=== PATIENT | female | born 1940 | race Caucasian/White ===

== ENCOUNTER 2020-01-02 14:15 | Inpatient (IN) | payer MEDICARE, SELFPAY ==
[2020-01-02] VITALS (9 sets, daily range): BP systolic 103–144; BP diastolic 46–65; PULSE 88–110; RESP 22–26; TEMP 36.7; O2SAT 93–100; BMI 15.0
--- NOTE | 2020-01-02 16:27 | ECG_ITS ---
Test Reason : SOB Blood Pressure : / mmHG Vent. Rate : 101 BPM Atrial Rate : 101 BPM P-R Int : 162 ms QRS Dur : 088 ms QT Int : 360 ms P-R-T Axes : 072 033 065 degrees QTc Int : 466 ms Sinus tachycardia Otherwise normal ECG Compare to previous EKG 24-Apr-2019 Heart rate has increased Referred By: Lolita Contreras Electronically Signed By:TODD SEWELL MD
--- NOTE | 2020-01-02 16:27 | XR_ITS ---
EXAMINATION: XR CHEST CLINICAL INFORMATION: Shortness of breath COMPARISON: 08/14/2017 TECHNIQUE: Frontal view of the chest was obtained. FINDINGS: Cardiac leads overlie the chest. The lungs are well expanded. Subtle opacities are seen in the right perihilar/infrahilar area. No pleural effusion or pneumothorax. The cardiomediastinal silhouette is within normal limits for this technique. No acute osseous abnormality. XR/XR chest 1V IMPRESSION: Subtle right mid to lower lung opacities may be infectious or inflammatory. There is no dense consolidation.
--- NOTE | 2020-01-02 16:29 | ED.URI ---
HPI - URI/Sore Throat General Chief Complaint: Upper Respiratory Symptoms Stated Complaint: LOOSE STOOL,FEVER 101 HX GASTRITIS Time Seen by Provider: 01/02/20 16:21 Source: patient Mode of arrival: EMS Limitations: no limitations History of Present Illness HPI Narrative: 79-year-old female with chronic gastritis, and chronic nonbloody watery diarrhea, patient presented with diarrhea and subjective fever last night, patient also describes some upper respiratory symptoms of exertional dyspnea and dry coughing, patient stated that she has been quarantine at home for the last 10 days and have not been exposed to somebody who is sick , also declined any recent travel. MD elicited complaint: fever and cough Onset (ago): day(s) (2) Consistency: intermittent Severity: moderate Exacerbating factors: nothing Relieving factors: nothing Related Data Home Medications Medication Instructions Recorded Confirmed omeprazole 20 mg PO DAILY@0630 12/16/19 01/02/20 pravastatin 20 mg PO BEDTIME 12/16/19 01/02/20 losartan 25 mg PO DAILY 12/26/19 01/02/20 mesalamine 1,600 mg PO BID 12/26/19 01/02/20 calcium citrate-vitamin D3 1 tab PO BID 01/02/20 01/02/20 [Citracal plus D] potassium chloride 20 meq PO BID 01/02/20 01/02/20 Previous Rx's Medication Instructions Recorded cholecalciferol (vitamin D3) 25 25 mcg PO DAILY 90 Days #90 cap 12/14/19 mcg (1,000 unit) capsule Allergies Allergy/AdvReac Type Severity Reaction Status Date / Time cephalexin [From KEFLEX] Allergy Unknown pt cannot Verified 12/26/19 16:05 remember reaction codeine [CODEINE] Allergy Unknown MOOD Verified 01/02/20 21:58 CHANGE, dizziness indigotindisulfonic acid Allergy Unknown increased Verified 10/21/19 00:00 [Indigo [place]] blood pressure blue dye [BLUE DYE] AdvReac Intermediate ELEVATED Verified 01/02/20 21:58 BLOOD PRESSURE lisinopril [LISINOPRIL] AdvReac Unknown cough, dry Verified 01/02/20 21:58 cough simvastatin [From ZOCOR] AdvReac Unknown pt can't Verified 01/02/20 21:58 remember reaction indigo charmine Allergy Unknown hypertensio Uncoded 06/11/19 00:00 n keflex Allergy Unknown Unknown Uncoded 12/26/19 16:05 lisinopril Allergy Unknown cough Uncoded 06/11/19 00:00 zocor Allergy Unknown Unknown Uncoded 12/26/19 16:05 Codeine Sulfate AdvReac Unknown dizziness Uncoded 10/21/19 00:00 From INDIGO CARMINE AdvReac Unknown HIGH BLOOD Uncoded 11/28/19 15:11 PRESSURE Review of Systems Review of Systems: all other systems are reviewed and are negative Constitutional: Reports as per HPI and Reports no additional constitutional complaints Eyes: Reports as per HPI and Reports no additional eye complaints Reports system reviewed and no additional complaints, except as documented Cardiovascular: Reports as per HPI and Reports no additional cardiovascular complaints Respiratory: Reports as per HPI and Reports no additional respiratory complaints Gastrointestinal: complained of nonbloody watery diarrhea for the past 2 days. Genitourinary: Reports no additional female genitourinary complaints Musculoskeletal: Reports no additional musculoskeletal complaints Skin/Breast: Reports system reviewed and no additional complaints, except as docu Psychiatric: Reports no additional psychiatric complaints Endocrine: Reports no additional endocrine complaints Hematologic/Lymphatic: Reports no additional hematologic/lymphatic complaints Allergic/Immunologic: Reports no additional allergic/immunologic complaints Reports system reviewed and no additional complaints, except as documented and Reports Abnormal speech present [facility] Past Medical History Medical History Cholecystectomy planned Diarrhea Social History Social History Household Members: Spouse Housing: House Do you presently have visiting nurse or other home services: No Alcohol intake: unknown Smoking Status: Never smoker Use of substances other than those prescribed or required for medical reasons: No Currently Displaying Signs/Symptoms of Drug Intoxication Withdrawal: No Have you been hit, kicked, punched, or otherwise hurt by someone within the past year? If so, by whom?: No Do you feel safe in your current relationship?: No Is there a partner from a previous relationship who is making you feel unsafe now?: No Are you made to feel afraid or neglected: No Advance Directives: No Advance Directives Information Provided: No Advance Directives on File: Yes (A Will at home) Do you have thoughts of harming others: None Do you have a plan to hurt others: No Plan Recently lost weight without trying: Yes service: No Physical Exam Vital Signs: Vital Signs: Vital Signs Temp Pulse Resp BP Pulse Ox 01/02/20 17:11 110 H 122/60 01/02/20 17:10 105 H 103/65 01/02/20 17:09 102 H 144/50 H 01/02/20 17:07 104 H 26 H 144/50 H 100 01/02/20 14:49 88 22 H 01/02/20 14:33 99 01/02/20 14:21 98.0 F 95 22 H 122/53 L 100 Body Mass Index 15.0 vital signs have been reviewed as normal and appeared to be correct. Blood pressure normal. Heart rate normal. Respiration rate normal. Temperature normal. Oxygen saturation normal. Appearance: Alert. Oriented X3. No acute distress. Head: Normal external exam. Normocephalic. Atraumatic. No Mei signs noted. No raccoon eyes noted Eyes: PERRLA. EOMI. Conjunctiva and sclera normal. Eyelids normal. ENT: EAC normal. TM's Normal. Pharynx normal. Uvula midline. Moist mucous membranes. No trismus noted. No drooling noted. No muffled voice noted. Neck: Normal inspection. Neck supple. FROM. No adenopathy. Thyroid Normal. No meningeal signs. No neck mass noted. CVS: Normal heart rate and rhythm. Heart sound normal. No murmurs noted. Pulses normal throughout. Respiratory: No respiratory distress. Painless inspiration. Breath sounds normal. No wheezes/rales/rhonchi noted. Chest nontender. No accessory muscle usage noted or decreased air movement noted. Abdomen: Soft and nontender. Bowel sounds normal in all 4 quadrants. No distention noted. No organomegaly noted. No visible injury noted. Back: No CVA tenderness. Full range of motion noted. Skin: Skin warm and dry. Normal skin color. Normal skin turgor. No rashes/lesions/lacerations noted. Extremities: No lower extremity edema. Extremities exhibit normal range of motion. Extremities nontender. Neuro: Oriented X 3. No motor deficit. No sensory deficit. Reflexes normal. Course Course Course Narrative: This is a 79-year-old female presented with 2 days of nonbloody watery diarrhea ( patient has a chronic diarrhea and chronic gastric issue), patient also been complaining of fever since yesterday and dry cough. Will check labs workup for sepsis versus severe hypovolemic diarrhea. MDM - URI/Sore Throat MDM Narrative Medical decision making narrative: 79 years old female presented with multiple problems. 1. chronic gastric issue with chronic nonbloody watery diarrhea that increased since yesterday, [place] [id number], patient also with metabolic acidosis and low bicarb which is felt to be secondary to severe diarrhea and hypokalemia, patient tested hypovolemic orthostatic vital sign, patient received IV fluid in the ED to replete her hypokalemia, we will start the patient on bicarb drip. 2. questionable subtle right mid lung opacification which is felt to be subtle to cause sepsis patient with normal lactic acid and remained normotensive. Patient not in severe sepsis at this point will treat simple noncomplicated Community acquired pneumonia, patient is tachycardic because hypovolemia and dehydration, because of low bicarb due to diarrhea patient is In metabolic acidosis which causing patient to be tachypneic as part of respiratory rule to correct the metabolic acidosis. Patient do not have a lactic acidosis. 3. The case discussed with Dr. michaels (Tractor Sweeper Driver)who felt the patient should be okay on the regular medical floor. Lab Data Result diagrams: 01/03/20 06:05 01/03/20 19:30 Labs: Lab Results 01/02/20 01/02/20 01/02/20 Range/Units 17:18 17:30 17:30 WBC 20.6 H (4.8-10.8) X10*3/uL RBC 3.84 L (4.20-5.50) X10*6/uL Hgb 10.5 L (12.0-16.0) g/dl Hct 33.2 L (37-47) % MCV 86.5 (80-98) fL MCH 27.3 (27.0-33.0) pg MCHC 31.6 (31.0-35.0) g/dl RDW 19.8 H (11.0-16.0) % Plt Count 289 D (160-400) X10*3/uL MPV 10.1 (9.4-12.3) fL Absolute Nucleated RBC 0.040 H (0.0-0.012) X10*3/uL Nucleated RBC % (auto) 0.2 (0.0-0.2) /100WBC ABG pH (7.35-7.45) ABG pCO2 (32-45) mmhg ABG pO2 (83-108) mmhg ABG HCO3 (22-26) mmol/l ABG O2 Saturation % ABG Base Excess Oxygen Given Sodium 140 (135-145) mmol/L Potassium 4.3 D (3.3-5.1) mmol/l Chloride 120 H (96-108) mmol/L Carbon Dioxide < 5 L* D (22-29) mmol/L Anion Gap 19 (12-20) BUN 31 H (9-16) mg/dL Creatinine 1.80 H (0.5-1.4) mg/dL Estim Creat Clear Calc 14.7 Estimated GFR 27 Random Glucose 155 H (60-115) mg/dL Lactic Acid (0.5-2.0) mmol/L Calcium 7.1 L (8.4-10.2) mg/dL Magnesium 1.8 (1.6-2.6) mg/dL Total Bilirubin (0.0-1.0) mg/dL Direct Bilirubin (0.0-0.5) mg/dL AST (5-31) U/L ALT (0-31) U/L Alkaline Phosphatase (39-117) U/L B-Natriuretic Peptide (<100) pg/mL Total Protein (6.5-8.0) g/dL Albumin (3.5-5.0) g/dL Lipase (8-78) U/L Urine Color YELLOW Urine Appearance HAZY Urine pH 6.0 (5.0-8.0) Ur Specific [place] 1.025 (1.005-1.025) Urine Protein 1+ H (NEG-TRACE) MG/DL Urine Glucose (UA) NEG (NEG) MG/DL Urine Ketones 5 (NEG) MG/DL Urine Blood NEG (NEG) Urine Nitrite NEG (NEG) Ur Leukocyte Esterase 1+ H (NEG) Urine RBC 1-4 (0) /HPF Urine WBC 10-14 H (0-4) /HPF Ur Squamous Epith Cells 2+ /LPF Urine Bacteria 2+ /LPF Granular Casts 10-14 /LPF Coronavirus (PCR) (Negative) 10/22/20 10/22/20 10/22/20 Range/Units 17:30 17:30 17:30 WBC (4.8-10.8) X10*3/uL RBC (4.20-5.50) X10*6/uL Hgb (12.0-16.0) g/dl Hct (37-47) % MCV (80-98) fL MCH (27.0-33.0) pg MCHC (31.0-35.0) g/dl RDW (11.0-16.0) % Plt Count (160-400) X10*3/uL MPV (9.4-12.3) fL Absolute Nucleated RBC (0.0-0.012) X10*3/uL Nucleated RBC % (auto) (0.0-0.2) /100WBC ABG pH (7.35-7.45) ABG pCO2 (32-45) mmhg ABG pO2 (83-108) mmhg ABG HCO3 (22-26) mmol/l ABG O2 Saturation % ABG Base Excess Oxygen Given Sodium (135-145) mmol/L Potassium (3.3-5.1) mmol/l Chloride (96-108) mmol/L Carbon Dioxide (22-29) mmol/L Anion Gap (12-20) BUN (9-16) mg/dL Creatinine (0.5-1.4) mg/dL Estim Creat Clear Calc Estimated GFR Random Glucose (60-115) mg/dL Lactic Acid 1.0 (0.5-2.0) mmol/L Calcium (8.4-10.2) mg/dL Magnesium (1.6-2.6) mg/dL Total Bilirubin 0.5 (0.0-1.0) mg/dL Direct Bilirubin 0.3 (0.0-0.5) mg/dL AST 8 (5-31) U/L ALT 7 (0-31) U/L Alkaline Phosphatase 88 D (39-117) U/L B-Natriuretic Peptide 83 (<100) pg/mL Total Protein 6.7 (6.5-8.0) g/dL Albumin 3.5 (3.5-5.0) g/dL Lipase 14 (8-78) U/L Urine Color Urine Appearance Urine pH (5.0-8.0) Ur Specific [place] (1.005-1.025) Urine Protein (NEG-TRACE) MG/DL Urine Glucose (UA) (NEG) MG/DL Urine Ketones (NEG) MG/DL Urine Blood (NEG) Urine Nitrite (NEG) Ur Leukocyte Esterase (NEG) Urine RBC (0) /HPF Urine WBC (0-4) /HPF Ur Squamous Epith Cells /LPF Urine Bacteria /LPF Granular Casts /LPF Coronavirus (PCR) (Negative) 01/02/20 01/02/20 01/02/20 Range/Units 17:31 17:31 18:42 WBC (4.8-10.8) X10*3/uL RBC (4.20-5.50) X10*6/uL Hgb (12.0-16.0) g/dl Hct (37-47) % MCV (80-98) fL MCH (27.0-33.0) pg MCHC (31.0-35.0) g/dl RDW (11.0-16.0) % Plt Count (160-400) X10*3/uL MPV (9.4-12.3) fL Absolute Nucleated RBC (0.0-0.012) X10*3/uL Nucleated RBC % (auto) (0.0-0.2) /100WBC ABG pH 7.13 L* (7.35-7.45) ABG pCO2 11 L* (32-45) mmhg ABG pO2 119 H (83-108) mmhg ABG HCO3 4 L (22-26) mmol/l ABG O2 Saturation 98.1 % ABG Base Excess -23.2 Oxygen Given ROOM AIR Sodium (135-145) mmol/L Potassium (3.3-5.1) mmol/l Chloride (96-108) mmol/L Carbon Dioxide (22-29) mmol/L Anion Gap (12-20) BUN (9-16) mg/dL Creatinine (0.5-1.4) mg/dL Estim Creat Clear Calc Estimated GFR Random Glucose (60-115) mg/dL Lactic Acid (0.5-2.0) mmol/L Calcium (8.4-10.2) mg/dL Magnesium Cancelled (1.6-2.6) mg/dL Total Bilirubin (0.0-1.0) mg/dL Direct Bilirubin (0.0-0.5) mg/dL AST (5-31) U/L ALT (0-31) U/L Alkaline Phosphatase (39-117) U/L B-Natriuretic Peptide (<100) pg/mL Total Protein (6.5-8.0) g/dL Albumin (3.5-5.0) g/dL Lipase (8-78) U/L Urine Color Urine Appearance Urine pH (5.0-8.0) Ur Specific [place] (1.005-1.025) Urine Protein (NEG-TRACE) MG/DL Urine Glucose (UA) (NEG) MG/DL Urine Ketones (NEG) MG/DL Urine Blood (NEG) Urine Nitrite (NEG) Ur Leukocyte Esterase (NEG) Urine RBC (0) /HPF Urine WBC (0-4) /HPF Ur Squamous Epith Cells /LPF Urine Bacteria /LPF Granular Casts /LPF Coronavirus (PCR) NEGATIVE (Negative) Imaging Data Chest x-ray: Radiologist's impression: [place] right mid to lower lung opacities may be infectious or inflammatory. CT scan - abdomen: My impression: Ascending colitis. Critical Care Time Critical Care Time Critical Care Time: Yes Total Critical Care Time: 45 Attestation: I spent 45 minutes for critical scale level for the patient, direct care at the bedside, discussing the case with email production consultant Dr. medel, reviewing labs, reviewing x-ray reviewing CT, managing severe metabolic acidosis. Discharge Plan Discharge Clinical Impression: Colitis, Hypovolemia, Dehydration, Metabolic acidosis Community acquired pneumonia Qualifiers: Laterality: right Lung location: middle lobe of lung Qualified Code(s): J18.9 - Pneumonia, unspecified organism Patient Disposition: Admitted As Inpatient Interventions: Admission Worksheet (ED) Last Done: 01/03/20 02:24 Discharge Date/Time: 01/03/20 03:00
[2020-01-02 17:32] LABS: Glucose Urine UA NEG (NEG); Leukocyte Esterase Urine 1+ (NEG); Nitrite Urine NEG (NEG); Specific Gravity - Urine 1.025 (1.005-1.025); Urine Blood NEG (NEG); Urine Ketones 5 MG/DL (NEG); Urine Protein 1+ MG/DL (NEG-TRACE)
[2020-01-02 17:34] LABS: Appearance Urine HAZY; Color Urine YELLOW
[2020-01-02 17:38] LABS: Hematocrit 33.2 % (37-47); Hemoglobin 10.5 g/dl (12.0-16.0); Mean Corpuscular HGB Conc 31.6 g/dl (31.0-35.0); Mean Corpuscular Hemoglobin 27.3 pg (27.0-33.0); Mean Corpuscular Volume 86.5 fL (80-98); Mean Platelet Volume 10.1 fL (9.4-12.3); NRBC Pct Auto 0.2 /100WBC (0.0-0.2); Platelet Count 289 X10*3/uL (160-400); Red Blood Count 3.84 X10*6/uL (4.20-5.50); Red Cell Distribution Width 19.8 % (11.0-16.0); White Blood Count 20.6 X10*3/uL (4.8-10.8)
[2020-01-02 17:47] LABS: Bacteria Urine 2+ /LPF; Squamous Epithelial Cell Urine 2+ /LPF
[2020-01-02 18:06] LABS: Alanine Aminotransferase 7 U/L (0-31); Albumin Level 3.5 g/dL (3.5-5.0); Alkaline Phosphatase 88 U/L (39-117); Aspartate Amino Transferase 8 U/L (5-31); Bilirubin Direct 0.3 mg/dL (0.0-0.5); Bilirubin Total 0.5 mg/dL (0.0-1.0); Lipase 14 U/L (8-78); Total Protein 6.7 g/dL (6.5-8.0)
[2020-01-02 18:10] LABS: B Type Natriuretic Peptide 83 pg/mL (<100)
[2020-01-02 18:17] LABS: Anion Gap 19 (12-20); Blood Urea Nitrogen 31 mg/dL (9-16); Calcium 7.1 mg/dL (8.4-10.2); Carbon Dioxide < 5 mmol/L (22-29); Chloride 120 mmol/L (96-108); Creatinine Clr Calc Pharmacy 14.7; Estimated Glomerular Filt Rate 27; Glucose Random 155 mg/dL (60-115); Potassium 4.3 mmol/l (3.3-5.1); Sodium 140 mmol/L (135-145)
--- NOTE | 2020-01-02 18:39 | CT_ITS ---
EXAMINATION: CT ABDOMEN AND PELVIS WITHOUT CONTRAST CLINICAL INFORMATION: Severe diarrhea and abdominal cramps. COMPARISON: CT abdomen and pelvis 08/05/2017 and MRI abdomen 08/07/2017 TECHNIQUE: Multidetector volumetric imaging was performed from the superior aspect of the liver through the pubic symphysis. Sagittal and coronal reformatted images were obtained on the technologist's workstation. This CT examination was performed using dose optimization techniques as appropriate, variously including the following: *Automated exposure control *Adjustment of mA and/or kV according to patient size (this includes techniques or standardized protocols for targeted exams where dose is matched to indication/reason for exam; i.e. extremities or head) *Use of iterative reconstruction technique DLP: 306 mGy-cm FINDINGS: LUNG BASES: There is patchy groundglass attenuation right lower lobe. The left lower lobe, is normal. The heart size is normal. LIVER, GALLBLADDER, AND BILIARY TREE: The liver is normal in size, shape, and attenuation. No focal hepatic lesion or biliary ductal dilatation is present. The gallbladder has been surgically removed. PANCREAS: Unremarkable. SPLEEN: There is mild splenomegaly with spleen measuring 14 cm in AP dimension. ADRENAL GLANDS: Unremarkable. KIDNEYS AND URETERS: The kidneys are normal in size, shape, and attenuation. No hydronephrosis, hydroureter, or calculi seen. No perinephric stranding. There is a large 6.2 x 4.7 cm upper pole and smaller 3.6 cm mid pole right renal cyst. There is punctate calcification or small stone in the upper pole right kidney. BLADDER: The bladder is distended. GASTROINTESTINAL TRACT: There is diffuse mural thickening and dilation of cecum and ascending colon with stool and gas within suggestive of ascending colitis the transverse and descending colon is normal caliber. The small bowel loops are normal caliber. No free air free fluid seen. ABDOMINAL WALL: No significant hernia is appreciated. LYMPH NODES: Normal. VASCULAR: Unremarkable. PELVIC VISCERA: There is no free fluid or free air. No abnormal pelvic or inguinal lymph nodes seen. OSSEOUS STRUCTURES: There are degenerative disc changes L4-L5 level-disc levels with moderate ventral spondylosis. No lytic process seen. No compression fracture. CT/CT abdomen pelvis wo con IMPRESSION: 1 a suggestive of ascending colitis without pneumatosis or diverticulitis. There is moderate stool and gas seen in the cecum and the ascending colon rest of colon is unremarkable. Right renal cyst but no radiopaque calculi or hydronephrosis seen on either side. Nonobstructive radiopaque calculi upper pole right kidney. Cholecystectomy. Mild groundglass attenuation in right lower lobe.
[2020-01-02 18:44] LABS: SARS COV2 PCR INHOUSE NEGATIVE (Negative)
[2020-01-02 18:46] LABS: Pt Ventilation O2% ROOM AIR
[2020-01-02 18:55] LABS: pH ABG 7.13 (7.35-7.45)
[2020-01-02 18:56] LABS: ABG PCO2 11 mmhg (32-45); Base Excess ABG -23.2; HCO3 ABG 4 mmol/l (22-26); PO2 ABG 119 mmhg (83-108)
[2020-01-02 18:57] LABS: Oxygen Saturation ABG 98.1 %
[2020-01-02] MEDS: 0.9 % Sodium Chloride 1,000 ML 999 ML IVCONT (19:03)
[2020-01-02] MEDS: levoFLOXacin/D5W 750 MG/150 ML PIGGYBACK 100 MG IV (19:06)
[2020-01-02 19:09] LABS: Magnesium 1.8 mg/dL (1.6-2.6)
[2020-01-02] MEDS: 0.9 % Sodium Chloride 1,000 ML 999 ML IV (19:09)
--- NOTE | 2020-01-02 21:29 | P.EN_ITS ---
Event Note Event Note: Dr. Steele called me from the ED about Mrs. Wooten because of her low pH on ABG. This is a remote note. The patient is a 79 yo woman with h/o chronic gastritis, and chronic nonbloody watery diarrhea. The patient presented to the ED this afternoon with diarrhea and subjective fever since last night. The patient also described upper respiratory symptoms of exertional dyspnea and dry cough. She stated that she?d been quarantined at home for the last 10 days and had not been exposed to anybody sick. She also denied any recent travel. Temp in the ED was 98. HR was about 90, went up to 110 after fluids. BP was about 120/50. RR was 22. Sat was 100% on room air. According to Dr. Steele, she did not look ill, and the phys exam was unremarkable. Labs in the ED were notable for a WBC of 20 (was 4.9 a week ago), Hb of 10.5 (baseline a bout 9.7), plat 289K (baseline about 150K), bicarb < 5 (was 11 on 12/25, 16 on 12/15, 15 on 12/09), BUN/creat 31/1.8 (recent baseline looks about 40/1.1). Lactate was 1.0. A blood gas was done bec of the low bicarb. On room air, ABG showed 7.13/11/119/-23. CXR: I am unable to read films on my home computer bec of connectivity issues w the new system. The radiology reading is ?Subtle opacities are seen in the right perihilar/infrahilar area.? Abd CT reading: ?suggestive of ascending colitis without pneumatosis or diverticulitis?Mild groundglass attenuation in right lower lobe.? Because of a concern for sepsis, the patient was given 30cc/kg NS. Bec of the low pH on her ABG, Dr. Steele sought my opinion, which is as follows: IMPRESSION: 1. Chronic diarrhea (etiology unknown to me at this time). 2. Acute on chronic metabolic acidosis, presumably 2? bicarb-wasting diarrhea. (Should this patient be on chronic oral bicarbonate?) 3. Acute on chronic dehydration. 4. Regardless of the fever and WBC, this patient has a Quick-sofa score of zero and is not clinically septic. All that is confirmed by the normal lactate (and by her physical appearance). 5. Normal Saline should virtually never be used as a resuscitative fluid, most especially in someone with metabolic acidosis. 6. A 30 cc/kg fluid bolus, of any kind, should never be given to an elderly person, normotensive or not, septic or not. Rather, fluid should be titrated in aliquots, based on the response, aliquot by aliquot. 7. This patient weighs only 36kg! In a patient such as this, I would have started with 500cc of LR over the first hour (unless there was a good reason to give it faster), and evaluated further fluid requirements from there. 8. After labs were returned in this patient, the appropriate further fluid for gentle resuscitation would be D5W with 3 amps bicarb at 75-100cc/hr. After the first liter, I would recheck chemistries. 9. Because of its associate complications, Levaquin should be restricted to special circumstances. In this patient, I would have chosen another antibiotic with anaerobic and GNR abdominal coverage, after blood cultures were drawn. 10. There?s no need for ICU monitoring in this patient at this time. She can be safely admitted to [facility]. Time (including extended chart rev): 80 min ([id number])
[2020-01-02] MEDS: 0.9 % Sodium Chloride 500 ML 999 ML IVCONT (22:45)
--- NOTE | 2020-01-02 22:50 | PM.IMHP ---
History of Present Illness Date of Service: 01/02/20 Chief Complaint: diarrhea / SOB 79 y/o female with PMHX of chronic diarrhea / ulcerative colitis who presented from home c/o worsening diarrhea for the past week and associated symptoms of shortness of breath at rest / intermittent dry cough/ Patient reports one episode of fever. Denies any chest pain, nausea or vomiting. On presentation to the ED patient was noted to be tachycaric, tachypneic, BP borderline, lactate normal, WBC of 20.6, ABG showing metabolic acidosis PH of 7.13 with bicarb <5 on chemestry. Creatinine of 1.8 (baseline of 1.3). UA positive for UTI and CXR positive for opacities of the right mid lower lobe of the lung. CT abdomen positive for ascending colitis. Patient meets sepsis criteria. IV fluids given in the ED, one dose of levaquin. Landscape Laborer consulted per ED who recommended bicarb to be started in the ED and patient stable to go to medical floors. Decision for admission given. Patient seen and examined at the bedside, laying down in bed in no acute distress. ROS as above otherwise negative. Physical exam positive for elderly female, rest of the exam unremarkable. 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, HTN, HLP, Hx of microscopic colitis, GERD, Breast cancer, DM (not on meds), portal vein thrombosis, cholangitis PSX: appendectomy, cystocele repair, right breast lumpectomy and axillary resection with radiation for breast cancer, cholecystectomy Toxic habits: No hx of alcohol abuse, smoking or IVDA Review of Systems Cardiovascular: Cardiovascular: Reports dyspnea Respiratory: Respiratory: Reports dyspnea Gastrointestinal: Gastrointestinal: Reports diarrhea PMFSH Medical History Cholecystectomy planned Diarrhea Functional capacity: independent ambulation Family history: reviewed and not pertinent Social History Alcohol intake: unknown Smoking Status: Unknown if ever smoked Use of substances other than those prescribed or required for medical reasons: No Advance Directives: No Advance Directives Information Provided: No Meds Allergies Allergy/AdvReac Type Severity Reaction Status Date / Time cephalexin [From KEFLEX] Allergy Unknown pt cannot Verified 12/26/19 16:05 remember reaction codeine [CODEINE] Allergy Unknown MOOD Verified 01/02/20 21:58 CHANGE, dizziness indigotindisulfonic acid Allergy Unknown increased Verified 10/21/19 00:00 [Indigo [place]] blood pressure blue dye [BLUE DYE] AdvReac Intermediate ELEVATED Verified 01/02/20 21:58 BLOOD PRESSURE lisinopril [LISINOPRIL] AdvReac Unknown cough, dry Verified 01/02/20 21:58 cough simvastatin [From ZOCOR] AdvReac Unknown pt can't Verified 01/02/20 21:58 remember reaction indigo [place] Allergy Unknown hypertensio Uncoded 06/11/19 00:00 n keflex Allergy Unknown Unknown Uncoded 12/26/19 16:05 lisinopril Allergy Unknown cough Uncoded 06/11/19 00:00 zocor Allergy Unknown Unknown Uncoded 12/26/19 16:05 Codeine Sulfate AdvReac Unknown dizziness Uncoded 10/21/19 00:00 From INDIGO CARMINE AdvReac Unknown HIGH BLOOD Uncoded 11/28/19 15:11 PRESSURE Home Medications Medication Instructions Recorded Confirmed Type omeprazole 20 mg PO DAILY@0630 12/16/19 01/02/20 History pravastatin 20 mg PO BEDTIME 12/16/19 01/02/20 History losartan 25 mg PO DAILY 12/26/19 01/02/20 History mesalamine 1,600 mg PO BID 12/26/19 01/02/20 History calcium citrate-vitamin D3 1 tab PO BID 01/02/20 01/02/20 History [Citracal plus D] potassium chloride 20 meq PO BID 01/02/20 01/02/20 History Physical Exam Vital Signs and Narrative: Vital Signs: Last Vital Signs Temp 98.0 F 01/02/20 14:21 Pulse 110 H 01/02/20 17:11 Resp 26 H 01/02/20 17:07 BP 122/60 01/02/20 17:11 Pulse Ox 100 01/02/20 17:07 Body Mass Index 15.0 Const: General: healthy appearing, comfortable and no acute distress Orientation/consciousness: oriented to person, oriented to place and oriented to time HENMT: Head: Yes normal to inspection Eyes: General: appearance normal, both eyes and all related structures Neck: Yes normal visual inspection Chest: Chest palpation & inspection: normal inspection of the chest Resp: Effort & Inspection: normal respiratory effort and symmetric chest movement Cardio: Jugular venous distension: no JVD Rhythm: regular rhythm Heart sounds: S1 normal heart sound present and S2 normal heart sound present GI: Inspection: Yes normal to inspection Skin: General skin exam: no rashes or lesions noted Neuro: General: oriented to person, oriented to place and oriented to time Extrem: General: Yes normal to inspection Psych: Appearance: grossly normal Results Labs Labs: Laboratory Tests 01/02/20 01/02/20 01/02/20 17:18 17:30 17:30 WBC 20.6 H RBC 3.84 L Hgb 10.5 L Hct 33.2 L MCV 86.5 MCH 27.3 MCHC 31.6 RDW 19.8 H Plt Count 289 D MPV 10.1 Absolute Nucleated RBC 0.040 H Nucleated RBC % (auto) 0.2 ABG pH ABG pCO2 ABG pO2 ABG HCO3 ABG O2 Saturation ABG Base Excess Oxygen Given Sodium 140 Potassium 4.3 D Chloride 120 H Carbon Dioxide < 5 L* D Anion Gap 19 BUN 31 H Creatinine 1.80 H Estim Creat Clear Calc 14.7 Estimated GFR 27 Random Glucose 155 H Lactic Acid Calcium 7.1 L Magnesium 1.8 Total Bilirubin Direct Bilirubin AST ALT Alkaline Phosphatase B-Natriuretic Peptide Total Protein Albumin Lipase Urine Color YELLOW Urine Appearance HAZY Urine pH 6.0 Ur Specific [place] 1.025 Urine Protein 1+ H Urine Glucose (UA) NEG Urine Ketones 5 Urine Blood NEG Urine Nitrite NEG Ur Leukocyte Esterase 1+ H Urine RBC 1-4 Urine WBC 10-14 H Ur Squamous Epith Cells 2+ Urine Bacteria 2+ Granular Casts 10-14 Coronavirus (PCR) 01/02/20 01/02/20 01/02/20 17:30 17:30 17:30 WBC RBC Hgb Hct MCV MCH MCHC RDW Plt Count MPV Absolute Nucleated RBC Nucleated RBC % (auto) ABG pH ABG pCO2 ABG pO2 ABG HCO3 ABG O2 Saturation ABG Base Excess Oxygen Given Sodium Potassium Chloride Carbon Dioxide Anion Gap BUN Creatinine Estim Creat Clear Calc Estimated GFR Random Glucose Lactic Acid 1.0 Calcium Magnesium Total Bilirubin 0.5 Direct Bilirubin 0.3 AST 8 ALT 7 Alkaline Phosphatase 88 D B-Natriuretic Peptide 83 Total Protein 6.7 Albumin 3.5 Lipase 14 Urine Color Urine Appearance Urine pH Ur Specific [place] Urine Protein Urine Glucose (UA) Urine Ketones Urine Blood Urine Nitrite Ur Leukocyte Esterase Urine RBC Urine WBC Ur Squamous Epith Cells Urine Bacteria Granular Casts Coronavirus (PCR) 01/02/20 01/02/20 01/02/20 17:31 17:31 18:42 WBC RBC Hgb Hct MCV MCH MCHC RDW Plt Count MPV Absolute Nucleated RBC Nucleated RBC % (auto) ABG pH 7.13 L* ABG pCO2 11 L* ABG pO2 119 H ABG HCO3 4 L ABG O2 Saturation 98.1 ABG Base Excess -23.2 Oxygen Given ROOM AIR Sodium Potassium Chloride Carbon Dioxide Anion Gap BUN Creatinine Estim Creat Clear Calc Estimated GFR Random Glucose Lactic Acid Calcium Magnesium Cancelled Total Bilirubin Direct Bilirubin AST ALT Alkaline Phosphatase B-Natriuretic Peptide Total Protein Albumin Lipase Urine Color Urine Appearance Urine pH Ur Specific [place] Urine Protein Urine Glucose (UA) Urine Ketones Urine Blood Urine Nitrite Ur Leukocyte Esterase Urine RBC Urine WBC Ur Squamous Epith Cells Urine Bacteria Granular Casts Coronavirus (PCR) NEGATIVE Assessment and Plan (1) Sepsis: Status: Acute (2) Colitis: Status: Acute (3) UTI (urinary tract infection): Status: Acute (4) Community acquired pneumonia: Qualifiers: Laterality: right Lung location: middle lobe of lung Qualified Code(s): J18.9 - Pneumonia, unspecified organism Status: Acute (5) Dehydration: Status: Acute (6) Metabolic acidosis: Status: Acute (7) HTN (hypertension): Status: Acute (8) Hyperlipidemia: Status: Acute (9) GERD (gastroesophageal reflux disease): Status: Acute Sepsis likely secondary to multiple etiologies: Colitis vs CAP vs UTI S/p one dose of levaquin in the ED Continue with Levaquin for gram neg coverage Follow up Bcx and Ucx Start with Flagyl for anaerobic coverage Keep MAP >65 mmHg After aggressive IV hydration in the ED now vitals stable. lactate normal Continue with Bicarb drip as recommended per biomedical instrument technician and will repeat ABG continue with mesalamine home dose for colitis Infectious disease consult in the am Landscape Laborer to follow up HX of HTN Continue with losartan home dose Hx of HLP continue with statin home dose Hx of GERD continue with PPI home dose
[2020-01-03] VITALS (10 sets, daily range): BP systolic 100–150; BP diastolic 53–73; PULSE 82–104; RESP 17–26; TEMP 36–36.9; O2SAT 97–100; BMI 15.0
--- NOTE | 2020-01-03 | ECG_ITS ---
Test Reason : CP Blood Pressure : / mmHG Vent. Rate : 096 BPM Atrial Rate : 096 BPM P-R Int : 168 ms QRS Dur : 080 ms QT Int : 380 ms P-R-T Axes : 074 030 060 degrees QTc Int : 480 ms Normal sinus rhythm Normal ECG When compared with ECG of 03-JAN-2020 02:05, No significant change was found Referred By: Lolita Contreras Electronically Signed By:TODD SEWELL MD
[2020-01-03] MEDS: Heparin Sodium,Porcine 5,000 UNIT/ML VIAL 5000 UNIT SUBCUT ×4 (00:05→22:35)
[2020-01-03] MEDS: metroNIDAZOLE/NS 500 MG/100 ML PIGGYBACK 100 MG IV (00:06)
--- NOTE | 2020-01-03 00:10 | PC.NURSE ---
sodium bicarb not available in ed. pt well received once on the floor.
--- NOTE | 2020-01-03 01:32 | PC.NURSE ---
provider made aware of the non availabily of the sodium bicarb is not available in the ed and can be given on the floor. lab reviewed with dr castillo
--- NOTE | 2020-01-03 01:40 | PM.EVENT ---
Event Note Event Note: Antibiotic course changed to Zosyn for gram neg and anaerobic coverage. It is unclear what type the reaction patient had to cephalexin but there is no documentation of penicillin allergies in the past. Will give first dose any closely monitor.
--- NOTE | 2020-01-03 02:05 | ECG_ITS ---
Test Reason : SHORTNESS OF BREATH ,CHEST PAIN Blood Pressure : / mmHG Vent. Rate : 094 BPM Atrial Rate : 094 BPM P-R Int : 168 ms QRS Dur : 082 ms QT Int : 396 ms P-R-T Axes : 000 035 056 degrees QTc Int : 495 ms Normal sinus rhythm Normal ECG When compared with ECG of 02-Jan-2020 No significant changes seen Referred By: Lolita Contreras Electronically Signed By:TODD SEWELL MD
[2020-01-03] MEDS: Piperacillin Sodium/Tazobactam 3.375 GM in 0.9 % Sodium Chloride 50 ML IV ×4 (03:04→19:49)
[2020-01-03] MEDS: 0.9 % Sodium Chloride Flush 3 ML SYRINGE IVFLUSH ×3 (03:05→22:37)
[2020-01-03 03:26] LABS: Alanine Aminotransferase 7 U/L (0-31); Alkaline Phosphatase 80 U/L (39-117); Anion Gap 15 (12-20); Aspartate Amino Transferase 12 U/L (5-31); Bilirubin Total 0.4 mg/dL (0.0-1.0); Blood Urea Nitrogen 31 mg/dL (9-16); Calcium 6.3 mg/dL (8.4-10.2); Carbon Dioxide < 5 mmol/L (22-29); Chloride 125 mmol/L (96-108); Creatinine Clr Calc Pharmacy 18.3; Estimated Glomerular Filt Rate 35; Glucose Random 138 mg/dL (60-115); Potassium 4.2 mmol/l (3.3-5.1); Sodium 141 mmol/L (135-145); Total Protein 5.9 g/dL (6.5-8.0)
[2020-01-03] MEDS: Sodium Bicarbonate 8.4% 100 MEQ in Dextrose 5 % 900 ML 50 MEQ IV (03:36)
[2020-01-03] MEDS: Omeprazole 20 MG CAPSULE.DR PO (05:40)
[2020-01-03 06:30] LABS: Basophils Percent Auto 0.2 % (0-2); Hematocrit 30.4 % (37-47); Hemoglobin 9.2 g/dl (12.0-16.0); Imm Gran Abs Auto 0.16 X10*3/uL (0.00-0.03); Imm Gran Pct Auto 1.3 % (0.0-0.4); Lymphocytes Absolute Auto 0.3 X10*3/uL (1.2-4.9); Lymphocytes Percent Auto 2.5 % (20-40); MANUAL DIFF FLAG SCAN; Mean Corpuscular HGB Conc 30.3 g/dl (31.0-35.0); Mean Corpuscular Hemoglobin 26.6 pg (27.0-33.0); Mean Corpuscular Volume 87.9 fL (80-98); Mean Platelet Volume 10.2 fL (9.4-12.3); Monocytes Absolute Auto 0.5 X10*3/uL (0.1-1.2); Monocytes Percent Auto 4.4 % (2-11); NRBC Pct Auto 0.2 /100WBC (0.0-0.2); Neutrophils Absolute Auto 10.9 X10*3/uL (2.0-8.3); Neutrophils Percent Auto 91.6 % (45-73); Platelet Count 207 X10*3/uL (160-400); Red Blood Count 3.46 X10*6/uL (4.20-5.50); Red Cell Distribution Width 19.8 % (11.0-16.0); SCAN SMEAR FLAG 1; White Blood Count 11.9 X10*3/uL (4.8-10.8)
[2020-01-03 07:11] LABS: Alanine Aminotransferase 7 U/L (0-31); Albumin Level 2.8 g/dL (3.5-5.0); Alkaline Phosphatase 73 U/L (39-117); Aspartate Amino Transferase 9 U/L (5-31); Bilirubin Total 0.4 mg/dL (0.0-1.0); Blood Urea Nitrogen 30 mg/dL (9-16); Calcium 6.2 mg/dL (8.4-10.2); Estimated Glomerular Filt Rate 36; Glucose Random 156 mg/dL (60-115); Total Protein 5.4 g/dL (6.5-8.0)
[2020-01-03 07:21] LABS: Carbon Dioxide < 5 mmol/L (22-29); Chloride 123 mmol/L (96-108); Sodium 141 mmol/L (135-145)
[2020-01-03 07:49] LABS: SLIDE REVIEW VERIFIED
[2020-01-03 08:04] LABS: Pt Ventilation O2% ROOM AIR
[2020-01-03 08:07] LABS: Base Excess ABG -21.4; HCO3 ABG 4 mmol/l (22-26); PO2 ABG 123 mmhg (83-108)
[2020-01-03 08:08] LABS: Oxygen Saturation ABG 98.4 %
[2020-01-03 08:11] LABS: ABG PCO2 11 mmhg (32-45)
--- NOTE | 2020-01-03 09:09 | P.CDIC_ITS ---
CDI Concurrent Query Service Date: 01/03/20 Documentation Clarification: Please clarify if you are treating a proba ble/suspected/likely or confirmed: Mild, moderate or severe protein calorie malnutrition poa Underweight Please specify if known Provider Response: Moderate Protein-Calorie Malnutrition PLEASE DO NOT DELETE/MODIFY EXISTING CONTENT Additional information is needed in order to code to the highest accuracy and appropriate Severity of Illness (SOI). Please clarify the information noted below in your progress notes and discharge summary. Risk Factors/Clinical Indicators/Treatments Body mass index: 15.1 Total protein 5.4 Albumin 2.8 CDS: Nella Espinoza CCS, CDIS Contact Number: [phone] Please Review the information above and exercise your independent professional judgment in responding to the query. If you concur, pleas document in the PROGRESS NOTES and DISCHARGE SUMMARY. If you do not agree with the query, please document in the query above. THIS QUERY IS PART OF THE PERMANENT MEDICAL RECORD
--- NOTE | 2020-01-03 09:27 | HO.PM.IMPN ---
Subjective Subjective Date of Service: 01/03/20 Interval History: Seen in follow up for non gap metabolic acidosis, colitis. She describes persistent non bloody diarrhea and apparent has been going on for years due microscopic colitis that is overseen by Dr. Amaya Review of Systems Gen: no fever GI: no pain but diearrhea, no nausea Physical Exam Vital Signs: Vital Signs: Vital Signs Temp Pulse Resp BP Pulse Ox 01/03/20 08:00 97.7 F 94 20 130/73 100 01/03/20 06:00 98.4 F 82 141/55 H 100 01/03/20 02:44 96.8 F 97 18 131/65 98 01/03/20 01:57 95 26 H 133/55 L 97 01/02/20 23:25 99 24 H 136/46 L 100 01/02/20 17:11 110 H 122/60 01/02/20 17:10 105 H 103/65 01/02/20 17:09 102 H 144/50 H 01/02/20 17:07 104 H 26 H 144/50 H 100 01/02/20 14:49 88 22 H 01/02/20 14:33 99 01/02/20 14:21 98.0 F 95 22 H 122/53 L 100 Body Mass Index 15.0 Constitutional Awake and Alert, No apparent distress, frail looking and malnurished Cardiovascular RRR, No M/R/G, S1 S2, No S3 S4, No pedal edema Respiratory Lungs clear, No respiratory distress Gastrointestinal Non tender, Non-distended Skin No rash Neurological Alert & oriented x3 Psychological Appropriate affect Objective Data Current Medications Generic Name Dose Route Start Last Admin Trade Name Andre PRN Reason Stop Dose Admin Calcium Carbonate/Cholecalciferol 250 mg 01/03/20 09:00 Calcium + Vitamin D 250 Mg Tablet PO BID АЛЕКСАНДР Heparin Sodium (Porcine) 5,000 unit 01/02/20 23:25 01/03/20 07:39 Heparin Sodium,Porcine 5,000 Unit/Ml Vial SUBCUT 5,000 unit Q8H АЛЕКСАНДР Administration Sodium Bicarbonate 100 meq/ 1,000 mls @ 50 mls/hr 01/02/20 20:44 01/03/20 03:36 Dextrose IV 01/03/20 16:43 50 mls/hr .Q20H ONE Administration Piperacillin Sod/Tazobactam 50 mls @ 100 mls/hr 01/03/20 02:00 01/03/20 08:35 Sod 3.375 gm/ Sodium Chloride IV Infused Q6H [facility] Infusion Losartan Potassium 25 mg 01/03/20 09:00 Losartan Potassium 25 Mg Tablet PO DAILY [facility] Protocol Mesalamine 1,600 mg 01/03/20 09:00 Mesalamine 400 Mg Cap.Drtab. PO BID [facility] Omeprazole 20 mg 01/03/20 06:30 01/03/20 05:40 Omeprazole 20 Mg Capsule.Dr PO 20 mg DAILY@0630 [facility] Administration Pharmacy Consult 1 each 01/02/20 21:01 Consult Rx Perform Med Rec MISCELLANE ONCE PRN Consult order Potassium Chloride 20 meq 01/03/20 09:00 Potassium Chloride Er 20 Meq Tab.Er.Prt PO BID [facility] Pravastatin Sodium 20 mg 01/03/20 21:00 Pravastatin Sodium 20 Mg Tablet PO BEDTIME [facility] Sodium Chloride 3 ml 01/03/20 00:00 01/03/20 07:39 0.9 % Sodium Chloride Flush 3 Ml Syringe IVFLUSH 3 ml QSHIFT [facility] Administration Vitamin D 25 mcg 01/03/20 09:00 Cholecalciferol (Vitamin D3) 25 Mcg Tablet PO DAILY [facility] Labs CBC & Chem 7: 01/03/20 06:05 01/03/20 06:05 Assessment and Plan (1) Sepsis: Status: Acute (2) Colitis: Status: Acute (3) Hyperlipidemia: Status: Acute (4) HTN (hypertension): Status: Acute (5) Metabolic acidosis: Status: Acute (6) UTI (urinary tract infection): Status: Acute (7) Dehydration: Status: Acute Assessment and Plan: 79/F with history of Invasive ductal carcinoma grade 3 diagnosed approximately 15 years ago status post right breast lumpectomy and radiation therapy, chronic anemia d/t MDS, HTN, HLD, GERD, Microscopic colitis followed by Dr. Amaya, h/o T2 DM no longer on meds, chronic diarrhea who presented with sob and diarrhea, and CT of abdomen shows ascending colitis and CXR is questionable for PNA and there is UTI 1. Sepsis related to colitis, UTI and possible PNA. clinically improving. WBC down from 20K to 11K -Continue Zosyn, ID consult pending. 2. UTI, PNA--same management as above 3. Severe Non gap metabolic acidosis related to diarrhea. On bicab replacemtn -Get Nephrology consultation. 4. Colitis, chronic diarrhea--GI consult 5. SHELLI d/t dehydration, diarrhea, improving. Hold Losartan 6. HLD--Pravastatin 7. GERD--Omeprazole 8.DVT--heparin but watch H/H closely and d/c if trednding down in lieur compressive devices
--- NOTE | 2020-01-03 10:05 | PC.NURSE ---
PT REQUESTING DAUGHTER, RAIMUNDO TAO TO BE CALLED AND UPDATED ON TRANSFER. THIS RN ATTEMPTED TO CALL X2, BUT GOT VOICEMAIL. VOICEMAIL LEFT, INFORMED ROOM CHANGE AND GAVE IMC NUMBER. IMC RN MADE AWARE.
[2020-01-03] MEDS: Losartan Potassium 25 MG TABLET PO (10:53)
[2020-01-03] MEDS: Calcium + Vitamin D 250 MG TABLET PO ×2 (10:54→20:16)
[2020-01-03] MEDS: Cholecalciferol (Vitamin D3) 25 MCG TABLET PO (10:54)
[2020-01-03] MEDS: Potassium Chloride ER 20 MEQ TAB.ER.PRT PO ×2 (10:54→20:15)
[2020-01-03] MEDS: Mesalamine 400 MG CAP.DRTAB. 1600 MG PO ×2 (10:59→20:15)
--- NOTE | 2020-01-03 11:43 | PM.CNNEP ---
History of Present Illness Reason for Consult Consult date: 01/03/20 Chief Complaint Chief complaint: HX GASTRITIS/DIARRHEA History of Present Illness Narrative: 79 y/o c/o incr diarrhea.. worse than my usual ; gen weakness. No GH but c/o dysuria. No CP. 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, HTN, HLP, Hx of microscopic colitis, GERD, Breast cancer, DM (not on meds), portal vein thrombosis, cholangitis PSX: appendectomy, cystocele repair, right breast lumpectomy and axillary resection with radiation for breast cancer, cholecystectomy PMFSH Past Medical History Medical History Cholecystectomy planned Diarrhea Functional capacity: independent ambulation Family History Family history: reviewed and not pertinent Social History Social History Household Members: Spouse Housing: House Do you presently have visiting nurse or other home services: No Alcohol intake: unknown Smoking Status: Never smoker Use of substances other than those prescribed or required for medical reasons: No Have you been hit, kicked, punched, or otherwise hurt by someone within the past year? If so, by whom?: No Do you feel safe in your current relationship?: No Is there a partner from a previous relationship who is making you feel unsafe now?: No Are you made to feel afraid or neglected: No Advance Directives: No Advance Directives Information Provided: No Advance Directives on File: Yes (A Will at home) Do you have thoughts of harming others: None Do you have a plan to hurt others: No Plan Recently lost weight without trying: Yes Meds Allergies Allergy/AdvReac Type Severity Reaction Status Date / Time cephalexin [From KEFLEX] Allergy Unknown pt cannot Verified 12/26/19 16:05 remember reaction codeine [CODEINE] Allergy Unknown MOOD Verified 01/02/20 21:58 CHANGE, dizziness indigotindisulfonic acid Allergy Unknown increased Verified 10/21/19 00:00 [Indigo [place]] blood pressure blue dye [BLUE DYE] AdvReac Intermediate ELEVATED Verified 01/02/20 21:58 BLOOD PRESSURE lisinopril [LISINOPRIL] AdvReac Unknown cough, dry Verified 01/02/20 21:58 cough simvastatin [From ZOCOR] AdvReac Unknown pt can't Verified 01/02/20 21:58 remember reaction indigo [place] Allergy Unknown hypertensio Uncoded 06/11/19 00:00 n keflex Allergy Unknown Unknown Uncoded 12/26/19 16:05 lisinopril Allergy Unknown cough Uncoded 06/11/19 00:00 zocor Allergy Unknown Unknown Uncoded 12/26/19 16:05 Codeine Sulfate AdvReac Unknown dizziness Uncoded 10/21/19 00:00 From INDIGO CARMINE AdvReac Unknown HIGH BLOOD Uncoded 11/28/19 15:11 PRESSURE Home Medications Medication Instructions Recorded Confirmed Type omeprazole 20 mg PO DAILY@0630 12/16/19 01/02/20 History pravastatin 20 mg PO BEDTIME 12/16/19 01/02/20 History losartan 25 mg PO DAILY 12/26/19 01/02/20 History mesalamine 1,600 mg PO BID 12/26/19 01/02/20 History calcium citrate-vitamin D3 1 tab PO BID 01/02/20 01/02/20 History [Citracal plus D] potassium chloride 20 meq PO BID 01/02/20 01/02/20 History Physical Exam Vital Signs: Vital Signs Temp Pulse Resp BP Pulse Ox 01/03/20 10:53 96 135/64 01/03/20 09:46 97.8 F 96 20 135/64 100 01/03/20 08:00 97.7 F 94 20 130/73 100 01/03/20 06:00 98.4 F 82 141/55 H 100 01/03/20 02:44 96.8 F 97 18 131/65 98 01/03/20 01:57 95 26 H 133/55 L 97 01/02/20 23:25 99 24 H 136/46 L 100 01/02/20 17:11 110 H 122/60 01/02/20 17:10 105 H 103/65 01/02/20 17:09 102 H 144/50 H 01/02/20 17:07 104 H 26 H 144/50 H 100 01/02/20 14:49 88 22 H 01/02/20 14:33 99 01/02/20 14:21 98.0 F 95 22 H 122/53 L 100 Body Mass Index 15.0 Constitutional Awake and Alert, No apparent distress, frail looking and malnurished Cardiovascular RRR, No M/R/G, S1 S2, No S3 S4, No pedal edema Respiratory Lungs clear, No respiratory distress Gastrointestinal Non tender, Non-distended Skin No rash Neurological Alert & oriented x3 Psychological Appropriate affect Const General: healthy appearing, comfortable and no acute distress Orientation/consciousness: oriented to person, oriented to place and oriented to time HENMT Head: Yes normal to inspection Eyes General: appearance normal, both eyes and all related structures Neck Neck: Yes normal visual inspection Chest Chest palpation & inspection: normal inspection of the chest Resp Effort & Inspection: normal respiratory effort and symmetric chest movement Cardio Jugular venous distension: no JVD Rhythm: regular rhythm Heart sounds: S1 normal heart sound present and S2 normal heart sound present GI Inspection: Yes normal to inspection Skin General skin exam: no rashes or lesions noted Neuro General: oriented to person, oriented to place and oriented to time Extrem General: Yes normal to inspection Psych Appearance: grossly normal Results Lab Results Result Diagrams: 01/03/20 06:05 01/03/20 06:05 Lab results: Chemistry 01/02/20 01/03/20 01/03/20 17:30 02:55 06:05 Sodium 140 141 141 Potassium 4.3 D 4.2 4.0 Carbon Dioxide < 5 L* D < 5 L* < 5 L* BUN 31 H 31 H 30 H Creatinine 1.80 H 1.45 H 1.40 Calcium 7.1 L 6.3 L 6.2 L Hematology 01/02/20 01/03/20 17:30 06:05 WBC 20.6 H 11.9 H Hgb 10.5 L 9.2 L Plt Count 289 D 207 D Urinalysis 01/02/20 17:18 Urine Color YELLOW Urine Appearance HAZY Urine pH 6.0 Ur Specific [place] 1.025 Urine Protein 1+ H Urine Glucose (UA) NEG Urine Ketones 5 Urine Blood NEG Urine Nitrite NEG Ur Leukocyte Esterase 1+ H Urine RBC 1-4 Urine WBC 10-14 H Ur Squamous Epith Cells 2+ Assessment and Plan (1) Sepsis: Status: Acute (2) Colitis: Status: Acute (3) Hyperlipidemia: Status: Acute (4) HTN (hypertension): Status: Acute (5) Metabolic acidosis: Status: Acute (6) UTI (urinary tract infection): Status: Acute (7) Dehydration: Status: Acute 1. Severe NAGMA with HCOe < 5 depsite onging IV NaHCO3: most c/w diarrhea losses as MAIN cause but givem the severity ques RTA playin a contributing role 2. Colityis: severe diarrhea 3. Sepsis 4. UTI REC: incvr IV NaHCO3; ques anti-motility agent; check urine anio gap which chould be very negative ( s/w high Urine NH4) in support of diarrhea and incr renal ammonigensies to try and compensate
--- NOTE | 2020-01-03 13:51 | MHC.CLN ---
PT IS MILDLY MALNOURISHED WILL START 1200 DM DIET R/T HX DM WILL ALSO START GLUCERNA BETWEEN MEALS TO INCREASE KCALS SEE ALSO NUTRITION ASSESSMENT
--- NOTE | 2020-01-03 14:47 | MHC.CM.PN ---
met with pt who lives with her she explins mthat ntheuy had no servcei prior to admission and does not anticapate needing servceis whe nshe is dcd
[2020-01-03] MEDS: Sodium Bicarbonate 8.4% 100 MEQ in Dextrose 5 % 900 ML 200 MEQ IV (18:23)
--- NOTE | 2020-01-03 19:39 | CONS_ITS ---
DATE OF SERVICE: 01/03/2020 REFERRING PHYSICIAN: Siddharth Kaba MD REASON FOR CONSULTATION: Colitis and diarrhea. HISTORY OF PRESENT ILLNESS: The patient is a 79-year-old woman, who was admitted to the hospital on January 01 after presenting to the emergency room with complaints of diarrhea with shortness of breath, cough and fever. She was evaluated with laboratory studies showing elevated white blood cell count to 20, with a carbon dioxide of less than 5, and an anion gap of 19. She was evaluated with imaging including CT scanning of the abdomen and pelvis, which is reviewed. This is interpreted as showing changes of ascending colitis with diffuse mural thickening and dilation of the cecum and ascending colon with stool and gas. The patient has a history of microscopic colitis and was recently evaluated in the office on December 09 because of mouth sores. She had her Asacol dose as an outpatient increased to 1600 mg b.i.d. because of persistent diarrheal symptoms and was treated with prednisone for mouth ulcers. She last underwent colonoscopy on June 09, 2011, which showed mild diverticulosis of the sigmoid and no evidence endoscopically of colitis. Previous biopsies of 2007 had shown mild to moderate lymphocytic colitis. She reports that since being on the higher dose of Asacol, she has had some improvement in her diarrheal symptoms. She finds that when she takes Imodium, she tends to get a feeling of dryness and finds this to be an undesirable side effect. She denies any recent rectal bleeding, travel or exposures to ill contacts and has not been on any antibiotics as an outpatient. PAST MEDICAL HISTORY: 1. Microscopic colitis as above. 2. Anemia/myelodysplastic syndrome. 3. Hypertension. 4. Hyperlipidemia. 5. Gastroesophageal reflux disease. 6. Breast cancer. 7. Diabetes. 8. Portal vein thrombosis. 9. Choledocholithiasis, status post ERCP. CURRENT MEDICATIONS: Her current medication list is reviewed in the chart. ALLERGIES: LISINOPRIL AND CODEINE. SHE HAS OTHER ALLERGIES WELL THAT ARE REVIEWED. FAMILY HISTORY: This is reviewed and is noncontributory. SOCIAL HISTORY: There is no current tobacco, alcohol, or substance abuse. REVIEW OF SYSTEMS: SKIN: No pruritus. HEENT: Negative. CARDIOPULMONARY: No shortness of breath or chest pain. GASTROINTESTINAL: As above. GENITOURINARY: Negative. NEUROPSYCHIATRIC: Negative. PHYSICAL EXAMINATION: GENERAL: Shows a pleasant, elderly female, in no acute distress. VITAL SIGNS: Reviewed in the electronic medical records and are stable. SKIN: Anicteric. HEENT: No scleral icterus. NECK: Without lymphadenopathy or thyromegaly. LUNGS: Clear. HEART: Regular rate and rhythm. S1, S2. No murmur. ABDOMEN: Soft. No focal masses or tenderness. Bowel sounds are present. No organomegaly is noted. EXTREMITIES: Without edema. IMPRESSION: She appears to have chronic diarrheal symptoms from colitis as above. I would recommend continuing her present dose of mesalamine. She may benefit from routine antidiarrheals since she seems to have some side effects from Lomotil. We will try diphenoxylate/atropine. Thanks for asking me to see her. I will follow her in the hospital with you. MD JC Matta/RAY / [id number]
[2020-01-03 20:16] LABS: Anion Gap 15 (12-20); Carbon Dioxide 6 mmol/L (22-29); Chloride 123 mmol/L (96-108); Potassium 3.2 mmol/l (3.3-5.1); Sodium 141 mmol/L (135-145)
[2020-01-03] MEDS: Pravastatin Sodium 20 MG TABLET PO (20:16)
[2020-01-03 20:26] LABS: pH VBG 7.33 (7.32-7.43)
[2020-01-03] MEDS: Sodium Bicarbonate 8.4% 100 MEQ in Dextrose 5 % 900 ML IV (23:58)
[2020-01-04] VITALS (7 sets, daily range): BP systolic 104–117; BP diastolic 46–61; PULSE 84–94; RESP 16–18; TEMP 36.2–37.1; O2SAT 97–100
[2020-01-04] MEDS: Piperacillin Sodium/Tazobactam 3.375 GM in 0.9 % Sodium Chloride 50 ML IV ×4 (01:01→19:47)
[2020-01-04 01:46] LABS: Anion Gap 14 (12-20); Blood Urea Nitrogen 23 mg/dL (9-16); Calcium 6.3 mg/dL (8.4-10.2); Carbon Dioxide 10 mmol/L (22-29); Chloride 120 mmol/L (96-108); Creatinine Clr Calc Pharmacy 19.6; Estimated Glomerular Filt Rate 38; Glucose Random 251 mg/dL (60-115); Sodium 141 mmol/L (135-145)
[2020-01-04] MEDS: Potassium Chloride/H20 10 MEQ/100 ML PIGGYBACK 100 MEQ IV ×4 (02:11→05:17)
[2020-01-04] MEDS: Omeprazole 20 MG CAPSULE.DR PO (05:17)
[2020-01-04 07:12] LABS: Basophils Percent Auto 0.2 % (0-2); Hematocrit 22.5 % (37-47); Hemoglobin 7.3 g/dl (12.0-16.0); Imm Gran Abs Auto 0.04 X10*3/uL (0.00-0.03); Imm Gran Pct Auto 0.8 % (0.0-0.4); Lymphocytes Absolute Auto 0.3 X10*3/uL (1.2-4.9); MANUAL DIFF FLAG SCAN; Mean Corpuscular HGB Conc 32.4 g/dl (31.0-35.0); Mean Corpuscular Hemoglobin 26.4 pg (27.0-33.0); Mean Corpuscular Volume 81.5 fL (80-98); Mean Platelet Volume 10.5 fL (9.4-12.3); Monocytes Absolute Auto 0.2 X10*3/uL (0.1-1.2); Monocytes Percent Auto 4.5 % (2-11); Neutrophils Absolute Auto 4.7 X10*3/uL (2.0-8.3); Neutrophils Percent Auto 88.5 % (45-73); Platelet Count 171 X10*3/uL (160-400); Red Blood Count 2.76 X10*6/uL (4.20-5.50); Red Cell Distribution Width 19.5 % (11.0-16.0); SCAN SMEAR FLAG 1; White Blood Count 5.3 X10*3/uL (4.8-10.8)
[2020-01-04 08:12] LABS: Anion Gap 13 (12-20); Blood Urea Nitrogen 20 mg/dL (9-16); Carbon Dioxide 12 mmol/L (22-29); Chloride 119 mmol/L (96-108); Creatinine Clr Calc Pharmacy 21.2; Estimated Glomerular Filt Rate 41; Glucose Random 189 mg/dL (60-115); Potassium 3.6 mmol/l (3.3-5.1); Sodium 140 mmol/L (135-145)
[2020-01-04 08:15] LABS: SLIDE REVIEW VERIFIED
[2020-01-04] MEDS: 0.9 % Sodium Chloride Flush 3 ML SYRINGE IVFLUSH ×3 (09:04→20:58)
[2020-01-04] MEDS: Heparin Sodium,Porcine 5,000 UNIT/ML VIAL 5000 UNIT SUBCUT ×2 (09:04→15:32)
[2020-01-04] MEDS: Calcium + Vitamin D 250 MG TABLET PO ×2 (09:07→20:58)
[2020-01-04] MEDS: Mesalamine 400 MG CAP.DRTAB. 1600 MG PO ×2 (09:07→20:58)
[2020-01-04] MEDS: Potassium Chloride ER 20 MEQ TAB.ER.PRT PO ×2 (09:07→20:58)
[2020-01-04] MEDS: Losartan Potassium 25 MG TABLET PO (09:08)
[2020-01-04] MEDS: Cholecalciferol (Vitamin D3) 25 MCG TABLET PO (09:08)
[2020-01-04] MEDS: Calcium Gluconate/NaCl,Iso-Osm 2 GM/100 ML PLAST..BAG IV (10:09)
--- NOTE | 2020-01-04 15:54 | HO.PM.IMPN ---
Subjective Subjective Date of Service: 01/04/20 Interval History: the patient was seen and evaluated this morning Laying in bed, feels comfortable reports 2 episodes of diarrhea a day Denies any fever, chills or shortness of breath No reported other overnight events. Review of Systems Review of Systems: Yes all other systems are reviewed and are negative Physical Exam Vital Signs: Vital Signs: Vital Signs Temp Pulse Resp BP Pulse Ox 01/04/20 11:34 98.4 F 94 18 117/61 97 01/04/20 09:08 85 106/55 L 01/04/20 07:39 97.6 F 85 18 106/55 L 99 01/04/20 03:14 98.7 F 88 18 111/52 L 100 01/03/20 23:28 97.9 F 104 H 18 117/53 L 100 01/03/20 19:07 98 F 89 18 113/54 L 100 Body Mass Index 15.0 Constitutional : Alert, oriented, not in distress Neck : Normal inspection, Supple Cardiovascular : RRR, S1 S2, no lower extremity edema Respiratory : Good bilateral air entry, no crackles, wheezes or rhonchi Gastrointestinal: soft, lax, Normal bowel sounds, Mild tenderness in lower abdomen with deep palpation Skin : Warm/Dry, No rash Neurological : Alert & oriented x3, No focal deficit Objective Data Current Medications Generic Name Dose Route Start Last Admin Trade Name Sloanq PRN Reason Stop Dose Admin Calcium Carbonate/Cholecalciferol 250 mg 01/03/20 09:00 01/04/20 09:07 Calcium + Vitamin D 250 Mg Tablet PO 250 mg BID АЛЕКСАНДР Administration Diphenoxylate HCl/Atropine 1 tab 01/03/20 21:00 01/04/20 09:07 Diphenoxylate/Atrop 2.5/0.025 1 Tab Tablet PO 1 tab BID АЛЕКСАНДР Administration Heparin Sodium (Porcine) 5,000 unit 01/02/20 23:25 01/04/20 15:32 Heparin Sodium,Porcine 5,000 Unit/Ml Vial SUBCUT 5,000 unit Q8H АЛЕКСАНДР Administration Piperacillin Sod/Tazobactam 50 mls @ 100 mls/hr 01/03/20 02:00 01/04/20 15:32 Sod 3.375 gm/ Sodium Chloride IV Infused Q6H АЛЕКСАНДР Infusion Losartan Potassium 25 mg 01/03/20 09:00 01/04/20 09:08 Losartan Potassium 25 Mg Tablet PO 25 mg DAILY АЛЕКСАНДР Administration Protocol Mesalamine 1,600 mg 01/03/20 09:00 01/04/20 09:07 Mesalamine 400 Mg Cap.Drtab. PO 1,600 mg BID АЛЕКСАНДР Administration Omeprazole 20 mg 01/03/20 06:30 01/04/20 05:17 Omeprazole 20 Mg Capsule.Dr PO 20 mg DAILY@0630 АЛЕКСАНДР Administration Pharmacy Consult 1 each 01/02/20 21:01 Consult Rx Perform Med Rec MISCELLANE ONCE PRN Consult order Potassium Chloride 20 meq 01/03/20 09:00 01/04/20 09:07 Potassium Chloride Er 20 Meq Tab.Er.Prt PO 20 meq BID АЛЕКСАНДР Administration Pravastatin Sodium 20 mg 01/03/20 21:00 01/03/20 20:16 Pravastatin Sodium 20 Mg Tablet PO 20 mg BEDTIME АЛЕКСАНДР Administration Sodium Chloride 3 ml 01/03/20 00:00 01/04/20 15:33 0.9 % Sodium Chloride Flush 3 Ml Syringe IVFLUSH 3 ml QSHIFT АЛЕКСАНДР Administration Vitamin D 25 mcg 01/03/20 09:00 01/04/20 09:08 Cholecalciferol (Vitamin D3) 25 Mcg Tablet PO 25 mcg DAILY АЛЕКСАНДР Administration Labs CBC & Chem 7: 01/04/20 05:47 01/04/20 05:47 Microbiology Microbiology Results: Microbiology 01/02/20 21:06 Blood - Venous Blood Culture - Preliminary No growth after 24 hours. 01/02/20 21:02 Blood - Venous Blood Culture - Preliminary No growth after 24 hours. 01/02/20 17:35 Urine clean catch - Clean Catch Midstream Urine Culture - Final Assessment and Plan (1) Sepsis: Status: Acute (2) Colitis: Status: Acute (3) Hyperlipidemia: Status: Acute (4) HTN (hypertension): Status: Acute (5) Metabolic acidosis: Status: Acute (6) UTI (urinary tract infection): Status: Acute (7) Dehydration: Status: Acute Assessment and Plan: 79/F with history of Invasive ductal carcinoma grade 3 diagnosed approximately 15 years ago status post right breast lumpectomy and radiation therapy, chronic anemia d/t MDS, HTN, HLD, GERD, Microscopic colitis followed by Dr. Amaya, h/o T2 DM no longer on meds, chronic diarrhea who presented with sob and diarrhea, and CT of abdomen shows ascending colitis and CXR is questionable for PNA and there is UTI Sepsis related to colitis UTI and likely PNA. clinically improving. WBC down Continue Zosyn GI input appreciated, continue current management, used a anti diarrhea Chronic diarrhea, use Imodium as needed ID consult pending Acute on chronic anemia Hb dropped to 7.3 this mornig could be 2/2 IVF no clear source of bleeding Hold heparin Check occult stool type and cross repeat CBC Severe Non gap metabolic acidosis related to diarrhea. Improving, bicarb of 12 this morning On bicab replacemtn Nephrology consultation appreciated Hypocalcemia Calcium of 6 Corrected calcium 7.6 To give IV calcium gluconate Monitor BMP SHELLI d/t dehydration, diarrhea improving restart Losartan HLD Pravastatin GERD Omeprazole DVT Hold heparin SCDs
[2020-01-04 17:27] LABS: Anion Gap 14 (12-20); Blood Urea Nitrogen 20 mg/dL (9-16); Calcium 6.6 mg/dL (8.4-10.2); Carbon Dioxide 12 mmol/L (22-29); Chloride 117 mmol/L (96-108); Creatinine Clr Calc Pharmacy 19.6; Estimated Glomerular Filt Rate 38; Glucose Random 183 mg/dL (60-115); Potassium 3.6 mmol/l (3.3-5.1); Sodium 139 mmol/L (135-145)
[2020-01-04] MEDS: Sodium Bicarbonate 8.4% 100 MEQ in Dextrose 5 % 900 ML IV (18:15)
[2020-01-04] MEDS: Pravastatin Sodium 20 MG TABLET PO (20:58)
--- NOTE | 2020-01-04 21:47 | P.PNNP_ITS ---
Subjective Subjective Interval history: the patient was seen and evaluated this morning Laying in bed, feels comfortable reports 2 episodes of diarrhea a day Denies any fever, chills or shortness of breath No reported other overnight events. Physical Exam Vital Signs: Vital Signs: Vital Signs Temp Pulse Resp BP Pulse Ox 01/04/20 19:24 97.2 F 86 16 104/48 L 98 01/04/20 16:00 98.0 F 84 18 108/53 L 98 01/04/20 11:34 98.4 F 94 18 117/61 97 01/04/20 09:08 85 106/55 L 01/04/20 07:39 97.6 F 85 18 106/55 L 99 01/04/20 03:14 98.7 F 88 18 111/52 L 100 01/03/20 23:28 97.9 F 104 H 18 117/53 L 100 Body Mass Index 15.0 Const: General: cooperative and alert Orientation/consciousness: oriented to place and oriented to time HENMT: Head: Yes normal to inspection Mouth: Normal oral and palatal mucosa present Eyes: General: appearance normal, both eyes and all related structures Neck: Neck: Yes normal visual inspection Resp: Effort & Inspection: normal respiratory effort Auscultation: diminished lung sounds Cardio: Jugular venous distension: no JVD Heart sounds: S1 normal heart sound present and S2 normal heart sound present GI: Inspection: Yes normal to inspection Auscultation: normal bowel sounds Neuro: General: oriented to place and oriented to time Assessment & Plan Assessment and plan (1) Dehydration: Problem details: Resolving Status: Acute (2) Metabolic acidosis: Problem details: Continue IV fluids with Bicarb - Can lower rate if Bicarb > 15 . D/c once Bicarb is > 24 Status: Acute (3) Colitis: Status: Acute Time Spent With Patient Time: Total time spent is greater than 50% in coordination of care (as yanelis taylor) at patient's floor/unit and/or counseling patient:
[2020-01-05] VITALS (11 sets, daily range): BP systolic 101–129; BP diastolic 47–69; PULSE 76–98; RESP 16–24; TEMP 36.6–38.2; O2SAT 92–98
[2020-01-05] MEDS: Piperacillin Sodium/Tazobactam 3.375 GM in 0.9 % Sodium Chloride 50 ML IV ×4 (01:33→19:46)
[2020-01-05 07:12] LABS: Basophils Percent Auto 0.2 % (0-2); Hematocrit 24.6 % (37-47); Hemoglobin 7.6 g/dl (12.0-16.0); Imm Gran Abs Auto 0.03 X10*3/uL (0.00-0.03); Imm Gran Pct Auto 0.6 % (0.0-0.4); Lymphocytes Absolute Auto 0.3 X10*3/uL (1.2-4.9); Lymphocytes Percent Auto 5.4 % (20-40); MANUAL DIFF FLAG SCAN; Mean Corpuscular HGB Conc 30.9 g/dl (31.0-35.0); Mean Corpuscular Volume 84.2 fL (80-98); Mean Platelet Volume 10.5 fL (9.4-12.3); Monocytes Absolute Auto 0.3 X10*3/uL (0.1-1.2); Monocytes Percent Auto 5.4 % (2-11); Neutrophils Absolute Auto 4.2 X10*3/uL (2.0-8.3); Neutrophils Percent Auto 88.4 % (45-73); Platelet Count 167 X10*3/uL (160-400); Red Blood Count 2.92 X10*6/uL (4.20-5.50); Red Cell Distribution Width 19.6 % (11.0-16.0); SCAN SMEAR FLAG 1; White Blood Count 4.8 X10*3/uL (4.8-10.8)
[2020-01-05 08:09] LABS: Anion Gap 14 (12-20); Blood Urea Nitrogen 17 mg/dL (9-16); Calcium 6.3 mg/dL (8.4-10.2); Carbon Dioxide 15 mmol/L (22-29); Chloride 114 mmol/L (96-108); Creatinine Clr Calc Pharmacy 21.2; Estimated Glomerular Filt Rate 41; Glucose Random 170 mg/dL (60-115); Potassium 3.4 mmol/l (3.3-5.1); Sodium 140 mmol/L (135-145)
[2020-01-05 08:12] LABS: SLIDE REVIEW VERIFIED
[2020-01-05] MEDS: 0.9 % Sodium Chloride Flush 3 ML SYRINGE IVFLUSH ×3 (08:33→23:48)
[2020-01-05] MEDS: Cholecalciferol (Vitamin D3) 25 MCG TABLET PO (08:35)
[2020-01-05] MEDS: Potassium Chloride ER 20 MEQ TAB.ER.PRT PO ×2 (08:35→19:54)
[2020-01-05] MEDS: Calcium + Vitamin D 250 MG TABLET PO ×2 (08:36→19:55)
[2020-01-05] MEDS: Omeprazole 20 MG CAPSULE.DR PO (08:36)
[2020-01-05] MEDS: Mesalamine 400 MG CAP.DRTAB. 1600 MG PO ×2 (09:16→19:52)
[2020-01-05] MEDS: Sodium Bicarbonate 8.4% 100 MEQ in Dextrose 5 % 900 ML 125 MEQ IV ×3 (11:03→23:48)
--- NOTE | 2020-01-05 12:07 | HO.PM.IMPN ---
Subjective Subjective Date of Service: 01/05/20 Interval History: the patient was seen and evaluated this morning Laying in bed, feels comfortable reports multiple epsiodes of diarrhea a day Hemoglobin dropped, reports blood with stool Denies any fever, chills or shortness of breath No reported other overnight events. Physical Exam Vital Signs: Vital Signs: Vital Signs Temp Pulse Resp BP Pulse Ox 01/05/20 09:02 99.3 F 93 24 H 104/53 L 96 01/05/20 05:29 99.8 F 01/05/20 04:00 100.7 F H 91 16 109/48 L 94 01/04/20 23:36 97.2 F 84 16 109/46 L 98 01/04/20 19:24 97.2 F 86 16 104/48 L 98 01/04/20 16:00 98.0 F 84 18 108/53 L 98 Body Mass Index 15.0 Constitutional : Alert, oriented, not in distress Neck : Normal inspection, Supple Cardiovascular : RRR, S1 S2, no lower extremity edema Respiratory : Good bilateral air entry, no crackles, wheezes or rhonchi Gastrointestinal: soft, lax, Normal bowel sounds, Mild tenderness in lower abdomen with deep palpation Skin : Warm/Dry, No rash Neurological : Alert & oriented x3, No focal deficit Objective Data Current Medications Generic Name Dose Route Start Last Admin Trade Name Sloanq PRN Reason Stop Dose Admin Calcium Carbonate/Cholecalciferol 250 mg 01/03/20 09:00 01/05/20 08:36 Calcium + Vitamin D 250 Mg Tablet PO 250 mg BID АЛЕКСАНДР Administration Diphenoxylate HCl/Atropine 1 tab 01/03/20 21:00 01/05/20 08:36 Diphenoxylate/Atrop 2.5/0.025 1 Tab Tablet PO 1 tab BID АЛЕКСАНДР Administration Piperacillin Sod/Tazobactam 50 mls @ 100 mls/hr 01/03/20 02:00 01/05/20 09:18 Sod 3.375 gm/ Sodium Chloride IV Infused Q6H АЛЕКСАНДР Infusion Sodium Bicarbonate 100 meq/ 1,000 mls @ 125 mls/hr 01/05/20 09:00 01/05/20 11:03 Dextrose IV 01/06/20 09:00 125 mls/hr .Q8H АЛЕКСАНДР Administration Losartan Potassium 25 mg 01/03/20 09:00 01/05/20 08:40 Losartan Potassium 25 Mg Tablet PO Not Given DAILY [facility] Protocol Mesalamine 1,600 mg 01/03/20 09:00 01/05/20 09:16 Mesalamine 400 Mg Cap.Drtab. PO 1,600 mg BID АЛЕКСАНДР Administration Omeprazole 20 mg 01/03/20 06:30 01/05/20 08:36 Omeprazole 20 Mg Capsule. PO 20 mg DAILY@0630 [facility] Administration Pharmacy Consult 1 each 01/02/20 21:01 Consult Rx Perform Med Rec MISCELLANE ONCE PRN Consult order Potassium Chloride 20 meq 01/03/20 09:00 01/05/20 08:35 Potassium Chloride Er 20 Meq Tab.Er.Prt PO 20 meq BID АЛЕКСАНДР Administration Pravastatin Sodium 20 mg 01/03/20 21:00 01/04/20 20:58 Pravastatin Sodium 20 Mg Tablet PO 20 mg BEDTIME АЛЕКСАНДР Administration Sodium Chloride 3 ml 01/03/20 00:00 01/05/20 08:33 0.9 % Sodium Chloride Flush 3 Ml Syringe IVFLUSH 3 ml QSHIFT АЛЕКСАНДР Administration Vitamin D 25 mcg 01/03/20 09:00 01/05/20 08:35 Cholecalciferol (Vitamin D3) 25 Mcg Tablet PO 25 mcg DAILY АЛЕКСАНДР Administration Labs CBC & Chem 7: 01/05/20 05:59 01/05/20 05:59 Microbiology Microbiology Results: Microbiology 01/02/20 21:06 Blood - Venous Blood Culture - Preliminary No growth after 48 hours. 01/02/20 21:02 Blood - Venous Blood Culture - Preliminary No growth after 48 hours. 01/02/20 17:35 Urine clean catch - Clean Catch Midstream Urine Culture - Final Assessment and Plan (1) Sepsis: Status: Acute (2) Colitis: Status: Acute (3) Hyperlipidemia: Status: Acute (4) HTN (hypertension): Status: Acute (5) Metabolic acidosis: Status: Acute (6) UTI (urinary tract infection): Status: Acute (7) Dehydration: Problem details: Resolving Status: Acute Assessment and Plan: 79/F with history of Invasive ductal carcinoma grade 3 diagnosed approximately 15 years ago status post right breast lumpectomy and radiation therapy, chronic anemia d/t MDS, HTN, HLD, GERD, Microscopic colitis followed by Dr. Amaya, h/o T2 DM no longer on meds, chronic diarrhea who presented with sob and diarrhea, and CT of abdomen shows ascending colitis and CXR is questionable for PNA and UTI Sepsis related to UTI and PNA. clinically improving. WBC down Negative blood cultures Continue Zosyn D3 GI input appreciated, continue current management, use a anti diarrhea ID consult pending Chronic diarrhea ATC Diphenoxylate/Atropin. use Imodium as needed Acute on chronic anemia Lower GI bleed Hb dropped to 7.6 this mornig could be 2/2 IVF, hemorroids, colitis? Hold heparin Check occult stool To give a unit of blood repeat CBC Severe Non gap metabolic acidosis related to diarrhea. Improving, bicarb of 15 this morning On bicab replacemtn, to stop when >22 Nephrology consultation appreciated Hypocalcemia Calcium of 6.3 Corrected calcium 7.8 recieved IV calcium gluconate Monitor BMP HLD Pravastatin GERD Omeprazole DVT Hold heparin SCDs
[2020-01-05] MEDS: Acetaminophen 325 MG TABLET 650 MG PO ×2 (12:21→23:53)
[2020-01-05] MEDS: Benzonatate 100 MG CAPSULE PO ×2 (14:36→19:54)
[2020-01-05 16:31] LABS: Glucose, Whole Blood 193 mg/dL (60-115)
[2020-01-05] MEDS: Pravastatin Sodium 20 MG TABLET PO (19:54)
--- NOTE | 2020-01-05 22:05 | P.PNNP_ITS ---
Subjective Subjective Interval history: the patient was seen and evaluated this morning Laying in bed, feels comfortable Loose stools + Denies any fever, chills or shortness of breath No reported other overnight events. Physical Exam Vital Signs: Vital Signs: Vital Signs Temp Pulse Resp BP Pulse Ox 01/05/20 19:27 98.5 F 89 16 129/69 97 01/05/20 16:39 97.8 F 76 16 109/54 L 95 01/05/20 15:41 97.8 F 76 16 109/54 L 01/05/20 13:20 98.4 F 01/05/20 12:49 98.4 F 81 16 101/47 L 01/05/20 12:26 99.3 F 86 16 102/51 L 01/05/20 12:00 98.4 F 81 16 101/47 L 98 01/05/20 09:02 99.3 F 93 24 H 104/53 L 96 01/05/20 05:29 99.8 F 01/05/20 04:00 100.7 F H 91 16 109/48 L 94 01/04/20 23:36 97.2 F 84 16 109/46 L 98 Body Mass Index 15.0 Const: General: cooperative Orientation/consciousness: oriented to person Eyes: Pupils: Equal, round and reactive pupils present Chest: Chest palpation & inspection: normal inspection of the chest Resp: Effort & Inspection: decreased respiratory effort Cardio: Jugular venous distension: no JVD Heart sounds: S1 normal heart sound present and S2 normal heart sound present GI: Inspection: Yes distended Auscultation: normal bowel sounds Neuro: General: oriented to person Cranial nerves: Yes Equal, round and reactive pupils present Assessment & Plan Assessment and plan (1) Metabolic acidosis: Problem details: IVF with Bicarb to continue Agree with 125 ml/ hr K replacement Renal Func is better Status: Acute (2) Hypovolemia: Status: Acute (3) HTN (hypertension): Problem details: BP meds as ordered Status: Acute (4) Dehydration: Problem details: Resolving Status: Acute Time Spent With Patient Time: Total time spent is greater than 50% in coordination of care (as do cumented) at patient's floor/unit and/or counseling patient:
[2020-01-06] VITALS (9 sets, daily range): BP systolic 97–119; BP diastolic 50–64; PULSE 81–88; RESP 16–19; TEMP 36.1–36.6; O2SAT 91–99
[2020-01-06] MEDS: Piperacillin Sodium/Tazobactam 3.375 GM in 0.9 % Sodium Chloride 50 ML IV ×4 (01:28→19:52)
[2020-01-06] MEDS: Omeprazole 20 MG CAPSULE.DR PO (05:59)
[2020-01-06 06:11] LABS: Basophils Percent Auto 0.2 % (0-2); Hematocrit 26.3 % (37-47); Hemoglobin 8.7 g/dl (12.0-16.0); Imm Gran Abs Auto 0.03 X10*3/uL (0.00-0.03); Imm Gran Pct Auto 0.6 % (0.0-0.4); Lymphocytes Absolute Auto 0.4 X10*3/uL (1.2-4.9); Lymphocytes Percent Auto 8.4 % (20-40); MANUAL DIFF FLAG SCAN; Mean Corpuscular HGB Conc 33.1 g/dl (31.0-35.0); Mean Corpuscular Hemoglobin 27.4 pg (27.0-33.0); Mean Platelet Volume 10.9 fL (9.4-12.3); Monocytes Absolute Auto 0.3 X10*3/uL (0.1-1.2); Monocytes Percent Auto 5.4 % (2-11); Neutrophils Absolute Auto 3.9 X10*3/uL (2.0-8.3); Neutrophils Percent Auto 85.4 % (45-73); Platelet Count 140 X10*3/uL (160-400); Red Blood Count 3.17 X10*6/uL (4.20-5.50); Red Cell Distribution Width 18.1 % (11.0-16.0); SCAN SMEAR FLAG 1; White Blood Count 4.6 X10*3/uL (4.8-10.8)
[2020-01-06 06:59] LABS: SLIDE REVIEW VERIFIED
[2020-01-06 07:42] LABS: Anion Gap 13 (12-20); Blood Urea Nitrogen 15 mg/dL (9-16); Calcium 5.9 mg/dL (8.4-10.2); Carbon Dioxide 19 mmol/L (22-29); Chloride 108 mmol/L (96-108); Creatinine Clr Calc Pharmacy 24.1; Estimated Glomerular Filt Rate 48; Glucose Random 275 mg/dL (60-115); Potassium 3.2 mmol/l (3.3-5.1); Sodium 137 mmol/L (135-145)
[2020-01-06 08:39] LABS: Alanine Aminotransferase 9 U/L (0-31); Albumin Level 1.9 g/dL (3.5-5.0); Alkaline Phosphatase 73 U/L (39-117); Aspartate Amino Transferase 12 U/L (5-31); Bilirubin Direct 0.3 mg/dL (0.0-0.5); Bilirubin Total 0.5 mg/dL (0.0-1.0); Total Protein 4.1 g/dL (6.5-8.0)
[2020-01-06] MEDS: Sodium Bicarbonate 8.4% 100 MEQ in Dextrose 5 % 900 ML 125 MEQ IV (08:48)
[2020-01-06] MEDS: Mesalamine 400 MG CAP.DRTAB. 1600 MG PO ×2 (08:50→19:54)
[2020-01-06] MEDS: Losartan Potassium 25 MG TABLET PO (08:50)
[2020-01-06] MEDS: Calcium + Vitamin D 250 MG TABLET PO ×2 (08:50→19:56)
[2020-01-06] MEDS: Benzonatate 100 MG CAPSULE PO ×3 (08:50→19:56)
[2020-01-06] MEDS: Cholecalciferol (Vitamin D3) 25 MCG TABLET PO (08:50)
[2020-01-06] MEDS: 0.9 % Sodium Chloride Flush 3 ML SYRINGE IVFLUSH ×3 (08:51→19:56)
[2020-01-06] MEDS: Potassium Chloride ER 20 MEQ TAB.ER.PRT PO ×2 (08:51→19:55)
[2020-01-06] MEDS: Calcium Gluconate/NaCl,Iso-Osm 2 GM/100 ML PLAST..BAG IV (08:53)
--- NOTE | 2020-01-06 09:10 | MHC.CM.PN ---
dc plan is home no svcs. cm to cont. to follow.
--- NOTE | 2020-01-06 11:06 | PM.PNNEP ---
Subjective Subjective Interval history: Still with diarrhea Feeling better No abdo pain Physical Exam Vital Signs: Vital Signs: Vital Signs Temp Pulse Resp BP Pulse Ox 01/06/20 08:50 81 98/52 L 01/06/20 08:00 97.0 F 81 18 98/52 L 95 01/06/20 03:26 96.9 F 87 19 107/64 96 01/06/20 01:51 97.1 F 01/06/20 01:32 97.1 F 01/05/20 23:29 100.8 F H 98 19 104/52 L 92 01/05/20 19:27 98.5 F 89 16 129/69 97 01/05/20 16:39 97.8 F 76 16 109/54 L 95 01/05/20 15:41 97.8 F 76 16 109/54 L 01/05/20 13:20 98.4 F 01/05/20 12:49 98.4 F 81 16 101/47 L 01/05/20 12:26 99.3 F 86 16 102/51 L 01/05/20 12:00 98.4 F 81 16 101/47 L 98 Body Mass Index 15.0 Const: General: cooperative and awake Orientation/consciousness: patient oriented x3 Neck: Neck: Yes supple Chest: Chest palpation & inspection: normal inspection of the chest Resp: Auscultation: clear to auscultation bilaterally Cardio: Palpation: no palpable S3 Heart sounds: no rubs GI: Inspection: Yes normal to inspection Palpation (GI): Soft to palpation Skin: General skin exam: no rashes or lesions noted Neuro: General: patient oriented x3 Assessment & Plan Assessment and plan (1) Dehydration: Problem details: Resolving Status: Acute (2) HTN (hypertension): Status: Acute (3) Metabolic acidosis: Status: Acute (4) Hypocalcemia: Status: Acute Assessment and Plan: Check iPTH Can increase Ca/Vit D to TID
[2020-01-06] MEDS: Sodium Bicarbonate 650 MG TABLET PO ×3 (13:20→19:55)
--- NOTE | 2020-01-06 14:00 | MHC.CLN ---
F/U PO INTAKE 50% AVG DIET RX: CHOPPED-MACHINE LEARNING INTERN RECOMMENDED CHOPPED 01/05 WILL RE-START 1200 DM DIET AND GLUCERNA BID TO INCREASE KCALS FOLLOWING
--- NOTE | 2020-01-06 14:42 | HO.PM.IMPN ---
Subjective Subjective Interval History: the patient was seen and evaluated this morning Laying in bed, feels comfortable Diarrhea has improved over the last night Hemoglobin improved after 1 unit transfusion Denies any fever, chills or shortness of breath No reported other overnight events. Physical Exam Vital Signs: Vital Signs: Vital Signs Temp Pulse Resp BP Pulse Ox 01/06/20 11:42 97.9 F 84 18 98/50 L 94 01/06/20 08:50 81 98/52 L 01/06/20 08:00 97.0 F 81 18 98/52 L 95 01/06/20 03:26 96.9 F 87 19 107/64 96 01/06/20 01:51 97.1 F 01/06/20 01:32 97.1 F 01/05/20 23:29 100.8 F H 98 19 104/52 L 92 01/05/20 19:27 98.5 F 89 16 129/69 97 01/05/20 16:39 97.8 F 76 16 109/54 L 95 01/05/20 15:41 97.8 F 76 16 109/54 L Body Mass Index 15.0 Constitutional : Alert, oriented, not in distress Neck : Normal inspection, Supple Cardiovascular : RRR, S1 S2, no lower extremity edema Respiratory : Good bilateral air entry, no crackles, wheezes or rhonchi Gastrointestinal: soft, lax, Normal bowel sounds, Mild tenderness in lower abdomen with deep palpation Skin : Warm/Dry, No rash Neurological : Alert & oriented x3, No focal deficit Objective Data Current Medications Generic Name Dose Route Start Last Admin Trade Name Freq PRN Reason Stop Dose Admin Acetaminophen 650 mg 01/05/20 12:16 01/05/20 23:53 Acetaminophen 325 Mg Tablet PO 650 mg Q6H PRN Administration Pain and Fever Benzonatate 100 mg 01/05/20 15:00 01/06/20 13:20 Benzonatate 100 Mg Capsule PO 100 mg TID АЛЕКСАНДР Administration Calcium Carbonate/Cholecalciferol 250 mg 01/03/20 09:00 01/06/20 08:50 Calcium + Vitamin D 250 Mg Tablet PO 250 mg BID АЛЕКСАНДР Administration Diphenoxylate HCl/Atropine 1 tab 01/03/20 21:00 01/06/20 08:51 Diphenoxylate/Atrop 2.5/0.025 1 Tab Tablet PO 1 tab BID АЛЕКСАНДР Administration Piperacillin Sod/Tazobactam 50 mls @ 100 mls/hr 01/03/20 02:00 01/06/20 14:17 Sod 3.375 gm/ Sodium Chloride IV Infused Q6H АЛЕКСАНДР Infusion Loperamide HCl 2 mg 01/05/20 12:19 Loperamide Hcl 2 Mg/15 Ml Liquid PO 8XD PRN Diarrhea Losartan Potassium 25 mg 01/03/20 09:00 01/06/20 08:50 Losartan Potassium 25 Mg Tablet PO 25 mg DAILY АЛЕКСАНДР Administration Protocol Mesalamine 1,600 mg 01/03/20 09:00 01/06/20 08:50 Mesalamine 400 Mg Cap.Drtab. PO 1,600 mg BID АЛЕКСАНДР Administration Omeprazole 20 mg 01/03/20 06:30 01/06/20 05:59 Omeprazole 20 Mg Capsule.Dr PO 20 mg DAILY@0630 [facility] Administration Pharmacy Consult 1 each 01/02/20 21:01 Consult Rx Perform Med Rec MISCELLANE ONCE PRN Consult order Potassium Chloride 20 meq 01/03/20 09:00 01/06/20 08:51 Potassium Chloride Er 20 Meq Tab.Er.Prt PO 20 meq BID [facility] Administration Pravastatin Sodium 20 mg 01/03/20 21:00 01/05/20 19:54 Pravastatin Sodium 20 Mg Tablet PO 20 mg BEDTIME АЛЕКСАНДР Administration Sodium Bicarbonate 650 mg 01/06/20 09:00 01/06/20 13:24 Sodium Bicarbonate 650 Mg Tablet PO Not Given QID [facility] Sodium Chloride 3 ml 01/03/20 00:00 01/06/20 08:51 0.9 % Sodium Chloride Flush 3 Ml Syringe IVFLUSH 3 ml QSHIFT [facility] Administration Vitamin D 25 mcg 01/03/20 09:00 01/06/20 08:50 Cholecalciferol (Vitamin D3) 25 Mcg Tablet PO 25 mcg DAILY [facility] Administration Labs CBC & Chem 7: 01/06/20 05:20 01/06/20 05:20 Microbiology Microbiology Results: Microbiology 01/02/20 21:06 Blood - Venous Blood Culture - Preliminary No growth after 48 hours. 01/02/20 21:02 Blood - Venous Blood Culture - Preliminary No growth after 48 hours. 01/02/20 17:35 Urine clean catch - Clean Catch Midstream Urine Culture - Final Assessment and Plan (1) Sepsis: Status: Acute (2) Colitis: Status: Acute (3) Hyperlipidemia: Status: Acute (4) HTN (hypertension): Status: Acute (5) Metabolic acidosis: Status: Acute (6) UTI (urinary tract infection): Status: Acute (7) Dehydration: Problem details: Resolving Status: Acute Assessment and Plan: 79/F with history of Invasive ductal carcinoma grade 3 diagnosed approximately 15 years ago status post right breast lumpectomy and radiation therapy, chronic anemia d/t MDS, HTN, HLD, GERD, Microscopic colitis followed by Dr. Amaya, h/o T2 DM no longer on meds, chronic diarrhea who presented with sob and diarrhea, and CT of abdomen shows ascending colitis and CXR is questionable for PNA and UTI Sepsis related to PNA. improving Could be related to aspiration given difficulty swallowing Negative blood cultures Decide on her legs Continue Zosyn D4 GI input appreciated, continue current management, use a anti diarrhea ID consult pending Chronic diarrhea ATC Diphenoxylate/Atropin. use Imodium as needed Hypokalemia Received replacement Monitor BMP Acute on chronic anemia Lower GI bleed, likely hemorrhoids with reported fresh blood with stool, resolved Hb Improved to 8.4 after 1 unit transfusion Hold heparin received a unit of blood repeat CBC Severe Non gap metabolic acidosis related to diarrhea. Improving, bicarb of 19 this morning to give oral sodium bicarb Nephrology consultation appreciated Hypocalcemia Calcium of 5.9 Corrected calcium 7.6 recieved IV calcium gluconate To start PO CACO3 Monitor BMP Swallowing problem TEXTILE ENGINEER evaluated the patient, modified diet ordered HLD Pravastatin GERD Omeprazole DVT Hold heparin SCDs
[2020-01-06] MEDS: Pravastatin Sodium 20 MG TABLET PO (19:56)
[2020-01-07] MEDS: Piperacillin Sodium/Tazobactam 3.375 GM in 0.9 % Sodium Chloride 50 ML IV ×4 (02:13→20:21)
[2020-01-07 04:00] VITALS: BP 105/55; PULSE 79; RESP 18; TEMP 36.6; O2SAT 91
[2020-01-07] MEDS: Omeprazole 20 MG CAPSULE.DR PO (06:11)
[2020-01-07 07:11] LABS: Basophils Percent Auto 0.2 % (0-2); Hemoglobin 8.8 g/dl (12.0-16.0); Imm Gran Abs Auto 0.03 X10*3/uL (0.00-0.03); Imm Gran Pct Auto 0.6 % (0.0-0.4); Lymphocytes Absolute Auto 0.5 X10*3/uL (1.2-4.9); Lymphocytes Percent Auto 9.3 % (20-40); MANUAL DIFF FLAG SCAN; Mean Corpuscular HGB Conc 31.4 g/dl (31.0-35.0); Mean Corpuscular Hemoglobin 26.2 pg (27.0-33.0); Mean Corpuscular Volume 83.3 fL (80-98); Mean Platelet Volume 11.2 fL (9.4-12.3); Monocytes Absolute Auto 0.3 X10*3/uL (0.1-1.2); Monocytes Percent Auto 6.2 % (2-11); Neutrophils Absolute Auto 4.3 X10*3/uL (2.0-8.3); Neutrophils Percent Auto 83.7 % (45-73); Red Blood Count 3.36 X10*6/uL (4.20-5.50); SCAN SMEAR FLAG 1; White Blood Count 5.2 X10*3/uL (4.8-10.8)
[2020-01-07 07:19] LABS: Anion Gap 13 (12-20); Blood Urea Nitrogen 13 mg/dL (9-16); Calcium 6.3 mg/dL (8.4-10.2); Carbon Dioxide 22 mmol/L (22-29); Chloride 110 mmol/L (96-108); Creatinine Clr Calc Pharmacy 23.6; Estimated Glomerular Filt Rate 47; Glucose Random 131 mg/dL (60-115); Potassium 3.6 mmol/l (3.3-5.1); Sodium 141 mmol/L (135-145)
[2020-01-07 08:00] VITALS: BP 115/63; PULSE 90; RESP 18; TEMP 37.1; O2SAT 95
[2020-01-07 08:57] LABS: Platelet Count 166 X10*3/uL (160-400); SLIDE REVIEW VERIFIED
[2020-01-07] MEDS: Mesalamine 400 MG CAP.DRTAB. 1600 MG PO ×2 (10:06→20:24)
[2020-01-07 10:07] VITALS: BP 115/63; PULSE 90
[2020-01-07] MEDS: Cholecalciferol (Vitamin D3) 25 MCG TABLET PO (10:07)
[2020-01-07] MEDS: Potassium Chloride ER 20 MEQ TAB.ER.PRT PO ×2 (10:07→20:25)
[2020-01-07] MEDS: Calcium + Vitamin D 250 MG TABLET PO ×2 (10:07→20:32)
[2020-01-07] MEDS: Losartan Potassium 25 MG TABLET PO (10:07)
[2020-01-07] MEDS: Benzonatate 100 MG CAPSULE PO ×3 (10:07→20:24)
[2020-01-07] MEDS: Sodium Bicarbonate 650 MG TABLET PO ×4 (10:07→20:25)
[2020-01-07] MEDS: 0.9 % Sodium Chloride Flush 3 ML SYRINGE IVFLUSH ×3 (10:14→20:24)
--- NOTE | 2020-01-07 11:05 | PM.PNNEP ---
Subjective Subjective Interval history: Events noted Physical Exam Vital Signs: Vital Signs: Vital Signs Temp Pulse Resp BP Pulse Ox 01/07/20 10:07 90 115/63 01/07/20 08:00 98.7 F 90 18 115/63 95 01/07/20 04:00 98 F 79 18 105/55 L 91 L 01/06/20 23:36 97 F 81 18 97/62 94 01/06/20 19:13 97.3 F 88 16 119/64 94 01/06/20 16:00 97.3 F 83 16 97/52 L 91 L 01/06/20 11:42 97.9 F 84 18 98/50 L 94 Body Mass Index 15.0 Const: General: cooperative and awake Orientation/consciousness: patient oriented x3 Neck: Neck: Yes supple Chest: Chest palpation & inspection: normal inspection of the chest Resp: Auscultation: clear to auscultation bilaterally Cardio: Palpation: no palpable S3 Heart sounds: no rubs GI: Inspection: Yes normal to inspection Palpation (GI): Soft to palpation Skin: General skin exam: no rashes or lesions noted Neuro: General: patient oriented x3 Assessment & Plan Assessment and plan (1) Dehydration: Problem details: Resolving Status: Acute (2) HTN (hypertension): Status: Acute (3) Metabolic acidosis: Problem details: Improved Status: Acute (4) Hypocalcemia: Status: Acute Assessment and Plan: iPTH pending Can increase Ca/Vit D to TID
[2020-01-07 11:53] VITALS: BP 118/59; PULSE 97; RESP 18; TEMP 36.1; O2SAT 100
--- NOTE | 2020-01-07 14:36 | HO.PM.IMPN ---
Subjective Subjective Date of Service: 01/07/20 Interval History: improved Cardiovascular Cardiovascular: Reports no additional cardiovascular complaints Respiratory Respiratory: Reports no additional respiratory complaints Physical Exam Vital Signs: Vital Signs: Vital Signs Temp Pulse Resp BP Pulse Ox 01/07/20 11:53 97.0 F 97 18 118/59 L 100 01/07/20 10:07 90 115/63 01/07/20 08:00 98.7 F 90 18 115/63 95 01/07/20 04:00 98 F 79 18 105/55 L 91 L 01/06/20 23:36 97 F 81 18 97/62 94 01/06/20 19:13 97.3 F 88 16 119/64 94 01/06/20 16:00 97.3 F 83 16 97/52 L 91 L Body Mass Index 15.0 General: AO X 3, no acute distress Resp: CTA bilateral CVS: S1,S2,RRR GI: soft, non tender, non distended Neuro: motor grossly intact Psych: appropriate affect Objective Data Current Medications Generic Name Dose Route Start Last Admin Trade Name Sloanq PRN Reason Stop Dose Admin Acetaminophen 650 mg 01/05/20 12:16 01/05/20 23:53 Acetaminophen 325 Mg Tablet PO 650 mg Q6H PRN Administration Pain and Fever Benzonatate 100 mg 01/05/20 15:00 01/07/20 14:21 Benzonatate 100 Mg Capsule PO 100 mg TID АЛЕКСАНДР Administration Calcium Carbonate 500 mg 01/06/20 21:00 01/07/20 10:07 Calcium Carbonate 500 Mg Tablet PO 500 mg BID АЛЕКСАНДР Administration Calcium Carbonate/Cholecalciferol 250 mg 01/03/20 09:00 01/07/20 10:07 Calcium + Vitamin D 250 Mg Tablet PO 250 mg BID АЛЕКСАНДР Administration Diphenoxylate HCl/Atropine 1 tab 01/03/20 21:00 01/07/20 10:07 Diphenoxylate/Atrop 2.5/0.025 1 Tab Tablet PO 1 tab BID АЛЕКСАНДР Administration Piperacillin Sod/Tazobactam 50 mls @ 100 mls/hr 01/03/20 02:00 01/07/20 14:21 Sod 3.375 gm/ Sodium Chloride IV 100 mls/hr Q6H АЛЕКСАНДР Administration Loperamide HCl 2 mg 01/05/20 12:19 Loperamide Hcl 2 Mg/15 Ml Liquid PO 8XD PRN Diarrhea Losartan Potassium 25 mg 01/03/20 09:00 01/07/20 10:07 Losartan Potassium 25 Mg Tablet PO 25 mg DAILY АЛЕКСАНДР Administration Protocol Mesalamine 1,600 mg 01/03/20 09:00 01/07/20 10:06 Mesalamine 400 Mg Cap.Drtab. PO 1,600 mg BID АЛЕКСАНДР Administration Omeprazole 20 mg 01/03/20 06:30 01/07/20 06:11 Omeprazole 20 Mg Capsule.Dr PO 20 mg DAILY@0630 [facility] Administration Pharmacy Consult 1 each 01/02/20 21:01 Consult Rx Perform Med Rec MISCELLANE ONCE PRN Consult order Potassium Chloride 20 meq 01/03/20 09:00 01/07/20 10:07 Potassium Chloride Er 20 Meq Tab.Er.Prt PO 20 meq BID АЛЕКСАНДР Administration Pravastatin Sodium 20 mg 01/03/20 21:00 01/06/20 19:56 Pravastatin Sodium 20 Mg Tablet PO 20 mg BEDTIME АЛЕКСАНДР Administration Sodium Bicarbonate 650 mg 01/06/20 09:00 01/07/20 14:21 Sodium Bicarbonate 650 Mg Tablet PO 650 mg QID АЛЕКСАНДР Administration Sodium Chloride 3 ml 01/03/20 00:00 01/07/20 10:14 0.9 % Sodium Chloride Flush 3 Ml Syringe IVFLUSH 3 ml QSHIFT АЛЕКСАНДР Administration Vitamin D 25 mcg 01/03/20 09:00 01/07/20 10:07 Cholecalciferol (Vitamin D3) 25 Mcg Tablet PO 25 mcg DAILY АЛЕКСАНДР Administration Labs CBC & Chem 7: 01/07/20 05:24 01/07/20 05:23 Microbiology Microbiology Results: Microbiology 01/02/20 21:06 Blood - Venous Blood Culture - Preliminary No growth after 48 hours. 01/02/20 21:02 Blood - Venous Blood Culture - Preliminary No growth after 48 hours. 01/02/20 17:35 Urine clean catch - Clean Catch Midstream Urine Culture - Final Assessment and Plan (1) Sepsis: Status: Acute (2) Colitis: Status: Acute (3) Hyperlipidemia: Status: Acute (4) HTN (hypertension): Status: Acute (5) Metabolic acidosis: Problem details: Improved Status: Acute (6) UTI (urinary tract infection): Status: Acute (7) Dehydration: Problem details: Resolving Status: Acute Assessment and Plan: 79F presented with diarrhea Sepsis poa due to pna improving Continue Zosyn D5 GI input appreciated, continue current management, use a anti diarrhea Chronic diarrhea ATC Diphenoxylate/Atropin. use Imodium as needed Acute on chronic anemia Lower GI bleed, likely hemorrhoids with reported fresh blood with stool, resolved Hb Improved after 1 unit transfusion Hold heparin Severe Non gap metabolic acidosis related to diarrhea. Improving continue oral sodium bicarb Nephrology consultation appreciated Hypocalcemia Calcium of 5.9 Corrected calcium 7.6 recieved IV calcium gluconate PO CACO3 Monitor BMP Swallowing problem RETAIL ACCOUNT MANAGER evaluated the patient, modified diet ordered HLD Pravastatin GERD Omeprazole DVT Hold heparin SCDs
[2020-01-07 15:26] VITALS: BP 105/57; PULSE 83; RESP 16; TEMP 36.9; O2SAT 93
[2020-01-07 20:00] VITALS: BP 115/56; PULSE 89; RESP 18; TEMP 36.3; O2SAT 96
[2020-01-07] MEDS: Pravastatin Sodium 20 MG TABLET PO (20:25)
[2020-01-08] VITALS: BP 122/58; PULSE 90; RESP 17; TEMP 36.7; O2SAT 93
[2020-01-08] MEDS: Piperacillin Sodium/Tazobactam 3.375 GM in 0.9 % Sodium Chloride 50 ML IV ×2 (02:11→09:20)
[2020-01-08 03:45] VITALS: BP 120/63; PULSE 68; RESP 16; TEMP 36.8; O2SAT 93
[2020-01-08] MEDS: Omeprazole 20 MG CAPSULE.DR PO (05:54)
[2020-01-08 06:30] LABS: Basophils Percent Auto 0.7 % (0-2); Hematocrit 28.5 % (37-47); Hemoglobin 8.8 g/dl (12.0-16.0); Imm Gran Abs Auto 0.03 X10*3/uL (0.00-0.03); Imm Gran Pct Auto 0.7 % (0.0-0.4); Lymphocytes Absolute Auto 0.5 X10*3/uL (1.2-4.9); Lymphocytes Percent Auto 10.7 % (20-40); MANUAL DIFF FLAG SCAN; Mean Corpuscular HGB Conc 30.9 g/dl (31.0-35.0); Mean Corpuscular Hemoglobin 26.6 pg (27.0-33.0); Mean Corpuscular Volume 86.1 fL (80-98); Mean Platelet Volume 11.3 fL (9.4-12.3); Monocytes Absolute Auto 0.3 X10*3/uL (0.1-1.2); Monocytes Percent Auto 6.2 % (2-11); Neutrophils Absolute Auto 3.7 X10*3/uL (2.0-8.3); Neutrophils Percent Auto 81.7 % (45-73); Platelet Count 166 X10*3/uL (160-400); Red Blood Count 3.31 X10*6/uL (4.20-5.50); Red Cell Distribution Width 18.1 % (11.0-16.0); SCAN SMEAR FLAG 1; White Blood Count 4.5 X10*3/uL (4.8-10.8)
[2020-01-08 07:27] LABS: SLIDE REVIEW VERIFIED
[2020-01-08 07:28] VITALS: BP 116/62; PULSE 84; RESP 16; TEMP 36.8
[2020-01-08 07:39] LABS: Anion Gap 12 (12-20); Blood Urea Nitrogen 14 mg/dL (9-16); Calcium 6.3 mg/dL (8.4-10.2); Carbon Dioxide 21 mmol/L (22-29); Chloride 109 mmol/L (96-108); Creatinine Clr Calc Pharmacy 24.1; Estimated Glomerular Filt Rate 48; Glucose Fasting 183 mg/dL (60-99); Sodium 138 mmol/L (135-145)
[2020-01-08] MEDS: 0.9 % Sodium Chloride Flush 3 ML SYRINGE IVFLUSH (09:20)
[2020-01-08] MEDS: Mesalamine 400 MG CAP.DRTAB. 1600 MG PO (09:21)
[2020-01-08] MEDS: Benzonatate 100 MG CAPSULE PO (09:22)
[2020-01-08] MEDS: Potassium Chloride ER 20 MEQ TAB.ER.PRT PO (09:22)
[2020-01-08] MEDS: Losartan Potassium 25 MG TABLET PO (09:23)
[2020-01-08] MEDS: Cholecalciferol (Vitamin D3) 25 MCG TABLET PO (09:23)
[2020-01-08] MEDS: Calcium + Vitamin D 250 MG TABLET PO (09:23)
[2020-01-08] MEDS: Sodium Bicarbonate 650 MG TABLET PO (09:24)
--- NOTE | 2020-01-08 10:45 | P.PNNP_ITS ---
Physical Exam Vital Signs: Vital Signs: Vital Signs Temp Pulse Resp BP Pulse Ox 01/08/20 07:28 98.3 F 84 16 116/62 01/08/20 03:45 98.3 F 68 16 120/63 93 01/08/20 00:00 98.1 F 90 17 122/58 L 93 01/07/20 20:00 97.4 F 89 18 115/56 L 96 01/07/20 15:26 98.5 F 83 16 105/57 L 93 01/07/20 11:53 97.0 F 97 18 118/59 L 100 Body Mass Index 15.0 Const: General: cooperative and awake Orientation/consciousness: patient oriented x3 Neck: Neck: Yes supple Chest: Chest palpation & inspection: normal inspection of the chest Resp: Auscultation: clear to auscultation bilaterally Cardio: Palpation: no palpable S3 Heart sounds: no rubs GI: Inspection: Yes normal to inspection Palpation (GI): Soft to palpation Skin: General skin exam: no rashes or lesions noted Neuro: General: patient oriented x3 Assessment & Plan Assessment and plan (1) Dehydration: Problem details: Resolving Status: Acute (2) HTN (hypertension): Status: Acute (3) Metabolic acidosis: Problem details: Improved Status: Acute (4) Hypocalcemia: Status: Acute Assessment and Plan: iPTH pending Can increase Ca/Vit D to TID Time Spent With Patient Time: Total time spent is greater than 50% in coordination of care (as docume nted) at patient's floor/unit and/or counseling patient:
[2020-01-08 11:10] VITALS: BP 102/59; PULSE 84; RESP 18; TEMP 36.9; O2SAT 95
--- NOTE | 2020-01-08 11:58 | PM.DS ---
DS: Providers Provider Date of admission: 01/02/20 22:49 Primary care physician: Regina Cole MD Consults: 01/02/20 23:25 Consult to Physician Routine Consulting Provider: Infectious Disease Reason for consultation: Sepsis Has provider been notified: No 01/03/20 08:04 Consult to Nephrology Routine Consulting Provider: Michael Cohen Reason for consultation: Severe metabolic alkalosis 01/03/20 09:25 Consult to Gastroenterology Routine Consulting Provider: Goran Still Reason for consultation: Colitis with acute on chronic diarrhea DS: Diagnosis Discharge Diagnosis (1) Dehydration: Status: Acute Problem details: Resolving (2) HTN (hypertension): Status: Acute (3) Metabolic acidosis: Status: Acute Problem details: Improved (4) Hypocalcemia: Status: Acute DS: Summary Hospital Course Hospital Course: Patient was admitted for sepsis due to pneumonia and completed 5 days of Zosyn, she was also had diarrhea with severe non-anion gap metabolic acidosis and hypocalcemia. He was given sodium bicarb, antidiarrheals, and oral calcium. Her labs significantly improved. And her diarrhea slowed down. Patient will be discharged and will follow-up BMP in 1 week to determine duration of therapy with sodium bicarb and will follow up with GI as outpatient. Time Spent with Patient Time attestation: Total time spent providing and/or coordinating discharge services: Physical Exam Vital Signs: Vital Signs: Vital Signs Temp Pulse Resp BP Pulse Ox 01/08/20 11:10 98.4 F 84 18 102/59 L 95 01/08/20 07:28 98.3 F 84 16 116/62 01/08/20 03:45 98.3 F 68 16 120/63 93 01/08/20 00:00 98.1 F 90 17 122/58 L 93 01/07/20 20:00 97.4 F 89 18 115/56 L 96 01/07/20 15:26 98.5 F 83 16 105/57 L 93 Body Mass Index 15.0 General: AO X 3, no acute distress Resp: CTA bilateral CVS: S1,S2,RRR GI: soft, non tender, non distended Neuro: motor grossly intact Psych: appropriate affect DS: Data Data Completed and Pending Labs on day of discharge: Labs from last 24 hours 01/08/20 01/08/20 05:18 05:18 WBC 4.5 L RBC 3.31 L Hgb 8.8 L Hct 28.5 L MCV 86.1 MCH 26.6 L MCHC 30.9 L RDW 18.1 H Plt Count 166 MPV 11.3 Immature Gran % (Auto) 0.7 H Neut % (Auto) 81.7 H Lymph % (Auto) 10.7 L [place] % (Auto) 6.2 Eos % (Auto) 0.0 Baso % (Auto) 0.7 Lymph # (Auto) 0.5 L [place] # (Auto) 0.3 Eos # (Auto) 0.0 Baso # (Auto) 0.0 Abs Immat Gran (auto) 0.03 Absolute Neuts (auto) 3.7 Absolute Nucleated RBC 0.000 Nucleated RBC % (auto) 0.0 Smear Tech's Comments VERIFIED Sodium 138 Potassium 4.0 Chloride 109 H Carbon Dioxide 21 L Anion Gap 12 BUN 14 Creatinine 1.10 Estim Creat Clear Calc 24.1 Estimated GFR 48 Fasting Glucose 183 H Calcium 6.3 L Discharge Plan Discharge Patient Disposition: Home, Self-Care Referrals: Regina Cole MD [Primary Care Provider] - Discharge Medications: New diphenoxylate-atropine 2.5-0.025 mg Tablet 1 tab PO BID Qty: 30 RF: 0 loperamide [Imodium A-D] 1 mg/7.5 mL Liquid 2 mg PO 8XD PRN (Reason: Diarrhea) Qty: 0 RF: 0 sodium bicarbonate 650 mg Tablet 650 mg PO TID Qty: 30 RF: 0 calcium carbonate [[place]yster [place] Calcium 500] 500 mg calcium (1,250 mg) Tablet 500 mg PO BID Qty: 60 RF: 0 Continued cholecalciferol (vitamin D3) 25 mcg (1,000 unit) capsule 25 mcg PO DAILY 90 Days Qty: 90 RF: 0 omeprazole 20 mg capsule,delayed release(DR/EC) 20 mg PO DAILY@0630 RF: 0 pravastatin 20 mg tablet 20 mg PO BEDTIME RF: 0 losartan 25 mg tablet 25 mg PO DAILY RF: 0 mesalamine 400 mg Tablet,Delayed Release (Dr/Ec) 1,600 mg PO BID RF: 0 potassium chloride 20 mEq Tablet Extended Release 20 meq PO BID RF: 0 calcium citrate-vitamin D3 250 mg-5 mcg (200 unit) Tablet 1 tab PO BID RF: 0 Discharge Orders: Discharge Order (Routine); Ordered 10/28/20 Ordered By: Ricardo Samuels Diet: advance to your usual diet Activity on Discharge: As tolerated Other Ambulatory Orders: Basic Metabolic Panel Fasting (Routine) Timeframe: 1 Week Facility: [facility] - Location: Laboratory Ordered By: Ricardo Samuels Visit Report Forms: Patient Portal Discharge page Care Plan Goals: recovery Health Concerns: diarrhea, hypocalcemia, acidosis Plan of Treatment: started lomotil, imodium, tums, sodium bicarb, follow up with gi
--- NOTE | 2020-01-08 12:15 | MHC.CM.PN ---
Patient will be discharged home today no services. Family will provide transportation.
[2020-01-08 21:42] LABS: Calcium (PTHI) 6.3 mg/dL (8.6-10.4); PTHI 123 pg/mL (14-64)
== END 2020-01-08 13:05 | disposition home or self-care (01) | DRG 871 ==
LOC: HO.ED 22:00 → HO.S3 23:19 → HO.IMC 01-03 08:22
PROVIDERS: Family Medicine; Internal Medicine Hypertension Specialist; Internal Medicine Nephrology; Student in an Organized Health Care Education/Training Program; Admitting Provider Internal Medicine; Emergency Provider Emergency Medicine; PCP Internal Medicine; Visit Provider Internal Medicine
DX: A41.9 Sepsis, unspecified organism (principal); J18.9 Pneumonia, unspecified organism; N39.0 Urinary tract infection, site not specified; E87.2 Acidosis; E44.0 Moderate protein-calorie malnutrition; Z68.1 Body mass index [BMI] 19.9 or less, adult; N17.9 Acute kidney failure, unspecified; E83.51 Hypocalcemia; I10 Essential (primary) hypertension; K52.9 Noninfective gastroenteritis and colitis, unspecified; E86.0 Dehydration; K21.9 Gastro-esophageal reflux disease without esophagitis; Z20.828 Contact with and (suspected) exposure to other viral communicable diseases; Z88.5 Allergy status to narcotic agent; Z79.899 Other long term (current) drug therapy
CPT/HCPCS: 36415; 36600; 71045; 74176; 80048; 80051; 80053; 80076; 81001; 82800; 82803; 82947; 83605; 83690; 83735; 83880; 83970; 85025; 85027; 86850; 86900; 86901; 86920; 86923; 87040; 87086; 87635; 92610; 93005; 96361; 96365; 99225; 99232; 99285; 99291; J0610; J1956; J2543; P9016

== ENCOUNTER 2020-01-31 15:28 | Outpatient (REF) | payer MEDICARE, SELFPAY ==
--- NOTE | 2020-01-31 15:36 | XR_ITS ---
EXAMINATION: XR CHEST CLINICAL INFORMATION: Pneumonia. COMPARISON: 01/02/2020. TECHNIQUE: 2 views of the chest were obtained. FINDINGS: A focal opacity seen posteriorly in the right lower lobe likely within the superior segment. The left lung is clear. There are no pleural effusions. The heart and mediastinal structures are unremarkable. XR/XR chest 2V IMPRESSION: Focal opacity posteriorly in the right lower lobe, likely in the superior segment was not seen on the previous chest radiographs favoring pneumonia. Given this has a somewhat nodular appearance, a repeat PA and lateral view of the chest is recommended following termination of treatment for pneumonia to assess for resolution. If this finding does not resolve, a chest CT scan is recommended.
== END 2020-01-31 15:29 | disposition home or self-care (01) ==
LOC: HO.XRAY 15:28
PROVIDERS: PCP Internal Medicine; Referring Provider Internal Medicine Medical Oncology; Visit Provider Internal Medicine
DX: J18.9 Pneumonia, unspecified organism (principal)
CPT/HCPCS: 71046

== ENCOUNTER → 2020-01-31 16:00 | Outpatient (BNV) | payer MEDICARE, SELFPAY | PROVIDERS: PCP Internal Medicine; Visit Provider Internal Medicine Medical Oncology | DX: N18.30 Chronic kidney disease, stage 3 unspecified (principal); D63.1 Anemia in chronic kidney disease; M81.0 Age-related osteoporosis without current pathological fracture; Z85.3 Personal history of malignant neoplasm of breast | CPT/HCPCS: 99213; 99214 ==

== ENCOUNTER 2020-03-02 12:58 | Outpatient (REF) | payer MEDICARE, SELFPAY ==
--- NOTE | 2020-03-02 13:04 | XR_ITS ---
EXAMINATION: XR CHEST CLINICAL INFORMATION: Pneumonia. COMPARISON: Chest 01/31/2020. TECHNIQUE: 2 views of the chest were obtained. FINDINGS: The lungs are well-expanded with bandlike haziness and reticular interstitial changes in the right midlung region question atelectasis or developing infiltrate. Rest of lungs are clear. The heart size and pulmonary vascularity is normal. No gross bony abnormality seen. XR/XR chest 2V IMPRESSION: Bandlike haziness and reticular interstitial changes in right middle lobe suspicious for developing infiltrate or atelectasis.
== END 2020-03-02 12:59 | disposition home or self-care (01) ==
LOC: HO.HMGCX 12:58
PROVIDERS: PCP Internal Medicine; Visit Provider Internal Medicine
DX: J18.9 Pneumonia, unspecified organism (principal); R93.89 Abnormal findings on diagnostic imaging of other specified body structures
CPT/HCPCS: 71046

== ENCOUNTER → 2020-07-30 11:30 | Outpatient (BNVA) | payer MEDICARE, SELFPAY | PROVIDERS: PCP Internal Medicine; Referring Provider Internal Medicine; Visit Provider Surgery | DX: Z85.3 Personal history of malignant neoplasm of breast (principal) | CPT/HCPCS: 99212 ==

== ENCOUNTER 2020-09-11 15:27 | Emergency (ER) | payer MEDICARE, SELFPAY ==
--- NOTE | ~2020-09-11 | XR_ITS ---
EXAMINATION: RIGHT WRIST AND LEFT HIP X-RAYS CLINICAL INFORMATION: Fall. Pain. COMPARISON: None TECHNIQUE: 3 views of the right wrist and 2 views of the left hip FINDINGS: Right wrist: Bone alignment is normal. No fracture or dislocation is seen. There is arthritis at the first LONG-TERM joint with joint space narrowing and osteophyte formation. Soft tissues are unremarkable. Left hip: There is a left femoral intertrochanteric fracture. Femoral acetabular alignment appears normal. There is soft tissue arterial calcification. XR/XR hip LT w PEL1V IMPRESSION: Right wrist: No fracture or dislocation. Arthritis. Left hip: Left femoral intertrochanteric fracture.
--- NOTE | ~2020-09-11 | XR_ITS ---
EXAMINATION: XR CHEST CLINICAL INFORMATION: Broken hip COMPARISON: Previous chest x-ray February 2020 TECHNIQUE: Frontal view of the chest was obtained. FINDINGS: Exam is limited due to patient positioning. The right lateral costophrenic angle is not included in the [id number]. The cardiac and mediastinal contours are normal. There is a lucent centered calcification projects over the right chest. This is in a different location compared to most recent exam February 2020 and probably presents a right breast calcification. The lungs are otherwise clear. There is no pleural effusion or pneumothorax. There may be old left anterior fourth rib fracture. There are degenerative changes of the spine. XR/XR chest 1V IMPRESSION: Limited exam due to patient positioning. No evidence for acute disease in the chest.
--- NOTE | ~2020-09-11 | XR_ITS ---
EXAMINATION: RIGHT WRIST AND LEFT HIP X-RAYS CLINICAL INFORMATION: Fall. Pain. COMPARISON: None TECHNIQUE: 3 views of the right wrist and 2 views of the left hip FINDINGS: Right wrist: Bone alignment is normal. No fracture or dislocation is seen. There is arthritis at the first SKILLED NURSING joint with joint space narrowing and osteophyte formation. Soft tissues are unremarkable. Left hip: There is a left femoral intertrochanteric fracture. Femoral acetabular alignment appears normal. There is soft tissue arterial calcification. XR/XR wrist RT 2V IMPRESSION: Right wrist: No fracture or dislocation. Arthritis. Left hip: Left femoral intertrochanteric fracture.
[2020-09-11 15:39] VITALS: BP 138/99; BP 148/72; PULSE 102; PULSE 97; RESP 18; TEMP 36.6; O2SAT 96; BMI 18.8
[2020-09-11 16:43] VITALS: BP 149/66; PULSE 88; RESP 16; TEMP 36.6; O2SAT 98
[2020-09-11] MEDS: Morphine Sulfate 4 MG/ML CARTRIDGE IVPUSH ×2 (17:06→20:40)
[2020-09-11] MEDS: ondansetron HCL 4 MG/2 ML VIAL IVPUSH (17:07)
--- NOTE | 2020-09-11 17:07 | PHA.MEDREC ---
Pharmacy Consult ? Medication Reconciliation Pharmacy has completed the medication reconciliation.
[2020-09-11 17:13] LABS: Basophils Percent Auto 0.2 % (0-2); Hematocrit 33.5 % (37-47); Hemoglobin 9.9 g/dl (12.0-16.0); Imm Gran Abs Auto 0.13 X10*3/uL (0.00-0.03); Imm Gran Pct Auto 0.7 % (0.0-0.4); Lymphocytes Absolute Auto 0.5 X10*3/uL (1.2-4.9); Lymphocytes Percent Auto 2.6 % (20-40); MANUAL DIFF FLAG SCAN; Mean Corpuscular HGB Conc 29.6 g/dl (31.0-35.0); Mean Corpuscular Hemoglobin 23.7 pg (27.0-33.0); Mean Corpuscular Volume 80.3 fL (80-98); Mean Platelet Volume 10.1 fL (9.4-12.3); Monocytes Absolute Auto 0.6 X10*3/uL (0.1-1.2); Monocytes Percent Auto 3.1 % (2-11); Neutrophils Percent Auto 93.4 % (45-73); Platelet Count 252 X10*3/uL (160-400); Red Blood Count 4.17 X10*6/uL (4.20-5.50); Red Cell Distribution Width 16.1 % (11.0-16.0); SCAN SMEAR FLAG 1; White Blood Count 18.2 X10*3/uL (4.8-10.8)
[2020-09-11 17:19] LABS: INTERNATIONAL NORM RATIO 1.4 (0.9-1.1); Prothrombin Time 15.7 SEC (9.9-13.0)
[2020-09-11 17:22] LABS: Partial Thromboplastin Time 28.3 SEC (24.1-38.0)
--- NOTE | 2020-09-11 17:29 | ED.FALL ---
HPI - Fall General Chief Complaint: Fall Stated Complaint: fall, left knee pain Time Seen by Provider: 09/11/20 15:44 Source: patient Mode of arrival: EMS Limitations: no limitations History of Present Illness HPI Narrative: patient very frail with history of hypertension chronic anemia on Procrit injections weighing about 45 kg was at [employer] store coming out her legs gave out and she had a mechanical fall landing on her left hip no head injury no other injuries patient was unable to get up because of pain brought by EMS no history of any broken bone in the past Related Data Home Medications Medication Instructions Recorded Confirmed zinc 50 mg tablet 50 mg PO DAILY 07/30/20 09/11/20 calcium carbonate 1 tab PO BID 09/11/20 09/11/20 calcium carbonate-vitamin D3 1 tab PO BID 09/11/20 09/11/20 mesalamine 4 cap PO BID 09/11/20 09/11/20 Previous Rx's Medication Instructions Recorded losartan 25 mg tablet 25 mg PO DAILY #90 tab 06/19/20 pravastatin 20 mg tablet 20 mg PO BEDTIME #90 tab 08/20/20 cholecalciferol (vitamin D3) 25 25 mcg PO DAILY #90 cap 08/31/20 mcg (1,000 unit) capsule omeprazole 20 mg capsule,delayed 20 mg PO DAILY #90 cap 08/31/20 release Allergies Allergy/AdvReac Type Severity Reaction Status Date / Time cephalexin [From KEFLEX] Allergy Unknown pt cannot Verified 08/27/20 12:49 remember reaction codeine [CODEINE] Allergy Unknown MOOD Verified 08/27/20 12:49 CHANGE, dizziness indigotindisulfonic acid Allergy Unknown increased Verified 08/27/20 12:49 [[place]] blood pressure blue dye [BLUE DYE] AdvReac Intermediate ELEVATED Verified 08/27/20 12:49 BLOOD PRESSURE lisinopril [LISINOPRIL] AdvReac Unknown cough, dry Verified 08/27/20 12:49 cough simvastatin [From ZOCOR] AdvReac Unknown pt can't Verified 08/27/20 12:49 remember reaction Review of Systems Review of Systems: Yes all other systems are reviewed and are negative [facility] Past Medical History Medical History Cholecystectomy planned Diarrhea History of breast cancer Surgical History History of colonoscopy History of esophagogastroduodenoscopy (EGD) History of excision of mass History of hysterectomy History of lumpectomy of right breast History of mammogram Family History Family History Father CHF (congestive heart failure) Mother Diabetes mellitus Brother No problems noted. Sister No problems noted. Daughter No problems noted. Son No problems noted. Son No problems noted. Social History Social History Household Members: Spouse Housing: House Do you presently have visiting nurse or other home services: No Alcohol intake: never Patient Tobacco Use Status: Never used Tobacco Use of substances other than those prescribed or required for medical reasons: No Advance Directives: No Advance Directives Information Provided: Yes service: No Physical Exam Vital Signs: Vital Signs: Last Vital Signs Temp 97.9 F 09/11/20 19:26 Pulse 92 09/11/20 20:42 Resp 18 09/11/20 21:02 BP 144/62 H 09/11/20 20:42 Pulse Ox 99 09/11/20 20:42 Body Mass Index 18.8 Const: General: comfortable and no acute distress Nutritional Appearance: underweight Orientation/consciousness: patient oriented x3 HENMT: Head: Yes normocephalic and Yes atraumatic Mouth: Normal oral and palatal mucosa present Eyes: General: appearance normal, both eyes and all related structures Neck: Neck: Yes full ROM, Yes trachea midline, Yes supple, No midline deformity and No tender Chest: Chest palpation & inspection: normal inspection of the chest and normal palpation of entire chest wall Resp: Effort & Inspection: normal respiratory effort Auscultation: clear to auscultation bilaterally Cardio: Palpation: normal PMI Rate: regular rate Rhythm: regular rhythm Heart sounds: S1 normal heart sound present and S2 normal heart sound present Peripheral pulses: Peripheral pulses 2+ throughout GI: Inspection: Yes normal to inspection Palpation (GI): Soft to palpation and nontender Auscultation: normal bowel sounds Skin: General skin exam: no rashes or lesions noted Neuro: General: patient oriented x3 and no focal motor deficits Extrem: Other: Superficial abrasion right wrist obvious deformity of left hip suggestive of hip fracture Upper/lower leg/hip images: 1. tender left greater trochanteric area adducted and externally rotated MDM - Fall Lab Data Attestation: I reviewed the patient's lab results. Lab results narrative: patient status post mechanical fall x-ray showed left hip intertrochanteric fracture no head injury no loss of consciousness case discussed Dr. Wood orthopedic she does not do hip surgeries advised to transfer the patient to [facility]. Case discussed with Dr. Marcus at [facility] ER accepted the patient for transfer Result diagrams: 09/11/20 17:08 09/11/20 17:47 Labs: Lab Results 09/11/20 09/11/20 09/11/20 Range/Units 17:07 17:08 17:08 WBC 18.2 H (4.8-10.8) X10*3/uL RBC 4.17 L (4.20-5.50) X10*6/uL Hgb 9.9 L (12.0-16.0) g/dl Hct 33.5 L (37-47) % MCV 80.3 (80-98) fL MCH 23.7 L (27.0-33.0) pg MCHC 29.6 L (31.0-35.0) g/dl RDW 16.1 H (11.0-16.0) % Plt Count 252 (160-400) X10*3/uL MPV 10.1 (9.4-12.3) fL Immature Gran % (Auto) 0.7 H (0.0-0.4) % Neut % (Auto) 93.4 H (45-73) % Lymph % (Auto) 2.6 L (20-40) % [place] % (Auto) 3.1 (2-11) % Eos % (Auto) 0.0 (0-4) % Baso % (Auto) 0.2 (0-2) % Lymph # (Auto) 0.5 L (1.2-4.9) X10*3/uL [place] # (Auto) 0.6 (0.1-1.2) X10*3/uL Eos # (Auto) 0.0 (0.0-0.4) X10*3/uL Baso # (Auto) 0.0 (0.0-0.2) X10*3/uL Abs Immat Gran (auto) 0.13 H (0.00-0.03) X10*3/uL Absolute Neuts (auto) 17.0 H (2.0-8.3) X10*3/uL Absolute Nucleated RBC 0.000 (0.0-0.012) X10*3/uL Nucleated RBC % (auto) 0.0 (0.0-0.2) /100WBC Smear Tech's Comments VERIFIED PT 15.7 H (9.9-13.0) SEC INR 1.4 H (0.9-1.1) APTT 28.3 (24.1-38.0) SEC Sodium (135-145) mmol/L Potassium (3.3-5.1) mmol/L Chloride (96-108) mmol/L Carbon Dioxide (22-29) mmol/L Anion Gap (12-20) BUN (9-16) mg/dL Creatinine (0.5-1.4) mg/dL Estim Creat Clear Calc Estimated GFR Random Glucose (60-115) mg/dL Calcium (8.4-10.2) mg/dL Total Bilirubin (0.0-1.0) mg/dL AST (5-31) U/L ALT (0-31) U/L Alkaline Phosphatase (39-117) U/L Total Protein (6.5-8.0) g/dL Albumin (3.5-5.0) g/dL Urine Color Urine Appearance Urine pH (5.0-8.0) Ur Specific [place] (1.005-1.025) Urine Protein (NEG-TRACE) MG/DL Urine Glucose (UA) (NEG) MG/DL Urine Ketones (NEG) MG/DL Urine Blood (NEG) Urine Nitrite (NEG) Ur Leukocyte Esterase (NEG) Urine RBC (0) /HPF Urine WBC (0-4) /HPF Ur Squamous Epith Cells /LPF Urine Bacteria /LPF Hyaline Casts /LPF Granular Casts /LPF Urine Mucus /LPF COVID-19 ([facility]) Negative (Negative) COVID-19 Clin Com See Note Blood Type Antibody Screen 09/11/20 09/11/20 09/11/20 Range/Units 17:24 17:47 20:18 WBC (4.8-10.8) X10*3/uL RBC (4.20-5.50) X10*6/uL Hgb (12.0-16.0) g/dl Hct (37-47) % MCV (80-98) fL MCH (27.0-33.0) pg MCHC (31.0-35.0) g/dl RDW (11.0-16.0) % Plt Count (160-400) X10*3/uL MPV (9.4-12.3) fL Immature Gran % (Auto) (0.0-0.4) % Neut % (Auto) (45-73) % Lymph % (Auto) (20-40) % [place] % (Auto) (2-11) % Eos % (Auto) (0-4) % Baso % (Auto) (0-2) % Lymph # (Auto) (1.2-4.9) X10*3/uL [place] # (Auto) (0.1-1.2) X10*3/uL Eos # (Auto) (0.0-0.4) X10*3/uL Baso # (Auto) (0.0-0.2) X10*3/uL Abs Immat Gran (auto) (0.00-0.03) X10*3/uL Absolute Neuts (auto) (2.0-8.3) X10*3/uL Absolute Nucleated RBC (0.0-0.012) X10*3/uL Nucleated RBC % (auto) (0.0-0.2) /100WBC Smear Tech's Comments PT (9.9-13.0) SEC INR (0.9-1.1) APTT (24.1-38.0) SEC Sodium 137 (135-145) mmol/L Potassium 3.9 (3.3-5.1) mmol/L Chloride 106 (96-108) mmol/L Carbon Dioxide 19 L (22-29) mmol/L Anion Gap 16 (12-20) BUN 22 H (9-16) mg/dL Creatinine 1.07 (0.5-1.4) mg/dL Estim Creat Clear Calc 30.5 Estimated GFR 49 Random Glucose 150 H D (60-115) mg/dL Calcium 8.2 L (8.4-10.2) mg/dL Total Bilirubin 0.7 (0.0-1.0) mg/dL AST 8 (5-31) U/L ALT < 6 (0-31) U/L Alkaline Phosphatase 79 (39-117) U/L Total Protein 6.6 (6.5-8.0) g/dL Albumin 3.1 L (3.5-5.0) g/dL Urine Color YELLOW Urine Appearance CLEAR Urine pH 6.0 (5.0-8.0) Ur Specific [place] 1.020 (1.005-1.025) Urine Protein 1+ H (NEG-TRACE) MG/DL Urine Glucose (UA) NEG (NEG) MG/DL Urine Ketones NEG (NEG) MG/DL Urine Blood TRACE (NEG) Urine Nitrite NEG (NEG) Ur Leukocyte Esterase TRACE H (NEG) Urine RBC 5-9 H (0) /HPF Urine WBC 10-14 H (0-4) /HPF Ur Squamous Epith Cells TRACE /LPF Urine Bacteria TRACE /LPF Hyaline Casts 0-2 /LPF Granular Casts 0-2 /LPF Urine Mucus TRACE /LPF COVID-19 ([facility]) (Negative) COVID-19 Clin Com Blood Type A Negative Antibody Screen NEGATIVE Imaging Data left hip x-ray: Attestation: I personally reviewed and interpreted this imaging study as follows: Radiologist's impression: [address] [id number] ReportSigned Patient: Jyoti Wooten AMR#: [id number]: 2Acct:[id number]/Sex: 80 / FADM Date: 09/11/20Loc: [email or web address].EDAttending Dr: Ordering Physician: Generic ED Physician Date of Service: 09/11/20 Procedure(s): XR wrist RT 2V Accession Number(s): [id number] cc: Generic ED Physician~ EXAMINATION: RIGHT WRIST AND LEFT HIP X-RAYS CLINICAL INFORMATION: Fall. Pain. COMPARISON: None TECHNIQUE: 3 views of the right wrist and 2 views of the left hip FINDINGS: Right wrist: Bone alignment is normal. No fracture or dislocation is seen. There is arthritis at the first HALF-WAY joint with joint space narrowing and osteophyte formation. Soft tissues are unremarkable. Left hip: There is a left femoral intertrochanteric fracture. Femoral acetabular alignment appears normal. There is soft tissue arterial calcification. XR/XR wrist RT 2V IMPRESSION: Right wrist: No fracture or dislocation. Arthritis. Left hip: Left femoral intertrochanteric fracture. Dictated By:DEONDRE TURNER MDSigned By:<Electronically signed by DEONDRE TURNER MD in OV>09/11/20 [id number] Discharge Plan Discharge Clinical Impression: Closed hip fracture Qualifiers: Encounter type: initial encounter Laterality: left Qualified Code(s): S72.002A - Fracture of unspecified part of neck of left femur, initial encounter for closed fracture Patient Disposition: [facility] Transfer Details: to [facility] ED under Dr. Marcus Prescriptions: No Action losartan 25 mg tablet 25 mg PO DAILY Qty: 90 RF: 0 pravastatin 20 mg tablet 20 mg PO BEDTIME Qty: 90 RF: 0 omeprazole 20 mg capsule,delayed release(DR/EC) 20 mg PO DAILY Qty: 90 RF: 0 cholecalciferol (vitamin D3) 25 mcg (1,000 unit) capsule 25 mcg PO DAILY Qty: 90 RF: 0 calcium carbonate-vitamin D3 250-125 mg-unit tablet 1 tab PO BID RF: 0 mesalamine 400 mg capsule (with del rel tablets) 4 cap PO BID RF: 0 calcium carbonate 500 mg calcium (1,250 mg) tablet 1 tab PO BID RF: 0 zinc 50 mg tablet 50 mg PO DAILY RF: 0 Interventions: Acute Care Transfer Worksheet (ED) Last Done: 09/11/20 21:14 Discharge Date/Time: 09/11/20 21:15
[2020-09-11 17:31] LABS: COVID-19 Test Negative (Negative); IDNOW Serial# 9DD0AD1C
[2020-09-11 17:38] LABS: SLIDE REVIEW VERIFIED
--- NOTE | 2020-09-11 17:45 | PC.NURSE ---
nallely montanez daughter, cell phone
[2020-09-11 18:25] LABS: Alanine Aminotransferase < 6 U/L (0-31); Albumin Level 3.1 g/dL (3.5-5.0); Alkaline Phosphatase 79 U/L (39-117); Anion Gap 16 (12-20); Aspartate Amino Transferase 8 U/L (5-31); Bilirubin Total 0.7 mg/dL (0.0-1.0); Blood Urea Nitrogen 22 mg/dL (9-16); Calcium 8.2 mg/dL (8.4-10.2); Carbon Dioxide 19 mmol/L (22-29); Chloride 106 mmol/L (96-108); Creatinine Clr Calc Pharmacy 30.5; Estimated Glomerular Filt Rate 49; Glucose Random 150 mg/dL (60-115); Potassium 3.9 mmol/L (3.3-5.1); Sodium 137 mmol/L (135-145); Total Protein 6.6 g/dL (6.5-8.0)
[2020-09-11] MEDS: fentaNYL citrate/PF 100 MCG/2 ML VIAL 50 MCG IVPUSH (18:37)
[2020-09-11 19:26] VITALS: BP 140/66; PULSE 99; RESP 18; TEMP 36.6; O2SAT 98
--- NOTE | 2020-09-11 20:26 | PC.NURSE ---
Pt laying in position of comfort, frazier draining clear, yellow urine. Pt requesting more pain medication- Dr. Branham aware. Pt frequently grimacing. Awaiting transport for transfer to [facility].
[2020-09-11 20:28] LABS: Glucose Urine UA NEG (NEG); Leukocyte Esterase Urine TRACE (NEG); Nitrite Urine NEG (NEG); UACC Culture Trigger YES; Urine Blood TRACE (NEG); Urine Ketones NEG (NEG); Urine Protein 1+ MG/DL (NEG-TRACE)
[2020-09-11 20:30] LABS: Appearance Urine CLEAR; Color Urine YELLOW
[2020-09-11 20:40] VITALS: RESP 18
[2020-09-11 20:42] VITALS: BP 144/62; PULSE 92; RESP 18; O2SAT 99
[2020-09-11 20:43] LABS: Bacteria Urine TRACE /LPF; Granular Casts Urine 0-2 /LPF; Hyaline Casts Urine 0-2 /LPF; Mucus Urine TRACE /LPF; Squamous Epithelial Cell Urine TRACE /LPF
[2020-09-11 21:02] VITALS: RESP 18
[2020-09-11] MEDS: HYDROmorphone HCl 1 MG/ML SYRINGE IVPUSH (21:02)
--- NOTE | 2020-09-11 21:12 | PC.NURSE ---
Report given to ZEB Perez at [facility] ED.
== END 2020-09-11 21:15 | disposition short-term general hospital (02) ==
PROVIDERS: Emergency Provider Internal Medicine; PCP Internal Medicine
DX: S72.142A Displaced intertrochanteric fracture of left femur, initial encounter for closed fracture (principal); D64.9 Anemia, unspecified; I10 Essential (primary) hypertension; Z79.899 Other long term (current) drug therapy; W18.30XA Fall on same level, unspecified, initial encounter; Y93.9 Activity, unspecified; Y92.512 Supermarket, store or market as the place of occurrence of the external cause; Y99.9 Unspecified external cause status; Z20.822 Contact with and (suspected) exposure to COVID-19
CPT/HCPCS: 36415; 71045; 73100; 73502; 80053; 81001; 81003; 85025; 85610; 85730; 86850; 86900; 86901; 87086; 87635; 96374; 96375; 96376; 99285; J1170; J2270; J2405; J3010

== ENCOUNTER 2020-11-11 08:33 | Outpatient (REF) | payer MEDICARE, SELFPAY ==
[2020-11-11 11:51] LABS: MANUAL DIFF FLAG NO
[2020-11-11 11:55] LABS: Basophils Percent Auto 0.4 % (0-2); Hematocrit 28.7 % (37-47); Imm Gran Abs Auto 0.03 X10*3/uL (0.00-0.03); Imm Gran Pct Auto 0.4 % (0.0-0.4); Lymphocytes Absolute Auto 0.7 X10*3/uL (1.2-4.9); Lymphocytes Percent Auto 9.3 % (20-40); Mean Corpuscular HGB Conc 31.4 g/dl (31.0-35.0); Mean Corpuscular Hemoglobin 27.4 pg (27.0-33.0); Mean Corpuscular Volume 87.2 fL (80-98); Mean Platelet Volume 9.7 fL (9.4-12.3); Monocytes Absolute Auto 0.4 X10*3/uL (0.1-1.2); Neutrophils Absolute Auto 6.8 X10*3/uL (2.0-8.3); Neutrophils Percent Auto 84.9 % (45-73); Platelet Count 176 X10*3/uL (160-400); Red Blood Count 3.29 X10*6/uL (4.20-5.50); Red Cell Distribution Width 17.6 % (11.0-16.0)
[2020-11-11 12:42] LABS: Alanine Aminotransferase < 6 U/L (0-31); Albumin Level 3.3 g/dL (3.5-5.0); Alkaline Phosphatase 94 U/L (39-117); Anion Gap 14 (12-20); Aspartate Amino Transferase 8 U/L (5-31); Bilirubin Total 0.6 mg/dL (0.0-1.0); Blood Urea Nitrogen 21 mg/dL (9-16); Calcium 8.5 mg/dL (8.4-10.2); Carbon Dioxide 24 mmol/L (22-29); Chloride 105 mmol/L (96-108); Estimated Glomerular Filt Rate 53; Glucose Random 86 mg/dL (60-115); Potassium 4.1 mmol/L (3.3-5.1); Sodium 139 mmol/L (135-145)
== END 2020-11-11 08:34 | disposition home or self-care (01) ==
LOC: HO.LHD 08:33
PROVIDERS: Visit Provider Internal Medicine Medical Oncology
DX: D64.9 Anemia, unspecified (principal); C50.919 Malignant neoplasm of unspecified site of unspecified female breast
CPT/HCPCS: 36415; 80053; 85025

== ENCOUNTER 2020-11-25 06:55 | Outpatient (REF) | payer MEDICARE, SELFPAY ==
[2020-11-25 10:57] LABS: Hematocrit 29.7 % (37-47); Hemoglobin 9.2 g/dl (12.0-16.0); Mean Corpuscular Hemoglobin 27.8 pg (27.0-33.0); Mean Corpuscular Volume 89.7 fL (80-98); Mean Platelet Volume 9.2 fL (9.4-12.3); Platelet Count 208 X10*3/uL (160-400); Red Blood Count 3.31 X10*6/uL (4.20-5.50); Red Cell Distribution Width 19.1 % (11.0-16.0); White Blood Count 7.3 X10*3/uL (4.8-10.8)
[2020-11-25 12:00] LABS: Alanine Aminotransferase < 6 U/L (0-31); Albumin Level 3.5 g/dL (3.5-5.0); Alkaline Phosphatase 80 U/L (39-117); Anion Gap 14 (12-20); Aspartate Amino Transferase 6 U/L (5-31); Bilirubin Total 0.8 mg/dL (0.0-1.0); Blood Urea Nitrogen 17 mg/dL (9-16); Calcium 8.4 mg/dL (8.4-10.2); Carbon Dioxide 26 mmol/L (22-29); Chloride 103 mmol/L (96-108); Estimated Glomerular Filt Rate 48; Glucose Random 126 mg/dL (60-115); Potassium 3.5 mmol/L (3.3-5.1); Sodium 139 mmol/L (135-145)
== END 2020-11-25 06:56 | disposition home or self-care (01) ==
LOC: HO.LHD 06:55
PROVIDERS: Visit Provider Internal Medicine Medical Oncology
DX: D64.9 Anemia, unspecified (principal); C50.919 Malignant neoplasm of unspecified site of unspecified female breast
CPT/HCPCS: 36415; 80053; 85027

== ENCOUNTER 2020-12-02 14:08 | Outpatient (REF) | payer MEDICARE, SELFPAY ==
[2020-12-02 11:31] LABS: MANUAL DIFF FLAG NO
[2020-12-02 11:35] LABS: Basophils Percent Auto 0.3 % (0-2); Hematocrit 29.9 % (37-47); Hemoglobin 9.2 g/dl (12.0-16.0); Imm Gran Abs Auto 0.03 X10*3/uL (0.00-0.03); Imm Gran Pct Auto 0.4 % (0.0-0.4); Lymphocytes Absolute Auto 0.5 X10*3/uL (1.2-4.9); Lymphocytes Percent Auto 7.3 % (20-40); Mean Corpuscular HGB Conc 30.8 g/dl (31.0-35.0); Mean Corpuscular Hemoglobin 28.5 pg (27.0-33.0); Mean Corpuscular Volume 92.6 fL (80-98); Mean Platelet Volume 9.3 fL (9.4-12.3); Monocytes Absolute Auto 0.4 X10*3/uL (0.1-1.2); Monocytes Percent Auto 5.5 % (2-11); Neutrophils Absolute Auto 6.2 X10*3/uL (2.0-8.3); Neutrophils Percent Auto 86.5 % (45-73); Platelet Count 203 X10*3/uL (160-400); Red Blood Count 3.23 X10*6/uL (4.20-5.50); Red Cell Distribution Width 19.5 % (11.0-16.0); White Blood Count 7.1 X10*3/uL (4.8-10.8)
[2020-12-02 12:26] LABS: Albumin Level 3.3 g/dL (3.5-5.0); Alkaline Phosphatase 76 U/L (39-117); Anion Gap 12 (12-20); Bilirubin Total 0.3 mg/dL (0.0-1.0); Blood Urea Nitrogen 17 mg/dL (9-16); Calcium 8.2 mg/dL (8.4-10.2); Carbon Dioxide 22 mmol/L (22-29); Chloride 106 mmol/L (96-108); Estimated Glomerular Filt Rate 38; Glucose Random 64 mg/dL (60-115); Potassium 3.7 mmol/L (3.3-5.1); Sodium 136 mmol/L (135-145); Total Protein 6.5 g/dL (6.5-8.0)
[2020-12-02 12:45] LABS: Alanine Aminotransferase < 6 U/L (0-31); Aspartate Amino Transferase 6 U/L (5-31)
== END 2020-12-02 14:09 | disposition home or self-care (01) ==
LOC: HO.LHD 14:08
PROVIDERS: Visit Provider Internal Medicine Medical Oncology
DX: C50.919 Malignant neoplasm of unspecified site of unspecified female breast (principal)
CPT/HCPCS: 36415; 80053; 85025

== ENCOUNTER 2020-12-09 13:33 | Outpatient (REF) | payer MEDICARE, SELFPAY ==
[2020-12-09 11:40] LABS: MANUAL DIFF FLAG NO
[2020-12-09 11:48] LABS: Basophils Percent Auto 0.2 % (0-2); Hematocrit 31.7 % (37-47); Hemoglobin 9.8 g/dl (12.0-16.0); Imm Gran Abs Auto 0.02 X10*3/uL (0.00-0.03); Imm Gran Pct Auto 0.5 % (0.0-0.4); Lymphocytes Absolute Auto 0.5 X10*3/uL (1.2-4.9); Lymphocytes Percent Auto 12.3 % (20-40); Mean Corpuscular HGB Conc 30.9 g/dl (31.0-35.0); Mean Corpuscular Hemoglobin 27.6 pg (27.0-33.0); Mean Corpuscular Volume 89.3 fL (80-98); Mean Platelet Volume 10.8 fL (9.4-12.3); Monocytes Absolute Auto 0.3 X10*3/uL (0.1-1.2); Monocytes Percent Auto 7.4 % (2-11); Neutrophils Absolute Auto 3.4 X10*3/uL (2.0-8.3); Neutrophils Percent Auto 79.6 % (45-73); Platelet Count 137 X10*3/uL (160-400); Red Blood Count 3.55 X10*6/uL (4.20-5.50); Red Cell Distribution Width 18.5 % (11.0-16.0); White Blood Count 4.3 X10*3/uL (4.8-10.8)
[2020-12-09 12:19] LABS: Carbon Dioxide 19 mmol/L (22-29); Chloride 106 mmol/L (96-108); Glucose Random 97 mg/dL (60-115)
[2020-12-09 13:17] LABS: Alanine Aminotransferase < 6 U/L (0-31); Albumin Level 3.5 g/dL (3.5-5.0); Alkaline Phosphatase 76 U/L (39-117); Anion Gap 15 (12-20); Aspartate Amino Transferase 5 U/L (5-31); Bilirubin Total 0.2 mg/dL (0.0-1.0); Blood Urea Nitrogen 21 mg/dL (9-16); Calcium 8.3 mg/dL (8.4-10.2); Estimated Glomerular Filt Rate 46; Potassium 3.8 mmol/L (3.3-5.1); Sodium 136 mmol/L (135-145); Total Protein 7.2 g/dL (6.5-8.0)
== END 2020-12-09 13:34 | disposition home or self-care (01) ==
LOC: HO.LHD 13:33
PROVIDERS: Visit Provider Internal Medicine Medical Oncology
DX: D64.9 Anemia, unspecified (principal); C50.919 Malignant neoplasm of unspecified site of unspecified female breast
CPT/HCPCS: 36415; 80053; 85025

== ENCOUNTER 2020-12-17 13:30 | Outpatient (REF) | payer MEDICARE, SELFPAY ==
[2020-12-16 10:19] LABS: Basophils Percent Auto 0.4 % (0-2); Hematocrit 29.9 % (37-47); Hemoglobin 9.2 g/dl (12.0-16.0); Imm Gran Abs Auto 0.03 X10*3/uL (0.00-0.03); Imm Gran Pct Auto 0.6 % (0.0-0.4); Lymphocytes Absolute Auto 0.4 X10*3/uL (1.2-4.9); Lymphocytes Percent Auto 8.7 % (20-40); MANUAL DIFF FLAG NO; Mean Corpuscular HGB Conc 30.8 g/dl (31.0-35.0); Mean Corpuscular Hemoglobin 27.6 pg (27.0-33.0); Mean Corpuscular Volume 89.8 fL (80-98); Mean Platelet Volume 9.2 fL (9.4-12.3); Monocytes Absolute Auto 0.3 X10*3/uL (0.1-1.2); Monocytes Percent Auto 5.4 % (2-11); Neutrophils Absolute Auto 4.3 X10*3/uL (2.0-8.3); Neutrophils Percent Auto 84.9 % (45-73); Platelet Count 172 X10*3/uL (160-400); Red Blood Count 3.33 X10*6/uL (4.20-5.50); Red Cell Distribution Width 17.8 % (11.0-16.0)
[2020-12-16 10:57] LABS: Alanine Aminotransferase < 6 U/L (0-31); Alkaline Phosphatase 69 U/L (39-117); Anion Gap 12 (12-20); Aspartate Amino Transferase 5 U/L (5-31); Bilirubin Total 0.5 mg/dL (0.0-1.0); Blood Urea Nitrogen 21 mg/dL (9-16); Carbon Dioxide 22 mmol/L (22-29); Chloride 106 mmol/L (96-108); Estimated Glomerular Filt Rate 53; Glucose Random 171 mg/dL (60-115); Sodium 136 mmol/L (135-145); Total Protein 6.4 g/dL (6.5-8.0)
== END 2020-12-17 13:31 | disposition home or self-care (01) ==
LOC: HO.LHD 13:30
PROVIDERS: Visit Provider Internal Medicine Medical Oncology
DX: D64.9 Anemia, unspecified (principal); C50.919 Malignant neoplasm of unspecified site of unspecified female breast
CPT/HCPCS: 36415; 80053; 85025

== ENCOUNTER 2020-12-23 12:32 | Outpatient (REF) | payer MEDICARE, SELFPAY ==
[2020-12-23 11:10] LABS: MANUAL DIFF FLAG NO
[2020-12-23 11:13] LABS: Basophils Absolute Auto 0.1 X10*3/uL (0.0-0.2); Basophils Percent Auto 0.7 % (0-2); Hematocrit 34.4 % (37-47); Hemoglobin 10.7 g/dl (12.0-16.0); Imm Gran Abs Auto 0.04 X10*3/uL (0.00-0.03); Imm Gran Pct Auto 0.6 % (0.0-0.4); Lymphocytes Absolute Auto 0.6 X10*3/uL (1.2-4.9); Lymphocytes Percent Auto 8.8 % (20-40); Mean Corpuscular HGB Conc 31.1 g/dl (31.0-35.0); Mean Corpuscular Volume 90.1 fL (80-98); Mean Platelet Volume 9.7 fL (9.4-12.3); Monocytes Absolute Auto 0.3 X10*3/uL (0.1-1.2); Monocytes Percent Auto 3.6 % (2-11); Neutrophils Percent Auto 86.3 % (45-73); Platelet Count 213 X10*3/uL (160-400); Red Blood Count 3.82 X10*6/uL (4.20-5.50); Red Cell Distribution Width 17.2 % (11.0-16.0)
[2020-12-23 11:52] LABS: Alanine Aminotransferase < 6 U/L (0-31); Albumin Level 3.5 g/dL (3.5-5.0); Alkaline Phosphatase 82 U/L (39-117); Anion Gap 12 (12-20); Aspartate Amino Transferase 6 U/L (5-31); Bilirubin Total 0.5 mg/dL (0.0-1.0); Blood Urea Nitrogen 25 mg/dL (9-16); Calcium 8.3 mg/dL (8.4-10.2); Carbon Dioxide 21 mmol/L (22-29); Chloride 107 mmol/L (96-108); Estimated Glomerular Filt Rate 51; Glucose Random 89 mg/dL (60-115); Potassium 3.5 mmol/L (3.3-5.1); Sodium 136 mmol/L (135-145); Total Protein 7.3 g/dL (6.5-8.0)
== END 2020-12-23 12:33 | disposition home or self-care (01) ==
LOC: HO.LHD 12:32
PROVIDERS: Visit Provider Internal Medicine Medical Oncology
DX: D64.9 Anemia, unspecified (principal); C50.919 Malignant neoplasm of unspecified site of unspecified female breast
CPT/HCPCS: 36415; 80053; 85025

== ENCOUNTER 2020-12-30 08:09 | Outpatient (REF) | payer MEDICARE, SELFPAY ==
[2020-12-30 10:58] LABS: MANUAL DIFF FLAG NO
[2020-12-30 11:04] LABS: Basophils Percent Auto 0.5 % (0-2); Hematocrit 35.1 % (37-47); Hemoglobin 10.7 g/dl (12.0-16.0); Imm Gran Abs Auto 0.03 X10*3/uL (0.00-0.03); Imm Gran Pct Auto 0.5 % (0.0-0.4); Lymphocytes Absolute Auto 0.7 X10*3/uL (1.2-4.9); Lymphocytes Percent Auto 10.8 % (20-40); Mean Corpuscular HGB Conc 30.5 g/dl (31.0-35.0); Mean Corpuscular Hemoglobin 26.8 pg (27.0-33.0); Mean Platelet Volume 9.8 fL (9.4-12.3); Monocytes Absolute Auto 0.4 X10*3/uL (0.1-1.2); Monocytes Percent Auto 5.8 % (2-11); Neutrophils Absolute Auto 5.3 X10*3/uL (2.0-8.3); Neutrophils Percent Auto 82.4 % (45-73); Platelet Count 173 X10*3/uL (160-400); Red Blood Count 3.99 X10*6/uL (4.20-5.50); Red Cell Distribution Width 16.5 % (11.0-16.0); White Blood Count 6.4 X10*3/uL (4.8-10.8)
[2020-12-30 12:11] LABS: Alanine Aminotransferase < 6 U/L (0-31); Albumin Level 3.6 g/dL (3.5-5.0); Alkaline Phosphatase 85 U/L (39-117); Anion Gap 12 (12-20); Aspartate Amino Transferase 7 U/L (5-31); Blood Urea Nitrogen 21 mg/dL (9-16); Carbon Dioxide 24 mmol/L (22-29); Chloride 106 mmol/L (96-108); Estimated Glomerular Filt Rate 54; Glucose Random 79 mg/dL (60-115); Potassium 4.1 mmol/L (3.3-5.1); Sodium 138 mmol/L (135-145); Total Protein 7.4 g/dL (6.5-8.0)
[2020-12-30 12:28] LABS: Ferritin 188 ng/mL (10-250)
== END 2020-12-30 08:10 | disposition home or self-care (01) ==
LOC: HO.LHD 08:09
PROVIDERS: Visit Provider Internal Medicine Medical Oncology
DX: N18.9 Chronic kidney disease, unspecified (principal); D63.1 Anemia in chronic kidney disease; C50.919 Malignant neoplasm of unspecified site of unspecified female breast
CPT/HCPCS: 36415; 80053; 82728; 85025

== ENCOUNTER 2021-01-06 11:20 | Outpatient (REF) | payer MEDICARE, SELFPAY ==
[2021-01-06 10:50] LABS: MANUAL DIFF FLAG NO
[2021-01-06 10:54] LABS: Basophils Percent Auto 0.6 % (0-2); Hematocrit 34.4 % (37-47); Imm Gran Abs Auto 0.03 X10*3/uL (0.00-0.03); Imm Gran Pct Auto 0.4 % (0.0-0.4); Lymphocytes Absolute Auto 0.7 X10*3/uL (1.2-4.9); Lymphocytes Percent Auto 11.1 % (20-40); Mean Corpuscular Hemoglobin 28.1 pg (27.0-33.0); Monocytes Absolute Auto 0.3 X10*3/uL (0.1-1.2); Monocytes Percent Auto 4.6 % (2-11); Neutrophils Absolute Auto 5.6 X10*3/uL (2.0-8.3); Neutrophils Percent Auto 83.3 % (45-73); Platelet Count 217 X10*3/uL (160-400); Red Blood Count 3.91 X10*6/uL (4.20-5.50); White Blood Count 6.7 X10*3/uL (4.8-10.8)
[2021-01-06 11:47] LABS: Alanine Aminotransferase < 6 U/L (0-31); Albumin Level 3.5 g/dL (3.5-5.0); Alkaline Phosphatase 74 U/L (39-117); Anion Gap 12 (12-20); Aspartate Amino Transferase 8 U/L (5-31); Bilirubin Total 0.6 mg/dL (0.0-1.0); Blood Urea Nitrogen 26 mg/dL (9-16); Calcium 8.4 mg/dL (8.4-10.2); Carbon Dioxide 23 mmol/L (22-29); Chloride 108 mmol/L (96-108); Estimated Glomerular Filt Rate 47; Glucose Random 79 mg/dL (60-115); Sodium 139 mmol/L (135-145)
== END 2021-01-06 11:21 | disposition home or self-care (01) ==
LOC: HO.LHD 11:20
PROVIDERS: Visit Provider Internal Medicine Medical Oncology
DX: D64.9 Anemia, unspecified (principal); C50.919 Malignant neoplasm of unspecified site of unspecified female breast
CPT/HCPCS: 36415; 80053; 85025

== ENCOUNTER 2021-01-13 13:40 | Outpatient (REF) | payer MEDICARE, SELFPAY ==
[2021-01-13 10:54] LABS: MANUAL DIFF FLAG NO
[2021-01-13 10:55] LABS: Basophils Percent Auto 0.6 % (0-2); Hematocrit 32.8 % (37.0-47.0); Hemoglobin 10.3 g/dl (12.0-16.0); Imm Gran Abs Auto 0.03 X10*3/uL (0.00-0.03); Imm Gran Pct Auto 0.4 % (0.0-0.4); Lymphocytes Percent Auto 14.2 % (20-40); Mean Corpuscular HGB Conc 31.4 g/dl (31.0-35.0); Mean Corpuscular Hemoglobin 27.5 pg (27.0-33.0); Mean Corpuscular Volume 87.5 fL (80.0-98.0); Mean Platelet Volume 9.8 fL (9.4-12.3); Monocytes Absolute Auto 0.4 X10*3/uL (0.1-1.2); Monocytes Percent Auto 6.1 % (2-11); Neutrophils Absolute Auto 5.26 x10*3/uL (2.0-8.3); Neutrophils Percent Auto 78.7 % (45-73); Platelet Count 174 X10*3/uL (160-400); Red Blood Count 3.75 X10*6/uL (4.20-5.50); Red Cell Distribution Width 15.7 % (11.0-16.0); White Blood Count 6.7 X10*3/uL (4.8-10.8)
[2021-01-13 11:32] LABS: Alanine Aminotransferase 6 U/L (0-31); Albumin Level 3.6 g/dL (3.5-5.0); Alkaline Phosphatase 76 U/L (39-117); Anion Gap 15 (12-20); Aspartate Amino Transferase 9 U/L (5-31); Bilirubin Total 0.5 mg/dL (0.0-1.0); Blood Urea Nitrogen 32 mg/dL (9-16); Calcium 8.4 mg/dL (8.4-10.2); Carbon Dioxide 22 mmol/L (22-29); Chloride 108 mmol/L (96-108); Estimated Glomerular Filt Rate 52; Glucose Random 75 mg/dL (60-115); Potassium 3.7 mmol/L (3.3-5.1); Sodium 141 mmol/L (135-145); Total Protein 7.2 g/dL (6.5-8.0)
== END 2021-01-13 13:41 | disposition home or self-care (01) ==
LOC: HO.LHD 13:40
PROVIDERS: Visit Provider Internal Medicine Medical Oncology
DX: C50.919 Malignant neoplasm of unspecified site of unspecified female breast (principal); D64.9 Anemia, unspecified
CPT/HCPCS: 36415; 80053; 85025

== ENCOUNTER 2021-01-20 13:17 | Outpatient (REF) | payer MEDICARE, SELFPAY ==
[2021-01-20 10:58] LABS: MANUAL DIFF FLAG NO
[2021-01-20 11:03] LABS: Basophils Percent Auto 0.3 % (0-2); Hematocrit 32.2 % (37.0-47.0); Hemoglobin 9.9 g/dl (12.0-16.0); Imm Gran Abs Auto 0.02 X10*3/uL (0.00-0.03); Imm Gran Pct Auto 0.3 % (0.0-0.4); Lymphocytes Absolute Auto 0.8 X10*3/uL (1.2-4.9); Lymphocytes Percent Auto 13.1 % (20-40); Mean Corpuscular HGB Conc 30.7 g/dl (31.0-35.0); Mean Corpuscular Hemoglobin 27.5 pg (27.0-33.0); Mean Corpuscular Volume 89.4 fL (80.0-98.0); Mean Platelet Volume 9.4 fL (9.4-12.3); Monocytes Absolute Auto 0.3 X10*3/uL (0.1-1.2); Monocytes Percent Auto 5.2 % (2-11); Neutrophils Absolute Auto 4.8 x10*3/uL (2.0-8.3); Neutrophils Percent Auto 81.1 % (45-73); Platelet Count 184 X10*3/uL (160-400); Red Cell Distribution Width 16.9 % (11.0-16.0)
[2021-01-20 11:33] LABS: Alanine Aminotransferase 6 U/L (0-31); Albumin Level 3.5 g/dL (3.5-5.0); Alkaline Phosphatase 75 U/L (39-117); Anion Gap 11 (12-20); Aspartate Amino Transferase 8 U/L (5-31); Bilirubin Total 0.5 mg/dL (0.0-1.0); Blood Urea Nitrogen 20 mg/dL (9-16); Calcium 8.3 mg/dL (8.4-10.2); Carbon Dioxide 25 mmol/L (22-29); Chloride 109 mmol/L (96-108); Estimated Glomerular Filt Rate 48; Glucose Random 78 mg/dL (60-115); Potassium 3.8 mmol/L (3.3-5.1); Sodium 141 mmol/L (135-145); Total Protein 7.1 g/dL (6.5-8.0)
== END 2021-01-20 13:18 | disposition home or self-care (01) ==
LOC: HO.LHD 13:17
PROVIDERS: Visit Provider Internal Medicine Medical Oncology
DX: D64.9 Anemia, unspecified (principal); Z85.3 Personal history of malignant neoplasm of breast
CPT/HCPCS: 36415; 80053; 85025; 99212

== ENCOUNTER 2021-01-27 10:48 | Outpatient (REF) | payer MEDICARE, SELFPAY ==
[2021-01-27 09:59] LABS: MANUAL DIFF FLAG NO
[2021-01-27 10:07] LABS: Basophils Percent Auto 0.5 % (0-2); Hematocrit 31.7 % (37.0-47.0); Hemoglobin 9.7 g/dl (12.0-16.0); Imm Gran Abs Auto 0.02 X10*3/uL (0.00-0.03); Imm Gran Pct Auto 0.5 % (0.0-0.4); Lymphocytes Absolute Auto 0.5 X10*3/uL (1.2-4.9); Mean Corpuscular HGB Conc 30.6 g/dl (31.0-35.0); Mean Corpuscular Hemoglobin 27.9 pg (27.0-33.0); Mean Corpuscular Volume 91.1 fL (80.0-98.0); Mean Platelet Volume 9.8 fL (9.4-12.3); Monocytes Absolute Auto 0.2 X10*3/uL (0.1-1.2); Monocytes Percent Auto 5.2 % (2-11); Neutrophils Absolute Auto 3.6 x10*3/uL (2.0-8.3); Neutrophils Percent Auto 81.8 % (45-73); Platelet Count 150 X10*3/uL (160-400); Red Blood Count 3.48 X10*6/uL (4.20-5.50); Red Cell Distribution Width 18.2 % (11.0-16.0); White Blood Count 4.4 X10*3/uL (4.8-10.8)
[2021-01-27 10:48] LABS: Alanine Aminotransferase < 6 U/L (0-31); Albumin Level 3.2 g/dL (3.5-5.0); Alkaline Phosphatase 70 U/L (39-117); Anion Gap 10 (12-20); Aspartate Amino Transferase 6 U/L (5-31); Bilirubin Total 0.5 mg/dL (0.0-1.0); Blood Urea Nitrogen 22 mg/dL (9-16); Carbon Dioxide 27 mmol/L (22-29); Chloride 106 mmol/L (96-108); Estimated Glomerular Filt Rate 50; Glucose Random 104 mg/dL (60-115); Potassium 3.7 mmol/L (3.3-5.1); Sodium 139 mmol/L (135-145); Total Protein 6.4 g/dL (6.5-8.0)
== END 2021-01-27 10:49 | disposition home or self-care (01) ==
LOC: HO.LHD 10:48
PROVIDERS: Visit Provider Internal Medicine Medical Oncology
DX: D64.9 Anemia, unspecified (principal); C50.919 Malignant neoplasm of unspecified site of unspecified female breast
CPT/HCPCS: 36415; 80053; 85025

== ENCOUNTER 2021-02-03 07:09 | Outpatient (REF) | payer MEDICARE, SELFPAY ==
[2021-02-03 10:44] LABS: MANUAL DIFF FLAG NO
[2021-02-03 10:55] LABS: Basophils Percent Auto 0.8 % (0-2); Hematocrit 36.3 % (37.0-47.0); Hemoglobin 10.9 g/dl (12.0-16.0); Imm Gran Abs Auto 0.02 X10*3/uL (0.00-0.03); Imm Gran Pct Auto 0.4 % (0.0-0.4); Lymphocytes Absolute Auto 0.7 X10*3/uL (1.2-4.9); Lymphocytes Percent Auto 13.4 % (20-40); Mean Corpuscular Hemoglobin 27.3 pg (27.0-33.0); Mean Platelet Volume 9.7 fL (9.4-12.3); Monocytes Absolute Auto 0.3 X10*3/uL (0.1-1.2); Monocytes Percent Auto 5.5 % (2-11); Neutrophils Absolute Auto 4.1 x10*3/uL (2.0-8.3); Neutrophils Percent Auto 79.9 % (45-73); Platelet Count 176 X10*3/uL (160-400); Red Blood Count 3.99 X10*6/uL (4.20-5.50); Red Cell Distribution Width 17.4 % (11.0-16.0); White Blood Count 5.1 X10*3/uL (4.8-10.8)
[2021-02-03 11:21] LABS: Alanine Aminotransferase 6 U/L (0-31); Albumin Level 3.5 g/dL (3.5-5.0); Alkaline Phosphatase 76 U/L (39-117); Anion Gap 11 (12-20); Aspartate Amino Transferase 8 U/L (5-31); Bilirubin Total 0.6 mg/dL (0.0-1.0); Blood Urea Nitrogen 24 mg/dL (9-16); Calcium 8.4 mg/dL (8.4-10.2); Carbon Dioxide 28 mmol/L (22-29); Chloride 107 mmol/L (96-108); Estimated Glomerular Filt Rate 46; Glucose Random 106 mg/dL (60-115); Potassium 3.6 mmol/L (3.3-5.1); Sodium 142 mmol/L (135-145); Total Protein 7.2 g/dL (6.5-8.0)
--- NOTE | 2021-02-03 14:47 | MHC.HEMONC ---
HGB 10.9 today. Pt called. No Procrit needed this week.She will have labs repeated next week.
== END 2021-02-03 07:10 | disposition home or self-care (01) ==
LOC: HO.LHD 07:09
PROVIDERS: Visit Provider Internal Medicine Medical Oncology
DX: N18.9 Chronic kidney disease, unspecified (principal); D63.1 Anemia in chronic kidney disease; C50.919 Malignant neoplasm of unspecified site of unspecified female breast
CPT/HCPCS: 36415; 80053; 85025

== ENCOUNTER 2021-02-10 12:33 | Outpatient (REF) | payer MEDICARE, SELFPAY ==
[2021-02-10 09:51] LABS: MANUAL DIFF FLAG NO
[2021-02-10 09:59] LABS: Basophils Percent Auto 0.4 % (0-2); Hematocrit 38.9 % (37.0-47.0); Hemoglobin 11.7 g/dl (12.0-16.0); Imm Gran Abs Auto 0.03 X10*3/uL (0.00-0.03); Imm Gran Pct Auto 0.4 % (0.0-0.4); Lymphocytes Absolute Auto 0.8 X10*3/uL (1.2-4.9); Lymphocytes Percent Auto 11.2 % (20-40); Mean Corpuscular HGB Conc 30.1 g/dl (31.0-35.0); Mean Corpuscular Hemoglobin 27.1 pg (27.0-33.0); Mean Corpuscular Volume 90.3 fL (80.0-98.0); Mean Platelet Volume 9.6 fL (9.4-12.3); Monocytes Absolute Auto 0.4 X10*3/uL (0.1-1.2); Monocytes Percent Auto 5.1 % (2-11); Neutrophils Absolute Auto 5.7 x10*3/uL (2.0-8.3); Neutrophils Percent Auto 82.9 % (45-73); Platelet Count 192 X10*3/uL (160-400); Red Blood Count 4.31 X10*6/uL (4.20-5.50); White Blood Count 6.9 X10*3/uL (4.8-10.8)
[2021-02-10 10:53] LABS: Alanine Aminotransferase < 6 U/L (0-31); Albumin Level 3.7 g/dL (3.5-5.0); Alkaline Phosphatase 86 U/L (39-117); Anion Gap 11 (12-20); Aspartate Amino Transferase 8 U/L (5-31); Bilirubin Total 0.7 mg/dL (0.0-1.0); Blood Urea Nitrogen 23 mg/dL (9-16); Carbon Dioxide 27 mmol/L (22-29); Chloride 108 mmol/L (96-108); Estimated Glomerular Filt Rate 46; Glucose Random 103 mg/dL (60-115); Potassium 3.7 mmol/L (3.3-5.1); Sodium 142 mmol/L (135-145); Total Protein 7.6 g/dL (6.5-8.0)
== END 2021-02-10 12:34 | disposition home or self-care (01) ==
LOC: HO.LHD 12:33
PROVIDERS: Visit Provider Internal Medicine Medical Oncology
DX: D64.9 Anemia, unspecified (principal); C50.919 Malignant neoplasm of unspecified site of unspecified female breast
CPT/HCPCS: 36415; 80053; 85025

== ENCOUNTER 2021-02-17 12:30 | Outpatient (REF) | payer MEDICARE, SELFPAY ==
[2021-02-17 10:51] LABS: MANUAL DIFF FLAG NO
[2021-02-17 10:53] LABS: Basophils Percent Auto 0.7 % (0-2); Eosinophils Percent Auto 0.2 % (0-4); Hematocrit 38.6 % (37.0-47.0); Hemoglobin 11.7 g/dl (12.0-16.0); Imm Gran Abs Auto 0.03 X10*3/uL (0.00-0.03); Imm Gran Pct Auto 0.5 % (0.0-0.4); Lymphocytes Absolute Auto 0.9 X10*3/uL (1.2-4.9); Lymphocytes Percent Auto 15.2 % (20-40); Mean Corpuscular HGB Conc 30.3 g/dl (31.0-35.0); Mean Corpuscular Hemoglobin 27.1 pg (27.0-33.0); Mean Corpuscular Volume 89.4 fL (80.0-98.0); Mean Platelet Volume 9.4 fL (9.4-12.3); Monocytes Absolute Auto 0.3 X10*3/uL (0.1-1.2); Monocytes Percent Auto 5.2 % (2-11); Neutrophils Absolute Auto 4.7 x10*3/uL (2.0-8.3); Neutrophils Percent Auto 78.2 % (45-73); Platelet Count 202 X10*3/uL (160-400); Red Blood Count 4.32 X10*6/uL (4.20-5.50); Red Cell Distribution Width 15.4 % (11.0-16.0)
[2021-02-17 11:26] LABS: Alanine Aminotransferase < 6 U/L (0-31); Albumin Level 3.7 g/dL (3.5-5.0); Alkaline Phosphatase 78 U/L (39-117); Anion Gap 10 (12-20); Aspartate Amino Transferase 9 U/L (5-31); Bilirubin Total 0.7 mg/dL (0.0-1.0); Blood Urea Nitrogen 22 mg/dL (9-16); Calcium 9.1 mg/dL (8.4-10.2); Carbon Dioxide 27 mmol/L (22-29); Chloride 107 mmol/L (96-108); Estimated Glomerular Filt Rate 48; Glucose Random 95 mg/dL (60-115); Potassium 4.1 mmol/L (3.3-5.1); Sodium 140 mmol/L (135-145); Total Protein 7.5 g/dL (6.5-8.0)
--- NOTE | 2021-02-17 16:03 | MHC.HEMONC ---
pt hgb 11.7. She is aware. No procrit needed.
== END 2021-02-17 12:31 | disposition home or self-care (01) ==
LOC: HO.LHD 12:30
PROVIDERS: Visit Provider Internal Medicine Medical Oncology
DX: D64.9 Anemia, unspecified (principal); C50.919 Malignant neoplasm of unspecified site of unspecified female breast
CPT/HCPCS: 36415; 80053; 85025

== ENCOUNTER 2021-02-22 13:00 | Outpatient (RCR) | payer MEDICARE, SELFPAY | END 2021-07-19 12:02 | disposition home or self-care (01) | LOC: HO.PTCHIC 13:00 | PROVIDERS: PCP Internal Medicine; Visit Provider Orthopaedic Surgery | DX: S72.092D Other fracture of head and neck of left femur, subsequent encounter for closed fracture with routine healing (principal) | CPT/HCPCS: 97110; 97162 ==

== ENCOUNTER 2021-02-24 07:12 | Outpatient (REF) | payer MEDICARE, SELFPAY ==
[2021-02-24 11:14] LABS: Hematocrit 34.1 % (37.0-47.0); Hemoglobin 10.4 g/dl (12.0-16.0); Mean Corpuscular HGB Conc 30.5 g/dl (31.0-35.0); Mean Corpuscular Hemoglobin 26.9 pg (27.0-33.0); Mean Corpuscular Volume 88.3 fL (80.0-98.0); Mean Platelet Volume 9.6 fL (9.4-12.3); Platelet Count 175 X10*3/uL (160-400); Red Blood Count 3.86 X10*6/uL (4.20-5.50); Red Cell Distribution Width 15.7 % (11.0-16.0); White Blood Count 6.4 X10*3/uL (4.8-10.8)
[2021-02-24 11:31] LABS: Alanine Aminotransferase < 6 U/L (0-31); Albumin Level 3.7 g/dL (3.5-5.0); Alkaline Phosphatase 78 U/L (39-117); Anion Gap 12 (12-20); Aspartate Amino Transferase 8 U/L (5-31); Bilirubin Total 0.6 mg/dL (0.0-1.0); Blood Urea Nitrogen 27 mg/dL (9-16); Calcium 8.7 mg/dL (8.4-10.2); Carbon Dioxide 24 mmol/L (22-29); Chloride 107 mmol/L (96-108); Estimated Glomerular Filt Rate 46; Glucose Random 93 mg/dL (60-115); Potassium 3.8 mmol/L (3.3-5.1); Sodium 139 mmol/L (135-145); Total Protein 7.4 g/dL (6.5-8.0)
== END 2021-02-24 07:13 | disposition home or self-care (01) ==
LOC: HO.LHD 07:12
PROVIDERS: Visit Provider Internal Medicine Medical Oncology
DX: D64.9 Anemia, unspecified (principal); C50.919 Malignant neoplasm of unspecified site of unspecified female breast
CPT/HCPCS: 36415; 80053; 85027

== ENCOUNTER 2021-03-03 05:58 | Outpatient (REF) | payer MEDICARE, SELFPAY ==
[2021-03-03 11:17] LABS: Hematocrit 32.4 % (37.0-47.0); Hemoglobin 10.1 g/dl (12.0-16.0); Mean Corpuscular HGB Conc 31.2 g/dl (31.0-35.0); Mean Corpuscular Hemoglobin 27.2 pg (27.0-33.0); Mean Corpuscular Volume 87.1 fL (80.0-98.0); Mean Platelet Volume 9.8 fL (9.4-12.3); Platelet Count 161 X10*3/uL (160-400); Red Blood Count 3.72 X10*6/uL (4.20-5.50); Red Cell Distribution Width 15.9 % (11.0-16.0); White Blood Count 6.5 X10*3/uL (4.8-10.8)
[2021-03-03 11:36] LABS: Alanine Aminotransferase < 6 U/L (0-31); Albumin Level 3.5 g/dL (3.5-5.0); Alkaline Phosphatase 80 U/L (39-117); Anion Gap 12 (12-20); Aspartate Amino Transferase 8 U/L (5-31); Bilirubin Total 0.6 mg/dL (0.0-1.0); Blood Urea Nitrogen 26 mg/dL (9-16); Calcium 8.9 mg/dL (8.4-10.2); Carbon Dioxide 26 mmol/L (22-29); Chloride 107 mmol/L (96-108); Estimated Glomerular Filt Rate 45; Glucose Random 106 mg/dL (60-115); Potassium 3.6 mmol/L (3.3-5.1); Sodium 141 mmol/L (135-145); Total Protein 7.3 g/dL (6.5-8.0)
== END 2021-03-03 05:59 | disposition home or self-care (01) ==
LOC: HO.LHD 05:58
PROVIDERS: Visit Provider Internal Medicine Medical Oncology
DX: D64.9 Anemia, unspecified (principal); C50.919 Malignant neoplasm of unspecified site of unspecified female breast
CPT/HCPCS: 36415; 80053; 85027

== ENCOUNTER 2021-03-10 10:42 | Outpatient (REF) | payer MEDICARE, SELFPAY ==
[2021-03-10 10:16] LABS: MANUAL DIFF FLAG NO
[2021-03-10 10:19] LABS: Basophils Percent Auto 0.2 % (0-2); Hematocrit 29.4 % (37.0-47.0); Hemoglobin 9.1 g/dl (12.0-16.0); Imm Gran Abs Auto 0.03 X10*3/uL (0.00-0.03); Imm Gran Pct Auto 0.6 % (0.0-0.4); Lymphocytes Absolute Auto 0.8 X10*3/uL (1.2-4.9); Lymphocytes Percent Auto 14.3 % (20-40); Mean Corpuscular Hemoglobin 27.5 pg (27.0-33.0); Mean Corpuscular Volume 88.8 fL (80.0-98.0); Mean Platelet Volume 9.5 fL (9.4-12.3); Monocytes Absolute Auto 0.3 X10*3/uL (0.1-1.2); Monocytes Percent Auto 6.3 % (2-11); Neutrophils Absolute Auto 4.3 x10*3/uL (2.0-8.3); Neutrophils Percent Auto 78.6 % (45-73); Platelet Count 161 X10*3/uL (160-400); Red Blood Count 3.31 X10*6/uL (4.20-5.50); Red Cell Distribution Width 16.9 % (11.0-16.0); White Blood Count 5.4 X10*3/uL (4.8-10.8)
[2021-03-10 11:08] LABS: Alanine Aminotransferase < 6 U/L (0-31); Albumin Level 3.4 g/dL (3.5-5.0); Alkaline Phosphatase 75 U/L (39-117); Anion Gap 9 (12-20); Aspartate Amino Transferase 7 U/L (5-31); Bilirubin Total 0.7 mg/dL (0.0-1.0); Blood Urea Nitrogen 20 mg/dL (9-16); Calcium 8.9 mg/dL (8.4-10.2); Carbon Dioxide 28 mmol/L (22-29); Chloride 108 mmol/L (96-108); Estimated Glomerular Filt Rate 43; Glucose Random 85 mg/dL (60-115); Potassium 3.9 mmol/L (3.3-5.1); Sodium 141 mmol/L (135-145); Total Protein 6.9 g/dL (6.5-8.0)
[2021-03-10 11:31] LABS: Ferritin 153 ng/mL (10-250)
== END 2021-03-10 10:43 | disposition home or self-care (01) ==
LOC: HO.LHD 10:42
PROVIDERS: Visit Provider Internal Medicine Medical Oncology
DX: N18.9 Chronic kidney disease, unspecified (principal); D63.1 Anemia in chronic kidney disease; C50.919 Malignant neoplasm of unspecified site of unspecified female breast
CPT/HCPCS: 36415; 80053; 82728; 85025

== ENCOUNTER 2021-03-17 10:46 | Outpatient (REF) | payer MEDICARE, SELFPAY ==
[2021-03-17 11:21] LABS: Basophils Percent Auto 0.4 % (0-2); Hematocrit 35.3 % (37.0-47.0); Hemoglobin 10.8 g/dl (12.0-16.0); Imm Gran Abs Auto 0.02 X10*3/uL (0.00-0.03); Imm Gran Pct Auto 0.4 % (0.0-0.4); Lymphocytes Absolute Auto 0.7 X10*3/uL (1.2-4.9); Lymphocytes Percent Auto 12.4 % (20-40); MANUAL DIFF FLAG NO; Mean Corpuscular HGB Conc 30.6 g/dl (31.0-35.0); Mean Corpuscular Hemoglobin 27.9 pg (27.0-33.0); Mean Corpuscular Volume 91.2 fL (80.0-98.0); Mean Platelet Volume 9.2 fL (9.4-12.3); Monocytes Absolute Auto 0.3 X10*3/uL (0.1-1.2); Monocytes Percent Auto 5.8 % (2-11); Neutrophils Absolute Auto 4.5 x10*3/uL (2.0-8.3); Platelet Count 197 X10*3/uL (160-400); Red Blood Count 3.87 X10*6/uL (4.20-5.50); White Blood Count 5.6 X10*3/uL (4.8-10.8)
[2021-03-17 11:55] LABS: Alanine Aminotransferase 7 U/L (0-31); Albumin Level 3.7 g/dL (3.5-5.0); Alkaline Phosphatase 77 U/L (39-117); Anion Gap 11 (12-20); Aspartate Amino Transferase 7 U/L (5-31); Bilirubin Total 0.7 mg/dL (0.0-1.0); Blood Urea Nitrogen 18 mg/dL (9-16); Carbon Dioxide 26 mmol/L (22-29); Chloride 109 mmol/L (96-108); Estimated Glomerular Filt Rate 43; Glucose Random 77 mg/dL (60-115); Sodium 142 mmol/L (135-145); Total Protein 7.5 g/dL (6.5-8.0)
[2021-03-17 12:05] LABS: Ferritin 107 ng/mL (10-250)
[2021-03-18 09:06] LABS: CA 27.29 23 U/mL (<38)
[2021-03-18 14:44] LABS: Iron 27 mcg/dL (30-160); Percent Iron Saturation 12 % (15-50); Total Iron Binding Capacity 222 mcg/dL (228-428); Unsaturated Iron Binding 195 ug/dL
== END 2021-03-17 10:47 | disposition home or self-care (01) ==
LOC: HO.LHD 10:46
PROVIDERS: Visit Provider Internal Medicine Medical Oncology
DX: D64.9 Anemia, unspecified (principal); Z85.3 Personal history of malignant neoplasm of breast
CPT/HCPCS: 36415; 80053; 82728; 83540; 85025; 86300

== ENCOUNTER 2021-03-25 11:16 | Outpatient (REF) | payer MEDICARE, SELFPAY ==
[2021-03-24 11:39] LABS: MANUAL DIFF FLAG NO
[2021-03-24 11:44] LABS: Basophils Percent Auto 0.5 % (0-2); Hematocrit 37.2 % (37.0-47.0); Hemoglobin 11.4 g/dl (12.0-16.0); Imm Gran Abs Auto 0.02 X10*3/uL (0.00-0.03); Imm Gran Pct Auto 0.3 % (0.0-0.4); Lymphocytes Absolute Auto 0.6 X10*3/uL (1.2-4.9); Lymphocytes Percent Auto 10.6 % (20-40); Mean Corpuscular HGB Conc 30.6 g/dl (31.0-35.0); Mean Corpuscular Hemoglobin 27.2 pg (27.0-33.0); Mean Corpuscular Volume 88.8 fL (80.0-98.0); Monocytes Absolute Auto 0.3 X10*3/uL (0.1-1.2); Monocytes Percent Auto 5.6 % (2-11); Platelet Count 197 X10*3/uL (160-400); Red Blood Count 4.19 X10*6/uL (4.20-5.50); Red Cell Distribution Width 16.4 % (11.0-16.0); White Blood Count 6.1 X10*3/uL (4.8-10.8)
[2021-03-24 12:41] LABS: Alanine Aminotransferase < 6 U/L (0-31); Albumin Level 3.8 g/dL (3.5-5.0); Alkaline Phosphatase 81 U/L (39-117); Anion Gap 12 (12-20); Aspartate Amino Transferase 7 U/L (5-31); Bilirubin Total 0.8 mg/dL (0.0-1.0); Blood Urea Nitrogen 21 mg/dL (9-16); Carbon Dioxide 25 mmol/L (22-29); Chloride 107 mmol/L (96-108); Estimated Glomerular Filt Rate 45; Glucose Random 94 mg/dL (60-115); Iron 27 mcg/dL (30-160); Percent Iron Saturation 11 % (15-50); Potassium 4.1 mmol/L (3.3-5.1); Sodium 140 mmol/L (135-145); Total Iron Binding Capacity 242 mcg/dL (228-428); Total Protein 7.8 g/dL (6.5-8.0); Unsaturated Iron Binding 215 ug/dL
[2021-03-24 13:01] LABS: Ferritin 207 ng/mL (10-250)
== END 2021-03-25 11:17 | disposition home or self-care (01) ==
LOC: HO.LHD 11:16
PROVIDERS: Visit Provider Internal Medicine Medical Oncology
DX: N18.9 Chronic kidney disease, unspecified (principal); D63.1 Anemia in chronic kidney disease; C50.919 Malignant neoplasm of unspecified site of unspecified female breast
CPT/HCPCS: 36415; 80053; 82728; 83540; 85025

== ENCOUNTER 2021-03-31 11:41 | Outpatient (REF) | payer MEDICARE, SELFPAY ==
[2021-03-31 12:16] LABS: MANUAL DIFF FLAG NO
[2021-03-31 12:19] LABS: Basophils Percent Auto 0.5 % (0-2); Hematocrit 31.7 % (37.0-47.0); Hemoglobin 9.6 g/dl (12.0-16.0); Imm Gran Abs Auto 0.02 X10*3/uL (0.00-0.03); Imm Gran Pct Auto 0.5 % (0.0-0.4); Lymphocytes Absolute Auto 0.8 X10*3/uL (1.2-4.9); Lymphocytes Percent Auto 18.7 % (20-40); Mean Corpuscular HGB Conc 30.3 g/dl (31.0-35.0); Mean Corpuscular Hemoglobin 26.5 pg (27.0-33.0); Mean Corpuscular Volume 87.6 fL (80.0-98.0); Mean Platelet Volume 8.4 fL (9.4-12.3); Monocytes Absolute Auto 0.2 X10*3/uL (0.1-1.2); Monocytes Percent Auto 5.5 % (2-11); Neutrophils Absolute Auto 3.3 x10*3/uL (2.0-8.3); Neutrophils Percent Auto 74.8 % (45-73); Platelet Count 141 X10*3/uL (160-400); Red Blood Count 3.62 X10*6/uL (4.20-5.50); Red Cell Distribution Width 15.8 % (11.0-16.0); White Blood Count 4.4 X10*3/uL (4.8-10.8)
[2021-03-31 12:40] LABS: Alanine Aminotransferase < 6 U/L (0-31); Albumin Level 3.4 g/dL (3.5-5.0); Alkaline Phosphatase 77 U/L (39-117); Anion Gap 9 (12-20); Aspartate Amino Transferase 6 U/L (5-31); Bilirubin Total 0.6 mg/dL (0.0-1.0); Blood Urea Nitrogen 20 mg/dL (9-16); Calcium 8.5 mg/dL (8.4-10.2); Carbon Dioxide 27 mmol/L (22-29); Chloride 107 mmol/L (96-108); Estimated Glomerular Filt Rate 49; Glucose Random 86 mg/dL (60-115); Potassium 3.7 mmol/L (3.3-5.1); Sodium 139 mmol/L (135-145); Total Protein 7.1 g/dL (6.5-8.0)
== END 2021-03-31 11:42 | disposition home or self-care (01) ==
LOC: HO.LAB 11:41
PROVIDERS: PCP Internal Medicine; Visit Provider Internal Medicine Medical Oncology
DX: N18.9 Chronic kidney disease, unspecified (principal); D63.1 Anemia in chronic kidney disease
CPT/HCPCS: 36415; 80053; 85025

== ENCOUNTER 2021-04-07 12:01 | Outpatient (REF) | payer MEDICARE, SELFPAY ==
[2021-04-07 12:28] LABS: MANUAL DIFF FLAG NO
[2021-04-07 12:33] LABS: Basophils Percent Auto 0.5 % (0-2); Hematocrit 34.4 % (37.0-47.0); Hemoglobin 10.6 g/dl (12.0-16.0); Imm Gran Abs Auto 0.03 X10*3/uL (0.00-0.03); Imm Gran Pct Auto 0.5 % (0.0-0.4); Lymphocytes Absolute Auto 0.8 X10*3/uL (1.2-4.9); Lymphocytes Percent Auto 11.8 % (20-40); Mean Corpuscular HGB Conc 30.8 g/dl (31.0-35.0); Mean Corpuscular Volume 87.8 fL (80.0-98.0); Mean Platelet Volume 9.8 fL (9.4-12.3); Monocytes Absolute Auto 0.3 X10*3/uL (0.1-1.2); Neutrophils Absolute Auto 5.4 x10*3/uL (2.0-8.3); Neutrophils Percent Auto 82.2 % (45-73); Platelet Count 199 X10*3/uL (160-400); Red Blood Count 3.92 X10*6/uL (4.20-5.50); Red Cell Distribution Width 17.2 % (11.0-16.0); White Blood Count 6.6 X10*3/uL (4.8-10.8)
[2021-04-07 12:46] LABS: Alanine Aminotransferase < 6 U/L (0-31); Albumin Level 3.5 g/dL (3.5-5.0); Alkaline Phosphatase 79 U/L (39-117); Anion Gap 13 (12-20); Aspartate Amino Transferase 8 U/L (5-31); Bilirubin Total 0.5 mg/dL (0.0-1.0); Blood Urea Nitrogen 18 mg/dL (9-16); Calcium 8.9 mg/dL (8.4-10.2); Carbon Dioxide 25 mmol/L (22-29); Chloride 107 mmol/L (96-108); Estimated Glomerular Filt Rate 44; Glucose Random 94 mg/dL (60-115); Potassium 3.7 mmol/L (3.3-5.1); Sodium 141 mmol/L (135-145); Total Protein 7.5 g/dL (6.5-8.0)
== END 2021-04-07 12:02 | disposition home or self-care (01) ==
LOC: HO.LHD 12:01
PROVIDERS: Visit Provider Internal Medicine Medical Oncology
DX: C50.919 Malignant neoplasm of unspecified site of unspecified female breast (principal); D64.9 Anemia, unspecified
CPT/HCPCS: 36415; 80053; 85025

== ENCOUNTER 2021-04-14 12:05 | Outpatient (REF) | payer MEDICARE, SELFPAY ==
[2021-04-14 12:25] LABS: MANUAL DIFF FLAG NO
[2021-04-14 12:35] LABS: Basophils Percent Auto 0.5 % (0-2); Hematocrit 33.6 % (37.0-47.0); Hemoglobin 10.2 g/dl (12.0-16.0); Imm Gran Abs Auto 0.02 X10*3/uL (0.00-0.03); Imm Gran Pct Auto 0.3 % (0.0-0.4); Lymphocytes Absolute Auto 0.8 X10*3/uL (1.2-4.9); Mean Corpuscular HGB Conc 30.4 g/dl (31.0-35.0); Mean Corpuscular Hemoglobin 27.1 pg (27.0-33.0); Mean Corpuscular Volume 89.4 fL (80.0-98.0); Mean Platelet Volume 9.4 fL (9.4-12.3); Monocytes Absolute Auto 0.3 X10*3/uL (0.1-1.2); Monocytes Percent Auto 5.7 % (2-11); Neutrophils Absolute Auto 4.7 x10*3/uL (2.0-8.3); Neutrophils Percent Auto 80.5 % (45-73); Platelet Count 177 X10*3/uL (160-400); Red Blood Count 3.76 X10*6/uL (4.20-5.50); Red Cell Distribution Width 16.8 % (11.0-16.0); White Blood Count 5.8 X10*3/uL (4.8-10.8)
[2021-04-14 13:18] LABS: Alanine Aminotransferase < 6 U/L (0-31); Albumin Level 3.4 g/dL (3.5-5.0); Alkaline Phosphatase 76 U/L (39-117); Anion Gap 11 (12-20); Aspartate Amino Transferase 7 U/L (5-31); Bilirubin Total 0.6 mg/dL (0.0-1.0); Blood Urea Nitrogen 26 mg/dL (9-16); Calcium 8.9 mg/dL (8.4-10.2); Carbon Dioxide 30 mmol/L (22-29); Chloride 104 mmol/L (96-108); Estimated Glomerular Filt Rate 40; Glucose Random 121 mg/dL (60-115); Potassium 3.8 mmol/L (3.3-5.1); Sodium 141 mmol/L (135-145); Total Protein 7.2 g/dL (6.5-8.0)
== END 2021-04-14 12:06 | disposition home or self-care (01) ==
LOC: HO.LHD 12:05
PROVIDERS: Visit Provider Internal Medicine Medical Oncology
DX: D64.9 Anemia, unspecified (principal); C50.919 Malignant neoplasm of unspecified site of unspecified female breast
CPT/HCPCS: 36415; 80053; 85025

== ENCOUNTER 2021-04-21 06:57 | Outpatient (REF) | payer MEDICARE, SELFPAY ==
[2021-04-21 13:22] LABS: Hematocrit 32.2 % (37.0-47.0); Hemoglobin 9.9 g/dl (12.0-16.0); Mean Corpuscular HGB Conc 30.7 g/dl (31.0-35.0); Mean Corpuscular Hemoglobin 27.2 pg (27.0-33.0); Mean Corpuscular Volume 88.5 fL (80.0-98.0); Mean Platelet Volume 9.1 fL (9.4-12.3); Platelet Count 209 X10*3/uL (160-400); Red Blood Count 3.64 X10*6/uL (4.20-5.50); Red Cell Distribution Width 17.2 % (11.0-16.0); White Blood Count 4.7 X10*3/uL (4.8-10.8)
[2021-04-21 14:07] LABS: Alanine Aminotransferase < 6 U/L (0-31); Albumin Level 3.3 g/dL (3.5-5.0); Alkaline Phosphatase 81 U/L (39-117); Anion Gap 10 (12-20); Aspartate Amino Transferase 7 U/L (5-31); Bilirubin Total 0.5 mg/dL (0.0-1.0); Carbon Dioxide 29 mmol/L (22-29); Chloride 103 mmol/L (96-108); Estimated Glomerular Filt Rate 45; Glucose Random 144 mg/dL (60-115); Potassium 3.8 mmol/L (3.3-5.1); Sodium 138 mmol/L (135-145)
[2021-04-21 15:09] LABS: Blood Urea Nitrogen 23 mg/dL (9-16); Calcium 8.6 mg/dL (8.4-10.2)
== END 2021-04-21 06:58 | disposition home or self-care (01) ==
LOC: HO.LHD 06:57
PROVIDERS: Visit Provider Internal Medicine Medical Oncology
DX: D64.9 Anemia, unspecified (principal); C50.919 Malignant neoplasm of unspecified site of unspecified female breast
CPT/HCPCS: 36415; 80053; 85027

== ENCOUNTER 2021-04-28 12:57 | Outpatient (REF) | payer MEDICARE, SELFPAY ==
[2021-04-28 10:46] LABS: MANUAL DIFF FLAG NO
[2021-04-28 10:51] LABS: Basophils Percent Auto 0.5 % (0-2); Hematocrit 31.3 % (37.0-47.0); Hemoglobin 9.6 g/dl (12.0-16.0); Imm Gran Abs Auto 0.02 X10*3/uL (0.00-0.03); Imm Gran Pct Auto 0.3 % (0.0-0.4); Lymphocytes Absolute Auto 0.7 X10*3/uL (1.2-4.9); Lymphocytes Percent Auto 11.4 % (20-40); Mean Corpuscular HGB Conc 30.7 g/dl (31.0-35.0); Mean Corpuscular Hemoglobin 27.2 pg (27.0-33.0); Mean Corpuscular Volume 88.7 fL (80.0-98.0); Mean Platelet Volume 9.4 fL (9.4-12.3); Monocytes Absolute Auto 0.3 X10*3/uL (0.1-1.2); Monocytes Percent Auto 4.3 % (2-11); Neutrophils Percent Auto 83.5 % (45-73); Platelet Count 165 X10*3/uL (160-400); Red Blood Count 3.53 X10*6/uL (4.20-5.50)
[2021-04-28 11:46] LABS: Alanine Aminotransferase < 6 U/L (0-31); Albumin Level 2.9 g/dL (3.5-5.0); Alkaline Phosphatase 72 U/L (39-117); Anion Gap 10 (12-20); Aspartate Amino Transferase 6 U/L (5-31); Bilirubin Total 0.4 mg/dL (0.0-1.0); Blood Urea Nitrogen 16 mg/dL (9-16); Calcium 8.4 mg/dL (8.4-10.2); Carbon Dioxide 28 mmol/L (22-29); Chloride 104 mmol/L (96-108); Estimated Glomerular Filt Rate 47; Glucose Random 151 mg/dL (60-115); Potassium 4.2 mmol/L (3.3-5.1); Sodium 138 mmol/L (135-145); Total Protein 6.2 g/dL (6.5-8.0)
== END 2021-04-28 12:58 | disposition home or self-care (01) ==
LOC: HO.LHD 12:57
PROVIDERS: Visit Provider Internal Medicine Medical Oncology
DX: D64.9 Anemia, unspecified (principal); C50.919 Malignant neoplasm of unspecified site of unspecified female breast
CPT/HCPCS: 36415; 80053; 85025

== ENCOUNTER 2021-05-05 11:10 | Outpatient (REF) | payer MEDICARE, SELFPAY ==
[2021-05-05 11:32] LABS: MANUAL DIFF FLAG NO
[2021-05-05 11:35] LABS: Basophils Percent Auto 0.2 % (0-2); Hematocrit 33.1 % (37.0-47.0); Hemoglobin 10.1 g/dl (12.0-16.0); Imm Gran Abs Auto 0.02 X10*3/uL (0.00-0.03); Imm Gran Pct Auto 0.4 % (0.0-0.4); Lymphocytes Absolute Auto 0.5 X10*3/uL (1.2-4.9); Mean Corpuscular HGB Conc 30.5 g/dl (31.0-35.0); Mean Corpuscular Hemoglobin 26.7 pg (27.0-33.0); Mean Corpuscular Volume 87.6 fL (80.0-98.0); Mean Platelet Volume 9.4 fL (9.4-12.3); Monocytes Absolute Auto 0.3 X10*3/uL (0.1-1.2); Monocytes Percent Auto 6.2 % (2-11); Neutrophils Absolute Auto 3.7 x10*3/uL (2.0-8.3); Neutrophils Percent Auto 81.2 % (45-73); Platelet Count 191 X10*3/uL (160-400); Red Blood Count 3.78 X10*6/uL (4.20-5.50); Red Cell Distribution Width 16.8 % (11.0-16.0); White Blood Count 4.5 X10*3/uL (4.8-10.8)
[2021-05-05 12:23] LABS: Alanine Aminotransferase < 6 U/L (0-31); Albumin Level 3.1 g/dL (3.5-5.0); Alkaline Phosphatase 73 U/L (39-117); Anion Gap 12 (12-20); Aspartate Amino Transferase 6 U/L (5-31); Bilirubin Total 0.5 mg/dL (0.0-1.0); Blood Urea Nitrogen 21 mg/dL (9-16); Calcium 8.2 mg/dL (8.4-10.2); Carbon Dioxide 28 mmol/L (22-29); Chloride 101 mmol/L (96-108); Estimated Glomerular Filt Rate 43; Glucose Random 125 mg/dL (60-115); Sodium 137 mmol/L (135-145); Total Protein 6.4 g/dL (6.5-8.0)
== END 2021-05-05 11:11 | disposition home or self-care (01) ==
LOC: HO.LHD 11:10
PROVIDERS: Visit Provider Internal Medicine Medical Oncology
DX: D64.9 Anemia, unspecified (principal)
CPT/HCPCS: 36415; 80053; 85025

== ENCOUNTER 2021-05-12 13:09 | Outpatient (REF) | payer MEDICARE, SELFPAY ==
[2021-05-12 11:41] LABS: MANUAL DIFF FLAG NO
[2021-05-12 11:44] LABS: Basophils Percent Auto 0.3 % (0-2); Hematocrit 41.3 % (37.0-47.0); Hemoglobin 12.3 g/dl (12.0-16.0); Imm Gran Abs Auto 0.03 X10*3/uL (0.00-0.03); Imm Gran Pct Auto 0.3 % (0.0-0.4); Lymphocytes Absolute Auto 0.9 X10*3/uL (1.2-4.9); Lymphocytes Percent Auto 9.8 % (20-40); Mean Corpuscular HGB Conc 29.8 g/dl (31.0-35.0); Mean Corpuscular Volume 87.3 fL (80.0-98.0); Mean Platelet Volume 9.6 fL (9.4-12.3); Monocytes Absolute Auto 0.5 X10*3/uL (0.1-1.2); Monocytes Percent Auto 5.1 % (2-11); Neutrophils Absolute Auto 7.4 x10*3/uL (2.0-8.3); Neutrophils Percent Auto 84.5 % (45-73); Platelet Count 239 X10*3/uL (160-400); Red Blood Count 4.73 X10*6/uL (4.20-5.50); Red Cell Distribution Width 16.4 % (11.0-16.0); White Blood Count 8.7 X10*3/uL (4.8-10.8)
[2021-05-12 12:45] LABS: Alanine Aminotransferase < 6 U/L (0-31); Albumin Level 3.6 g/dL (3.5-5.0); Alkaline Phosphatase 82 U/L (39-117); Anion Gap 11 (12-20); Aspartate Amino Transferase 6 U/L (5-31); Bilirubin Total 0.5 mg/dL (0.0-1.0); Blood Urea Nitrogen 18 mg/dL (9-16); Calcium 8.7 mg/dL (8.4-10.2); Carbon Dioxide 29 mmol/L (22-29); Chloride 103 mmol/L (96-108); Estimated Glomerular Filt Rate 45; Glucose Random 103 mg/dL (60-115); Potassium 3.9 mmol/L (3.3-5.1); Sodium 139 mmol/L (135-145); Total Protein 7.5 g/dL (6.5-8.0)
== END 2021-05-12 13:10 | disposition home or self-care (01) ==
LOC: HO.LHD 13:09
PROVIDERS: Visit Provider Internal Medicine Medical Oncology
DX: D64.9 Anemia, unspecified (principal); C50.919 Malignant neoplasm of unspecified site of unspecified female breast
CPT/HCPCS: 36415; 80053; 85025

== ENCOUNTER 2021-05-21 11:40 | Outpatient (REF) | payer MEDICARE, SELFPAY ==
[2021-05-19 10:43] LABS: MANUAL DIFF FLAG NO
[2021-05-19 10:46] LABS: Basophils Percent Auto 0.4 % (0-2); Hemoglobin 11.6 g/dl (12.0-16.0); Imm Gran Abs Auto 0.02 X10*3/uL (0.00-0.03); Imm Gran Pct Auto 0.3 % (0.0-0.4); Lymphocytes Absolute Auto 0.6 X10*3/uL (1.2-4.9); Lymphocytes Percent Auto 8.3 % (20-40); Mean Corpuscular HGB Conc 30.5 g/dl (31.0-35.0); Mean Platelet Volume 9.3 fL (9.4-12.3); Monocytes Absolute Auto 0.3 X10*3/uL (0.1-1.2); Neutrophils Absolute Auto 6.1 x10*3/uL (2.0-8.3); Platelet Count 197 X10*3/uL (160-400); Red Blood Count 4.47 X10*6/uL (4.20-5.50); Red Cell Distribution Width 15.6 % (11.0-16.0)
[2021-05-19 11:27] LABS: Alanine Aminotransferase < 6 U/L (0-31); Albumin Level 3.5 g/dL (3.5-5.0); Alkaline Phosphatase 80 U/L (39-117); Anion Gap 11 (12-20); Aspartate Amino Transferase 7 U/L (5-31); Bilirubin Total 0.5 mg/dL (0.0-1.0); Blood Urea Nitrogen 20 mg/dL (9-16); Calcium 8.5 mg/dL (8.4-10.2); Carbon Dioxide 27 mmol/L (22-29); Chloride 103 mmol/L (96-108); Estimated Glomerular Filt Rate 47; Glucose Random 116 mg/dL (60-115); Potassium 3.4 mmol/L (3.3-5.1); Sodium 138 mmol/L (135-145); Total Protein 7.2 g/dL (6.5-8.0)
== END 2021-05-21 11:41 | disposition home or self-care (01) ==
LOC: HO.LHD 11:40
PROVIDERS: Visit Provider Internal Medicine Medical Oncology
DX: D64.9 Anemia, unspecified (principal); C50.919 Malignant neoplasm of unspecified site of unspecified female breast
CPT/HCPCS: 36415; 80053; 85025

== ENCOUNTER 2021-05-26 12:12 | Outpatient (REF) | payer MEDICARE, SELFPAY ==
[2021-05-26 12:49] LABS: MANUAL DIFF FLAG NO
[2021-05-26 12:51] LABS: Basophils Percent Auto 0.6 % (0-2); Hematocrit 33.8 % (37.0-47.0); Hemoglobin 10.2 g/dl (12.0-16.0); Imm Gran Abs Auto 0.02 X10*3/uL (0.00-0.03); Imm Gran Pct Auto 0.4 % (0.0-0.4); Lymphocytes Absolute Auto 0.8 X10*3/uL (1.2-4.9); Lymphocytes Percent Auto 14.3 % (20-40); Mean Corpuscular HGB Conc 30.2 g/dl (31.0-35.0); Mean Corpuscular Hemoglobin 25.9 pg (27.0-33.0); Mean Corpuscular Volume 85.8 fL (80.0-98.0); Mean Platelet Volume 9.8 fL (9.4-12.3); Monocytes Absolute Auto 0.3 X10*3/uL (0.1-1.2); Monocytes Percent Auto 5.2 % (2-11); Neutrophils Absolute Auto 4.3 x10*3/uL (2.0-8.3); Neutrophils Percent Auto 79.5 % (45-73); Platelet Count 174 X10*3/uL (160-400); Red Blood Count 3.94 X10*6/uL (4.20-5.50); Red Cell Distribution Width 15.3 % (11.0-16.0); White Blood Count 5.4 X10*3/uL (4.8-10.8)
[2021-05-26 13:49] LABS: Alanine Aminotransferase < 6 U/L (0-31); Albumin Level 3.2 g/dL (3.5-5.0); Alkaline Phosphatase 74 U/L (39-117); Anion Gap 14 (12-20); Aspartate Amino Transferase 8 U/L (5-31); Bilirubin Total 0.4 mg/dL (0.0-1.0); Blood Urea Nitrogen 24 mg/dL (9-16); Calcium 8.8 mg/dL (8.4-10.2); Carbon Dioxide 25 mmol/L (22-29); Chloride 105 mmol/L (96-108); Estimated Glomerular Filt Rate 48; Glucose Random 119 mg/dL (60-115); Potassium 3.7 mmol/L (3.3-5.1); Sodium 140 mmol/L (135-145); Total Protein 6.6 g/dL (6.5-8.0)
== END 2021-05-26 12:13 | disposition home or self-care (01) ==
LOC: HO.LHD 12:12
PROVIDERS: Visit Provider Internal Medicine Medical Oncology
DX: D64.9 Anemia, unspecified (principal); C50.919 Malignant neoplasm of unspecified site of unspecified female breast
CPT/HCPCS: 36415; 80053; 85025

== ENCOUNTER 2021-06-02 11:35 | Outpatient (REF) | payer MEDICARE, SELFPAY ==
[2021-06-02 10:35] LABS: MANUAL DIFF FLAG NO
[2021-06-02 10:37] LABS: Basophils Percent Auto 0.3 % (0-2); Hematocrit 34.1 % (37.0-47.0); Hemoglobin 10.4 g/dl (12.0-16.0); Imm Gran Abs Auto 0.03 X10*3/uL (0.00-0.03); Imm Gran Pct Auto 0.5 % (0.0-0.4); Lymphocytes Absolute Auto 0.7 X10*3/uL (1.2-4.9); Lymphocytes Percent Auto 11.6 % (20-40); Mean Corpuscular HGB Conc 30.5 g/dl (31.0-35.0); Mean Corpuscular Volume 85.3 fL (80.0-98.0); Mean Platelet Volume 8.9 fL (9.4-12.3); Monocytes Absolute Auto 0.4 X10*3/uL (0.1-1.2); Monocytes Percent Auto 6.4 % (2-11); Neutrophils Absolute Auto 4.7 x10*3/uL (2.0-8.3); Neutrophils Percent Auto 81.2 % (45-73); Platelet Count 175 X10*3/uL (160-400); Red Cell Distribution Width 16.5 % (11.0-16.0); White Blood Count 5.8 X10*3/uL (4.8-10.8)
[2021-06-02 11:58] LABS: Alanine Aminotransferase 6 U/L (0-31); Albumin Level 3.4 g/dL (3.5-5.0); Alkaline Phosphatase 82 U/L (39-117); Anion Gap 12 (12-20); Aspartate Amino Transferase 7 U/L (5-31); Bilirubin Total 0.6 mg/dL (0.0-1.0); Blood Urea Nitrogen 20 mg/dL (9-16); Carbon Dioxide 26 mmol/L (22-29); Chloride 105 mmol/L (96-108); Estimated Glomerular Filt Rate 48; Glucose Random 100 mg/dL (60-115); Potassium 4.4 mmol/L (3.3-5.1); Sodium 139 mmol/L (135-145)
== END 2021-06-02 11:36 | disposition home or self-care (01) ==
LOC: HO.LHD 11:35
PROVIDERS: Visit Provider Internal Medicine Medical Oncology
DX: D64.9 Anemia, unspecified (principal); C50.919 Malignant neoplasm of unspecified site of unspecified female breast
CPT/HCPCS: 36415; 80053; 85025

== ENCOUNTER 2021-06-09 11:00 | Outpatient (REF) | payer MEDICARE, SELFPAY ==
[2021-06-09 10:44] LABS: MANUAL DIFF FLAG NO
[2021-06-09 10:47] LABS: Basophils Percent Auto 0.4 % (0-2); Hematocrit 35.1 % (37.0-47.0); Hemoglobin 10.6 g/dl (12.0-16.0); Imm Gran Abs Auto 0.03 X10*3/uL (0.00-0.03); Imm Gran Pct Auto 0.5 % (0.0-0.4); Lymphocytes Absolute Auto 0.8 X10*3/uL (1.2-4.9); Lymphocytes Percent Auto 13.2 % (20-40); Mean Corpuscular HGB Conc 30.2 g/dl (31.0-35.0); Mean Corpuscular Volume 86.2 fL (80.0-98.0); Mean Platelet Volume 9.8 fL (9.4-12.3); Monocytes Absolute Auto 0.3 X10*3/uL (0.1-1.2); Monocytes Percent Auto 4.9 % (2-11); Neutrophils Absolute Auto 4.6 x10*3/uL (2.0-8.3); Platelet Count 182 X10*3/uL (160-400); Red Blood Count 4.07 X10*6/uL (4.20-5.50); Red Cell Distribution Width 17.5 % (11.0-16.0); White Blood Count 5.7 X10*3/uL (4.8-10.8)
[2021-06-09 13:01] LABS: Alanine Aminotransferase < 6 U/L (0-31); Albumin Level 3.3 g/dL (3.5-5.0); Alkaline Phosphatase 77 U/L (39-117); Anion Gap 12 (12-20); Aspartate Amino Transferase 7 U/L (5-31); Bilirubin Total 0.6 mg/dL (0.0-1.0); Blood Urea Nitrogen 21 mg/dL (9-16); Calcium 8.7 mg/dL (8.4-10.2); Carbon Dioxide 28 mmol/L (22-29); Chloride 104 mmol/L (96-108); Estimated Glomerular Filt Rate 48; Glucose Random 111 mg/dL (60-115); Potassium 3.5 mmol/L (3.3-5.1); Sodium 140 mmol/L (135-145); Total Protein 6.8 g/dL (6.5-8.0)
== END 2021-06-09 11:01 | disposition home or self-care (01) ==
LOC: HO.LHD 11:00
PROVIDERS: Visit Provider Internal Medicine Medical Oncology
DX: N18.9 Chronic kidney disease, unspecified (principal); D63.1 Anemia in chronic kidney disease
CPT/HCPCS: 36415; 80053; 85025

== ENCOUNTER 2021-06-16 | Outpatient (REF) | payer MEDICARE, SELFPAY ==
[2021-06-16 12:03] LABS: Basophils Percent Auto 0.6 % (0-2); Hematocrit 34.2 % (37.0-47.0); Hemoglobin 10.1 g/dl (12.0-16.0); Imm Gran Abs Auto 0.01 X10*3/uL (0.00-0.03); Imm Gran Pct Auto 0.2 % (0.0-0.4); Lymphocytes Absolute Auto 0.6 X10*3/uL (1.2-4.9); Lymphocytes Percent Auto 11.9 % (20-40); MANUAL DIFF FLAG NO; Mean Corpuscular HGB Conc 29.5 g/dl (31.0-35.0); Mean Corpuscular Hemoglobin 25.4 pg (27.0-33.0); Mean Corpuscular Volume 86.1 fL (80.0-98.0); Mean Platelet Volume 9.6 fL (9.4-12.3); Monocytes Absolute Auto 0.3 X10*3/uL (0.1-1.2); Monocytes Percent Auto 4.9 % (2-11); Neutrophils Absolute Auto 4.4 x10*3/uL (2.0-8.3); Neutrophils Percent Auto 82.4 % (45-73); Platelet Count 181 X10*3/uL (160-400); Red Blood Count 3.97 X10*6/uL (4.20-5.50); Red Cell Distribution Width 16.1 % (11.0-16.0); White Blood Count 5.3 X10*3/uL (4.8-10.8)
[2021-06-16 12:46] LABS: Alanine Aminotransferase < 6 U/L (0-31); Albumin Level 3.3 g/dL (3.5-5.0); Alkaline Phosphatase 71 U/L (39-117); Anion Gap 12 (12-20); Aspartate Amino Transferase 7 U/L (5-31); Bilirubin Total 0.5 mg/dL (0.0-1.0); Blood Urea Nitrogen 23 mg/dL (9-16); Calcium 8.6 mg/dL (8.4-10.2); Carbon Dioxide 25 mmol/L (22-29); Chloride 103 mmol/L (96-108); Estimated Glomerular Filt Rate 47; Glucose Random 119 mg/dL (60-115); Potassium 3.6 mmol/L (3.3-5.1); Sodium 136 mmol/L (135-145); Total Protein 6.8 g/dL (6.5-8.0)
== END 2021-06-16 00:01 | disposition home or self-care (01) ==
LOC: HO.LHD
PROVIDERS: Visit Provider Internal Medicine Medical Oncology
DX: D64.9 Anemia, unspecified (principal); C50.919 Malignant neoplasm of unspecified site of unspecified female breast
CPT/HCPCS: 36415; 80053; 85025

== ENCOUNTER 2021-06-23 10:28 | Outpatient (REF) | payer MEDICARE, SELFPAY ==
[2021-06-23 10:21] LABS: MANUAL DIFF FLAG NO
[2021-06-23 10:23] LABS: Basophils Percent Auto 0.5 % (0-2); Hematocrit 37.6 % (37.0-47.0); Imm Gran Abs Auto 0.04 X10*3/uL (0.00-0.03); Imm Gran Pct Auto 0.6 % (0.0-0.4); Lymphocytes Absolute Auto 0.7 X10*3/uL (1.2-4.9); Lymphocytes Percent Auto 11.1 % (20-40); Mean Corpuscular HGB Conc 29.3 g/dl (31.0-35.0); Mean Corpuscular Volume 85.5 fL (80.0-98.0); Monocytes Absolute Auto 0.3 X10*3/uL (0.1-1.2); Monocytes Percent Auto 3.9 % (2-11); Neutrophils Absolute Auto 5.5 x10*3/uL (2.0-8.3); Neutrophils Percent Auto 83.9 % (45-73); Platelet Count 182 X10*3/uL (160-400); Red Cell Distribution Width 16.9 % (11.0-16.0); White Blood Count 6.5 X10*3/uL (4.8-10.8)
[2021-06-23 10:42] LABS: Alanine Aminotransferase < 6 U/L (0-31); Albumin Level 3.5 g/dL (3.5-5.0); Alkaline Phosphatase 80 U/L (39-117); Anion Gap 13 (12-20); Aspartate Amino Transferase 8 U/L (5-31); Bilirubin Total 0.7 mg/dL (0.0-1.0); Blood Urea Nitrogen 18 mg/dL (9-16); Calcium 8.3 mg/dL (8.4-10.2); Carbon Dioxide 25 mmol/L (22-29); Chloride 106 mmol/L (96-108); Estimated Glomerular Filt Rate 48; Glucose Random 146 mg/dL (60-115); Sodium 140 mmol/L (135-145); Total Protein 7.1 g/dL (6.5-8.0)
== END 2021-06-23 10:29 | disposition home or self-care (01) ==
LOC: HO.LHD 10:28
PROVIDERS: Visit Provider Internal Medicine Medical Oncology
DX: D64.9 Anemia, unspecified (principal); C50.919 Malignant neoplasm of unspecified site of unspecified female breast; M81.0 Age-related osteoporosis without current pathological fracture
CPT/HCPCS: 36415; 80053; 85025

== ENCOUNTER 2021-06-30 10:52 | Outpatient (REF) | payer MEDICARE, SELFPAY ==
[2021-06-30 10:40] LABS: MANUAL DIFF FLAG NO
[2021-06-30 10:50] LABS: Basophils Percent Auto 0.6 % (0-2); Hematocrit 37.2 % (37.0-47.0); Imm Gran Abs Auto 0.03 X10*3/uL (0.00-0.03); Imm Gran Pct Auto 0.4 % (0.0-0.4); Lymphocytes Absolute Auto 0.8 X10*3/uL (1.2-4.9); Mean Corpuscular HGB Conc 29.6 g/dl (31.0-35.0); Mean Corpuscular Hemoglobin 24.8 pg (27.0-33.0); Mean Platelet Volume 9.1 fL (9.4-12.3); Monocytes Absolute Auto 0.4 X10*3/uL (0.1-1.2); Monocytes Percent Auto 5.6 % (2-11); Neutrophils Absolute Auto 5.6 x10*3/uL (2.0-8.3); Neutrophils Percent Auto 82.4 % (45-73); Platelet Count 171 X10*3/uL (160-400); Red Blood Count 4.43 X10*6/uL (4.20-5.50); Red Cell Distribution Width 16.6 % (11.0-16.0); White Blood Count 6.8 X10*3/uL (4.8-10.8)
[2021-06-30 11:29] LABS: Alanine Aminotransferase < 6 U/L (0-31); Albumin Level 3.4 g/dL (3.5-5.0); Alkaline Phosphatase 78 U/L (39-117); Anion Gap 14 (12-20); Aspartate Amino Transferase 8 U/L (5-31); Bilirubin Total 0.4 mg/dL (0.0-1.0); Blood Urea Nitrogen 25 mg/dL (9-16); Calcium 8.8 mg/dL (8.4-10.2); Carbon Dioxide 23 mmol/L (22-29); Chloride 104 mmol/L (96-108); Estimated Glomerular Filt Rate 44; Glucose Random 135 mg/dL (60-115); Potassium 4.5 mmol/L (3.3-5.1); Sodium 136 mmol/L (135-145); Total Protein 7.1 g/dL (6.5-8.0)
== END 2021-06-30 10:53 | disposition home or self-care (01) ==
LOC: HO.LHD 10:52
PROVIDERS: Visit Provider Internal Medicine Medical Oncology
DX: D64.9 Anemia, unspecified (principal); C50.919 Malignant neoplasm of unspecified site of unspecified female breast
CPT/HCPCS: 36415; 80053; 85025

== ENCOUNTER 2021-07-06 13:11 | Outpatient (REF) | payer MEDICARE, SELFPAY ==
--- NOTE | ~2021-07-06 | MM_ITS ---
EXAMINATION: BONE DENSITOMETRY CLINICAL INDICATION: Osteoporosis. COMPARISON: Previous BD dated 05/07/2015 and baseline BD dated 04/13/2006. TECHNIQUE: Using a [employer] DXA System (software version: 13.1) manufactured by [employer], dual-energy x-ray absorptiometry was performed of the lumbar spine and right hip. The images are of good technical quality. Summary results are attached. FINDINGS: AP SPINE L1-L4: Current: BMD 1.029 g/cm2, Z-score 1.1, T-score -1.3, osteopenia, 8.1% decrease from previous, 5.2% decrease from baseline (<5% change is not significant). Prior: BMD 1.120 g/cm2. Baseline: BMD 1.085 g/cm2. RIGHT FEMUR, NECK: Current: BMD 0.533 g/cm2, Z-score -1.2, T-score -3.6, osteoporosis. Prior: BMD 0.673 g/cm2. Baseline: BMD 0.871 g/cm2. RIGHT FEMUR, TOTAL: Current: BMD 0.542 g/cm2, Z-score -1.3, T-score -3.7, osteoporosis, 23.2% decrease from previous, 40.0% decrease from baseline (<5% change is not significant). Prior: BMD 0.706 g/cm2. Baseline: BMD 0.904 g/cm2. IDENTIFIED RISK FACTORS: Osteoporosis, low body weight, menopause, history of fracture (adult). HISTORY OF FRACTURE: Femur/hip. MEDICATIONS: Prolia, Calcium supplements or multivitamin, vitamin D. MM/XR DEXA axial skeleton IMPRESSION: 1. DIAGNOSIS: Osteoporosis based on the lowest T-score value of -3.7 in the total femur applying World Health Organization criteria. 2. 10-YEAR FRACTURE RISK PREDICTION, FRAX: According to the guidelines, FRAX calculation should only be performed on patients in the osteopenia bone density category. Therefore, FRAX was not performed on this patient. 3. Treatment Recommendations: NOF guidelines recommend consideration for treatment in postmenopausal women and men age 50 and older presenting with the following: -A hip or vertebral (clinical or morphometric) fracture. -T-score less than or equal to -2.5 at the femoral neck or spine after appropriate evaluation to exclude secondary causes. -Low bone mass at the hip or spine and a 10-year fracture probability by FRAX of greater than or equal to 3% for hip fracture or greater than or equal to 20% for major osteoporotic fracture based on the [place] adapted WHO algorithm. 4. Other Recommendations: All treatment decisions require clinical judgment and consideration of individual patient factors, including patient preferences, comorbidities, previous drug use, risk factors not captured in the FRAX model (e.g. frailty, falls, vitamin D deficiency, increased bone turnover, interval significant decline in bone density) and possible under or overestimation of fracture risk by FRAX. Additional medical evaluation for secondary cause of low bone mineral density may be appropriate. FUTURE SCAN RECOMMENDATION: People with diagnosed cases of osteoporosis or at high risk for fracture should have regular bone mineral density tests. For patients eligible for Medicare, routine testing is allowed once every 2 years. The testing frequency can be increased to one year for patients who have rapidly progressing disease, those who are receiving or discontinuing medical therapy to restore bone mass, or have additional risk factors.
--- NOTE | ~2021-07-06 | MM_ITS ---
EXAMINATION: MM SCREENING DIGITAL BREAST TOMOSYNTHESIS, BILATERAL CLINICAL INFORMATION: Due for yearly. Prior right lumpectomy for breast cancer, 2005. COMPARISON: Mammography: 06/04/2019, 08/13/2018, 05/31/2017, 05/30/2016 TECHNIQUE: Digital breast tomosynthesis is performed in both the craniocaudal and mediolateral oblique views along with computer-aided detection (CAD). Synthesized 2D images are generated from the tomosynthesis. FINDINGS: The breasts are heterogeneously dense, which may obscure small masses (ACR BI-RADS breast composition Category c). The bilateral breasts appear slightly smaller and symmetrically mildly increased in tissue density suggesting weight loss. This may be correlated with clinical history. Otherwise, the breast parenchymal pattern is similar to prior studies. There are post lumpectomy changes again seen on the right with reduced breast size and stable scarring and dystrophic calcification. Neither breast shows interval mass or architectural abnormality. MM/MM tomosynthesis screening BI IMPRESSION: -Breast slightly smaller increased in density suggesting weight loss. Clinically correlate. -Otherwise, no significant changes from prior studies. ASSESSMENT: BI-RADS 2: Benign RECOMMENDATION: Annual bilateral mammography. This patient's information was entered into a reminder system with a target due date for their next mammogram.
== END 2021-07-06 13:12 | disposition home or self-care (01) ==
LOC: HO.MAMMO 13:11
PROVIDERS: PCP Internal Medicine; Visit Provider Internal Medicine Medical Oncology
DX: Z12.31 Encounter for screening mammogram for malignant neoplasm of breast (principal); M81.0 Age-related osteoporosis without current pathological fracture
CPT/HCPCS: 77063; 77067; 77080

== ENCOUNTER 2021-07-07 12:59 | Outpatient (REF) | payer MEDICARE, SELFPAY ==
[2021-07-07 12:24] LABS: MANUAL DIFF FLAG NO
[2021-07-07 12:27] LABS: Basophils Percent Auto 0.5 % (0-2); Hematocrit 35.9 % (37.0-47.0); Imm Gran Abs Auto 0.03 X10*3/uL (0.00-0.03); Imm Gran Pct Auto 0.5 % (0.0-0.4); Lymphocytes Absolute Auto 0.8 X10*3/uL (1.2-4.9); Lymphocytes Percent Auto 12.6 % (20-40); Mean Corpuscular HGB Conc 30.6 g/dl (31.0-35.0); Mean Corpuscular Hemoglobin 25.2 pg (27.0-33.0); Mean Corpuscular Volume 82.2 fL (80.0-98.0); Mean Platelet Volume 9.3 fL (9.4-12.3); Monocytes Absolute Auto 0.3 X10*3/uL (0.1-1.2); Monocytes Percent Auto 5.3 % (2-11); Neutrophils Absolute Auto 5.1 x10*3/uL (2.0-8.3); Neutrophils Percent Auto 81.1 % (45-73); Platelet Count 186 X10*3/uL (160-400); Red Blood Count 4.37 X10*6/uL (4.20-5.50); Red Cell Distribution Width 16.2 % (11.0-16.0); White Blood Count 6.3 X10*3/uL (4.8-10.8)
[2021-07-07 13:05] LABS: Alanine Aminotransferase < 6 U/L (0-31); Albumin Level 3.6 g/dL (3.5-5.0); Alkaline Phosphatase 78 U/L (39-117); Anion Gap 12 (12-20); Aspartate Amino Transferase 8 U/L (5-31); Bilirubin Total 0.5 mg/dL (0.0-1.0); Blood Urea Nitrogen 19 mg/dL (9-16); Calcium 8.4 mg/dL (8.4-10.2); Carbon Dioxide 24 mmol/L (22-29); Chloride 105 mmol/L (96-108); Estimated Glomerular Filt Rate 50; Glucose Random 115 mg/dL (60-115); Potassium 3.8 mmol/L (3.3-5.1); Sodium 137 mmol/L (135-145); Total Protein 7.4 g/dL (6.5-8.0)
== END 2021-07-07 13:00 | disposition home or self-care (01) ==
LOC: HO.LHD 12:59
PROVIDERS: Visit Provider Internal Medicine Medical Oncology
DX: D64.9 Anemia, unspecified (principal); C50.919 Malignant neoplasm of unspecified site of unspecified female breast
CPT/HCPCS: 36415; 80053; 85025

== ENCOUNTER 2021-07-14 08:00 | Outpatient (REF) | payer MEDICARE, SELFPAY ==
[2021-07-14 10:45] LABS: MANUAL DIFF FLAG NO
[2021-07-14 10:52] LABS: Basophils Percent Auto 0.6 % (0-2); Hematocrit 32.1 % (37.0-47.0); Hemoglobin 9.8 g/dl (12.0-16.0); Imm Gran Abs Auto 0.02 X10*3/uL (0.00-0.03); Imm Gran Pct Auto 0.4 % (0.0-0.4); Lymphocytes Absolute Auto 0.7 X10*3/uL (1.2-4.9); Lymphocytes Percent Auto 14.1 % (20-40); Mean Corpuscular HGB Conc 30.5 g/dl (31.0-35.0); Mean Corpuscular Hemoglobin 25.7 pg (27.0-33.0); Monocytes Absolute Auto 0.3 X10*3/uL (0.1-1.2); Monocytes Percent Auto 4.9 % (2-11); Neutrophils Absolute Auto 4.2 x10*3/uL (2.0-8.3); Platelet Count 148 X10*3/uL (160-400); Red Blood Count 3.82 X10*6/uL (4.20-5.50); Red Cell Distribution Width 16.5 % (11.0-16.0); White Blood Count 5.3 X10*3/uL (4.8-10.8)
[2021-07-14 11:07] LABS: Alanine Aminotransferase < 6 U/L (0-31); Albumin Level 3.3 g/dL (3.5-5.0); Alkaline Phosphatase 72 U/L (39-117); Anion Gap 10 (12-20); Aspartate Amino Transferase 8 U/L (5-31); Bilirubin Total 0.7 mg/dL (0.0-1.0); Blood Urea Nitrogen 17 mg/dL (9-16); Calcium 8.2 mg/dL (8.4-10.2); Carbon Dioxide 24 mmol/L (22-29); Chloride 106 mmol/L (96-108); Estimated Glomerular Filt Rate 50; Glucose Random 86 mg/dL (60-115); Potassium 4.1 mmol/L (3.3-5.1); Sodium 136 mmol/L (135-145); Total Protein 6.9 g/dL (6.5-8.0)
== END 2021-07-14 08:01 | disposition home or self-care (01) ==
LOC: HO.LHD 08:00
PROVIDERS: Visit Provider Internal Medicine Medical Oncology
DX: D64.9 Anemia, unspecified (principal); C50.919 Malignant neoplasm of unspecified site of unspecified female breast
CPT/HCPCS: 36415; 80053; 85025

== ENCOUNTER 2021-07-21 12:24 | Outpatient (REF) | payer MEDICARE, SELFPAY ==
[2021-07-21 10:50] LABS: MANUAL DIFF FLAG NO
[2021-07-21 10:52] LABS: Basophils Percent Auto 0.5 % (0-2); Hematocrit 31.2 % (37.0-47.0); Hemoglobin 9.6 g/dl (12.0-16.0); Imm Gran Abs Auto 0.04 X10*3/uL (0.00-0.03); Imm Gran Pct Auto 0.6 % (0.0-0.4); Lymphocytes Absolute Auto 0.7 X10*3/uL (1.2-4.9); Lymphocytes Percent Auto 10.5 % (20-40); Mean Corpuscular HGB Conc 30.8 g/dl (31.0-35.0); Mean Corpuscular Hemoglobin 25.9 pg (27.0-33.0); Mean Corpuscular Volume 84.1 fL (80.0-98.0); Mean Platelet Volume 9.8 fL (9.4-12.3); Monocytes Absolute Auto 0.3 X10*3/uL (0.1-1.2); Monocytes Percent Auto 4.6 % (2-11); Neutrophils Absolute Auto 5.3 x10*3/uL (2.0-8.3); Neutrophils Percent Auto 83.8 % (45-73); Platelet Count 185 X10*3/uL (160-400); Red Blood Count 3.71 X10*6/uL (4.20-5.50); Red Cell Distribution Width 16.9 % (11.0-16.0); White Blood Count 6.3 X10*3/uL (4.8-10.8)
[2021-07-21 12:06] LABS: Alanine Aminotransferase 6 U/L (0-31); Albumin Level 3.3 g/dL (3.5-5.0); Alkaline Phosphatase 73 U/L (39-117); Anion Gap 13 (12-20); Aspartate Amino Transferase 7 U/L (5-31); Bilirubin Total 0.5 mg/dL (0.0-1.0); Blood Urea Nitrogen 14 mg/dL (9-16); Calcium 8.6 mg/dL (8.4-10.2); Carbon Dioxide 24 mmol/L (22-29); Chloride 106 mmol/L (96-108); Estimated Glomerular Filt Rate 55; Glucose Random 90 mg/dL (60-115); Sodium 139 mmol/L (135-145); Total Protein 6.9 g/dL (6.5-8.0)
== END 2021-07-21 12:25 | disposition home or self-care (01) ==
LOC: HO.LHD 12:24
PROVIDERS: Visit Provider Internal Medicine Medical Oncology
DX: D64.9 Anemia, unspecified (principal); C50.919 Malignant neoplasm of unspecified site of unspecified female breast
CPT/HCPCS: 36415; 80053; 85025

== ENCOUNTER 2021-07-30 06:29 | Outpatient (REF) | payer MEDICARE, SELFPAY ==
[2021-07-28 12:13] LABS: MANUAL DIFF FLAG NO
[2021-07-28 12:14] LABS: Basophils Percent Auto 0.4 % (0-2); Hematocrit 32.3 % (37.0-47.0); Hemoglobin 9.7 g/dl (12.0-16.0); Imm Gran Abs Auto 0.02 X10*3/uL (0.00-0.03); Imm Gran Pct Auto 0.4 % (0.0-0.4); Lymphocytes Absolute Auto 0.6 X10*3/uL (1.2-4.9); Lymphocytes Percent Auto 10.8 % (20-40); Mean Corpuscular Hemoglobin 25.5 pg (27.0-33.0); Mean Platelet Volume 9.1 fL (9.4-12.3); Monocytes Absolute Auto 0.3 X10*3/uL (0.1-1.2); Monocytes Percent Auto 5.7 % (2-11); Neutrophils Absolute Auto 4.2 x10*3/uL (2.0-8.3); Neutrophils Percent Auto 82.7 % (45-73); Platelet Count 203 X10*3/uL (160-400); Red Cell Distribution Width 17.4 % (11.0-16.0); White Blood Count 5.1 X10*3/uL (4.8-10.8)
[2021-07-28 13:07] LABS: Alanine Aminotransferase < 6 U/L (0-31); Albumin Level 3.2 g/dL (3.5-5.0); Alkaline Phosphatase 71 U/L (39-117); Anion Gap 13 (12-20); Aspartate Amino Transferase 6 U/L (5-31); Bilirubin Total 0.6 mg/dL (0.0-1.0); Blood Urea Nitrogen 15 mg/dL (9-16); Calcium 8.4 mg/dL (8.4-10.2); Carbon Dioxide 26 mmol/L (22-29); Chloride 103 mmol/L (96-108); Estimated Glomerular Filt Rate 47; Glucose Random 104 mg/dL (60-115); Potassium 3.4 mmol/L (3.3-5.1); Sodium 139 mmol/L (135-145); Total Protein 6.8 g/dL (6.5-8.0)
== END 2021-07-30 06:30 | disposition home or self-care (01) ==
LOC: HO.LHD 06:29
PROVIDERS: Visit Provider Internal Medicine Medical Oncology
DX: D64.9 Anemia, unspecified (principal); C50.919 Malignant neoplasm of unspecified site of unspecified female breast
CPT/HCPCS: 36415; 80053; 85025

== ENCOUNTER 2021-08-04 13:37 | Outpatient (REF) | payer MEDICARE, SELFPAY ==
[2021-08-04 11:21] LABS: MANUAL DIFF FLAG NO
[2021-08-04 11:24] LABS: Basophils Percent Auto 0.6 % (0-2); Hemoglobin 10.6 g/dl (12.0-16.0); Imm Gran Abs Auto 0.03 X10*3/uL (0.00-0.03); Imm Gran Pct Auto 0.6 % (0.0-0.4); Lymphocytes Absolute Auto 0.6 X10*3/uL (1.2-4.9); Lymphocytes Percent Auto 11.7 % (20-40); Mean Corpuscular HGB Conc 29.4 g/dl (31.0-35.0); Mean Corpuscular Hemoglobin 25.4 pg (27.0-33.0); Mean Corpuscular Volume 86.1 fL (80.0-98.0); Mean Platelet Volume 9.2 fL (9.4-12.3); Monocytes Absolute Auto 0.3 X10*3/uL (0.1-1.2); Monocytes Percent Auto 5.1 % (2-11); Platelet Count 198 X10*3/uL (160-400); Red Blood Count 4.18 X10*6/uL (4.20-5.50); White Blood Count 4.9 X10*3/uL (4.8-10.8)
[2021-08-04 12:18] LABS: Alanine Aminotransferase < 6 U/L (0-31); Albumin Level 3.3 g/dL (3.5-5.0); Alkaline Phosphatase 71 U/L (39-117); Anion Gap 13 (12-20); Aspartate Amino Transferase 8 U/L (5-31); Bilirubin Total 0.6 mg/dL (0.0-1.0); Blood Urea Nitrogen 17 mg/dL (9-16); Calcium 8.4 mg/dL (8.4-10.2); Carbon Dioxide 23 mmol/L (22-29); Chloride 107 mmol/L (96-108); Estimated Glomerular Filt Rate 54; Glucose Random 82 mg/dL (60-115); Potassium 3.6 mmol/L (3.3-5.1); Sodium 139 mmol/L (135-145)
== END 2021-08-04 13:38 | disposition home or self-care (01) ==
LOC: HO.LHD 13:37
PROVIDERS: Visit Provider Internal Medicine Medical Oncology
DX: D64.9 Anemia, unspecified (principal); C50.919 Malignant neoplasm of unspecified site of unspecified female breast
CPT/HCPCS: 36415; 80053; 85025

== ENCOUNTER 2021-08-11 07:56 | Outpatient (REF) | payer MEDICARE, SELFPAY ==
[2021-08-11 13:09] LABS: MANUAL DIFF FLAG NO
[2021-08-11 13:13] LABS: Basophils Percent Auto 0.3 % (0-2); Hematocrit 34.7 % (37.0-47.0); Hemoglobin 10.5 g/dl (12.0-16.0); Imm Gran Abs Auto 0.02 X10*3/uL (0.00-0.03); Imm Gran Pct Auto 0.3 % (0.0-0.4); Lymphocytes Absolute Auto 0.7 X10*3/uL (1.2-4.9); Lymphocytes Percent Auto 11.7 % (20-40); Mean Corpuscular HGB Conc 30.3 g/dl (31.0-35.0); Mean Corpuscular Hemoglobin 25.4 pg (27.0-33.0); Mean Corpuscular Volume 83.8 fL (80.0-98.0); Mean Platelet Volume 9.1 fL (9.4-12.3); Monocytes Absolute Auto 0.3 X10*3/uL (0.1-1.2); Monocytes Percent Auto 4.9 % (2-11); Neutrophils Absolute Auto 4.8 x10*3/uL (2.0-8.3); Neutrophils Percent Auto 82.8 % (45-73); Platelet Count 165 X10*3/uL (160-400); Red Blood Count 4.14 X10*6/uL (4.20-5.50); White Blood Count 5.8 X10*3/uL (4.8-10.8)
[2021-08-11 13:27] LABS: Alanine Aminotransferase 6 U/L (0-31); Albumin Level 3.4 g/dL (3.5-5.0); Alkaline Phosphatase 70 U/L (39-117); Anion Gap 10 (12-20); Aspartate Amino Transferase 7 U/L (5-31); Bilirubin Total 0.5 mg/dL (0.0-1.0); Blood Urea Nitrogen 24 mg/dL (9-16); Calcium 8.5 mg/dL (8.4-10.2); Carbon Dioxide 23 mmol/L (22-29); Chloride 105 mmol/L (96-108); Estimated Glomerular Filt Rate 56; Glucose Random 82 mg/dL (60-115); Potassium 4.2 mmol/L (3.3-5.1); Sodium 134 mmol/L (135-145); Total Protein 6.7 g/dL (6.5-8.0)
== END 2021-08-11 07:57 | disposition home or self-care (01) ==
LOC: HO.LHD 07:56
PROVIDERS: Visit Provider Internal Medicine Medical Oncology
DX: C50.919 Malignant neoplasm of unspecified site of unspecified female breast (principal); N18.9 Chronic kidney disease, unspecified; D63.1 Anemia in chronic kidney disease
CPT/HCPCS: 36415; 80053; 85025

== ENCOUNTER 2021-08-18 07:47 | Outpatient (REF) | payer MEDICARE, SELFPAY ==
[2021-08-18 12:13] LABS: MANUAL DIFF FLAG NO
[2021-08-18 12:16] LABS: Basophils Percent Auto 0.6 % (0-2); Hemoglobin 10.3 g/dl (12.0-16.0); Imm Gran Abs Auto 0.03 X10*3/uL (0.00-0.03); Imm Gran Pct Auto 0.6 % (0.0-0.4); Lymphocytes Absolute Auto 0.6 X10*3/uL (1.2-4.9); Lymphocytes Percent Auto 12.3 % (20-40); Mean Corpuscular HGB Conc 29.4 g/dl (31.0-35.0); Mean Corpuscular Hemoglobin 24.9 pg (27.0-33.0); Mean Corpuscular Volume 84.7 fL (80.0-98.0); Mean Platelet Volume 9.6 fL (9.4-12.3); Monocytes Absolute Auto 0.2 X10*3/uL (0.1-1.2); Neutrophils Absolute Auto 3.8 x10*3/uL (2.0-8.3); Neutrophils Percent Auto 81.5 % (45-73); Platelet Count 162 X10*3/uL (160-400); Red Blood Count 4.13 X10*6/uL (4.20-5.50); Red Cell Distribution Width 16.3 % (11.0-16.0); White Blood Count 4.6 X10*3/uL (4.8-10.8)
[2021-08-18 13:06] LABS: Alanine Aminotransferase < 6 U/L (0-31); Albumin Level 3.3 g/dL (3.5-5.0); Alkaline Phosphatase 76 U/L (39-117); Anion Gap 14 (12-20); Aspartate Amino Transferase 7 U/L (5-31); Bilirubin Total 0.3 mg/dL (0.0-1.0); Blood Urea Nitrogen 21 mg/dL (9-16); Carbon Dioxide 23 mmol/L (22-29); Chloride 105 mmol/L (96-108); Estimated Glomerular Filt Rate 53; Glucose Random 128 mg/dL (60-115); Potassium 3.6 mmol/L (3.3-5.1); Sodium 138 mmol/L (135-145); Total Protein 6.9 g/dL (6.5-8.0)
== END 2021-08-18 07:48 | disposition home or self-care (01) ==
LOC: HO.LHD 07:47
PROVIDERS: Visit Provider Internal Medicine Medical Oncology
DX: D64.9 Anemia, unspecified (principal); C50.919 Malignant neoplasm of unspecified site of unspecified female breast
CPT/HCPCS: 36415; 80053; 85025

== ENCOUNTER 2021-08-25 06:56 | Outpatient (REF) | payer MEDICARE, SELFPAY ==
[2021-08-25 12:40] LABS: MANUAL DIFF FLAG NO
[2021-08-25 12:48] LABS: Basophils Percent Auto 0.5 % (0-2); Hematocrit 33.6 % (37.0-47.0); Hemoglobin 10.2 g/dl (12.0-16.0); Imm Gran Abs Auto 0.03 X10*3/uL (0.00-0.03); Imm Gran Pct Auto 0.5 % (0.0-0.4); Lymphocytes Absolute Auto 0.7 X10*3/uL (1.2-4.9); Lymphocytes Percent Auto 11.6 % (20-40); Mean Corpuscular HGB Conc 30.4 g/dl (31.0-35.0); Mean Corpuscular Hemoglobin 25.4 pg (27.0-33.0); Mean Corpuscular Volume 83.8 fL (80.0-98.0); Mean Platelet Volume 9.2 fL (9.4-12.3); Monocytes Absolute Auto 0.2 X10*3/uL (0.1-1.2); Monocytes Percent Auto 3.8 % (2-11); Neutrophils Absolute Auto 5.4 x10*3/uL (2.0-8.3); Neutrophils Percent Auto 83.6 % (45-73); Platelet Count 175 X10*3/uL (160-400); Red Blood Count 4.01 X10*6/uL (4.20-5.50); Red Cell Distribution Width 16.2 % (11.0-16.0); White Blood Count 6.4 X10*3/uL (4.8-10.8)
[2021-08-25 13:17] LABS: Alanine Aminotransferase < 6 U/L (0-31); Albumin Level 3.5 g/dL (3.5-5.0); Alkaline Phosphatase 76 U/L (39-117); Anion Gap 11 (12-20); Aspartate Amino Transferase 9 U/L (5-31); Bilirubin Total 0.5 mg/dL (0.0-1.0); Blood Urea Nitrogen 22 mg/dL (9-16); Calcium 8.1 mg/dL (8.4-10.2); Carbon Dioxide 25 mmol/L (22-29); Chloride 107 mmol/L (96-108); Estimated Glomerular Filt Rate 54; Glucose Random 94 mg/dL (60-115); Potassium 3.5 mmol/L (3.3-5.1); Sodium 139 mmol/L (135-145); Total Protein 7.1 g/dL (6.5-8.0)
== END 2021-08-25 06:57 | disposition home or self-care (01) ==
LOC: HO.WMHL 06:56
PROVIDERS: Visit Provider Internal Medicine Medical Oncology
DX: D64.9 Anemia, unspecified (principal); C50.919 Malignant neoplasm of unspecified site of unspecified female breast
CPT/HCPCS: 36415; 80053; 85025

== ENCOUNTER 2021-09-02 07:20 | Outpatient (REF) | payer MEDICARE, SELFPAY ==
[2021-09-01 10:50] LABS: MANUAL DIFF FLAG NO
[2021-09-01 10:55] LABS: Basophils Percent Auto 0.4 % (0-2); Hematocrit 32.2 % (37.0-47.0); Hemoglobin 9.7 g/dl (12.0-16.0); Imm Gran Abs Auto 0.02 X10*3/uL (0.00-0.03); Imm Gran Pct Auto 0.4 % (0.0-0.4); Lymphocytes Absolute Auto 0.6 X10*3/uL (1.2-4.9); Lymphocytes Percent Auto 12.5 % (20-40); Mean Corpuscular HGB Conc 30.1 g/dl (31.0-35.0); Mean Corpuscular Hemoglobin 25.7 pg (27.0-33.0); Mean Corpuscular Volume 85.2 fL (80.0-98.0); Mean Platelet Volume 9.4 fL (9.4-12.3); Monocytes Absolute Auto 0.3 X10*3/uL (0.1-1.2); Monocytes Percent Auto 5.3 % (2-11); Neutrophils Absolute Auto 4.2 x10*3/uL (2.0-8.3); Neutrophils Percent Auto 81.4 % (45-73); Platelet Count 171 X10*3/uL (160-400); Red Blood Count 3.78 X10*6/uL (4.20-5.50); Red Cell Distribution Width 17.3 % (11.0-16.0); White Blood Count 5.1 X10*3/uL (4.8-10.8)
[2021-09-01 11:36] LABS: Alanine Aminotransferase < 6 U/L (0-31); Albumin Level 3.6 g/dL (3.5-5.0); Alkaline Phosphatase 82 U/L (39-117); Anion Gap 11 (12-20); Aspartate Amino Transferase 5 U/L (5-31); Bilirubin Total 0.6 mg/dL (0.0-1.0); Blood Urea Nitrogen 23 mg/dL (9-16); Calcium 8.4 mg/dL (8.4-10.2); Carbon Dioxide 25 mmol/L (22-29); Chloride 106 mmol/L (96-108); Estimated Glomerular Filt Rate 52; Glucose Random 107 mg/dL (60-115); Potassium 3.7 mmol/L (3.3-5.1); Sodium 138 mmol/L (135-145); Total Protein 7.2 g/dL (6.5-8.0)
== END 2021-09-02 07:21 | disposition home or self-care (01) ==
LOC: HO.LHD 07:20
PROVIDERS: Visit Provider Internal Medicine Medical Oncology
DX: D64.9 Anemia, unspecified (principal); C50.919 Malignant neoplasm of unspecified site of unspecified female breast
CPT/HCPCS: 36415; 80053; 85025

== ENCOUNTER 2021-09-08 12:47 | Outpatient (REF) | payer MEDICARE, SELFPAY ==
[2021-09-08 10:38] LABS: MANUAL DIFF FLAG NO
[2021-09-08 10:40] LABS: Basophils Percent Auto 0.4 % (0-2); Hematocrit 34.7 % (37.0-47.0); Hemoglobin 10.6 g/dl (12.0-16.0); Imm Gran Abs Auto 0.02 X10*3/uL (0.00-0.03); Imm Gran Pct Auto 0.4 % (0.0-0.4); Lymphocytes Absolute Auto 0.5 X10*3/uL (1.2-4.9); Lymphocytes Percent Auto 10.8 % (20-40); Mean Corpuscular HGB Conc 30.5 g/dl (31.0-35.0); Mean Corpuscular Hemoglobin 26.1 pg (27.0-33.0); Mean Corpuscular Volume 85.5 fL (80.0-98.0); Mean Platelet Volume 9.2 fL (9.4-12.3); Monocytes Absolute Auto 0.2 X10*3/uL (0.1-1.2); Monocytes Percent Auto 4.4 % (2-11); Platelet Count 175 X10*3/uL (160-400); Red Blood Count 4.06 X10*6/uL (4.20-5.50); Red Cell Distribution Width 17.9 % (11.0-16.0); White Blood Count 4.8 X10*3/uL (4.8-10.8)
[2021-09-08 11:06] LABS: Alanine Aminotransferase < 6 U/L (0-31); Albumin Level 3.5 g/dL (3.5-5.0); Alkaline Phosphatase 85 U/L (39-117); Anion Gap 14 (12-20); Aspartate Amino Transferase 8 U/L (5-31); Bilirubin Total 0.7 mg/dL (0.0-1.0); Blood Urea Nitrogen 18 mg/dL (9-16); Calcium 8.1 mg/dL (8.4-10.2); Carbon Dioxide 21 mmol/L (22-29); Chloride 107 mmol/L (96-108); Estimated Glomerular Filt Rate 53; Glucose Random 76 mg/dL (60-115); Potassium 3.7 mmol/L (3.3-5.1); Sodium 138 mmol/L (135-145); Total Protein 7.2 g/dL (6.5-8.0)
== END 2021-09-08 12:48 | disposition home or self-care (01) ==
LOC: HO.LHD 12:47
PROVIDERS: Visit Provider Internal Medicine Medical Oncology
DX: D64.9 Anemia, unspecified (principal); C50.919 Malignant neoplasm of unspecified site of unspecified female breast
CPT/HCPCS: 36415; 80053; 85025

== ENCOUNTER 2021-09-15 06:55 | Outpatient (REF) | payer MEDICARE, SELFPAY ==
[2021-09-15 11:28] LABS: Hematocrit 33.7 % (37.0-47.0); Hemoglobin 10.3 g/dl (12.0-16.0); Mean Corpuscular HGB Conc 30.6 g/dl (31.0-35.0); Mean Corpuscular Hemoglobin 25.9 pg (27.0-33.0); Mean Corpuscular Volume 84.7 fL (80.0-98.0); Mean Platelet Volume 8.6 fL (9.4-12.3); Platelet Count 171 X10*3/uL (160-400); Red Blood Count 3.98 X10*6/uL (4.20-5.50); Red Cell Distribution Width 16.5 % (11.0-16.0); White Blood Count 4.8 X10*3/uL (4.8-10.8)
[2021-09-15 11:55] LABS: Alanine Aminotransferase < 6 U/L (0-31); Albumin Level 3.4 g/dL (3.5-5.0); Alkaline Phosphatase 75 U/L (39-117); Anion Gap 12 (12-20); Aspartate Amino Transferase 8 U/L (5-31); Bilirubin Total 0.5 mg/dL (0.0-1.0); Blood Urea Nitrogen 24 mg/dL (9-16); Calcium 8.1 mg/dL (8.4-10.2); Carbon Dioxide 23 mmol/L (22-29); Chloride 105 mmol/L (96-108); Estimated Glomerular Filt Rate 54; Glucose Random 105 mg/dL (60-115); Potassium 3.6 mmol/L (3.3-5.1); Sodium 136 mmol/L (135-145); Total Protein 6.9 g/dL (6.5-8.0)
== END 2021-09-15 06:56 | disposition home or self-care (01) ==
LOC: HO.LHD 06:55
PROVIDERS: Visit Provider Internal Medicine Medical Oncology
DX: D64.9 Anemia, unspecified (principal); C50.919 Malignant neoplasm of unspecified site of unspecified female breast
CPT/HCPCS: 36415; 80053; 85027

== ENCOUNTER 2021-09-24 14:19 | Outpatient (REF) | payer MEDICARE, SELFPAY ==
[2021-09-22 11:56] LABS: Basophils Percent Auto 0.4 % (0-2); Hematocrit 35.1 % (37.0-47.0); Hemoglobin 10.6 g/dl (12.0-16.0); Imm Gran Abs Auto 0.03 X10*3/uL (0.00-0.03); Imm Gran Pct Auto 0.4 % (0.0-0.4); Lymphocytes Absolute Auto 0.8 X10*3/uL (1.2-4.9); Lymphocytes Percent Auto 11.4 % (20-40); MANUAL DIFF FLAG SCAN; Mean Corpuscular HGB Conc 30.2 g/dl (31.0-35.0); Mean Corpuscular Hemoglobin 25.5 pg (27.0-33.0); Mean Corpuscular Volume 84.4 fL (80.0-98.0); Mean Platelet Volume 11.3 fL (9.4-12.3); Monocytes Absolute Auto 0.3 X10*3/uL (0.1-1.2); Monocytes Percent Auto 4.2 % (2-11); Neutrophils Percent Auto 83.6 % (45-73); PLT CLUMP 1; Red Blood Count 4.16 X10*6/uL (4.20-5.50); Red Cell Distribution Width 16.2 % (11.0-16.0); SCAN SMEAR FLAG 1
[2021-09-22 12:18] LABS: White Blood Count 7.1 X10*3/uL (4.8-10.8)
[2021-09-22 12:40] LABS: Alanine Aminotransferase 6 U/L (0-31); Albumin Level 3.8 g/dL (3.5-5.0); Alkaline Phosphatase 89 U/L (39-117); Anion Gap 14 (12-20); Aspartate Amino Transferase 9 U/L (5-31); Bilirubin Total 0.5 mg/dL (0.0-1.0); Blood Urea Nitrogen 28 mg/dL (9-16); Calcium 8.6 mg/dL (8.4-10.2); Carbon Dioxide 22 mmol/L (22-29); Chloride 105 mmol/L (96-108); Estimated Glomerular Filt Rate 45; Glucose Random 86 mg/dL (60-115); Iron 33 mcg/dL (30-160); Percent Iron Saturation 12 % (15-50); Sodium 138 mmol/L (135-145); Total Iron Binding Capacity 268 mcg/dL (228-428); Total Protein 7.6 g/dL (6.5-8.0); Unsaturated Iron Binding 235 ug/dL
[2021-09-22 12:56] LABS: Ferritin 125 ng/mL (10-250)
[2021-09-22 13:03] LABS: SLIDE REVIEW VERIFIED
[2021-09-24 08:51] LABS: CA 27.29 15 U/mL (<38)
== END 2021-09-24 14:20 | disposition home or self-care (01) ==
LOC: HO.LHD 14:19
PROVIDERS: Visit Provider Internal Medicine Medical Oncology
DX: C50.919 Malignant neoplasm of unspecified site of unspecified female breast (principal); D64.9 Anemia, unspecified
CPT/HCPCS: 36415; 80053; 82306; 82728; 83540; 85025; 86300

== ENCOUNTER 2021-09-29 06:09 | Outpatient (REF) | payer MEDICARE, SELFPAY ==
[2021-09-29 12:23] LABS: MANUAL DIFF FLAG NO
[2021-09-29 12:25] LABS: Basophils Absolute Auto 0.1 X10*3/uL (0.0-0.2); Basophils Percent Auto 0.8 % (0-2); Hemoglobin 10.5 g/dl (12.0-16.0); Imm Gran Abs Auto 0.03 X10*3/uL (0.00-0.03); Imm Gran Pct Auto 0.5 % (0.0-0.4); Lymphocytes Absolute Auto 0.7 X10*3/uL (1.2-4.9); Lymphocytes Percent Auto 11.8 % (20-40); Mean Corpuscular HGB Conc 30.9 g/dl (31.0-35.0); Mean Corpuscular Hemoglobin 26.3 pg (27.0-33.0); Mean Platelet Volume 9.5 fL (9.4-12.3); Monocytes Absolute Auto 0.3 X10*3/uL (0.1-1.2); Neutrophils Absolute Auto 5.2 x10*3/uL (2.0-8.3); Neutrophils Percent Auto 82.9 % (45-73); Platelet Count 169 X10*3/uL (160-400); Red Cell Distribution Width 16.1 % (11.0-16.0); White Blood Count 6.3 X10*3/uL (4.8-10.8)
[2021-09-29 12:59] LABS: Alanine Aminotransferase < 6 U/L (0-31); Albumin Level 3.6 g/dL (3.5-5.0); Alkaline Phosphatase 86 U/L (39-117); Anion Gap 13 (12-20); Aspartate Amino Transferase 9 U/L (5-31); Bilirubin Total 0.6 mg/dL (0.0-1.0); Blood Urea Nitrogen 21 mg/dL (9-16); Calcium 8.5 mg/dL (8.4-10.2); Carbon Dioxide 23 mmol/L (22-29); Chloride 106 mmol/L (96-108); Estimated Glomerular Filt Rate 46; Glucose Random 84 mg/dL (60-115); Potassium 3.2 mmol/L (3.3-5.1); Sodium 139 mmol/L (135-145); Total Protein 7.4 g/dL (6.5-8.0)
== END 2021-09-29 06:10 | disposition home or self-care (01) ==
LOC: HO.LHD 06:09
PROVIDERS: Visit Provider Internal Medicine Medical Oncology
DX: D64.9 Anemia, unspecified (principal); C50.919 Malignant neoplasm of unspecified site of unspecified female breast
CPT/HCPCS: 36415; 80053; 85025

== ENCOUNTER 2021-10-06 | Outpatient (REF) | payer MEDICARE, SELFPAY ==
[2021-10-06 11:08] LABS: MANUAL DIFF FLAG NO
[2021-10-06 11:36] LABS: Basophils Percent Auto 0.5 % (0-2); Eosinophils Percent Auto 0.4 % (0-4); Hematocrit 31.3 % (37.0-47.0); Hemoglobin 9.5 g/dl (12.0-16.0); Imm Gran Abs Auto 0.03 X10*3/uL (0.00-0.03); Imm Gran Pct Auto 0.4 % (0.0-0.4); Lymphocytes Absolute Auto 0.6 X10*3/uL (1.2-4.9); Lymphocytes Percent Auto 7.6 % (20-40); Mean Corpuscular HGB Conc 30.4 g/dl (31.0-35.0); Mean Corpuscular Volume 85.8 fL (80.0-98.0); Mean Platelet Volume 9.8 fL (9.4-12.3); Monocytes Absolute Auto 0.3 X10*3/uL (0.1-1.2); Monocytes Percent Auto 4.3 % (2-11); Neutrophils Absolute Auto 6.9 x10*3/uL (2.0-8.3); Neutrophils Percent Auto 86.8 % (45-73); Platelet Count 161 X10*3/uL (160-400); Red Blood Count 3.65 X10*6/uL (4.20-5.50); Red Cell Distribution Width 16.4 % (11.0-16.0); White Blood Count 7.9 X10*3/uL (4.8-10.8)
[2021-10-06 12:13] LABS: Alanine Aminotransferase 6 U/L (0-31); Albumin Level 3.5 g/dL (3.5-5.0); Alkaline Phosphatase 91 U/L (39-117); Anion Gap 11 (12-20); Aspartate Amino Transferase 7 U/L (5-31); Bilirubin Total 0.5 mg/dL (0.0-1.0); Blood Urea Nitrogen 23 mg/dL (9-16); Calcium 8.3 mg/dL (8.4-10.2); Carbon Dioxide 24 mmol/L (22-29); Chloride 106 mmol/L (96-108); Estimated Glomerular Filt Rate 44; Glucose Random 133 mg/dL (60-115); Potassium 3.3 mmol/L (3.3-5.1); Sodium 138 mmol/L (135-145); Total Protein 7.2 g/dL (6.5-8.0)
== END 2021-10-06 00:01 | disposition home or self-care (01) ==
LOC: HO.LHD
PROVIDERS: Visit Provider Internal Medicine Medical Oncology
DX: C50.919 Malignant neoplasm of unspecified site of unspecified female breast (principal)
CPT/HCPCS: 36415; 80053; 85025

== ENCOUNTER 2021-10-13 06:41 | Outpatient (REF) | payer MEDICARE, SELFPAY ==
[2021-10-13 12:14] LABS: MANUAL DIFF FLAG NO
[2021-10-13 12:23] LABS: Basophils Percent Auto 0.6 % (0-2); Hemoglobin 9.1 g/dl (12.0-16.0); Imm Gran Abs Auto 0.04 X10*3/uL (0.00-0.03); Imm Gran Pct Auto 0.6 % (0.0-0.4); Lymphocytes Absolute Auto 0.7 X10*3/uL (1.2-4.9); Lymphocytes Percent Auto 11.3 % (20-40); Mean Corpuscular HGB Conc 31.4 g/dl (31.0-35.0); Mean Corpuscular Hemoglobin 26.7 pg (27.0-33.0); Mean Platelet Volume 9.8 fL (9.4-12.3); Monocytes Absolute Auto 0.4 X10*3/uL (0.1-1.2); Monocytes Percent Auto 6.2 % (2-11); Neutrophils Absolute Auto 5.3 x10*3/uL (2.0-8.3); Neutrophils Percent Auto 81.3 % (45-73); Platelet Count 175 X10*3/uL (160-400); Red Blood Count 3.41 X10*6/uL (4.20-5.50); Red Cell Distribution Width 17.1 % (11.0-16.0); White Blood Count 6.6 X10*3/uL (4.8-10.8)
== END 2021-10-13 06:42 | disposition home or self-care (01) ==
LOC: HO.LHD 06:41
PROVIDERS: Visit Provider Internal Medicine Medical Oncology
DX: C50.919 Malignant neoplasm of unspecified site of unspecified female breast (principal); D64.9 Anemia, unspecified
CPT/HCPCS: 36415; 85025

== ENCOUNTER 2021-10-20 11:12 | Outpatient (REF) | payer MEDICARE, SELFPAY ==
[2021-10-20 11:11] LABS: MANUAL DIFF FLAG NO
[2021-10-20 11:25] LABS: Basophils Percent Auto 0.5 % (0-2); Hematocrit 31.1 % (37.0-47.0); Hemoglobin 9.3 g/dl (12.0-16.0); Imm Gran Abs Auto 0.05 X10*3/uL (0.00-0.03); Imm Gran Pct Auto 0.9 % (0.0-0.4); Lymphocytes Absolute Auto 0.7 X10*3/uL (1.2-4.9); Mean Corpuscular HGB Conc 29.9 g/dl (31.0-35.0); Mean Corpuscular Hemoglobin 25.8 pg (27.0-33.0); Mean Corpuscular Volume 86.4 fL (80.0-98.0); Mean Platelet Volume 9.2 fL (9.4-12.3); Monocytes Absolute Auto 0.3 X10*3/uL (0.1-1.2); Monocytes Percent Auto 5.7 % (2-11); Neutrophils Absolute Auto 4.5 x10*3/uL (2.0-8.3); Neutrophils Percent Auto 80.9 % (45-73); Platelet Count 193 X10*3/uL (160-400); White Blood Count 5.6 X10*3/uL (4.8-10.8)
== END 2021-10-20 11:13 | disposition home or self-care (01) ==
LOC: HO.LHD 11:12
PROVIDERS: Visit Provider Internal Medicine Medical Oncology
DX: C50.919 Malignant neoplasm of unspecified site of unspecified female breast (principal); N18.9 Chronic kidney disease, unspecified; D63.1 Anemia in chronic kidney disease
CPT/HCPCS: 36415; 85025

== ENCOUNTER 2021-10-28 05:43 | Outpatient (REF) | payer MEDICARE, SELFPAY ==
[2021-10-27 11:03] LABS: MANUAL DIFF FLAG NO
[2021-10-27 11:08] LABS: Basophils Percent Auto 0.5 % (0-2); Hematocrit 35.6 % (37.0-47.0); Hemoglobin 10.6 g/dl (12.0-16.0); Imm Gran Abs Auto 0.02 X10*3/uL (0.00-0.03); Imm Gran Pct Auto 0.3 % (0.0-0.4); Lymphocytes Absolute Auto 0.8 X10*3/uL (1.2-4.9); Lymphocytes Percent Auto 12.6 % (20-40); Mean Corpuscular HGB Conc 29.8 g/dl (31.0-35.0); Mean Corpuscular Hemoglobin 25.7 pg (27.0-33.0); Mean Corpuscular Volume 86.4 fL (80.0-98.0); Mean Platelet Volume 9.1 fL (9.4-12.3); Monocytes Absolute Auto 0.3 X10*3/uL (0.1-1.2); Monocytes Percent Auto 4.9 % (2-11); Neutrophils Absolute Auto 4.9 x10*3/uL (2.0-8.3); Neutrophils Percent Auto 81.7 % (45-73); Platelet Count 197 X10*3/uL (160-400); Red Blood Count 4.12 X10*6/uL (4.20-5.50); Red Cell Distribution Width 17.2 % (11.0-16.0); White Blood Count 5.9 X10*3/uL (4.8-10.8)
== END 2021-10-28 05:44 | disposition home or self-care (01) ==
LOC: HO.LHD 05:43
PROVIDERS: Visit Provider Internal Medicine Medical Oncology
DX: C50.919 Malignant neoplasm of unspecified site of unspecified female breast (principal); N18.9 Chronic kidney disease, unspecified; D63.1 Anemia in chronic kidney disease
CPT/HCPCS: 36415; 85025

== ENCOUNTER 2021-11-05 07:05 | Outpatient (REF) | payer MEDICARE, SELFPAY ==
[2021-11-03 09:55] LABS: MANUAL DIFF FLAG NO
[2021-11-03 09:58] LABS: Basophils Percent Auto 0.5 % (0-2); Eosinophils Absolute Auto 0.2 X10*3/uL (0.0-0.4); Hematocrit 35.7 % (37.0-47.0); Hemoglobin 10.9 g/dl (12.0-16.0); Imm Gran Abs Auto 0.04 X10*3/uL (0.00-0.03); Imm Gran Pct Auto 0.6 % (0.0-0.4); Lymphocytes Absolute Auto 0.8 X10*3/uL (1.2-4.9); Lymphocytes Percent Auto 12.5 % (20-40); Mean Corpuscular HGB Conc 30.5 g/dl (31.0-35.0); Mean Corpuscular Hemoglobin 25.8 pg (27.0-33.0); Mean Corpuscular Volume 84.4 fL (80.0-98.0); Mean Platelet Volume 8.9 fL (9.4-12.3); Monocytes Absolute Auto 0.4 X10*3/uL (0.1-1.2); Monocytes Percent Auto 5.4 % (2-11); Neutrophils Absolute Auto 5.2 x10*3/uL (2.0-8.3); Platelet Count 179 X10*3/uL (160-400); Red Blood Count 4.23 X10*6/uL (4.20-5.50); Red Cell Distribution Width 15.9 % (11.0-16.0); White Blood Count 6.6 X10*3/uL (4.8-10.8)
== END 2021-11-05 07:06 | disposition home or self-care (01) ==
LOC: HO.LHD 07:05
PROVIDERS: Visit Provider Internal Medicine Medical Oncology
DX: C50.919 Malignant neoplasm of unspecified site of unspecified female breast (principal); N18.9 Chronic kidney disease, unspecified; D63.1 Anemia in chronic kidney disease
CPT/HCPCS: 36415; 85025

== ENCOUNTER 2021-11-10 05:37 | Outpatient (REF) | payer MEDICARE, SELFPAY ==
[2021-11-10 11:19] LABS: Monocytes Percent Auto 5.9 % (2-11); PLT CLUMP 1; SCAN SMEAR FLAG 1
[2021-11-10 11:21] LABS: Basophils Percent Auto 0.7 % (0-2); Eosinophils Percent Auto 0.7 % (0-4); Hemoglobin 10.2 g/dl (12.0-16.0); Imm Gran Abs Auto 0.02 X10*3/uL (0.00-0.03); Imm Gran Pct Auto 0.3 % (0.0-0.4); Lymphocytes Absolute Auto 0.7 X10*3/uL (1.2-4.9); Lymphocytes Percent Auto 11.2 % (20-40); MANUAL DIFF FLAG SCAN; Mean Corpuscular Hemoglobin 25.4 pg (27.0-33.0); Mean Corpuscular Volume 84.8 fL (80.0-98.0); Monocytes Absolute Auto 0.3 X10*3/uL (0.1-1.2); Neutrophils Absolute Auto 4.7 x10*3/uL (2.0-8.3); Neutrophils Percent Auto 81.2 % (45-73); Red Blood Count 4.01 X10*6/uL (4.20-5.50); Red Cell Distribution Width 15.4 % (11.0-16.0)
[2021-11-10 13:10] LABS: White Blood Count 5.8 X10*3/uL (4.8-10.8)
[2021-11-10 13:11] LABS: SLIDE REVIEW VERIFIED
== END 2021-11-10 05:38 | disposition home or self-care (01) ==
LOC: HO.LHD 05:37
PROVIDERS: Visit Provider Internal Medicine Medical Oncology
DX: N18.9 Chronic kidney disease, unspecified (principal); D63.1 Anemia in chronic kidney disease
CPT/HCPCS: 36415; 85025

== ENCOUNTER 2021-11-17 14:21 | Outpatient (REF) | payer MEDICARE, SELFPAY ==
[2021-11-17 11:50] LABS: MANUAL DIFF FLAG NO
[2021-11-17 11:54] LABS: Basophils Percent Auto 0.6 % (0-2); Hematocrit 31.4 % (37.0-47.0); Hemoglobin 9.6 g/dl (12.0-16.0); Imm Gran Abs Auto 0.03 X10*3/uL (0.00-0.03); Imm Gran Pct Auto 0.6 % (0.0-0.4); Lymphocytes Absolute Auto 0.8 X10*3/uL (1.2-4.9); Lymphocytes Percent Auto 15.3 % (20-40); Mean Corpuscular HGB Conc 30.6 g/dl (31.0-35.0); Mean Corpuscular Hemoglobin 25.7 pg (27.0-33.0); Mean Corpuscular Volume 84.2 fL (80.0-98.0); Mean Platelet Volume 9.8 fL (9.4-12.3); Monocytes Absolute Auto 0.3 X10*3/uL (0.1-1.2); Monocytes Percent Auto 5.4 % (2-11); Neutrophils Absolute Auto 4.1 x10*3/uL (2.0-8.3); Neutrophils Percent Auto 78.1 % (45-73); Platelet Count 167 X10*3/uL (160-400); Red Blood Count 3.73 X10*6/uL (4.20-5.50); Red Cell Distribution Width 16.2 % (11.0-16.0); White Blood Count 5.2 X10*3/uL (4.8-10.8)
== END 2021-11-17 14:22 | disposition home or self-care (01) ==
LOC: HO.LHD 14:21
PROVIDERS: Visit Provider Internal Medicine Medical Oncology
DX: C50.919 Malignant neoplasm of unspecified site of unspecified female breast (principal); N18.9 Chronic kidney disease, unspecified; D63.1 Anemia in chronic kidney disease
CPT/HCPCS: 36415; 85025

== ENCOUNTER 2021-11-24 08:13 | Outpatient (REF) | payer MEDICARE, SELFPAY ==
[2021-11-24 12:52] LABS: MANUAL DIFF FLAG NO
[2021-11-24 13:02] LABS: Basophils Percent Auto 0.7 % (0-2); Hematocrit 34.5 % (37.0-47.0); Hemoglobin 10.4 g/dl (12.0-16.0); Imm Gran Abs Auto 0.02 X10*3/uL (0.00-0.03); Imm Gran Pct Auto 0.3 % (0.0-0.4); Lymphocytes Absolute Auto 0.7 X10*3/uL (1.2-4.9); Lymphocytes Percent Auto 12.3 % (20-40); Mean Corpuscular HGB Conc 30.1 g/dl (31.0-35.0); Mean Corpuscular Hemoglobin 25.4 pg (27.0-33.0); Mean Corpuscular Volume 84.1 fL (80.0-98.0); Mean Platelet Volume 9.1 fL (9.4-12.3); Monocytes Absolute Auto 0.3 X10*3/uL (0.1-1.2); Monocytes Percent Auto 5.8 % (2-11); Neutrophils Absolute Auto 4.7 x10*3/uL (2.0-8.3); Neutrophils Percent Auto 80.9 % (45-73); Platelet Count 178 X10*3/uL (160-400); Red Cell Distribution Width 16.5 % (11.0-16.0); White Blood Count 5.9 X10*3/uL (4.8-10.8)
== END 2021-11-24 08:14 ==
LOC: HO.LHD 08:13
PROVIDERS: Visit Provider Internal Medicine Medical Oncology
DX: C50.919 Malignant neoplasm of unspecified site of unspecified female breast (principal); D63.1 Anemia in chronic kidney disease
CPT/HCPCS: 36415; 85025

== ENCOUNTER 2021-12-01 06:55 | Outpatient (REF) | payer MEDICARE, SELFPAY ==
[2021-12-01 11:26] LABS: MANUAL DIFF FLAG NO
[2021-12-01 11:33] LABS: Basophils Percent Auto 0.6 % (0-2); Hematocrit 34.5 % (37.0-47.0); Hemoglobin 10.5 g/dl (12.0-16.0); Imm Gran Abs Auto 0.02 X10*3/uL (0.00-0.03); Imm Gran Pct Auto 0.4 % (0.0-0.4); Lymphocytes Absolute Auto 0.6 X10*3/uL (1.2-4.9); Lymphocytes Percent Auto 11.2 % (20-40); Mean Corpuscular HGB Conc 30.4 g/dl (31.0-35.0); Mean Corpuscular Hemoglobin 25.3 pg (27.0-33.0); Mean Corpuscular Volume 83.1 fL (80.0-98.0); Mean Platelet Volume 9.9 fL (9.4-12.3); Monocytes Absolute Auto 0.2 X10*3/uL (0.1-1.2); Monocytes Percent Auto 4.5 % (2-11); Neutrophils Absolute Auto 4.5 x10*3/uL (2.0-8.3); Neutrophils Percent Auto 83.3 % (45-73); Platelet Count 202 X10*3/uL (160-400); Red Blood Count 4.15 X10*6/uL (4.20-5.50); Red Cell Distribution Width 15.6 % (11.0-16.0); White Blood Count 5.4 X10*3/uL (4.8-10.8)
[2021-12-01 11:58] LABS: Cholesterol 137 mg/dL; HDL Cholesterol 37 mg/dL; LDL Cholesterol Calculated 81 mg/dl; Triglycerides 99 mg/dL
== END 2021-12-01 06:56 | disposition home or self-care (01) ==
LOC: HO.LHD 06:55
PROVIDERS: Internal Medicine; Visit Provider Internal Medicine Medical Oncology
DX: C50.919 Malignant neoplasm of unspecified site of unspecified female breast (principal); E78.5 Hyperlipidemia, unspecified; N18.9 Chronic kidney disease, unspecified; D63.1 Anemia in chronic kidney disease
CPT/HCPCS: 36415; 80061; 85025

== ENCOUNTER 2021-12-08 12:01 | Outpatient (REF) | payer MEDICARE, SELFPAY ==
[2021-12-08 10:31] LABS: MANUAL DIFF FLAG NO
[2021-12-08 10:34] LABS: Basophils Absolute Auto 0.1 X10*3/uL (0.0-0.2); Basophils Percent Auto 0.9 % (0-2); Eosinophils Percent Auto 0.2 % (0-4); Hematocrit 33.7 % (37.0-47.0); Hemoglobin 10.3 g/dl (12.0-16.0); Imm Gran Abs Auto 0.02 X10*3/uL (0.00-0.03); Imm Gran Pct Auto 0.4 % (0.0-0.4); Lymphocytes Percent Auto 17.8 % (20-40); Mean Corpuscular HGB Conc 30.6 g/dl (31.0-35.0); Mean Corpuscular Hemoglobin 25.3 pg (27.0-33.0); Mean Corpuscular Volume 82.8 fL (80.0-98.0); Mean Platelet Volume 9.7 fL (9.4-12.3); Monocytes Absolute Auto 0.3 X10*3/uL (0.1-1.2); Monocytes Percent Auto 5.7 % (2-11); Neutrophils Absolute Auto 4.2 x10*3/uL (2.0-8.3); Platelet Count 182 X10*3/uL (160-400); Red Blood Count 4.07 X10*6/uL (4.20-5.50); Red Cell Distribution Width 15.4 % (11.0-16.0); White Blood Count 5.6 X10*3/uL (4.8-10.8)
== END 2021-12-08 12:02 | disposition home or self-care (01) ==
LOC: HO.LHD 12:01
PROVIDERS: Visit Provider Internal Medicine Medical Oncology
DX: C50.919 Malignant neoplasm of unspecified site of unspecified female breast (principal); N18.9 Chronic kidney disease, unspecified; D63.1 Anemia in chronic kidney disease
CPT/HCPCS: 36415; 85025

== ENCOUNTER 2021-12-15 08:25 | Outpatient (REF) | payer MEDICARE, SELFPAY ==
[2021-12-15 10:29] LABS: MANUAL DIFF FLAG NO
[2021-12-15 10:33] LABS: Basophils Percent Auto 0.6 % (0-2); Hemoglobin 10.2 g/dl (12.0-16.0); Imm Gran Abs Auto 0.02 X10*3/uL (0.00-0.03); Imm Gran Pct Auto 0.3 % (0.0-0.4); Lymphocytes Percent Auto 14.6 % (20-40); Mean Corpuscular HGB Conc 30.9 g/dl (31.0-35.0); Mean Corpuscular Hemoglobin 25.7 pg (27.0-33.0); Mean Corpuscular Volume 83.1 fL (80.0-98.0); Mean Platelet Volume 9.7 fL (9.4-12.3); Monocytes Absolute Auto 0.3 X10*3/uL (0.1-1.2); Neutrophils Absolute Auto 5.4 x10*3/uL (2.0-8.3); Neutrophils Percent Auto 79.5 % (45-73); Platelet Count 164 X10*3/uL (160-400); Red Blood Count 3.97 X10*6/uL (4.20-5.50); Red Cell Distribution Width 15.9 % (11.0-16.0); White Blood Count 6.8 X10*3/uL (4.8-10.8)
== END 2021-12-15 08:26 ==
LOC: HO.LHD 08:25
PROVIDERS: Visit Provider Internal Medicine Medical Oncology
DX: C50.919 Malignant neoplasm of unspecified site of unspecified female breast (principal); N18.9 Chronic kidney disease, unspecified; D63.1 Anemia in chronic kidney disease
CPT/HCPCS: 36415; 85025

== ENCOUNTER 2021-12-22 08:33 | Outpatient (REF) | payer MEDICARE, SELFPAY ==
[2021-12-22 13:42] LABS: Hematocrit 30.5 % (37.0-47.0); Hemoglobin 9.3 g/dl (12.0-16.0); Mean Corpuscular HGB Conc 30.5 g/dl (31.0-35.0); Mean Corpuscular Volume 85.2 fL (80.0-98.0); Mean Platelet Volume 9.8 fL (9.4-12.3); Platelet Count 165 X10*3/uL (160-400); Red Blood Count 3.58 X10*6/uL (4.20-5.50); Red Cell Distribution Width 17.4 % (11.0-16.0); White Blood Count 5.2 X10*3/uL (4.8-10.8)
== END 2021-12-22 08:34 | disposition home or self-care (01) ==
LOC: HO.LHD 08:33
PROVIDERS: Visit Provider Internal Medicine Medical Oncology
DX: N18.9 Chronic kidney disease, unspecified (principal); D63.1 Anemia in chronic kidney disease; C50.919 Malignant neoplasm of unspecified site of unspecified female breast
CPT/HCPCS: 36415; 85027

== ENCOUNTER 2021-12-29 07:15 | Outpatient (REF) | payer MEDICARE, SELFPAY ==
[2021-12-29 12:07] LABS: MANUAL DIFF FLAG NO
[2021-12-29 12:16] LABS: Basophils Percent Auto 0.5 % (0-2); Hematocrit 30.5 % (37.0-47.0); Hemoglobin 9.2 g/dl (12.0-16.0); Imm Gran Abs Auto 0.01 X10*3/uL (0.00-0.03); Imm Gran Pct Auto 0.2 % (0.0-0.4); Lymphocytes Absolute Auto 0.7 X10*3/uL (1.2-4.9); Lymphocytes Percent Auto 16.7 % (20-40); Mean Corpuscular HGB Conc 30.2 g/dl (31.0-35.0); Mean Corpuscular Hemoglobin 25.8 pg (27.0-33.0); Mean Corpuscular Volume 85.4 fL (80.0-98.0); Mean Platelet Volume 9.2 fL (9.4-12.3); Monocytes Absolute Auto 0.3 X10*3/uL (0.1-1.2); Monocytes Percent Auto 6.8 % (2-11); Neutrophils Absolute Auto 3.2 x10*3/uL (2.0-8.3); Neutrophils Percent Auto 75.8 % (45-73); Platelet Count 152 X10*3/uL (160-400); Red Blood Count 3.57 X10*6/uL (4.20-5.50); Red Cell Distribution Width 18.6 % (11.0-16.0); White Blood Count 4.3 X10*3/uL (4.8-10.8)
== END 2021-12-29 07:16 | disposition home or self-care (01) ==
LOC: HO.LHD 07:15
PROVIDERS: Visit Provider Internal Medicine Medical Oncology
DX: N18.9 Chronic kidney disease, unspecified (principal); D63.1 Anemia in chronic kidney disease
CPT/HCPCS: 36415; 85025

== ENCOUNTER 2022-01-05 12:29 | Outpatient (REF) | payer MEDICARE, SELFPAY ==
[2022-01-05 10:19] LABS: MANUAL DIFF FLAG NO
[2022-01-05 10:21] LABS: Basophils Percent Auto 0.8 % (0-2); Hematocrit 31.4 % (37.0-47.0); Hemoglobin 9.5 g/dl (12.0-16.0); Imm Gran Abs Auto 0.01 X10*3/uL (0.00-0.03); Imm Gran Pct Auto 0.3 % (0.0-0.4); Lymphocytes Absolute Auto 0.8 X10*3/uL (1.2-4.9); Lymphocytes Percent Auto 20.7 % (20-40); Mean Corpuscular HGB Conc 30.3 g/dl (31.0-35.0); Mean Corpuscular Hemoglobin 26.8 pg (27.0-33.0); Mean Corpuscular Volume 88.5 fL (80.0-98.0); Mean Platelet Volume 9.9 fL (9.4-12.3); Monocytes Absolute Auto 0.3 X10*3/uL (0.1-1.2); Monocytes Percent Auto 6.6 % (2-11); Neutrophils Absolute Auto 2.7 x10*3/uL (2.0-8.3); Neutrophils Percent Auto 71.6 % (45-73); Platelet Count 169 X10*3/uL (160-400); Red Blood Count 3.55 X10*6/uL (4.20-5.50); Red Cell Distribution Width 18.8 % (11.0-16.0); White Blood Count 3.8 X10*3/uL (4.8-10.8)
== END 2022-01-05 12:30 | disposition home or self-care (01) ==
LOC: HO.LHD 12:29
PROVIDERS: Visit Provider Internal Medicine Medical Oncology
DX: C50.919 Malignant neoplasm of unspecified site of unspecified female breast (principal); N18.9 Chronic kidney disease, unspecified; D63.1 Anemia in chronic kidney disease
CPT/HCPCS: 36415; 85025

== ENCOUNTER 2022-01-12 06:10 | Outpatient (REF) | payer MEDICARE, SELFPAY ==
[2022-01-12 11:40] LABS: MANUAL DIFF FLAG NO
[2022-01-12 12:07] LABS: Basophils Percent Auto 0.6 % (0-2); Hematocrit 36.3 % (37.0-47.0); Hemoglobin 10.7 g/dl (12.0-16.0); Imm Gran Abs Auto 0.01 X10*3/uL (0.00-0.03); Imm Gran Pct Auto 0.2 % (0.0-0.4); Lymphocytes Absolute Auto 0.7 X10*3/uL (1.2-4.9); Lymphocytes Percent Auto 14.4 % (20-40); Mean Corpuscular HGB Conc 29.5 g/dl (31.0-35.0); Mean Corpuscular Hemoglobin 25.8 pg (27.0-33.0); Mean Corpuscular Volume 87.5 fL (80.0-98.0); Mean Platelet Volume 9.7 fL (9.4-12.3); Monocytes Absolute Auto 0.3 X10*3/uL (0.1-1.2); Monocytes Percent Auto 5.8 % (2-11); Neutrophils Absolute Auto 4.1 x10*3/uL (2.0-8.3); Platelet Count 201 X10*3/uL (160-400); Red Blood Count 4.15 X10*6/uL (4.20-5.50); Red Cell Distribution Width 17.6 % (11.0-16.0); White Blood Count 5.2 X10*3/uL (4.8-10.8)
== END 2022-01-12 06:11 | disposition home or self-care (01) ==
LOC: HO.LHD 06:10
PROVIDERS: Visit Provider Internal Medicine Medical Oncology
DX: C50.919 Malignant neoplasm of unspecified site of unspecified female breast (principal); N18.9 Chronic kidney disease, unspecified; D63.1 Anemia in chronic kidney disease
CPT/HCPCS: 36415; 85025

== ENCOUNTER 2022-01-19 06:01 | Outpatient (REF) | payer MEDICARE, SELFPAY ==
[2022-01-19 10:15] LABS: MANUAL DIFF FLAG NO
[2022-01-19 10:22] LABS: Basophils Absolute Auto 0.1 X10*3/uL (0.0-0.2); Basophils Percent Auto 0.8 % (0-2); Eosinophils Absolute Auto 0.2 X10*3/uL (0.0-0.4); Hematocrit 38.3 % (37.0-47.0); Hemoglobin 11.5 g/dl (12.0-16.0); Imm Gran Abs Auto 0.01 X10*3/uL (0.00-0.03); Imm Gran Pct Auto 0.2 % (0.0-0.4); Lymphocytes Absolute Auto 0.8 X10*3/uL (1.2-4.9); Lymphocytes Percent Auto 13.5 % (20-40); Mean Corpuscular Hemoglobin 25.8 pg (27.0-33.0); Mean Corpuscular Volume 86.1 fL (80.0-98.0); Mean Platelet Volume 9.8 fL (9.4-12.3); Monocytes Absolute Auto 0.4 X10*3/uL (0.1-1.2); Monocytes Percent Auto 5.9 % (2-11); Neutrophils Absolute Auto 4.7 x10*3/uL (2.0-8.3); Neutrophils Percent Auto 76.6 % (45-73); Platelet Count 188 X10*3/uL (160-400); Red Blood Count 4.45 X10*6/uL (4.20-5.50); Red Cell Distribution Width 16.5 % (11.0-16.0); White Blood Count 6.1 X10*3/uL (4.8-10.8)
== END 2022-01-19 06:02 | disposition home or self-care (01) ==
LOC: HO.LHD 06:01
PROVIDERS: Visit Provider Internal Medicine Medical Oncology
DX: N18.9 Chronic kidney disease, unspecified (principal); D63.1 Anemia in chronic kidney disease
CPT/HCPCS: 36415; 85025

== ENCOUNTER → 2022-01-20 12:55 | Outpatient (BNVA) | payer MEDICARE, SELFPAY | PROVIDERS: PCP Internal Medicine; Visit Provider Surgery | DX: Z85.3 Personal history of malignant neoplasm of breast (principal) | CPT/HCPCS: 99212 ==

== ENCOUNTER 2022-01-26 08:26 | Outpatient (REF) | payer MEDICARE, SELFPAY ==
[2022-01-26 10:24] LABS: MANUAL DIFF FLAG NO
[2022-01-26 10:32] LABS: Basophils Percent Auto 0.5 % (0-2); Hematocrit 37.1 % (37.0-47.0); Hemoglobin 11.2 g/dl (12.0-16.0); Imm Gran Abs Auto 0.02 X10*3/uL (0.00-0.03); Imm Gran Pct Auto 0.3 % (0.0-0.4); Lymphocytes Absolute Auto 0.7 X10*3/uL (1.2-4.9); Mean Corpuscular HGB Conc 30.2 g/dl (31.0-35.0); Mean Corpuscular Hemoglobin 25.5 pg (27.0-33.0); Mean Corpuscular Volume 84.3 fL (80.0-98.0); Mean Platelet Volume 9.8 fL (9.4-12.3); Monocytes Absolute Auto 0.2 X10*3/uL (0.1-1.2); Monocytes Percent Auto 3.8 % (2-11); Neutrophils Absolute Auto 4.8 x10*3/uL (2.0-8.3); Neutrophils Percent Auto 83.4 % (45-73); Platelet Count 200 X10*3/uL (160-400); Red Cell Distribution Width 16.3 % (11.0-16.0); White Blood Count 5.8 X10*3/uL (4.8-10.8)
== END 2022-01-26 08:27 | disposition home or self-care (01) ==
LOC: HO.LHD 08:26
PROVIDERS: Visit Provider Internal Medicine Medical Oncology
DX: C50.919 Malignant neoplasm of unspecified site of unspecified female breast (principal); N18.9 Chronic kidney disease, unspecified; D63.1 Anemia in chronic kidney disease
CPT/HCPCS: 36415; 85025

== ENCOUNTER 2022-02-02 11:05 | Outpatient (REF) | payer MEDICARE, SELFPAY ==
[2022-02-02 10:39] LABS: MANUAL DIFF FLAG NO
[2022-02-02 10:51] LABS: Basophils Percent Auto 0.6 % (0-2); Hematocrit 33.3 % (37.0-47.0); Imm Gran Abs Auto 0.03 X10*3/uL (0.00-0.03); Imm Gran Pct Auto 0.4 % (0.0-0.4); Lymphocytes Absolute Auto 0.9 X10*3/uL (1.2-4.9); Mean Corpuscular Hemoglobin 25.3 pg (27.0-33.0); Mean Corpuscular Volume 84.3 fL (80.0-98.0); Mean Platelet Volume 9.6 fL (9.4-12.3); Monocytes Absolute Auto 0.4 X10*3/uL (0.1-1.2); Monocytes Percent Auto 5.7 % (2-11); Neutrophils Absolute Auto 5.4 x10*3/uL (2.0-8.3); Neutrophils Percent Auto 80.3 % (45-73); Platelet Count 173 X10*3/uL (160-400); Red Blood Count 3.95 X10*6/uL (4.20-5.50); Red Cell Distribution Width 16.3 % (11.0-16.0); White Blood Count 6.7 X10*3/uL (4.8-10.8)
== END 2022-02-02 11:06 | disposition home or self-care (01) ==
LOC: HO.LHD 11:05
PROVIDERS: Visit Provider Internal Medicine Medical Oncology
DX: C50.919 Malignant neoplasm of unspecified site of unspecified female breast (principal); N18.9 Chronic kidney disease, unspecified
CPT/HCPCS: 36415; 85025

== ENCOUNTER 2022-02-09 06:03 | Outpatient (REF) | payer MEDICARE, SELFPAY ==
[2022-02-09 10:35] LABS: MANUAL DIFF FLAG NO
[2022-02-09 10:39] LABS: Basophils Percent Auto 0.4 % (0-2); Hematocrit 33.4 % (37.0-47.0); Imm Gran Abs Auto 0.02 X10*3/uL (0.00-0.03); Imm Gran Pct Auto 0.4 % (0.0-0.4); Lymphocytes Absolute Auto 0.7 X10*3/uL (1.2-4.9); Lymphocytes Percent Auto 13.7 % (20-40); Mean Corpuscular HGB Conc 29.9 g/dl (31.0-35.0); Mean Corpuscular Hemoglobin 25.8 pg (27.0-33.0); Mean Corpuscular Volume 86.3 fL (80.0-98.0); Mean Platelet Volume 9.6 fL (9.4-12.3); Monocytes Absolute Auto 0.3 X10*3/uL (0.1-1.2); Monocytes Percent Auto 6.4 % (2-11); Neutrophils Absolute Auto 3.9 x10*3/uL (2.0-8.3); Neutrophils Percent Auto 79.1 % (45-73); Platelet Count 151 X10*3/uL (160-400); Red Blood Count 3.87 X10*6/uL (4.20-5.50); Red Cell Distribution Width 17.7 % (11.0-16.0)
== END 2022-02-09 06:04 | disposition home or self-care (01) ==
LOC: HO.LHD 06:03
PROVIDERS: Visit Provider Internal Medicine Medical Oncology
DX: C50.919 Malignant neoplasm of unspecified site of unspecified female breast (principal); N18.9 Chronic kidney disease, unspecified; D63.1 Anemia in chronic kidney disease
CPT/HCPCS: 36415; 85025

== ENCOUNTER 2022-02-16 06:10 | Outpatient (REF) | payer MEDICARE, SELFPAY ==
[2022-02-16 12:14] LABS: MANUAL DIFF FLAG NO
[2022-02-16 12:20] LABS: Basophils Percent Auto 0.6 % (0-2); Hematocrit 32.3 % (37.0-47.0); Hemoglobin 9.6 g/dl (12.0-16.0); Imm Gran Abs Auto 0.02 X10*3/uL (0.00-0.03); Imm Gran Pct Auto 0.4 % (0.0-0.4); Lymphocytes Absolute Auto 0.7 X10*3/uL (1.2-4.9); Mean Corpuscular HGB Conc 29.7 g/dl (31.0-35.0); Mean Corpuscular Hemoglobin 25.5 pg (27.0-33.0); Mean Corpuscular Volume 85.7 fL (80.0-98.0); Mean Platelet Volume 10.3 fL (9.4-12.3); Monocytes Absolute Auto 0.4 X10*3/uL (0.1-1.2); Monocytes Percent Auto 7.2 % (2-11); Neutrophils Absolute Auto 4.3 x10*3/uL (2.0-8.3); Neutrophils Percent Auto 79.8 % (45-73); Platelet Count 202 X10*3/uL (160-400); Red Blood Count 3.77 X10*6/uL (4.20-5.50); Red Cell Distribution Width 17.2 % (11.0-16.0); White Blood Count 5.4 X10*3/uL (4.8-10.8)
[2022-02-16 13:22] LABS: Cholesterol 142 mg/dL; HDL Cholesterol 40 mg/dL; LDL Cholesterol Calculated 86 mg/dl; Triglycerides 80 mg/dL
== END 2022-02-16 06:11 | disposition home or self-care (01) ==
LOC: HO.LHD 06:10
PROVIDERS: Visit Provider Internal Medicine Medical Oncology
DX: C50.919 Malignant neoplasm of unspecified site of unspecified female breast (principal); N18.9 Chronic kidney disease, unspecified; D63.1 Anemia in chronic kidney disease; Z13.220 Encounter for screening for lipoid disorders
CPT/HCPCS: 36415; 80061; 85025

== ENCOUNTER 2022-02-23 11:10 | Outpatient (REF) | payer MEDICARE, SELFPAY ==
[2022-02-23 10:35] LABS: MANUAL DIFF FLAG NO
[2022-02-23 10:46] LABS: Basophils Percent Auto 0.6 % (0-2); Hematocrit 34.8 % (37.0-47.0); Hemoglobin 10.3 g/dl (12.0-16.0); Imm Gran Abs Auto 0.02 X10*3/uL (0.00-0.03); Imm Gran Pct Auto 0.4 % (0.0-0.4); Lymphocytes Absolute Auto 0.5 X10*3/uL (1.2-4.9); Mean Corpuscular HGB Conc 29.6 g/dl (31.0-35.0); Mean Corpuscular Hemoglobin 24.9 pg (27.0-33.0); Mean Corpuscular Volume 84.3 fL (80.0-98.0); Mean Platelet Volume 9.6 fL (9.4-12.3); Monocytes Absolute Auto 0.3 X10*3/uL (0.1-1.2); Monocytes Percent Auto 5.3 % (2-11); Neutrophils Absolute Auto 4.1 x10*3/uL (2.0-8.3); Neutrophils Percent Auto 82.7 % (45-73); Platelet Count 203 X10*3/uL (160-400); Red Blood Count 4.13 X10*6/uL (4.20-5.50); Red Cell Distribution Width 16.5 % (11.0-16.0); White Blood Count 4.9 X10*3/uL (4.8-10.8)
== END 2022-02-23 11:11 | disposition home or self-care (01) ==
LOC: HO.LHD 11:10
PROVIDERS: Visit Provider Internal Medicine Medical Oncology
DX: C50.919 Malignant neoplasm of unspecified site of unspecified female breast (principal); N18.9 Chronic kidney disease, unspecified; D63.1 Anemia in chronic kidney disease
CPT/HCPCS: 36415; 85025

== ENCOUNTER 2022-03-02 10:48 | Outpatient (REF) | payer MEDICARE, SELFPAY ==
[2022-03-02 10:33] LABS: MANUAL DIFF FLAG NO
[2022-03-02 10:49] LABS: Basophils Percent Auto 0.7 % (0-2); Hematocrit 34.2 % (37.0-47.0); Imm Gran Abs Auto 0.03 X10*3/uL (0.00-0.03); Imm Gran Pct Auto 0.5 % (0.0-0.4); Lymphocytes Absolute Auto 0.5 X10*3/uL (1.2-4.9); Lymphocytes Percent Auto 9.5 % (20-40); Mean Corpuscular HGB Conc 29.2 g/dl (31.0-35.0); Mean Corpuscular Hemoglobin 24.8 pg (27.0-33.0); Mean Corpuscular Volume 84.7 fL (80.0-98.0); Mean Platelet Volume 10.1 fL (9.4-12.3); Monocytes Absolute Auto 0.3 X10*3/uL (0.1-1.2); Monocytes Percent Auto 4.8 % (2-11); Neutrophils Absolute Auto 4.6 x10*3/uL (2.0-8.3); Neutrophils Percent Auto 84.5 % (45-73); Platelet Count 188 X10*3/uL (160-400); Red Blood Count 4.04 X10*6/uL (4.20-5.50); Red Cell Distribution Width 15.8 % (11.0-16.0); White Blood Count 5.5 X10*3/uL (4.8-10.8)
== END 2022-03-02 10:49 | disposition home or self-care (01) ==
LOC: HO.LHD 10:48
PROVIDERS: Visit Provider Internal Medicine Medical Oncology
DX: C50.919 Malignant neoplasm of unspecified site of unspecified female breast (principal); N18.9 Chronic kidney disease, unspecified; D63.1 Anemia in chronic kidney disease
CPT/HCPCS: 36415; 85025

== ENCOUNTER 2022-03-09 10:38 | Outpatient (REF) | payer MEDICARE, SELFPAY ==
[2022-03-09 10:02] LABS: MANUAL DIFF FLAG NO
[2022-03-09 10:04] LABS: Basophils Percent Auto 0.7 % (0-2); Hematocrit 34.1 % (37.0-47.0); Imm Gran Abs Auto 0.02 X10*3/uL (0.00-0.03); Imm Gran Pct Auto 0.4 % (0.0-0.4); Lymphocytes Absolute Auto 0.8 X10*3/uL (1.2-4.9); Lymphocytes Percent Auto 15.1 % (20-40); Mean Corpuscular HGB Conc 29.3 g/dl (31.0-35.0); Mean Corpuscular Hemoglobin 24.8 pg (27.0-33.0); Mean Corpuscular Volume 84.4 fL (80.0-98.0); Mean Platelet Volume 9.5 fL (9.4-12.3); Monocytes Absolute Auto 0.4 X10*3/uL (0.1-1.2); Monocytes Percent Auto 6.7 % (2-11); Neutrophils Absolute Auto 4.3 x10*3/uL (2.0-8.3); Neutrophils Percent Auto 77.1 % (45-73); Platelet Count 174 X10*3/uL (160-400); Red Blood Count 4.04 X10*6/uL (4.20-5.50); Red Cell Distribution Width 16.5 % (11.0-16.0); White Blood Count 5.6 X10*3/uL (4.8-10.8)
== END 2022-03-09 10:39 | disposition home or self-care (01) ==
LOC: HO.LHD 10:38
PROVIDERS: Visit Provider Internal Medicine Medical Oncology
DX: N18.9 Chronic kidney disease, unspecified (principal); D63.1 Anemia in chronic kidney disease; C50.919 Malignant neoplasm of unspecified site of unspecified female breast
CPT/HCPCS: 36415; 85025

== ENCOUNTER 2022-03-16 06:17 | Outpatient (REF) | payer MEDICARE, SELFPAY ==
[2022-03-16 10:02] LABS: MANUAL DIFF FLAG NO
[2022-03-16 10:10] LABS: Basophils Percent Auto 0.6 % (0-2); Hemoglobin 10.1 g/dl (12.0-16.0); Imm Gran Abs Auto 0.01 X10*3/uL (0.00-0.03); Imm Gran Pct Auto 0.2 % (0.0-0.4); Lymphocytes Absolute Auto 0.8 X10*3/uL (1.2-4.9); Mean Corpuscular HGB Conc 29.7 g/dl (31.0-35.0); Mean Corpuscular Hemoglobin 24.9 pg (27.0-33.0); Mean Platelet Volume 9.8 fL (9.4-12.3); Monocytes Absolute Auto 0.3 X10*3/uL (0.1-1.2); Monocytes Percent Auto 6.2 % (2-11); Neutrophils Absolute Auto 3.7 x10*3/uL (2.0-8.3); Platelet Count 174 X10*3/uL (160-400); Red Blood Count 4.05 X10*6/uL (4.20-5.50); White Blood Count 4.8 X10*3/uL (4.8-10.8)
== END 2022-03-16 06:18 | disposition home or self-care (01) ==
LOC: HO.LHD 06:17
PROVIDERS: Visit Provider Internal Medicine Medical Oncology
DX: Z13.89 Encounter for screening for other disorder (principal)
CPT/HCPCS: 36415; 85025

== ENCOUNTER 2022-03-23 10:50 | Outpatient (REF) | payer MEDICARE, SELFPAY ==
[2022-03-23 10:08] LABS: MANUAL DIFF FLAG NO
[2022-03-23 10:10] LABS: Basophils Percent Auto 0.5 % (0-2); Hemoglobin 10.2 g/dl (12.0-16.0); Imm Gran Abs Auto 0.02 X10*3/uL (0.00-0.03); Imm Gran Pct Auto 0.3 % (0.0-0.4); Lymphocytes Absolute Auto 0.8 X10*3/uL (1.2-4.9); Lymphocytes Percent Auto 13.5 % (20-40); Mean Corpuscular HGB Conc 29.1 g/dl (31.0-35.0); Mean Corpuscular Hemoglobin 24.9 pg (27.0-33.0); Mean Corpuscular Volume 85.4 fL (80.0-98.0); Mean Platelet Volume 9.7 fL (9.4-12.3); Monocytes Absolute Auto 0.3 X10*3/uL (0.1-1.2); Monocytes Percent Auto 5.3 % (2-11); Neutrophils Absolute Auto 4.9 x10*3/uL (2.0-8.3); Neutrophils Percent Auto 80.4 % (45-73); Platelet Count 185 X10*3/uL (160-400); Red Cell Distribution Width 16.9 % (11.0-16.0); White Blood Count 6.1 X10*3/uL (4.8-10.8)
== END 2022-03-23 10:51 | disposition home or self-care (01) ==
LOC: HO.LHD 10:50
PROVIDERS: Visit Provider Internal Medicine Medical Oncology
DX: C50.919 Malignant neoplasm of unspecified site of unspecified female breast (principal); N18.9 Chronic kidney disease, unspecified; D63.1 Anemia in chronic kidney disease
CPT/HCPCS: 36415; 85025

== ENCOUNTER 2022-03-30 13:48 | Outpatient (REF) | payer MEDICARE, SELFPAY ==
[2022-03-30 12:09] LABS: MANUAL DIFF FLAG NO
[2022-03-30 12:16] LABS: Basophils Percent Auto 0.6 % (0-2); Hematocrit 40.4 % (37.0-47.0); Hemoglobin 11.8 g/dl (12.0-16.0); Imm Gran Abs Auto 0.02 X10*3/uL (0.00-0.03); Imm Gran Pct Auto 0.3 % (0.0-0.4); Lymphocytes Absolute Auto 0.9 X10*3/uL (1.2-4.9); Lymphocytes Percent Auto 14.3 % (20-40); Mean Corpuscular HGB Conc 29.2 g/dl (31.0-35.0); Mean Corpuscular Hemoglobin 24.8 pg (27.0-33.0); Mean Corpuscular Volume 85.1 fL (80.0-98.0); Mean Platelet Volume 9.3 fL (9.4-12.3); Monocytes Absolute Auto 0.3 X10*3/uL (0.1-1.2); Monocytes Percent Auto 4.3 % (2-11); Neutrophils Absolute Auto 5.3 x10*3/uL (2.0-8.3); Neutrophils Percent Auto 80.5 % (45-73); Platelet Count 203 X10*3/uL (160-400); Red Blood Count 4.75 X10*6/uL (4.20-5.50); Red Cell Distribution Width 16.7 % (11.0-16.0); White Blood Count 6.6 X10*3/uL (4.8-10.8)
== END 2022-03-30 13:49 | disposition home or self-care (01) ==
LOC: HO.LHD 13:48
PROVIDERS: Visit Provider Internal Medicine Medical Oncology
DX: N18.9 Chronic kidney disease, unspecified (principal); D63.1 Anemia in chronic kidney disease
CPT/HCPCS: 36415; 85025

== ENCOUNTER 2022-04-06 11:07 | Outpatient (REF) | payer MEDICARE, SELFPAY ==
[2022-04-06 09:43] LABS: MANUAL DIFF FLAG NO
[2022-04-06 09:46] LABS: Basophils Percent Auto 0.5 % (0-2); Hematocrit 37.1 % (37.0-47.0); Hemoglobin 11.1 g/dl (12.0-16.0); Imm Gran Abs Auto 0.02 X10*3/uL (0.00-0.03); Imm Gran Pct Auto 0.3 % (0.0-0.4); Lymphocytes Absolute Auto 0.8 X10*3/uL (1.2-4.9); Lymphocytes Percent Auto 12.9 % (20-40); Mean Corpuscular HGB Conc 29.9 g/dl (31.0-35.0); Mean Corpuscular Hemoglobin 24.9 pg (27.0-33.0); Mean Corpuscular Volume 83.2 fL (80.0-98.0); Mean Platelet Volume 9.3 fL (9.4-12.3); Monocytes Absolute Auto 0.4 X10*3/uL (0.1-1.2); Monocytes Percent Auto 5.9 % (2-11); Neutrophils Absolute Auto 5.2 x10*3/uL (2.0-8.3); Neutrophils Percent Auto 80.4 % (45-73); Platelet Count 169 X10*3/uL (160-400); Red Blood Count 4.46 X10*6/uL (4.20-5.50); Red Cell Distribution Width 15.9 % (11.0-16.0); White Blood Count 6.4 X10*3/uL (4.8-10.8)
== END 2022-04-06 11:08 | disposition home or self-care (01) ==
LOC: HO.LHD 11:07
PROVIDERS: Visit Provider Internal Medicine Medical Oncology
DX: N18.9 Chronic kidney disease, unspecified (principal); D63.1 Anemia in chronic kidney disease
CPT/HCPCS: 36415; 85025

== ENCOUNTER 2022-04-13 06:13 | Outpatient (REF) | payer MEDICARE, SELFPAY ==
[2022-04-13 12:24] LABS: MANUAL DIFF FLAG NO
[2022-04-13 12:29] LABS: Basophils Percent Auto 0.4 % (0-2); Hematocrit 39.6 % (37.0-47.0); Hemoglobin 11.7 g/dl (12.0-16.0); Imm Gran Abs Auto 0.02 X10*3/uL (0.00-0.03); Imm Gran Pct Auto 0.3 % (0.0-0.4); Lymphocytes Absolute Auto 0.9 X10*3/uL (1.2-4.9); Lymphocytes Percent Auto 12.7 % (20-40); Mean Corpuscular HGB Conc 29.5 g/dl (31.0-35.0); Mean Corpuscular Hemoglobin 24.5 pg (27.0-33.0); Mean Platelet Volume 9.3 fL (9.4-12.3); Monocytes Absolute Auto 0.4 X10*3/uL (0.1-1.2); Neutrophils Absolute Auto 5.8 x10*3/uL (2.0-8.3); Neutrophils Percent Auto 81.6 % (45-73); Platelet Count 194 X10*3/uL (160-400); Red Blood Count 4.77 X10*6/uL (4.20-5.50); Red Cell Distribution Width 15.4 % (11.0-16.0); White Blood Count 7.1 X10*3/uL (4.8-10.8)
== END 2022-04-13 06:14 | disposition home or self-care (01) ==
LOC: HO.LHD 06:13
PROVIDERS: Visit Provider Internal Medicine Medical Oncology
DX: N18.9 Chronic kidney disease, unspecified (principal); D63.1 Anemia in chronic kidney disease; C50.919 Malignant neoplasm of unspecified site of unspecified female breast
CPT/HCPCS: 36415; 85025

== ENCOUNTER 2022-04-20 13:54 | Outpatient (REF) | payer MEDICARE, SELFPAY ==
[2022-04-20 11:39] LABS: MANUAL DIFF FLAG NO
[2022-04-20 11:54] LABS: Basophils Percent Auto 0.6 % (0-2); Hematocrit 33.3 % (37.0-47.0); Hemoglobin 10.1 g/dl (12.0-16.0); Imm Gran Abs Auto 0.01 X10*3/uL (0.00-0.03); Imm Gran Pct Auto 0.2 % (0.0-0.4); Lymphocytes Absolute Auto 0.7 X10*3/uL (1.2-4.9); Lymphocytes Percent Auto 13.5 % (20-40); Mean Corpuscular HGB Conc 30.3 g/dl (31.0-35.0); Mean Corpuscular Hemoglobin 24.5 pg (27.0-33.0); Mean Corpuscular Volume 80.8 fL (80.0-98.0); Mean Platelet Volume 10.7 fL (9.4-12.3); Monocytes Absolute Auto 0.3 X10*3/uL (0.1-1.2); Monocytes Percent Auto 5.4 % (2-11); Neutrophils Absolute Auto 4.3 x10*3/uL (2.0-8.3); Neutrophils Percent Auto 80.3 % (45-73); Platelet Count 162 X10*3/uL (160-400); Red Blood Count 4.12 X10*6/uL (4.20-5.50); Red Cell Distribution Width 15.9 % (11.0-16.0); White Blood Count 5.3 X10*3/uL (4.8-10.8)
[2022-04-20 13:13] LABS: Alanine Aminotransferase < 6 U/L (0-31); Albumin Level 3.4 g/dL (3.5-5.0); Alkaline Phosphatase 76 U/L (39-117); Anion Gap 16 (12-20); Aspartate Amino Transferase 8 U/L (5-31); Bilirubin Total 0.7 mg/dL (0.0-1.0); Blood Urea Nitrogen 19 mg/dL (9-16); Calcium 8.6 mg/dL (8.4-10.2); Carbon Dioxide 21 mmol/L (22-29); Chloride 108 mmol/L (96-108); Estimated Glomerular Filt Rate 52; Glucose Random 73 mg/dL (60-115); Iron 27 mcg/dL (30-160); Percent Iron Saturation 14 % (15-50); Potassium 3.7 mmol/L (3.3-5.1); Sodium 141 mmol/L (135-145); Total Iron Binding Capacity 195 mcg/dL (228-428); Total Protein 6.8 g/dL (6.5-8.0); Unsaturated Iron Binding 168 ug/dL
[2022-04-20 13:18] LABS: Ferritin 109 ng/mL (10-250)
== END 2022-04-20 13:55 | disposition home or self-care (01) ==
LOC: HO.LHD 13:54
PROVIDERS: Visit Provider Internal Medicine Medical Oncology
DX: N18.9 Chronic kidney disease, unspecified (principal); D63.1 Anemia in chronic kidney disease; C50.919 Malignant neoplasm of unspecified site of unspecified female breast
CPT/HCPCS: 36415; 80053; 82728; 83540; 85025

== ENCOUNTER 2022-04-27 06:52 | Outpatient (REF) | payer MEDICARE, SELFPAY ==
[2022-04-27 10:37] LABS: MANUAL DIFF FLAG NO
[2022-04-27 10:53] LABS: Basophils Percent Auto 0.6 % (0-2); Hematocrit 32.8 % (37.0-47.0); Hemoglobin 9.9 g/dl (12.0-16.0); Imm Gran Abs Auto 0.05 X10*3/uL (0.00-0.03); Lymphocytes Absolute Auto 0.8 X10*3/uL (1.2-4.9); Lymphocytes Percent Auto 15.8 % (20-40); Mean Corpuscular HGB Conc 30.2 g/dl (31.0-35.0); Mean Corpuscular Hemoglobin 25.3 pg (27.0-33.0); Mean Corpuscular Volume 83.9 fL (80.0-98.0); Mean Platelet Volume 9.6 fL (9.4-12.3); Monocytes Absolute Auto 0.4 X10*3/uL (0.1-1.2); Monocytes Percent Auto 7.2 % (2-11); Neutrophils Absolute Auto 3.8 x10*3/uL (2.0-8.3); Neutrophils Percent Auto 75.4 % (45-73); Platelet Count 159 X10*3/uL (160-400); Red Blood Count 3.91 X10*6/uL (4.20-5.50); Red Cell Distribution Width 17.2 % (11.0-16.0)
== END 2022-04-27 06:53 | disposition home or self-care (01) ==
LOC: HO.LHD 06:52
PROVIDERS: Visit Provider Internal Medicine Medical Oncology
DX: D64.9 Anemia, unspecified (principal); D63.1 Anemia in chronic kidney disease
CPT/HCPCS: 36415; 85025

== ENCOUNTER 2022-05-04 05:44 | Outpatient (REF) | payer MEDICARE, SELFPAY ==
[2022-05-04 13:25] LABS: MANUAL DIFF FLAG NO
[2022-05-04 13:33] LABS: Basophils Percent Auto 0.5 % (0-2); Hematocrit 34.1 % (37.0-47.0); Imm Gran Abs Auto 0.02 X10*3/uL (0.00-0.03); Imm Gran Pct Auto 0.3 % (0.0-0.4); Lymphocytes Absolute Auto 0.9 X10*3/uL (1.2-4.9); Lymphocytes Percent Auto 15.4 % (20-40); Mean Corpuscular HGB Conc 29.3 g/dl (31.0-35.0); Mean Corpuscular Hemoglobin 25.2 pg (27.0-33.0); Mean Corpuscular Volume 85.9 fL (80.0-98.0); Mean Platelet Volume 10.2 fL (9.4-12.3); Monocytes Absolute Auto 0.3 X10*3/uL (0.1-1.2); Monocytes Percent Auto 4.6 % (2-11); Neutrophils Absolute Auto 4.7 x10*3/uL (2.0-8.3); Neutrophils Percent Auto 79.2 % (45-73); Platelet Count 178 X10*3/uL (160-400); Red Blood Count 3.97 X10*6/uL (4.20-5.50); Red Cell Distribution Width 18.5 % (11.0-16.0); White Blood Count 5.9 X10*3/uL (4.8-10.8)
== END 2022-05-04 05:45 | disposition home or self-care (01) ==
LOC: HO.LHD 05:44
PROVIDERS: Visit Provider Internal Medicine Medical Oncology
DX: C50.919 Malignant neoplasm of unspecified site of unspecified female breast (principal); N18.9 Chronic kidney disease, unspecified; D63.1 Anemia in chronic kidney disease
CPT/HCPCS: 36415; 85025

== ENCOUNTER 2022-05-11 06:09 | Outpatient (REF) | payer MEDICARE, SELFPAY ==
[2022-05-11 11:48] LABS: MANUAL DIFF FLAG NO
[2022-05-11 12:03] LABS: Basophils Percent Auto 0.7 % (0-2); Hematocrit 34.6 % (37.0-47.0); Hemoglobin 10.1 g/dl (12.0-16.0); Imm Gran Abs Auto 0.02 X10*3/uL (0.00-0.03); Imm Gran Pct Auto 0.5 % (0.0-0.4); Lymphocytes Absolute Auto 0.8 X10*3/uL (1.2-4.9); Lymphocytes Percent Auto 18.7 % (20-40); Mean Corpuscular HGB Conc 29.2 g/dl (31.0-35.0); Mean Corpuscular Hemoglobin 24.6 pg (27.0-33.0); Mean Corpuscular Volume 84.4 fL (80.0-98.0); Mean Platelet Volume 10.2 fL (9.4-12.3); Monocytes Absolute Auto 0.3 X10*3/uL (0.1-1.2); Monocytes Percent Auto 5.7 % (2-11); Neutrophils Absolute Auto 3.3 x10*3/uL (2.0-8.3); Neutrophils Percent Auto 74.4 % (45-73); Platelet Count 179 X10*3/uL (160-400); Red Cell Distribution Width 18.3 % (11.0-16.0); White Blood Count 4.4 X10*3/uL (4.8-10.8)
== END 2022-05-11 06:10 | disposition home or self-care (01) ==
LOC: HO.LHD 06:09
PROVIDERS: Visit Provider Internal Medicine Medical Oncology
DX: N18.9 Chronic kidney disease, unspecified (principal); D63.1 Anemia in chronic kidney disease; C50.919 Malignant neoplasm of unspecified site of unspecified female breast
CPT/HCPCS: 36415; 85025

== ENCOUNTER 2022-05-18 10:32 | Outpatient (REF) | payer MEDICARE, SELFPAY ==
[2022-05-18 09:37] LABS: MANUAL DIFF FLAG NO
[2022-05-18 09:39] LABS: Basophils Percent Auto 0.6 % (0-2); Eosinophils Absolute Auto 0.1 X10*3/uL (0.0-0.4); Eosinophils Percent Auto 1.1 % (0-4); Hematocrit 39.2 % (37.0-47.0); Hemoglobin 11.5 g/dl (12.0-16.0); Imm Gran Abs Auto 0.03 X10*3/uL (0.00-0.03); Imm Gran Pct Auto 0.4 % (0.0-0.4); Lymphocytes Absolute Auto 0.9 X10*3/uL (1.2-4.9); Lymphocytes Percent Auto 12.1 % (20-40); Mean Corpuscular HGB Conc 29.3 g/dl (31.0-35.0); Mean Corpuscular Hemoglobin 25.1 pg (27.0-33.0); Mean Corpuscular Volume 85.4 fL (80.0-98.0); Mean Platelet Volume 9.5 fL (9.4-12.3); Monocytes Absolute Auto 0.4 X10*3/uL (0.1-1.2); Monocytes Percent Auto 5.8 % (2-11); Neutrophils Absolute Auto 5.7 x10*3/uL (2.0-8.3); Platelet Count 221 X10*3/uL (160-400); Red Blood Count 4.59 X10*6/uL (4.20-5.50); Red Cell Distribution Width 17.9 % (11.0-16.0); White Blood Count 7.1 X10*3/uL (4.8-10.8)
== END 2022-05-18 10:33 | disposition home or self-care (01) ==
LOC: HO.LHD 10:32
PROVIDERS: Visit Provider Internal Medicine Medical Oncology
DX: C50.919 Malignant neoplasm of unspecified site of unspecified female breast (principal)
CPT/HCPCS: 36415; 85025

== ENCOUNTER 2022-05-25 13:57 | Outpatient (REF) | payer MEDICARE, SELFPAY ==
[2022-05-25 11:51] LABS: MANUAL DIFF FLAG NO
[2022-05-25 11:58] LABS: Basophils Percent Auto 0.6 % (0-2); Hematocrit 32.8 % (37.0-47.0); Hemoglobin 9.7 g/dl (12.0-16.0); Imm Gran Abs Auto 0.01 X10*3/uL (0.00-0.03); Imm Gran Pct Auto 0.2 % (0.0-0.4); Lymphocytes Absolute Auto 0.7 X10*3/uL (1.2-4.9); Lymphocytes Percent Auto 13.5 % (20-40); Mean Corpuscular HGB Conc 29.6 g/dl (31.0-35.0); Mean Corpuscular Hemoglobin 24.8 pg (27.0-33.0); Mean Corpuscular Volume 83.9 fL (80.0-98.0); Mean Platelet Volume 9.7 fL (9.4-12.3); Monocytes Absolute Auto 0.3 X10*3/uL (0.1-1.2); Monocytes Percent Auto 5.7 % (2-11); Neutrophils Absolute Auto 4.1 x10*3/uL (2.0-8.3); Platelet Count 142 X10*3/uL (160-400); Red Blood Count 3.91 X10*6/uL (4.20-5.50); Red Cell Distribution Width 16.5 % (11.0-16.0); White Blood Count 5.1 X10*3/uL (4.8-10.8)
== END 2022-05-25 13:58 | disposition home or self-care (01) ==
LOC: HO.LHD 13:57
PROVIDERS: Visit Provider Internal Medicine Medical Oncology
DX: N18.9 Chronic kidney disease, unspecified (principal); D63.1 Anemia in chronic kidney disease; C50.919 Malignant neoplasm of unspecified site of unspecified female breast
CPT/HCPCS: 36415; 85025

== ENCOUNTER 2022-06-01 10:43 | Outpatient (REF) | payer MEDICARE, SELFPAY ==
[2022-06-01 09:17] LABS: MANUAL DIFF FLAG NO
[2022-06-01 09:20] LABS: Basophils Percent Auto 0.2 % (0-2); Hematocrit 34.4 % (37.0-47.0); Hemoglobin 10.4 g/dl (12.0-16.0); Imm Gran Abs Auto 0.02 X10*3/uL (0.00-0.03); Imm Gran Pct Auto 0.4 % (0.0-0.4); Lymphocytes Absolute Auto 0.4 X10*3/uL (1.2-4.9); Mean Corpuscular HGB Conc 30.2 g/dl (31.0-35.0); Mean Corpuscular Hemoglobin 24.5 pg (27.0-33.0); Mean Corpuscular Volume 81.1 fL (80.0-98.0); Mean Platelet Volume 10.1 fL (9.4-12.3); Monocytes Absolute Auto 0.2 X10*3/uL (0.1-1.2); Monocytes Percent Auto 4.7 % (2-11); Neutrophils Percent Auto 85.7 % (45-73); Platelet Count 141 X10*3/uL (160-400); Red Blood Count 4.24 X10*6/uL (4.20-5.50); Red Cell Distribution Width 17.3 % (11.0-16.0); White Blood Count 4.7 X10*3/uL (4.8-10.8)
== END 2022-06-01 10:44 | disposition home or self-care (01) ==
LOC: HO.LHD 10:43
PROVIDERS: Visit Provider Internal Medicine Medical Oncology
DX: N18.9 Chronic kidney disease, unspecified (principal); D63.1 Anemia in chronic kidney disease
CPT/HCPCS: 36415; 85025

== ENCOUNTER 2022-06-08 12:39 | Outpatient (REF) | payer MEDICARE, SELFPAY ==
[2022-06-08 10:08] LABS: MANUAL DIFF FLAG NO
[2022-06-08 10:17] LABS: Basophils Percent Auto 0.3 % (0-2); Eosinophils Percent Auto 0.2 % (0-4); Hematocrit 38.6 % (37.0-47.0); Hemoglobin 11.5 g/dl (12.0-16.0); Imm Gran Abs Auto 0.05 X10*3/uL (0.00-0.03); Imm Gran Pct Auto 0.8 % (0.0-0.4); Lymphocytes Percent Auto 16.7 % (20-40); Mean Corpuscular HGB Conc 29.8 g/dl (31.0-35.0); Mean Corpuscular Hemoglobin 24.6 pg (27.0-33.0); Mean Corpuscular Volume 82.7 fL (80.0-98.0); Mean Platelet Volume 9.8 fL (9.4-12.3); Monocytes Absolute Auto 0.4 X10*3/uL (0.1-1.2); Monocytes Percent Auto 6.9 % (2-11); Neutrophils Absolute Auto 4.4 x10*3/uL (2.0-8.3); Neutrophils Percent Auto 75.1 % (45-73); Platelet Count 296 X10*3/uL (160-400); Red Blood Count 4.67 X10*6/uL (4.20-5.50); Red Cell Distribution Width 16.9 % (11.0-16.0); White Blood Count 5.9 X10*3/uL (4.8-10.8)
== END 2022-06-08 12:40 | disposition home or self-care (01) ==
LOC: HO.LHD 12:39
PROVIDERS: Visit Provider Internal Medicine Medical Oncology
DX: C50.919 Malignant neoplasm of unspecified site of unspecified female breast (principal); N18.9 Chronic kidney disease, unspecified; D63.1 Anemia in chronic kidney disease
CPT/HCPCS: 36415; 85025

== ENCOUNTER 2022-06-15 05:58 | Outpatient (REF) | payer MEDICARE, SELFPAY ==
[2022-06-15 11:48] LABS: MANUAL DIFF FLAG NO
[2022-06-15 11:51] LABS: Basophils Percent Auto 0.5 % (0-2); Hematocrit 31.4 % (37.0-47.0); Hemoglobin 9.3 g/dl (12.0-16.0); Imm Gran Abs Auto 0.02 X10*3/uL (0.00-0.03); Imm Gran Pct Auto 0.3 % (0.0-0.4); Lymphocytes Absolute Auto 0.9 X10*3/uL (1.2-4.9); Lymphocytes Percent Auto 14.4 % (20-40); Mean Corpuscular HGB Conc 29.6 g/dl (31.0-35.0); Mean Corpuscular Hemoglobin 24.6 pg (27.0-33.0); Mean Corpuscular Volume 83.1 fL (80.0-98.0); Mean Platelet Volume 10.9 fL (9.4-12.3); Monocytes Absolute Auto 0.4 X10*3/uL (0.1-1.2); Monocytes Percent Auto 6.3 % (2-11); Neutrophils Absolute Auto 4.9 x10*3/uL (2.0-8.3); Neutrophils Percent Auto 78.5 % (45-73); Platelet Count 188 X10*3/uL (160-400); Red Blood Count 3.78 X10*6/uL (4.20-5.50); Red Cell Distribution Width 16.9 % (11.0-16.0); White Blood Count 6.2 X10*3/uL (4.8-10.8)
== END 2022-06-15 05:59 | disposition home or self-care (01) ==
LOC: HO.LHD 05:58
PROVIDERS: Visit Provider Internal Medicine Medical Oncology
DX: N18.9 Chronic kidney disease, unspecified (principal); D63.1 Anemia in chronic kidney disease
CPT/HCPCS: 36415; 85025

== ENCOUNTER 2022-06-22 | Outpatient (REF) | payer MEDICARE, SELFPAY ==
[2022-06-22 11:43] LABS: MANUAL DIFF FLAG NO
[2022-06-22 11:52] LABS: Basophils Percent Auto 0.6 % (0-2); Hematocrit 29.8 % (37.0-47.0); Imm Gran Abs Auto 0.02 X10*3/uL (0.00-0.03); Imm Gran Pct Auto 0.4 % (0.0-0.4); Lymphocytes Absolute Auto 0.8 X10*3/uL (1.2-4.9); Lymphocytes Percent Auto 16.6 % (20-40); Mean Corpuscular HGB Conc 30.2 g/dl (31.0-35.0); Mean Corpuscular Hemoglobin 25.9 pg (27.0-33.0); Mean Corpuscular Volume 85.6 fL (80.0-98.0); Mean Platelet Volume 10.5 fL (9.4-12.3); Monocytes Absolute Auto 0.3 X10*3/uL (0.1-1.2); Monocytes Percent Auto 6.7 % (2-11); Neutrophils Absolute Auto 3.5 x10*3/uL (2.0-8.3); Neutrophils Percent Auto 75.7 % (45-73); Platelet Count 169 X10*3/uL (160-400); Red Blood Count 3.48 X10*6/uL (4.20-5.50); Red Cell Distribution Width 19.2 % (11.0-16.0); White Blood Count 4.7 X10*3/uL (4.8-10.8)
[2022-06-22 12:33] LABS: Alanine Aminotransferase 6 U/L (0-31); Albumin Level 3.2 g/dL (3.5-5.0); Alkaline Phosphatase 93 U/L (39-117); Anion Gap 11 (12-20); Aspartate Amino Transferase 8 U/L (5-31); Bilirubin Total 0.7 mg/dL (0.0-1.0); Blood Urea Nitrogen 17 mg/dL (9-16); Calcium 8.2 mg/dL (8.4-10.2); Carbon Dioxide 26 mmol/L (22-29); Chloride 108 mmol/L (96-108); Estimated Glomerular Filt Rate 52; Glucose Random 80 mg/dL (60-115); Potassium 3.8 mmol/L (3.3-5.1); Sodium 141 mmol/L (135-145); Total Protein 6.6 g/dL (6.5-8.0)
== END 2022-06-22 00:01 | disposition home or self-care (01) ==
LOC: HO.LHD
PROVIDERS: Visit Provider Internal Medicine Medical Oncology
DX: N18.9 Chronic kidney disease, unspecified (principal); D63.1 Anemia in chronic kidney disease
CPT/HCPCS: 36415; 80053; 85025

== ENCOUNTER 2022-07-06 | Outpatient (REF) | payer MEDICARE, SELFPAY ==
[2022-07-06 11:52] LABS: MANUAL DIFF FLAG NO
[2022-07-06 12:07] LABS: Basophils Percent Auto 0.5 % (0-2); Hematocrit 33.1 % (37.0-47.0); Hemoglobin 9.7 g/dl (12.0-16.0); Imm Gran Abs Auto 0.04 X10*3/uL (0.00-0.03); Imm Gran Pct Auto 0.7 % (0.0-0.4); Lymphocytes Absolute Auto 0.7 X10*3/uL (1.2-4.9); Lymphocytes Percent Auto 10.9 % (20-40); Mean Corpuscular HGB Conc 29.3 g/dl (31.0-35.0); Mean Corpuscular Hemoglobin 25.7 pg (27.0-33.0); Mean Corpuscular Volume 87.6 fL (80.0-98.0); Mean Platelet Volume 9.9 fL (9.4-12.3); Monocytes Absolute Auto 0.3 X10*3/uL (0.1-1.2); Monocytes Percent Auto 4.9 % (2-11); Neutrophils Absolute Auto 5.1 x10*3/uL (2.0-8.3); Platelet Count 179 X10*3/uL (160-400); Red Blood Count 3.78 X10*6/uL (4.20-5.50); Red Cell Distribution Width 18.2 % (11.0-16.0); White Blood Count 6.1 X10*3/uL (4.8-10.8)
== END 2022-07-06 00:01 ==
LOC: HO.LNP
PROVIDERS: Visit Provider Internal Medicine Medical Oncology
DX: N18.9 Chronic kidney disease, unspecified (principal); D63.1 Anemia in chronic kidney disease
CPT/HCPCS: 85025

== ENCOUNTER 2022-07-13 | Outpatient (REF) | payer MEDICARE, SELFPAY ==
[2022-07-13 10:37] LABS: MANUAL DIFF FLAG NO
[2022-07-13 11:00] LABS: Basophils Percent Auto 0.5 % (0-2); Hematocrit 30.9 % (37.0-47.0); Hemoglobin 9.4 g/dl (12.0-16.0); Imm Gran Abs Auto 0.04 X10*3/uL (0.00-0.03); Imm Gran Pct Auto 0.7 % (0.0-0.4); Lymphocytes Absolute Auto 0.7 X10*3/uL (1.2-4.9); Lymphocytes Percent Auto 12.5 % (20-40); Mean Corpuscular HGB Conc 30.4 g/dl (31.0-35.0); Mean Corpuscular Volume 85.4 fL (80.0-98.0); Mean Platelet Volume 9.5 fL (9.4-12.3); Monocytes Absolute Auto 0.4 X10*3/uL (0.1-1.2); Monocytes Percent Auto 6.1 % (2-11); Neutrophils Absolute Auto 4.6 x10*3/uL (2.0-8.3); Neutrophils Percent Auto 80.2 % (45-73); Platelet Count 190 X10*3/uL (160-400); Red Blood Count 3.62 X10*6/uL (4.20-5.50); Red Cell Distribution Width 18.3 % (11.0-16.0); White Blood Count 5.8 X10*3/uL (4.8-10.8)
== END 2022-07-13 00:01 ==
LOC: HO.LHD
PROVIDERS: Visit Provider Internal Medicine Medical Oncology
DX: N18.9 Chronic kidney disease, unspecified (principal); D63.1 Anemia in chronic kidney disease
CPT/HCPCS: 36415; 85025

== ENCOUNTER 2022-07-20 06:43 | Outpatient (REF) | payer MEDICARE, SELFPAY ==
[2022-07-20 11:43] LABS: MANUAL DIFF FLAG NO
[2022-07-20 11:56] LABS: Basophils Percent Auto 0.5 % (0-2); Hematocrit 32.1 % (37.0-47.0); Hemoglobin 9.7 g/dl (12.0-16.0); Imm Gran Abs Auto 0.02 X10*3/uL (0.00-0.03); Imm Gran Pct Auto 0.4 % (0.0-0.4); Lymphocytes Absolute Auto 0.5 X10*3/uL (1.2-4.9); Lymphocytes Percent Auto 9.3 % (20-40); Mean Corpuscular HGB Conc 30.2 g/dl (31.0-35.0); Mean Corpuscular Hemoglobin 26.4 pg (27.0-33.0); Mean Corpuscular Volume 87.5 fL (80.0-98.0); Mean Platelet Volume 10.8 fL (9.4-12.3); Monocytes Absolute Auto 0.2 X10*3/uL (0.1-1.2); Monocytes Percent Auto 4.3 % (2-11); Neutrophils Absolute Auto 4.8 x10*3/uL (2.0-8.3); Neutrophils Percent Auto 85.5 % (45-73); Platelet Count 187 X10*3/uL (160-400); Red Blood Count 3.67 X10*6/uL (4.20-5.50); Red Cell Distribution Width 18.4 % (11.0-16.0); White Blood Count 5.6 X10*3/uL (4.8-10.8)
== END 2022-07-20 06:44 | disposition home or self-care (01) ==
LOC: HO.LHD 06:43
PROVIDERS: Visit Provider Internal Medicine Medical Oncology
DX: N18.9 Chronic kidney disease, unspecified (principal); D63.1 Anemia in chronic kidney disease; C50.919 Malignant neoplasm of unspecified site of unspecified female breast
CPT/HCPCS: 36415; 85025

== ENCOUNTER 2022-07-27 06:47 | Outpatient (REF) | payer MEDICARE, SELFPAY ==
[2022-07-27 11:56] LABS: Hematocrit 34.9 % (37.0-47.0); Hemoglobin 10.4 g/dl (12.0-16.0); Mean Corpuscular HGB Conc 29.8 g/dl (31.0-35.0); Mean Corpuscular Hemoglobin 25.2 pg (27.0-33.0); Mean Corpuscular Volume 84.7 fL (80.0-98.0); Mean Platelet Volume 10.1 fL (9.4-12.3); Platelet Count 232 X10*3/uL (160-400); Red Blood Count 4.12 X10*6/uL (4.20-5.50); Red Cell Distribution Width 17.3 % (11.0-16.0)
== END 2022-07-27 06:48 | disposition home or self-care (01) ==
LOC: HO.LHD 06:47
PROVIDERS: Visit Provider Internal Medicine Medical Oncology
DX: N18.9 Chronic kidney disease, unspecified (principal); D63.1 Anemia in chronic kidney disease
CPT/HCPCS: 36415; 85027

== ENCOUNTER 2022-08-03 07:38 | Outpatient (REF) | payer MEDICARE, SELFPAY ==
[2022-08-03 10:14] LABS: MANUAL DIFF FLAG NO
[2022-08-03 10:24] LABS: Basophils Percent Auto 0.7 % (0-2); Hematocrit 33.8 % (37.0-47.0); Imm Gran Abs Auto 0.01 X10*3/uL (0.00-0.03); Imm Gran Pct Auto 0.2 % (0.0-0.4); Lymphocytes Absolute Auto 0.9 X10*3/uL (1.2-4.9); Lymphocytes Percent Auto 14.3 % (20-40); Mean Corpuscular HGB Conc 29.6 g/dl (31.0-35.0); Mean Corpuscular Hemoglobin 25.1 pg (27.0-33.0); Mean Corpuscular Volume 84.7 fL (80.0-98.0); Mean Platelet Volume 9.9 fL (9.4-12.3); Monocytes Absolute Auto 0.3 X10*3/uL (0.1-1.2); Neutrophils Absolute Auto 4.8 x10*3/uL (2.0-8.3); Neutrophils Percent Auto 79.8 % (45-73); Platelet Count 189 X10*3/uL (160-400); Red Blood Count 3.99 X10*6/uL (4.20-5.50); Red Cell Distribution Width 16.1 % (11.0-16.0)
== END 2022-08-03 07:39 | disposition home or self-care (01) ==
LOC: HO.LHD 07:38
PROVIDERS: Visit Provider Internal Medicine Medical Oncology
DX: N18.9 Chronic kidney disease, unspecified (principal); D63.1 Anemia in chronic kidney disease
CPT/HCPCS: 36415; 85025

== ENCOUNTER 2022-09-20 15:45 | Outpatient (AMB) | payer MEDICARE, SELFPAY ==
--- NOTE | 2022-09-20 15:47 | AM.OFFWIN_ITS ---
Intake Vital Signs 09/20/22 15:52 BP 106/58 L Blood Pressure Location Lt brachial Position Sitting Pulse 58 Pulse Source Pulse Oximeter Temp 98 F Temp Source Temporal Artery Scan Pulse Oximetry (%) 98 Oxygen Delivery Method Room Air Intake Visit Reasons: EST/throat hurting and cough Intake Note: Patient here for a bad sore throat,cough and raspy voice, she has been coughing up phlegm and it mostly happens at night for about a week Patient Tobacco Use Status: Never used Tobacco Allergies cephalexin [From KEFLEX] Allergy (Unknown, Verified 09/20/22 16:31) pt cannot remember reaction codeine [CODEINE] Allergy (Unknown, Verified 09/20/22 16:31) MOOD CHANGE, dizziness indigotindisulfonic acid [Indigo [employer]] Allergy (Unknown, Verified 09/20/22 16:31) increased blood pressure blue dye [BLUE DYE] Adverse Reaction (Intermediate, Verified 09/20/22 16:31) ELEVATED BLOOD PRESSURE lisinopril [LISINOPRIL] Adverse Reaction (Unknown, Verified 09/20/22 16:31) cough, dry cough simvastatin [From ZOCOR] Adverse Reaction (Unknown, Verified 09/20/22 16:31) pt can't remember reaction Medication List - Last Reconciled 09/20/22 by Manny Meyer MD aspirin (Adult Low Dose Aspirin) 81 mg PO DAILY azithromycin (Zithromax) take 500 mg today (day 1), then 250 mg for 4 days (days 2-5) PO calcium carbonate 1 tab PO BID cholecalciferol (vitamin D3) 25 mcg PO DAILY loratadine (Allergy Relief (loratadine)) 10 mg PO DAILY PRN mesalamine 3 caps PO BID metoprolol succinate ER 25 mg PO DAILY 90 days Do you need a note to return to daycare/school/sports/work: No HPI EST/throat hurting and cough HPI Details Patient presents for a sick visit. Reporting symptoms of sinus congestion, sore throat and difficulty swallowing. Low-grade fever. No family member is sick. No recent travel. Patient reports symptoms of malaise and fatigue. [facility] Medical History Cholecystectomy planned Diarrhea History of breast cancer History of breast cancer Surgical History History of colonoscopy History of esophagogastroduodenoscopy (EGD) History of excision of mass History of hip surgery History of hysterectomy History of lumpectomy of right breast History of mammogram Family History Father CHF (congestive heart failure) Mother Diabetes mellitus Brother No problems noted. Sister No problems noted. Daughter No problems noted. Son No problems noted. Son No problems noted. Social History Household Members: None Housing: House Are you a primary wound care physician to a significant other at home: No Do you presently have visiting nurse or other home services: No Alcohol intake: never Patient Tobacco Use Status: Never used Tobacco e-Cigarette/Vaping Use: Never Used service: No Current occupational status: retired Cognitive needs: No Hearing needs: No Vision needs: Yes Physical Exam Vital Signs: Last Vital Signs Temp 98 F 09/20/22 15:52 Pulse 58 09/20/22 15:52 BP 106/58 L 09/20/22 15:52 Pulse Ox 98 09/20/22 15:52 Oxygen Delivery Method Room Air 09/20/22 15:52 Const General: cooperative and healthy appearing Nutritional Appearance: well nourished Orientation/consciousness: patient oriented x3 Limitations: no limitations HEENT Head: Yes normal to inspection Eyes General: appearance normal, both eyes and all related structures Neck Neck: Yes normal visual inspection Chest Chest palpation & inspection: normal palpation of entire chest wall Resp Effort & Inspection: normal respiratory effort Neuro General: patient oriented x3 Assessment & Plan Assessment & Plan (1) Upper respiratory tract infection: Code(s): J06.9 - Acute upper respiratory infection, unspecified Medications: New azithromycin (Zithromax) take 500 mg today (day 1), then 250 mg for 4 days (days 2-5) PO 6 tabs 0RF Patient Instructions: Antibiotics ordered. Increase fluid intake. Tylenol for aches and pains. If symptoms worsen, follow-up here for a recheck. Coding Level of Care Code Est Pt Level 3 (70141) Diagnoses Upper respiratory tract infection J06.9
[2022-09-20 15:52] VITALS: BP 106/58; PULSE 58; TEMP 36.6; O2SAT 98
== END 2022-09-20 16:09 | disposition home or self-care (01) ==
PROVIDERS: PCP Internal Medicine; Visit Provider Internal Medicine
DX: J06.9 Acute upper respiratory infection, unspecified (principal)
CPT/HCPCS: 99213

== ENCOUNTER 2022-10-31 14:00 | Outpatient (REF) | payer MEDICARE, SELFPAY | END 2022-10-31 14:01 | disposition home or self-care (01) | LOC: HO.MAMMO 14:00 | PROVIDERS: PCP Internal Medicine; Visit Provider Internal Medicine Medical Oncology | DX: Z13.89 Encounter for screening for other disorder (principal) ==

== ENCOUNTER 2022-11-08 14:00 | Outpatient (AMB) | payer MEDICARE, SELFPAY ==
--- NOTE | 2022-11-08 14:04 | A.OFFPC_ITS ---
Vital Signs 11/08/22 14:07 Height 5 ft 1 in Weight 96 lb BMI 18.1 BP 142/68 H Blood Pressure Location Lt brachial Position Sitting Pulse 60 Pulse Source Pulse Oximeter Pulse Oximetry (%) 100 Oxygen Delivery Method Room Air Intake Visit Reasons: Injured back lifting Allergies cephalexin [From KEFLEX] Allergy (Unknown, Verified 11/08/22 14:07) pt cannot remember reaction codeine [CODEINE] Allergy (Unknown, Verified 11/08/22 14:07) MOOD CHANGE, dizziness indigotindisulfonic acid [Indigo [employer]] Allergy (Unknown, Verified 11/08/22 14:07) increased blood pressure blue dye [BLUE DYE] Adverse Reaction (Intermediate, Verified 11/08/22 14:07) ELEVATED BLOOD PRESSURE lisinopril [LISINOPRIL] Adverse Reaction (Unknown, Verified 11/08/22 14:07) cough, dry cough simvastatin [From ZOCOR] Adverse Reaction (Unknown, Verified 11/08/22 14:07) pt can't remember reaction Medication List - Last Reconciled 11/08/22 by Regina Cole MD aspirin (Adult Low Dose Aspirin) 81 mg PO DAILY azithromycin (Zithromax) take 500 mg today (day 1), then 250 mg for 4 days (days 2-5) PO calcium carbonate 1 tab PO BID cholecalciferol (vitamin D3) 25 mcg PO DAILY loratadine (Allergy Relief (loratadine)) 10 mg PO DAILY PRN mesalamine 3 caps PO BID metoprolol succinate ER 25 mg PO DAILY 90 days Tobacco use date assessed: 11/08/22 Fall risk assessment: No Falls in past year Last assessed Fall Risk: 11/08/22 Dental Screening Dental Screen Date: 11/08/22 Did you have a dental visit in the last 12 months?: No Did you have a dental problem in the last 6 months where you did not have access to dental care?: No Was dental information given to patient?: No HPI Injured back lifting HPI Details Patient is 82-year-old female with a history of osteoporosis last bone density is dated June 2021 in the chart with a T-score of -3.7 Patient lifted a heavy plantar and started having pain lumbar area which is nonradiating. She is taking Tylenol which is not helping with the pain. I have ordered x-ray of her lumbar spine meanwhile I would recommend patient start wearing a back brace and buy [id number] Lidoderm patches. She is also complaining of pain right ear she was seen in walk-in clinic and was given amoxicillin which has not helped her Examination her right ear is filled with hard cerumen. She will be using Debrox ear drops for 5 nights and will come back next Monday, so we can flush her ear. [facility] Medical History Cholecystectomy planned Diarrhea History of breast cancer History of breast cancer Surgical History History of colonoscopy History of esophagogastroduodenoscopy (EGD) History of excision of mass History of hip surgery History of hysterectomy History of lumpectomy of right breast History of mammogram Family History Father CHF (congestive heart failure) Mother Diabetes mellitus Brother No problems noted. Sister No problems noted. Daughter No problems noted. Son No problems noted. Son No problems noted. Social History Household Members: None Housing: House Are you a primary pharmacy care coordinator to a significant other at home: No Do you presently have visiting nurse or other home services: No Alcohol intake: never Patient Tobacco Use Status: Never used Tobacco e-Cigarette/Vaping Use: Never Used service: No Current occupational status: retired Cognitive needs: No Hearing needs: No Vision needs: Yes Questionnaire PHQ-9 Over the last 2 weeks, how often have you been bothered by any of the following problems? 1. Little interest or pleasure in doing things: not at all 2. Feeling down, depressed, or hopeless: not at all 3. Trouble falling or staying asleep, or sleeping too much: not at all 4. Feeling tired or having little energy: several days 5. Poor appetite or overeating: not at all 6. Feeling bad about yourself - or that you are a failure or have let yourself or your family down: not at all 7. Trouble concentrating on things, such as reading the newspaper or watching television: not at all 8. Moving or speaking so slowly that other people could have noticed. Or the opposite - being so fidgety or restless that you have been moving around a lot more than usual: not at all 9. Thoughts that you would be better off or of hurting yourself in some way: not at all Total score: 1 Depression Screening Interpretation: Negative 44387 - PHQ-9 Billing: Yes Source: Developed by Drs. John Ndiaye, Naya Velasco, Mitch Lenz and colleagues, with an educational rhiannon from [employer]. Thrive Questionnaire Date Thrive assessed: 11/13/20 AUDIT C Alcohol Use Questionnaire (AUDIT-C) 1. How often do you have a drink containing alcohol?: Never 3. How often do you have six or more drinks on one occasion?: Never Total Score: 0 Score Reviewed/Action Taken: Yes Review of Systems Const Denies chills and Denies fever(s) ENT Denies epistaxis and Denies nasal discharge Card Denies chest pain Resp Denies chest congestion, Denies cough and Denies hemoptysis GI Denies diarrhea and Denies nausea Skin/Breast Denies rash Neuro Reports no additional complaints Psych Reports no additional complaints Endo Reports no additional complaints Physical exam (Primary Care) Vital Signs: Last Vital Signs Pulse 60 11/08/22 14:07 BP 142/68 H 11/08/22 14:07 Pulse Ox 100 11/08/22 14:07 Oxygen Delivery Method Room Air 11/08/22 14:07 BMI result Body Mass Index 18.1 Tobacco/Smoking Status: Tobacco use Status Tobacco use date assessed 11/08/22 11/08/22 14:10 Patient Tobacco Use Status Never used Tobacco 11/08/22 14:05 e-Cigarette/Vaping Use Never Used 11/08/22 14:05 Depression Screening Interpretation: Negative Thrive Assessment: Date of Thrive Assessment Date Thrive assessed 11/13/20 11/08/22 14:05 Const General: cooperative, comfortable and no acute distress Orientation/consciousness: patient oriented x3 HENMT Other: Right ear filled with hard cerumen Head: Yes normocephalic Eyes General: appearance normal, both eyes and all related structures Neck Neck: Yes supple Resp Effort & Inspection: normal respiratory effort, no cough and no stridor Cardio Rhythm: regular rhythm Heart sounds: S1 normal heart sound present and S2 normal heart sound present Back/Spine/Pelvis Back/spine/pelvis image: 1. Site of pain with percussion straight leg negative bilateral, motor sensory intact Skin General skin exam: turgor normal Neuro General: patient oriented x3, tone normal and moves all extremities Extrem Right lower extremity: no edema Left lower extremity: no edema Assessment and Plan Assessment & Plan (1) Osteoporosis: Code(s): M81.0 - Age-related osteoporosis without current pathological fracture (2) Lumbar back pain: Code(s): M54.50 - Low back pain, unspecified (3) Impacted cerumen, right ear: Code(s): H61.21 - Impacted cerumen, right ear (4) Pain in right ear: Code(s): H92.01 - Otalgia, right ear Plan Patient is 82-year-old female with a history of osteoporosis last bone density is dated June 2021 in the chart with a T-score of -3.7 Patient lifted a heavy plantar and started having pain lumbar area which is nonradiating. She is taking Tylenol which is not helping with the pain. I have ordered x-ray of her lumbar spine meanwhile I would recommend patient start wearing a back brace and buy [id number] Lidoderm patches. She is also complaining of pain right ear she was seen in walk-in clinic and was given amoxicillin which has not helped her Examination her right ear is filled with hard cerumen. She will be using Debrox ear drops for 5 nights and will come back next Monday, so we can flush her e ar. Orders: Orders XR lumbar spine 2-3V Today M54.50 - Low back pain, unspecified, M81.0 - Age- related osteoporosis without current pathological fracture Coding Level of Care Code Est Pt Level 4 (71876) Diagnoses Osteoporosis M81.0 Lumbar back pain M54.50 Impacted cerumen, right ear H61.21 Pain in right ear H92.01
[2022-11-08 14:07] VITALS: BP 142/68; PULSE 60; O2SAT 100; BMI 18.1
== END 2022-11-08 14:32 | disposition home or self-care (01) ==
PROVIDERS: PCP Internal Medicine; Visit Provider Internal Medicine
DX: M81.0 Age-related osteoporosis without current pathological fracture (principal); M54.50 Low back pain, unspecified; H61.21 Impacted cerumen, right ear; H92.01 Otalgia, right ear
CPT/HCPCS: 99214

== ENCOUNTER 2022-11-08 14:30 | Outpatient (REF) | payer MEDICARE, SELFPAY ==
--- NOTE | ~2022-11-08 | XR_ITS ---
EXAMINATION: XR LUMBOSACRAL SPINE CLINICAL INFORMATION: Low back pain COMPARISON: CT abdomen and pelvis from 01/02/2020 TECHNIQUE: Three views of the lumbosacral spine. FINDINGS: No new abnormalities in the lumbar spine compared to 01/02/2020. There is chronic dextroscoliosis of the lower thoracic and lumbar spine, apex of curvature at L1-L2. Findings include chronic grade 1 right lateral listhesis and anterolisthesis at L3-L4. There is multilevel degenerative disc space narrowing and osteophyte formation lumbar spine. The degenerative disc disease is worst at L1-L2 and L4-L5. There is chronic minimal depression of the L1 superior endplate. No acute vertebral compression fractures. Sacrum and sacroiliac joints are unremarkable. There is extensive atherosclerotic calcification of the aorta and iliac arteries. Cholecystectomy clips are present in the right upper abdomen. No dilated bowel loops. The left femoral fixation hardware is partially included in the [id number]. XR/XR lumbar spine 2-3V IMPRESSION: * No acute abnormalities in the degenerated, dextroscoliotic lumbar spine compared to 01/02/2020. * Chronic, grade 1 right lateral listhesis and anterolisthesis at L3-L4. 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
== END 2022-11-08 14:31 | disposition home or self-care (01) ==
LOC: HO.HMGCX 14:30
PROVIDERS: PCP Internal Medicine; Visit Provider Internal Medicine
DX: M54.50 Low back pain, unspecified (principal); M81.0 Age-related osteoporosis without current pathological fracture
CPT/HCPCS: 72100

== ENCOUNTER 2022-11-16 08:26 | Outpatient (AMB) | payer MEDICARE, SELFPAY ==
[2022-11-16 08:32] VITALS: BP 100/66; PULSE 84; O2SAT 100; BMI 17.6
--- NOTE | 2022-11-16 08:32 | MHC.PC.OV ---
Vital Signs 11/16/22 08:32 Height 5 ft 1 in Weight 93 lb 2 oz BMI 17.6 BP 100/66 Blood Pressure Location Lt brachial Position Sitting Pulse 84 Pulse Source Pulse Oximeter Pulse Oximetry (%) 100 Oxygen Delivery Method Room Air Intake Visit Reasons: ear irrigation Allergies cephalexin [From KEFLEX] Allergy (Unknown, Verified 11/16/22 08:33) pt cannot remember reaction codeine [CODEINE] Allergy (Unknown, Verified 11/16/22 08:33) MOOD CHANGE, dizziness indigotindisulfonic acid [Indigo [place]] Allergy (Unknown, Verified 11/16/22 08:33) increased blood pressure blue dye [BLUE DYE] Adverse Reaction (Intermediate, Verified 11/16/22 08:33) ELEVATED BLOOD PRESSURE lisinopril [LISINOPRIL] Adverse Reaction (Unknown, Verified 11/16/22 08:33) cough, dry cough simvastatin [From ZOCOR] Adverse Reaction (Unknown, Verified 11/16/22 08:33) pt can't remember reaction Medication List - Last Reconciled 11/16/22 by Regina Cole MD aspirin (Adult Low Dose Aspirin) 81 mg PO DAILY calcium carbonate 1 tab PO BID cholecalciferol (vitamin D3) 25 mcg PO DAILY loratadine (Allergy Relief (loratadine)) 10 mg PO DAILY PRN mesalamine 3 caps PO BID metoprolol succinate ER 25 mg PO DAILY 90 days Tobacco use date assessed: 11/16/22 Fall risk assessment: 1 Fall in past year Last assessed Fall Risk: 11/16/22 Dental Screening Dental Screen Date: 11/16/22 Did you have a dental visit in the last 12 months?: No Did you have a dental problem in the last 6 months where you did not have access to dental care?: No Was dental information given to patient?: No HPI ear irrigation HPI Details Patient is 82-year-old female came in today for ear irrigation today, followed by removal with curette and spoon Her left ear is clean right ear is filled with cerumen. Patient is also complaining of difficulty swallowing which has been happening for a while it is associated with sore throat. 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 Johnson she said that she will book the appointment for a follow-up. There is no fever no chills but she said that she is having difficulty swallowing tablet sometimes. FOR[facility]LY [facility] Medical History Cholecystectomy planned Diarrhea History of breast cancer History of breast cancer Surgical History History of colonoscopy History of esophagogastroduodenoscopy (EGD) History of excision of mass History of hip surgery History of hysterectomy History of lumpectomy of right breast History of mammogram Family History Father CHF (congestive heart failure) Mother Diabetes mellitus Brother No problems noted. Sister No problems noted. Daughter No problems noted. Son No problems noted. Son No problems noted. Social History Household Members: None Housing: House Are you a primary career development consultant to a significant other at home: No Do you presently have visiting nurse or other home services: No Alcohol intake: never Patient Tobacco Use Status: Never used Tobacco e-Cigarette/Vaping Use: Never Used service: No Current occupational status: retired Cognitive needs: No Hearing needs: No Vision needs: Yes Questionnaire Thrive Questionnaire Date Thrive assessed: 11/13/20 AUDIT C Alcohol Use Questionnaire (AUDIT-C) 1. How often do you have a drink containing alcohol?: Never 3. How often do you have six or more drinks on one occasion?: Never Total Score: 0 Score Reviewed/Action Taken: Yes Review of Systems Const Denies chills and Denies fever(s) ENT Denies epistaxis and Denies nasal discharge Card Denies chest pain Resp Denies hemoptysis GI Denies diarrhea and Denies nausea Skin/Breast Denies rash Neuro Reports no additional complaints Psych Reports no additional complaints Endo Reports no additional complaints Physical exam (Primary Care) Vital Signs: Last Vital Signs Pulse 84 11/16/22 08:32 BP 100/66 11/16/22 08:32 Pulse Ox 100 11/16/22 08:32 Oxygen Delivery Method Room Air 11/16/22 08:32 BMI result Body Mass Index 17.6 Tobacco/Smoking Status: Tobacco use Status Tobacco use date assessed 11/16/22 11/16/22 08:34 Patient Tobacco Use Status Never used Tobacco 11/16/22 08:34 e-Cigarette/Vaping Use Never Used 11/16/22 08:34 Thrive Assessment: Date of Thrive Assessment Date Thrive assessed 11/13/20 11/16/22 08:34 Const General: cooperative, comfortable and no acute distress Orientation/consciousness: patient oriented x3 HENMT Other: No throat erythema, no exudate, uvula midline, right ear filled with cerumen, left ear clean Head: Yes normocephalic Eyes General: appearance normal, both eyes and all related structures Neck Neck: Yes supple Resp Effort & Inspection: normal respiratory effort, no cough and no stridor Cardio Rhythm: regular rhythm Heart sounds: S1 normal heart sound present and S2 normal heart sound present Skin General skin exam: turgor normal Neuro General: patient oriented x3, tone normal and moves all extremities Extrem Right lower extremity: no edema Left lower extremity: no edema Office Procedures Cerumen Removal From which ear canal was the cerumen removed: right Removal: irrigation and cerumen loop/spoon Notes: patient tolerated procedure well, no complications and ear canal clear [id number] Wax Removal by Spoon/Curette Assessment and Plan Assessment & Plan (1) Impacted cerumen, right ear: Code(s): H61.21 - Impacted cerumen, right ear (2) Difficulty swallowing pills: Code(s): R19.8 - Other specified symptoms and signs involving the digestive system and abdomen (3) Sore throat: Code(s): J02.9 - Acute pharyngitis, unspecified Plan Patient is 82-year-old female came in today for ear irrigation today, followed by removal with curette and spoon Her left ear is clean right ear is filled with cerumen. Patient is also complaining of difficulty swallowing which has been happening for a while it is associated with sore throat. 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 Johnson she said that she will book the appointment for a follow-up. There is no fever no chills but she said that she is having difficulty swallowing tablet sometimes. Medications: New famotidine 20 mg PO BEDTIME 30 tabs 0RF Coding Level of Care Code Est Pt Level 3 (28245) Diagnoses Impacted cerumen, right ear H61.21 Difficulty swallowing pills R19.8 Sore throat J02.9 CPT Codes Office Procedure - CPT: 07723-Lpz Wax Removal by Spoon/Curette ([id number])
== END 2022-11-16 11:00 | disposition home or self-care (01) ==
PROVIDERS: PCP Internal Medicine; Visit Provider Internal Medicine
DX: H61.21 Impacted cerumen, right ear (principal); R19.8 Other specified symptoms and signs involving the digestive system and abdomen; J02.9 Acute pharyngitis, unspecified
CPT/HCPCS: 69210; 99213

== ENCOUNTER 2022-11-21 10:32 | Emergency (ER) | payer MEDICARE, SELFPAY ==
--- NOTE | ~2022-11-21 | XR_ITS ---
EXAMINATION: XR CHEST CLINICAL INFORMATION: Weakness COMPARISON: Chest 09/11/2020, 03/02/2020, 08/14/2017 TECHNIQUE: AP upright and lateral views of the chest FINDINGS: The patient is slightly rotated on the PA view The lungs are well expanded. Less prominent streaky density in the right midlung most suggestive of scarring and/or atelectasis. No focal consolidation, interstitial pulmonary edema or pneumothorax. No pleural effusion. Calcified density at the right lung base most likely represents a calcified granuloma. Heart size is normal. Central thickening is noted, as before. There is elevation of the right humeral head with respect to the glenoid consistent with chronic rotator cuff disease. Surgical clips are seen in the right upper quadrant. XR/XR chest 2V IMPRESSION: 1. No acute abnormality. 2. Probable calcified granuloma at the right lung base.
--- NOTE | ~2022-11-21 | CT_ITS ---
EXAMINATION: CT SOFT TISSUE NECK WITH CONTRAST CLINICAL INFORMATION: Sore throat. COMPARISON: Soft tissue neck CT scan 01/25/2016. TECHNIQUE: Following the intravenous administration of 60 mL of Omnipaque 350 intravenous contrast, helical imaging was performed in the axial plane with generation of coronal and sagittal reformatted images. This CT examination was performed using dose optimization techniques as appropriate, variously including the following: *Automated exposure control *Adjustment of mA and/or kV according to patient size (this includes techniques or standardized protocols for targeted exams where dose is matched to indication/reason for exam; i.e. extremities or head) *Use of iterative reconstruction technique DLP: 245 mGy-cm FINDINGS: There is some layering aerosolized fluid within the hypopharynx. No discrete enhancing soft tissue mass. No pathologically enlarged cervical lymph nodes. Pharyngeal mucosal spaces are grossly symmetric. Parapharyngeal and retromaxillary fat is preserved. [employer] spaces are symmetric. Parotid glands are relatively atrophic. Submandibular glands are unremarkable. The tongue base and epiglottis are normal. Preepiglottic fat is preserved. Glottic and subglottic airways are patent. The thyroid gland is normal and the remainder of the visualized visceral soft tissues are normal. Although only partially included within the nnlla-to-yfji of this examination there is a an air-filled subpleural cystic cavity involving the superior segment of the right upper lobe with some adjoining nodularity along the parietal pleura best visualized on axial image 136 of 136 series 2. Lung apices are otherwise clear. Heavily calcified atheromatous plaque involves both carotid bifurcations. There is no acute osseous finding. Specifically no worrisome lytic or blastic osseous lesion. There is advanced multilevel degenerative spondylosis of the cervical spine with at least moderate canal stenosis at C5-C6. Limited visualization of the intracranial anatomy reveals no abnormal finding. Specifically no midline shift or hydrocephalus. CT/CT soft tissue neck w IV con IMPRESSION: There is some layering aerosolized fluid within the hypopharynx. Otherwise no discrete anatomic finding to provide a definitive explanation for this patient's clinical symptoms of sore throat. Although only partially included within the wdtep-he-qirw of this examination there is a subpleural cystic cavity involving the superior segment of the right upper lobe with some adjoining nodularity along the parietal pleura. A dedicated chest CT scan can be obtained for better anatomic characterization of this finding. No discrete enhancing soft tissue mass or pathologically enlarged cervical lymph nodes. There is advanced multilevel degenerative spondylosis of the cervical spine with at least moderate canal stenosis at the level of C5-C6. If there are clinical symptoms of compressive myelopathy then a dedicated cervical spine MRI can be obtained for better anatomic characterization of the cord and canal.
[2022-11-21 10:46] VITALS: BP 123/58; PULSE 79; RESP 16; TEMP 36.9; O2SAT 97; BMI 18.5
--- NOTE | 2022-11-21 10:52 | ECG_ITS ---
Test Reason : WEAKNESS Blood Pressure : / mmHG Vent. Rate : 078 BPM Atrial Rate : 078 BPM P-R Int : 196 ms QRS Dur : 092 ms QT Int : 394 ms P-R-T Axes : -10 081 020 degrees QTc Int : 449 ms Normal sinus rhythm Nonspecific ST and T wave abnormality Abnormal ECG When compared with ECG of 03-JAN-2020 06:59, Nonspecific T wave abnormality now evident in Inferior leads Referred By: Isak Erickson Electronically Signed By:JUNITO ARIZA
--- NOTE | 2022-11-21 10:59 | ED.GENADULT ---
HPI - General Adult General Chief complaint: General Medical Stated complaint: GENERAL WEAKNESS W/POOR PO INTAKE X1 WEEK PER EMS Time Seen by Provider: 11/21/22 10:51 Source: patient and EMS Mode of arrival: EMS Limitations: no limitations History of Present Illness HPI narrative: 82-year-old female very frail history of hypertension chronic anemia getting Procrit injections recent hip fracture approximately 2 years ago presents to the emergency department after feeling she had a sore throat and was unable to eat anything. She states she lives alone she states she has been unable to get out of bed she is feeling more and more weak she denies falls denies injuries she denies headache chest pain or shortness of breath denies nausea vomiting or diarrhea Related Data Home Medications Medication Instructions Recorded Confirmed mesalamine 400 mg capsule (with 3 cap PO BID 09/11/20 11/16/22 delayed release tablets inside) aspirin 81 mg tablet,delayed 81 mg PO DAILY 01/20/21 11/16/22 release (Adult Low Dose Aspirin) Previous Rx's Medication Instructions Recorded loratadine 10 mg tablet (Allergy 10 mg PO DAILY PRN allergy 09/10/21 Relief (loratadine)) symptoms #20 tabs cholecalciferol (vitamin D3) 25 25 mcg PO DAILY #90 caps 02/08/22 mcg (1,000 unit) capsule calcium carbonate 500 mg calcium 1 tab PO BID #90 tabs 03/29/22 (1,250 mg) tablet metoprolol succinate 25 mg 25 mg PO DAILY 90 days #90 tabs 06/28/22 tablet,extended release 24 hr famotidine 20 mg tablet 20 mg PO BEDTIME #30 tabs 11/16/22 cyclobenzaprine 10 mg tablet 10 mg PO TID PRN Breakthrough Pain 11/18/22 #60 tabs Allergies Allergy/AdvReac Type Severity Reaction Status Date / Time cephalexin [From KEFLEX] Allergy Unknown pt cannot Verified 11/16/22 08:33 remember reaction codeine [CODEINE] Allergy Unknown MOOD Verified 11/16/22 08:33 CHANGE, dizziness indigotindisulfonic acid Allergy Unknown increased Verified 11/16/22 08:33 [Indigo [place]] blood pressure blue dye [BLUE DYE] AdvReac Intermediate ELEVATED Verified 11/16/22 08:33 BLOOD PRESSURE lisinopril [LISINOPRIL] AdvReac Unknown cough, dry Verified 11/16/22 08:33 cough simvastatin [From ZOCOR] AdvReac Unknown pt can't Verified 11/16/22 08:33 remember reaction Review of Systems Review of Systems: Review of systems: General: Patient denies any fever chills recent illness or falls Musculoskeletal: Denies back pain or body aches or other injuries HEENT: Sore throat denies headache, runny nose, ear pain Respiratory: denies shortness of breath, cough Cardiovascular: no chest pain or palpitations : denies dysuria, frequency Abdomen: Decreased oral intake no nausea vomiting denies abdominal pain Extremities: no swelling, no pain Skin: no diaphoresis Yes all other systems are reviewed and are negative PMFSH Past Medical History Medical History Cholecystectomy planned Diarrhea History of breast cancer History of breast cancer Surgical History History of colonoscopy History of esophagogastroduodenoscopy (EGD) History of excision of mass History of hip surgery History of hysterectomy History of lumpectomy of right breast History of mammogram Family History Family History Father CHF (congestive heart failure) Mother Diabetes mellitus Brother No problems noted. Sister No problems noted. Daughter No problems noted. Son No problems noted. Son No problems noted. Social History Social History Household Members: None Housing: House Are you a primary home health caregiver to a significant other at home: No Do you presently have visiting nurse or other home services: No Alcohol intake: never Patient Tobacco Use Status: Never used Tobacco e-Cigarette/Vaping Use: Never Used Advance Directives: Yes Advance Directives on File: Yes Advance Directives Date on File: 12/16/19 service: No Current occupational status: retired Cognitive needs: No Hearing needs: No Vision needs: Yes Physical Exam ED Vital Signs: Vital Signs - 24 hr 11/21/22 10:46 11/21/22 12:33 11/21/22 14:00 Temperature 98.5 F 98.1 F Pulse Rate 79 69 68 Respiratory Rate 16 12 16 Blood Pressure 123/58 L 104/54 L 126/52 L Pulse Oximetry 97 96 100 Oxygen Delivery Method Room Air Room Air Room Air BMI result Body Mass Index 18.5 Neurological exam: CN II- XII tested. Patient is alert and oriented to person place and time. Patient has no dysphagia or dysarthia, denies good vision in all four vision oscar no nystagmus on exam, good strength to upper and lower extremities with normal reflexes to brachioradialis, wrist, patella and achilles.? Negative romberg, good finger to nose and heel to [place].?? General: Well-appearing well-nourished in no signs of distress HEENT: Normocephalic atraumatic? Neck: No signs of JVD, no masses no tenderness or lymphadenopathy Cardiovascular: Regular rate and rhythm Respiratory: Clear to auscultation bilaterally Abdomen: Soft nontender no masses Extremities: Normal pedal pulses no signs of edema Skin: Dry warm no rashes Back: No tenderness full ROM Medications Administered Discontinued Medications Generic Name Dose Route Start Last Admin Trade Name Freq PRN Reason Stop Dose Admin Sodium Chloride 1,000 mls @ 999 mls/hr 11/21/22 11:00 11/21/22 11:38 Ns IV 11/21/22 12:00 999 mls/hr .Q1H1M [id number] Administration Iohexol 100 ml 11/21/22 14:13 11/21/22 14:14 Iohexol 350 Mg/Ml 100 Ml Infus..Btl IV 11/21/22 14:14 60 ml ONCE ONE Administration Medical Decision Making Medical Decision Making [facility] Narrative: 82-year-old female with sore throat and failure to thrive not eating signs of dehydration will give patient fluids and check labs patient is found to be spitting into a bag after her arrival here this may be pulling into her dehydration as well as her weakness but patient might also have deep space infections so had a CT of the neck. Differential Diagnosis Differential Diagnoses: The differential diagnosis associated with the presentation includes DC patient section neck or strep I will check labs and reassess. Admission/Observation Consideration of admission/observation: Escalation of care including admission/observation considered Patient does not meet inpatient to his completely normal vitals normal lab work Lab Data [facility] Lab Attestation statement: I reviewed the patient's lab results. 11/21/22 11:32 11/21/22 11:32 Labs: Lab Results 11/21/22 11/21/22 Range/Units 11:32 15:08 WBC 7.6 (4.8-10.8) X10*3/uL RBC 4.47 (4.20-5.50) X10*6/uL Hgb 10.8 L (12.0-16.0) g/dl Hct 35.5 L (37.0-47.0) % MCV 79.4 L (80.0-98.0) fL MCH 24.2 L (27.0-33.0) pg MCHC 30.4 L (31.0-35.0) g/dl RDW 18.0 H (11.0-16.0) % Plt Count 201 (160-400) X10*3/uL MPV 9.6 (9.4-12.3) fL Immature Gran % (Auto) 0.5 H (0.0-0.4) % Neut % (Auto) 90.0 H (45-73) % Lymph % (Auto) 4.3 L (20-40) % [place] % (Auto) 4.8 (2-11) % Eos % (Auto) 0.0 (0-4) % Baso % (Auto) 0.4 (0-2) % Lymph # (Auto) 0.3 L (1.2-4.9) X10*3/uL [place] # (Auto) 0.4 (0.1-1.2) X10*3/uL Eos # (Auto) 0.0 (0.0-0.4) X10*3/uL Baso # (Auto) 0.0 (0.0-0.2) X10*3/uL Abs Immat Gran (auto) 0.04 H (0.00-0.03) X10*3/uL Absolute Neuts (auto) 6.9 (2.0-8.3) x10*3/uL Absolute Nucleated RBC 0.000 (0.0-0.012) X10*3/uL Nucleated RBC % (auto) 0.0 (0.0-0.2) /100WBC Sodium 132 L (135-145) mmol/L Potassium 3.2 L (3.3-5.1) mmol/L Chloride 104 (96-108) mmol/L Carbon Dioxide 20 L (22-29) mmol/L Anion Gap 11 L (12-20) BUN 16 (9-16) mg/dL Creatinine 0.95 (0.5-1.4) mg/dL Estim Creat Clear Calc 31.5 Estimated GFR 56 Random Glucose 122 H (60-115) mg/dL Lactic Acid 0.8 (0.5-2.0) mmol/L Calcium 9.2 (8.4-10.2) mg/dL Total Bilirubin 0.4 (0.0-1.0) mg/dL Direct Bilirubin 0.2 (0.0-0.5) mg/dL AST 7 (5-31) U/L ALT < 5 (0-31) U/L Alkaline Phosphatase 78 (39-117) U/L Troponin I High Sens < 2.7 (<3.5-17.0) ng/L Total Protein 7.4 (6.5-8.0) g/dL Albumin 3.6 (3.5-5.0) g/dL Lipase 8 (8-78) U/L Urine Color Yellow Urine Appearance Cloudy Urine pH 6.5 (5.0-9.0) Ur Specific [place] 1.020 (1.005-1.025) Urine Protein 30 (1+) H (Neg-Trace) mg/dL Urine Glucose (UA) Negative (Negative) mg/dL Urine Ketones Negative (Negative) mg/dL Urine Blood Small (1+) H (Negative) Urine Nitrite Positive H (Negative) Ur Leukocyte Esterase Large (3+) H (Negative) COVID-19 (BART) Negative (Negative) COVID-19 Clin Com See Note Influenza Type A (CYNDIE) Negative (Negative) Influenza Type B (CYNDIE) Negative (Negative) Influenza A & B Note See Note S. pyogenes GrpA CYNDIE Negative (Negative) Discharge Plan Discharge Clinical Impression: Urinary tract infection, Difficulty in swallowing Patient Disposition: Home, Self-Care Instructions: Dysphagia (ED), Urinary Tract Infection in Older Adults (ED) Additional Instructions: You were seen today for difficulty swallowing and found to have a UTI. You underwent CT XR and labs which were all normal Please call to follow up with your doctor. If you have any other concerns please return to the ED. Prescriptions: No Action cholecalciferol (vitamin D3) 25 mcg (1,000 unit) capsule 25 mcg PO DAILY Qty: 90 3RF cyclobenzaprine 10 mg Tablet 10 mg PO TID PRN (Reason: Breakthrough Pain) Qty: 60 2RF mesalamine 400 mg capsule (with del rel tablets) 3 cap PO BID calcium carbonate 500 mg calcium (1,250 mg) tablet 1 tab PO BID Qty: 90 2RF metoprolol succinate 25 mg tablet extended release 24 hr 25 mg PO DAILY 90 Days Qty: 90 3RF famotidine 20 mg tablet 20 mg PO BEDTIME Qty: 30 0RF loratadine [Allergy Relief (loratadine)] 10 mg tablet 10 mg PO DAILY PRN (Reason: allergy symptoms) Qty: 20 0RF aspirin [Adult Low Dose Aspirin] 81 mg tablet,delayed release (DR/EC) 81 mg PO DAILY
[2022-11-21] MEDS: 0.9 % Sodium Chloride 1,000 ML 999 ML IV (11:38)
[2022-11-21 11:39] LABS: Hematocrit 35.5 % (37.0-47.0); Hemoglobin 10.8 g/dl (12.0-16.0); Mean Corpuscular HGB Conc 30.4 g/dl (31.0-35.0); PLT CLUMP 1; SCAN SMEAR FLAG 1
[2022-11-21 11:41] LABS: Basophils Percent Auto 0.4 % (0-2); Imm Gran Abs Auto 0.04 X10*3/uL (0.00-0.03); Imm Gran Pct Auto 0.5 % (0.0-0.4); Lymphocytes Absolute Auto 0.3 X10*3/uL (1.2-4.9); Lymphocytes Percent Auto 4.3 % (20-40); Mean Corpuscular Hemoglobin 24.2 pg (27.0-33.0); Mean Corpuscular Volume 79.4 fL (80.0-98.0); Mean Platelet Volume 9.6 fL (9.4-12.3); Monocytes Absolute Auto 0.4 X10*3/uL (0.1-1.2); Monocytes Percent Auto 4.8 % (2-11); Neutrophils Absolute Auto 6.9 x10*3/uL (2.0-8.3); Red Blood Count 4.47 X10*6/uL (4.20-5.50)
[2022-11-21 11:43] LABS: MANUAL DIFF FLAG NO; Platelet Count 201 X10*3/uL (160-400); White Blood Count 7.6 X10*3/uL (4.8-10.8)
[2022-11-21 11:49] LABS: Lactic Acid 0.8 mmol/L (0.5-2.0)
[2022-11-21 11:56] LABS: Alanine Aminotransferase < 5 U/L (0-31); Albumin Level 3.6 g/dL (3.5-5.0); Alkaline Phosphatase 78 U/L (39-117); Anion Gap 11 (12-20); Aspartate Amino Transferase 7 U/L (5-31); Bilirubin Direct 0.2 mg/dL (0.0-0.5); Bilirubin Total 0.4 mg/dL (0.0-1.0); Blood Urea Nitrogen 16 mg/dL (9-16); Calcium 9.2 mg/dL (8.4-10.2); Carbon Dioxide 20 mmol/L (22-29); Chloride 104 mmol/L (96-108); Creatinine Clr Calc Pharmacy 31.5; Estimated Glomerular Filt Rate 56; Glucose Random 122 mg/dL (60-115); Lipase 8 U/L (8-78); Potassium 3.2 mmol/L (3.3-5.1); Sodium 132 mmol/L (135-145); Total Protein 7.4 g/dL (6.5-8.0)
[2022-11-21 12:03] LABS: Troponin-I High Sensitivity < 2.7 ng/L (<3.5-17.0)
--- NOTE | 2022-11-21 12:09 | PC.NURSE ---
alert and oriented, respirations even and unlabored. difficulty swallowing, spitting secretions into tissues. iv established, labs/swabs sent. iv fluids infusing at this time.
[2022-11-21 12:18] LABS: COVID-19 Test Negative (Negative); IDNOW Serial# 08D9AD1C; IDNOW Serial# BCCEAD1C; Strep A Nucleic Acid Negative (Negative)
[2022-11-21 12:19] LABS: IDNOW Serial# 9DB6401D; Influenza A Negative (Negative); Influenza B2 Negative (Negative)
[2022-11-21 12:33] VITALS: BP 104/54; PULSE 69; RESP 12; O2SAT 96
[2022-11-21 14:00] VITALS: BP 126/52; PULSE 68; RESP 16; TEMP 36.7; O2SAT 100
--- NOTE | 2022-11-21 14:07 | PC.NURSE ---
20gIV placed in the left wrist w/o complications. pt verbalizing no pain guero. respirations even and unlabored. vss and up to date. CT bedside transporting pt.
[2022-11-21] MEDS: iohexoL 350 MG/ML 100 ML INFUS..BTL IV (14:14)
--- NOTE | 2022-11-21 15:27 | MHC.CM.ED ---
Addendum entered by Rosa Maria Bajwa 11/21/22 15:59: [facility] is unable to accept patient because they are at capacity. [facility] is able to accept patient. Original Note: Received case management consult from Dr Erickson. Patient came to the ER due to weakness. Work up essentially negative. Physical therapy eval completed. Home services is recommended. Met with patient and daughter, Karie Castorena, in regards to discharge planning. Patient lives alone, ambulates with a cane and had no services prior to coming to the hospital. PCP verified. Copy of HCP verified to be on file. Patient has received 2 Pfizer vaccines. Patient has been active with [facility] in the past and is requesting referral there. Referral made via [facility]. Karie Castorena will transport patient home when medically stable. Dr Erickson aware. Continue to monitor for d/c needs.
[2022-11-21 15:32] LABS: Appearance Urine Cloudy; Color Urine Yellow; Glucose Urine UA Negative (Negative); Leukocyte Esterase Urine Large (3+) (Negative); Nitrite Urine Positive (Negative); PH 6.5 (5.0-9.0); UMIC TRIGGER UACC YES; Urine Blood Small (1+) (Negative); Urine Ketones Negative (Negative); Urine Protein 30 (1+) mg/dL (Neg-Trace)
--- NOTE | 2022-11-21 15:53 | ED.GENADULT ---
HPI - General Adult General Chief complaint: General Medical Stated complaint: GENERAL WEAKNESS W/POOR PO INTAKE X1 WEEK PER EMS Time Seen by Provider: 11/21/22 10:51 Source: patient and EMS Mode of arrival: EMS Limitations: no limitations Related Data Home Medications Medication Instructions Recorded Confirmed mesalamine 400 mg capsule (with 3 cap PO BID 09/11/20 11/16/22 delayed release tablets inside) aspirin 81 mg tablet,delayed 81 mg PO DAILY 01/20/21 11/16/22 release (Adult Low Dose Aspirin) Previous Rx's Medication Instructions Recorded loratadine 10 mg tablet (Allergy 10 mg PO DAILY PRN allergy 09/10/21 Relief (loratadine)) symptoms #20 tabs cholecalciferol (vitamin D3) 25 25 mcg PO DAILY #90 caps 02/08/22 mcg (1,000 unit) capsule calcium carbonate 500 mg calcium 1 tab PO BID #90 tabs 03/29/22 (1,250 mg) tablet metoprolol succinate 25 mg 25 mg PO DAILY 90 days #90 tabs 06/28/22 tablet,extended release 24 hr famotidine 20 mg tablet 20 mg PO BEDTIME #30 tabs 11/16/22 cyclobenzaprine 10 mg tablet 10 mg PO TID PRN Breakthrough Pain 11/18/22 #60 tabs Allergies Allergy/AdvReac Type Severity Reaction Status Date / Time cephalexin [From KEFLEX] Allergy Unknown pt cannot Verified 11/16/22 08:33 remember reaction codeine [CODEINE] Allergy Unknown MOOD Verified 11/16/22 08:33 CHANGE, dizziness indigotindisulfonic acid Allergy Unknown increased Verified 11/16/22 08:33 [[place]] blood pressure blue dye [BLUE DYE] AdvReac Intermediate ELEVATED Verified 11/16/22 08:33 BLOOD PRESSURE lisinopril [LISINOPRIL] AdvReac Unknown cough, dry Verified 11/16/22 08:33 cough simvastatin [From ZOCOR] AdvReac Unknown pt can't Verified 11/16/22 08:33 remember reaction PMFSH Past Medical History Medical History Cholecystectomy planned Diarrhea History of breast cancer History of breast cancer Surgical History History of colonoscopy History of esophagogastroduodenoscopy (EGD) History of excision of mass History of hip surgery History of hysterectomy History of lumpectomy of right breast History of mammogram Family History Family History Father CHF (congestive heart failure) Mother Diabetes mellitus Brother No problems noted. Sister No problems noted. Daughter No problems noted. Son No problems noted. Son No problems noted. Social History Social History Household Members: None Housing: House Are you a primary home health care case manager to a significant other at home: No Do you presently have visiting nurse or other home services: No Alcohol intake: never Patient Tobacco Use Status: Never used Tobacco e-Cigarette/Vaping Use: Never Used Advance Directives: Yes Advance Directives on File: Yes Advance Directives Date on File: 12/16/19 service: No Current occupational status: retired Cognitive needs: No Hearing needs: No Vision needs: Yes Physical Exam ED Vital Signs: Vital Signs - 24 hr 11/21/22 10:46 11/21/22 12:33 11/21/22 14:00 Temperature 98.5 F 98.1 F Pulse Rate 79 69 68 Respiratory Rate 16 12 16 Blood Pressure 123/58 L 104/54 L 126/52 L Pulse Oximetry 97 96 100 Oxygen Delivery Method Room Air Room Air Room Air BMI result Body Mass Index 18.5 Course Course Course Narrative: Patient did well with physical therapy had normal labs and CT. Patient will go home with VNA services case management did set up for the patient. Medications Administered Discontinued Medications Generic Name Dose Route Start Last Admin Trade Name Freq PRN Reason Stop Dose Admin Sodium Chloride 1,000 mls @ 999 mls/hr 11/21/22 11:00 11/21/22 11:38 Ns IV 11/21/22 12:00 999 mls/hr .Q1H1M [id number] Administration Iohexol 100 ml 11/21/22 14:13 11/21/22 14:14 Iohexol 350 Mg/Ml 100 Ml Infus..Btl IV 11/21/22 14:14 60 ml ONCE ONE Administration Medical Decision Making Lab Data 11/21/22 11:32 11/21/22 11:32 Labs: Lab Results 11/21/22 11/21/22 Range/Units 11:32 15:08 WBC 7.6 (4.8-10.8) X10*3/uL RBC 4.47 (4.20-5.50) X10*6/uL Hgb 10.8 L (12.0-16.0) g/dl Hct 35.5 L (37.0-47.0) % MCV 79.4 L (80.0-98.0) fL MCH 24.2 L (27.0-33.0) pg MCHC 30.4 L (31.0-35.0) g/dl RDW 18.0 H (11.0-16.0) % Plt Count 201 (160-400) X10*3/uL MPV 9.6 (9.4-12.3) fL Immature Gran % (Auto) 0.5 H (0.0-0.4) % Neut % (Auto) 90.0 H (45-73) % Lymph % (Auto) 4.3 L (20-40) % [place] % (Auto) 4.8 (2-11) % Eos % (Auto) 0.0 (0-4) % Baso % (Auto) 0.4 (0-2) % Lymph # (Auto) 0.3 L (1.2-4.9) X10*3/uL [place] # (Auto) 0.4 (0.1-1.2) X10*3/uL Eos # (Auto) 0.0 (0.0-0.4) X10*3/uL Baso # (Auto) 0.0 (0.0-0.2) X10*3/uL Abs Immat Gran (auto) 0.04 H (0.00-0.03) X10*3/uL Absolute Neuts (auto) 6.9 (2.0-8.3) x10*3/uL Absolute Nucleated RBC 0.000 (0.0-0.012) X10*3/uL Nucleated RBC % (auto) 0.0 (0.0-0.2) /100WBC Sodium 132 L (135-145) mmol/L Potassium 3.2 L (3.3-5.1) mmol/L Chloride 104 (96-108) mmol/L Carbon Dioxide 20 L (22-29) mmol/L Anion Gap 11 L (12-20) BUN 16 (9-16) mg/dL Creatinine 0.95 (0.5-1.4) mg/dL Estim Creat Clear Calc 31.5 Estimated GFR 56 Random Glucose 122 H (60-115) mg/dL Lactic Acid 0.8 (0.5-2.0) mmol/L Calcium 9.2 (8.4-10.2) mg/dL Total Bilirubin 0.4 (0.0-1.0) mg/dL Direct Bilirubin 0.2 (0.0-0.5) mg/dL AST 7 (5-31) U/L ALT < 5 (0-31) U/L Alkaline Phosphatase 78 (39-117) U/L Troponin I High Sens < 2.7 (<3.5-17.0) ng/L Total Protein 7.4 (6.5-8.0) g/dL Albumin 3.6 (3.5-5.0) g/dL Lipase 8 (8-78) U/L Urine Color Yellow Urine Appearance Cloudy Urine pH 6.5 (5.0-9.0) Ur Specific [place] 1.020 (1.005-1.025) Urine Protein 30 (1+) H (Neg-Trace) mg/dL Urine Glucose (UA) Negative (Negative) mg/dL Urine Ketones Negative (Negative) mg/dL Urine Blood Small (1+) H (Negative) Urine Nitrite Positive H (Negative) Ur Leukocyte Esterase Large (3+) H (Negative) COVID-19 (BART) Negative (Negative) COVID-19 Clin Com See Note Influenza Type A (CYNDIE) Negative (Negative) Influenza Type B (CYNDIE) Negative (Negative) Influenza A & B Note See Note S. pyogenes GrpA CYNDIE Negative (Negative) Discharge Plan Discharge Clinical Impression: Urinary tract infection, Difficulty in swallowing Patient Disposition: Home, Self-Care Instructions: Dysphagia (ED), Urinary Tract Infection in Older Adults (ED) Additional Instructions: You were seen today for difficulty swallowing and found to have a UTI. You underwent CT XR and labs which were all normal Please call to follow up with your doctor. If you have any other concerns please return to the ED. Prescriptions: No Action cholecalciferol (vitamin D3) 25 mcg (1,000 unit) capsule 25 mcg PO DAILY Qty: 90 3RF cyclobenzaprine 10 mg Tablet 10 mg PO TID PRN (Reason: Breakthrough Pain) Qty: 60 2RF mesalamine 400 mg capsule (with del rel tablets) 3 cap PO BID calcium carbonate 500 mg calcium (1,250 mg) tablet 1 tab PO BID Qty: 90 2RF metoprolol succinate 25 mg tablet extended release 24 hr 25 mg PO DAILY 90 Days Qty: 90 3RF famotidine 20 mg tablet 20 mg PO BEDTIME Qty: 30 0RF loratadine [Allergy Relief (loratadine)] 10 mg tablet 10 mg PO DAILY PRN (Reason: allergy symptoms) Qty: 20 0RF aspirin [Adult Low Dose Aspirin] 81 mg tablet,delayed release (DR/EC) 81 mg PO DAILY
[2022-11-21 15:59] LABS: Bacteria Urine 4+ (None Seen); Hyaline Casts Urine 0-2 /LPF (0-2); RBC Urine 0-2 /HPF (0-2); Squamous Epithelial Cell Urine 0-2 /HPF (0-2); UACC Culture Trigger YES; WBC Urine >50 /HPF (0-5)
--- NOTE | 2022-11-21 16:12 | PC.NURSE ---
provider did not pass nursing swallow evaluation - provider notified and aware.
[2022-11-21] MEDS: levoFLOXacin 500 MG TABLET PO (16:33)
--- NOTE | 2022-11-21 16:36 | PC.NURSE ---
medication crushed and administered in vanilla pudding.
== END 2022-11-21 16:58 | disposition home or self-care (01) ==
PROVIDERS: Emergency Provider Student in an Organized Health Care Education/Training Program; PCP Internal Medicine
DX: N39.0 Urinary tract infection, site not specified (principal); R13.10 Dysphagia, unspecified; R26.2 Difficulty in walking, not elsewhere classified; J02.9 Acute pharyngitis, unspecified; R94.31 Abnormal electrocardiogram [ECG] [EKG]; R53.1 Weakness; Z20.822 Contact with and (suspected) exposure to COVID-19; Z20.828 Contact with and (suspected) exposure to other viral communicable diseases; Z79.899 Other long term (current) drug therapy
CPT/HCPCS: 36415; 70491; 71046; 80048; 80076; 81001; 83605; 83690; 84484; 85025; 87040; 87086; 87088; 87186; 87502; 87635; 87651; 93005; 96360; 97162; 99285; Q9967

== ENCOUNTER 2022-12-08 08:01 | Outpatient (REF) | payer MEDICARE, SELFPAY ==
--- NOTE | ~2022-12-08 | FL_ITS ---
EXAMINATION: FL BARIUM SWALLOW CLINICAL INFORMATION: Dysphasia with solids and liquids. COMPARISON: None available. TECHNIQUE: Barium swallow examination is performed using fluoroscopic evaluation in addition to multiple fluoroscopic spot views. The patient is imaged both upright and prone and using both thick and thin sulfate along with effervescent granules. Fluoroscopy time: 4 minutes and 2 seconds DAP: 1024 Gycm2 Images: 4 fluoroscopic image hold cine runs were obtained. 14 fluoroscopic spot images were obtained. FINDINGS: Exam was significantly limited due to patient inability to tolerate positioning required for a full and complete examination. Predominant abnormality is profound cricopharyngeal achalasia, with subsequent ballooning of the hypopharynx during swallow, and mild tracheal penetration on thick barium to the level of the false cords. Eventually this extended to the true cords, and no further barium was administered. Grossly the hypopharyngeal structures otherwise appear normal. No masses appreciated. Mild nasopharyngeal reflux was noted. Extensive pooling in the piriform sinuses was evident throughout the observed examination which partially cleared upon dry swallows. The esophagus was difficult to evaluate due to the patient's inherent condition, although grossly only disordered peristalsis was noted without definite mass or stricture. Grossly the mucosa appears normal. Grossly no gastroesophageal reflux noted although could not properly test due to study limitations. Limited images of the stomach demonstrated normal mucosal fold pattern and normal contour. No definite mass, ulcer, or fold thickening. The duodenal bulb has a normal appearance. The duodenal sweep has a normal appearance with normal fold pattern. No definite hiatus hernia although the patient could not adequately position for proper evaluation for the presence. Grossly none seen. Cholecystectomy clips are noted. Mitral annular calcifications are noted. The aorta is extensively calcified. There is a moderate dextroconvex thoracolumbar scoliosis. FL/FL barium swallow IMPRESSION: 1. 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 2. Disordered contractions of the esophagus without additional definite esophageal abnormality although evaluation was limited. 3. No definite hiatus hernia is seen. 4. Grossly normal appearance of the stomach, duodenal bulb, and duodenal sweep. 5. Ancillary findings as detailed in the body of the report.
== END 2022-12-08 08:02 | disposition home or self-care (01) ==
LOC: HO.XRAY 08:01
PROVIDERS: PCP Internal Medicine; Visit Provider Internal Medicine
DX: R13.14 Dysphagia, pharyngoesophageal phase (principal)
CPT/HCPCS: 74220

== ENCOUNTER → 2022-12-08 08:04 | Outpatient (BNV) | payer MEDICARE, SELFPAY | PROVIDERS: PCP Internal Medicine; Visit Provider Radiology Diagnostic Radiology | DX: K22.0 Achalasia of cardia (principal) | CPT/HCPCS: 74221 ==

== ENCOUNTER 2022-12-27 15:01 | Outpatient (AMB) | payer MEDICARE, SELFPAY ==
--- NOTE | 2022-12-27 15:06 | A.OFFPC_ITS ---
Vital Signs 12/27/22 15:07 Weight 92 lb 2 oz BP 126/58 L Blood Pressure Location Lt brachial Position Sitting Pulse 58 Pulse Source Pulse Oximeter Pulse Oximetry (%) 100 Oxygen Delivery Method Room Air Intake Visit Reasons: 6 Month follow up Allergies cephalexin [From KEFLEX] Allergy (Unknown, Verified 11/16/22 08:33) pt cannot remember reaction codeine [CODEINE] Allergy (Unknown, Verified 11/16/22 08:33) MOOD CHANGE, dizziness indigotindisulfonic acid [[place]igo [place]] Allergy (Unknown, Verified 11/16/22 08:33) increased blood pressure blue dye [BLUE DYE] Adverse Reaction (Intermediate, Verified 11/16/22 08:33) ELEVATED BLOOD PRESSURE lisinopril [LISINOPRIL] Adverse Reaction (Unknown, Verified 11/16/22 08:33) cough, dry cough simvastatin [From ZOCOR] Adverse Reaction (Unknown, Verified 11/16/22 08:33) pt can't remember reaction Medication List - Last Reconciled 12/27/22 by Regina Cole MD aspirin (Adult Low Dose Aspirin) 81 mg PO DAILY calcium carbonate 1 tab PO BID cholecalciferol (vitamin D3) 25 mcg PO DAILY ciprofloxacin HCl 500 mg PO BID cyclobenzaprine 10 mg PO TID PRN famotidine 20 mg PO BEDTIME loratadine (Allergy Relief (loratadine)) 10 mg PO DAILY PRN mesalamine 3 caps PO BID metoprolol succinate ER 25 mg PO DAILY 90 days Tobacco use date assessed: 11/16/22 HPI 6 Month follow up HPI Details Barium swallow test done 08 of December this year showed Profound cricopharyngeal achalasia She has appointment coming up with gastroenterology Dr. Johnson Meanwhile she is to continue with omeprazole and famotidine. She is also taking loratadine regularly for allergies She is complaining of feeling crackling in her ears on examination ears look within normal limit. Explained to patient that most likely it is because of her allergies. [facility] Medical History History of breast cancer History of breast cancer Cholecystectomy planned Diarrhea Surgical History History of hip surgery History of mammogram History of excision of mass History of esophagogastroduodenoscopy (EGD) History of colonoscopy History of lumpectomy of right breast History of hysterectomy Family History Father CHF (congestive heart failure) Mother Diabetes mellitus Brother No problems noted. Sister No problems noted. Daughter No problems noted. Son No problems noted. Son No problems noted. Social History Household Members: None Housing: House Are you a primary managed care analyst to a significant other at home: No Do you presently have visiting nurse or other home services: No Alcohol intake: never Patient Tobacco Use Status: Never used Tobacco e-Cigarette/Vaping Use: Never Used Advance Directives Date on File: 12/16/19 service: No Current occupational status: retired Cognitive needs: No Hearing needs: No Vision needs: Yes Questionnaire Thrive Questionnaire Date Thrive assessed: 11/13/20 Review of Systems Const Denies chills and Denies fever(s) ENT Denies epistaxis and Denies nasal discharge Card Denies chest pain Resp Denies chest congestion, Denies cough and Denies hemoptysis GI Denies diarrhea and Denies nausea Skin/Breast Denies rash Neuro Reports no additional complaints Psych Reports no additional complaints Endo Reports no additional complaints Physical exam (Primary Care) Vital Signs: Last Vital Signs Pulse 58 12/27/22 15:07 BP 126/58 L 12/27/22 15:07 Pulse Ox 100 12/27/22 15:07 Oxygen Delivery Method Room Air 12/27/22 15:07 Tobacco/Smoking Status: Tobacco use Status Tobacco use date assessed 11/16/22 12/27/22 15:07 Patient Tobacco Use Status Never used Tobacco 12/27/22 15:07 e-Cigarette/Vaping Use Never Used 12/27/22 15:07 Thrive Assessment: Date of Thrive Assessment Date Thrive assessed 11/13/20 12/27/22 15:07 Const General: cooperative, comfortable and no acute distress Orientation/consciousness: patient oriented x3 HENMT Other: Both ears within normal limit Head: Yes normocephalic Eyes General: appearance normal, both eyes and all related structures Neck Neck: Yes supple Resp Effort & Inspection: normal respiratory effort, no cough and no stridor Cardio Rhythm: regular rhythm Heart sounds: S1 normal heart sound present and S2 normal heart sound present Skin General skin exam: turgor normal Neuro General: patient oriented x3, tone normal and moves all extremities Extrem Right lower extremity: no edema Left lower extremity: no edema Assessment and Plan Assessment & Plan (1) Achalasia of the cricopharyngeus muscle: Code(s): K22.0 - Achalasia of cardia (2) Crackling sound in right ear: Code(s): H93.8X1 - Other specified disorders of right ear Plan Barium swallow test done 08 of December this year showed Profound cricopharyngeal achalasia She has appointment coming up with gastroenterology Dr. Johnson Meanwhile she is to continue with omeprazole and famotidine. She is also taking loratadine regularly for allergies She is complaining of feeling crackling in her ears on examination ears look within normal limit. Explained to patient that most likely it is because of her allergies. Coding Level of Care Code Est Pt Level 3 (00248) Diagnoses Achalasia of the cricopharyngeus muscle K22.0 Crackling sound in right ear H93.8X1
[2022-12-27 15:07] VITALS: BP 126/58; PULSE 58; O2SAT 100
== END 2022-12-27 15:26 | disposition home or self-care (01) ==
PROVIDERS: Visit Provider Internal Medicine
DX: K22.0 Achalasia of cardia (principal); H93.8X1 Other specified disorders of right ear
CPT/HCPCS: 99213

== ENCOUNTER 2023-01-16 | Outpatient (REF) | payer MEDICARE, SELFPAY ==
--- NOTE | ~2023-01-16 | CT_ITS ---
EXAMINATION: CT CHEST WITH CONTRAST CLINICAL INFORMATION: Chest mass visualized on neck CT COMPARISON: Multiple prior chest radiographs including 11/21/2022 and 01/31/2020. CT neck of 11/21/2022 TECHNIQUE: Multidetector volumetric CT imaging of the chest was obtained after the administration of 50 mL of Omnipaque 350 intravenous contrast without immediate adverse reactions. Axial MIP volume rendering provided. Sagittal and coronal reformatted images were obtained. This CT examination was performed using dose optimization techniques as appropriate, variously including the following: *Automated exposure control *Adjustment of mA and/or kV according to patient size (this includes techniques or standardized protocols for targeted exams where dose is matched to indication/reason for exam; i.e. extremities or head) *Use of iterative reconstruction technique DLP: 142 mGy-cm FINDINGS: LUNGS AND PLEURA: In the right posterior mid to upper hemithorax, there is a pleural-based, air-containing ovoid structure measuring 3.8 x 2 cm. This structure was air-filled on chest x-ray of 11/21/2022, but more prominent and opacified on chest x-ray of 01/31/2020. Scarring and traction bronchiectasis extending from the right hilum to this cystic lesion. There is minimal nodular thickening of the posterior wall of this cavitary structure. Adjacent bandlike atelectasis or scar is evident in the posterior right lower lobe. Subpleural coarse opacities in the anterior right upper lobe are compatible with prior radiotherapy for breast carcinoma. No suspicious pulmonary parenchymal mass is detected in either lung. The trachea and major bronchi are patent. MEDIASTINUM: There is no adenopathy. Dense calcifications are evident in the left main, anterior descending and circumflex coronary arteries, and there are dense mitral valve calcifications as well. PLEURA: There is no pleural effusion. The pleura is thickened adjacent to the right upper hemithorax lesion described above. AXILLA: No lymphadenopathy. UPPER ABDOMEN: There are postsurgical changes in the darwin hepatis. The gallbladder surgically absent. Pneumobilia is evident, likely postsurgical. The spleen is considerably enlarged measuring at least 15.4 cm AP. Markedly inhomogeneous enhancement of the spleen is present. Although some of this might reflect altered perfusion, as there are extensive calcifications in the splenic artery, there are cysts small peripheral low density splenic lesions that do not definitely reflect perfusion abnormalities. Splenic infarcts are suspected, and primary splenic masses are also to be considered. There is a 5 cm right renal upper pole cyst for which no additional follow-up imaging is needed. OSSEOUS STRUCTURES: There is a 50% T12 compression fracture, which was at least partially visualized on chest x-ray of 01/31/2020. CT/CT chest w IV con IMPRESSION: 1. Pleural-based, and perhaps intrapleural, air containing lesion in the right posterior upper hemithorax. It is uncertain whether this reflects a subpleural parenchymal cavitary lesion or a pleural cavitary lesion. In either event, the lesion is unchanged in size since chest x-ray of 2019 and less opacified than on that radiograph, findings which indicate a benign postinflammatory process. 2. Bronchiectasis extending from the right hilum to this lesion, in conjunction with previously seen opacification of the lesion suggests potential bronchopleural fistula or direct connection with the tracheobronchial tree if this reflects a primary pulmonary parenchymal lesion. Follow-up imaging should be obtained based on symptoms. 3. Dense Coronary artery and mitral valve calcifications. 4. Postsurgical changes in the epigastrium with intrahepatic pneumobilia suggesting patent and 0 hepatic anastomosis. Correlation with clinical history is recommended. 4. Splenomegaly, with markedly inhomogeneous splenic enhancement. Some of the heterogeneous attenuation may reflect altered perfusion, perhaps due to atherosclerotic narrowing of the splenic artery, but splenic infarcts are suspected, and primary splenic lesions are not excluded. Dedicated abdominal CT including delayed imaging might be of benefit. Fleischner guidelines were followed.
[2023-01-16] MEDS: iohexoL 350 MG/ML 100 ML INFUS..BTL IV (11:49)
== END 2023-01-16 00:01 | disposition home or self-care (01) ==
LOC: HO.CT
PROVIDERS: PCP Internal Medicine; Visit Provider Internal Medicine Medical Oncology
DX: R91.8 Other nonspecific abnormal finding of lung field (principal)
CPT/HCPCS: 71260; Q9967

== ENCOUNTER 2023-01-27 08:10 | Day surgery (SDC) | payer MEDICARE, SELFPAY ==
[2023-01-25 15:13] VITALS: BMI 17.4
--- NOTE | 2023-01-26 10:52 | HO.ANESPROP2 ---
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 PMFSH Active Problems Active Problems: All Active Problems (Updated 12/27/22 @ 15:47 by Regina Cole MD) Crackling sound in right ear (Acute) Achalasia of the cricopharyngeus muscle (Acute) Sore throat (Acute) Difficulty swallowing pills (Acute) Pain in right ear (Acute) Impacted cerumen, right ear (Acute) Lumbar back pain (Acute) Chronic anemia (Acute) Chronic colitis (Acute) History of breast cancer (Acute) Excessive thirst (Acute) Osteoporosis (Acute) Upper respiratory tract infection (Acute) Hospital discharge follow-up (Acute) Risk for falls (Acute) Trochanteric fracture of left femur (Acute) Right otitis media (Acute) History of breast cancer (Acute) Dry skin (Acute) Atelectasis of right lung (Acute) Anemia in chronic kidney disease (CKD) (Acute) Breast cancer (Acute) Hypocalcemia (Acute) Sepsis (Acute) Colitis (Acute) UTI (urinary tract infection) (Acute) GERD (gastroesophageal reflux disease) (Acute) Dehydration (Acute) Hyperlipidemia (Acute) HTN (hypertension) (Acute) Hypovolemia (Acute) Metabolic acidosis (Acute) Community acquired pneumonia (Acute) Past Medical History Medical History History of breast cancer History of breast cancer Cholecystectomy planned Diarrhea Family History Family History Father CHF (congestive heart failure) Mother Diabetes mellitus Brother No problems noted. Sister No problems noted. Daughter No problems noted. Son No problems noted. Son No problems noted. Surgical History Surgical History History of hip surgery History of mammogram History of excision of mass History of esophagogastroduodenoscopy (EGD) History of colonoscopy History of lumpectomy of right breast History of hysterectomy Social History Social History Household Members: None Housing: House Are you a primary healthcare receptionist to a significant other at home: No Do you presently have visiting nurse or other home services: No Alcohol intake: never Patient Tobacco Use Status: Never used Tobacco e-Cigarette/Vaping Use: Never Used Advance Directives Date on File: 12/16/19 service: No Current occupational status: retired Cognitive needs: No Hearing needs: No Vision needs: Yes Meds Allergies Allergy/AdvReac Type Severity Reaction Status Date / Time codeine [CODEINE] Allergy Intermediate MOOD Verified 01/25/23 15:15 CHANGE, dizziness indigotindisulfonic acid Allergy Intermediate increased Verified 01/25/23 15:15 [Indigo [place]] blood pressure cephalexin [From KEFLEX] Allergy Unknown pt cannot Verified 11/16/22 08:33 remember reaction blue dye [BLUE DYE] AdvReac Intermediate ELEVATED Verified 11/16/22 08:33 BLOOD PRESSURE lisinopril [LISINOPRIL] AdvReac Intermediate cough, dry Verified 01/25/23 15:15 cough simvastatin [From ZOCOR] AdvReac Unknown pt can't Verified 11/16/22 08:33 remember reaction Home Medications Medication Instructions Recorded Confirmed Last Taken Type mesalamine 400 mg capsule (with 3 cap PO BID 09/11/20 01/25/23 Unknown History delayed release tablets inside) aspirin 81 mg tablet,delayed 81 mg PO DAILY 01/20/21 01/25/23 Unknown History release (Adult Low Dose Aspirin) Exam Height,Weight and Vital Signs: Height 5 ft 1 in Weight 41.73 kg Pertinent Lab Results Pertinent Lab Results: Laboratory Tests 12/23/22 01/20/23 13:52 14:11 WBC 5.1 Hgb 10.8 L Hct 37.0 Plt Count 213 Sodium 138 Potassium 4.2 D Chloride 106 Carbon Dioxide 22 BUN 27 H Creatinine 1.02 Narrative Narrative: EKG 11/2022 Vent. Rate : 078 BPM Atrial Rate : 078 BPM P-R Int : 196 ms QRS Dur : 092 ms QT Int : 394 ms P-R-T Axes : -10 081 020 degrees QTc Int : 449 ms Normal sinus rhythm Nonspecific ST and T wave abnormality Abnormal ECG When compared with ECG of 03-JAN-2020 06:59, Nonspecific T wave abnormality now evident in Inferior leads Assessment and Plan Assessment Anesthesia Assessment: Chart Reviewed
[2023-01-27 08:38] VITALS: BP 165/64; PULSE 64; RESP 18; TEMP 36.7; O2SAT 100
[2023-01-27] MEDS: Lactated Ringers 1,000 ML 100 ML IVCONT (08:39)
--- NOTE | 2023-01-27 08:42 | HO.ANESPROP2 ---
[facility] Active Problems Active Problems: All Active Problems (Updated 12/27/22 @ 15:47 by Regina Cole MD) Crackling sound in right ear (Acute) Achalasia of the cricopharyngeus muscle (Acute) Sore throat (Acute) Difficulty swallowing pills (Acute) Pain in right ear (Acute) Impacted cerumen, right ear (Acute) Lumbar back pain (Acute) Chronic anemia (Acute) Chronic colitis (Acute) History of breast cancer (Acute) Excessive thirst (Acute) Osteoporosis (Acute) Upper respiratory tract infection (Acute) Hospital discharge follow-up (Acute) Risk for falls (Acute) Trochanteric fracture of left femur (Acute) Right otitis media (Acute) History of breast cancer (Acute) Dry skin (Acute) Atelectasis of right lung (Acute) Anemia in chronic kidney disease (CKD) (Acute) Breast cancer (Acute) Hypocalcemia (Acute) Sepsis (Acute) Colitis (Acute) UTI (urinary tract infection) (Acute) GERD (gastroesophageal reflux disease) (Acute) Dehydration (Acute) Hyperlipidemia (Acute) HTN (hypertension) (Acute) Hypovolemia (Acute) Metabolic acidosis (Acute) Community acquired pneumonia (Acute) Past Medical History Medical History History of breast cancer History of breast cancer Cholecystectomy planned Diarrhea Functional capacity: independent ambulation Family History Family History Father CHF (congestive heart failure) Mother Diabetes mellitus Brother No problems noted. Sister No problems noted. Daughter No problems noted. Son No problems noted. Son No problems noted. Family history of problems with anesthesia: No Surgical History Surgical History History of hip surgery History of mammogram History of excision of mass History of esophagogastroduodenoscopy (EGD) History of colonoscopy History of lumpectomy of right breast History of hysterectomy History of Problems with Anesthesia: No Social History Social History Household Members: None Housing: House Are you a primary patient centered care specialist to a significant other at home: No Do you presently have visiting nurse or other home services: No Alcohol intake: never Patient Tobacco Use Status: Never used Tobacco e-Cigarette/Vaping Use: Never Used Advance Directives: No Advance Directives Information Provided: Yes Advance Directives Date on File: 12/16/19 service: No Current occupational status: retired Cognitive needs: No Hearing needs: No Vision needs: Yes Meds Allergies Allergy/AdvReac Type Severity Reaction Status Date / Time codeine [CODEINE] Allergy Intermediate MOOD Verified 01/27/23 08:17 CHANGE, dizziness indigotindisulfonic acid Allergy Intermediate increased Verified 01/27/23 08:17 [Indigo [place]] blood pressure cephalexin [From KEFLEX] Allergy Unknown pt cannot Verified 01/27/23 08:17 remember reaction blue dye [BLUE DYE] AdvReac Intermediate ELEVATED Verified 01/27/23 08:17 BLOOD PRESSURE lisinopril [LISINOPRIL] AdvReac Intermediate cough, dry Verified 01/27/23 08:17 cough simvastatin [From ZOCOR] AdvReac Unknown pt can't Verified 01/27/23 08:17 remember reaction Active Medications: Current Medications Lactated Ringer's (Lr) 1,000 mls @ 100 mls/hr IVCONT .Q10H АЛЕКСАНДР Last Admin: 01/27/23 08:39 Dose: 100 mls/hr Home Medications Medication Instructions Recorded Confirmed Last Taken Type mesalamine 400 mg capsule (with 3 cap PO BID 09/11/20 01/25/23 Unknown History delayed release tablets inside) aspirin 81 mg tablet,delayed 81 mg PO DAILY 01/20/21 01/25/23 Unknown History release (Adult Low Dose Aspirin) Exam Height,Weight and Vital Signs: Height 5 ft 1 in Weight 41.73 kg Last Vital Signs Temp 98.1 F 01/27/23 08:38 Pulse 64 01/27/23 08:38 Resp 18 01/27/23 08:38 BP 165/64 H 01/27/23 08:38 Pulse Ox 100 01/27/23 08:38 O2 Del Method Room Air 01/27/23 08:38 Airway Mallampati Class: II TM Dist: >3cm Neck ROM: Full Heart: RRR Lungs: CTA Assessment and Plan Assessment Anesthesia Assessment: Anesthesia Plan Discussed Final Anesthetic Review Family History of Problems with Anesthesia: No History of Problems with Anesthesia: No ASA Class: II Final Preanesthetic Review: Meds/Allgs Chart Reviewed, Consent Obtained/Reviewed and Anes Risks/Benef Reviewed Patient Risk: Low Procedure Risk: Low Anesthetic Plan Anesthetic Plan: MAC: Disposition: Standard PACU
[2023-01-27 09:42] VITALS: BP 148/54; PULSE 68; RESP 16; TEMP 36.6; O2SAT 100
--- NOTE | 2023-01-27 09:44 | P.BOP_ITS ---
Brief Operative Note Date of Service: 01/27/23 Pre-op diagnosis: Dysphagia Post-op diagnosis: other (Cricopharyngeal achalasia, small hiatal hernia) Procedure: EGD with balloon dilation of the upper esophageal sphincter with an 8 to 10mm balloon, and then an 11 to 12 mm balloon. Surgeon: John Amaya MD Anesthesia: MAC Was an Cinder Pit Worker used for this Procedure?: No Estimated blood loss (mL): 2.0 Pathology: none sent Condition: stable Disposition: PACU
[2023-01-27 09:47] VITALS: BP 131/60; PULSE 69; RESP 16; O2SAT 100
[2023-01-27 09:52] VITALS: BP 128/60; PULSE 78; RESP 16; O2SAT 100
[2023-01-27 09:57] VITALS: BP 143/71; PULSE 71; RESP 16; O2SAT 100
[2023-01-27 10:12] VITALS: BP 157/77; PULSE 72; RESP 16; TEMP 36.3; O2SAT 100
--- NOTE | 2023-01-27 10:13 | HO.POSTANES ---
Post Anesthesia Evaluation Post Anesthesia Evaluation Date of Service: 01/27/23 Vital Signs: Vital Signs Temp Pulse Resp BP Pulse Ox O2 Del Method 01/27/23 09:47 69 16 131/60 100 Room Air 01/27/23 09:42 97.8 F 68 16 148/54 H 100 Room Air 01/27/23 08:38 98.1 F 64 18 165/64 H 100 Room Air Anesthesia: General Mental Status: Awake Pain Control: Satisfactory Nausea/Vomiting: None Hydration: Adequate Anesthesia-Related Issues: No Anes. Related Issues
--- NOTE | 2023-01-27 10:15 | OP_ITS ---
DATE OF SERVICE: 01/27/2023 SURGEON: John Amaya MD INDICATIONS: The patient presents for evaluation of dysphagia and an abnormal barium swallow describing cricopharyngeal achalasia. Full consent was obtained from her for this, including risks of bleeding and perforation. PREOPERATIVE DIAGNOSIS: POSTOPERATIVE DIAGNOSIS: PROCEDURE PERFORMED: Esophagogastroduodenoscopy with balloon dilation of upper esophageal sphincter. ESTIMATED BLOOD LOSS: COMPLICATIONS: ANESTHESIA: Monitored anesthesia care. ASSISTANTS: SPECIMENS: PREOPERATIVE DIAGNOSES: Cricopharyngeal achalasia and dysphagia. POSTOPERATIVE DIAGNOSES: Cricopharyngeal achalasia and dysphagia, tight upper esophageal sphincter, small hiatal hernia. DESCRIPTION OF PROCEDURE: The patient was placed in the left lateral decubitus position. The Olympus video gastroscope was passed in the posterior oropharynx. Under direct vision, I was able to visualize the opening for the upper esophageal sphincter which definitely appeared narrowed and even with some evidence of scarring. It was difficult to pass the gastroscope and I did feel a pop as it entered the esophagus. The scope was advanced to the distal esophagus, which appeared normal. The gastroesophageal junction appeared normal at 38 cm. There was no esophagitis nor Dillon's esophagus. There was no evidence of any distal esophageal stricture nor ring. The scope entered the stomach. There was a small hiatal hernia. The scope was advanced to the pylorus, and the duodenum was cannulated to the descending portion. The duodenum including the bulb appeared normal without mass or ulceration. The scope was withdrawn back in the stomach. The gastric antrum and body appeared normal with good peristalsis. The scope was retroflexed visualizing the proximal stomach carefully, which appeared normal, without any sign of mass or ulceration. The scope was straightened. The scope was withdrawn back into the esophagus. The esophageal mucosa appeared normal. The upper esophageal sphincter definitely appeared to be stenotic. I used a [employer] pyloric dilating balloon to dilate the upper esophageal sphincter from 8 mm to 10 mm at the recommended pressure for between 30 and 60 seconds each. Post-dilation it was somewhat easier to pass the scope. I then used another pyloric dilating balloon to dilate the upper esophageal sphincter from 11 mm to 12 mm at the recommended pressure for between 30 and 60 seconds each. Post-dilation it was definitely easier to intubate the upper esophageal sphincter, and with insufflation of air it definitely appeared more patent. There was definitely some evidence of mucosal trauma from the dilation, but there was no sign of any tear nor active bleeding. At that point, the procedure was terminated. The scope was withdrawn from the patient. She tolerated the procedure well and was returned to the recovery area in stable condition. IMPRESSION: 1. Cricopharyngeal achalasia, status post balloon dilation. 2. Small hiatal hernia. PLAN: I have instructed the patient to call me next week to let me know how her swallowing is. If there has been some improvement but she is still having problems, I would then recommend a repeat upper endoscopy with further balloon dilation in about 2 weeks. If things are much better then we could hold off that and just observe things. If things continue to prove refractory to this, then we could try dilation with a Savary dilator and consider ENT referral for surgery for the cricopharyngeal achalasia if things persist despite that. She was advised to stay on a soft diet. She was advised not to use any aspirin or NSAIDs for at least a week. She is currently taking famotidine 20 mg daily, but I instructed her to take 2 each evening. She is not having any reflux symptoms and I did not see any evidence of esophagitis, so I do not think putting her on a PPI would make a difference in this regard. This has been discussed with her daughter. MD CHASE Stewart/RAY / [id number] MTDD
== END 2023-01-27 10:37 | disposition home or self-care (01) ==
PROVIDERS: PCP Internal Medicine; Visit Provider Internal Medicine
PROC: (CPT 43249; principal; 2023-01-27 09:00)
DX: K22.2 Esophageal obstruction (principal); K44.9 Diaphragmatic hernia without obstruction or gangrene; R13.14 Dysphagia, pharyngoesophageal phase; R93.3 Abnormal findings on diagnostic imaging of other parts of digestive tract; K52.9 Noninfective gastroenteritis and colitis, unspecified; E11.9 Type 2 diabetes mellitus without complications; I10 Essential (primary) hypertension; E78.5 Hyperlipidemia, unspecified; D64.9 Anemia, unspecified; Z85.3 Personal history of malignant neoplasm of breast; Z79.82 Long term (current) use of aspirin; Z79.899 Other long term (current) drug therapy
CPT/HCPCS: 43249; C1726; J2704

== ENCOUNTER 2023-02-24 10:48 | Outpatient (AMB) | payer MEDICARE, SELFPAY ==
--- NOTE | 2023-02-24 11:11 | MHC.PC.OV ---
Vital Signs 02/24/23 11:12 Height 4 ft 10 in BMI Reason not done Patient refused/unable BP 142/72 H Blood Pressure Location Lt brachial Position Sitting Pulse 72 Pulse Source Pulse Oximeter Pulse Oximetry (%) 98 Oxygen Delivery Method Room Air Intake Visit Reasons: UTI symptoms Allergies codeine [CODEINE] Allergy (Intermediate, Verified 02/24/23 11:13) MOOD CHANGE, dizziness indigotindisulfonic acid [Indigo [place]] Allergy (Intermediate, Verified 02/24/23 11:13) increased blood pressure cephalexin [From KEFLEX] Allergy (Unknown, Verified 02/24/23 11:13) pt cannot remember reaction blue dye [BLUE DYE] Adverse Reaction (Intermediate, Verified 02/24/23 11:13) ELEVATED BLOOD PRESSURE lisinopril [LISINOPRIL] Adverse Reaction (Intermediate, Verified 02/24/23 11:13) cough, dry cough simvastatin [From ZOCOR] Adverse Reaction (Unknown, Verified 02/24/23 11:13) pt can't remember reaction Medication List - Last Reconciled 02/24/23 by Regina Cole MD aspirin (Adult Low Dose Aspirin) 81 mg PO DAILY calcium carbonate 1 tab PO BID calcium carbonate (Calcium) 600 mg PO BID cholecalciferol (vitamin D3) 25 mcg PO DAILY cyclobenzaprine 10 mg PO TID PRN famotidine 20 mg PO BEDTIME loratadine (Allergy Relief (loratadine)) 10 mg PO DAILY PRN mesalamine 3 caps PO BID metoprolol succinate ER 25 mg PO DAILY 90 days Tobacco use date assessed: 02/24/23 Last assessed Fall Risk: 02/24/23 Dental Screening Dental Screen Date: 02/24/23 Did you have a dental visit in the last 12 months?: No Did you have a dental problem in the last 6 months where you did not have access to dental care?: No Was dental information given to patient?: No HPI UTI symptoms HPI Details Patient is 82-year-old female came in today for a same-day visit to be evaluated for possible urine infection Patient is having back pain On examination she is pointing over right sacroiliac joint Explained to patient that kidney is located little bit above where she does not have any pain. She sat in the office for half an hour drinking water as she could not provide us with urine sample Patient have a chronic back pain. Finally we got the UA done which showed positive leuk esterase and 1+ blood I am treating her with Macrobid for 5 days b.i.d. We will send the urine culture as well. [facility] Medical History History of breast cancer History of breast cancer Cholecystectomy planned Diarrhea Surgical History History of hip surgery History of mammogram History of excision of mass History of esophagogastroduodenoscopy (EGD) History of colonoscopy History of lumpectomy of right breast History of hysterectomy Family History Father CHF (congestive heart failure) Mother Diabetes mellitus Brother No problems noted. Sister No problems noted. Daughter No problems noted. Son No problems noted. Son No problems noted. Social History Household Members: None Housing: House Are you a primary weekend caregiver to a significant other at home: No Do you presently have visiting nurse or other home services: No Alcohol intake: never Patient Tobacco Use Status: Never used Tobacco e-Cigarette/Vaping Use: Never Used Advance Directives Date on File: 12/16/19 service: No Current occupational status: retired Cognitive needs: No Hearing needs: No Vision needs: Yes Questionnaire Thrive Questionnaire Date Thrive assessed: 11/13/20 AUDIT C Alcohol Use Questionnaire (AUDIT-C) 1. How often do you have a drink containing alcohol?: Never 3. How often do you have six or more drinks on one occasion?: Never Total Score: 0 Score Reviewed/Action Taken: Yes Review of Systems Const All systems reviewed & are unremarkable except as noted in HPI and below Physical exam (Primary Care) Vital Signs: Last Vital Signs Pulse 72 02/24/23 11:12 BP 142/72 H 02/24/23 11:12 Pulse Ox 98 02/24/23 11:12 Oxygen Delivery Method Room Air 02/24/23 11:12 Tobacco/Smoking Status: Tobacco use Status Tobacco use date assessed 02/24/23 02/24/23 11:13 Patient Tobacco Use Status Never used Tobacco 02/24/23 11:13 e-Cigarette/Vaping Use Never Used 02/24/23 11:13 Thrive Assessment: Date of Thrive Assessment Date Thrive assessed 11/13/20 02/24/23 11:13 Const General: no acute distress Orientation/consciousness: patient oriented x3 Eyes General: appearance normal, both eyes and all related structures Resp Effort & Inspection: normal respiratory effort and able to speak in complete sentences Auscultation: clear to auscultation bilaterally GI Other: Mild discomfort suprapubic pressure Back/Spine/Pelvis Back/spine/pelvis image: 1. Site of discomfort Neuro General: patient oriented x3 Psych Mental Status: mental status grossly normal Results AMB Urinalysis, Automated UA Leukoctes 125 Henry/uL Last Edit by Akin Kaur CMA on 02/24/23 11:54 UA Nitrite Negative Last Edit by Akin Kaur CMA on 02/24/23 11:54 UA Urobilinogen 0.2 mg/dL Last Edit by Akin Kaur CMA on 02/24/23 11:54 UA Protein 0 mg/dL Last Edit by Akin Kaur CMA on 02/24/23 11:54 UA pH 6.0 Last Edit by Akin Kaur CMA on 02/24/23 11:54 UA Blood 10 Kwame/uL Last Edit by Akin Kaur CMA on 02/24/23 11:54 UA Specific [place] 1.015 Last Edit by Akin Kaur CMA on 02/24/23 11:54 UA Ketone Negative Last Edit by Akin Kaur CMA on 02/24/23 11:54 UA Bilirubin 0 mg/dL Last Edit by Akin Kaur CMA on 02/24/23 11:54 UA Glucose 0 mg/dL Last Edit by Akin Kaur CMA on 02/24/23 11:54 Results Reviewed Results Reviewed: Laboratory Last Values Urine pH (Auto) 6.0 02/24/23 11:53 Specific [place] (Auto) 1.015 02/24/23 11:53 Urine Protein (Auto) 0 mg/dL 02/24/23 11:53 Glucose (UA)(Auto) 0 mg/dL 02/24/23 11:53 Urine Ketones (Auto) Negative 02/24/23 11:53 Urine Blood (Auto) 10 Kwame/uL 02/24/23 11:53 Urine Nitrite (Auto) Negative 02/24/23 11:53 Urine Bilirubin (Auto) 0 mg/dL 02/24/23 11:53 Urine Urobilinogen (Auto) 0.2 mg/dL 02/24/23 11:53 Leukocyte Esterase (Auto) 125 Henry/uL 02/24/23 11:53 Assessment and Plan Assessment & Plan (1) Cystitis, acute: Code(s): N30.00 - Acute cystitis without hematuria Qualifiers: Hematuria presence: with hematuria Qualified Code(s): N30.01 - Acute cystitis with hematuria (2) Lumbar back pain: Code(s): M54.50 - Low back pain, unspecified Plan Patient is 82-year-old female came in today for a same-day visit to be evaluated for possible urine infection Patient is having back pain On examination she is pointing over right sacroiliac joint Explained to patient that kidney is located little bit above where she does not have any pain. She sat in the office for half an hour drinking water as she could not provide us with urine sample Patient have a chronic back pain. Finally we got the UA done which showed positive leuk esterase and 1+ blood I am treating her with Macrobid for 5 days b.i.d. We will send the urine culture as well. Orders: Orders UA CC w/rflx Micro + Cult Today M54.50 - Low back pain, unspecified AMB Urinalysis Automated Today Z13.9 - Encounter for screening, unspecified Urine Culture Today N30.00 - Acute cystitis without hematuria Medications: New nitrofurantoin monohyd/m-cryst 100 mg (Macrobid) must administer with a meal/food 100 mg PO Q12H 10 caps 0RF 5 days Coding Level of Care Code Est Pt Level 3 (47921) Diagnoses Acute cystitis with hematuria N30.01 Hematuria presence: with hematuria Lumbar back pain M54.50
[2023-02-24 11:12] VITALS: BP 142/72; PULSE 72; O2SAT 98
== END 2023-02-24 15:31 | disposition home or self-care (01) ==
LOC: HO.HMGC 10:48
PROVIDERS: PCP Internal Medicine; Visit Provider Internal Medicine
DX: N30.01 Acute cystitis with hematuria (principal); M54.50 Low back pain, unspecified
CPT/HCPCS: 81003; 99213

== ENCOUNTER 2023-02-24 11:57 | Outpatient (REF) | payer MEDICARE, SELFPAY ==
[2023-02-24 14:00] LABS: Appearance Urine Turbid; Color Urine Yellow; Glucose Urine UA Negative (Negative); Leukocyte Esterase Urine Large (3+) (Negative); Nitrite Urine Positive (Negative); PH 6.5 (5.0-9.0); UMIC TRIGGER UACC YES; Urine Blood Small (1+) (Negative); Urine Ketones Negative (Negative); Urine Protein 30 (1+) mg/dL (Neg-Trace)
[2023-02-24 14:21] LABS: Bacteria Urine 4+ (None Seen); Hyaline Casts Urine 0-2 /LPF (0-2); RBC Urine 0-2 /HPF (0-2); Squamous Epithelial Cell Urine 0-2 /HPF (0-2); UACC Culture Trigger YES; WBC Urine >50 /HPF (0-5)
== END 2023-02-24 11:58 | disposition home or self-care (01) ==
LOC: HO.LAB 11:57
PROVIDERS: Visit Provider Internal Medicine
DX: N30.00 Acute cystitis without hematuria (principal); M54.50 Low back pain, unspecified; D64.9 Anemia, unspecified
CPT/HCPCS: 81001; 81003; 87086; 87088; 87186

== ENCOUNTER 2023-03-08 12:52 | Outpatient (AMB) | payer MEDICARE, SELFPAY ==
[2023-03-08 12:55] VITALS: BP 138/66; PULSE 62; BMI 19.4
--- NOTE | 2023-03-08 12:55 | MHC.OFFVIS ---
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 Allergies codeine [CODEINE] Allergy (Intermediate, Verified 03/08/23 12:59) MOOD CHANGE, dizziness indigotindisulfonic acid [Indigo [place]] Allergy (Intermediate, Verified 03/08/23 12:59) increased blood pressure cephalexin [From KEFLEX] Allergy (Unknown, Verified 03/08/23 12:59) pt cannot remember reaction blue dye [BLUE DYE] Adverse Reaction (Intermediate, Verified 03/08/23 12:59) ELEVATED BLOOD PRESSURE lisinopril [LISINOPRIL] Adverse Reaction (Intermediate, Verified 03/08/23 12:59) cough, dry cough simvastatin [From ZOCOR] Adverse Reaction (Unknown, Verified 03/08/23 12:59) pt can't remember reaction Medication List - Last Reconciled 03/08/23 by Shine Nelson MD aspirin (Adult Low Dose Aspirin) 81 mg PO DAILY calcium carbonate 1 tab PO BID calcium carbonate (Calcium) 600 mg PO BID cholecalciferol (vitamin D3) 25 mcg PO DAILY cyclobenzaprine 10 mg PO TID PRN famotidine 20 mg PO BEDTIME loratadine (Allergy Relief (loratadine)) 10 mg PO DAILY PRN metoprolol succinate ER 25 mg PO DAILY 90 days HPI HPI Comments History of Present Illness Details This is a cardiology consultation regarding abnormal findings on the spleen seen on CT scan. She underwent a CT chest through the oncologist and that had reported question of splenic infarcts and hence we have been consulted. Patient herself does not have any known cardiac issues. No history of any coronary artery disease or myocardial infarction or cardiomyopathy or in fact any other cardiac concerns. Overall, no cardiac symptoms like chest pain or palpitations. She does look quite frail in appearance. [facility] Medical History History of breast cancer History of breast cancer Cholecystectomy planned Diarrhea Surgical History History of hip surgery History of mammogram History of excision of mass History of esophagogastroduodenoscopy (EGD) History of colonoscopy History of lumpectomy of right breast History of hysterectomy Family History Father CHF (congestive heart failure) Mother Diabetes mellitus Brother No problems noted. Sister No problems noted. Daughter No problems noted. Son No problems noted. Son No problems noted. Social History Household Members: None Housing: House Are you a primary body care manager to a significant other at home: No Do you presently have visiting nurse or other home services: No Alcohol intake: never Patient Tobacco Use Status: Never used Tobacco e-Cigarette/Vaping Use: Never Used Advance Directives Date on File: 12/16/19 service: No Current occupational status: retired Cognitive needs: No Hearing needs: No Vision needs: Yes Review of Systems Const Denies chills, Denies daytime sleepiness, Denies fatigue, Denies fever(s), Denies frequent falls, Denies night sweats, Denies snoring, Denies weakness, Denies weight gain and Denies weight loss Eyes Denies loss of vision ENT Denies dizziness and Denies hearing loss Card Denies chest pain, Denies chest pain with activity, Denies syncope, Denies rapid heart rate, Denies edema, Denies claudication, Denies leg edema, Denies lightheadedness, Denies palpitations, Denies dyspnea, Denies dyspnea on exertion and Denies orthopnea Resp Denies cough, Denies excessive phlegm production, Denies dyspnea, Denies dyspnea on exertion, Denies snoring and Denies wheezing GI Denies abdominal pain, Denies hematochezia, Denies change in bowel habits, Denies change in stool character, Denies heartburn, Denies nausea and Denies vomiting Denies hematuria, Denies urinary frequency and Denies dysuria Musc Denies arthralgias, Denies muscle weakness, Denies numbness and Denies tingling Skin/Breast Denies nail changes and Denies rash Neuro Denies Abnormal speech present, Denies dizziness, Denies syncope, Denies frequent falls, Denies loss of vision, Denies memory loss, Denies numbness, Denies tingling and Denies weakness Psych Denies depression and Denies memory loss Endo Denies fatigue and Denies palpitations Aller/Immun Denies wheezing Physical Exam Vital Signs: Last Vital Signs Pulse 62 03/08/23 12:55 BP 138/66 03/08/23 12:55 BMI result Body Mass Index 19.4 Const General: comfortable and no acute distress Orientation/consciousness: patient oriented x3 HEENT Other: Unremarkable Head: Yes normal to inspection Neck Neck: Yes normal visual inspection Chest Chest palpation & inspection: normal inspection of the chest Resp Auscultation: clear to auscultation bilaterally Cardio Palpation: normal PMI Heart sounds: S1 normal heart sound present, S2 normal heart sound present, no gallops, no murmurs and no rubs GI Palpation (GI): Soft to palpation Back/Spine/Pelvis Other: unremarkable Skin General skin exam: no rashes or lesions noted Neuro General: patient oriented x3 Speech: No Abnormal speech present Extrem General: Yes normal to inspection Psych Mental Status: mental status grossly normal Assessment & Plan Assessment & Plan (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 There is question of splenic infarction versus atherosclerotic narrowing of splenic artery. Dedicated abdominal CT to evaluate this has been recommended. EKG shows sinus rhythm at 78/Min; nonspecific ST-T changes; normal OR and corrected QT. With regard to evaluation for splenic infarct, we can evaluate for cardiac source of embolism. We will start with an echocardiogram for cardiac function assessment and with 30 day monitor to assess for atrial fibrillation. In the interim, she can also complete the dedicated abdomen CT to evaluate the spleen further. Follow-up in a few weeks time. Orders: Orders CA echo transthoracic complete Today D73.5 - Infarction of spleen ECG 30 day event monitor Today D73.5 - Infarction of spleen, I48.0 - Paroxysmal atrial fibrillation Medications: Changed From cyclobenzaprine 10 mg PO TID PRN 60 tabs 2RF Breakthrough Pain To cyclobenzaprine 10 mg PO TID PRN Coding Level of Care Code New Pt Level 4 (56082) Diagnoses Splenic infarction D73.5
== END 2023-03-08 13:22 | disposition home or self-care (01) ==
PROVIDERS: PCP Internal Medicine; Visit Provider Internal Medicine
DX: D73.5 Infarction of spleen (principal)
CPT/HCPCS: 99204

== ENCOUNTER → 2023-03-08 12:52 | Outpatient (BNVA) | payer MEDICARE, SELFPAY | PROVIDERS: PCP Internal Medicine; Visit Provider Internal Medicine | DX: D73.5 Infarction of spleen (principal) | CPT/HCPCS: 99202 ==

== ENCOUNTER 2023-03-09 10:45 | Outpatient (AMB) | payer MEDICARE, SELFPAY ==
--- NOTE | 2023-03-09 10:54 | A.OFFVIS_ITS ---
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 Allergies codeine [CODEINE] Allergy (Intermediate, Verified 03/09/23 10:54) MOOD CHANGE, dizziness indigotindisulfonic acid [Indigo [place]] Allergy (Intermediate, Verified 03/09/23 10:54) increased blood pressure cephalexin [From KEFLEX] Allergy (Unknown, Verified 03/09/23 10:54) pt cannot remember reaction blue dye [BLUE DYE] Adverse Reaction (Intermediate, Verified 03/09/23 10:54) ELEVATED BLOOD PRESSURE lisinopril [LISINOPRIL] Adverse Reaction (Intermediate, Verified 03/09/23 10:54) cough, dry cough simvastatin [From ZOCOR] Adverse Reaction (Unknown, Verified 03/09/23 10:54) pt can't remember reaction HPI HPI Comments History of Present Illness Details The patient is here for pulmonary evaluation. The patient is an 82 year woman with a known history knee me in addition to history of breast cancer more than 20 years ago. The patient overall has been doing well. She does have issues with chronic fatigue and a lot has do with hernia. In the meantime she did have a CT scan of the chest that was noted to be abnormal and she was referred to Pulmonary. She appears to have what appears to be a cavity in the right lower lobe area. Appears to be connected to an airway. The patient had been coughing sometime ago. The cough had to do light allergy clear with some esophageal dysmotility issue. She did undergo an endoscopy and after that was corrected. After that she has had a significant improvement from a cough standpoint. I suspect that she may have a microaspiration event and that up with a lower respiratory infection. At this point the area looks okay. She is pretty asymptomatic. The patient has been had on antibiotics for what appeared to be pyelonephritis or UTI. She recently completed the antibiotics. She has a CT scan scheduled for March. So hold off on any of further interventions until we further address the area in March. In the meantime if she develops any worsening respiratory symptoms she will call for an earlier assessment. [facility] Medical History (Updated 03/13/23 @ 21:47 by Gregorio Alston MD) Cavitary lesion of lung History of breast cancer History of breast cancer Cholecystectomy planned Diarrhea Surgical History History of hip surgery History of mammogram History of excision of mass History of esophagogastroduodenoscopy (EGD) History of colonoscopy History of lumpectomy of right breast History of hysterectomy Family History Father CHF (congestive heart failure) Mother Diabetes mellitus Brother No problems noted. Sister No problems noted. Daughter No problems noted. Son No problems noted. Son No problems noted. Social History Household Members: None Housing: House Are you a primary team primary care physician to a significant other at home: No Do you presently have visiting nurse or other home services: No Alcohol intake: never Patient Tobacco Use Status: Never used Tobacco e-Cigarette/Vaping Use: Never Used Use of substances other than those prescribed or required for medical reasons: No Have you been hit, kicked, punched, or otherwise hurt by someone within the past year? If so, by whom?: No Advance Directives: No Advance Directives Information Provided: No Advance Directives Date on File: 12/16/19 Do you have thoughts of harming others: None Do you have a plan to hurt others: No Plan Do you have the means to hurt others: No Recently lost weight without trying: No Eating poorly because of decreased appetite: No Patient : No service: No Current occupational status: retired Cognitive needs: No Hearing needs: No Vision needs: Yes Review of Systems Const Denies chills, Denies daytime sleepiness, Denies fatigue, Denies fever(s), Denies frequent falls, Denies night sweats, Denies snoring, Denies weakness, Denies weight gain and Denies weight loss Eyes Denies loss of vision ENT Denies dizziness and Denies hearing loss Card Denies chest pain Resp Denies cough, Denies excessive phlegm production, Denies snoring and Denies wheezing GI Denies abdominal pain, Denies hematochezia, Denies change in bowel habits, Denies change in stool character, Denies heartburn, Denies nausea and Denies vomiting Denies hematuria, Denies urinary frequency and Denies dysuria Musc Denies arthralgias, Denies muscle weakness, Denies numbness and Denies tingling Skin/Breast Denies nail changes and Denies rash Neuro Denies Abnormal speech present, Denies dizziness, Denies frequent falls, Denies loss of vision, Denies memory loss, Denies numbness, Denies tingling and Denies weakness Psych Denies depression and Denies memory loss Endo Denies fatigue Aller/Immun Denies wheezing Physical Exam Vital Signs: Last Vital Signs Pulse 65 03/09/23 10:56 BP 118/60 03/09/23 10:56 Pulse Ox 99 03/09/23 10:56 Oxygen Delivery Method Room Air 03/09/23 10:56 BMI result Body Mass Index 18.2 Const General: comfortable and no acute distress Orientation/consciousness: patient oriented x3 HEENT Other: Unremarkable Head: Yes normal to inspection Neck Neck: Yes normal visual inspection Chest Chest palpation & inspection: normal inspection of the chest Resp Effort & Inspection: normal respiratory effort Auscultation: diminished lung sounds Cardio Heart sounds: S1 normal heart sound present, S2 normal heart sound present and no murmurs GI Palpation (GI): Soft to palpation Back/Spine/Pelvis Other: unremarkable Skin General skin exam: no rashes or lesions noted Neuro General: patient oriented x3 Speech: No Abnormal speech present Extrem General: Yes normal to inspection Psych Mental Status: mental status grossly normal Assessment & Plan Assessment & Plan (1) History of breast cancer: Code(s): Z85.3 - Personal history of malignant neoplasm of breast (2) Atelectasis of right lung: Code(s): J98.11 - Atelectasis (3) Cavitary lesion of lung: Code(s): J98.4 - Other disorders of lung Plan The patient is asymptomatic. Serial imaging studies. Holding off on semi invasive diagnostic interventions at this time Repeat imaging in 1-2 months F/U after repeat imaging or if worsens Coding Level of Care Code New Pt Level 4 (14604) Diagnoses History of breast cancer Z85.3 Atelectasis of right lung J98.11 Cavitary lesion of lung J98.4 Time Spent (min) 38
[2023-03-09 10:56] VITALS: BP 118/60; PULSE 65; O2SAT 99; BMI 18.2
== END 2023-03-09 11:39 | disposition home or self-care (01) ==
PROVIDERS: PCP Internal Medicine; Referring Provider Internal Medicine Medical Oncology; Visit Provider Hospitalist
DX: Z85.3 Personal history of malignant neoplasm of breast (principal); J98.11 Atelectasis; J98.4 Other disorders of lung
CPT/HCPCS: 99204

== ENCOUNTER → 2023-03-09 10:45 | Outpatient (BNVA) | payer MEDICARE, SELFPAY | PROVIDERS: PCP Internal Medicine; Referring Provider Internal Medicine Medical Oncology; Visit Provider Hospitalist | DX: J98.11 Atelectasis (principal); J98.4 Other disorders of lung; Z85.3 Personal history of malignant neoplasm of breast | CPT/HCPCS: 99202 ==

== ENCOUNTER 2023-03-27 09:02 | Outpatient (REF) | payer MEDICARE, SELFPAY ==
--- NOTE | ~2023-03-27 | CT_ITS ---
EXAMINATION: CT chest. CLINICAL INFORMATION: Carcinoma of breast, follow-up cavitating lung lesion. COMPARISON: CT scan of chest on 01/16/2023 TECHNIQUE: A multidetector helical CT acquisition of the chest was obtained following the administration of 85 mL of Omnipaque 350. Multiplanar reformats were acquired and utilized for image interpretation. Coronal and sagittal images were reconstructed from axial image data. Dose reduction technique: One or more of the following individual dose optimization techniques were used including: Automated exposure control, mA and/or kV were adjusted according to patient size or iterative reconstruction. DLP: 428 mGy-cm FINDINGS: LUNGS: A subpleural thin-walled cystic air space is seen at posterior medial pleural border of right lower lobe superior segment, measuring 2.1 cm in AP diameter, 3.6 cm in width, 2.7 cm in vertical height (previously 2 x 3.8 cm). The lesion is contiguous with surrounding fibrotic scars with associated traction bronchiectasis extending to the right infrahilar region. Persistent curvilinear density is seen along the posterior pleural border of right lower lobe superior and posterior basal segments. A 2 mm micronodule is seen at anterior lateral right upper lobe apical segment, series 6 image #74, not visualized previously. -Nodule #1 (Series 6, image 269): 2.8 mm solid nodule, anterior medial right lower lobe anteromedial basal segment, previously 3 mm. PLEURA: No pleural effusion or pneumothorax is seen. PERICARDIUM: No pericardial effusion is seen. MEDIASTINUM AND PATRICE: No abnormally enlarged mediastinal or hilar lymph nodes are seen. TRACHEOBRONCHIAL TREE: Trachea and bilateral mainstem bronchi are patent. THORACIC AORTA: The thoracic aorta is normal in size and smoothly patent. CORONARY ARTERY CALCIFICATIONS: Moderate PULMONARY ARTERIES: The main pulmonary arteries show normal enhancement. CHEST WALL AND LOWER NECK: A lesion with thick calcified rim measuring 1.5 x 0.7 cm in size is seen in upper right breast. The subcutaneous and muscular chest wall are intact with no focal lesion. No abnormal mass lesion could be seen in the visualized lower neck. BONES: There is moderate superior T12 wedge compression collapse. No focal bone lesion diagnostic of metastatic disease could be seen in the thorax. VISUALIZED UPPER ABDOMEN: Bilateral adrenal glands are not enlarged. Fleischner guidelines were followed. EXAMINATION: CT abdomen. CLINICAL INFORMATION: Carcinoma of breast, follow-up cavitating lung lesion. COMPARISON: CT scan of abdomen and pelvis on 01/02/2020 TECHNIQUE: A multidetector helical CT acquisition of the abdomen and pelvis was obtained following the administration of 85 mL of Omnipaque 350. Multiplanar reformats were acquired and utilized for image interpretation. Dose reduction technique: One or more of the following individual dose optimization techniques were used including: Automated exposure control, mA and/or kV were adjusted according to patient size or iterative reconstruction. DLP: 428 mGy-cm FINDINGS: LUNG BASES: Bilateral lung bases are clear. LIVER: No focal lesion is seen in the liver. Intrahepatic pneumobilia is seen in the remaining left hepatic lobe segment 4. GALLBLADDER AND BILIARY TREE: Gallbladder appears is surgically absent. Multiple surgical clips are seen along the medial border of the remaining left hepatic lobe segment IVb. Segments 2 and 3 of left hepatic lobe are surgically absent. Moderate dilatation of intrahepatic bile ducts with air-fluid levels is seen. There is marked dilatation of the common bile duct measuring 1.3 cm in diameter SPLEEN: The spleen is mildly enlarged, measuring 14.9 cm in AP length (previously 14.1 cm), containing a circumscribed hypodense lesion at anterior lateral capsular border measuring 0.9 cm in diameter (previously 1.0 cm), mean attenuation of 42 Hounsfield units. PANCREAS: The pancreas appears unremarkable. ADRENAL GLANDS: Adrenal glands are normal in size without focal lesion bilaterally. KIDNEYS: Bilateral kidneys are normal in size with large simple cysts in superior right renal pole measuring 5.3 cm in diameter and posterior lateral mid right renal cortex measuring 3.9 cm in diameter. Much smaller scattered left renal cortical simple cysts up to 0.8 cm in size in anterior superior left renal cortex are seen, for which no follow up imaging is recommended. BOWELS: There is normal filling of only the small bowel loops with oral contrast down to distal pelvic ileum. Recurrent circumferential mural thickening of the ascending colon is again visualized. There is complete loss of haustrations in the transverse colon. The entire colon shows enhancing mucosa. RETROPERITONEUM: No abnormally enlarged retroperitoneal lymph nodes, mass or hematoma could be seen. BLOOD VESSELS: Abdominal aorta is normal in size, with extensive circumferential atherosclerotic calcifications and smoothly patent. ABDOMINAL WALL: Small umbilical hernia containing mesenteric fat is seen. PERITONEUM: There was no ascites. There were no abdominal peritoneal inflammatory changes seen. No free peritoneal air was seen. No abnormally enlarged mesenteric lymph nodes are found. BONES: There are moderate L1-L2 dextroscoliosis, marked L3-L4 levoscoliosis and multilevel advanced degenerative lumbar disc disease, sharp syndesmophytes. No fracture or dislocation. No focal bone lesion diagnostic of metastatic disease could be seen in the lumbar region. EXAMINATION: CT pelvis. TECHNIQUE: Multiple axial images were obtained from iliac crest to the inferior pubic rami following the administration of 85 mL of Omnipaque 350. Coronal and sagittal images were reconstructed from axial image data. Dose reduction technique: One or more of the following individual dose optimization techniques were used including: Automated exposure control, mA and/or kV were adjusted according to patient size or iterative reconstruction. FINDINGS: URINARY BLADDER: Urinary bladder fills normally with urine. BOWELS: There is no abnormal dilatation of the large and small bowel loops. Appendix cannot be identified. There is mild circumferential mural thickening of the descending and sigmoid colon as well as rectum with complete loss of haustrations and enhancing mucosa. GENITAL ORGANS: No adnexal mass lesion could be seen. The uterus is not visualized. LYMPH NODES: No abnormally enlarged iliac or inguinal lymph nodes are seen. PERITONEUM: No inflammatory changes, ascites or free peritoneal air are found in the pelvis. BONES: Left femoral fixation with interlocking hip compression screw and gamma nail is present. No focal bone lesion diagnostic of metastatic disease could be seen in the pelvis. CT/CT abdomen pelvis w IV con IMPRESSION: 1. Unchanged Subpleural cystic air space with surrounding fibrotic changes and traction bronchiectasis in right lower lobe superior segment. 2. Stable right lower lobe 3 mm solid nodule and 2 mm micronodule in the right upper lobe apical segment. 3. No abnormally enlarged mediastinal or hilar lymph nodes are seen. 4. Unchanged moderate T12 compression fracture. 5. Recurrent circumferential mural thickening of the ascending colon, transverse colon, descending colon, sigmoid colon and rectum with loss of haustrations and enhancing mucosa suspicious for inflammatory or infectious colitis. 6. Persistent Bilateral renal cortical cysts, much better visualized on the current contrast enhanced examination, for which no follow up imaging is recommended. 7. Unchanged status post lateral left hepatectomy with moderate dilatation of intrahepatic bile ducts and marked dilatation of common bile duct with air-fluid levels. 8. Nonspecific hypodense lesion in the spleen, unchanged. 9. Unchanged status post hysterectomy. 10. Interval Left femoral fixation with interlocking hip compression screw and gamma nail.
[2023-03-27] MEDS: Barium Sulfate Oral (Vanilla) 450 ML ORAL.SUSP PO (11:44)
[2023-03-27] MEDS: iohexoL 350 MG/ML 75 ML INFUS..BTL 85 ML IV (11:44)
== END 2023-03-27 09:03 | disposition home or self-care (01) ==
LOC: HO.CT 09:02
PROVIDERS: PCP Internal Medicine; Visit Provider Internal Medicine Medical Oncology
DX: R16.1 Splenomegaly, not elsewhere classified (principal); R91.8 Other nonspecific abnormal finding of lung field; J98.4 Other disorders of lung
CPT/HCPCS: 71260; 74177; Q9967

== ENCOUNTER → 2023-04-19 13:00 | Outpatient (REF) | payer MEDICARE, SELFPAY ==
--- NOTE | 2023-04-19 13:04 | CA_ITS ---
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 The calculated ejection fraction is 67% by biplane method. - The apical septum is hypokinetic. Appearance could also be related to more proximal hypertrophy. - The left atrium is moderately dilated. - No obvious valvular pathology seen on this study. Findings Left Ventricle Normal left ventricular cavity size. The left ventricular systolic function is normal. The calculated ejection fraction is 67% by biplane method. There is no evidence of regional wall motion abnormalities. Evidence suggests grade I (mild) diastolic dysfunction. There is mild septal and mild basal asymmetric hypertrophy. LV peak GLS -19.4%. Wall Motion Rest Echo Findings The apical septum is hypokinetic. Right Ventricle Normal right ventricular cavity size and systolic function. Atria The left atrium is moderately dilated. The right atrium is normal in size. Aortic Valve There is moderate calcification of the aortic valve. There is no aortic valve stenosis. There is no aortic valve regurgitation. Mitral Valve There is mild mitral annular calcification. There is mild mitral valve regurgitation. There is no mitral valve stenosis. Pulmonic Valve The pulmonic valve is likely normal. Tricuspid Valve Normal tricuspid valve structure. There is trace tricuspid valve regurgitation. There is no evidence of pulmonary hypertension. Great Vessels The asc aorta is normal in size. Venous The inferior vena cava is normal in size and collapses greater than 50% with inspiration. Pericardium/Pleural There is no evidence of pericardial effusion. Prior Study Comparison Changes noted compared to prior study dated: 07/28/2017. see comment on wall motion. Recommendations, Care & Conclusions No obvious valvular pathology seen on this study. Measurements 2D Linear Measurements IVSd: 0.92 0.6-0.9/0.6-1.0 cm LVIDd: 3.43 3.9-5.3/4.2-5.9 cm LVIDd Index: 2.58 2.4-3.2/2.2-3.1 cm/m2 LVIDs: 2.25 2.0-3.6 cm LVPWd: 0.99 0.7-1.1 cm LA Diam: 2.30 2.7-3.8/3.0-4.0 cm LAIDs Index: 1.73 1.5-2.3 cm/m2 LV Mass: 116.04 67-162/88-224 g LV Mass Index: 87.25 43-95/49-115 g/m2 LVOT Diam: 2.10 3.0+(-)1.3 cm 2D Systolic Function EF 4C: 64.70 >55% EF 2C: 70.60 >55% EF BiP: 66.50 >55% Mitral Valve MV Pk E: 0.91 MV PK A: 1.05 MV Decel Time: 378.00 E/A: 0.90 E'Lateral: 7.62 E'Medial: 6.31 E/E' Med: 14.40 E/E' Lat: 11.90 PHT: 111.00 MVA PHT: 1.98 Decel [place]: 2.40 Aortic Valve AoV Pk Howie: 1.26 AoV Mn Howie: 0.89 AoV VTI: 0.36 AoV Pk Grad: 6.00 Aov Mn Grad: 4.00 YEISON Cont.VTI: 2.16 LVOT LVOT Pk Howie: 0.83 LVOT Mn Howie: 0.49 LVOT VTI: 0.22 LVOT Pk Grad: 3.00 LVOT Mn Grad: 1.00 LVOT Diam: 2.10 LVOT Area: 3.46 Diastolic Function MV Pk E: 0.91 MV Pk A: 1.05 E/A: 0.90 E'Medial: 6.31 E/E' Med: 14.40 E' Laterial: 7.62 E/E' Lat: 11.90 Right Ventricle TAPSE (mm): 20.70 TVS' Howie: 12.50 Tricuspid Valve RA Press: 3.00 Great Vessels Aorta Sinus of Valsalva: 2.87 2.0-3.[address] [place]: 2.16 1.7-3.4 cm Ao Asc: 2.90 2.1-3.4 cm Updated in Other Vendor System with Status of Final Shine Nelson MD electronically signed on 04/21/2023 9:46:29 AM with status of Final
== END ==
LOC: HO.CARD 13:00
PROVIDERS: PCP Internal Medicine; Visit Provider Internal Medicine
DX: I48.0 Paroxysmal atrial fibrillation (principal); D73.5 Infarction of spleen
CPT/HCPCS: 93306; 93356

== ENCOUNTER → 2023-04-19 13:04 | Outpatient (BNV) | payer MEDICARE, SELFPAY | PROVIDERS: PCP Internal Medicine; Visit Provider Internal Medicine | DX: I34.0 Nonrheumatic mitral (valve) insufficiency (principal); I34.81 Nonrheumatic mitral (valve) annulus calcification | CPT/HCPCS: 93306 ==

== ENCOUNTER → 2023-05-05 13:02 | Outpatient (REF) | payer MEDICARE, SELFPAY ==
--- NOTE | 2023-05-05 13:04 | HM_ITS ---
* Total monitoring time about 6 days. * Underlying rhythm is sinus with an average ventricular rate of 68/Min. * Rare supraventricular ectopy with brief runs. Nothing sustained. * Rare ventricular ectopy with 3 very brief runs, up to 4 beats. Monomorphic. Suggestive of idioventricular rhythm, during sleep hours, * No significant pauses or AV blocks. * No patient markers or diary events. MTDD
== END ==
LOC: HO.CARD 13:02
PROVIDERS: PCP Internal Medicine; Visit Provider Internal Medicine
DX: I48.0 Paroxysmal atrial fibrillation (principal)
CPT/HCPCS: 93242

== ENCOUNTER → 2023-05-05 13:04 | Outpatient (BNV) | payer MEDICARE, SELFPAY | PROVIDERS: PCP Internal Medicine; Visit Provider Internal Medicine | DX: I48.0 Paroxysmal atrial fibrillation (principal) | CPT/HCPCS: 93244 ==

== ENCOUNTER 2023-05-15 14:14 | Outpatient (AMB) | payer MEDICARE, SELFPAY ==
--- NOTE | 2023-05-15 14:17 | A.OFFVIS_ITS ---
Intake Vital Signs 05/15/23 14:19 Height 5 ft 1 in Weight 94 lb 12.78 oz BMI 17.9 BP 160/60 H Blood Pressure Location Lt brachial Position Sitting Pulse 45 L Intake Visit Reasons: f/up echo/ and 30 day Psychology Associate Required: No Accompanied by: Daughter Allergies codeine [CODEINE] Allergy (Intermediate, Verified 05/15/23 14:19) MOOD CHANGE, dizziness indigotindisulfonic acid [Indigo [place]] Allergy (Intermediate, Verified 05/15/23 14:19) increased blood pressure cephalexin [From KEFLEX] Allergy (Unknown, Verified 05/15/23 14:19) pt cannot remember reaction blue dye [BLUE DYE] Adverse Reaction (Intermediate, Verified 05/15/23 14:19) ELEVATED BLOOD PRESSURE lisinopril [LISINOPRIL] Adverse Reaction (Intermediate, Verified 05/15/23 14:19) cough, dry cough simvastatin [From ZOCOR] Adverse Reaction (Unknown, Verified 05/15/23 14:19) pt can't remember reaction Medication List - Last Reconciled 05/15/23 by Shine Nelson MD aspirin (Adult Low Dose Aspirin) 81 mg PO DAILY calcium carbonate (Calcium) 600 mg PO BID cholecalciferol (vitamin D3) 25 mcg PO DAILY cyclobenzaprine 10 mg PO TID PRN famotidine 20 mg PO BEDTIME loratadine (Allergy Relief (loratadine)) 10 mg PO DAILY PRN Magic Mouthwash Diphen/Nystat/Antacid 1:1:1 10 mL PO QID metoprolol succinate ER 25 mg PO DAILY 90 days HPI HPI Comments History of Present Illness Details Jyoti returns for follow-up. Recently seen in consultation regarding possibly splenic infarction on CT scan. Patient herself does not have any known cardiac issues or symptoms. She is very frail. She states she is generally doing fine and does not have any specific concerns from cardiac. No symptoms. [facility] Medical History (Updated 03/23/23 @ 14:27 by Bang Cohen MD) Cavitary lesion of lung History of breast cancer History of breast cancer Cholecystectomy planned Diarrhea Surgical History History of hip surgery History of mammogram History of excision of mass History of esophagogastroduodenoscopy (EGD) History of colonoscopy History of lumpectomy of right breast History of hysterectomy Family History Father CHF (congestive heart failure) Mother Diabetes mellitus Brother No problems noted. Sister No problems noted. Daughter No problems noted. Son No problems noted. Son No problems noted. Social History Household Members: None Housing: House Are you a primary care analyst to a significant other at home: No Do you presently have visiting nurse or other home services: No Alcohol intake: never Patient Tobacco Use Status: Never used Tobacco e-Cigarette/Vaping Use: Never Used Advance Directives Date on File: 12/16/19 service: No Current occupational status: retired Cognitive needs: No Hearing needs: No Vision needs: Yes Review of Systems Const Denies weakness ENT Denies dizziness Card Denies chest pain, Denies chest pain with activity, Denies syncope, Denies rapid heart rate, Denies pedal edema, Denies edema, Denies leg edema, Denies lightheadedness, Denies palpitations, Denies dyspnea, Denies dyspnea on exertion and Denies orthopnea Resp Denies cough, Denies dyspnea and Denies dyspnea on exertion GI Denies hematochezia and Denies change in stool character Musc Denies abnormal gait, Denies muscle cramps, Denies muscle weakness, Denies numbness, Denies radiating pain into limb and Denies tingling Neuro Denies abnormal gait, Denies dizziness, Denies syncope, Denies numbness, Denies tingling and Denies weakness Endo Denies palpitations Physical Exam Vital Signs: Last Vital Signs Pulse 45 L 05/15/23 14:19 BP 160/60 H 05/15/23 14:19 BMI result Body Mass Index 17.9 Const General: comfortable and no acute distress Orientation/consciousness: patient oriented x3 HEENT Other: Unremarkable Head: Yes normal to inspection Neck Neck: Yes normal visual inspection Chest Chest palpation & inspection: normal inspection of the chest Resp Auscultation: clear to auscultation bilaterally Cardio Palpation: normal PMI Heart sounds: S1 normal heart sound present, S2 normal heart sound present, no gallops, no murmurs and no rubs GI Palpation (GI): Soft to palpation Back/Spine/Pelvis Other: unremarkable Skin General skin exam: no rashes or lesions noted Neuro General: patient oriented x3 Extrem General: Yes normal to inspection Psych Mental Status: mental status grossly normal Assessment & Plan Assessment & Plan (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 Echocardiogram with LVEF of 67%. Possible apical septal hypokinesis but more likely appearance just related to more proximal hypertrophy. She could not do a 30 day monitor. She had for about a week and that did not show any significant arrhythmias. Findings discussed with patient and daughter. Overall, they are not keen on any further workup. They would like to leave things as they are. Not entirely clear if she truly had a splenic infarct from embolism or is it a nonspecific finding. Per patient preference, no further workup at this time. Otherwise, blood pressure is also high and we discussed about blood pressure meds but again she does not want anything done and would like to just see her PCP. Coding Level of Care Code Est Pt Level 3 (52065) Diagnoses Splenic infarction D73.5
[2023-05-15 14:19] VITALS: BP 160/60; PULSE 45; BMI 17.9
== END 2023-05-15 14:57 | disposition home or self-care (01) ==
PROVIDERS: PCP Internal Medicine; Visit Provider Internal Medicine
DX: D73.5 Infarction of spleen (principal)
CPT/HCPCS: 99213

== ENCOUNTER → 2023-05-15 14:14 | Outpatient (BNVA) | payer MEDICARE, SELFPAY | PROVIDERS: PCP Internal Medicine; Visit Provider Internal Medicine | DX: D73.5 Infarction of spleen (principal) | CPT/HCPCS: 99212 ==

== ENCOUNTER 2023-07-05 13:28 | Outpatient (AMB) | payer MEDICARE, SELFPAY ==
--- NOTE | 2023-07-05 13:31 | MHC.PC.OV ---
Vital Signs 07/05/23 13:34 Height 4 ft 11 in Weight 93 lb 4 oz BMI 18.8 BP 158/66 H Blood Pressure Location Lt brachial Position Sitting Pulse 66 Pulse Source Pulse Oximeter Pulse Oximetry (%) 98 Oxygen Delivery Method Room Air Intake Visit Reasons: 6 month fu Allergies codeine [CODEINE] Allergy (Intermediate, Verified 07/05/23 13:36) MOOD CHANGE, dizziness indigotindisulfonic acid [Indigo [place]] Allergy (Intermediate, Verified 07/05/23 13:36) increased blood pressure cephalexin [From KEFLEX] Allergy (Unknown, Verified 07/05/23 13:36) pt cannot remember reaction blue dye [BLUE DYE] Adverse Reaction (Intermediate, Verified 07/05/23 13:36) ELEVATED BLOOD PRESSURE lisinopril [LISINOPRIL] Adverse Reaction (Intermediate, Verified 07/05/23 13:36) cough, dry cough simvastatin [From ZOCOR] Adverse Reaction (Unknown, Verified 07/05/23 13:36) pt can't remember reaction Medication List - Last Reconciled 07/05/23 by Regina Cole MD amlodipine 5 mg PO DAILY aspirin (Adult Low Dose Aspirin) 81 mg PO DAILY calcium carbonate (Calcium) 600 mg PO BID cholecalciferol (vitamin D3) 25 mcg PO DAILY famotidine 20 mg PO BEDTIME metoprolol succinate ER 12.5 mg (1/2 x 25 mg) PO DAILY 90 days Tobacco use date assessed: 07/05/23 Fall risk assessment: No Falls in past year Last assessed Fall Risk: 07/05/23 Dental Screening Dental Screen Date: 07/05/23 Did you have a dental visit in the last 12 months?: Yes Did you have a dental problem in the last 6 months where you did not have access to dental care?: No Was dental information given to patient?: Patient has dentist HPI 6 month fu HPI Details Patient came in today to talk about her blood pressure 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 She said that she wanted to discuss it with me 1st Her heart rate is 66 today in the office I would recommend to add amlodipine 5 mg as her blood pressure is still elevated She may continue with the metoprolol full tablet as she is doing well with whole tablet. [facility] Medical History Cavitary lesion of lung History of breast cancer History of breast cancer Cholecystectomy planned Diarrhea Surgical History History of hip surgery History of mammogram History of excision of mass History of esophagogastroduodenoscopy (EGD) History of colonoscopy History of lumpectomy of right breast History of hysterectomy Family History Father CHF (congestive heart failure) Mother Diabetes mellitus Brother No problems noted. Sister No problems noted. Daughter No problems noted. Son No problems noted. Son No problems noted. Social History Household Members: None Housing: House Are you a primary residential care facility manager to a significant other at home: No Do you presently have visiting nurse or other home services: No Alcohol intake: never Patient Tobacco Use Status: Never used Tobacco e-Cigarette/Vaping Use: Never Used Advance Directives Date on File: 12/16/19 service: No Current occupational status: retired Cognitive needs: No Hearing needs: No Vision needs: Yes Questionnaire PHQ-9 Over the last 2 weeks, how often have you been bothered by any of the following problems? 1. Little interest or pleasure in doing things: not at all 2. Feeling down, depressed, or hopeless: not at all 3. Trouble falling or staying asleep, or sleeping too much: not at all 4. Feeling tired or having little energy: several days 5. Poor appetite or overeating: not at all 6. Feeling bad about yourself - or that you are a failure or have let yourself or your family down: not at all 7. Trouble concentrating on things, such as reading the newspaper or watching television: not at all 8. Moving or speaking so slowly that other people could have noticed. Or the opposite - being so fidgety or restless that you have been moving around a lot more than usual: not at all 9. Thoughts that you would be better off or of hurting yourself in some way: not at all Total score: 1 Depression Screening Interpretation: Negative Depression Screening Done: Yes 45309 - PHQ-9 Billing: Yes Source: Developed by Drs. John Ndiaye, Naya Velasco, Mitch Lenz and colleagues, with an educational rhiannon from [employer]. Thrive Questionnaire Date Thrive assessed: 07/05/23 I am a: Patient What is your living situation today?: I have a steady place to live Within the past 12 months, did the food you bought not last and you didn't have the money to get more?: Never true Within the past 12 months, did you worry whether your food would run out before you got money to buy more?: Never true Do you have trouble paying for medicines?: No Do you have trouble getting transportation to medical appointments?: No Do you have trouble paying your heating and electricity bill?: No Do you have trouble taking care of your child, family member or friend?: No Do you have trouble with day-to-day activities such as bathing, preparing meals, shopping, managing finances, etc.?: No Are you currently unemployed and looking for a job?: No Are you interested in more education?: No Please select the resources that you would like help with: None Currently or been in a relationship where the following occur: no concerns reported THRIVE Score: 0 AUDIT C Alcohol Use Questionnaire (AUDIT-C) 1. How often do you have a drink containing alcohol?: Never 3. How often do you have six or more drinks on one occasion?: Never Total Score: 0 Score Reviewed/Action Taken: Yes LIZZ-7 AMB Questionnaire LIZZ-7 Date LIZZ - 7 assessed: 07/05/23 Feeling nervous, anxious, or on edge: 1 = Several days Not being able to stop or control worryin = Several days Worrying too much about different things: 1 = Several days Trouble relaxin = Not at all Being so restless that it is hard to sit still: 0 = Not at all Becoming easily annoyed or irritable: 0 = Not at all Feeling afraid as if something awful might happen: 0 = Not at all Total LIZZ-7 score (0-4 normal; 5-9 mild; 10-14 moderate; 15-21 severe): 3 Source: Developed by Drs. John Ndiaye, Naya Velasco, Mitch Lenz and colleagues, with an educational rhiannon from [employer]. LIZZ-7 Assessment Billing LIZZ-7 Assessment Tool: LIZZ-7 Assessment 85374 Review of Systems Const Denies chills and Denies fever(s) ENT Denies epistaxis and Denies nasal discharge Card Denies chest pain Resp Denies chest congestion, Denies cough and Denies hemoptysis GI Denies diarrhea and Denies nausea Skin/Breast Denies rash Neuro Reports no additional complaints Psych Reports no additional complaints Endo Reports no additional complaints Physical exam (Primary Care) Vital Signs: Last Vital Signs Pulse 66 07/05/23 13:34 BP 158/66 H 07/05/23 13:34 Pulse Ox 98 07/05/23 13:34 Oxygen Delivery Method Room Air 07/05/23 13:34 BMI result Body Mass Index 18.8 Tobacco/Smoking Status: Tobacco use Status Tobacco use date assessed 07/05/23 07/05/23 13:39 Patient Tobacco Use Status Never used Tobacco 07/05/23 13:33 e-Cigarette/Vaping Use Never Used 07/05/23 13:33 Depression Screening Interpretation: Negative Thrive Assessment: Date of Thrive Assessment Date Thrive assessed 11/13/20 07/05/23 13:33 Currently or been in a relationship where the following occur: no concerns reported Const General: cooperative, comfortable and no acute distress Orientation/consciousness: patient oriented x3 HENMT Head: Yes normocephalic Eyes General: appearance normal, both eyes and all related structures Neck Neck: Yes supple Resp Effort & Inspection: normal respiratory effort, no cough and no stridor Cardio Rhythm: regular rhythm Heart sounds: S1 normal heart sound present and S2 normal heart sound present Skin General skin exam: turgor normal Neuro General: patient oriented x3, tone normal and moves all extremities Extrem Right lower extremity: no edema Left lower extremity: no edema Assessment and Plan Assessment & Plan (1) HTN (hypertension): Code(s): I10 - Essential (primary) hypertension Qualifiers: Hypertension type: primary hypertension Qualified Code(s): I10 - Essential (primary) hypertension Plan Patient came in today to talk about her blood pressure 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 She said that she wanted to discuss it with me 1st Her heart rate is 66 today in the office I would recommend to add amlodipine 5 mg as her blood pressure is still elevated She may continue with the metoprolol full tablet as she is doing well with whole tablet. Coding Level of Care Code Est Pt Level 3 (81934) Diagnoses Primary hypertension I10 Hypertension type: primary hypertension Additional Codes LIZZ-7 Assessment Billing - LIZZ-7 Assessment Tool: LIZZ-7 Assessment 73802 ([id number])
[2023-07-05 13:34] VITALS: BP 158/66; PULSE 66; O2SAT 98; BMI 18.8
== END 2023-07-05 13:53 | disposition home or self-care (01) ==
PROVIDERS: PCP Internal Medicine; Visit Provider Internal Medicine
DX: I10 Essential (primary) hypertension (principal)
CPT/HCPCS: 99213

== ENCOUNTER 2023-09-29 13:31 | Outpatient (AMB) | payer MEDICARE, SELFPAY ==
[2023-09-29 13:35] VITALS: BP 118/52; BMI 17.7
--- NOTE | 2023-09-29 13:35 | MHC.PC.OV ---
Vital Signs 09/29/23 13:35 Height 5 ft 1 in Weight 93 lb 8 oz BMI 17.7 BP 118/52 L Blood Pressure Location Lt brachial Position Sitting Intake Visit Reasons: 3 month follow up Allergies codeine [CODEINE] Allergy (Intermediate, Verified 09/29/23 13:37) MOOD CHANGE, dizziness indigotindisulfonic acid [Indigo [place]] Allergy (Intermediate, Verified 09/29/23 13:37) increased blood pressure cephalexin [From KEFLEX] Allergy (Unknown, Verified 09/29/23 13:37) pt cannot remember reaction blue dye [BLUE DYE] Adverse Reaction (Intermediate, Verified 09/29/23 13:37) ELEVATED BLOOD PRESSURE lisinopril [LISINOPRIL] Adverse Reaction (Intermediate, Verified 09/29/23 13:37) cough, dry cough simvastatin [From ZOCOR] Adverse Reaction (Unknown, Verified 09/29/23 13:37) pt can't remember reaction Tobacco use date assessed: 09/29/23 Fall risk assessment: No Falls in past year Last assessed Fall Risk: 09/29/23 Dental Screening Dental Screen Date: 09/29/23 Did you have a dental visit in the last 12 months?: No Did you have a dental problem in the last 6 months where you did not have access to dental care?: No Was dental information given to patient?: No [facility] Medical History Cavitary lesion of lung History of breast cancer History of breast cancer Cholecystectomy planned Diarrhea Surgical History History of hip surgery History of mammogram History of excision of mass History of esophagogastroduodenoscopy (EGD) History of colonoscopy History of lumpectomy of right breast History of hysterectomy Family History Father CHF (congestive heart failure) Mother Diabetes mellitus Brother No problems noted. Sister No problems noted. Daughter No problems noted. Son No problems noted. Son No problems noted. Social History Household Members: None Housing: House Are you a primary client care representative to a significant other at home: No Do you presently have visiting nurse or other home services: No Alcohol intake: never Patient Tobacco Use Status: Never used Tobacco e-Cigarette/Vaping Use: Never Used Advance Directives Date on File: 12/16/19 service: No Current occupational status: retired Cognitive needs: No Hearing needs: No Vision needs: Yes Questionnaire Thrive Questionnaire Date Thrive assessed: 07/05/23 AUDIT C Alcohol Use Questionnaire (AUDIT-C) 1. How often do you have a drink containing alcohol?: Never 3. How often do you have six or more drinks on one occasion?: Never Total Score: 0 Score Reviewed/Action Taken: Yes LIZZ-7 AMB Questionnaire LIZZ-7 Date LIZZ - 7 assessed: 07/05/23 Source: Developed by Drs. John Ndiaye, Naya Velasco, Mitch Lenz and colleagues, with an educational rhiannon from [employer]. Physical exam (Primary Care) Tobacco/Smoking Status: Tobacco use Status Tobacco use date assessed 07/05/23 07/05/23 13:39 Patient Tobacco Use Status Never used Tobacco 07/05/23 13:33 e-Cigarette/Vaping Use Never Used 07/05/23 13:33 Thrive Assessment: Date of Thrive Assessment Date Thrive assessed 07/05/23 07/05/23 13:50 Coding
--- NOTE | 2023-09-29 13:40 | AM.OFFVISMDC ---
Intake Vital Signs 09/29/23 13:35 Height 5 ft 1 in Weight 93 lb 8 oz BMI 17.7 BP 118/52 L Blood Pressure Location Lt brachial Position Sitting Intake Visit Reasons: 3 month follow up Allergies codeine [CODEINE] Allergy (Intermediate, Verified 09/29/23 13:37) MOOD CHANGE, dizziness indigotindisulfonic acid [Indigo [place]] Allergy (Intermediate, Verified 09/29/23 13:37) increased blood pressure cephalexin [From KEFLEX] Allergy (Unknown, Verified 09/29/23 13:37) pt cannot remember reaction blue dye [BLUE DYE] Adverse Reaction (Intermediate, Verified 09/29/23 13:37) ELEVATED BLOOD PRESSURE lisinopril [LISINOPRIL] Adverse Reaction (Intermediate, Verified 09/29/23 13:37) cough, dry cough simvastatin [From ZOCOR] Adverse Reaction (Unknown, Verified 09/29/23 13:37) pt can't remember reaction Medication List - Last Reconciled 09/29/23 by Regina Cole MD amlodipine 5 mg PO DAILY aspirin (Adult Low Dose Aspirin) 81 mg PO DAILY calcium carbonate (Calcium 600) 600 mg PO BID cholecalciferol (vitamin D3) 25 mcg PO DAILY famotidine 20 mg PO BEDTIME metoprolol succinate ER 12.5 mg (1/2 x 25 mg) PO DAILY 90 days HPI 3 month follow up HPI Details Patient is 83-year-old female came in today for Medicare wellness visit and regular follow-up Blood pressure is well-controlled patient is on amlodipine 5 mg and metoprolol Tolerating medication no side effects Labs done recently reviewed with the patient her hemoglobin has improved She will return in 6 months for follow-up appointment now HPI Comments History of Present Illness Details AWV Medical/social history reviewed Past medical history reviewed [place] of care / care team list updated Surgical/ hospitalization history reviewed Current medications including OTC and supplements reviewed Family history reviewed Tobacco controlled form updated Alcohol use form updated Illicit drug use in social history reviewed Current diagnosis of depression ?screening updated Appropriate PHQ 2/PHQ-9 completed . Vital signs reviewed Alcohol tobacco drug use reviewed and discussed . MMSE completed . ? Fall risk: ?Assessed Fall history: ?None Have you had any falls with injury in the past year?? No Have you had 2 or more falls in the past year?? No Fall risk assessment completed Home safety discussed with the patient Functional ability assessed and discussed and documented Activities of daily living reviewed and appropriate actions taken . HRA filled out by the patient and reviewed by provider and scanned . Appropriate written screening schedule established . Any health advise needed provided . Advance care planning discussed with the patient , necessary paperwork filled Examination IPPE/AWE: Balance failed Romberg failed Tandem failed walk-in turn failed rise from sit to stand intact . ?Hearing ?whisper test pass . Medication list reviewed, patient is stable on medications All other providers patient is seeing discussed and noted . [facility] Medical History Cavitary lesion of lung History of breast cancer History of breast cancer Cholecystectomy planned Diarrhea Surgical History History of hip surgery History of mammogram History of excision of mass History of esophagogastroduodenoscopy (EGD) History of colonoscopy History of lumpectomy of right breast History of hysterectomy Family History Father CHF (congestive heart failure) Mother Diabetes mellitus Brother No problems noted. Sister No problems noted. Daughter No problems noted. Son No problems noted. Son No problems noted. Social History Household Members: None Housing: House Are you a primary college and career counselor to a significant other at home: No Do you presently have visiting nurse or other home services: No Alcohol intake: never Patient Tobacco Use Status: Never used Tobacco e-Cigarette/Vaping Use: Never Used Advance Directives Date on File: 12/16/19 service: No Current occupational status: retired Cognitive needs: No Hearing needs: No Vision needs: Yes Questionnaire Medicare Wellness Checkup What is your age?: 80 or older What gender do you identify with?: female During the past 4 weeks, how much have you been bothered by emotional problems such as feeling anxious, depressed, irritable, sad or downhearted, and blue?: not at all During the past 4 weeks, has your physical & emotional health limited your social activities with family, friends, neighbors, or groups?: not at all During the past 4 weeks, how much bodily pain have you generally had?: very mild pain During the past 4 weeks, was someone available to help you if you needed & wanted help?: yes, as much as I wanted During the past 4 weeks, what was the hardest physical activity you could do for at least 2 minutes?: heavy Can you get to places out of walking distance without help? (For eg., can you travel alone on buses, taxis or drive your car?): Yes Can you go shopping for groceries or clothes without someone's help?: No Can you prepare your own meals?: Yes Can you do your housework without help?: No Because of any health problems, do you need the help of another person with your personal care needs such as eating, bathing, dressing or getting around the house?: No Can you handle your own money without help?: Yes During the past 4 weeks, how would you rate your health in general?: fair During the past 4 weeks how have things been going for you?: pretty well Are you having difficulties driving your car?: no Do you always fasten your seat belt when you are in a car?: yes, usually During past 4 weeks, have you been bothered by the following: never: Sexual problems?, Teeth or denture problems? and Problems using the telephone?, sometimes: Trouble eating well? and often: Falling or dizzy when standing up and Tiredness or fatigue? Have you fallen 2 or more times in the past year?: No Are you afraid of falling?: Yes Are you a smoker?: no During the past 4 weeks, how many drinks of wine, beer, or other alcoholic beverages did you have?: no alcohol at all Do you exercise for about 20 minutes 3 or more times a week?: no, I usually do not exercise this much Have you been given information to help with the following?: yes: Keeping track of your medications? and no: Hazards in your house that might hurt you? How often do you have trouble taking medicines the way you have been told to take them?: sometimes I take medicine as prescribed How confident are you that you can control & manage most of your health problems?: very confident What is your race?: White Mini Mental State Exam (MMSE) Orientation What is the (year) (season) (date) (day) (month)?: year, season, date, day and month Where are we (state) (county) (town or city) (hospital) (floor)?: state, county, town or city, hospital/clinic and floor Score Score: 10 Activity of Daily Living Bathing - sponge bath, tub bath or shower: receives no assistance (gets in/out by self, if usual bathing means Dressing - getting clothes from closets & drawers, including inner/outer garments & fasteners.: gets clothes & gets completely dressed without help Toileting - going to the 'toilet room' for urine/bowel elimination & cleaning self/arranging clothes: goes to toilet room, cleans self, arranges clothes without help Transfer: moves in & out of bed and chair without help (may use support object) Continence: controls urination/bowel movements completely by self Feeding: feeds self without help Total Score: 0 Information obtained from: patient Using telephone: independent Traveling: independent Shopping: dependent Preparing meals: dependent Housework: dependent Taking medicine: independent Managing money: needs assistance PHQ-9 Over the last 2 weeks, how often have you been bothered by any of the following problems? 1. Little interest or pleasure in doing things: not at all 2. Feeling down, depressed, or hopeless: not at all 3. Trouble falling or staying asleep, or sleeping too much: not at all 4. Feeling tired or having little energy: several days 5. Poor appetite or overeating: not at all 6. Feeling bad about yourself - or that you are a failure or have let yourself or your family down: not at all 7. Trouble concentrating on things, such as reading the newspaper or watching television: not at all 8. Moving or speaking so slowly that other people could have noticed. Or the opposite - being so fidgety or restless that you have been moving around a lot more than usual: not at all 9. Thoughts that you would be better off or of hurting yourself in some way: not at all Total score: 1 Depression Screening Interpretation: Negative Depression Screening Done: Yes 63170 - PHQ-9 Billing: Yes Source: Developed by Drs. John Ndiaye, Naya Velasco, Mitch Lenz and colleagues, with an educational rhiannon from [employer]. Review of Systems Const Denies chills and Denies fever(s) ENT Denies epistaxis and Denies nasal discharge Card Denies chest pain Resp Denies chest congestion, Denies cough and Denies hemoptysis GI Denies diarrhea and Denies nausea Skin/Breast Denies rash Neuro Reports no additional complaints Psych Reports no additional complaints Endo Reports no additional complaints Physical Exam Vital Signs: Last Vital Signs BP 118/52 L 09/29/23 13:35 BMI result Body Mass Index 17.7 Const General: cooperative, comfortable and no acute distress Orientation/consciousness: patient oriented x3 HEENT Head: Yes normocephalic Eyes General: appearance normal, both eyes and all related structures Neck Other: Supple Neck: Yes supple Resp Effort & Inspection: normal respiratory effort, no cough and no stridor Cardio Rhythm: regular rhythm Heart sounds: S1 normal heart sound present and S2 normal heart sound present Skin General skin exam: turgor normal Neuro Other: Motor sensory intact General: patient oriented x3, tone normal and moves all extremities Extrem Other: No lower extremity swelling. Right lower extremity: no edema Left lower extremity: no edema Psych Other: Normal effect, speech clear Assessment & Plan Assessment & Plan (1) Medicare annual wellness visit, initial: Code(s): Z00.00 - Encounter for general adult medical examination without abnormal findings (2) HTN (hypertension): Code(s): I10 - Essential (primary) hypertension Qualifiers: Hypertension type: primary hypertension Qualified Code(s): I10 - Essential (primary) hypertension (3) Chronic anemia: Code(s): D64.9 - Anemia, unspecified Plan Patient is 83-year-old female came in today for Medicare wellness visit and regular follow-up Blood pressure is well-controlled patient is on amlodipine 5 mg and metoprolol Tolerating medication no side effects Labs done recently reviewed with the patient her hemoglobin has improved She will return in 6 months for follow-up appointment now Medications: Refilled amlodipine 5 mg PO DAILY 90 tabs 1RF Quality Reporting (2019) Depression/Bipolar (159/160/161/177) PHQ-9: Total score: 1 Coding Level of Care Code Medicare First (G0438) Est Pt Level 3 (45960) Diagnoses Medicare annual wellness visit, initial Z00.00 Primary hypertension I10 Hypertension type: primary hypertension Chronic anemia D64.9 CPT Codes Advance Care Planning - Time spent: 1-15 minutes, not on file ([id number]) Advance Care Planning Advance Care Planning discussion: Completed/Scanned Forms completed: JARRETT Time spent: 1-15 minutes, not on file
== END 2023-09-29 14:03 | disposition home or self-care (01) ==
PROVIDERS: PCP Internal Medicine; Visit Provider Internal Medicine
DX: Z00.00 Encounter for general adult medical examination without abnormal findings (principal); I10 Essential (primary) hypertension; D64.9 Anemia, unspecified
CPT/HCPCS: 1124F; 99213; G0438

== ENCOUNTER 2023-11-22 13:46 | Outpatient (REF) | payer MEDICARE, SELFPAY ==
--- NOTE | ~2023-11-22 | MM_ITS ---
EXAMINATION: BONE DENSITOMETRY CLINICAL INDICATION: Osteoporosis. COMPARISON: Previous BD dated 07/06/2021 and baseline BD dated 04/13/2006. TECHNIQUE: Using a [employer] DXA System (software version: 13.1) manufactured by [employer], dual-energy x-ray absorptiometry was performed of the lumbar spine and left hip. The images are of good technical quality. Summary results are attached. FINDINGS: RIGHT FEMUR, NECK: Current: BMD 0.512 g/cm2, Z-score -1.0, T-score -3.8, osteoporosis. Prior: BMD 0.533 g/cm2. Baseline: BMD 0.871 g/cm2. RIGHT FEMUR, TOTAL: Current: BMD 0.531 g/cm2, Z-score -1.1, T-score -3.8, osteoporosis, 2.0% decrease from previous, 41.3% decrease from baseline (<5% change is not significant). Prior: BMD 0.542 g/cm2. Baseline: BMD 0.904 g/cm2. AP SPINE L1-L3 (excluding L4): The data of L1-L4 has been changed to exclude the L4 vertebral body, because degenerative sclerosis at this level may cause overestimation of lumbar spine density. Current: BMD 0.933 g/cm2, Z-score 0.7, T-score -2.0, osteopenia, 5.4% decrease from previous, 7.3% decrease from baseline (<5% change is not significant). Prior: BMD 0.986 g/cm2. Baseline: BMD 1.006 g/cm2. IDENTIFIED RISK FACTORS: Low body weight, history of fracture (adult), menopause, hysterectomy. HISTORY OF FRACTURE: Femur/hip. MEDICATIONS: Calcium supplements or multivitamin, vitamin D, Prolia. MM/XR DEXA axial skeleton IMPRESSION: 1. DIAGNOSIS: Severe osteoporosis based on the lowest T-score value of -3.8 in the femoral neck and total femur, and history of fracture applying World Health Organization criteria. 2. 10-YEAR FRACTURE RISK PREDICTION, FRAX: According to the guidelines, FRAX calculation should only be performed on patients in the osteopenia bone density category. Therefore, FRAX was not performed on this patient. 3. Treatment Recommendations: NOF guidelines recommend consideration for treatment in postmenopausal women and men age 50 and older presenting with the following: -A hip or vertebral (clinical or morphometric) fracture. -T-score less than or equal to -2.5 at the femoral neck or spine after appropriate evaluation to exclude secondary causes. -Low bone mass at the hip or spine and a 10-year fracture probability by FRAX of greater than or equal to 3% for hip fracture or greater than or equal to 20% for major osteoporotic fracture based on the [place] adapted WHO algorithm. 4. Other Recommendations: All treatment decisions require clinical judgment and consideration of individual patient factors, including patient preferences, comorbidities, previous drug use, risk factors not captured in the FRAX model (e.g. frailty, falls, vitamin D deficiency, increased bone turnover, interval significant decline in bone density) and possible under or overestimation of fracture risk by FRAX. Additional medical evaluation for secondary cause of low bone mineral density may be appropriate. FUTURE SCAN RECOMMENDATION: People with diagnosed cases of osteoporosis or at high risk for fracture should have regular bone mineral density tests. For patients eligible for Medicare, routine testing is allowed once every 2 years. The testing frequency can be increased to one year for patients who have rapidly progressing disease, those who are receiving or discontinuing medical therapy to restore bone mass, or have additional risk factors. Electronically signed by: Thierno Cameron MD 11/28/2023 11:13 AM EDT
== END 2023-11-22 13:47 | disposition home or self-care (01) ==
LOC: HO.MAMMO 13:46
PROVIDERS: PCP Internal Medicine; Visit Provider Internal Medicine Medical Oncology
DX: M81.0 Age-related osteoporosis without current pathological fracture (principal)
CPT/HCPCS: 77080

== ENCOUNTER → 2024-01-04 16:02 | Outpatient (BNVA) | payer MEDICARE, SELFPAY | PROVIDERS: PCP Internal Medicine ==

== ENCOUNTER → 2024-01-11 13:00 | Outpatient (BNVA) | payer MEDICARE, SELFPAY | PROVIDERS: PCP Internal Medicine ==

== ENCOUNTER 2024-04-02 13:03 | Outpatient (AMB) | payer MEDICARE, SELFPAY ==
[2024-04-02 13:05] VITALS: BP 126/74; PULSE 62; O2SAT 98; BMI 18.0
--- NOTE | 2024-04-02 13:05 | A.OFFPC_ITS ---
Vital Signs 04/02/24 13:05 Height 5 ft 1 in Weight 95 lb 4 oz BMI 18.0 BP 126/74 Blood Pressure Location Lt brachial Position Sitting Pulse 62 Pulse Source Pulse Oximeter Pulse Oximetry (%) 98 Oxygen Delivery Method Room Air Intake Visit Reasons: 6 month follow up Allergies codeine [CODEINE] Allergy (Intermediate, Verified 04/02/24 13:05) MOOD CHANGE, dizziness indigotindisulfonic acid [Indigo [place]] Allergy (Intermediate, Verified 04/02/24 13:05) increased blood pressure cephalexin [From KEFLEX] Allergy (Unknown, Verified 04/02/24 13:05) pt cannot remember reaction blue dye [BLUE DYE] Adverse Reaction (Intermediate, Verified 04/02/24 13:05) ELEVATED BLOOD PRESSURE lisinopril [LISINOPRIL] Adverse Reaction (Intermediate, Verified 04/02/24 13:05) cough, dry cough simvastatin [From ZOCOR] Adverse Reaction (Unknown, Verified 04/02/24 13:05) pt can't remember reaction Medication List - Last Reconciled 04/02/24 by Regina Cole MD amlodipine 5 mg PO DAILY aspirin (Adult Low Dose Aspirin) 81 mg PO DAILY calcium carbonate (Calcium 600) 600 mg PO BID cholecalciferol (vitamin D3) 25 mcg PO DAILY famotidine 20 mg PO BEDTIME metoprolol succinate ER 12.5 mg (1/2 x 25 mg) PO DAILY 90 days Tobacco use date assessed: 04/02/24 Last assessed Fall Risk: 04/02/24 Dental Screening Dental Screen Date: 04/02/24 Did you have a dental visit in the last 12 months?: No Did you have a dental problem in the last 6 months where you did not have access to dental care?: No Was dental information given to patient?: Patient has dentist HPI 6 month follow up HPI Details History - bulleted - The patient is an 83-year-old female p resenting with a follow-up for blood pressure management. - Experienced dizziness and lightheadedn ess earlier, resolved by the time of visit. - Hemoglobin level , stabilized to a bas alexandro around 9 g/dL. - Currently not taking iron supplements; Vitamin D supplementation is ongoing. - established with Hematology and is hav ing regular CBC through them - blood pressure is well-controlled sariah ent is on amlodipine 5 mg and metoprolol 12.5 mg once a day Problem List - Essential Hypertension - Anemia - Vitamin D Deficiency Patient Instructions - Continue taking Vitamin D supplements as prescribed. - Continue taking famotidine for stomach health as directed. - Follow up with your other healthcare Dr. Noel desai, as scheduled. - Stay warm and avoid falls during the c old months. Review of Systems - Cardiovascular: Denies current dizzine ss, lightheadedness. - Renal: Denies issues following recent labs. - General: No fever no chills - Neurological: No headaches no dizziness - Ear nose throat: No sore throat no hearing difficulty no ear pain - Cardiovascular: No syncope, no chest pain, no palpitations - Gastrointestinal: No nausea vomiting or diarrhea - Endocrine: No polyuria polydipsia no heat intolerance - Genitourinary: No dysuria , no blood in urine Physical Exam - General: No acute distress - HEENT: No acute findings - Neck: Supple - Respiratory system: Able to talk in f ull sentences, no audible wheeze - cardiovascular: S1-S2 regular in rat e and rhythm - Gastrointestinal: No pain - Extremities: No new findings - 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 Sister No problems noted. Daughter No problems noted. Son No problems noted. Son No problems noted. Social History Household Members: None Housing: House Are you a primary career placement specialist to a significant other at home: No Do you presently have visiting nurse or other home services: No Alcohol intake: never Patient Tobacco Use Status: Never used Tobacco e-Cigarette/Vaping Use: Never Used Advance Directives Date on File: 12/16/19 service: No Current occupational status: retired Cognitive needs: No Hearing needs: No Vision needs: Yes Questionnaire PHQ-9 Over the last 2 weeks, how often have you been bothered by any of the following problems? 1. Little interest or pleasure in doing things: not at all 2. Feeling down, depressed, or hopeless: not at all 3. Trouble falling or staying asleep, or sleeping too much: not at all 4. Feeling tired or having little energy: several days 5. Poor appetite or overeating: not at all 6. Feeling bad about yourself - or that you are a failure or have let yourself or your family down: not at all 7. Trouble concentrating on things, such as reading the newspaper or watching television: not at all 8. Moving or speaking so slowly that other people could have noticed. Or the opposite - being so fidgety or restless that you have been moving around a lot more than usual: not at all 9. Thoughts that you would be better off or of hurting yourself in some way: not at all Total score: 1 Depression Screening Interpretation: Negative Depression Screening Done: Yes 86046 - PHQ-9 Billing: Yes Source: Developed by Drs. John Ndiaye, Naya Velasoc, Mitch Lenz and colleagues, with an educational rhiannon from [employer]. Thrive Questionnaire Date Thrive assessed: 04/02/24 I am a: Patient What is your living situation today?: I have a steady place to live Within the past 12 months, did the food you bought not last and you didn't have the money to get more?: Never true Within the past 12 months, did you worry whether your food would run out before you got money to buy more?: Never true Do you have trouble paying for medicines?: No Do you have trouble getting transportation to medical appointments?: No Do you have trouble paying your heating and electricity bill?: No Do you have trouble taking care of your child, family member or friend?: No Do you have trouble with day-to-day activities such as bathing, preparing meals, shopping, managing finances, etc.?: No Are you currently unemployed and looking for a job?: No Are you interested in more education?: No Please select the resources that you would like help with: None Currently or been in a relationship where the following occur: No concerns reported THRIVE Score: 0 AUDIT C Alcohol Use Questionnaire (AUDIT-C) 1. How often do you have a drink containing alcohol?: Never 3. How often do you have six or more drinks on one occasion?: Never Total Score: 0 Score Reviewed/Action Taken: Yes LIZZ-7 AMB Questionnaire LIZZ-7 Date LIZZ - 7 assessed: 04/02/24 Feeling nervous, anxious, or on edge: 1 = Several days Not being able to stop or control worryin = Several days Worrying too much about different things: 1 = Several days Trouble relaxin = Not at all Being so restless that it is hard to sit still: 0 = Not at all Becoming easily annoyed or irritable: 0 = Not at all Feeling afraid as if something awful might happen: 0 = Not at all Total LIZZ-7 score (0-4 normal; 5-9 mild; 10-14 moderate; 15-21 severe): 3 Source: Developed by Drs. John Ndiaye, Naya Velasco, Mitch Lenz and colleagues, with an educational rhiannon from [employer]. LIZZ-7 Assessment Billing LIZZ-7 Assessment Tool: LIZZ-7 Assessment 11306 Physical exam (Primary Care) Vital Signs: Last Vital Signs Pulse 62 04/02/24 13:05 BP 126/74 04/02/24 13:05 Pulse Ox 98 04/02/24 13:05 Oxygen Delivery Method Room Air 04/02/24 13:05 BMI result Body Mass Index 18.0 Tobacco/Smoking Status: Tobacco use Status Tobacco use date assessed 04/02/24 04/02/24 13:10 Patient Tobacco Use Status Never used Tobacco 04/02/24 13:10 e-Cigarette/Vaping Use Never Used 04/02/24 13:10 PHQ-9: PHQ-9 Score PHQ-9: Total score 1 04/02/24 13:15 Depression Screening Interpretation: Negative Thrive Assessment: Date of Thrive Assessment Date Thrive assessed 04/02/24 04/02/24 13:15 Currently or been in a relationship where the following occur: No concerns reported Coding Level of Care Code Est Pt Level 3 (81847) Diagnoses Anemia in stage 3a chronic kidney disease N18.31; D63.1 Chronic kidney disease stage: stage 3 (moderate) Chronic kidney disease stage 3 subtype: stage 3a (GFR 45-59) Primary hypertension I10 Hypertension type: primary hypertension Additional Codes LIZZ-7 Assessment Billing - LIZZ-7 Assessment Tool: LIZZ-7 Assessment 02514 ([id number]) PHQ-9 - 45818 - PHQ-9 Billing: Yes ([id number]) Assessment & Plan Assessment & Plan (1) Anemia in chronic kidney disease (CKD): Code(s): N18.9 - Chronic kidney disease, unspecified; D63.1 - Anemia in chronic kidney disease Category: Medical Qualifiers: Chronic kidney disease stage: stage 3 (moderate) Chronic kidney disease stage 3 subtype: stage 3a (GFR 45-59) Qualified Code(s): N18.31 - Chronic kidney disease, stage 3a; D63.1 - Anemia in chronic kidney disease (2) HTN (hypertension): Code(s): I10 - Essential (primary) hypertension Category: Medical Qualifiers: Hypertension type: primary hypertension Qualified Code(s): I10 - Essential (primary) hypertension Plan - The patient is an 83-year-old female presenting with a follow-up for blood pressure management. - Experienced dizziness and lightheadedness earlier, resolved by the time of visit. - Hemoglobin level , stabilized to a baseline around 9 g/dL. - Currently not taking iron supplements; Vitamin D supplementation is ongoing. - patient suffers from chronic kidney disease with GFR in 50s and 40s - established with Hematology and is having regular CBC through them - blood pressure is well-controlled patient is on amlodipine 5 mg and metoprolol 12.5 mg once a day Problem List - Essential Hypertension - Anemia - Vitamin D Deficiency Patient Instructions - Continue taking Vitamin D supplements as prescribed. - Continue taking famotidine for stomach health as directed. - Follow up with your other healthcare provider, Dr. Cohen, as scheduled. - Stay warm and avoid falls during the cold months.
--- OUTSIDE RECORDS SUMMARY | 2024-04-02 14:47 | XMS_ITS ---
Author Organization [facility] on Address Unknown Allergies, Adverse Reactions, Alerts Substance Reaction Status Noted Date Resolved Date Tylenol with codeine active 09/17/2020 Lisinopril active 09/17/2020 Indigo [place] active 09/17/2020 Cephalexin active 09/17/2020 Problems Problem Status Start Date End Date DISPLACED INTERTROCHANTERIC FRACTURE OF LEFT FEMUR, SUBSEQUENT ENCOUNTER FOR CLOSED FRACTURE WITH ROUTINE HEALING (Primary) (S72.142D - ICD-10-CM) ACTIVE 09/17/2020 ENCOUNTER FOR OTHER ORTHOPED IC AFTERCARE (Z47.89 - ICD-10-CM) ACTIVE 09/17/2020 ANEMIA, UNSPECIFIED (D64.9 - ICD-10-CM) ACTIVE 0 09/17/2020 MICROSCOPIC COLITIS, UNSPECIFIED (K52.839 - ICD-10-CM) ACTIVE 09/17/2020 HYPERLIPIDEMIA, UNSPECIFIED (E78.5 - ICD-10-CM) ACTIVE 09/17/2020 ESSENTIAL (PRIMARY) HYPERTENSION (I10 - ICD-10-CM) ACT SHAHID 09/17/2020 Encounters Encounter Performer Performer Role Encounter Diagnoses Location Date Discharge - Discharged to home or self care - Home (Agency Unknown) - Private home/apt. with home health services [facility] 09/17/2020 07:54 pm EDT - 10/10/2020 10:30 am EDT Immunizations Vaccine Date SARS-COV-2 (COVID-19) 06/06/2020 12:00 a m EDT Social History
== END 2024-04-02 13:26 | disposition home or self-care (01) ==
PROVIDERS: PCP Internal Medicine; Visit Provider Internal Medicine
DX: N18.31 Chronic kidney disease, stage 3a (principal); D63.1 Anemia in chronic kidney disease; I10 Essential (primary) hypertension

== ENCOUNTER → 2024-04-02 13:03 | Outpatient (BNVA) | payer MEDICARE, SELFPAY | PROVIDERS: PCP Internal Medicine; Visit Provider Internal Medicine | DX: I12.9 Hypertensive chronic kidney disease with stage 1 through stage 4 chronic kidney disease, or unspecified chronic kidney disease (principal); N18.31 Chronic kidney disease, stage 3a; D63.1 Anemia in chronic kidney disease | CPT/HCPCS: 96127; 99212 ==

== ENCOUNTER 2024-05-21 09:01 | Outpatient (AMB) | payer MEDICARE, SELFPAY ==
[2024-05-21 09:09] VITALS: BP 120/62; RESP 18; BMI 18.6
--- NOTE | 2024-05-21 09:09 | A.OFFPC_ITS ---
Vital Signs 05/21/24 09:09 Height 5 ft 1 in Weight 98 lb 3 oz BMI 18.6 BP 120/62 Blood Pressure Location Lt brachial Position Sitting Respiration 18 Intake Visit Reasons: Back Pain Dizziness Allergies codeine [CODEINE] Allergy (Intermediate, Verified 05/21/24 09:10) MOOD CHANGE, dizziness indigotindisulfonic acid [Indigo [place]] Allergy (Intermediate, Verified 05/21/24 09:10) increased blood pressure cephalexin [From KEFLEX] Allergy (Unknown, Verified 05/21/24 09:10) pt cannot remember reaction blue dye [BLUE DYE] Adverse Reaction (Intermediate, Verified 05/21/24 09:10) ELEVATED BLOOD PRESSURE lisinopril [LISINOPRIL] Adverse Reaction (Intermediate, Verified 05/21/24 09:10) cough, dry cough simvastatin [From ZOCOR] Adverse Reaction (Unknown, Verified 05/21/24 09:10) pt can't remember reaction Medication List - Last Reconciled 05/21/24 by Regina Cole MD amlodipine 5 mg PO DAILY aspirin (Adult Low Dose Aspirin) 81 mg PO DAILY calcium carbonate (Calcium 600) 600 mg PO BID cholecalciferol (vitamin D3) 25 mcg PO DAILY famotidine 20 mg PO BEDTIME metoprolol succinate ER 12.5 mg (1/2 x 25 mg) PO DAILY 90 days Tobacco use date assessed: 05/21/24 Fall risk assessment: No Falls in past year Last assessed Fall Risk: 05/21/24 Dental Screening Dental Screen Date: 05/21/24 Did you have a dental visit in the last 12 months?: No Did you have a dental problem in the last 6 months where you did not have access to dental care?: No Was dental information given to patient?: Patient declined HPI Back Pain Dizziness HPI Details History - The patient is an 83-year-old female p resenting with dizziness and ear pain. - She experienced severe dizziness while bending over a sink, different in severity from previous intermittent episodes. - There is acute pain in the left ear fo r the past few days, unusual due to previously experiencing right ear discomfort. - Concern for potential urinary infectio n UA done today confirms cystitis with 3+ leuk esterase Cipro 250 mg sent to be taken b.i.d. for next 5 days Patient was notified Problem List - Dizziness, likely vertigo - Left earache - cystitis acute with hematuria Patient Instructions - patient is allergic to blue dyes and brittni guajardo has blue dye so it was not sent patient was notified - Avoid rapid head movements to prevent triggering dizziness. - Stay hydrated and rest for a few days to recover. - take antibiotic sent for urinary tract infection. - Contact the physician if there is no i mprovement or if symptoms worsen. Review of Systems - General: No fever no chills - Neurological: No headaches - Ear nose throat: No sore throat no hearing difficulty no ear pain - Cardiovascular: No syncope, no chest pain, no palpitations - Gastrointestinal: No nausea vomiting or diarrhea - Endocrine: No polyuria polydipsia no heat intolerance Physical Exam General: No acute distress HEENT: Left ear pain, no inflammation or infection observed Neck: Supple Respiratory system: Able to talk in full sentences, no audible wheeze cardiovascular: S1-S2 regular in rate and rhythm Gastrointestinal: No pain Extremities: No new findings 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 Sister No problems noted. Daughter No problems noted. Son No problems noted. Son No problems noted. Social History Household Members: None Housing: House Are you a primary health care consultant to a significant other at home: No Do you presently have visiting nurse or other home services: No Alcohol intake: never Patient Tobacco Use Status: Never used Tobacco e-Cigarette/Vaping Use: Never Used Advance Directives Date on File: 12/16/19 service: No Current occupational status: retired Cognitive needs: No Hearing needs: No Vision needs: Yes Questionnaire PHQ-9 Over the last 2 weeks, how often have you been bothered by any of the following problems? 84373 - PHQ-9 Billing: Patient declined-do not bill Source: Developed by Drs. John Ndiaye, Naya Velasco, Mitch Lenz and colleagues, with an educational rhiannon from [employer]. Thrive Questionnaire Date Thrive assessed: 04/02/24 AUDIT C Alcohol Use Questionnaire (AUDIT-C) 1. How often do you have a drink containing alcohol?: Never 3. How often do you have six or more drinks on one occasion?: Never Total Score: 0 Score Reviewed/Action Taken: Yes LIZZ-7 AMB Questionnaire LIZZ-7 Date LIZZ - 7 assessed: 04/02/24 Source: Developed by Drs. John Ndiaye, Naya Velasco, Mitch Lenz and colleagues, with an educational rhiannon from [employer]. Physical exam (Primary Care) Vital Signs: Last Vital Signs Resp 18 05/21/24 09:09 BP 120/62 05/21/24 09:09 BMI result Body Mass Index 18.6 Tobacco/Smoking Status: Tobacco use Status Tobacco use date assessed 05/21/24 05/21/24 09:10 Patient Tobacco Use Status Never used Tobacco 05/21/24 09:10 e-Cigarette/Vaping Use Never Used 05/21/24 09:10 Thrive Assessment: Date of Thrive Assessment Date Thrive assessed 04/02/24 05/21/24 09:10 Results AMB Urinalysis, Automated UA Leukoctes 500 Henry/uL Last Edit by ISMAEL Aguilera on 05/21/24 10: 23 UA Nitrite Positive Last Edit by ISMAEL Aguilera on 05/21/24 10:23 UA Urobilinogen 0.2 mg/dL Last Edit by ISMAEL Aguilera on 05/21/24 10:23 UA Protein 30 mg/dL Last Edit by ISMAEL Aguilera on 05/21/24 10:23 UA pH 6.0 Last Edit by ISMAEL Aguilera on 05/21/24 10:23 UA Blood 25 [place]/uL Last Edit by ISMAEL Aguilera on 05/21/24 10:23 UA Specific [place] 1.015 Last Edit by ISMAEL Aguilera on 05/21/24 10:23 UA Ketone Negative Last Edit by ISMAEL Aguilera on 05/21/24 10:23 UA Bilirubin 0 mg/dL Last Edit by ISMAEL Aguilera on 05/21/24 10:23 UA Glucose 0 mg/dL Last Edit by ISMAEL Aguilera on 05/21/24 10:23 Results Reviewed Results Reviewed: Laboratory Last Values Urine pH (Auto) 6.0 05/21/24 10:21 Specific [place] (Auto) 1.015 05/21/24 10:21 Urine Protein (Auto) 30 mg/dL 05/21/24 10:21 Glucose (UA)(Auto) 0 mg/dL 05/21/24 10:21 Urine Ketones (Auto) Negative 05/21/24 10:21 Urine Blood (Auto) 25 [place]/uL 05/21/24 10:21 Urine Nitrite (Auto) Positive 05/21/24 10:21 Urine Bilirubin (Auto) 0 mg/dL 05/21/24 10:21 Urine Urobilinogen (Auto) 0.2 mg/dL 05/21/24 10:21 Leukocyte Esterase (Auto) 500 Henry/uL 05/21/24 10:21 Coding Level of Care Code Est Pt Level 3 (69971) Diagnoses Vertigo R42 Acute cystitis with hematuria N30.01 Assessment & Plan Assessment & Plan (1) Vertigo: Code(s): R42 - Dizziness and giddiness Category: Medical (2) Acute cystitis with hematuria: Code(s): N30.01 - Acute cystitis with hematuria Category: Medical Plan History - The patient is an 83-year-old female presenting with dizziness and ear pain. - She experienced severe dizziness while bending over a sink, different in severity from previous intermittent episodes. - There is acute pain in the left ear for the past few days, unusual due to previously experiencing right ear discomfort. - Concern for potential urinary infection UA done today confirms cystitis with 3+ leuk esterase Cipro 250 mg sent to be taken b.i.d. for next 5 days Patient was notified Problem List - Dizziness, likely vertigo - Left earache - cystitis acute with hematuria Patient Instructions - patient is allergic to blue dyes and meclizine has blue dye so it was not sent patient was notified - Avoid rapid head movements to prevent triggering dizziness. - Stay hydrated and rest for a few days to recover. - take antibiotic sent for urinary tract infection. - Contact the physician if there is no improvement or if symptoms worsen. Orders: Orders AMB Urinalysis Automated Today Z13.9 - Encounter for screening, unspecified Medications: New ciprofloxacin HCl (Cipro) 250 mg PO BID 10 tabs 0RF
--- OUTSIDE RECORDS SUMMARY | 2024-05-21 10:00 | XMS_ITS ---
Author Organization [facility] Address [address] [place] [id number] Care Team Providers Care [employer] Teacher Name Role Phone Douglas OWENS, [facility] Provider John Diane [phone] REASON FOR VISIT can she discontinue Famotidine Medications Medication SIG (Take, Route, Fr equency, Duration) Notes Start Date End Date Status Famotidine 20 MG 2 Oral Once a day at bedtime for 90 days Active Encounters Encounter Location Date Provider Diagnosis [facility] [address] [place] [id number] 02/06/2023 John Amaya Plan Of Treatment Medication Medication Name Sig Start Date Stop Date Notes Famotidine 20 MG 2 Oral Once a day at bedtime for 90 days Progress Notes * ABRIL TOUSSAINT ADOB:[birth year] (82 yo F)Acc No.[id number]:02/06/2023 Patient:?ABRIL TOUSSAINT :1940???Age:82 Y???Sex:Female Address:[address] [place] [id number] * Refills? Refill Famotidine Tablet, 20 MG, Oral, 180, 2, Once a day at bedtime, 90 days, Refills=3 Subjective: * Chief Complaints: * ???can she discontinue Famot idine * Medical History:? * Surgical History:? * Hospitalization/Major Diagno stic Procedure:? * Medications:? Objective: Assessment: Plan: * Treatment: * Procedure Codes:? * true * Date:? Generated for Steffen oshea/Gabriella/eTransmitting on:?05/21/2024 10:00 AM EDT
--- OUTSIDE RECORDS SUMMARY | 2024-05-21 10:00 | XMS_ITS ---
Author Organization [facility] Address [address] [place] [address] Care Team Providers Care Automotive Light Mechanic Name Role Phone Douglas OWENS, [facility] Primary [facility] Provider John Diane [phone] Allergies Allergen (clinical drug ingredient) Drug/Non Drug Allergy documented on EMR Reaction Allergy Type Onset Date Status simvastatin Zocor Unknown Drug Allergy Activ e Lisinopril Unknown Drug Allergy Active Keflex Unknown Drug Allergy Active Indigo Almo Unknown Drug Allergy Ac tive codeine Codeine Sulfate Unknown Drug Allergy A ctive cephalexin Cephalexin Unknown Drug Allergy Activ e blue dye (uncoded) Unknown Allergy A ctive REASON FOR VISIT Patient presents today for dysphagia Medications Medication SIG (Take, Route, Frequency, Duration) Notes Start Date End Date Status Tylenol PRN Active Famotidine 20 MG 2 Oral Once a day at bedtime for 90 days Active Aspir-81 81mg Active dexAMETHasone 0.5 MG/5ML 10 mL-swish and spit-keep in mouth for 3-5 minutes, and then do not eat, drink, or rinse mouth for 30 minutes afterwards Orally every 6 hrs as needed for mouth ulcers for 30 day(s) 03/04/2022 Active dexAMETHasone 0.5 MG/5ML 10 ml Orally Sw ira&Spit Q 6 hrs--keep medicine in mouth for 3-5 min., and do not rinse mouth, eat, or drink for 30 minutes afterwards 12/10/2019 Active Procrit 0 Injection Active Calcium-Vitamin D3 250-125 MG-UNIT TAKE 1 TABLET BY MOUTH TWICE A DAY Oral for 90 Active Claritin 10 MG 1 tablet Orally Once a day Active amLODIPine-Atorvastatin 5-10 MG 1 tablet Orally Once a day for 30 day(s) Active Vital Signs Temperature 97.3 degrees Fahrenheit 05/31/19 24 Blood pressure systolic 000 mm Hg 05/31/19 24 Blood pressure diastolic 00 mm Hg 024 Height 61 in 05/31/2023 Weight 90 lbs 05/31/2023 BMI 17.00 kg/m2 05/31/2023 Encounters Encounter Location Date Provider Diagnosis [facility] [address] [place] [address] 05/31/2023 John Amaya Pharyngoesophageal dysphagia R13.14 Assessments Encounter Date Diagnosis (ICD Code) Assessment Notes Treatment Notes Treatment Clinical Notes Section Notes 05/31/2023 Pharyngoesophageal dysphagia (ICD-10 - R13.14) Continue the 2 20mg Famotidine every evening. Call me if the swallowing becomes a problem again. Overall, Xenia appears to be doing well in regard to her eating and swallowing as compared to prior to the endoscopy and dilation. It sounds like she has definitely had some clinical improvement in regard to her eating and swallowing. At this point she is quite pleased and content with how she is doing. Therefore, I advised her that I would hold off on repeating the endoscopy and doing any further dilation of the upper esophageal sphincter. However, I did advise her that she needs to call me if things worsen again at which time we could then repeat the endoscopy and balloon dilation if need be. I did advise to continue the 40 mg of famotidine every evening. Her history of diarrhea seems to be remaining stable with the symptomatic treatment of the Imodium once or twice a day. I don't think she needs any more specific treatment for the previously diagnosed microscopic colitis at this time as long as things remain stable. I advised her to certainly let me know if that worsens for her. If things remain stable I advised Xenia to see me on a p.r.n. basis. Xenia was comfortable with this plan. Thank you again for allowing me to participate in Xenia's care. I shall continue to keep you advised of her progress. Plan Of Treatment Treatment Notes Assessment Notes Pharyngoesophageal dysphagia Continue th e 2 20mg Famotidine every evening. Call me if the swallowing becomes a problem again. Next Appt Details Follow Up: prn, Reason: Progress Notes * ABRIL TOUSSAINT ADOB:[birth year] (83 yo F)Acc No.[id number]:05/31/2023 Progress Notes Patient:ABRIL CALL Provider:?John Amaya MD :1940???Age:82 Y???Sex:Female D ate:05/31/2023 Address:[address] [place], [place] [id number] Pcp:Regina Cole MD Subjective: * Chief Complaints: * ???Patient presents today fo r dysphagia * HPI: ???incontinence:? I saw Xenia in followup today in regard to her previous dysphagia and cricopharyngeal achalasia, as well as her history of intermittent diarrhea. ?I last saw Xenia in January of 2023, at which time she underwent an upper endoscopy for evaluation of her ongoing dysphagia and cricopharyngeal achalasia as seen on a barium swallow. 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 This did yield good results judging endoscopically and she reports that things have been much better symptomatically since that procedure. She reports that she is eating much more comfortably although she still eats slowly and small amounts. However in general, compared to how things were before The endoscopy she reports that things are much better and her eating is much easier. She is able to eat solid food and take pills much easier. She denies any choking or coughing with her meals. She denies any significant heartburn, nausea, no vomiting. She has been using 2 of her 20 mg famotidine every evening. ?She reports that her bowel movements are fairly regular although she does have occasional diarrhea. She takes one Imodium every morning on a regular basis and will Take another Imodium later in the day if need be with good relief. She denies any hematochezia nor melena. She denies any abdominal pain nor jaundice. Her weight has been stable at 90 pounds since her last visit which was 92 pounds. ?Her baseline anemia remains stable on her weekly Procrit injections. Her most recent hemoglobin on May 17 was 10.0. * ROS:?General/Constitutional:?Change in appetite?denies.?Chills?denies.?Fatigue?denies.?Ophthalmologic:?Patient denies? Negative..?ENT:?Patient denies?Mouth ulcers.?Respiratory:?Patient denies?No coughing/hemoptysis..?Cardiovascular:?Patient denies? No chest pain/orthopnea..?Gastrointestinal:?Comments?See HPI for details.?Genitourinary:?Patient denies?No dysuria/hematuria. No incontinence.?Musculoskeletal:?Patient denies? No specific arthralgias/myalgias..?Skin:?Patient denies?No rash/pruritus..?Neurologic:?Patient denies? No headaches/seizures..?Psychiatric:?Patient denies?Negative..? * Medical History:? * Surgical History:?Lumpectomy for breast cancer in 2004 Hysterectomy Appendectomy Vaginal prolapse surgery with Dr. Perry 08/18/201109/2020 Fractured left femur * Hospitalization/Major Diagno stic Procedure:?No Hospitalization History. * Family History:?Father: dece ased.?Mother: , diagnosed with HTN (hypertension), Diabetes.? No known family hx of colorectal cancer nor IBD. * Social History:?Tobacco Use:?Tobacco Use/Smoking?Are you a: nonsmoker.?Drugs/Alcohol:?Alcohol Screen?Points: 0, Interpretation: Negative.?Miscellaneous:?Marital status: . Occupation: Retired. ???She does not smoke or use any significant amounts of alcohol. * Medications:?TakingamLODIPin e-Atorvastatin 5-10 MG Tablet 1 tablet Orally Once a dayClaritin 10 MG Tablet 1 tablet Orally Once a dayProcrit 0 Solution Injection Calcium-Vitamin D3 250-125 MG-UNIT Tablet TAKE 1 TABLET BY MOUTH TWICE A DAY Oral Tylenol , Notes: PRNdexAMETHasone 0.5 MG/5ML Elixir 10 ml Orally Swish&Spit Q 6 hrs--keep medicine in mouth for 3-5 min., and do not rinse mouth, eat, or drink for 30 minutes afterwardsdexAMETHasone 0.5 MG/5ML Elixir 10 mL-swish and spit-keep in mouth for 3-5 minutes, and then do not eat, drink, or rinse mouth for 30 minutes afterwards Orally every 6 hrs as needed for mouth ulcersAspir-81 81mg Famotidine 20 MG Tablet 2 Oral Once a day at bedtimeMedication List reviewed and reconciled with the patientTaking amLODIPine-Atorvastatin 5-10 MG Tablet 1 tablet Orally Once a dayTaking Claritin 10 MG Tablet 1 tablet Orally Once a dayTaking Procrit 0 Solution Injection Taking Calcium-Vitamin D3 250-125 MG-UNIT Tablet TAKE 1 TABLET BY MOUTH TWICE A DAY Oral Taking Tylenol , Notes: PRNTaking dexAMETHasone 0.5 MG/5ML Elixir 10 ml Orally Swish&Spit Q 6 hrs--keep medicine in mouth for 3-5 min., and do not rinse mouth, eat, or drink for 30 minutes afterwardsTaking dexAMETHasone 0.5 MG/5ML Elixir 10 mL-swish and spit-keep in mouth for 3-5 minutes, and then do not eat, drink, or rinse mouth for 30 minutes afterwards Orally every 6 hrs as needed for mouth ulcersTaking Aspir-81 81mg Taking Famotidine 20 MG Tablet 2 Oral Once a day at bedtimeMedication List reviewed and reconciled with the patient * Allergies:?LisinoprilCodeine Sulfateblue dyeCephalexinIndigo CarmineKeflexZocoryes[Allergies Verified] Objective: * Vitals:?Wt: 90 lbs, Ht: 61 i n, BMI:17.00 Index, BP: 000/00 mm Hg, Temp: 97.3. * Examination: ???General Examination: ?GENERAL APPEARANCE:?pleasant, thin, alert female in no acute distress.?EYES:?sclera non-icteric.?ORAL CAVITY:?mucosa moist.?NECK/THYROID:?no cervical lymphadenopathy, neck supple.?SKIN:?nonjaundiced, no spider angiomata..?HEART:?S1, S2 normal.?LUNGS:?clear to auscultation bilaterally.?ABDOMEN:?normal bowel sounds, no guarding or rigidity, no hepatosplenomegaly, no masses palpable, soft, nontender, nondistended..?EXTREMITIES:?no edema.?NEUROLOGIC:?alert and oriented.? Assessment: * Assessment: 1.?Pharyngoesophageal dyspha sheila - R13.14 (Primary)? Overall, Xenia appears to b e doing well in regard to her eating and swallowing as compared to prior to the endoscopy and dilation. It sounds like she has definitely had some clinical improvement in regard to her eating and swallowing. At this point she is quite pleased and content with how she is doing. Therefore, I advised her that I would hold off on repeating the endoscopy and doing any further dilation of the upper esophageal sphincter. However, I did advise her that she needs to call me if things worsen again at which time we could then repeat the endoscopy and balloon dilation if need be. I did advise to continue the 40 mg of famotidine every evening. Her history of diarrhea seems to be remaining stable with the symptomatic treatment of the Imodium once or twice a day. I don't think she needs any more specific treatment for the previously diagnosed microscopic colitis at this time as long as things remain stable. I advised her to certainly let me know if that worsens for her. If things remain stable I advised Xenia to see me on a p.r.n. basis. Xenia was comfortable with this plan. Thank you again for allowing me to participate in Xenia's care. I shall continue to keep you advised of her progress. Plan: * Treatment: * Procedure Codes:?1036F TOBAC CO NON-UCXHP2571 BP SCR NOT PRFRM REC REASON NOS * Preventive Medicine:? ??Urinary Incontinence:?Urinary Incontinence?Assessment:?Absent,?Plan of care documented:?No, reason not specified.? * Follow Up:?prn * * Sign off status: Completed true * Provider:?John Amaya MD Date:? 024 Generated for Steffen oshea/Gabriella/eTransmitting on:?05/21/2024 10:00 AM EDT History and Physical Notes * HPI (History of Present Illness) Category Sub-Category Detail Notes Category Not es incontinence I saw Xenia in followup today in regard to her previous dysphagia and cricopharyngeal achalasia, as well as her history of intermittent diarrhea. I last saw Xenia in January of 2023, at which time she underwent an upper endoscopy for evaluation of her ongoing dysphagia and cricopharyngeal achalasia as seen on a barium swallow. 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 This did yield good results judging endoscopically and she reports that things have been much better symptomatically since that procedure. She reports that she is eating much more comfortably although she still eats slowly and small amounts. However in general, compared to how things were before The endoscopy she reports that things are much better and her eating is much easier. She is able to eat solid food and take pills much easier. She denies any choking or coughing with her meals. She denies any significant heartburn, nausea, no vomiting. She has been using 2 of her 20 mg famotidine every evening. She reports that her bowel movements are fairly regular although she does have occasional diarrhea. She takes one Imodium every morning on a regular basis and will Take another Imodium later in the day if need be with good relief. She denies any hematochezia nor melena. She denies any abdominal pain nor jaundice. Her weight has been stable at 90 pounds since her last visit which was 92 pounds. Her baseline anemia remains stable on her weekly Procrit injections. Her most recent hemoglobin on May 17 was 10.0. Examination Category Sub-Category Detail Notes Category Not es General Examination GENERAL APPEARANCE: pleasant , thin, alert female in no acute distress EYES: sclera non-icteric NECK/THYROID: no cervical lymphade nopathy, neck supple HEART: S1, S2 normal LUNGS: clear to auscultatio n bilaterally ABDOMEN: normal bowel sounds, no guarding or rigidity, no hepatosplenomegaly, no masses palpable, soft, nontender, nondistended. NEUROLOGIC: alert and oriented SKIN: nonjaundiced, no spi patrick angiomata. EXTREMITIES: no edema ORAL CAVITY: mucosa moist
--- OUTSIDE RECORDS SUMMARY | 2024-05-21 10:00 | XMS_ITS ---
Author Organization [facility] on Care Team Providers Care Sequins Slinger Name Role Phone Roula Camacho Unavailable Unavailable Maria Luz Wilson Unavailable Unavailable Hue Vazquez Unavailable Unavailable Marianela Zaragoza Unavailable Unavailable Allergies and adverse reactions Code CodeSystem Substance Reaction Severity StartDate Concern Status Tylenol with codeine Unknown 09/17/2020 active 37843 RXNORM Lisinopril Unknown 09/17/2020 active Indigo [place] Unknown 09/17/2020 active 2231 RXNORM Cephalexin Unknown 09/17/2020 active Care Team Name Role Address Phone Organization Dates Roula Robert Doug PCP [address] [place] [address], [address], [place] (Office): : [facility] 09/17/2020 - 10/10/2020 Maria Luz Wilson Attending Physician [address] [place], [address], [place] (Office): [facility] 09/17/2020 - 10/10/2020 Hue Vazquez Attending Physician [address] [facility] [place], [address], [place] (Office): [facility] 09/17/2020 - 10/10/2020 Marianela Zaragoza Attending Physician [address], [place], [address], [place] (Office): : [facility] 09/17/2020 - 10/10/2020 Immunizations Immunization Status Vaccine Details Vaccine Code CodeSystem Eduar e Notes SARS-COV-2 (COVID-19) completed SARS-COV-2 (COVID-19) vaccine, mRNA, spike protein, LNP, preservative free, 30 mcg/0.3mL dose Mfg: Dolosys Step 1 of Multi-step with next step required 208 CVX created date: 09/21/2020 administered date: 06/06/2020 Mental Status Section Date Assessment Total Score Description 10/10/2020 BIMS 14 cognitively int act CAM 0 No delirium ind icated PHQ-9 00 09/24/2020 BIMS 15 cognitively int act CAM 0 No delirium ind icated PHQ-9 06 mild depression Problems Problem # Description Date of onset Resolved Date Code CodeSystem Concern Status 1 ANEMIA, UNSPECIFIED [address] active 2 DISPLACED INTERTROCHANTERIC FRACTURE OF LEFT FEMUR, SUBSEQUENT ENCOUNTER FOR CLOSED FRACTURE WITH ROUTINE HEALING [address] active 3 ENCOUNTER FOR OTHER ORTHOPEDIC AFTERCARE [address] active 4 ESSENTIAL (PRIMARY) HYPERTENSION [address] active 5 HYPERLIPIDEMIA, UNSPECIFIED [address] active 6 MICROSCOPIC COLITIS, UNSPECIFIED [address] active Reason for Referral No Reasons for Referral Entered Social History Social History Observation Description Start Date End Date Code Code System Current Smoking Status Tobacco smoking consumption unknown 916718825 SNOMED CT Sex Assigned At Female 1940 [address]-8 [facility] Vital Signs Code Code System Vitals Name Values and Units Timing Information 06390-8 LOINC Pain Level Value=0.0 10/10/2020 9279-1 LOINC Respiratory Rate Value=18.0 Units=/m in 10/09/2020 8462-4 LOINC Blood Pressure-Diastolic Value=58 Un its=mmHg 10/09/2020 8480-6 LOINC Blood Pressure-Systolic Nicon=419 Un its=mmHg 10/09/2020 8310-5 [facility] Body Temperature Value=98.6 Units=?? F 10/09/2020 8867-4 [facility] Heart rate Value=79.0 Units=/min 10983-0 [facility] O2 % BldC Oximetry Ftelt=913.0 Units =% 10/09/2020 08540-2 [facility] Weight Value=86.0 Units=Lbs 09/11 8302-2 [facility] Height Value=60.0 Units=Inches 09/18/2020
--- OUTSIDE RECORDS SUMMARY | 2024-05-21 10:01 | XMS_ITS ---
Author Organization [facility] Address [address] [place] [address] Care Team Providers Care Z Os Mainframe Systems Programmer Name Role Phone Douglas OWENS, [facility] Provider John Diane [phone] REASON FOR VISIT abnormal barium swallow,pharyngoesophageal dysphagia Problems Problem Type SNOMED Code ICD Code Onset Dates Problem Status W/U Status Risk Notes Problem Achalasia (28502757) Achalasia (K22.0) Active confirmed Problem Dysphagia (75817331) Dysphagia (R13.10) Active confirmed Encounters Encounter Location Date Provider Diagnosis [facility] Outpatient [address] [place], [place] [id number] 01/27/2023 John Amaya Hiatal hernia K44. 9 ; Achalasia K22.0 ; Dysphagia R13.10 and Abnormal barium swallow R93.3 Assessments Encounter Date Diagnosis (ICD Code) Assessment Notes Treatment Notes Treatment Clinical Notes Section Notes 01/27/2023 Hiatal hernia (ICD-10 - K44.9) 01/27/2023 Achalasia (ICD-10 - K22.0) 01/27/2023 Dysphagia (ICD-10 - R13.10) 01/27/2023 Abnormal barium swallow (ICD-10 - R93.3) Plan Of Treatment No Information Progress Notes * NORBERTABRIL Robert ADOB:[birth year] (83 yo F)Acc No.[id number]:01/27/2023 EGD/MAC Patient:?ABRIL TOUSSAINT A Provider:?John Amaya MD :1940???Age:82 Y???Sex:Female D ate:01/27/2023 Address:[address] [place] [address], [facility] Pcp:Regina Cole MD Subjective: * Chief Complaints: * ???1. Abnormal barium swallo w,pharyngoesophageal dysphagia. * Medical History:? Objective: * Vitals:? Assessment: * Assessment: 1.?Hiatal hernia - K44.9 (Pr imary)???2.?Achalasia - K22.0???3.?Dysphagia - R13.10???4.?Abnormal barium swallow - R93.3??? Plan: * Treatment: * Procedure Codes:?02698 ESOPH ENDOSCOPY, DILATION * * The named appointment provid er may or may not be the originator of this progress note, and it is not deemed complete until electronically signed by the appointment provider. Sign off status: Pending * Provider:?John Amaya MD Date:? 023 Generated for Steffen oshea/Gabriella/eTkyesmitting on:?05/21/2024 10:00 AM EDT
--- OUTSIDE RECORDS SUMMARY | 2024-05-21 10:01 | XMS_ITS | Patient Health Record ---
Author Organization [facility] Address [address] [place] [address] Care Team Providers Care Head Miller Name Role Phone Douglas OWENS, [facility] Primary Care Provider John Diane [phone] Allergies Allergen (clinical drug ingredient) Drug/Non Drug Allergy documented on EMR Reaction Allergy Type Onset Date Status simvastatin Zocor Unknown Drug Allergy Activ e Lisinopril Unknown Drug Allergy Active Keflex Unknown Drug Allergy Active Indigo [place] Unknown Drug Allergy Ac tive codeine Codeine Sulfate Unknown Drug Allergy A ctive cephalexin Cephalexin Unknown Drug Allergy Activ e blue dye (uncoded) Unknown Allergy A ctive Reason For Referral No Information Medications Medication SIG (Take, Route, Frequency, Duration) Notes Start Date End Date Status dexAMETHasone 0.5 MG/5ML SWISH AND SPIT WITH 10 ML EVERY 6 HOURS NEEDED FOR MOUTH ULCERS FOR 30 DAYS. KEEP IN MOUTH FOR 3 TO 5 MINUTES AND THEN DO NOT EAT, DRINK, OR RINSE MOUTH FOR 30 MINUTES AFTERWARDS. for 30 Active Procrit 0 Injection Active Tylenol PRN Active Calcium-Vitamin D3 250-125 MG-UNIT TAKE 1 TABLET BY MOUTH TWICE A DAY Oral for 90 Active Famotidine 20 MG TAKE 2 TABLETS BY [facility] EVERY DAY AT BEDTIME for 90 Active Aspir-81 81mg Active Claritin 10 MG 1 tablet Orally Once a day Active amLODIPine-Atorvastatin 5-10 MG 1 tablet Orally Once a day for 30 day(s) Active Immunizations Vaccine Route Administration Date Status Comme nts Flu vaccine no Preserv 3 and > Unknown 11/20/2013 Admin istered Influenza Unknown 11/11/2018 Administered Influenza Unknown 12/18/2019 Administered Influenza Unknown 12/30/2020 Administered Influenza Unknown 01/03/2023 Administered Problems Problem Type SNOMED Code ICD Code Onset Dates Problem Status W/U Status Risk Notes Problem 81638701 Weight loss (R63.4) Active confirmed Problem Dysphagia (56946336) Dysphagia (R13.10) Active confirmed Problem 64032004 Other iron defic iency anemia (D50.8) Active confirmed Problem Achalasia (03141435) Achalasia (K22.0) Active confirmed Problem 89442454 Pharyngoesophage al dysphagia (R13.14) Active confirmed Problem 658065627 Abnormal barium swallow (R93.3) Active confirmed Problem 137527226 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 Problem 67961688 Mouth ulcers (K12.1) Active confirmed Vital Signs Temperature 97.3 degrees Fahrenheit 05/31/2023 Blood pressure diastolic 00 mm Hg 05/31/2023 Height 61 in 05/31/2023 Blood pressure systolic 000 mm Hg 05/31/2023 Weight 90 lbs 05/31/2023 BMI 17.00 kg/m2 05/31/2023 Encounters Encounter Location Date Provider Diagnosis [facility] [address] [place] [address] 05/31/2023 John Amaya Pharyngoesophageal dysphagia R13.14 Assessments [...] advised of her progress. Plan Of Treatment Pending Test Test Name Order Date CRP 12/10/2019 VITAMIN B12 AND FOLATE 12/22/2010 STOOL WBC 06/20/2019 ENDOMYSIAL IGA 12/22/2010 TRANSGLUTAMINASE AB IGA 12/22/2010 TRANSGLUTAMINASE AB IGG 12/22/2010 GIARDIA AG, STOOL EIA 06/20/2019 OVA & PARASITES (O&P) 06/20/2019 ROUTINE CULTURE 06/20/2019 XR BARIUM SWALLOW-ESOPHAGUS 11/25/2022 C DIFFICILE RFLX PCR 06/20/2019 Future Test Test Name Order Date UPPER GI ENDOSCOPY 10/30/2013 UPPER GI ENDOSCOPY [place] DILATION OF ESOPH 12/29/2022 Insurance Providers Payer Name Payer Address Payer Phone Subscriber Number Group Number Insured Name Patient Relationship to Insured Coverage Start Date Coverage End Date MEDICARE OF [place] [address] [place] [address] [id number] ABRIL TOUSSAINT Self - patient is the insured [employer] ATT[employer] CLAIMS [address] [place] [address] [id number] ABRIL TOUSSAINT Self - patient is the insured Medical (General) History Medical History History ICD Code EGD/Flex sig 06/14/2007--Dx of microscop ic colitis Microscopic colitis--diagnos ed in 2007-has done well on Asacol--did not do well on Delzicol Hypertension Hyperlipidemia NIDDM History of breast cancer, treated with l umpectomy in 2004 with XRT Acute hepatitis with jaundic e of unclear etiology in 2004, but with eventual spontaneous resolution and normalization of her liver studies Denies history of KS, stroke, lung disea se, nor kidney disease Neg colonoscopy in 2005 except diverticu losis and internal hemorrhoids Neg EGD and Colonoscopy in for eval. of anemia--bx neg for celiac disease Iron def anemia with Heme + stools--neg GI workups as above --has been on oral iron--received IV iron 09/[address] Cohen--had a SB video capsule 10/23/[address] Garcia--revealed some coffee grounds material in stomach-? focal gastritis-and ? 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 except for a small n onbleeding gastric AVM and small HH ERCP with sphincterotomy for CBD stones in 07/2017 Mouth ulcers 10/2019--respond ed to an oral steroid solution; she was also found to have a low zinc level Cricopharyngeal achalasia wi th associated dysphagia. She underwent an upper endoscopy with dilation of the upper esophageal sphincter in January of 2023. The upper esophageal sphincter was dilated from an 8 mm up to a 12 mm balloon with good effect. Surgical History Surgery Date(Month/Year) Lumpectomy for breast cancer in 2004 Hysterectomy Appendectomy Vaginal prolapse surgery with Dr. Islas erg 08/18/201109/2020 Fractured left femur
== END 2024-05-21 09:46 | disposition home or self-care (01) ==
LOC: HO.HMCC 09:02
PROVIDERS: PCP Internal Medicine; Visit Provider Internal Medicine
DX: R42 Dizziness and giddiness (principal); N30.01 Acute cystitis with hematuria; Z13.9 Encounter for screening, unspecified

== ENCOUNTER 2024-05-21 09:01 | Outpatient (REF) | payer MEDICARE, SELFPAY ==
[2024-05-21 14:51] LABS: Appearance Urine Turbid; Color Urine Dark Yellow; Glucose Urine UA Negative (Negative); Leukocyte Esterase Urine Large (3+) (Negative); Nitrite Urine Positive (Negative); Specific Gravity - Urine 1.015 (1.005-1.025); UMIC TRIGGER UACC YES; Urine Blood Small (1+) (Negative); Urine Ketones Negative (Negative); Urine Protein 30 (1+) mg/dL (Neg-Trace)
[2024-05-21 14:58] LABS: Bacteria Urine 4+ (None Seen); Hyaline Casts Urine 0-2 /LPF (0-2); RBC Urine 0-2 /HPF (0-2); UACC Culture Trigger YES; WBC Urine >50 /HPF (0-5)
--- OUTSIDE RECORDS SUMMARY | 2024-05-21 16:53 | XMS_ITS ---
Author Organization [facility] on Care Team Providers Care Senior Core Java Developer Name Role Phone Roula Camacho Unavailable Unavailable Maria Luz Wilson Unavailable Unavailable Hue Vazquez Unavailable Unavailable Marianela Zaragoza Unavailable Unavailable Allergies and adverse reactions Code CodeSystem Substance Reaction Severity StartDate Concern Status Tylenol with codeine Unknown 09/17/2020 active 74907 RXNORM Lisinopril Unknown 09/17/2020 active Indigo [place] Unknown 09/17/2020 active 2231 RXNORM Cephalexin Unknown 09/17/2020 active Care Team Name Role Address Phone Organization Dates Roula Robert Doug PCP [address] [place] [address], [address], [place] (Office): : [facility] 09/17/2020 - 10/10/2020 Maria Luz Wilson Attending Physician [address] [place], [address], [place] (Office): [facility] 09/17/2020 - 10/10/2020 Hue Vazquez Attending Physician [address] [facility] [place], [address], [place] (Office): [facility] 09/17/2020 - 10/10/2020 Marianela Zaragoza Attending Physician [address], [place], [address], [place] (Office): : [facility] 09/17/2020 - 10/10/2020 Immunizations Immunization Status Vaccine Details Vaccine Code CodeSystem Eduar e Notes SARS-COV-2 (COVID-19) completed SARS-COV-2 (COVID-19) vaccine, mRNA, spike protein, LNP, preservative free, 30 mcg/0.3mL dose Mfg: [employer]verus Step 1 of Multi-step with next step [...] CodeSystem Concern Status 1 ANEMIA, UNSPECIFIED [address] active 2 DISPLACED INTERTROCHANTERIC FRACTURE OF LEFT FEMUR, SUBSEQUENT ENCOUNTER FOR CLOSED FRACTURE WITH ROUTINE HEALING [address] active 3 ENCOUNTER FOR OTHER ORTHOPEDIC AFTERCARE [address] active 4 ESSENTIAL (PRIMARY) HYPERTENSION [address] active 5 HYPERLIPIDEMIA, UNSPECIFIED [address] active 6 MICROSCOPIC COLITIS, UNSPECIFIED [address] active Reason for Referral No Reasons for Referral Entered Social History Social History Observation Description Start Date End Date Code Code System Current Smoking Status Tobacco smoking consumption unknown 109028682 SNOMED CT Sex Assigned At Female 1940 [address]-6 [facility] Vital Signs Code Code System Vitals Name Values and Units Timing Information 51432-6 LOINC Pain Level Value=0.0 10/10/2020 9279-1 LOINC Respiratory Rate Value=18.0 Units=/m in 10/09/2020 8462-4 LOINC Blood Pressure-Diastolic Value=58 Un its=mmHg 10/09/2020 8480-6 LOINC Blood Pressure-Systolic Colhd=245 Un its=mmHg 10/09/2020 8310-5 [facility] Body Temperature Value=98.6 Units=?? F 10/09/2020 8867-4 [facility] Heart rate Value=79.0 Units=/min 33909-9 [facility] O2 % BldC Oximetry Krqww=317.0 Units =% 10/09/2020 94801-5 [facility] Weight Value=86.0 Units=Lbs 09/11 8302-2 [facility] Height Value=60.0 Units=Inches 09/18/2020
== END 2024-05-21 09:02 | disposition home or self-care (01) ==
LOC: HO.CHCLNP 09:01
PROVIDERS: PCP Internal Medicine; Visit Provider Internal Medicine
DX: R42 Dizziness and giddiness (principal); N30.01 Acute cystitis with hematuria
CPT/HCPCS: 81001; 81003; 87086; 87088; 87186; 99212

== ENCOUNTER 2024-07-01 10:30 | Outpatient (REF) | payer MEDICARE, SELFPAY ==
[2024-07-01 13:23] LABS: Appearance Urine Clear; Color Urine Yellow; Glucose Urine UA Negative (Negative); Leukocyte Esterase Urine Large (3+) (Negative); Nitrite Urine Positive (Negative); PH 6.5 (5.0-9.0); Specific Gravity - Urine <= 1.005 (1.005-1.025); UMIC TRIGGER UACC YES; Urine Blood Trace (Negative); Urine Ketones Negative (Negative); Urine Protein Negative (Neg-Trace)
[2024-07-01 13:30] LABS: Bacteria Urine 3+ (None Seen); RBC Urine 0-2 /HPF (0-2); UACC Culture Trigger YES; WBC Urine >50 /HPF (0-5)
== END 2024-07-01 10:31 | disposition home or self-care (01) ==
LOC: HO.HMGCLDS 10:30
PROVIDERS: PCP Internal Medicine; Visit Provider Internal Medicine
DX: R30.9 Painful micturition, unspecified (principal)
CPT/HCPCS: 81001; 87086; 87088; 87186

== ENCOUNTER 2024-07-10 15:02 | Outpatient (AMB) | payer MEDICARE, SELFPAY ==
[2024-07-10 15:21] VITALS: BP 136/60; PULSE 68; RESP 18; TEMP 36.7; O2SAT 100; BMI 16.8
--- NOTE | 2024-07-10 15:21 | AM.OFFWIN_ITS ---
Intake Vital Signs 07/10/24 15:21 Height 5 ft 1 in Weight 89 lb BMI 16.8 BP 136/60 Blood Pressure Location Lt brachial Position Sitting Respiration 18 Pulse 68 Pulse Source Pulse Oximeter Temp 98.1 F Temp Source Oral Pulse Oximetry (%) 100 Oxygen Delivery Method Room Air Intake Visit Reasons: EP-rt lower back pain Intake Note: Pt is here today for a walk in visit. Pt c/o R lower back pain and sometimes radiates to her L side. Patient Tobacco Use Status: Never used Tobacco Allergies codeine [CODEINE] Allergy (Intermediate, Verified 07/10/24 15:24) MOOD CHANGE, dizziness indigotindisulfonic acid [Indigo [place]] Allergy (Intermediate, Verified 07/10/24 15:24) increased blood pressure cephalexin [From KEFLEX] Allergy (Unknown, Verified 07/10/24 15:24) pt cannot remember reaction blue dye [BLUE DYE] Adverse Reaction (Intermediate, Verified 07/10/24 15:24) ELEVATED BLOOD PRESSURE lisinopril [LISINOPRIL] Adverse Reaction (Intermediate, Verified 07/10/24 15:24) cough, dry cough simvastatin [From ZOCOR] Adverse Reaction (Unknown, Verified 07/10/24 15:24) pt can't remember reaction Medication List - Last Reconciled 07/10/24 by Regina Cole MD amlodipine 5 mg PO DAILY aspirin (Adult Low Dose Aspirin) 81 mg PO DAILY calcium carbonate (Calcium 600) 600 mg PO BID cholecalciferol (vitamin D3) 25 mcg PO DAILY famotidine 20 mg PO BEDTIME metoprolol succinate ER 12.5 mg (1/2 x 25 mg) PO DAILY 90 days HPI EP-rt lower back pain HPI Details History - The patient is an 84-year-old female p resenting with a urinary tract infection. - She reports having experienced a urina ry tract infection last month, which has persisted and recurred, making it the current visit's primary concern. - The patient confirms continued symptom s associated with the infection, including occasional nausea and chills, indicating ongoing discomfort despite prior treatment. - She mentions the condition has not imp roved and persistent symptoms are evident. Problem List - Urinary tract infection - Back pain Patient Instructions - Take the prescribed antibiotic for 10 days. Levaquin 250 mg - Return to the lab for a urine test aft er finishing the antibiotics. - Report any worsening symptoms immediat marcy. Review of Systems - General: No fever - Neurological: No headaches no dizziness - Ear nose throat: No sore throat no hearing difficulty no ear pain - Cardiovascular: No syncope, no chest pain, no palpitations - Gastrointestinal: No nausea vomiting or diarrhea Physical Exam - General: No acute distress - HEENT: No acute findings - Neck: Supple - Respiratory system: Able to talk in f ull sentences, no audible wheeze - Gastrointestinal: suprapubic discomfor t - Extremities: No new findings - MOBILE DEVICE DEVELOPER: Alert awake oriented x3 motor se nsory intact - Skin: Normal turgor PFSH Medical History Cavitary lesion of lung History of breast cancer History of breast cancer Cholecystectomy planned Diarrhea Surgical History History of hip surgery History of mammogram History of excision of mass History of esophagogastroduodenoscopy (EGD) History of colonoscopy History of lumpectomy of right breast History of hysterectomy Family History Father CHF (congestive heart failure) Mother Diabetes mellitus Brother No problems noted. Sister No problems noted. Daughter No problems noted. Son No problems noted. Son No problems noted. Social History Household Members: None Housing: House Are you a primary manager critical care unit to a significant other at home: No Do you presently have visiting nurse or other home services: No Alcohol intake: never Patient Tobacco Use Status: Never used Tobacco e-Cigarette/Vaping Use: Never Used Advance Directives Date on File: 12/16/19 service: No Current occupational status: retired Cognitive needs: No Hearing needs: No Vision needs: Yes Physical Exam Vital Signs: Last Vital Signs Temp 98.1 F 07/10/24 15:21 Pulse 68 07/10/24 15:21 Resp 18 07/10/24 15:21 BP 136/60 07/10/24 15:21 Pulse Ox 100 07/10/24 15:21 Oxygen Delivery Method Room Air 07/10/24 15:21 BMI result Body Mass Index 16.8 Results AMB Urinalysis, Automated UA Leukoctes 125 Henry/uL Last Edit by AIDEN Machuca on 07/10/24 15:27 UA Nitrite Negative Last Edit by Leonila Cloud [facility] on 07/10/24 15:27 UA Urobilinogen 0.2 mg/dL Last Edit by Leonila Cloud Robert on 07/10/24 15: 27 UA Protein 0 mg/dL Last Edit by Leonila Cloud [facility] on 07/10/24 15:27 UA pH 6.0 Last Edit by Leonila Cloud [facility] on 07/10/24 15:27 UA Blood 0 Kwame/uL Last Edit by Leonila Cloud [facility] on 07/10/24 15:27 UA Specific [place] 1.010 Last Edit by Leonila Cloud Robert on 07/10/24 15 :27 UA Ketone Negative Last Edit by Leonila Cloud Robert on 07/10/24 15:27 UA Bilirubin 0 mg/dL Last Edit by Leonila Cloud [facility] on 07/10/24 15:27 UA Glucose 0 mg/dL Last Edit by Leonila Cloud [facility] on 07/10/24 15:27 Results Reviewed Results Reviewed: Laboratory Last Values Urine pH (Auto) 6.0 07/10/24 15:26 Specific [place] (Auto) 1.010 07/10/24 15:26 Urine Protein (Auto) 0 mg/dL 07/10/24 15:26 Glucose (UA)(Auto) 0 mg/dL 07/10/24 15:26 Urine Ketones (Auto) Negative 07/10/24 15:26 Urine Blood (Auto) 0 Kwame/uL 07/10/24 15:26 Urine Nitrite (Auto) Negative 07/10/24 15:26 Urine Bilirubin (Auto) 0 mg/dL 07/10/24 15:26 Urine Urobilinogen (Auto) 0.2 mg/dL 07/10/24 15:26 Leukocyte Esterase (Auto) 125 Henry/uL 07/10/24 15:26 Assessment & Plan Assessment & Plan (1) Recurrent cystitis: Code(s): N30.90 - Cystitis, unspecified without hematuria Plan History - The patient is an 84-year-old female presenting with a urinary tract infection. - She reports having experienced a urinary tract infection last month, which has persisted and recurred, making it the current visit's primary concern. - The patient confirms continued symptoms associated with the infection, including occasional nausea and chills, indicating ongoing discomfort despite prior treatment. - She mentions the condition has not improved and persistent symptoms are evident. Problem List - Urinary tract infection - Back pain Patient Instructions - Take the prescribed antibiotic for 10 days. Levaquin 250 mg - Return to the lab for a urine test after finishing the antibiotics. - Report any worsening symptoms immediately. Orders: Orders UA CC w/rflx Micro + Cult Today Regina Cole MD N30.90 - Cystitis, unspecified without hematuria AMB Urinalysis Automated Today Jen Crowell PA-C Z13.9 - Encounter for screening, unspecified Medications: New levofloxacin 250 mg PO DAILY 10 days 10 tabs 0RF Regina Cole MD Coding Level of Care Code Est Pt Level 3 (87039) Diagnoses Recurrent cystitis N30.90
== END 2024-07-10 15:43 | disposition home or self-care (01) ==
PROVIDERS: PCP Internal Medicine; Visit Provider Internal Medicine
DX: Z13.9 Encounter for screening, unspecified (principal); N30.90 Cystitis, unspecified without hematuria

== ENCOUNTER 2024-07-10 15:02 | Outpatient (REF) | payer MEDICARE, SELFPAY ==
[2024-07-11 11:04] LABS: Appearance Urine Clear; Color Urine Yellow; Glucose Urine UA Negative (Negative); Leukocyte Esterase Urine Large (3+) (Negative); Nitrite Urine Negative (Negative); PH 6.5 (5.0-9.0); UMIC TRIGGER UACC YES; Urine Blood Negative (Negative); Urine Ketones Negative (Negative); Urine Protein Trace mg/dL (Neg-Trace)
[2024-07-11 11:23] LABS: Bacteria Urine None Seen (None Seen); RBC Urine 0-2 /HPF (0-2); UACC Culture Trigger YES; WBC Urine 0-5 /HPF (0-5)
== END 2024-07-10 15:03 | disposition home or self-care (01) ==
LOC: HO.LAB 15:02
PROVIDERS: PCP Internal Medicine; Visit Provider Internal Medicine
DX: N30.90 Cystitis, unspecified without hematuria (principal)
CPT/HCPCS: 81001; 81003; 87086; 99212

== ENCOUNTER 2024-07-15 10:51 | Emergency (ER) | payer MEDICARE, SELFPAY ==
--- NOTE | ~2024-07-15 | XR_ITS ---
EXAMINATION: XR CHEST CLINICAL INFORMATION: cp COMPARISON: 11/21/2022 CT chest 03/27/2023. TECHNIQUE: AP view of the chest was obtained. FINDINGS: The cardiac, hilar, and mediastinal contours are normal. Aortic mural calcifications. Coronary calcifications and mitral annular calcifications present. Mildly elevated right hemidiaphragm. The lungs are diffusely hyperaerated, however clear bilaterally. No pneumothorax or effusion. No focal osseous or soft tissue abnormality. There are cholecystectomy clips present. There are degenerative changes in the spine. XR/XR chest 1V IMPRESSION: COPD without definite active superimposed disease. Electronically signed by: Erasmo Ahn MD 07/15/2024 12:41 PM EDT
--- NOTE | ~2024-07-15 | CT_ITS ---
EXAMINATION: CT ABDOMEN PELVIS WITHOUT IV CONTRAST HISTORY: left flank pain COMPARISON: Comparison is made with the prior examination dated 03/27/2023. TECHNIQUE: CT scan of the abdomen and pelvis was performed without contrast using standard departmental protocol. Coronal and sagittal reformatted images were generated and reviewed. Oral contrast material was not administered per department protocol. This CT exam was performed with one or more of the following dose reduction techniques: automated exposure control, adjustment of the mA and/or kV according to patient size, use of iterative reconstruction technique. DLP: 270 mGy-cm FINDINGS: LOWER CHEST: Tiny nodules at the right lung base are unchanged. The visualized left lung base near. There is no pleural effusion. CARDIOVASCULATURE: The heart is normal in size. There is no pericardial effusion. LIVER: Findings of prior left hepatectomy are again noted. The liver has an unremarkable unenhanced appearance. GALLBLADDER / BILE DUCTS: The gallbladder is surgically absent. Again seen is gas within biliary radicles consistent with prior sphincterotomy. SPLEEN: The spleen remains enlarged. PANCREAS: The pancreas has an unremarkable unenhanced appearance. ADRENAL GLANDS: Unremarkable. KIDNEYS/RETROPERITONEUM: There are multiple 2-3 mm nonobstructing right renal calculi. There are punctate nonobstructing left renal calculi. There is no hydronephrosis or hydroureter. No ureteral calculi are seen. There is a 3.8 cm cyst at the upper pole of the right kidney and a 3.9 cm cyst at the lower pole. LYMPH NODES: No retroperitoneal lymphadenopathy is identified in the abdomen or pelvis. VASCULATURE: The abdominal aorta demonstrates atherosclerotic calcification, but is normal in caliber. MESENTERY/PERITONEUM: No free fluid. No masses. There is no free intraperitoneal gas. STOMACH: The stomach is collapsed, limiting evaluation. SMALL BOWEL: The small bowel is normal in caliber. COLON: There is diffuse mild wall thickening of the colon with lack of haustral markings. The appearance is similar to the prior study given the lack of injected IV contrast material. APPENDIX: The appendix is not seen, however no inflammatory changes are seen adjacent to the cecum. URINARY BLADDER/PELVIC ORGANS: The urinary bladder is collapsed. The patient is status post hysterectomy. BONES / SOFT TISSUES: There is internal fixation of the left hip with a compression screw and intramedullary kalani. There is scoliosis and degenerative disc disease of the spine. There is a moderate compression deformity of T12 without change. CT/CT abdomen pelvis wo IV con IMPRESSION: 1. Bilateral nephrolithiasis as described. No hydronephrosis or ureteral obstruction. 2. Splenomegaly. 3. Diffuse mild wall thickening of the colon with lack of haustral markings. Findings are compatible with colitis, which may be infectious, inflammatory, or ischemic in nature. The appearance is not significantly changed from the prior study, however. Electronically signed by: John Villeda MD 07/15/2024 12:51 PM EDT
[2024-07-15 11:03] VITALS: BP 146/84; PULSE 70; RESP 14; TEMP 36.2; O2SAT 100; BMI 16.8
--- NOTE | 2024-07-15 11:06 | ED_ITS ---
HPI - Female Genitourinary General Chief complaint: Urogenital-Female Stated complaint: UTI Time Seen by Provider: 07/15/24 11:23 History of Present Illness HPI Narrative: Patient is an 84-year-old female with a history of left-sided flank pain ongoing for the last week or so. Patient symptoms got worse over the last 4 days. At 1st was on a antibiotics which she did not know the name of. Then was switched over 4 days ago to Levaquin. There is no fever no chills. There is mild nausea from time to time. There is no pain on urination. There is no change in bowel movement. There is no bowel urinary incontinence. Patient is from home. No history of abdominal surgery in the past. Related Data Home Medications ?Medication ?Instructions ?Recorded ?Confirmed aspirin 81 mg tablet,delayed 81 mg PO DAILY 01/20/21 07/10/24 release (Adult Low Dose Aspirin) Previous Rx's ?Medication ?Instructions ?Recorded famotidine 20 mg tablet 20 mg PO BEDTIME #90 tabs 02/07/23 amlodipine 5 mg tablet 5 mg PO DAILY #90 tabs 12/27/23 metoprolol succinate 25 mg 12.5 mg (1/2 x 25 mg) PO DAILY 90 01/02/24 tablet,extended release 24 hr days #45 tabs calcium carbonate (Calcium 600) 600 mg PO BID #180 tabs 04/05/24 cholecalciferol (vitamin D3) 25 25 mcg PO DAILY #90 caps 04/05/24 mcg (1,000 unit) capsule levofloxacin 250 mg tablet 250 mg PO DAILY 10 days #10 tabs 07/10/24 Allergies Allergy/AdvReac Type Severity Reaction Status Date / Time codeine [CODEINE] Allergy Intermediate MOOD Verified 07/15/24 11:05 CHANGE, dizziness indigotindisulfonic acid Allergy Intermediate increased Verified 07/15/24 11:05 [Indigo Arjay] blood pressure cephalexin [From KEFLEX] Allergy Unknown pt cannot Verified 07/15/24 11:05 remember reaction blue dye [BLUE DYE] AdvReac Intermediate ELEVATED Verified 07/15/24 11:05 BLOOD PRESSURE lisinopril [LISINOPRIL] AdvReac Intermediate cough, dry Verified 07/15/24 11:05 cough simvastatin [From ZOCOR] AdvReac Unknown pt can't Verified 07/15/24 11:05 remember reaction Review of Systems 2 Review of Systems: Positive left flank pain Yes all other systems are reviewed and are negative [facility] Past Medical History Attestation statement: The following information was validated with the patient. Medical History Cavitary lesion of lung History of breast cancer History of breast cancer Cholecystectomy planned Diarrhea Surgical History History of hip surgery History of mammogram History of excision of mass History of esophagogastroduodenoscopy (EGD) History of colonoscopy History of lumpectomy of right breast History of hysterectomy Family History Family History Father CHF (congestive heart failure) Mother Diabetes mellitus Brother No problems noted. Sister No problems noted. Daughter No problems noted. Son No problems noted. Son No problems noted. Social History Social History Household Members: None Housing: House Are you a primary respiratory care practitioner to a significant other at home: No Do you presently have visiting nurse or other home services: No Alcohol intake: never Patient Tobacco Use Status: Never used Tobacco e-Cigarette/Vaping Use: Never Used Advance Directives: Yes Advance Directives on File: Yes Advance Directives Date on File: 12/16/19 service: No Current occupational status: retired Cognitive needs: No Hearing needs: No Vision needs: Yes Physical Exam 2 Vital Signs: Vital Signs: Last Vital Signs Temp 97.9 F 07/15/24 15:08 Pulse 72 07/15/24 15:08 Resp 16 07/15/24 15:45 BP 156/55 H 07/15/24 15:08 Pulse Ox 100 07/15/24 15:08 O2 Del Method Room Air 07/15/24 15:08 BMI result Body Mass Index 16.8 Appearance: Alert. Oriented X3. No acute distress. Eyes: Pupils equal, round and reactive to light. ENT: Pharynx normal. Neck: Normal inspection. Neck supple. No lymph nodes noted. No crepitus CVS: Normal heart rate and rhythm. Pulses normal. Normal S1 and S2 Respiratory: No respiratory distress. Breath sounds normal. No Wheezing. No rales Abdomen: Soft and nontender. No rigidity. No distention. good BS x4. Mild CVA tenderness on the left side. Skin: Skin warm and dry. Normal skin color. Normal skin turgor. Extremities: No lower extremity edema. Neurovascular intact to all extremities. No Lacerations. No Rash Neuro: Oriented X 3. No motor deficit. No sensory deficit. Moving all extermities. No slurred speech Course Course Course Narrative: RME: 84 yold female presents to the ED For 4 days of flank pain. patient presently on antibiotics for UTI with no improvememnt. labs and UA ordered. positive for left flank CVA tenderness. Medications Administered Discontinued Medications Generic Name Dose Route Start Last Admin Trade Name Freq PRN Reason Stop Dose Admin Hydromorphone HCl 0.5 mg 07/15/24 15:35 07/15/24 15:45 Hydromorphone Hcl 0.5 Mg/0.5 Ml Syringe IVPUSH 07/15/24 15:36 0.5 mg ONCE ONE Administration Protocol Sodium Chloride 500 mls @ 999 mls/hr 07/15/24 12:00 07/15/24 13:13 Ns IV 07/15/24 12:30 999 mls/hr .Q31M [id number] Administration Morphine Sulfate 2 mg 07/15/24 11:54 07/15/24 13:13 Morphine Sulfate 2 Mg/Ml Cartridge IVPUSH 07/15/24 11:55 2 mg ONCE ONE Administration Protocol Ondansetron HCl 4 mg 07/15/24 11:55 07/15/24 13:13 Ondansetron Hcl 4 Mg/2 Ml Vial IVPUSH 07/15/24 11:56 4 mg ONCE ONE Administration Medical Decision Making Medical Decision Making [facility] Narrative: Patient is urine showed a moderate amount of leukocyte esterase but white count is normal nitrate is normal there is no bacteria seen. Tabiona this is partially treated urine. Patient is already started on Levaquin. Patient's white count is normal. Electrolytes shows a normal creatinine. CT scan of the abdomen showed no gross obstruction no abscess no perforation or kidney stone question colitis. Currently in stable condition symptom improved. Will discharge patient home Differential Diagnosis Differential Diagnoses: The differential diagnosis associated with the presentation includes Admission/Observation Consideration of admission/observation: Escalation of care including admission/observation considered Lab Data [facility] Lab Attestation statement: I reviewed the patient's lab results. 07/15/24 13:20 07/15/24 15:07 Labs: Lab Results 07/15/24 07/15/24 07/15/24 Range/Units 13:20 15:07 15:07 WBC 8.6 (4.8-10.8) X10*3/uL RBC 4.88 (4.20-5.50) X10*6/uL Hgb 10.7 L (12.0-16.0) g/dl Hct 36.9 L (37.0-47.0) % MCV 75.6 L (80.0-98.0) fL MCH 21.9 L (27.0-33.0) pg MCHC 29.0 L (31.0-35.0) g/dl RDW 18.3 H (11.0-16.0) % Plt Count 235 (160-400) X10*3/uL MPV 9.0 L (9.4-12.3) fL Immature Gran % (Auto) 1.0 H (0.0-0.4) % Neut % (Auto) 85.1 H (45-73) % Lymph % (Auto) 7.3 L (20-40) % Grainger % (Auto) 5.8 (2-11) % Eos % (Auto) 0.2 (0-4) % Baso % (Auto) 0.6 (0-2) % Lymph # (Auto) 0.6 L (1.2-4.9) X10*3/uL Grainger # (Auto) 0.5 (0.1-1.2) X10*3/uL Eos # (Auto) 0.0 (0.0-0.4) X10*3/uL Baso # (Auto) 0.1 (0.0-0.2) X10*3/uL Abs Immat Gran (auto) 0.09 H (0.00-0.03) X10*3/uL Absolute Neuts (auto) 7.3 (2.0-8.3) x10*3/uL Absolute Nucleated RBC 0.000 (0.0-0.012) X10*3/uL Nucleated RBC % (auto) 0.0 (0.0-0.2) /100WBC Sodium 132 L Cancelled (135-145) mmol/L Potassium 3.1 L D (3.3-5.1) mmol/L Chloride (96-108) mmol/L Carbon Dioxide (22-29) mmol/L Anion Gap (12-20) BUN (9-16) mg/dL Creatinine (0.5-1.4) mg/dL Estim Creat Clear Calc Estimated GFR Random Glucose (60-115) mg/dL Calcium (8.4-10.2) mg/dL Total Bilirubin (0.0-1.0) mg/dL Direct Bilirubin (0.0-0.5) mg/dL AST (5-31) U/L ALT (0-31) U/L Alkaline Phosphatase (39-117) U/L Total Protein (6.5-8.0) g/dL Albumin (3.5-5.0) g/dL Lipase (8-78) U/L Urine Color Urine Appearance Urine pH (5.0-9.0) Ur Specific [place] (1.005-1.025) Urine Protein (Neg-Trace) mg/dL Urine Glucose (UA) (Negative) mg/dL Urine Ketones (Negative) mg/dL Urine Blood (Negative) Urine Nitrite (Negative) Ur Leukocyte Esterase (Negative) Urine RBC (0-2) /HPF Urine WBC (0-5) /HPF Ur Squamous Epith Cells (0-2) /HPF Urine Bacteria (None Seen) Hyaline Casts (0-2) /LPF 07/15/24 07/15/24 07/15/24 Range/Units 15:07 15:07 15:07 WBC (4.8-10.8) X10*3/uL RBC (4.20-5.50) X10*6/uL Hgb (12.0-16.0) g/dl Hct (37.0-47.0) % MCV (80.0-98.0) fL MCH (27.0-33.0) pg MCHC (31.0-35.0) g/dl RDW (11.0-16.0) % Plt Count (160-400) X10*3/uL MPV (9.4-12.3) fL Immature Gran % (Auto) (0.0-0.4) % Neut % (Auto) (45-73) % Lymph % (Auto) (20-40) % Grainger % (Auto) (2-11) % Eos % (Auto) (0-4) % Baso % (Auto) (0-2) % Lymph # (Auto) (1.2-4.9) X10*3/uL Grainger # (Auto) (0.1-1.2) X10*3/uL Eos # (Auto) (0.0-0.4) X10*3/uL Baso # (Auto) (0.0-0.2) X10*3/uL Abs Immat Gran (auto) (0.00-0.03) X10*3/uL Absolute Neuts (auto) (2.0-8.3) x10*3/uL Absolute Nucleated RBC (0.0-0.012) X10*3/uL Nucleated RBC % (auto) (0.0-0.2) /100WBC Sodium (135-145) mmol/L Potassium Cancelled (3.3-5.1) mmol/L Chloride 99 Cancelled (96-108) mmol/L Carbon Dioxide 24 Cancelled (22-29) mmol/L Anion Gap 12 (12-20) BUN (9-16) mg/dL Creatinine (0.5-1.4) mg/dL Estim Creat Clear Calc Estimated GFR Random Glucose (60-115) mg/dL Calcium (8.4-10.2) mg/dL Total Bilirubin (0.0-1.0) mg/dL Direct Bilirubin (0.0-0.5) mg/dL AST (5-31) U/L ALT (0-31) U/L Alkaline Phosphatase (39-117) U/L Total Protein (6.5-8.0) g/dL Albumin (3.5-5.0) g/dL Lipase (8-78) U/L Urine Color Urine Appearance Urine pH (5.0-9.0) Ur Specific [place] (1.005-1.025) Urine Protein (Neg-Trace) mg/dL Urine Glucose (UA) (Negative) mg/dL Urine Ketones (Negative) mg/dL Urine Blood (Negative) Urine Nitrite (Negative) Ur Leukocyte Esterase (Negative) Urine RBC (0-2) /HPF Urine WBC (0-5) /HPF Ur Squamous Epith Cells (0-2) /HPF Urine Bacteria (None Seen) Hyaline Casts (0-2) /LPF 07/15/24 07/15/24 07/15/24 Range/Units 15:07 15:07 15:07 WBC (4.8-10.8) X10*3/uL RBC (4.20-5.50) X10*6/uL Hgb (12.0-16.0) g/dl Hct (37.0-47.0) % MCV (80.0-98.0) fL MCH (27.0-33.0) pg MCHC (31.0-35.0) g/dl RDW (11.0-16.0) % Plt Count (160-400) X10*3/uL MPV (9.4-12.3) fL Immature Gran % (Auto) (0.0-0.4) % Neut % (Auto) (45-73) % Lymph % (Auto) (20-40) % Grainger % (Auto) (2-11) % Eos % (Auto) (0-4) % Baso % (Auto) (0-2) % Lymph # (Auto) (1.2-4.9) X10*3/uL [place]inger # (Auto) (0.1-1.2) X10*3/uL Eos # (Auto) (0.0-0.4) X10*3/uL Baso # (Auto) (0.0-0.2) X10*3/uL Abs Immat Gran (auto) (0.00-0.03) X10*3/uL Absolute Neuts (auto) (2.0-8.3) x10*3/uL Absolute Nucleated RBC (0.0-0.012) X10*3/uL Nucleated RBC % (auto) (0.0-0.2) /100WBC Sodium (135-145) mmol/L Potassium (3.3-5.1) mmol/L Chloride (96-108) mmol/L Carbon Dioxide (22-29) mmol/L Anion Gap Cancelled (12-20) BUN 12 Cancelled (9-16) mg/dL Creatinine 0.74 Cancelled (0.5-1.4) mg/dL Estim Creat Clear Calc 35.4 Estimated GFR Random Glucose (60-115) mg/dL Calcium (8.4-10.2) mg/dL Total Bilirubin (0.0-1.0) mg/dL Direct Bilirubin (0.0-0.5) mg/dL AST (5-31) U/L ALT (0-31) U/L Alkaline Phosphatase (39-117) U/L Total Protein (6.5-8.0) g/dL Albumin (3.5-5.0) g/dL Lipase (8-78) U/L Urine Color Urine Appearance Urine pH (5.0-9.0) Ur Specific [place] (1.005-1.025) Urine Protein (Neg-Trace) mg/dL Urine Glucose (UA) (Negative) mg/dL Urine Ketones (Negative) mg/dL Urine Blood (Negative) Urine Nitrite (Negative) Ur Leukocyte Esterase (Negative) Urine RBC (0-2) /HPF Urine WBC (0-5) /HPF Ur Squamous Epith Cells (0-2) /HPF Urine Bacteria (None Seen) Hyaline Casts (0-2) /LPF 07/15/24 07/15/24 07/15/24 Range/Units 15:07 15:07 15:07 WBC (4.8-10.8) X10*3/uL RBC (4.20-5.50) X10*6/uL Hgb (12.0-16.0) g/dl Hct (37.0-47.0) % MCV (80.0-98.0) fL MCH (27.0-33.0) pg MCHC (31.0-35.0) g/dl RDW (11.0-16.0) % Plt Count (160-400) X10*3/uL MPV (9.4-12.3) fL Immature Gran % (Auto) (0.0-0.4) % Neut % (Auto) (45-73) % Lymph % (Auto) (20-40) % [place] % (Auto) (2-11) % Eos % (Auto) (0-4) % Baso % (Auto) (0-2) % Lymph # (Auto) (1.2-4.9) X10*3/uL [place] # (Auto) (0.1-1.2) X10*3/uL Eos # (Auto) (0.0-0.4) X10*3/uL Baso # (Auto) (0.0-0.2) X10*3/uL Abs Immat Gran (auto) (0.00-0.03) X10*3/uL Absolute Neuts (auto) (2.0-8.3) x10*3/uL Absolute Nucleated RBC (0.0-0.012) X10*3/uL Nucleated RBC % (auto) (0.0-0.2) /100WBC Sodium (135-145) mmol/L Potassium (3.3-5.1) mmol/L Chloride (96-108) mmol/L Carbon Dioxide (22-29) mmol/L Anion Gap (12-20) BUN (9-16) mg/dL Creatinine (0.5-1.4) mg/dL Estim Creat Clear Calc Cancelled Estimated GFR > 60 Cancelled Random Glucose 101 Cancelled (60-115) mg/dL Calcium 8.3 L (8.4-10.2) mg/dL Total Bilirubin (0.0-1.0) mg/dL Direct Bilirubin (0.0-0.5) mg/dL AST (5-31) U/L ALT (0-31) U/L Alkaline Phosphatase (39-117) U/L Total Protein (6.5-8.0) g/dL Albumin (3.5-5.0) g/dL Lipase (8-78) U/L Urine Color Urine Appearance Urine pH (5.0-9.0) Ur Specific [place] (1.005-1.025) Urine Protein (Neg-Trace) mg/dL Urine Glucose (UA) (Negative) mg/dL Urine Ketones (Negative) mg/dL Urine Blood (Negative) Urine Nitrite (Negative) Ur Leukocyte Esterase (Negative) Urine RBC (0-2) /HPF Urine WBC (0-5) /HPF Ur Squamous Epith Cells (0-2) /HPF Urine Bacteria (None Seen) Hyaline Casts (0-2) /LPF 07/15/24 Range/Units 15:07 WBC (4.8-10.8) X10*3/uL RBC (4.20-5.50) X10*6/uL Hgb (12.0-16.0) g/dl Hct (37.0-47.0) % MCV (80.0-98.0) fL MCH (27.0-33.0) pg MCHC (31.0-35.0) g/dl RDW (11.0-16.0) % Plt Count (160-400) X10*3/uL MPV (9.4-12.3) fL Immature Gran % (Auto) (0.0-0.4) % Neut % (Auto) (45-73) % Lymph % (Auto) (20-40) % [place] % (Auto) (2-11) % Eos % (Auto) (0-4) % Baso % (Auto) (0-2) % Lymph # (Auto) (1.2-4.9) X10*3/uL [place] # (Auto) (0.1-1.2) X10*3/uL Eos # (Auto) (0.0-0.4) X10*3/uL Baso # (Auto) (0.0-0.2) X10*3/uL Abs Immat Gran (auto) (0.00-0.03) X10*3/uL Absolute Neuts (auto) (2.0-8.3) x10*3/uL Absolute Nucleated RBC (0.0-0.012) X10*3/uL Nucleated RBC % (auto) (0.0-0.2) /100WBC Sodium (135-145) mmol/L Potassium (3.3-5.1) mmol/L Chloride (96-108) mmol/L Carbon Dioxide (22-29) mmol/L Anion Gap (12-20) BUN (9-16) mg/dL Creatinine (0.5-1.4) mg/dL Estim Creat Clear Calc Estimated GFR Random Glucose (60-115) mg/dL Calcium Cancelled (8.4-10.2) mg/dL Total Bilirubin 0.6 (0.0-1.0) mg/dL Direct Bilirubin 0.3 (0.0-0.5) mg/dL AST 15 (5-31) U/L ALT < 6 (0-31) U/L Alkaline Phosphatase 73 (39-117) U/L Total Protein 6.9 (6.5-8.0) g/dL Albumin 3.4 L (3.5-5.0) g/dL Lipase 10 (8-78) U/L Urine Color Yellow Urine Appearance Clear Urine pH 7.0 (5.0-9.0) Ur Specific [place] 1.010 (1.005-1.025) Urine Protein Trace (Neg-Trace) mg/dL Urine Glucose (UA) Negative (Negative) mg/dL Urine Ketones Negative (Negative) mg/dL Urine Blood Trace H (Negative) Urine Nitrite Negative (Negative) Ur Leukocyte Esterase Moderate (2+) H (Negative) Urine RBC 0-2 (0-2) /HPF Urine WBC 0-5 (0-5) /HPF Ur Squamous Epith Cells 3-5 (0-2) /HPF Urine Bacteria None Seen (None Seen) Hyaline Casts 0-2 (0-2) /LPF Independent Interpretation I performed an independent interpretation of an: Plain X-Ray (Chest x-ray negative) and CT Scan (No obstruction no abscess no perforation) Radiology Impression Discussion of test interpretation with radiology: I have reviewed the radiologist's reading. Independent Historian Clinical information obtained from an independent historian. History obtained from or confirmed by: Other (Family) External Record Review External record reviewed: Inpatient record Social Determinants Patient?s care significantly limited by Social Determinants of Health including: Problems related to primary support group Discharge Plan Discharge Clinical Impression: Urinary tract infection Patient Disposition: Home, Self-Care Instructions: Urinary Tract Infection in Older Adults (ED) Prescriptions: No Action famotidine 20 mg tablet 20 mg PO BEDTIME Qty: 90 0RF amlodipine 5 mg tablet 5 mg PO DAILY Qty: 90 1RF metoprolol succinate 25 mg tablet extended release 24 hr 12.5 mg PO DAILY 90 Days Qty: 45 3RF calcium carbonate [Calcium 600] 600 mg calcium (1,500 mg) Tablet 600 mg PO BID Qty: 180 4RF cholecalciferol (vitamin D3) 25 mcg (1,000 unit) capsule 25 mcg PO DAILY Qty: 90 3RF aspirin [Adult Low Dose Aspirin] 81 mg tablet,delayed release (DR/EC) 81 mg PO DAILY levofloxacin 250 mg tablet 250 mg PO DAILY 10 Days Qty: 10 0RF Referrals: Regina Cole MD [Primary Care Provider] - 07/17/24 Interventions: Admission Worksheet (ED) Last Done: 07/15/24 12:58 Print Language: Croatian
[2024-07-15 13:13] VITALS: RESP 16
[2024-07-15] MEDS: 0.9 % Sodium Chloride 500 ML 999 ML IV (13:13)
[2024-07-15] MEDS: ondansetron HCL 4 MG/2 ML VIAL IVPUSH (13:13)
[2024-07-15] MEDS: Morphine Sulfate 2 MG/ML CARTRIDGE IVPUSH (13:13)
[2024-07-15 13:24] LABS: MANUAL DIFF FLAG NO
[2024-07-15 13:32] LABS: Basophils Absolute Auto 0.1 X10*3/uL (0.0-0.2); Basophils Percent Auto 0.6 % (0-2); Eosinophils Percent Auto 0.2 % (0-4); Hematocrit 36.9 % (37.0-47.0); Hemoglobin 10.7 g/dl (12.0-16.0); Imm Gran Abs Auto 0.09 X10*3/uL (0.00-0.03); Lymphocytes Absolute Auto 0.6 X10*3/uL (1.2-4.9); Lymphocytes Percent Auto 7.3 % (20-40); Mean Corpuscular Hemoglobin 21.9 pg (27.0-33.0); Mean Corpuscular Volume 75.6 fL (80.0-98.0); Monocytes Absolute Auto 0.5 X10*3/uL (0.1-1.2); Monocytes Percent Auto 5.8 % (2-11); Neutrophils Absolute Auto 7.3 x10*3/uL (2.0-8.3); Neutrophils Percent Auto 85.1 % (45-73); Platelet Count 235 X10*3/uL (160-400); Red Blood Count 4.88 X10*6/uL (4.20-5.50); Red Cell Distribution Width 18.3 % (11.0-16.0); White Blood Count 8.6 X10*3/uL (4.8-10.8)
[2024-07-15 15:08] VITALS: BP 156/55; PULSE 72; RESP 14; TEMP 36.6; O2SAT 100
[2024-07-15 15:16] LABS: Appearance Urine Clear; Color Urine Yellow; Glucose Urine UA Negative (Negative); Leukocyte Esterase Urine Moderate (2+) (Negative); Nitrite Urine Negative (Negative); UMIC TRIGGER UACC YES; Urine Blood Trace (Negative); Urine Ketones Negative (Negative); Urine Protein Trace mg/dL (Neg-Trace)
[2024-07-15 15:27] LABS: Bacteria Urine None Seen (None Seen); Hyaline Casts Urine 0-2 /LPF (0-2); RBC Urine 0-2 /HPF (0-2); UACC Culture Trigger YES; WBC Urine 0-5 /HPF (0-5)
[2024-07-15 15:40] LABS: Alanine Aminotransferase < 6 U/L (0-31); Albumin Level 3.4 g/dL (3.5-5.0); Anion Gap 12 (12-20); Aspartate Amino Transferase 15 U/L (5-31); Bilirubin Direct 0.3 mg/dL (0.0-0.5); Bilirubin Total 0.6 mg/dL (0.0-1.0); Blood Urea Nitrogen 12 mg/dL (9-16); Calcium 8.3 mg/dL (8.4-10.2); Carbon Dioxide 24 mmol/L (22-29); Chloride 99 mmol/L (96-108); Creatinine Clr Calc Pharmacy 35.4; Estimated Glomerular Filt Rate > 60; Glucose Random 101 mg/dL (60-115); Lipase 10 U/L (8-78); Potassium 3.1 mmol/L (3.3-5.1); Sodium 132 mmol/L (135-145); Total Protein 6.9 g/dL (6.5-8.0)
[2024-07-15 15:45] VITALS: RESP 16
[2024-07-15] MEDS: HYDROmorphone HCl 0.5 MG/0.5 ML SYRINGE IVPUSH (15:45)
[2024-07-15 16:07] LABS: Alkaline Phosphatase 73 U/L (39-117)
[2024-07-15 17:20] VITALS: BP 133/59; PULSE 75; RESP 16; TEMP 36.5; O2SAT 99
== END 2024-07-15 17:21 | disposition home or self-care (01) ==
PROVIDERS: Emergency Provider Emergency Medicine Emergency Medical Services; PCP Internal Medicine
DX: N39.0 Urinary tract infection, site not specified (principal); R10.9 Unspecified abdominal pain
CPT/HCPCS: 36415; 71045; 74176; 80048; 80076; 81001; 83690; 85025; 87086; 99285; J1171; J2270; J2405

== ENCOUNTER → 2024-07-15 11:54 | Outpatient (BNV) | payer MEDICARE, SELFPAY | PROVIDERS: Emergency Provider Emergency Medicine Emergency Medical Services; PCP Internal Medicine; Visit Provider Radiology Diagnostic Radiology | DX: N20.0 Calculus of kidney (principal); R16.1 Splenomegaly, not elsewhere classified; J44.9 Chronic obstructive pulmonary disease, unspecified | CPT/HCPCS: 71045; 74176 ==

== ENCOUNTER 2024-07-17 07:14 | Inpatient (IN) | payer MEDICARE, SELFPAY ==
[2024-07-17] VITALS (11 sets, daily range): BP systolic 130–149; BP diastolic 51–67; PULSE 75–83; RESP 14–20; TEMP 36.1–36.8; O2SAT 94–100; BMI 17.6; BMI 16.4
--- NOTE | ~2024-07-17 | XR_ITS ---
EXAMINATION: XR LUMBOSACRAL SPINE CLINICAL INFORMATION: back pain COMPARISON: November 08, 2022. TECHNIQUE: Three views of the lumbosacral spine. FINDINGS: Levoconvex rotoscoliosis apex at L3-4. Multilevel marginal osteophyte formation and endplate sclerosis decreased intervertebral disc height throughout the thoracolumbar spine more pronounced at L4-5. Superior compression deformity likely old representing 40% volume loss at T12. Superior old compression deformity representing 80% volume loss at T9. Osteopenia versus osteoporosis. No acute cortical disruption. No gross malalignment. Vascular calcifications. Vascular clips right upper quadrant abdomen. Metallic screws no fully included in the [id number] in the left femoral head neck region. XR/XR lumbar spine 2-3V IMPRESSION: Multilevel thoracolumbar spondylosis and levoconvex rotoscoliosis more conspicuous at L4-5. Old likely osteoporotic compression fracture deformities at T12 and T9. Atherosclerosis disease. Electronically signed by: Riaz Bateman MD 07/17/2024 08:36 AM EDT
--- NOTE | ~2024-07-17 | CT_ITS ---
EXAMINATION: CT ABDOMEN AND PELVIS WITH CONTRAST CLINICAL INFORMATION: Bilateral back pain, white count, UTI. COMPARISON: Noncontrast CT abdomen pelvis 07/15/2024, and postcontrast CT abdomen and pelvis 03/27/2023. TECHNIQUE: Multidetector volumetric images were obtained from the superior aspect of the liver through the pubic symphysis following administration 85 mL of Omnipaque 350 intravenous contrast. Sagittal and coronal reformatted images were obtained on the technologist's workstation. Oral contrast: No This CT examination was performed using dose optimization techniques as appropriate, variously including the following: *Automated exposure control *Adjustment of mA and/or kV according to patient size (this includes techniques or standardized protocols for targeted exams where dose is matched to indication/reason for exam; i.e. extremities or head) *Use of iterative reconstruction technique FINDINGS: LUNG BASES: The heart is normal in size. There are dense mitral annular calcifications, and extensive/heavy coronary calcifications. There is no pericardial effusion. There is mild elevation of the right hemidiaphragm. There are no effusions. The lung bases are otherwise clear. Small type I hiatus hernia suspected at the GE junction. LIVER, GALLBLADDER, AND BILIARY TREE: Liver demonstrates stable changes of left hepatectomy. The right lobe is normal in appearance. There is biliary gas present suggesting prior sphincterotomy. There has been a prior cholecystectomy. PANCREAS: Mild to moderate pancreatic atrophy. Mild prominence of the pancreatic duct. No discrete lesion seen. SPLEEN: Enlarged, with AP diameter of 12.8 cm, and craniocaudad dimension of 10.3 cm. There is a 9 mm cyst in the anterior aspect, unchanged from prior exams. There are subtle wedge-shaped foci of hypoattenuation in the anterior and peripheral inferior spleen, with subtle capsular retraction, consistent with splenic infarcts. These appear to be unchanged from 03/27/2023 CT exam. ADRENAL GLANDS: Unremarkable. KIDNEYS AND URETERS: RIGHT KIDNEY: There is a 4 mm nonobstructing calculus in the upper pole of the right kidney. There is an abutting 3 mm nonobstructing calculus in the midpole. There is an exophytic midpole cyst measuring 4.2 x 3.6 cm. There is no hydronephrosis, hydroureter, mass lesion, or striated nephrogram. No significant perirenal stranding. LEFT KIDNEY: There are tiny subcentimeter cysts present. There are no calculi, or masses. No hydronephrosis or hydroureter. No evidence of striation of the nephrogram. No significant perirenal stranding. BLADDER: Normal. There is evidence of pelvic floor weakness with bladder and rectal prolapse. GASTROINTESTINAL TRACT: The entire colon demonstrates wall thickening, mucosal enhancement, mild hyperemia, consistent with colitis. There is rectal involvement. There is thickening and inflammation of the most terminal ileum as well, leading into the ileocecal valve. Mild wall thickening of the stomach is noted although the stomach is somewhat decompressed. The duodenum appears grossly normal. The small bowel is otherwise normal in caliber and course, without additional region of inflammation. There are no CT features of appendicitis although the appendix is not well identified. ABDOMINAL WALL: No significant hernia is appreciated. LYMPH NODES: None enlarged by size criteria. VASCULAR: Severe atheromatous calcification of the aorta and iliac arteries with associated ectasia. No definite aneurysm identified. PELVIC VISCERA: There has been a hysterectomy. There is evidence of pelvic floor prolapse. There are no adnexal masses. OSSEOUS STRUCTURES: Scoliosis and advanced degenerative spondylosis of the imaged spine. Internal fixation of the left hip with a compression screw, an intramedullary kalani. Moderate compression deformity of T12 without change. CT/CT abdomen pelvis w IV con IMPRESSION: 1. Acute pancolitis, with rectal involvement. There is also involvement of the distal terminal ileum. This could be infectious and/or inflammatory. 2. Splenomegaly, with irregular splenic lesions in the lateral inferior spleen as described, essentially unchanged from 03/27/2023 and consistent with splenic infarcts. 3. Stable changes of left hepatectomy. Biliary gas present, likely from prior sphincterotomy. 4. Severe calcific atheromatous changes of the aorta and iliac arteries. No aneurysm. 5. Numerous additional ancillary findings as discussed in the body of the report. Electronically signed by: Erasmo Ahn MD 07/17/2024 10:05 AM EDT
[2024-07-17 07:52] LABS: Basophils Percent Auto 0.2 % (0-2); Eosinophils Percent Auto 0.1 % (0-4); Hematocrit 31.7 % (37.0-47.0); Hemoglobin 9.6 g/dl (12.0-16.0); Imm Gran Abs Auto 0.12 X10*3/uL (0.00-0.03); Imm Gran Pct Auto 0.7 % (0.0-0.4); Lymphocytes Absolute Auto 0.4 X10*3/uL (1.2-4.9); Lymphocytes Percent Auto 2.5 % (20-40); MANUAL DIFF FLAG SCAN; Mean Corpuscular HGB Conc 30.3 g/dl (31.0-35.0); Mean Corpuscular Hemoglobin 22.7 pg (27.0-33.0); Mean Corpuscular Volume 75.1 fL (80.0-98.0); Mean Platelet Volume 8.9 fL (9.4-12.3); Monocytes Absolute Auto 0.7 X10*3/uL (0.1-1.2); Monocytes Percent Auto 4.5 % (2-11); Neutrophils Absolute Auto 14.9 x10*3/uL (2.0-8.3); Platelet Count 228 X10*3/uL (160-400); Red Blood Count 4.22 X10*6/uL (4.20-5.50); Red Cell Distribution Width 18.6 % (11.0-16.0); SCAN SMEAR FLAG 1; White Blood Count 16.3 X10*3/uL (4.8-10.8)
[2024-07-17 08:05] LABS: Alanine Aminotransferase < 6 U/L (0-31); Albumin Level 3.2 g/dL (3.5-5.0); Alkaline Phosphatase 77 U/L (39-117); Anion Gap 13 (12-20); Aspartate Amino Transferase 27 U/L (5-31); Bilirubin Total 0.6 mg/dL (0.0-1.0); Blood Urea Nitrogen 12 mg/dL (9-16); Calcium 8.1 mg/dL (8.4-10.2); Carbon Dioxide 20 mmol/L (22-29); Chloride 100 mmol/L (96-108); Creatinine Clr Calc Pharmacy 35.2; Estimated Glomerular Filt Rate > 60; Glucose Random 85 mg/dL (60-115); Potassium 2.9 mmol/L (3.3-5.1); Sodium 130 mmol/L (135-145); Total Protein 6.6 g/dL (6.5-8.0)
--- NOTE | 2024-07-17 08:07 | ECG_ITS ---
Test Reason : hyperkalemia Blood Pressure : */* mmHG Vent. Rate : 75 BPM Atrial Rate : 75 BPM P-R Int : 150 ms QRS Dur : 82 ms QT Int : 410 ms P-R-T Axes : 18 -19 43 degrees QTcB Int : 457 ms Normal sinus rhythm Normal ECG When compared with ECG of 21-Nov-2022 11:05, Questionable change in QRS axis Referred By: Valery Pedroza Electronically Signed By: MARY ELLEN REYES
--- NOTE | 2024-07-17 08:15 | ED.GENADULT ---
HPI - General Adult General Chief complaint: Back Pain/Injury Stated complaint: LOW BACK PAIN X10D,CURRENT UTI PER EMS Time Seen by Provider: 07/17/24 08:06 Source: patient Mode of arrival: EMS Limitations: no limitations History of Present Illness ED Provider: VALERY PEDROZA PA-C HPI narrative: 84-year-old female with pmhx significant for anemia, osteoporosis, breast cancer, GERD, HLD, HTN presents to the ED via EMS for evaluation of low back pain x1.5 weeks. Patient was initially evaluated for symptoms on 07/11/2024. She was diagnosed with a UTI at that time and placed on levofloxacin. Four days later, she presented to our facility with worsening symptoms including left-sided flank pain and increased urinary frequency. She was discharged home with diagnosis of colitis and advised to continue levofloxacin. Reports worsening low back pain over the last 2 days. Reports pain to bilateral lower back, worse on the left. Reports resolution of urinary symptoms. Denies any fever or chills, dysuria or hematuria. Reports mild nausea at present without any vomiting. Admits to one episode of nonbloody diarrhea yesterday. She currently lives at home alone. Manages her own medications. Reports taking all medications as prescribed. Related Data Home Medications ?Medication ?Instructions ?Recorded ?Confirmed aspirin 81 mg tablet,delayed 81 mg PO DAILY 01/20/21 07/10/24 release (Adult Low Dose Aspirin) Previous Rx's ?Medication ?Instructions ?Recorded famotidine 20 mg tablet 20 mg PO BEDTIME #90 tabs 02/07/23 amlodipine 5 mg tablet 5 mg PO DAILY #90 tabs 12/27/23 metoprolol succinate 25 mg 12.5 mg (1/2 x 25 mg) PO DAILY 90 01/02/24 tablet,extended release 24 hr days #45 tabs calcium carbonate (Calcium 600) 600 mg PO BID #180 tabs 04/05/24 cholecalciferol (vitamin D3) 25 25 mcg PO DAILY #90 caps 04/05/24 mcg (1,000 unit) capsule levofloxacin 250 mg tablet 250 mg PO DAILY 10 days #10 tabs 07/10/24 Allergies Allergy/AdvReac Type Severity Reaction Status Date / Time codeine [CODEINE] Allergy Intermediate MOOD Verified 07/17/24 07:32 CHANGE, dizziness indigotindisulfonic acid Allergy Intermediate increased Verified 07/17/24 07:32 [[place]igo [place]] blood pressure cephalexin [From KEFLEX] Allergy Unknown pt cannot Verified 07/17/24 07:32 remember reaction blue dye [BLUE DYE] AdvReac Intermediate ELEVATED Verified 07/17/24 07:32 BLOOD PRESSURE lisinopril [LISINOPRIL] AdvReac Intermediate cough, dry Verified 07/17/24 07:32 cough simvastatin [From ZOCOR] AdvReac Unknown pt can't Verified 07/17/24 07:32 remember reaction Review of Systems Review of Systems: Yes all other systems are reviewed and are negative [facility] Past Medical History Attestation statement: The following information was validated with the patient. Source: old records reviewed and nursing notes reviewed Medical History Cavitary lesion of lung History of breast cancer History of breast cancer Cholecystectomy planned Diarrhea Surgical History History of hip surgery History of mammogram History of excision of mass History of esophagogastroduodenoscopy (EGD) History of colonoscopy History of lumpectomy of right breast History of hysterectomy Family History Family History Father CHF (congestive heart failure) Mother Diabetes mellitus Brother No problems noted. Sister No problems noted. Daughter No problems noted. Son No problems noted. Son No problems noted. Social History Social History Household Members: None Housing: House Are you a primary rn patient care to a significant other at home: No Do you presently have visiting nurse or other home services: No Alcohol intake: never Patient Tobacco Use Status: Never used Tobacco e-Cigarette/Vaping Use: Never Used Advance Directives: Yes Advance Directives on File: Yes Advance Directives Date on File: 12/16/19 Do you have a plan to hurt others: No Plan service: No Current occupational status: retired Cognitive needs: No Hearing needs: No Vision needs: Yes Physical Exam ED Vital Signs: Vital Signs - 24 hr 07/17/24 07:28 07/17/24 09:31 Temperature 97.8 F 97.9 F Pulse Rate 75 83 Respiratory Rate 16 16 Blood Pressure 130/53 L 148/55 H Pulse Oximetry 100 100 Oxygen Delivery Method Room Air Room Air BMI result Body Mass Index 17.6 vital signs stable, afebrile General: Well appearing, in no acute distress. Skin: Warm, dry, intact. No rashes or lesions. Head: Normocephalic, atraumatic. EENT: Hearing is intact b/l. Conjunctiva clear. PERRLA. EOM intact. Moist mucous membranes.? Neck: Supple without LAD Cardiac: Chest wall symmetric. RRR Lungs: Normal respiratory effort without accessory muscle use. CTA bilaterally Abdomen: Soft, non-tender, non-distended. No rebound tenderness or guarding. Positive BS x4. +b/l CVAT Back: No midline spinous or paraspinal tenderness. No step off deformity. Ext: Upper and lower extremities atraumatic, without tenderness, deformity, swelling or erythema Neuro: AOx3. Normal speech. CN 2-12 grossly intact. Strength 5/5 intact throughout. No saddle anesthesia. Sensation intact to light touch. NV intact distally. Ambulating with steady gait. Psych: Appropriate mood and affect. Responds appropriately to questions. Course Course Course Narrative: 1018 -- CBC showing leukocytosis to 16.3 with left shift. Microcytic anemia, chronic when compared to priors. Around baseline. Chemistry showing hyponatremia to 130. Hypokalemia to 2.9. Magnesium 1.6. No SHELLI. Liver function around baseline. Patient does not meet criteria for sepsis. > urinalysis pending. GI panel and C diff testing pending. > x-ray lumbar spine shows multilevel thoracolumbar spondylosis and levoconvex rotoscoliosis. Old osteoporotic compression fracture deformity at T12 and T9. > CT abdomen/pelvis shows acute galeano colitis with rectal involvement and involvement of distal terminal ileum. Splenomegaly with irregular splenic lesions unchanged from prior imaging. Stable changes of left hepatectomy. > given galeano colitis with white count despite outpatient treatment with p.o. antibiotics, patient meets criteria for admission. Patient agreeable to admission for continued IV antibiotic therapy. I reached out to hospitalist, Dr. Samuels who will place admission orders. > patient has cephalosporin allergy with unknown reaction. Unasyn and Flagyl ordered for broad-spectrum coverage. Magnesium and potassium repletion ordered. IV Tylenol for pain. Medications Administered Generic Name Dose Route Start Last Admin Trade Name Freq PRN Reason Stop Dose Admin Potassium Chloride 10 meq in 100 mls @ 100 mls/hr 07/17/24 08:30 07/17/24 08:39 Potassium Chloride/H20 IV 07/17/24 12:29 100 mls/hr Q1H [id number] Administration Discontinued Medications Generic Name Dose Route Start Last Admin Trade Name Freq PRN Reason Stop Dose Admin Magnesium Sulfate 2 gm in 50 mls @ 150 mls/hr 07/17/24 08:29 07/17/24 08:59 Magnesium Sulfate/H2o IV 07/17/24 08:48 Infused ONCE ONE Infusion Iohexol 85 ml 07/17/24 09:35 07/17/24 09:36 Iohexol 350 Mg/Ml 100 Ml Infus..Btl IV 07/17/24 09:36 85 ml ONCE ONE Administration Medical Decision Making Medical Decision Making [facility] Narrative: 84-year-old female with pmhx significant for anemia, osteoporosis, breast cancer, GERD, HLD, HTN presents to the ED via EMS for evaluation of low back pain x1.5 weeks. Hypertensive. Afebrile. She is well-appearing and in no acute distress. On exam, there is no midline spinous tenderness or step-off deformity. No paraspinal muscle tenderness to palpation. There is bilateral CVAT. Abdomen is soft, nondistended, nontender to palpation. No rebound or guarding. Active bowel sounds throughout. Differential diagnosis includes urinary tract infection, renal colic, nephrolithiasis, pyelonephritis, colitis, diverticulitis/diverticulosis, colonic abscess, C diff, gastroenteritis, anemia, electrolyte abnormality. Lower suspicion for acute abdomen including appendicitis or cholecystitis, pancreatitis. Unlikely bowel obstruction or viscus perforation. Unlikely ischemic bowel. I have also considered vertebral fracture, contusion, MSK sprain/strain. Unlikely cauda equina, epidural abscess, cord compression, Guillain-[place]. Plan for labs, urinalysis, EKG, CT a/p, C diff/GI panel Differential Diagnosis Differential Diagnoses: The differential diagnosis associated with the presentation includes As above Admission/Observation Consideration of admission/observation: Escalation of care including admission/observation considered Patient admitted for treatment of galeano colitis Consult Healthcare Provider Management of the patient was discussed with: Hospitalist (dr. samuels) Lab Data [facility] Lab Attestation statement: I reviewed the patient's lab results. As above 07/17/24 07:42 07/17/24 07:42 Labs: Lab Results 07/17/24 07/17/24 Range/Units 07:42 10:13 WBC 16.3 H (4.8-10.8) X10*3/uL RBC 4.22 (4.20-5.50) X10*6/uL Hgb 9.6 L (12.0-16.0) g/dl Hct 31.7 L (37.0-47.0) % MCV 75.1 L (80.0-98.0) fL MCH 22.7 L (27.0-33.0) pg MCHC 30.3 L (31.0-35.0) g/dl RDW 18.6 H (11.0-16.0) % Plt Count 228 (160-400) X10*3/uL MPV 8.9 L (9.4-12.3) fL Immature Gran % (Auto) 0.7 H (0.0-0.4) % Neut % (Auto) 92.0 H (45-73) % Lymph % (Auto) 2.5 L (20-40) % [place] % (Auto) 4.5 (2-11) % Eos % (Auto) 0.1 (0-4) % Baso % (Auto) 0.2 (0-2) % Lymph # (Auto) 0.4 L (1.2-4.9) X10*3/uL [place] # (Auto) 0.7 (0.1-1.2) X10*3/uL Eos # (Auto) 0.0 (0.0-0.4) X10*3/uL Baso # (Auto) 0.0 (0.0-0.2) X10*3/uL Abs Immat Gran (auto) 0.12 H (0.00-0.03) X10*3/uL Absolute Neuts (auto) 14.9 H (2.0-8.3) x10*3/uL Absolute Nucleated RBC 0.000 (0.0-0.012) X10*3/uL Nucleated RBC % (auto) 0.0 (0.0-0.2) /100WBC Smear Tech's Comments VERIFIED Sodium 130 L (135-145) mmol/L Potassium 2.9 L* (3.3-5.1) mmol/L Chloride 100 (96-108) mmol/L Carbon Dioxide 20 L (22-29) mmol/L Anion Gap 13 (12-20) BUN 12 (9-16) mg/dL Creatinine 0.78 (0.5-1.4) mg/dL Estim Creat Clear Calc 35.2 Estimated GFR > 60 Random Glucose 85 (60-115) mg/dL Calcium 8.1 L (8.4-10.2) mg/dL Magnesium 1.6 (1.6-2.6) mg/dL Total Bilirubin 0.6 (0.0-1.0) mg/dL AST 27 (5-31) U/L ALT < 6 (0-31) U/L Alkaline Phosphatase 77 (39-117) U/L Total Protein 6.6 (6.5-8.0) g/dL Albumin 3.2 L (3.5-5.0) g/dL Urine Color Yellow Urine Appearance Clear Urine pH 7.0 (5.0-9.0) Ur Specific [place] 1.015 (1.005-1.025) Urine Protein Negative (Neg-Trace) mg/dL Urine Glucose (UA) Negative (Negative) mg/dL Urine Ketones Negative (Negative) mg/dL Urine Blood Negative (Negative) Urine Nitrite Negative (Negative) Ur Leukocyte Esterase Negative (Negative) Independent Interpretation I performed an independent interpretation of an: Plain X-Ray Interpretation: X-ray lumbar spine without acute fracture CT abdomen/pelvis showing diffuse wall thickening of bowel Radiology Impression Discussion of test interpretation with radiology: I have reviewed the radiologist's reading. Radiologist Impression: Date of Service: 07/17/24 Procedure(s): CT abdomen pelvis w IV con Accession Number(s): [id number] cc: Regina Cole MD; Valery Pedroza~ Report Number: [id number]: Total DLP = 0.00 mGy-cm EXAMINATION: CT ABDOMEN AND PELVIS WITH CONTRAST CLINICAL INFORMATION: Bilateral back pain, white count, UTI. COMPARISON: Noncontrast CT abdomen pelvis 07/15/2024, and postcontrast CT abdomen and pelvis 03/27/2023. TECHNIQUE: Multidetector volumetric images were obtained from the superior aspect of the liver through the pubic symphysis following administration 85 mL of Omnipaque 350 intravenous contrast. Sagittal and coronal reformatted images were obtained on the technologist's workstation. Oral contrast: No This CT examination was performed using dose optimization techniques as appropriate, variously including the following: *Automated exposure control *Adjustment of mA and/or kV according to patient size (this includes techniques or standardized protocols for targeted exams where dose is matched to indication/reason for exam; i.e. extremities or head) *Use of iterative reconstruction technique FINDINGS: LUNG BASES: The heart is normal in size. There are dense mitral annular calcifications, and extensive/heavy coronary calcifications. There is no pericardial effusion. There is mild elevation of the right hemidiaphragm. There are no effusions. The lung bases are otherwise clear. Small type I hiatus hernia suspected at the GE junction. LIVER, GALLBLADDER, AND BILIARY TREE: Liver demonstrates stable changes of left hepatectomy. The right lobe is normal in appearance. There is biliary gas present suggesting prior sphincterotomy. There has been a prior cholecystectomy. PANCREAS: Mild to moderate pancreatic atrophy. Mild prominence of the pancreatic duct. No discrete lesion seen. SPLEEN: Enlarged, with AP diameter of 12.8 cm, and craniocaudad dimension of 10.3 cm. There is a 9 mm cyst in the anterior aspect, unchanged from prior exams. There are subtle wedge-shaped foci of hypoattenuation in the anterior and peripheral inferior spleen, with subtle capsular retraction, consistent with splenic infarcts. These appear to be unchanged from 03/27/2023 CT exam. ADRENAL GLANDS: Unremarkable. KIDNEYS AND URETERS: RIGHT KIDNEY: There is a 4 mm nonobstructing calculus in the upper pole of the right kidney. There is an abutting 3 mm nonobstructing calculus in the midpole. There is an exophytic midpole cyst measuring 4.2 x 3.6 cm. There is no hydronephrosis, hydroureter, mass lesion, or striated nephrogram. No significant perirenal stranding. LEFT KIDNEY: There are tiny subcentimeter cysts present. There are no calculi, or masses. No hydronephrosis or hydroureter. No evidence of striation of the nephrogram. No significant perirenal stranding. BLADDER: Normal. There is evidence of pelvic floor weakness with bladder and rectal prolapse. GASTROINTESTINAL TRACT: The entire colon demonstrates wall thickening, mucosal enhancement, mild hyperemia, consistent with colitis. There is rectal involvement. There is thickening and inflammation of the most terminal ileum as well, leading into the ileocecal valve. Mild wall thickening of the stomach is noted although the stomach is somewhat decompressed. The duodenum appears grossly normal. The small bowel is otherwise normal in caliber and course, without additional region of inflammation. There are no CT features of appendicitis although the appendix is not well identified. ABDOMINAL WALL: No significant hernia is appreciated. LYMPH NODES: None enlarged by size criteria. VASCULAR: Severe atheromatous calcification of the aorta and iliac arteries with associated ectasia. No definite aneurysm identified. PELVIC VISCERA: There has been a hysterectomy. There is evidence of pelvic floor prolapse. There are no adnexal masses. OSSEOUS STRUCTURES: Scoliosis and advanced degenerative spondylosis of the imaged spine. Internal fixation of the left hip with a compression screw, an intramedullary kalani. Moderate compression deformity of T12 without change. CT/CT abdomen pelvis w IV con IMPRESSION: 1. Acute pancolitis, with rectal involvement. There is also involvement of the distal terminal ileum. This could be infectious and/or inflammatory. 2. Splenomegaly, with irregular splenic lesions in the lateral inferior spleen as described, essentially unchanged from 03/27/2023 and consistent with splenic infarcts. 3. Stable changes of left hepatectomy. Biliary gas present, likely from prior sphincterotomy. 4. Severe calcific atheromatous changes of the aorta and iliac arteries. No aneurysm. 5. Numerous additional ancillary findings as discussed in the body of the report. Procedure(s): XR lumbar spine 2-3V Accession Number(s): [id number] cc: Geno Miranda MD; Regina Cole MD~ EXAMINATION: XR LUMBOSACRAL SPINE CLINICAL INFORMATION: back pain COMPARISON: November 08, 2022. TECHNIQUE: Three views of the lumbosacral spine. FINDINGS: Levoconvex rotoscoliosis apex at L3-4. Multilevel marginal osteophyte formation and endplate sclerosis decreased intervertebral disc height throughout the thoracolumbar spine more pronounced at L4-5. Superior compression deformity likely old representing 40% volume loss at T12. Superior old compression deformity representing 80% volume loss at T9. Osteopenia versus osteoporosis. No acute cortical disruption. No gross malalignment. Vascular calcifications. Vascular clips right upper quadrant abdomen. Metallic screws no fully included in the [id number] in the left femoral head neck region. XR/XR lumbar spine 2-3V IMPRESSION: Multilevel thoracolumbar spondylosis and levoconvex rotoscoliosis more conspicuous at L4-5. Old likely osteoporotic compression fracture deformities at T12 and T9. Atherosclerosis disease. Electronically signed by: Riaz Bateman MD 07/17/2024 08:36 AM EDT Independent Historian Clinical information obtained from an independent historian. History obtained from or confirmed by: EMS Prescription Management I considered prescription management with: Antibiotic Social Determinants Patient?s care significantly limited by Social Determinants of Health including: Other Social Determinant of Health Critical Care Time Critical Care Time Critical Care Time: Yes Total Critical Care Time: 35 Attestation: Critical care time in the amount of 35 minutes has been provided to the patient in terms of direct patient care, frequent reevaluation, consultation with hospitalist, review and interpretation of medical data and results, and management of potentially life-threatening conditions. This is all outside of any medical procedures. Discharge Plan Discharge Clinical Impression: Colitis Patient Disposition: Admitted As Inpatient Print Language: Irish
[2024-07-17 08:21] LABS: Magnesium 1.6 mg/dL (1.6-2.6)
[2024-07-17] MEDS: Potassium Chloride/H20 10 MEQ/100 ML PIGGYBACK 100 MEQ IV ×4 (08:39→12:18)
[2024-07-17] MEDS: Magnesium Sulfate/H2O 2 GM/50 ML PIGGYBACK IV (08:39)
[2024-07-17 09:04] LABS: SLIDE REVIEW VERIFIED
[2024-07-17] MEDS: iohexoL 350 MG/ML 100 ML INFUS..BTL 85 ML IV (09:36)
[2024-07-17 10:21] LABS: Appearance Urine Clear; Color Urine Yellow; Glucose Urine UA Negative (Negative); Leukocyte Esterase Urine Negative (Negative); Nitrite Urine Negative (Negative); Specific Gravity - Urine 1.015 (1.005-1.025); Urine Blood Negative (Negative); Urine Ketones Negative (Negative); Urine Protein Negative (Neg-Trace)
[2024-07-17] MEDS: Acetaminophen 1,000 MG/100 ML PIGGYBACK 400 MG IV (10:37)
[2024-07-17] MEDS: ondansetron HCL 4 MG/2 ML VIAL IVPUSH (10:37)
[2024-07-17] MEDS: Ampicillin Sodium/Sulbactam Na 3 GM in 0.9 % Sodium Chloride 100 ML IV (10:38)
[2024-07-17 10:48] LABS: Lactic Acid 0.9 mmol/L (0.5-2.0)
--- NOTE | 2024-07-17 10:58 | PHA.MEDREC ---
Addendum entered by Froylan Butcher RPh 07/17/24 11:08: Reviewed by [facility] Original Note: Pharmacy Consult ? Medication Reconciliation Pharmacy has completed the medication reconciliation. Spoke to patient and patient daughter at bedside to confirm med list. Patient had a list of medications with her. Patient last took her medications 2 days ago except Levofloxacin 250 mg she took yesterday .
--- NOTE | 2024-07-17 10:59 | PC.NURSE ---
patient presenting from home for increasing back pain, reports has been taking oral antibiotics for UTI. ambulates independently with a cane to the bathroom. bilateral 20IV in patient forearms. receiving IV potassium and antibiotics at this time.
--- NOTE | 2024-07-17 11:10 | PM.IMHP ---
History of Present Illness Date of Service: 07/17/24 Chief Complaint: Abdominal pain 84-year-old female presented to the ED via EMS for evaluation of low back pain x1.5 weeks. Patient was initially evaluated for symptoms on 07/11/2024. She was diagnosed with a UTI at that time and placed on levofloxacin. Four days later, she presented to our facility with worsening symptoms including left-sided flank pain and increased urinary frequency. She was discharged home with diagnosis of colitis and advised to continue levofloxacin. Reports worsening low back pain over the last 2 days. Reports pain to bilateral lower back, worse on the left. Reports resolution of urinary symptoms. Denies any fever or chills, dysuria or hematuria. Reports mild nausea at present without any vomiting. Admits to one episode of nonbloody diarrhea yesterday. She currently lives at home alone. In the ER, H&H is noted to be stable 9.6/31.7, sodium 130, potassium 2.9, negative urinalysis, abdomen and pelvic CT showed acute galeano colitis with rectal involvement. Patient received a dose of ampicillin, Flagyl, magnesium, potassium, Zofran. She will be admitted for further management and treatment of pancolitis. Review of Systems Review of Systems: Denies any recent fever chills or decrease in appetite respiratory denies any shortness of breath or cough cardiovascular denied chest pain gastrointestinal See HPI genitourinary denies any dysuria frequency or hematuria musculoskeletal denies any joint pain or swelling neuropsych denies any weakness or seizures all other systems reviewed are negative [facility] Medical History Cavitary lesion of lung History of breast cancer History of breast cancer Cholecystectomy planned Diarrhea Family History Father CHF (congestive heart failure) Mother Diabetes mellitus Brother No problems noted. Sister No problems noted. Daughter No problems noted. Son No problems noted. Son No problems noted. Surgical History History of hip surgery History of mammogram History of excision of mass History of esophagogastroduodenoscopy (EGD) History of colonoscopy History of lumpectomy of right breast History of hysterectomy Social History Household Members: None Housing: House Are you a primary primary care coordinator to a significant other at home: No Do you presently have visiting nurse or other home services: No Alcohol intake: never Patient Tobacco Use Status: Never used Tobacco e-Cigarette/Vaping Use: Never Used Advance Directives: Yes Advance Directives on File: Yes Advance Directives Date on File: 12/16/19 Do you have a plan to hurt others: No Plan service: No Current occupational status: retired Cognitive needs: No Hearing needs: No Vision needs: Yes Meds Allergies Allergy/AdvReac Type Severity Reaction Status Date / Time codeine [CODEINE] Allergy Intermediate MOOD Verified 07/17/24 07:32 CHANGE, dizziness indigotindisulfonic acid Allergy Intermediate increased Verified 07/17/24 07:32 [[place]] blood pressure cephalexin [From KEFLEX] Allergy Unknown pt cannot Verified 07/17/24 07:32 remember reaction blue dye [BLUE DYE] AdvReac Intermediate ELEVATED Verified 07/17/24 07:32 BLOOD PRESSURE lisinopril [LISINOPRIL] AdvReac Intermediate cough, dry Verified 07/17/24 07:32 cough simvastatin [From ZOCOR] AdvReac Unknown pt can't Verified 07/17/24 07:32 remember reaction Active Medications: Current Medications Acetaminophen (Acetaminophen 325 Mg Tablet) 650 mg PO Q6H PRN PRN Reason: Pain, Mild 1-3,fever,headache Calcium Carbonate (Calcium Carbonate 750 Mg Tab.Chew) 750 mg PO Q4H PRN PRN Reason: Heartburn Potassium Chloride (Potassium Chloride/H20) 10 meq in 100 mls @ 100 mls/hr IV Q1H АЛЕКСАНДР Stop: 07/17/24 12:29 Last Admin: 07/17/24 10:37 Dose: 100 mls/hr Piperacillin Sod/Tazobactam (Sod 3.375 gm/ Sodium Chloride) 50 mls @ 100 mls/hr IV Q6H АЛЕКСАНДР Metronidazole (Flagyl) 500 mg in 100 mls @ 100 mls/hr IV Q8H АЛЕКСАНДР Magnesium Hydroxide (Milk Of Magnesia 30 Ml Oral.Susp) 30 ml PO DAILY PRN PRN Reason: Constipation Melatonin (Melatonin 3 Mg Tablet) 6 mg PO BEDTIME PRN PRN Reason: Insomnia Sodium Chloride (0.9 % Sodium Chloride Flush 3 Ml Syringe) 3 ml IVFLUSH QSHIFT [facility] Home Medications ?Medication ?Instructions ?Recorded ?Confirmed ?Last Taken ?Type aspirin 81 mg tablet,delayed 81 mg PO DAILY 01/20/21 07/17/24 07/15/24 History release (Adult Low Dose Aspirin) loratadine 10 mg tablet 10 mg PO DAILY 07/17/24 07/17/24 07/15/24 History Physical Exam Vital Signs and Narrative: Vital Signs: Last Vital Signs Temp 98.2 F 07/17/24 10:53 Pulse 83 07/17/24 09:31 Resp 16 07/17/24 09:31 BP 148/55 H 07/17/24 09:31 Pulse Ox 100 07/17/24 09:31 O2 Del Method Room Air 07/17/24 09:31 BMI result Body Mass Index 17.6 Appearing in no acute distress head is normocephalic atraumatic eyes pupils are PERRLA sclera is anicteric mouth throat mucous membranes are intact and moist neck is supple no lymphadenopathy, no JVD noted lung sounds are clear to auscultation heart regular rate rhythm, clear S1, S2 positive bowel sounds, abdomen is soft, nontender neuro patient is alert x3, no focal deficits Results Labs 07/17/24 07:42 07/17/24 07:42 Labs: Laboratory Results - last 24 hr 07/17/24 07/17/24 07/17/24 07:42 10:13 10:30 MCV 75.1 L MCH 22.7 L MCHC 30.3 L RDW 18.6 H Plt Count 228 MPV 8.9 L Immature Gran % (Auto) 0.7 H Neut % (Auto) 92.0 H Lymph % (Auto) 2.5 L Ray % (Auto) 4.5 Eos % (Auto) 0.1 Baso % (Auto) 0.2 Lymph # (Auto) 0.4 L Ray # (Auto) 0.7 Eos # (Auto) 0.0 Baso # (Auto) 0.0 Abs Immat Gran (auto) 0.12 H Absolute Neuts (auto) 14.9 H Absolute Nucleated RBC 0.000 Nucleated RBC % (auto) 0.0 Smear Tech's Comments VERIFIED Anion Gap 13 Estim Creat Clear Calc 35.2 Estimated GFR > 60 Random Glucose 85 Lactic Acid 0.9 Calcium 8.1 L Magnesium 1.6 Total Bilirubin 0.6 AST 27 ALT < 6 Alkaline Phosphatase 77 Total Protein 6.6 Albumin 3.2 L Urine Color Yellow Urine Appearance Clear Urine pH 7.0 Ur Specific [place] 1.015 Urine Protein Negative Urine Glucose (UA) Negative Urine Ketones Negative Urine Blood Negative Urine Nitrite Negative Ur Leukocyte Esterase Negative Imaging Radiologist's Impressions: Impressions Lumbar Spine X-Ray 07/17/24 08:08 IMPRESSION: Multilevel thoracolumbar spondylosis and levoconvex rotoscoliosis more conspicuous at L4-5. Old likely osteoporotic compression fracture deformities at T12 and T9. Atherosclerosis disease. Electronically signed by: Riaz Bateman MD 07/17/2024 08:36 AM EDT RP Abdomen/Pelvis CT 07/17/24 09:20 IMPRESSION: 1. Acute pancolitis, with rectal involvement. There is also involvement of the distal terminal ileum. This could be infectious and/or inflammatory. 2. Splenomegaly, with irregular splenic lesions in the lateral inferior spleen as described, essentially unchanged from 03/27/2023 and consistent with splenic infarcts. 3. Stable changes of left hepatectomy. Biliary gas present, likely from prior sphincterotomy. 4. Severe calcific atheromatous changes of the aorta and iliac arteries. No aneurysm. 5. Numerous additional ancillary findings as discussed in the body of the report. Electronically signed by: Erasmo Ahn MD 07/17/2024 10:05 AM EDT RP Assessment and Plan (1) Colitis: Status: Acute (2) HTN (hypertension): Qualifiers: Hypertension type: primary hypertension Qualified Code(s): I10 - Essential (primary) hypertension Status: Acute Plan 84-year-old woman admitted with pancolitis, abdominal pain and nausea Pancolitis with 1 episode of bloody stool Failed outpatient treatment Continue Zosyn and Flagyl GI consultation pain management, antiemetics Dysphagia Chronic GI consultation to assess need for further workup Hyponatremia Likely secondary to dehydration IV fluids Hypokalemia Likely secondary to poor nutrition Replete and monitor HTN Continue amlodipine and metoprolol GERD PPI Microcytic anemia Stable H&H, no bleeding Monitor DVT prophylaxis Quality Stroke Does the patient have a stroke diagnosis?: No VTE Prior VTE?: No VTE Risk Level:: Medical - moderate - high VTE Device Contraindication: Treatment Not Indicated VTE Drug Contraindication: N/A - Med Ordered
[2024-07-17] MEDS: Piperacillin Sodium/Tazobactam 3.375 GM in 0.9 % Sodium Chloride 50 ML IV ×2 (12:27→17:43)
[2024-07-17] MEDS: metroNIDAZOLE/NS 500 MG/100 ML PIGGYBACK 100 MG IV ×2 (13:19→20:24)
[2024-07-17] MEDS: Lactated Ringers 1,000 ML 80 ML IVCONT (14:12)
--- NOTE | 2024-07-17 16:06 | PC.NURSE ---
continues to ambulate with one assist and cane to the bathroom. GI panel and c diff pending, patient has not had any bowel movement today.
--- NOTE | 2024-07-17 19:21 | PM.EVENT ---
Event Note Date of Service: 07/17/24 Event Note: GI Consult-Full note dictated-History from patient and EMR Imp: 84 yo female with an underlying history of microscopic colitis for which she is only on Imodium with typically good control of the diarrhea. She was treated for a UTI recently and is now admitted for back pain and CT suggestive of colitis. However, she denies any particular new issues with her BM's or abdominal pain. She has had CT scans in the past describing similar thickening of the colon as well. She had 1 or 2 loose stools yesterday but none today. She has been NPO but is hungry. Her abdominal exam is benign. She has had some recurrence of dysphagia after an upper endo with balloon dilation in 2022 as well. Rec: Check stool for C.diff due to recent use of antibiotics. Start a soft diet. I don't think she needs any antibiotics in regard to any potential GI process given her benign abdominal exam and lack of any significant GI symptoms at this time. If her GI symptoms do worsen with diarrhea, etc, please let me know. I did advise her to contact my office to set up a possible repeat upper endo and dilation for her recurrent dysphagia if need be. D/W patient in detail and she is comfortable with this plan. Thanks Time Spent With Patient Time: Total time managing care of this patient today ____ minutes.
--- NOTE | 2024-07-17 20:28 | PC.NURSE ---
pt was incontinent of stool, medicated per may.
--- NOTE | 2024-07-17 21:12 | PC.NURSE ---
Notified family of patient room [id number]
[2024-07-17] MEDS: Famotidine 20 MG TABLET PO (22:20)
[2024-07-17] MEDS: 0.9 % Sodium Chloride Flush 3 ML SYRINGE IVFLUSH (22:20)
[2024-07-17] MEDS: Acetaminophen 325 MG TABLET 650 MG PO (22:20)
[2024-07-17 23:10] LABS: CDiff Gene PCR NEGATIVE (Negative)
[2024-07-18] VITALS: BP 135/63; PULSE 80; RESP 18; TEMP 36.5; O2SAT 98
--- NOTE | 2024-07-18 00:22 | CONS_ITS ---
DATE OF SERVICE: 07/17/2024 REASON FOR CONSULTATION: History of microscopic colitis, abnormal CT scan of colon, and occasional diarrhea. HISTORY OF PRESENT ILLNESS: This has been obtained from the patient and the medical record. The patient is an 84-year-old female, known to me from past office visits and GI procedures with a diagnosis of an underlying microscopic colitis made back in 2007. Over the years, she has been treated with mesalamine, but more recently has been getting by with just p.r.n. Imodium as well as using Imodium once or twice on a regular basis during the day. Overall, her colitis has not been bothering her lately. She has had a longstanding and chronic anemia, which has undergone workups including an upper endoscopy and a colonoscopy. From a GI standpoint, the patient reports that she has been doing fairly well. 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 At that time, she was having a lot of dysphagia, but the dilation did help her significantly. She does describe that over the past 2 to 3 months, she has had some recurrence of dysphagia and is maintaining herself on just a soft diet at this point. After the dilation in 2022, she did report significant improvement up until the past couple of months. She was seen recently in the ER for a urinary infection and some back pain. She was treated with antibiotics as an outpatient. She came back today due to some worsening back pain. The CT scan described some thickening of the colon, although this has been seen on previous CT scans dating back about 5 years to one degree or another. In discussion with the patient, she reports that she is not having any particular issues with abdominal pain or diarrhea. She did have 1 to 2 loose stools yesterday, but none today. She has been n.p.o. today and is hungry. She denies any significant heartburn or dysphagia. She denies any abdominal pains at home, fevers, or jaundice. She has been afebrile here in the hospital. Vital signs have otherwise been stable. MEDICATIONS: At home included amlodipine, aspirin 81 mg, calcium, vitamin D, famotidine, levofloxacin, loratadine, and metoprolol. Her current medications here in the hospital include acetaminophen, amlodipine, 81 mg aspirin, calcium, vitamin D, famotidine, Dilaudid p.r.n., loratadine, melatonin p.r.n., metoprolol, IV Flagyl, Zofran, and IV Zosyn. PAST MEDICAL HISTORY: Microscopic colitis diagnosed in 2007 as mentioned above. Hypertension. Hyperlipidemia. Vay-rligwct-jkhzkklyd diabetes mellitus. History of breast cancer, treated with lumpectomy and radiation treatments in 2004. She denies any history of [place], stroke, lung disease, nor kidney disease. Her most recent colonoscopy in 2011, was negative. Previous biopsies have been negative for celiac disease. She did have a small bowel capsule study describing questionable AVMs in the small bowel. She has had a history of choledocholithiasis, for which she underwent ERCP with sphincterotomy in 2017. She has had a history of mouth ulcers, responsive to oral steroid solution. Cricopharyngeal achalasia, status post upper endoscopy and dilation in 2022, as described above. Aside from the lumpectomy, she has also had a hysterectomy, appendectomy, vaginal prolapse surgery, fracture of left femur, and cholecystectomy. SOCIAL HISTORY: She is a and lives by herself. She does not smoke or drink. FAMILY HISTORY: Noncontributory. REVIEW OF SYSTEMS: CONSTITUTIONAL: Her appetite has been fairly good. CARDIAC: No chest pain. PULMONARY: No cough. No hemoptysis. GI: As above. URINARY: No dysuria or hematuria. PHYSICAL EXAMINATION: GENERAL: The patient is a thin, pleasant, alert female, in no distress. SKIN: Warm and dry. Anicteric sclerae. Moist mucous membranes. NECK: Supple. CHEST: Clear. CARDIAC: Normal S1, S2. ABDOMEN: Soft, nondistended, nontender with normal bowel sounds. There is no guarding or rebound. EXTREMITIES: Without edema. LABORATORY DATA: White blood cell count 16.3, hemoglobin 9.6, MCV 75, platelets 228,000. Sodium 130, potassium 2.9, BUN 12, creatinine 0.8. Normal LFTs. Albumin 3.2. Her CT scan from today describes some colonic wall thickening from the rectum to the cecum. Also described some thickening in the terminal ileum. Previous CT scans dating back to 2019, described some diffuse thickening in at least the ascending colon. IMPRESSION AND PLAN: Given the patient's clinical history, I do not think she is having any clinically significant colitis at this time. She is not having any significant diarrhea at the present time. Her abdominal exam is benign. A CT scan shows more of chronic changes as opposed to anything new and acute. She does have a known history of microscopic colitis, which may be contributing to the thickening of the colonic wall appearance on the CT scans. At this point, I think she can be started on a soft diet and I have ordered that for her. I do not think she needs any antibiotics in regard to any potential underlying gastrointestinal process given her benign abdominal exam and the clinical history. I would check a stool for Clostridium difficile as you are doing given her recent antibiotic use and occasional loose stools at home. Certainly, if she develops any worsening diarrhea and gastrointestinal symptoms, then we can always reassess that if need be. In regard to the trouble swallowing, I did advise her to contact my office once she is discharged and we can contemplate a repeat upper endoscopy and dilation if need be. This has been discussed with the patient in detail and she is comfortable with the plan. Thanks for the consultation. MD CHASE Stewart/RAY / [id number] MTDD
[2024-07-18] MEDS: Piperacillin Sodium/Tazobactam 3.375 GM in 0.9 % Sodium Chloride 50 ML IV ×2 (00:53→05:35)
[2024-07-18] MEDS: Lactated Ringers 1,000 ML 80 ML IVCONT (00:54)
[2024-07-18 03:38] VITALS: BP 129/62; PULSE 78; RESP 18; TEMP 36.2; O2SAT 99
[2024-07-18] MEDS: metroNIDAZOLE/NS 500 MG/100 ML PIGGYBACK 100 MG IV (03:47)
[2024-07-18 03:56] VITALS: BMI 16.4
[2024-07-18 08:00] VITALS: BP 136/65; PULSE 77; RESP 18; TEMP 36.2; O2SAT 99
[2024-07-18] MEDS: Metoprolol Succinate ER 12.5 MG HALFTAB.ER.24H PO (08:44)
[2024-07-18] MEDS: Cholecalciferol (Vitamin D3) 25 MCG TABLET PO (08:44)
[2024-07-18] MEDS: Acetaminophen 325 MG TABLET 650 MG PO ×2 (08:44→14:40)
[2024-07-18] MEDS: amLODIPine Besylate 5 MG TABLET PO (08:44)
[2024-07-18] MEDS: Aspirin Enteric Coated 81 MG TABLET.DR PO (08:44)
[2024-07-18] MEDS: Loratadine 10 MG TABLET PO (08:45)
[2024-07-18] MEDS: 0.9 % Sodium Chloride Flush 3 ML SYRINGE IVFLUSH ×2 (08:46→14:45)
[2024-07-18 09:06] LABS: Adenovirus F 40/41 Not Detected (Not Detect.); Astrovirus Not Detected (Not Detect.); Campylobacter Not Detected (Not Detect.); Cryptosporidium Not Detected (Not Detect.); Cyclospora cayetanensis Not Detected (Not Detect.); E. coli EAEC Not Detected (Not Detect.); E. coli EPEC Not Detected (Not Detect.); E. coli ETEC Not Detected (Not Detect.); E. coli STEC Not Detected (Not Detect.); Entamoeba histolytica Not Detected (Not Detect.); Giardia lamblia Not Detected (Not Detect.); Norovirus GI/GII Not Detected (Not Detect.); Plesiomonas shigelloides Not Detected (Not Detect.); Rotavirus A Not Detected (Not Detect.); Salmonella Not Detected (Not Detect.); Sapovirus Not Detected (Not Detect.); Shigella sp./EIEC Not Detected (Not Detect.); Vibrio Not Detected (Not Detect.); Vibrio Cholerae Not Detected (Not Detect.); Yersinia enterocolitica Not Detected (Not Detect.)
[2024-07-18 09:38] LABS: Magnesium 2.3 mg/dL (1.6-2.6)
[2024-07-18 10:41] VITALS: BMI 16.4
--- NOTE | 2024-07-18 10:57 | MHC.CLN ---
PT IS MODERATELY MALNOURISHED PT WITH MILDLY DEPLETED SUBCUTANEOUS FAT AND MUSCLE MASS WITH BMI 16.4 AND 10% NONSIGNIFICANT WT LOSS X1 YEAR AND CHRONIC DIARRHEA R/T COLITIS, ABT TX AND UTIS NOTED C-DIFF NEGATIVE DIET RX: CHOPPED CARDIAC-RECOMMEND LIBERALIZED DIET R/T MALNUTRITION; WILL REMOVE CARDIAC DIET RESTRICTION RECOMMEND ADDING ENSURE BID TO INCREASE KCALS SUPP PROVIDES 700KCALS, 40G PROTEIN MONITOR PO INTAKE AND ENCOURAGE SUPPLEMENT SEE FULL CLINICAL NUTRITION ASSESSMENT
[2024-07-18 11:11] VITALS: BP 136/60; PULSE 76; RESP 18; TEMP 36.6; O2SAT 100
--- NOTE | 2024-07-18 12:02 | MHC.CM.PN ---
IMM 07/18/24 Patient lives by herself. She uses a cane for unsteady gait. She states that she is independent with ADLs. She has a homemaker and lawncare services. DP home self care. Patient will arrange for her dtr or son to provide transportation home.
[2024-07-18 12:46] LABS: Hematocrit 34.9 % (37.0-47.0); Hemoglobin 9.9 g/dl (12.0-16.0); Mean Corpuscular HGB Conc 28.4 g/dl (31.0-35.0); Mean Corpuscular Hemoglobin 22.2 pg (27.0-33.0); Mean Corpuscular Volume 78.4 fL (80.0-98.0); Mean Platelet Volume 9.3 fL (9.4-12.3); Platelet Count 241 X10*3/uL (160-400); Red Blood Count 4.45 X10*6/uL (4.20-5.50); Red Cell Distribution Width 18.9 % (11.0-16.0); White Blood Count 11.7 X10*3/uL (4.8-10.8)
[2024-07-18 12:47] LABS: Anion Gap 12 (12-20); Blood Urea Nitrogen 12 mg/dL (9-16); Calcium 8.1 mg/dL (8.4-10.2); Carbon Dioxide 19 mmol/L (22-29); Chloride 110 mmol/L (96-108); Creatinine Clr Calc Pharmacy 26.9; Estimated Glomerular Filt Rate 56; Glucose Random 94 mg/dL (60-115); Sodium 138 mmol/L (135-145)
[2024-07-18] MEDS: Potassium Chloride ER 20 MEQ TAB.ER.PRT 60 MEQ PO (14:40)
[2024-07-18] MEDS: Loperamide HCl 2 MG CAPSULE PO (14:40)
[2024-07-18 15:35] VITALS: BP 147/65; PULSE 70; RESP 18; TEMP 36.5; O2SAT 99
--- NOTE | 2024-07-18 16:25 | HO.PM.IMPN ---
Subjective Subjective Date of Service: 07/18/24 Interval History: seen and examined this morning Follow-up for reported abdominal pain, diarrhea denies abdominal pain - after further discussion pain was always left lower back. no nausea or vomiting, no urinary symptoms. 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 Review of Systems Review of Systems: Yes all other systems are reviewed and are negative Constitutional Constitutional: Denies chills and Denies fever(s) Physical Exam Vital Signs: Vital Signs: Last Vital Signs Temp 97.7 F 07/18/24 15:35 Pulse 70 07/18/24 15:35 Resp 18 07/18/24 15:35 BP 147/65 H 07/18/24 15:35 Pulse Ox 99 07/18/24 15:35 O2 Del Method Room Air 07/18/24 15:35 BMI result Body Mass Index 16.4 Const: Other: frail eldery female resting in bed comfortably General: comfortable, no acute distress, alert and awake Nutritional Appearance: thin Orientation/consciousness: patient oriented x3 Resp: Effort & Inspection: normal respiratory effort, able to speak in complete sentences, no respiratory distress and no use of accessory muscles Cardio: Rate: regular rate GI: Inspection: No distended Palpation (GI): Soft to palpation and nontender : General: Yes no CVA tenderness Back/Spine/Pelvis: Other: left paraspinal tenderness lumbar area Back: no CVA tenderness Neuro: General: patient oriented x3, moves all extremities and CN's II-XI intact bilaterally Extrem: General: Yes no pedal edema Objective Data Active Medications Acetaminophen (Acetaminophen 325 Mg Tablet) 650 mg PO Q6H PRN PRN Reason: Pain, Mild 1-3,fever,headache Last Admin: 07/18/24 14:40 Dose: 650 mg Documented By: KRISTYN Amlodipine Besylate (Amlodipine Besylate 5 Mg Tablet) 5 mg PO DAILY [facility]END[facility] TO [facility]; Protocol Last Admin: 07/18/24 08:44 Dose: 5 mg Documented By: KRISTYN Aspirin (Aspirin Enteric Coated 81 Mg Tablet.) 81 mg PO DAILY [facility] Last Admin: 07/18/24 08:44 Dose: 81 mg Documented By: KRISTYN Calcium Carbonate (Calcium Carbonate 750 Mg Tab.Chew) 750 mg PO Q4H PRN PRN Reason: Heartburn Famotidine (Famotidine 20 Mg Tablet) 20 mg PO Q48H [facility] Last Admin: 07/17/24 22:20 Dose: 20 mg Documented By: PEYTON Hydromorphone HCl (Hydromorphone Hcl 0.5 Mg/0.5 Ml Syringe) 0.5 mg IVPUSH Q4H PRN; Protocol PRN Reason: Pain, Severe (Pain Scale 7-10) Loperamide HCl (Loperamide Hcl 2 Mg Capsule) 2 mg PO Q4H PRN PRN Reason: Diarrhea Last Admin: 07/18/24 14:40 Dose: 2 mg Documented By: KRISTYN Loratadine (Loratadine 10 Mg Tablet) 10 mg PO DAILY [facility] Last Admin: 07/18/24 08:45 Dose: 10 mg Documented By: KRISTYN Magnesium Hydroxide (Milk Of Magnesia 30 Ml Oral.Susp) 30 ml PO DAILY PRN PRN Reason: Constipation Melatonin (Melatonin 3 Mg Tablet) 6 mg PO BEDTIME PRN PRN Reason: Insomnia Metoprolol Succinate (Metoprolol Succinate Er 12.5 Mg Halftab.Er.24h) 12.5 mg PO DAILY [facility]; Protocol Last Admin: 07/18/24 08:44 Dose: 12.5 mg Documented By: KRISTYN Sodium Chloride (0.9 % Sodium Chloride Flush 3 Ml Syringe) 3 ml IVFLUSH QSHIFT [facility] Last Admin: 07/18/24 14:45 Dose: 3 ml Documented By: KRISTYN Vitamin D (Cholecalciferol (Vitamin D3) 25 Mcg Tablet) 25 mcg PO DAILY [facility] Last Admin: 07/18/24 08:44 Dose: 25 mcg Documented By: KRISTYN Labs 07/18/24 12:26 07/18/24 12:26 Labs: Laboratory Results - last 24 hr 07/17/24 07/18/24 07/18/24 22:12 08:58 12:26 MCV 78.4 L MCH 22.2 L MCHC 28.4 L RDW 18.9 H Plt Count 241 MPV 9.3 L Absolute Nucleated RBC 0.000 Nucleated RBC % (auto) 0.0 Anion Gap 12 Estim Creat Clear Calc 26.9 Estimated GFR 56 Random Glucose 94 Calcium 8.1 L Magnesium 2.3 Stl C. cayetanensis PCR Not Detected Stool Rotavirus A PCR Not Detected Stl Adenov F 40/41 PCR Not Detected Stool Astrovirus (PCR) Not Detected Stool Campylobacter PCR Not Detected Stool Cryptosporidium PCR Not Detected Stl Sh Tox Pr E STEC PCR Not Detected Stool E coli O157 PCR Not applicable Stl Enterotoxigenic E PCR Not Detected Stool EPEC (PCR) Not Detected Stool EAEC (PCR) Not Detected Stl E. histolytica PCR Not Detected Stool Giardia Lamblia PCR Not Detected Stl P. shigelloides PCR Not Detected Stool Salmonella PCR Not Detected Stool Sapovirus (PCR) Not Detected Stl Shigella/EIEC PCR Not Detected St Y.enterocolitica PCR Not Detected Stool Vibrio (PCR) Not Detected Stl Vibrio cholerae PCR Not Detected Stl Norovirus GI/GII PCR Not Detected C. difficile Tox B Gene NEGATIVE Microbiology Microbiology Results: Microbiology 07/17/24 10:30 Blood Culture - Preliminary Blood - Venous No growth after 24 hours. 07/17/24 07:44 Blood Culture - Preliminary Blood - Venous No growth after 24 hours. Assessment and Plan (1) Acute hypokalemia: Status: Acute Plan This is an 84-year-old female with history of microscopic colitis controlled with Imodium who presented with abdominal pain admitted with pancolitis, abdominal pain and nausea diarrhea imaging showed galeano colitis, initially treated with IV abx patient has a history of microscopic colitis. seen by GI. no new symptoms, no abdominal pain. changes on CT not new. no need for abx. C diff negative, GI panel negative white count trending down tolerating diet prn imodium Dysphagia Chronic seen by GI - outpatient follow up Hyponatremia Likely secondary to dehydration resolved with IV fluid Hypokalemia due to diarrhea and decreased p.o. intake mag level ok improving, continue po replacement recent UTI repeat UA negative HTN Continue amlodipine and metoprolol GERD PPI Microcytic anemia Stable H&H, no bleeding Monitor DVT prophylaxis - mechanical devices Quality Stroke Does the patient have a stroke diagnosis?: No VTE Prior VTE?: No VTE Risk Level:: Medical - moderate - high VTE Device Contraindication: Treatment Not Indicated VTE Drug Contraindication: N/A - Med Ordered
[2024-07-18 19:25] VITALS: BP 135/66; PULSE 70; RESP 16; TEMP 36.5; O2SAT 100
[2024-07-18] MEDS: Potassium Chloride ER 20 MEQ TAB.ER.PRT PO (20:40)
[2024-07-19] VITALS (8 sets, daily range): BP systolic 137–158; BP diastolic 63–74; PULSE 65–73; RESP 16–18; TEMP 36.4–36.9; O2SAT 95–100
[2024-07-19] MEDS: Acetaminophen 325 MG TABLET 650 MG PO ×3 (01:47→20:29)
[2024-07-19] MEDS: Aspirin Enteric Coated 81 MG TABLET.DR PO (08:52)
[2024-07-19] MEDS: Loratadine 10 MG TABLET PO (08:52)
[2024-07-19] MEDS: Metoprolol Succinate ER 12.5 MG HALFTAB.ER.24H PO (08:52)
[2024-07-19] MEDS: 0.9 % Sodium Chloride Flush 3 ML SYRINGE IVFLUSH ×3 (08:52→20:37)
[2024-07-19] MEDS: Cholecalciferol (Vitamin D3) 25 MCG TABLET PO (08:52)
[2024-07-19] MEDS: amLODIPine Besylate 5 MG TABLET PO (08:52)
[2024-07-19 09:59] LABS: Anion Gap 10 (12-20); Blood Urea Nitrogen 13 mg/dL (9-16); Calcium 8.2 mg/dL (8.4-10.2); Carbon Dioxide 20 mmol/L (22-29); Chloride 112 mmol/L (96-108); Creatinine Clr Calc Pharmacy 33.6; Estimated Glomerular Filt Rate > 60; Glucose Random 77 mg/dL (60-115); Potassium 4.2 mmol/L (3.3-5.1); Sodium 138 mmol/L (135-145)
--- NOTE | 2024-07-19 12:02 | P.DS_ITS ---
DS: Providers Provider Date of Service: 07/19/24 Date of admission: 07/17/24 10:23 Date of discharge: 07/19/24 Primary care physician: Rgeina Cole MD Consults: 07/17/24 11:06 Consult to Gastroenterology Routine Consulting Provider: John Amaya Reason for consultation: pancolitis [facility]: Bertha North DS: Diagnosis Discharge Diagnosis (1) Acute hypokalemia: Status: Acute DS: Summary Hospital Course Hospital Course: From H&P on the day of admission 84-year-old female presented to the ED via EMS for evaluation of low back pain x1.5 weeks. Patient was initially evaluated for symptoms on 07/11/2024. She was diagnosed with a UTI at that time and placed on levofloxacin. Four days later, she presented to our facility with worsening symptoms including left-sided flank pain and increased urinary frequency. She was discharged home with diagnosis of colitis and advised to continue levofloxacin. Reports worsening low back pain over the last 2 days. Reports pain to bilateral lower back, worse on the left. Reports resolution of urinary symptoms. Denies any fever or chills, dysuria or hematuria. Reports mild nausea at present without any vomiting. Admits to one episode of nonbloody diarrhea yesterday. She currently lives at home alone. In the ER, H&H is noted to be stable 9.6/31.7, sodium 130, potassium 2.9, negative urinalysis, abdomen and pelvic CT showed acute galeano colitis with rectal involvement. Patient received a dose of ampicillin, Flagyl, magnesium, potassium, Zofran. She will be admitted for further management and treatment of pancolitis. diarrhea imaging showed galeano colitis, initially treated with IV abx patient has a history of microscopic colitis. seen by GI. no new symptoms, no abdominal pain. changes on CT not new. no need for abx. C diff negative, GI panel negative white count trending down. tolerating diet. can continue prn imodium for control of chronic diarrhea. Dysphagia Chronic. Tolerating chopped diet. seen by GI - outpatient follow up for consideration of repeat EGD Hyponatremia Likely secondary to dehydration. resolved with IV fluid Hypokalemia due to diarrhea and decreased p.o. intake. mag level ok. Resolved with oral replacement recent UTI repeat UA negative back pain no abdominal pain, pain left side lower back paraspinal muscles. lumbar spine xray showing likely chronic compression fracture deformities at T12 and T9. Likely muscular pain. responding to moist heat. continue prn hot packs. Patient was evaluated by Physical therapy who recommended short-term rehab. Time Attestation Discharge Coordination Time (in mins): 35 Quality: Safe Use of Opioids Does Pt have an Active Cancer Diagnosis on the Problem List?: No Quality: Stroke Does the patient have a stroke diagnosis?: No Physical Exam Vital Signs: Vital Signs: Last Vital Signs Temp 98.2 F 07/19/24 08:00 Pulse 71 07/19/24 11:29 Resp 16 07/19/24 08:00 BP 158/70 H 07/19/24 11:29 Pulse Ox 99 07/19/24 11:29 O2 Del Method Room Air 07/19/24 08:00 BMI result Body Mass Index 16.4 Const: Other: frail eldery female resting in bed comfortably General: comfortable, no acute distress, alert and awake Nutritional Appearance: thin Orientation/consciousness: patient oriented x3 Resp: Effort & Inspection: normal respiratory effort, able to speak in complete sentences, no respiratory distress and no use of accessory muscles Cardio: Rate: regular rate GI: Inspection: No distended Palpation (GI): Soft to palpation and nontender : General: Yes no CVA tenderness Back/Spine/Pelvis: Other: left paraspinal tenderness lumbar area Back: no CVA tenderness Neuro: General: patient oriented x3, moves all extremities and CN's II-XI intact bilaterally Extrem: General: Yes no pedal edema DS: Data Data Completed and Pending Completed studies during hospitalization [Text1]: Procedures Transfusion of Nonautologous Red Blood Cells into Peripheral Vein, Percutaneous Approach (01/02/20) Labs on day of discharge: Laboratory Results - last 24 hr 07/18/24 07/19/24 12:26 08:44 WBC 11.7 H RBC 4.45 Hgb 9.9 L Hct 34.9 L MCV 78.4 L MCH 22.2 L MCHC 28.4 L RDW 18.9 H Plt Count 241 MPV 9.3 L Absolute Nucleated RBC 0.000 Nucleated RBC % (auto) 0.0 Sodium 138 138 Potassium 3.0 L 4.2 D Chloride 110 H 112 H Carbon Dioxide 19 L 20 L Anion Gap 12 10 L BUN 12 13 Creatinine 0.95 0.76 Estim Creat Clear Calc 26.9 33.6 Estimated GFR 56 > 60 Random Glucose 94 77 Calcium 8.1 L 8.2 L Preliminary micro results at discharge 07/17/24 10:30 Blood Culture - Preliminary Blood - Venous No growth after 24 hours. 07/17/24 07:44 Blood Culture - Preliminary Blood - Venous No growth after 24 hours. Discharge Plan Discharge Anticipated Discharge Date/Time: 07/20/24 10:39 Patient Disposition: Xfer SNF Discharge Diagnosis: diarrhea Referrals: [facility] [Outside] - 1 Week Regina Cole MD [Primary Care Provider] - 1 Week Discharge Medications: Continued famotidine 20 mg tablet 20 mg PO BEDTIME Qty: 90 0RF amlodipine 5 mg tablet 5 mg PO DAILY Qty: 90 1RF metoprolol succinate 25 mg tablet extended release 24 hr 12.5 mg PO DAILY 90 Days Qty: 45 3RF calcium carbonate [Calcium 600] 600 mg calcium (1,500 mg) Tablet 600 mg PO BID Qty: 180 4RF cholecalciferol (vitamin D3) 25 mcg (1,000 unit) capsule 25 mcg PO DAILY Qty: 90 3RF loratadine 10 mg Tablet 10 mg PO DAILY aspirin [Adult Low Dose Aspirin] 81 mg tablet,delayed release (DR/EC) 81 mg PO DAILY Discontinued levofloxacin 250 mg tablet 250 mg PO DAILY 10 Days Qty: 10 0RF Rx Instructions: End date 07/20/24 Discharge Orders: Discharge Order (Routine); Ordered 07/20/24 Ordered By: Jacquelyn Alston Diet: Advance to usual diet Activity on Discharge: As tolerated Stand Alone Forms: Patient Portal Discharge page Print Language: Thai Care Plan Goals: See below Health Concerns: Chronic microscopic colitis Chronic diarrhea Hypokalemia resolved Plan of Treatment: P.r.n. Imodium for control of diarrhea Call to schedule outpatient follow-up appointment with GI for EGD Continue modified NDD 3 diet with dietary supplements Assessment: See discharge summary
--- NOTE | 2024-07-19 12:19 | MHC.CM.PN ---
IMM PT rec is STR. Met with patient and her dtr to discuss DP. Preferences for STR were obtained, and referrals sent. [facility] not [facility] any [facility] to offer. [facility]. The bed will be available tomorrow. DP To [facility] via BLS. A VM has been left for Elaine/DTR/HCP.
--- NOTE | 2024-07-19 13:21 | MHC.CLN ---
F/U PT IS MODERATELY MALNOURISHED SEE FULL CLINICAL NUTRITION ASSESSMENT DATED 07/19/24 PO INTAKE 25% X3 MEALS DIET RX: CHOPPED PT RECEIVING ENSURE BID TO INCREASE KCALS SUPP PROVIDES 700KCALS, 40G PROTEIN MONITOR PO INTAKE AND ENCOURAGE SUPPLEMENT
--- NOTE | 2024-07-19 15:38 | HO.PM.IMPN ---
Subjective Subjective Date of Service: 07/19/24 Interval History: seen and examined this morning follow up for diarrhea no abdominal pain, tolerating diet Review of Systems Review of Systems: Yes all other systems are reviewed and are negative Constitutional Constitutional: Denies chills and Denies fever(s) Cardiovascular Cardiovascular: Denies chest pain and Denies palpitations Endocrine Endocrine: Denies palpitations Physical Exam Vital Signs: Vital Signs: Last Vital Signs Temp 98.4 F 07/19/24 12:00 Pulse 66 07/19/24 12:00 Resp 17 07/19/24 12:00 BP 137/63 07/19/24 12:00 Pulse Ox 99 07/19/24 12:00 O2 Del Method Room Air 07/19/24 12:00 BMI result Body Mass Index 16.4 Const: Other: frail eldery female resting in bed comfortably General: comfortable, no acute distress, alert and awake Nutritional Appearance: thin Orientation/consciousness: patient oriented x3 Resp: Effort & Inspection: normal respiratory effort, able to speak in complete sentences, no respiratory distress and no use of accessory muscles Cardio: Rate: regular rate GI: Inspection: No distended Palpation (GI): Soft to palpation and nontender : General: Yes no CVA tenderness Back/Spine/Pelvis: Other: left paraspinal tenderness lumbar area Back: no CVA tenderness Neuro: General: patient oriented x3, moves all extremities and CN's II-XI intact bilaterally Extrem: General: Yes no pedal edema Objective Data Active Medications Acetaminophen (Acetaminophen 325 Mg Tablet) 650 mg PO Q6H PRN PRN Reason: Pain, Mild 1-3,fever,headache Last Admin: 07/19/24 08:51 Dose: 650 mg Documented By: ABDIRAHMAN Amlodipine Besylate (Amlodipine Besylate 5 Mg Tablet) 5 mg PO DAILY [facility]; Protocol Last Admin: 07/19/24 08:52 Dose: 5 mg Documented By: ABDIRAHMAN Aspirin (Aspirin Enteric Coated 81 Mg Tablet.) 81 mg PO DAILY [facility] Last Admin: 07/19/24 08:52 Dose: 81 mg Documented By: ABDIRAHMAN Calcium Carbonate (Calcium Carbonate 750 Mg Tab.Chew) 750 mg PO Q4H PRN PRN Reason: Heartburn Famotidine (Famotidine 20 Mg Tablet) 20 mg PO Q48H [facility] Last Admin: 07/17/24 22:20 Dose: 20 mg Documented By: PEYTON Hydromorphone HCl (Hydromorphone Hcl 0.5 Mg/0.5 Ml Syringe) 0.5 mg IVPUSH Q4H PRN; Protocol PRN Reason: Pain, Severe (Pain Scale 7-10) Loperamide HCl (Loperamide Hcl 2 Mg Capsule) 2 mg PO Q4H PRN PRN Reason: Diarrhea Last Admin: 07/18/24 14:40 Dose: 2 mg Documented By: KRISTYN Loratadine (Loratadine 10 Mg Tablet) 10 mg PO DAILY [facility] Last Admin: 07/19/24 08:52 Dose: 10 mg Documented By: ABDIRAHMAN Magnesium Hydroxide (Milk Of Magnesia 30 Ml Oral.Susp) 30 ml PO DAILY PRN PRN Reason: Constipation Melatonin (Melatonin 3 Mg Tablet) 6 mg PO BEDTIME PRN PRN Reason: Insomnia Metoprolol Succinate (Metoprolol Succinate Er 12.5 Mg Halftab.Er.24h) 12.5 mg PO DAILY [facility]; Protocol Last Admin: 07/19/24 08:52 Dose: 12.5 mg Documented By: ABDIRAHMAN Sodium Chloride (0.9 % Sodium Chloride Flush 3 Ml Syringe) 3 ml IVFLUSH QSHIFT [facility] Last Admin: 07/19/24 15:29 Dose: 3 ml Documented By: ABDIRAHMAN Vitamin D (Cholecalciferol (Vitamin D3) 25 Mcg Tablet) 25 mcg PO DAILY [facility] Last Admin: 07/19/24 08:52 Dose: 25 mcg Documented By: ABDIRAHMAN Labs 07/18/24 12:26 07/19/24 08:44 Labs: Laboratory Results - last 24 hr 07/19/24 08:44 Anion Gap 10 L Estim Creat Clear Calc 33.6 Estimated GFR > 60 Random Glucose 77 Calcium 8.2 L Microbiology Microbiology Results: Microbiology 07/17/24 10:30 Blood Culture - Preliminary Blood - Venous No growth after 48 hours. 07/17/24 07:44 Blood Culture - Preliminary Blood - Venous No growth after 48 hours. Assessment and Plan (1) Colitis: Status: Acute Plan This is an 84-year-old female with history of microscopic colitis controlled with Imodium who presented with abdominal pain admitted with pancolitis, abdominal pain and nausea diarrhea imaging showed galeano colitis, initially treated with IV abx patient has a history of microscopic colitis. seen by GI. no new symptoms, no abdominal pain. changes on CT not new. no need for abx. C diff negative, GI panel negative white count trending down tolerating diet prn imodium Dysphagia Chronic seen by GI - outpatient follow up tolerating modified diet Hyponatremia Likely secondary to dehydration resolved with IV fluid Hypokalemia due to diarrhea and decreased p.o. intake mag level ok Resolved with replacement recent UTI repeat UA negative HTN Continue amlodipine and metoprolol GERD PPI Microcytic anemia Stable H&H, no bleeding DVT prophylaxis - mechanical devices Disposition-PT recommended short-term rehab, anticipate discharge to short-term rehab on July 20 Quality Stroke Does the patient have a stroke diagnosis?: No VTE Prior VTE?: No VTE Risk Level:: Medical - moderate - high VTE Device Contraindication: Treatment Not Indicated VTE Drug Contraindication: N/A - Med Ordered
--- NOTE | 2024-07-19 15:49 | P.CDIM_ITS ---
PROVIDER RESPONSE TEXT: To clarify, the appropriate diagnosis supported by the clinical indicators: Malnutrition: moderate QUERY TEXT: PHYSICIAN'S DOCUMENTATION REQUEST Date of Query: 07/19/2024 06:07 AM EDT Patient Name: Jyoti Wooten Admit Date: 07/17/2024 Dear Bertha North PA, A review of the medical record indicates additional documentation may be needed. Please review below and update the documentation accordingly. Clinical Indicators: Height: 5ft Weight: 38kg BMI: 16.4 Other Clinical Notes Supporting Significance of the BMI: Moderately malnourished with BMI 16.4 with m ildly depleted subcutaneous fat and muscle mass. Adding Ensure BID to increase Kcals. If possible, please provide an associated diagnosis related to the abnormal BMI, such as: Underweight Malnutrition mild, moderate, severe Cachexia Anorexia Other (explain) Clinically unable to determine (explain) Thank you, Nella Espinoza, CCS, CDIS Use of terms such as suspected, likely, concern for, or probable (associated with a specific diagnosi s that is being evaluated, monitored, or treated as if it exists) are acceptable and can be coded in the inpatient se tting, when documented at the time of discharge. Please use your independent medical judgment in providing your response. THIS QUERY IS PART OF THE PERMANENT MEDICAL RECORD
[2024-07-19] MEDS: Famotidine 20 MG TABLET PO (20:28)
[2024-07-20 03:58] VITALS: BP 149/67; PULSE 72; RESP 16; TEMP 37.1; O2SAT 100
[2024-07-20] MEDS: Loperamide HCl 2 MG CAPSULE PO (04:39)
[2024-07-20] MEDS: Acetaminophen 325 MG TABLET 650 MG PO (04:39)
[2024-07-20 07:19] VITALS: BP 146/67; PULSE 69; RESP 18; TEMP 36.2; O2SAT 100
[2024-07-20] MEDS: amLODIPine Besylate 5 MG TABLET PO (08:17)
[2024-07-20] MEDS: Loratadine 10 MG TABLET PO (08:17)
[2024-07-20] MEDS: Aspirin Enteric Coated 81 MG TABLET.DR PO (08:17)
[2024-07-20] MEDS: Cholecalciferol (Vitamin D3) 25 MCG TABLET PO (08:17)
[2024-07-20] MEDS: Metoprolol Succinate ER 12.5 MG HALFTAB.ER.24H PO (08:17)
[2024-07-20] MEDS: 0.9 % Sodium Chloride Flush 3 ML SYRINGE IVFLUSH (08:23)
--- NOTE | 2024-07-20 09:50 | MHC.CM.PN ---
Pt is medically cleared for discharge to [facility] at [facility] today via BLS/Johann. Pt aware and in agreement with discharge plan, per her request, this CM called to update pts daughter/HCP Karie Castorena, voicemail left.
--- NOTE | 2024-07-20 10:40 | P.DS_ITS ---
DS: Providers Provider Date of Service: 07/20/24 Date of admission: 07/17/24 10:23 Date of discharge: 07/20/24 Primary care physician: Regina Cole MD Consults: 07/17/24 11:06 Consult to Gastroenterology Routine Consulting Provider: John Amaya Reason for consultation: pancolitis DS: Diagnosis Discharge Diagnosis (1) Colitis: Status: Acute DS: Summary Hospital Course Hospital Course: From H&P on the day of admission 84-year-old female presented to the ED via EMS for evaluation of low back pain x1.5 weeks. Patient was initially evaluated for symptoms on 07/11/2024. She was diagnosed with a UTI at that time and placed on levofloxacin. Four days later, she presented to our facility with worsening symptoms including left-sided flank pain and increased urinary frequency. She was discharged home with diagnosis of colitis and advised to continue levofloxacin. Reports worsening low back pain over the last 2 days. Reports pain to bilateral lower back, worse on the left. Reports resolution of urinary symptoms. Denies any fever or chills, dysuria or hematuria. Reports mild nausea at present without any vomiting. Admits to one episode of nonbloody diarrhea yesterday. She currently lives at home alone. In the ER, H&H is noted to be stable 9.6/31.7, sodium 130, potassium 2.9, negative urinalysis, abdomen and pelvic CT showed acute galeano colitis with rectal involvement. Patient received a dose of ampicillin, Flagyl, magnesium, potassium, Zofran. She will be admitted for further management and treatment of pancolitis. diarrhea imaging showed galeano colitis, initially treated with IV abx patient has a history of microscopic colitis. seen by GI. no new symptoms, no abdominal pain. changes on CT not new. no need for abx. C diff negative, GI panel negative white count trending down. tolerating diet. can continue prn imodium for control of chronic diarrhea. Dysphagia Chronic. Tolerating chopped diet. seen by GI - outpatient follow up for consid eration of repeat EGD Hyponatremia Likely secondary to dehydration. resolved with IV fluid Hypokalemia due to diarrhea and decreased p.o. intake. mag level ok. Resolved with oral replacement recent UTI repeat UA negative back pain no abdominal pain, pain left side lower back paraspinal muscles. lumbar spine xray showing likely chronic compression fracture deformities at T12 and T9. Likely muscular pain. responding to moist heat. continue prn hot packs. Patient was evaluated by Physical therapy who recommended short-term rehab. Time Attestation Discharge Coordination Time (in mins): 40 Quality: Safe Use of Opioids Does Pt have an Active Cancer Diagnosis on the Problem List?: No Quality: Stroke Does the patient have a stroke diagnosis?: No Physical Exam Vital Signs: Vital Signs: Last Vital Signs Temp 97.2 F 07/20/24 07:19 Pulse 69 07/20/24 07:19 Resp 18 07/20/24 07:19 BP 146/67 H 07/20/24 07:19 Pulse Ox 100 07/20/24 07:19 O2 Del Method Room Air 07/20/24 07:19 BMI result Body Mass Index 16.4 Appearing in no acute distress head is normocephalic atraumatic eyes pupils are PERRLA sclera is anicteric mouth throat mucous membranes are intact and moist neck is supple no lymphadenopathy, no JVD noted lung sounds are clear to auscultation heart regular rate rhythm, clear S1, S2 positive bowel sounds, abdomen is soft, nontender neuro patient is alert x3, no focal deficits DS: Data Data Completed and Pending Completed studies during hospitalization [Text1]: Procedures Transfusion of Nonautologous Red Blood Cells into Peripheral Vein, Percutaneous Approach (01/02/20) Labs on day of discharge: Preliminary micro results at discharge 07/17/24 10:30 Blood Culture - Preliminary Blood - Venous No growth after 48 hours. 07/17/24 07:44 Blood Culture - Preliminary Blood - Venous No growth after 48 hours. Discharge Plan Discharge Anticipated Discharge Date/Time: 07/20/24 10:39 Patient Disposition: Xfer SNF Discharge Diagnosis: diarrhea Referrals: [facility] [Outside] - 1 Week Regina Cole MD [Primary Care Provider] - 1 Week Discharge Medications: Continued famotidine 20 mg tablet 20 mg PO BEDTIME Qty: 90 0RF amlodipine 5 mg tablet 5 mg PO DAILY Qty: 90 1RF metoprolol succinate 25 mg tablet extended release 24 hr 12.5 mg PO DAILY 90 Days Qty: 45 3RF calcium carbonate [Calcium 600] 600 mg calcium (1,500 mg) Tablet 600 mg PO BID Qty: 180 4RF cholecalciferol (vitamin D3) 25 mcg (1,000 unit) capsule 25 mcg PO DAILY Qty: 90 3RF loratadine 10 mg Tablet 10 mg PO DAILY aspirin [Adult Low Dose Aspirin] 81 mg tablet,delayed release (DR/EC) 81 mg PO DAILY Discontinued levofloxacin 250 mg tablet 250 mg PO DAILY 10 Days Qty: 10 0RF Rx Instructions: End date 07/20/24 Discharge Orders: Discharge Order (Routine); Ordered 07/20/24 Ordered By: Jacquelyn Alston Diet: Advance to usual diet Activity on Discharge: As tolerated Stand Alone Forms: Patient Portal Discharge page Print Language: Arabic Care Plan Goals: See below Health Concerns: Chronic microscopic colitis Chronic diarrhea Hypokalemia resolved Plan of Treatment: P.r.n. Imodium for control of diarrhea Call to schedule outpatient follow-up appointment with GI for EGD Continue modified NDD 3 diet with dietary supplements Assessment: See discharge summary
[2024-07-20 11:35] VITALS: BP 149/65; PULSE 68; RESP 18; TEMP 36.3; O2SAT 100
== END 2024-07-20 12:25 | disposition skilled nursing facility (03) | DRG 392 ==
LOC: HO.ED 10:24 → HO.EDOVER 10:33 → HO.IMC 19:50
PROVIDERS: Physician Assistant Medical; Admitting Provider Internal Medicine; Emergency Provider Emergency Medicine; PCP Internal Medicine; Visit Provider Nurse Practitioner Acute Care
DX: K52.9 Noninfective gastroenteritis and colitis, unspecified (principal); E87.1 Hypo-osmolality and hyponatremia; E44.0 Moderate protein-calorie malnutrition; Z68.1 Body mass index [BMI] 19.9 or less, adult; R13.10 Dysphagia, unspecified; E87.6 Hypokalemia; D50.9 Iron deficiency anemia, unspecified; I10 Essential (primary) hypertension; K21.9 Gastro-esophageal reflux disease without esophagitis; Z87.440 Personal history of urinary (tract) infections; Z79.899 Other long term (current) drug therapy
CPT/HCPCS: 36415; 71045; 72100; 74176; 74177; 80048; 80053; 80076; 81001; 81003; 83605; 83690; 83735; 85025; 85027; 87040; 87086; 87493; 87507; 93005; 96374; 96375; 97162; 99285; J0131; J0295; J1171; J1836; J2270; J2405; J2543; J3475; J3480; J7120; Q9967

== ENCOUNTER → 2024-07-17 08:07 | Outpatient (BNV) | payer MEDICARE, SELFPAY | PROVIDERS: Admitting Provider Internal Medicine; Emergency Provider Emergency Medicine; PCP Internal Medicine; Visit Provider Internal Medicine | DX: E87.5 Hyperkalemia (principal) | CPT/HCPCS: 93010 ==

== ENCOUNTER → 2024-07-17 08:08 | Outpatient (BNV) | payer MEDICARE, SELFPAY | PROVIDERS: Emergency Provider Emergency Medicine; PCP Internal Medicine; Visit Provider Radiology Diagnostic Radiology | DX: K52.9 Noninfective gastroenteritis and colitis, unspecified (principal); R16.1 Splenomegaly, not elsewhere classified; M47.815 Spondylosis without myelopathy or radiculopathy, thoracolumbar region | CPT/HCPCS: 74177 ==

== ENCOUNTER → 2024-07-17 10:23 | Outpatient (BNV) | payer MEDICARE, SELFPAY | PROVIDERS: Admitting Provider Internal Medicine; Emergency Provider Emergency Medicine; PCP Internal Medicine; Visit Provider Nurse Practitioner Acute Care | DX: K52.9 Noninfective gastroenteritis and colitis, unspecified (principal); I10 Essential (primary) hypertension | CPT/HCPCS: 99223; 99232 ==

== ENCOUNTER → 2024-08-20 23:59 | Outpatient (BNV) | payer MEDICARE, SELFPAY | PROVIDERS: PCP Internal Medicine; Visit Provider Internal Medicine | DX: I10 Essential (primary) hypertension (principal); E87.6 Hypokalemia | CPT/HCPCS: G0180 ==

== ENCOUNTER 2024-08-27 11:52 | Outpatient (AMB) | payer MEDICARE, SELFPAY ==
--- NOTE | 2024-08-27 11:56 | A.OFFPC_ITS ---
Vital Signs 08/27/24 12:00 BP 118/82 Blood Pressure Location Rt brachial Position Sitting Pulse 70 Pulse Source Pulse Oximeter Temp 97.8 F Temp Source Oral Pulse Oximetry (%) 99 Oxygen Delivery Method Room Air Intake Visit Reasons: discharged Allergies codeine [CODEINE] Allergy (Intermediate, Verified 08/27/24 11:57) MOOD CHANGE, dizziness indigotindisulfonic acid [Indigo [place]] Allergy (Intermediate, Verified 08/27/24 11:57) increased blood pressure cephalexin [From KEFLEX] Allergy (Unknown, Verified 08/27/24 11:57) pt cannot remember reaction blue dye [BLUE DYE] Adverse Reaction (Intermediate, Verified 08/27/24 11:57) ELEVATED BLOOD PRESSURE lisinopril [LISINOPRIL] Adverse Reaction (Intermediate, Verified 08/27/24 11:57) cough, dry cough simvastatin [From ZOCOR] Adverse Reaction (Unknown, Verified 08/27/24 11:57) pt can't remember reaction Medication List - Last Reconciled 08/27/24 by Regina Cole MD amlodipine 5 mg PO DAILY aspirin (Adult Low Dose Aspirin) 81 mg PO DAILY calcium carbonate (Calcium 600) 600 mg PO BID cholecalciferol (vitamin D3) 25 mcg PO DAILY famotidine 20 mg PO BEDTIME loratadine 10 mg PO DAILY metoprolol succinate ER 12.5 mg (1/2 x 25 mg) PO DAILY 90 days Tobacco use date assessed: 08/27/24 Fall risk assessment: No Falls in past year Last assessed Fall Risk: 08/27/24 Dental Screening Dental Screen Date: 08/27/24 Did you have a dental visit in the last 12 months?: Yes Did you have a dental problem in the last 6 months where you did not have access to dental care?: No Was dental information given to patient?: Patient has dentist HPI discharged HPI Details Patient is 84-year-old female came in today for hospital discharge follow-up Date of admission 07/17/2024 date of discharge 07/20/2024 [facility] She presented to emergency room with a chief complaint of low back pain of 1-1/2 weeks She is also struggling with recurrent UTIs She was also seen on 07/11/2024 in emergency room and found to have colitis Patient lives at home alone Have chronic anemia she is established with Hematology for that In emergency room her sodium was 130 Potassium was 2.9 UA showed no signs of infection Abdomen and pelvic CT scan showed acute colitis with rectal involvement She was treated with antibiotics, magnesium supplement potassium supplement and was admitted for the treatment of pancolitis Her blood cultures remained negative And was eventually discharged without any new medications Currently patient is taking Famotidine 20 mg Amlodipine 5 mg Metoprolol 25 mg Vitamin-D supplement Loratadine 10 mg Aspirin She is back to her baseline, patient have a history of osteoporosis Has no appetite She has been chronically underweight And suffers from anemia of chronic disease She has seen Gastroenterology Dr. Amaya Patient is scheduled for upper scope on 09/06/2024 She is back to baseline, however still having pain left lower quadrant off and on at this time her abdomen exam is benign she is not having any pain Social History: - The patient lives with her family, inc luding her son Gideon, who provides support. - She has difficulty swallowing solid fo ods and relies primarily on a liquid diet including Ensure. Problem List - Pancolitis - Inflammation of the rectum - Spinal fractures - Osteoporosis - Kidney stones - Compromised kidney function - Recurrent urinary tract infections Diagnostic results - CT scan showing colon inflammation - Kidney stone identified on the right s brandy [facility] Dr. Amaya (nail galvanizer) Patient Instructions - [facility] - Maintain a food diary to identify trig gers for gastrointestinal symptoms. - Seek immediate care if abdominal pain worsens. Review of Systems General: No fever no chills neurological: No headaches no dizziness ear nose throat: No sore throat no hearing difficulty no ear pain cardiovascular: No syncope, no chest pain, no palpitations gastrointestinal: No nausea vomiting or diarrhea skin: No new complaints Physical Exam general: No acute distress, sitting in wheelchair with her son HEENT: No acute findings neck: Supple respiratory system: Able to talk in full sentences, no audible wheeze no stridor cardiovascular: S1-S2 RRR gastrointestinal: Abdomen is benign, but patient reports intermittent pain due to inflammation extremities: No new findings BUTT SAWYER: Alert awake oriented x3 motor sensory intact skin: Normal turgor [facility] Medical History Colitis HTN (hypertension) Cavitary lesion of lung History of breast cancer History of breast cancer Cholecystectomy planned Diarrhea Surgical History History of hip surgery History of mammogram History of excision of mass History of esophagogastroduodenoscopy (EGD) History of colonoscopy History of lumpectomy of right breast History of hysterectomy Family History Father CHF (congestive heart failure) Mother Diabetes mellitus Brother No problems noted. Sister No problems noted. Daughter No problems noted. Son No problems noted. Son No problems noted. Social History Household Members: None Housing: House Are you a primary healthcare receptionist to a significant other at home: No Do you presently have visiting nurse or other home services: No (Family assist with care of the home. Pt independent w/ADL's) Alcohol intake: never Patient Tobacco Use Status: Never used Tobacco e-Cigarette/Vaping Use: Never Used Second Hand Smoke Exposure: No Advance Directives Date on File: 12/16/19 service: No Current occupational status: retired Cognitive needs: No Hearing needs: No Vision needs: Yes Questionnaire Thrive Questionnaire Date Thrive assessed: 07/18/24 LIZZ-7 AMB Questionnaire LIZZ-7 Date LIZZ - 7 assessed: 04/02/24 Source: Developed by Drs. John Ndiaye, Naya Velasco, Mitch Lenz and colleagues, with an educational rhiannon from [employer]. Review of Systems Const Denies chills and Denies fever(s) ENT Denies epistaxis and Denies nasal discharge Card Denies chest pain Resp Denies chest congestion, Denies cough and Denies hemoptysis GI Denies nausea Skin/Breast Denies rash Neuro Reports no additional complaints Psych Reports no additional complaints Endo Reports no additional complaints Physical exam (Primary Care) Vital Signs: Last Vital Signs Temp 97.8 F 08/27/24 12:00 Pulse 70 08/27/24 12:00 BP 118/82 08/27/24 12:00 Pulse Ox 99 08/27/24 12:00 Oxygen Delivery Method Room Air 08/27/24 12:00 Tobacco/Smoking Status: Tobacco use Status Tobacco use date assessed 08/27/24 08/27/24 11:59 Patient Tobacco Use Status Never used Tobacco 08/27/24 11:59 e-Cigarette/Vaping Use Never Used 08/27/24 11:59 Thrive Assessment: Date of Thrive Assessment Date Thrive assessed 07/18/24 08/27/24 11:59 Const General: cooperative, comfortable and no acute distress Orientation/consciousness: patient oriented x3 HENMT Head: Yes normocephalic Eyes General: appearance normal, both eyes and all related structures Neck Neck: Yes supple Resp Effort & Inspection: normal respiratory effort, no cough and no stridor Cardio Rhythm: regular rhythm Heart sounds: S1 normal heart sound present and S2 normal heart sound present Skin General skin exam: turgor normal Neuro General: patient oriented x3, tone normal and moves all extremities Extrem Right lower extremity: no edema Left lower extremity: no edema Coding Level of Care Code Est Pt Level 5 (08018) Diagnoses Hospital discharge follow-up Z09 Pancolitis K52.9 Anemia in stage 3a chronic kidney disease N18.31; D63.1 Chronic kidney disease stage: stage 3 (moderate) Chronic kidney disease stage 3 subtype: stage 3a (GFR 45-59) Underweight R63.6 Loss of appetite R63.0 Age related osteoporosis, unspecified pathological fracture presence M81.0 Osteoporosis type: age-related Presence of current pathological fracture: unspecified Gastroesophageal reflux disease without esophagitis K21.9 Esophagitis presence: without esophagitis Time Spent (min) 40 Comment Reviewing chart/hospital notes/imaging/[id number] patient and son/coordination of care Assessment & Plan Assessment & Plan (1) Hospital discharge follow-up: Code(s): Z09 - Encounter for follow-up examination after completed treatment for conditions other than malignant neoplasm Category: Medical (2) Pancolitis: Code(s): K52.9 - Noninfective gastroenteritis and colitis, unspecified Category: Medical (3) Anemia in chronic kidney disease (CKD): Code(s): N18.9 - Chronic kidney disease, unspecified; D63.1 - Anemia in chronic kidney di sease Category: Medical Qualifiers: Chronic kidney disease stage: stage 3 (moderate) Chronic kidney disease stage 3 subtype: stage 3a (GFR 45-59) Qualified Code(s): N18.31 - Chronic kidney disease, stage 3a; D63.1 - Anemia in chronic kidney disease (4) Underweight: Code(s): R63.6 - Underweight Category: Medical (5) Loss of appetite: Code(s): R63.0 - Anorexia Category: Medical (6) Osteoporosis: Code(s): M81.0 - Age-related osteoporosis without current pathological fracture Category: Medical Qualifiers: Osteoporosis type: age-related Presence of current pathological fracture: unspecified Qualified Code(s): M81.0 - Age-related osteoporosis without current pathological fracture (7) GERD (gastroesophageal reflux disease): Code(s): K21.9 - Gastro-esophageal reflux disease without esophagitis Category: Medical Qualifiers: Esophagitis presence: without esophagitis Qualified Code(s): K21.9 - Gastro-esophageal reflux disease without esophagitis Plan Patient is 84-year-old female came in today for hospital discharge follow-up Date of admission 07/17/2024 date of discharge 07/20/2024 [facility] She presented to emergency room with a chief complaint of low back pain of 1-1/2 weeks She is also struggling with recurrent UTIs She was also seen on 07/11/2024 in emergency room and found to have colitis Patient lives at home alone Have chronic anemia she is established with Hematology for that In emergency room her sodium was 130 Potassium was 2.9 UA showed no signs of infection Abdomen and pelvic CT scan showed acute colitis with rectal involvement She was treated with antibiotics, magnesium supplement potassium supplement and was admitted for the treatment of pancolitis Her blood cultures remained negative And was eventually discharged without any new medications Currently patient is taking Famotidine 20 mg Amlodipine 5 mg Metoprolol 25 mg Vitamin-D supplement Loratadine 10 mg Aspirin She is back to her baseline, patient have a history of osteoporosis Has no appetite She has been chronically underweight And suffers from anemia of chronic disease She has seen Gastroenterology Dr. Amaya Patient is scheduled for upper scope on 09/06/2024 She is back to baseline, however still having pain left lower quadrant off and on at this time her abdomen exam is benign she is not having any pain Social History: - The patient lives with her family, including her son Gideon, who provides support. - She has difficulty swallowing solid foods and relies primarily on a liquid diet including Ensure. Problem List - Pancolitis - Inflammation of the rectum - Spinal fractures - Osteoporosis - Kidney stones - Compromised kidney function - Recurrent urinary tract infections Diagnostic results - CT scan showing colon inflammation - Kidney stone identified on the right side [facility] Dr. Amaya (nail galvanizer) Patient Instructions - Contact Dr. Amaya and schedule a follow-up appointment. - Maintain a food diary to identify triggers for gastrointestinal symptoms. - Seek immediate care if abdominal pain worsens.
[2024-08-27 12:00] VITALS: BP 118/82; PULSE 70; TEMP 36.6; O2SAT 99
== END 2024-08-27 12:21 | disposition home or self-care (01) ==
LOC: HO.HMCC 11:55
PROVIDERS: PCP Internal Medicine; Visit Provider Internal Medicine
DX: K52.9 Noninfective gastroenteritis and colitis, unspecified (principal); N18.31 Chronic kidney disease, stage 3a; D63.1 Anemia in chronic kidney disease; R63.6 Underweight; R63.0 Anorexia; Z09 Encounter for follow-up examination after completed treatment for conditions other than malignant neoplasm; M81.0 Age-related osteoporosis without current pathological fracture; K21.9 Gastro-esophageal reflux disease without esophagitis

== ENCOUNTER → 2024-08-27 11:52 | Outpatient (BNVA) | payer MEDICARE, SELFPAY | PROVIDERS: PCP Internal Medicine; Visit Provider Internal Medicine | DX: Z09 Encounter for follow-up examination after completed treatment for conditions other than malignant neoplasm (principal); K52.9 Noninfective gastroenteritis and colitis, unspecified; N18.31 Chronic kidney disease, stage 3a; D63.1 Anemia in chronic kidney disease; R63.6 Underweight; R63.0 Anorexia; M81.0 Age-related osteoporosis without current pathological fracture; K21.9 Gastro-esophageal reflux disease without esophagitis | CPT/HCPCS: 99212 ==

== ENCOUNTER 2024-09-06 07:36 | Day surgery (SDC) | payer MEDICARE, SELFPAY ==
--- OUTSIDE RECORDS SUMMARY | 2024-08-27 11:49 | XMS_ITS | Clinical Summary ---
Author Organization Unknown Care Team Providers Care Document Photographer Name Role Phone ELADIO OWENS, MAGDALENA Unavailable Unavailable PIPPA RN, OSKAR Unavailable Unavailab yenny WILLIS PT, GABE Unavailable Unavailable ROCIO TAX PROCESSOR, JOSE Unavailable Unavailable READING OT, NICA Unavailable Unavailable Payers Payer Name Policy Type Policy Number Effective Date Expira tion Date MEDICARE.NGS.PDGM [id number] Problems Condition Name Condition Details Condition Category Status Onset Date Resolution Date Last Treatment Date Treating Clinician Comments NONINFECTIVE GASTROENTERI TIS AND COLITIS, UNSPECIFIED Active 07-20 00:00: 00 ESSENTIAL (PRIMARY) HYPERTENSION Active 08-06 00:00: 00 GASTRO-ESOPH AGEAL REFLUX DISEASE WITHOUT ESOPHAGITIS Active 08-06 00:00: 00 HYPOKALEMIA Active 07-20 00:00: 00 AGE-RELATED OSTEOPOROSIS W/O CURRENT PATHOLOGICAL FRACTURE Active 08-06 00:00: 00 HYPO-OSMOLAL ITY AND HYPONATREMIA Active 08-06 00:00: 00 IRON DEFICIENCY ANEMIA, UNSPECIFIED Active 08-06 00:00: 00 DYSPHAGIA, UNSPECIFIED Active 07-20 00:00: 00 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 Active 08-06 00:00: 00 PERSONAL HISTORY OF MALIGNANT NEOPLASM OF BREAST Active 08-06 00:00: 00 PERSONAL HISTORY OF URINARY (TRACT) INFECTIONS Active 07-20 00:00: 00 Allergies, Adverse Reactions, Alerts Allergy Name Allergy Type Status Severity Reaction(s) Onset Date Inactive Date Treating Clinician Comments LISINOPRIL Propensity to adverse reactions Active 08-06 13:23: 35 CODEINE Propensity to adverse reactions Active 08-06 13:23: 52 KEFLEX Propensity to adverse reactions Active 08-06 13:24: 00 SIMVASTATIN Propensity to adverse reactions Active 08-06 13:24: 24 BLUE DYE Propensity to adverse reactions Active 08-06 13:24: 48 Medications Ordered Medication Name Filled Medication Name Start Date Stop Date Current Medication? Ordering Clinician Indication Dosage Frequency Signature (SIG) Comments Components levofloxaci n 250 mg tablet 07-10 00:00: 00 08-06 00:00 :00 No [id number] Per instruc tions EVERY DAY FOR 10 DAYS Per instructio ns EVERY DAY FOR 10 DAYS (route: oral) Med Classific ation: Anti-Infe ctive Agents Align (B.infantis ) 10.5 mg (10 million cell) chewable tablet 08-06 00:00: 00 Yes [id number] SUPPLEMENT 1 tablet DAILY 1 tablet DAILY (route: oral) Med Classific ation: Gastroint estinal Therapy Agents amlodipine 5 mg tablet 08-06 00:00: 00 Yes [id number] HIGH BLOOD PRESSURE 1 tablet DAILY 1 tablet DAILY (route: oral) Med Classific ation: Cardiovas cular Therapy Agents aspirin 81 mg tablet,monica yed release 08-06 00:00: 00 Yes [id number] HIGH LIPIDS 1 tablet DAILY 1 tablet DAILY (route: oral) Med Classific ation: Hematolog ical Agents Biotin Plus 5,000 mcg-10 mg tablet 08-06 00:00: 00 Yes [id number] SUPPLEMENT 1 tablet DAILY 1 tablet DAILY (route: oral) Med Classific ation: Alternati ve Therapy cholecalcif moshe (vitamin D3) 25 mcg (1,000 unit) tablet 08-06 00:00: 00 Yes [id number] SUPPLEMENT 1 tablet DAILY 1 tablet DAILY (route: oral) Med Classific ation: Electroly te Balance-N utritiona l Products famotidine 20 mg tablet 08-06 00:00: 00 Yes [id number] GERD 1 tablet BEDTIME 1 tablet BEDTIME (route: oral) Med Classific ation: Gastroint estinal Therapy Agents loratadine 10 mg tablet 08-06 00:00: 00 Yes [id number] SEASONAL ALLERGIES 1 tablet DAILY 1 tablet DAILY (route: oral) Med Classific ation: Respirato ry Therapy Agents metoprolol succinate ER 25 mg tablet,exte nded release 24 hr 08-06 00:00: 00 Yes [id number] IRREGULAR HEART BEAT 0.5 tablet DAILY 0.5 tablet DAILY (route: oral) Med Classific ation: Cardiovas cular Therapy Agents Tums 200 mg (as calcium carbonate 500 mg) chewable tablet 08-06 00:00: 00 Yes [id number] GERD 2 tablet 2 TIMES DAILY 2 tablet 2 TIMES DAILY (route: oral) Med Classific ation: Gastroint estinal Therapy Agents Tylenol Extra Strength 500 mg tablet 08-06 00:00: 00 Yes [id number] PAIN 2 tablet EVERY 8 HOURS 2 tablet EVERY 8 HOURS (route: oral) Med Classific ation: Analgesic , Anti-infl ammatory or Antipyret ic Vital Signs Vital Name Observation Time Observation Value Commen ts Temperature 2024-08-21 12:42:00.000 97.9 [degF] Temperature 2024-08-20 11:17:00.000 97.7 [degF] Temperature 2024-08-14 11:04:00.000 97.6 [degF] Temperature 2024-08-13 13:15:00.000 97.8 [degF] Temperature 2024-08-13 11:22:00.000 97.7 [degF] Temperature 2024-08-08 14:29:00.000 98.7 [degF] Temperature 2024-08-06 13:55:00.000 97.6 [degF] BMI (%) 2024-08-06 13:55:00.000 16 kg/m2 Height 2024-08-06 13:55:00.000 60 [in_us] Pulse 2024-08-21 12:42:00.000 62 /min Pulse 2024-08-20 11:17:00.000 70 /min Pulse 2024-08-14 11:04:00.000 67 /min Pulse 2024-08-13 13:15:00.000 64 /min Pulse 2024-08-13 11:22:00.000 67 /min Pulse 2024-08-08 14:29:00.000 66 /min Pulse 2024-08-06 13:55:00.000 57 /min O2 Saturation (%) 2024-08-21 12:42:00.000 98 % O2 Saturation (%) 2024-08-20 11:17:00.000 98 % O2 Saturation (%) 2024-08-14 11:04:00.000 99 % O2 Saturation (%) 2024-08-13 13:15:00.000 96 % O2 Saturation (%) 2024-08-13 11:22:00.000 100 % O2 Saturation (%) 2024-08-08 14:29:00.000 98 % O2 Saturation (%) 2024-08-06 13:55:00.000 100 % Respirations 2024-08-21 12:42:00.000 18 /min Respirations 2024-08-20 11:17:00.000 18 /min Respirations 2024-08-14 11:04:00.000 17 /min Respirations 2024-08-13 13:15:00.000 16 /min Respirations 2024-08-13 11:22:00.000 18 /min Respirations 2024-08-08 14:29:00.000 18 /min Respirations 2024-08-06 13:55:00.000 18 /min Weight (lbs) 2024-08-06 13:55:00.000 86 [lb_av] Systolic Blood Pressure 2024-08-21 12:42:00.000 110 mm [Hg] Systolic Blood Pressure 2024-08-20 11:17:00.000 105 mm [Hg] Systolic Blood Pressure 2024-08-14 11:04:00.000 94 mm[ Hg] Systolic Blood Pressure 2024-08-13 13:15:00.000 100 mm [Hg] Systolic Blood Pressure 2024-08-13 11:22:00.000 115 mm [Hg] Systolic Blood Pressure 2024-08-08 14:29:00.000 118 mm [Hg] Systolic Blood Pressure 2024-08-06 13:55:00.000 118 mm [Hg] Diastolic Blood Pressure 2024-08-21 12:42:00.000 56 mm [Hg] Diastolic Blood Pressure 2024-08-20 11:17:00.000 60 mm [Hg] Diastolic Blood Pressure 2024-08-14 11:04:00.000 50 mm [Hg] Diastolic Blood Pressure 2024-08-13 13:15:00.000 62 mm [Hg] Diastolic Blood Pressure 2024-08-13 11:22:00.000 60 mm [Hg] Diastolic Blood Pressure 2024-08-08 14:29:00.000 50 mm [Hg] Diastolic Blood Pressure 2024-08-06 13:55:00.000 58 mm [Hg] Plan of Treatment Planned Activity Planned Date Details Comments Future Scheduled Test FALL REDUC TION MANAGEMENT; RN TO ASSESS AND OBSERVE, USABILITY STRATEGIST/RESEARCH KENNEL SUPERVISOR TO OBSERVE FALL RISK FACTORS AND EDUCATE PATIENT/CAREGIVER ON STRATEGIES TO MINIMIZE THE RISK OF FALLING. [code = FALL REDUCTION MANAGEMENT; RN TO ASSESS AND OBSERVE, USABILITY STRATEGIST/RESEARCH KENNEL SUPERVISOR TO OBSERVE FALL RISK FACTORS AND EDUCATE PATIENT/CAREGIVER ON STRATEGIES TO MINIMIZE THE RISK OF FALLING.] Future Scheduled Test GENITOURIN BULMARO MANAGEMENT; RN TO ASSESS AND TEACH, USABILITY STRATEGIST/RESEARCH KENNEL SUPERVISOR TO OBSERVE AND TEACH RELATED TO ALTERED GENITOURINARY STATUS TO MINIMIZE COMPLICATIONS AND REDUCE HOSPITALIZATION. [code = GENITOURINARY MANAGEMENT; RN TO ASSESS AND TEACH, USABILITY STRATEGIST/RESEARCH KENNEL SUPERVISOR TO OBSERVE AND TEACH RELATED TO ALTERED GENITOURINARY STATUS TO MINIMIZE COMPLICATIONS AND REDUCE HOSPITALIZATION.] Future Scheduled Test URINARY TR ACT INFECTION MANAGEMENT; RN/RESEARCH KENNEL SUPERVISOR/USABILITY STRATEGIST TO PROVIDE SKILLED TEACHING AND SELF- CARE MANAGEMENT RELATED TO UTI TO MINIMIZE COMPLICATIONS AND REDUCE THE RISK OF HOSPITALIZATION. [code = URINARY TRACT INFECTION MANAGEMENT; RN/RESEARCH KENNEL SUPERVISOR/USABILITY STRATEGIST TO PROVIDE SKILLED TEACHING AND SELF- CARE MANAGEMENT RELATED TO UTI TO MINIMIZE COMPLICATIONS AND REDUCE THE RISK OF HOSPITALIZATION.] Future Scheduled Test RN TO OBSE RVE, ASSESS, EVALUATE, AND DEVELOP AN INDIVIDUALIZED PLAN OF CARE. AGENCY MAY ACCEPT ORDERS FROM CONSULTING PHYSICIANS. RN TO OBSERVE AND ASSESS, USABILITY STRATEGIST/RESEARCH KENNEL SUPERVISOR TO OBSERVE FOR RISK FOR FALLS AND INSTRUCT IN FALL PREVENTION, HOME SAFETY, MEDICATION MANAGEMENT, INFECTION PREVENTION, AND NUTRITION MANAGEMENT. RN/USABILITY STRATEGIST/RESEARCH KENNEL SUPERVISOR NURSE MAY PERFORM O2 SATURATION LEVEL ON ADMISSION AND PRN FOR RN TO ASSESS/USABILITY STRATEGIST TO OBSERVE PATIENT, WITH NOTIFICATION TO THE PHYSICIAN IF SATURATION IS 90% IN THE ABSENCE OF MORE SPECIFIC PARAMETERS FROM THE PHYSICIAN. AGENCY MAY PERFORM A RESUMPTION OF CARE VISIT FOLLOWING ANY HOSPITAL ADMISSION. RN/USABILITY STRATEGIST/RESEARCH KENNEL SUPERVISOR TO MONITOR CO-MORBID CONDITIONS LISTED ON THE PLAN OF CARE AND ANY NEW CONDITIONS THAT PRESENT THEMSELVES DURING THIS EPISODE TO IDENTIFY CHANGES AND INTERVENE TO MINIMIZE COMPLICATIONS. [code = RN TO OBSERVE, ASSESS, EVALUATE, AND DEVELOP AN INDIVIDUALIZED PLAN OF CARE. AGENCY MAY ACCEPT ORDERS FROM CONSULTING PHYSICIANS. RN TO OBSERVE AND ASSESS, USABILITY STRATEGIST/RESEARCH KENNEL SUPERVISOR TO OBSERVE FOR RISK FOR FALLS AND INSTRUCT IN FALL PREVENTION, HOME SAFETY, MEDICATION MANAGEMENT, INFECTION PREVENTION, AND NUTRITION MANAGEMENT. RN/USABILITY STRATEGIST/RESEARCH KENNEL SUPERVISOR NURSE MAY PERFORM O2 SATURATION LEVEL ON ADMISSION AND PRN FOR RN TO ASSESS/USABILITY STRATEGIST TO OBSERVE PATIENT, WITH NOTIFICATION TO THE PHYSICIAN IF SATURATION IS 90% IN THE ABSENCE OF MORE SPECIFIC PARAMETERS FROM THE PHYSICIAN. AGENCY MAY PERFORM A RESUMPTION OF CARE VISIT FOLLOWING ANY HOSPITAL ADMISSION. RN/USABILITY STRATEGIST/RESEARCH KENNEL SUPERVISOR TO MONITOR CO-MORBID CONDITIONS LISTED ON THE PLAN OF CARE AND ANY NEW CONDITIONS THAT PRESENT THEMSELVES DURING THIS EPISODE TO IDENTIFY CHANGES AND INTERVENE TO MINIMIZE COMPLICATIONS.] Future Scheduled Test GASTROINTE STINAL MANAGEMENT; RN TO ASSESS AND TEACH, RESEARCH KENNEL SUPERVISOR/USABILITY STRATEGIST TO OBSERVE AND TEACH RELATED TO ALTERED GASTROINTESTINAL STATUS TO MINIMIZE COMPLICATIONS AND REDUCE HOSPITALIZATION. [code = GASTROINTESTINAL MANAGEMENT; RN TO ASSESS AND TEACH, RESEARCH KENNEL SUPERVISOR/USABILITY STRATEGIST TO OBSERVE AND TEACH RELATED TO ALTERED GASTROINTESTINAL STATUS TO MINIMIZE COMPLICATIONS AND REDUCE HOSPITALIZATION.] Future Scheduled Test PAIN MANAG EMENT; RN TO ASSESS AND TEACH, RESEARCH KENNEL SUPERVISOR/USABILITY STRATEGIST TO OBSERVE AND TEACH AND PROVIDE EDUCATION ON PAIN MANAGEMENT TECHNIQUES. [code = PAIN MANAGEMENT; RN TO ASSESS AND TEACH, RESEARCH KENNEL SUPERVISOR/USABILITY STRATEGIST TO OBSERVE AND TEACH AND PROVIDE EDUCATION ON PAIN MANAGEMENT TECHNIQUES.] Future Scheduled Test PRN VISITS ; NUMBER OF RN/USABILITY STRATEGIST/RESEARCH KENNEL SUPERVISOR VISITS: 2 RN/USABILITY STRATEGIST/RESEARCH KENNEL SUPERVISOR TO PERFORM: ASSESSMENT FOR THE FOLLOWING REASONS: STATUS CHANGES [code = PRN VISITS; NUMBER OF RN/USABILITY STRATEGIST/RESEARCH KENNEL SUPERVISOR VISITS: 2 RN/USABILITY STRATEGIST/RESEARCH KENNEL SUPERVISOR TO PERFORM: ASSESSMENT FOR THE FOLLOWING REASONS: STATUS CHANGES] Future Scheduled Test RISK FOR H OSPITALIZATION; RN TO ASSESS/TEACH, RESEARCH KENNEL SUPERVISOR/USABILITY STRATEGIST TO OBSERVE/TEACH PATIENT/CAREGIVER ON RISK FOR HOSPITALIZATION/EMERGENCY ROOM VISITS, TEACH SIGNS AND SYMPTOMS THAT PUT PATIENT AT RISK, WHEN TO NOTIFY NURSE/PHYSICIAN OF COMPLICATIONS/DECLINE, AND WHEN TO CALL 911. [code = RISK FOR HOSPITALIZATION; RN TO ASSESS/TEACH, RESEARCH KENNEL SUPERVISOR/USABILITY STRATEGIST TO OBSERVE/TEACH PATIENT/CAREGIVER ON RISK FOR HOSPITALIZATION/EMERGENCY ROOM VISITS, TEACH SIGNS AND SYMPTOMS THAT PUT PATIENT AT RISK, WHEN TO NOTIFY NURSE/PHYSICIAN OF COMPLICATIONS/DECLINE, AND WHEN TO CALL 911.] Future Scheduled Test CARDIOVASC ULAR SYSTEM; RN TO ASSESS/TEACH, USABILITY STRATEGIST/RESEARCH KENNEL SUPERVISOR TO OBSERVE/TEACH RELATED TO ALTERED CARDIOVASCULAR STATUS TO MINIMIZE COMPLICATIONS AND REDUCE HOSPITALIZATION. [code = CARDIOVASCULAR SYSTEM; RN TO ASSESS/TEACH, USABILITY STRATEGIST/RESEARCH KENNEL SUPERVISOR TO OBSERVE/TEACH RELATED TO ALTERED CARDIOVASCULAR STATUS TO MINIMIZE COMPLICATIONS AND REDUCE HOSPITALIZATION.] Future Scheduled Test HYPERTENSI ON MANAGEMENT; RN TO ASSESS AND TEACH, USABILITY STRATEGIST/RESEARCH KENNEL SUPERVISOR TO OBSERVE AND TEACH WARNING SIGNS AND SYMPTOMS TO AVOID HOSPITALIZATION. [code = HYPERTENSION MANAGEMENT; RN TO ASSESS AND TEACH, USABILITY STRATEGIST/RESEARCH KENNEL SUPERVISOR TO OBSERVE AND TEACH WARNING SIGNS AND SYMPTOMS TO AVOID HOSPITALIZATION.] Future Scheduled Test SKIN INTEG RITY RN TO ASSESS AND TEACH, USABILITY STRATEGIST/RESEARCH KENNEL SUPERVISOR TO OBSERVE AND TEACH INTEGUMENTARY STATUS TO IDENTIFY CHANGES AND INTERVENE TO MINIMIZE COMPLICATIONS. PROVIDE SKILLED TEACHING OF GENERAL WOUND AND SKIN CARE AND PREVENTION RELATED TO ACTUAL ALTERED SKIN INTEGRITY [code = SKIN INTEGRITY RN TO ASSESS AND TEACH, USABILITY STRATEGIST/RESEARCH KENNEL SUPERVISOR TO OBSERVE AND TEACH INTEGUMENTARY STATUS TO IDENTIFY CHANGES AND INTERVENE TO MINIMIZE COMPLICATIONS. PROVIDE SKILLED TEACHING OF GENERAL WOUND AND SKIN CARE AND PREVENTION RELATED TO ACTUAL ALTERED SKIN INTEGRITY ] Future Scheduled Test URINARY MO LECULAR TESTING PROTOCOL UP TO 2 PRN RN/USABILITY STRATEGIST/RESEARCH KENNEL SUPERVISOR VISITS MAY BE PERFORMED FOR S/S OF UTI. RN TO ASSESS, USABILITY STRATEGIST/RESEARCH KENNEL SUPERVISOR TO OBSERVE INITIATION OF UTI PROTOCOL. RN/RESEARCH KENNEL SUPERVISOR/USABILITY STRATEGIST TO INSTRUCT PATIENT AND/OR CAREGIVER ON S/S OF UTI TO REPORT TO RN/RESEARCH KENNEL SUPERVISOR/USABILITY STRATEGIST IF NEW OR WORSENING SYMPTOMS. DRINK PLENTY OF WATER THROUGHOUT THE DAY TO MAINTAIN HYDRATION (UNLESS CONTRAINDICATED.) URINATE WHEN THE URGE IS FELT, DO NOT WAIT. WASH GENITALS DAILY. WIPE FROM FRONT TO BACK AFTER HAVING A BOWEL MOVEMENT. RN/RESEARCH KENNEL SUPERVISOR/USABILITY STRATEGIST TO OBTAIN MOLECULAR URINE TESTING RN/RESEARCH KENNEL SUPERVISOR/USABILITY STRATEGIST TO OBTAIN U/A WITH REFLEX TO UTI PANEL (MOLECULAR) VIA CLEAN CATCH URINE AND IF UNABLE TO OBTAIN MAY PERFORM AN IN AND OUT CATH. IF PATIENT HAS INDWELLING CATHETER MAY OBTAIN FROM SAMPLING PORT. NOTIFY PROVIDER OF RESULTS AND OBTAIN FURTHER ORDERS. [code = URINARY MOLECULAR TESTING PROTOCOL UP TO 2 PRN RN/USABILITY STRATEGIST/RESEARCH KENNEL SUPERVISOR VISITS MAY BE PERFORMED FOR S/S OF UTI. RN TO ASSESS, USABILITY STRATEGIST/RESEARCH KENNEL SUPERVISOR TO OBSERVE INITIATION OF UTI PROTOCOL. RN/RESEARCH KENNEL SUPERVISOR/USABILITY STRATEGIST TO INSTRUCT PATIENT AND/OR CAREGIVER ON S/S OF UTI TO REPORT TO RN/RESEARCH KENNEL SUPERVISOR/USABILITY STRATEGIST IF NEW OR WORSENING SYMPTOMS. DRINK PLENTY OF WATER THROUGHOUT THE DAY TO MAINTAIN HYDRATION (UNLESS CONTRAINDICATED.) URINATE WHEN THE URGE IS FELT, DO NOT WAIT. WASH GENITALS DAILY. WIPE FROM FRONT TO BACK AFTER HAVING A BOWEL MOVEMENT. RN/RESEARCH KENNEL SUPERVISOR/USABILITY STRATEGIST TO OBTAIN MOLECULAR URINE TESTING RN/RESEARCH KENNEL SUPERVISOR/USABILITY STRATEGIST TO OBTAIN U/A WITH REFLEX TO UTI PANEL (MOLECULAR) VIA CLEAN CATCH URINE AND IF UNABLE TO OBTAIN MAY PERFORM AN IN AND OUT CATH. IF PATIENT HAS INDWELLING CATHETER MAY OBTAIN FROM SAMPLING PORT. NOTIFY PROVIDER OF RESULTS AND OBTAIN FURTHER ORDERS.] Future Scheduled Test MEDICATION MANAGEMENT; RN/USABILITY STRATEGIST/RESEARCH KENNEL SUPERVISOR TO REVIEW MEDICATIONS FOR INTERACTIONS, EFFECTIVENESS OF DRUG THERAPY, AND SIGNS/SYMPTOMS OF ADVERSE REACTIONS. MAY INSTRUCT AND REINFORCE MEDICATION TEACHING RELATED TO THE USE OF MEDICATIONS, DOSAGE, FREQUENCY, PURPOSE, SIDE EFFECTS, AND TO REPORT COMPLICATIONS. [code = MEDICATION MANAGEMENT; RN/USABILITY STRATEGIST/RESEARCH KENNEL SUPERVISOR TO REVIEW MEDICATIONS FOR INTERACTIONS, EFFECTIVENESS OF DRUG THERAPY, AND SIGNS/SYMPTOMS OF ADVERSE REACTIONS. MAY INSTRUCT AND REINFORCE MEDICATION TEACHING RELATED TO THE USE OF MEDICATIONS, DOSAGE, FREQUENCY, PURPOSE, SIDE EFFECTS, AND TO REPORT COMPLICATIONS.] Future Scheduled Test AGENCY MAY PERFORM A RESUMPTION OF CARE VISIT FOLLOWING ANY HOSPITAL ADMISSION. OT TO EVALUATE, OBSERVE / ASSESS, AND MONITOR, MEL TO OBSERVE AND MONITOR, PROVIDE SKILLED THERAPEUTIC INTERVENTION, ACTIVITY, EDUCATION, AND TRAINING TO ADDRESS; TOILETING HYGIENE (OT/MEL) TOILET TRANSFER (OT/MEL) HOME ACTIVITY / EXERCISE PROGRAM (OT/COLOR PASTE MIXING SUPERVISOR) FEAR OF FALLING (OT/MEL) POSTURAL CONTROL/BALANCE (OT/COLOR PASTE MIXING SUPERVISOR) THERAPEUTIC EXERCISE (OT/COLOR PASTE MIXING SUPERVISOR) OT/MEL TO MONITOR AND EDUCATE ON OXYGEN SATURATION DURING ADLS/IADLS, NOTIFY PHYSICIAN AND/OR THE RN CLINICAL LAY OUT FORMER FOR PHYSICIAN NOTIFICATION AND IF O2 SATS BELOW 90% AFTER 10 MIN OF REST. OT/MEL MAY EDUCATE ON PAIN MANAGEMENT CLINICALLY INDICATED. OT/MEL TO MONITOR FOR SIGNS AND SYMPTOMS OF UTI AND EDUCATE PATIENT TO MINIMIZE RISK OF DEVELOPING A UTI. [code = AGENCY MAY PERFORM A RESUMPTION OF CARE VISIT FOLLOWING ANY HOSPITAL ADMISSION. OT TO EVALUATE, OBSERVE / ASSESS, AND MONITOR, MEL TO OBSERVE AND MONITOR, PROVIDE SKILLED THERAPEUTIC INTERVENTION, ACTIVITY, EDUCATION, AND TRAINING TO ADDRESS; TOILETING HYGIENE (OT/COLOR PASTE MIXING SUPERVISOR) TOILET TRANSFER (OT/MEL) HOME ACTIVITY / EXERCISE PROGRAM (OT/COLOR PASTE MIXING SUPERVISOR) FEAR OF FALLING (OT/COLOR PASTE MIXING SUPERVISOR) POSTURAL CONTROL/BALANCE (OT/MEL) THERAPEUTIC EXERCISE (OT/MEL) OT/COLOR PASTE MIXING SUPERVISOR TO MONITOR AND EDUCATE ON OXYGEN SATURATION DURING ADLS/IADLS, NOTIFY PHYSICIAN AND/OR THE RN CLINICAL LAY OUT FORMER FOR PHYSICIAN NOTIFICATION AND IF O2 SATS BELOW 90% AFTER 10 MIN OF REST. OT/COLOR PASTE MIXING SUPERVISOR MAY EDUCATE ON PAIN MANAGEMENT CLINICALLY INDICATED. OT/MEL TO MONITOR FOR SIGNS AND SYMPTOMS OF UTI AND EDUCATE PATIENT TO MINIMIZE RISK OF DEVELOPING A UTI.] Goal Patient Goal - GET BETTER Goal Provider Goal - PATIENT/CAREGIVER WILL VERBALIZE/DEMONSTRATE UNDERSTANDING OF FALL RISK FACTORS AND IMPLEMENT STRATEGIES TO MINIMIZE FALL RISK. PATIENT/CAREGIVER WILL VERBALIZE/DEMONSTRATE AN ABILITY TO ADHERE TO FALL REDUCTION SELF-MANAGEMENT AND LIFE-STYLE CHANGES BY EOE Goal Provider Goal - PATIENT / CAREGIVER WILL VERBALIZE/DEMONSTRATE UNDERSTANDING OF MEASURES TO MANAGE ALTERED GENITOURINARY STATUS BY END OF EPISODE. Goal Provider Goal - PATIENT/CAREGIVER WILL VERBALIZE/DEMONSTRATE UNDERSTANDING OF CARE AND MANAGEMENT OF URINARY TRACT INFECTION BY EOE. Goal Provider Goal - A PLAN OF CARE WILL BE ESTABLISHED THAT MEETS THE PATIENTS NEEDS. PATIENT WILL DEMONSTRATE OXYGEN SATURATION WITHIN NORMAL LIMITS OR PATIENTS OPTIMAL LEVEL ESTABLISHED BY THE PHYSICIAN THROUGHOUT CARE. CHANGES TO CO-MORBID CONDITIONS AND ANY NEW CONDITIONS WILL BE IDENTIFIED AND REPORTED TO THE PHYSICIAN. Goal Provider Goal - PATIENT / CAREGIVER WILL VERBALIZE/DEMONSTRATE UNDERSTANDING OF MEASURES TO MANAGE ALTERED GASTROINTESTINAL STATUS BY END OF EPISODE. Goal Provider Goal - PATIENT / CAREGIVER WILL VERBALIZE / DEMONSTRATE UNDERSTANDING OF PAIN CONTROL MEASURES BY EOE Goal Provider Goal - Goal Provider Goal - PATIENT/CAREGIVER WILL VERBALIZE UNDERSTANDING OF SIGNS AND SYMPTOMS THAT PUT THE PATIENT AT RISK FOR HOSPITALIZATION /EMERGENCY ROOM VISITS, WHEN TO NOTIFY NURSE/PHYSICIAN OF COMPLICATIONS/DECLINE AND WHEN TO CALL 911. Goal Provider Goal - PATIENT / CAREGIVER WILL VERBALIZE/DEMONSTRATE UNDERSTANDING OF MEASURES TO MANAGE ALTERED CARDIOVASCULAR STATUS BY EOE. Goal Provider Goal - PATIENT / CAREGIVER WILL VERBALIZE/DEMONSTRATE AN ABILITY TO ADHERE TO SELF-MANAGEMENT OF HTN TO MINIMIZE COMPLICATIONS AND AVOID HOSPITALIZATION BY END OF EPISODE. Goal Provider Goal - CHANGES IN SKIN INTEGRITY STATUS WILL BE IDENTIFIED AND REPORTED TO THE PHYSICIAN FOR PROMPT INTERVENTION. PATIENT / CAREGIVER WILL VERBALIZE/DEMONSTRATE ADEQUATE KNOWLEDGE OF INTEGUMENTARY STATUS AND APPROPRIATE MEASURES TO PROMOTE SKIN INTEGRITY AND PREVENT INJURY BY EOE Goal Provider Goal - PATIENT WILL DEMONSTRATE IMPROVEMENT IN S/S OF UTI TO AVOID HOSPITALIZATION. Goal Provider Goal - PATIENT/CAREGIVER TO VERBALIZE, AND CONSISTENTLY DEMONSTRATE EFFECTIVE, SAFE MANAGEMENT OF MEDICATION INCLUDING KNOWLEDGE OF EFFECTIVENESS, POTENTIAL SIDE EFFECTS AND DRUG REACTIONS AND WHEN TO CONTACT THE APPROPRIATE CARE PROVIDER. PATIENT/CAREGIVER WILL BE ABLE TO VERBALIZE UNDERSTANDING OF MEDICATION REGIMEN AND ACCURATELY TAKE MEDICATIONS PRESCRIBED WITHOUT ADVERSE EFFECTS BY EOE Goal Provider Goal - OT LTG: PATIENT WILL DEMONSTRATE IMPROVED ABILITY TO PERFORM TOILET HYGIENE AND REDUCE THE RISK OF DEVELOPING A UTI FROM SBA TO IND WITHIN 6 WEEKS. OT LTG: PATIENT WILL DEMONSTRATE IMPROVED ABILITY TO PERFORM TOILET TRANSFERS TO REDUCE FALL RISK AND RISK OF INCONTINENCE AND UTI DEVELOPMENT FROM MIN A TO IND WITHIN 6 WEEKS. OT LTG: PATIENT/CAREGIVER WILL BE ABLE TO DEMONSTRATE BUE STRENGTH EXERCISES / ACTIVITIES FOR IMPROVED INDEPENDENCE WITH TRANSFERS FROM UNABLE TO INDEPENDENT WITHIN 6 WEEKS OT LTG: PATIENT WILL DEMONSTRATE DECREASED FEAR OF FALLING DURING ADL/IADL TASKS EVIDENCED BY A DECREASE IN FES-I SCORE FROM 43 TO 35 WITHIN 6 WEEKS OT LTG: PATIENT WILL DEMONSTRATE IMPROVED POSTURAL CONTROL AND DECREASED FALL RISK EVIDENCED BY AN IMPROVEMENT IN FUNCTIONAL REACH SCORE FROM 2 INCHES TO 6 INCHES WITHIN 6 WEEKS. OT LTG: PATIENT WILL DEMONSTRATE IMPROVED DYNAMIC STANDING BALANCE EVIDENCE BY AN IMPROVEMENT FROM FAIR TO GOOD + DYNAMIC STANDING BALANCE WITHIN 6 WEEKS IN ORDER TO DECREASE RISK OF FALLING. OT LTG: PATIENT WILL DEMONSTRATE IMPROVED BUE MUSCLE STRENGTH EVIDENCED BY AN IMPROVEMENT IN MMT/FUNCTIONAL STRENGTH FROM 3+/5 TO 4+/5 WITHIN 6 WEEKS. OT LTG: PATIENT WILL MAINTAIN OXYGEN SATURATION WITHIN PHYSICIAN ORDERED PARAMETERS THROUGHOUT THE EPISODE OF CARE. OT LTG: PATIENT WILL DEMONSTRATE UNDERSTANDING OF PAIN MANAGEMENT TECHNIQUES NEEDED DURING EPISODE OF CARE. OT GOAL: PATIENT WILL NOT EXHIBIT SIGNS AND SYMPTOMS OF UTI THROUGHOUT THE EPISODE OF CARE. Encounters Start Date/Time End Date/Time Encounter Type Admission Type Attending [facility] Facility Care Department Encounter ID Discharge Date Discharge Status Discharge Condition Discharge Reason Percent Goals Met 2024-08-06 00:00:00 2024-10-04 00:00:00 Outpatient NEW ADMISSION [facility] [id number] 20.51
[2024-09-04 13:38] VITALS: BMI 17.0
--- NOTE | 2024-09-04 13:59 | P.CONAN_ITS ---
HPI - Anesthesia Eval Consult details Narrative: 84yo F for Upper Endoscopy with Balloon Dilitation PMFSH Active Problems Active Problems: All Active Problems Loss of appetite (Acute) Underweight (Acute) Pancolitis (Acute) Recurrent cystitis (Acute) Acute cystitis with hematuria (Acute) Vertigo (Acute) Medicare annual wellness visit, initial (Acute) Splenic infarction (Acute) Cystitis, acute (Acute) Crackling sound in right ear (Acute) Achalasia of the cricopharyngeus muscle (Acute) Sore throat (Acute) Difficulty swallowing pills (Acute) Pain in right ear (Acute) Impacted cerumen, right ear (Acute) Lumbar back pain (Acute) Chronic anemia (Acute) Chronic colitis (Acute) History of breast cancer (Acute) Excessive thirst (Acute) Osteoporosis (Acute) Upper respiratory tract infection (Acute) Hospital discharge follow-up (Acute) Risk for falls (Acute) Trochanteric fracture of left femur (Acute) Right otitis media (Acute) Dry skin (Acute) Atelectasis of right lung (Acute) Breast cancer (Acute) Anemia in chronic kidney disease (CKD) (Acute) Hypocalcemia (Acute) GERD (gastroesophageal reflux disease) (Acute) Hyperlipidemia (Acute) Sepsis (Acute) UTI (urinary tract infection) (Acute) Community acquired pneumonia (Acute) Metabolic acidosis (Acute) Dehydration (Acute) Hypovolemia (Acute) Cavitary lesion of lung (Acute) History of breast cancer (Acute) Past Medical History Medical History Hyperlipidemia GERD (gastroesophageal reflux disease) Colitis HTN (hypertension) Cavitary lesion of lung History of breast cancer Diarrhea Family History Family History Father CHF (congestive heart failure) Mother Diabetes mellitus Brother No problems noted. Sister No problems noted. Daughter No problems noted. Son No problems noted. Son No problems noted. Family history of problems with anesthesia: No Surgical History Surgical History History of hip surgery History of mammogram History of excision of mass History of esophagogastroduodenoscopy (EGD) History of colonoscopy History of lumpectomy of right breast History of hysterectomy History of Problems with Anesthesia: No Social History Social History Household Members: None Housing: House Are you a primary home health care case manager to a significant other at home: No Do you presently have visiting nurse or other home services: No Alcohol intake: never Patient Tobacco Use Status: Never used Tobacco e-Cigarette/Vaping Use: Never Used Second Hand Smoke Exposure: No Have you been hit, kicked, punched, or otherwise hurt by someone within the past year? If so, by whom?: No Advance Directives: No Advance Directives Information Provided: Yes Advance Directives Date on File: 12/16/19 Patient : No Poor oral hygiene: No service: No Current occupational status: retired Cognitive needs: No Hearing needs: No Vision needs: Yes Meds Allergies Allergy/AdvReac Type Severity Reaction Status Date / Time codeine (CODEINE) Allergy Intermediate MOOD Verified 09/06/24 08:12 CHANGE, dizziness indigotindisulfonic acid Allergy Intermediate increased Verified 09/06/24 08:12 (Indigo [place]) blood pressure cephalexin (From KEFLEX) Allergy Unknown pt cannot Verified 09/06/24 08:12 remember reaction lisinopril (LISINOPRIL) AdvReac Intermediate dry cough Verified 09/06/24 08:12 simvastatin (From ZOCOR) AdvReac Unknown pt can't Verified 09/06/24 08:12 remember reaction Home Medications ?Medication ?Instructions ?Recorded ?Confirmed ?Last Taken ?Type aspirin 81 mg tablet,delayed 81 mg PO DAILY 01/20/21 0 09/04/24 08/30/24 History release (Adult Low Dose Aspirin) loratadine 10 mg tablet 10 mg PO DAILY 07/17/24 06/2 08/0407/15/24 History Exam Height,Weight and Vital Signs: Height 5 ft 1 in Weight 40.823 kg Pertinent Lab Results Pertinent Lab Results: Laboratory Tests 08/02/24 08/29/24 14:30 13:45 WBC 6.1 Hgb 10.8 L Hct 37.2 Plt Count 204 Sodium 138 Potassium 4.3 Chloride 102 Carbon Dioxide 26 BUN 18 H Creatinine 0.93 Narrative Narrative: EKG 07/2024 Vent. Rate : 75 BPM Atrial Rate : 75 BPM P-R Int : 150 ms QRS Dur : 82 ms QT Int : 410 ms P-R-T Axes : 18 -19 43 degrees QTcB Int : 457 ms Normal sinus rhythm Normal ECG When compared with ECG of 21-Nov-2022 11:05, Questionable change in QRS axis CT abdomen pelvis w IV con IMPRESSION: 1. Acute pancolitis, with rectal involvement. There is also involvement of the distal terminal ileum. This could be infectious and/or inflammatory. 2. Splenomegaly, with irregular splenic lesions in the lateral inferior spleen as described, essentially unchanged from 03/27/2023 and consistent with splenic infarcts. 3. Stable changes of left hepatectomy. Biliary gas present, likely from prior sphincterotomy. 4. Severe calcific atheromatous changes of the aorta and iliac arteries. No aneurysm. 5. Numerous additional ancillary findings as discussed in the body of the report. Assessment and Plan Assessment Anesthesia Assessment: Chart Reviewed Final Anesthetic Review Family History of Problems with Anesthesia: No History of Problems with Anesthesia: No
[2024-09-06] MEDS: Lactated Ringers 1,000 ML 100 ML IVCONT (08:03)
[2024-09-06 08:08] VITALS: BP 123/50; PULSE 74; RESP 18; TEMP 36.4; O2SAT 100
[2024-09-06 08:09] VITALS: BMI 15.0
--- NOTE | 2024-09-06 08:53 | P.CONAN_ITS ---
[facility] Active Problems Active Problems: All Active Problems (Updated 09/04/24 @ 13:40 by Ria Tang RN) Loss of appetite (Acute) Underweight (Acute) Pancolitis (Acute) Recurrent cystitis (Acute) Acute cystitis with hematuria (Acute) Vertigo (Acute) Medicare annual wellness visit, initial (Acute) Splenic infarction (Acute) Cystitis, acute (Acute) Crackling sound in right ear (Acute) Achalasia of the cricopharyngeus muscle (Acute) Sore throat (Acute) Difficulty swallowing pills (Acute) Pain in right ear (Acute) Impacted cerumen, right ear (Acute) Lumbar back pain (Acute) Chronic anemia (Acute) Chronic colitis (Acute) History of breast cancer (Acute) Excessive thirst (Acute) Osteoporosis (Acute) Upper respiratory tract infection (Acute) Hospital discharge follow-up (Acute) Risk for falls (Acute) Trochanteric fracture of left femur (Acute) Right otitis media (Acute) Dry skin (Acute) Atelectasis of right lung (Acute) Breast cancer (Acute) Anemia in chronic kidney disease (CKD) (Acute) Hypocalcemia (Acute) GERD (gastroesophageal reflux disease) (Acute) Hyperlipidemia (Acute) Sepsis (Acute) UTI (urinary tract infection) (Acute) Community acquired pneumonia (Acute) Metabolic acidosis (Acute) Dehydration (Acute) Hypovolemia (Acute) Cavitary lesion of lung (Acute) History of breast cancer (Acute) Past Medical History Medical History Hyperlipidemia GERD (gastroesophageal reflux disease) Colitis HTN (hypertension) Cavitary lesion of lung History of breast cancer Diarrhea Functional capacity: independent ambulation Patient : No Family History Family History Father CHF (congestive heart failure) Mother Diabetes mellitus Brother No problems noted. Sister No problems noted. Daughter No problems noted. Son No problems noted. Son No problems noted. Family history of problems with anesthesia: No Surgical History Surgical History History of hip surgery History of mammogram History of excision of mass History of esophagogastroduodenoscopy (EGD) History of colonoscopy History of lumpectomy of right breast History of hysterectomy History of Problems with Anesthesia: No Social History Social History Household Members: None Housing: House Are you a primary wild animal caretaker to a significant other at home: No Do you presently have visiting nurse or other home services: No Alcohol intake: never Patient Tobacco Use Status: Never used Tobacco e-Cigarette/Vaping Use: Never Used Second Hand Smoke Exposure: No Have you been hit, kicked, punched, or otherwise hurt by someone within the past year? If so, by whom?: No Advance Directives: No Advance Directives Information Provided: Yes Advance Directives Date on File: 12/16/19 Poor oral hygiene: No service: No Current occupational status: retired Cognitive needs: No Hearing needs: No Vision needs: Yes Meds Allergies Allergy/AdvReac Type Severity Reaction Status Date / Time codeine (CODEINE) Allergy Intermediate MOOD Verified 09/06/24 08:12 CHANGE, dizziness indigotindisulfonic acid Allergy Intermediate increased Verified 09/06/24 08:12 (Indigo [place]) blood pressure cephalexin (From KEFLEX) Allergy Unknown pt cannot Verified 09/06/24 08:12 remember reaction lisinopril (LISINOPRIL) AdvReac Intermediate dry cough Verified 09/06/24 08:12 simvastatin (From ZOCOR) AdvReac Unknown pt can't Verified 09/06/24 08:12 remember reaction Active Medications: Current Medications Lactated Ringer's (Lr) 1,000 mls @ 100 mls/hr IVCONT .Q10H [id number] Last Admin: 09/06/24 08:03 Dose: 100 mls/hr Home Medications ?Medication ?Instructions ?Recorded ?Confirmed ?Last Taken ?Type aspirin 81 mg tablet,delayed 81 mg PO DAILY 01/20/21 0 09/04/24 07/15/24 History release (Adult Low Dose Aspirin) loratadine 10 mg tablet 10 mg PO DAILY 07/17/24 06/2 08/0407/15/24 History Exam Height,Weight and Vital Signs: Height 5 ft 1 in Weight 36.015 kg Last Vital Signs Temp 97.6 F 09/06/24 08:08 Pulse 74 09/06/24 08:08 Resp 18 09/06/24 08:08 BP 123/50 L 09/06/24 08:08 Pulse Ox 100 09/06/24 08:08 O2 Del Method Room Air 09/06/24 08:08 Airway Mallampati Class: II TM Dist: >3cm Neck ROM: Full Heart: RRR Lungs: CTA Assessment and Plan Assessment Anesthesia Assessment: Anesthesia Plan Discussed Final Anesthetic Review Family History of Problems with Anesthesia: No History of Problems with Anesthesia: No NPO: Yes ASA Class: III Final Preanesthetic Review: Meds/Allgs Chart Reviewed, Consent Obtained/Reviewed and Anes Risks/Benef Reviewed Patient Risk: Intermediate Procedure Risk: Low Anesthetic Plan Anesthetic Plan: MAC: Disposition: Standard PACU
[2024-09-06 09:00] VITALS: BP 121/55; PULSE 77; RESP 16; TEMP 36.6; O2SAT 100
--- NOTE | 2024-09-06 09:09 | P.BOP_ITS ---
Brief Operative Note Date of Service: 09/06/24 Pre-op diagnosis: Dysphagia Post-op diagnosis: other (Proximal Esophageal Stricture, R/O EoE, Hiatal hernia, Gastric ulcer, Gastritis) Procedure: EGD with Balloon dilation from 8 to 11 mm, and biopsies Surgeon: John Amaya MD Anesthesia: MAC Was an Protective Services Officer used for this Procedure?: No Estimated blood loss (mL): 2.0 Pathology: other (A. Gastric antrum B. Gastric ulcer C. Esophagus at 20cm) Condition: stable Disposition: PACU
[2024-09-06 09:15] VITALS: BP 129/55; PULSE 68; RESP 16; O2SAT 100
[2024-09-06 09:30] VITALS: BP 140/56; PULSE 65; RESP 16; TEMP 36.6; O2SAT 100
--- NOTE | 2024-09-06 09:31 | OP_ITS ---
DATE OF SERVICE: 09/06/2024 SURGEON: John Amaya MD INDICATIONS: The patient presents for evaluation of dysphagia. Full consent was obtained from her for this including risks of bleeding and perforation. PREOPERATIVE DIAGNOSIS: Dysphagia and known history of proximal esophageal stricture. POSTOPERATIVE DIAGNOSIS: Dysphagia and known history of proximal esophageal stricture, hiatal hernia, small gastric ulcer, gastritis. Rule out eosinophilic esophagitis. PROCEDURE PERFORMED: Esophagogastroduodenoscopy with balloon dilation of very proximal esophageal stricture and biopsies. ESTIMATED BLOOD LOSS: COMPLICATIONS: ANESTHESIA: Monitored anesthesia care. ASSISTANTS: SPECIMENS: DESCRIPTION OF PROCEDURE: The patient was placed in the left lateral decubitus position. The Olympus video gastroscope was passed in the posterior oropharynx. With insufflation of air, I could see the upper esophageal sphincter and immediately at that level or immediately beneath it, was a fibrotic appearing stricture. With insufflation of air I could see the lumen, but I could not pass the scope. When I did her procedure last time, I was able to pop the scope past it. I could not do that on this occasion. There was no associated ulceration or mass. I used a [employer] incremental pyloric dilating balloon to dilate the stricture right beneath the upper esophageal sphincter from 8 mm to 9 mm at the recommended pressure for between 15 and 30 seconds each. Post-dilation, I was then able to get the scope past. The balloon was withdrawn from the scope. The scope was advanced to the distal esophagus. The gastroesophageal junction appeared normal at 35 cm. The scope entered the stomach. There was a small hiatal hernia. The scope was advanced to pylorus. The duodenum was cannulated to the descending portion. The duodenum including the bulb appeared normal without mass or ulceration. The scope was withdrawn back to the stomach. The stomach had a relatively diffuse appearance of chronic gastritis with erythema and edema. There was good peristalsis. Biopsies were obtained from the antrum. At 45 cm along the anterior wall, was an approximately 5 or 6 mm ulcer with some surrounding edema. There was no bleeding. I did obtain multiple biopsies from the margins. The scope was retroflexed, visualizing the proximal stomach carefully, which appeared otherwise normal without mass or ulceration. The scope was withdrawn back in the esophagus. The area of the very proximal esophageal stricture was carefully inspected. It was still relatively tight, and I did use an another pyloric balloon to dilate the stricture from 10 mm to 11 mm at the recommended pressure between 15 and 30 seconds each. There were no proximal esophageal rings. Post-dilation there was clear disruption of the mucosa and was it definitely easier to move the scope in and out. I did not dilate beyond this given the already disrupted mucosa within the stricture. I did obtain biopsies at 20 cm to rule out eosinophilic esophagitis. The scope was withdrawn from the patient. She tolerated the procedure well and was returned to recovery area in stable condition. IMPRESSION: 1. Tight very proximal esophageal stricture. Status post balloon dilation. Rule out eosinophilic esophagitis. 2. Hiatal hernia. 3. Proximal gastric ulcer, rule out Helicobacter pylori. 4. Gastritis, rule out Helicobacter pylori. PLAN: The results of the biopsies will be checked. She currently is using only famotidine. However, given today's findings, I am going to switch her to a PPI and will send a prescription over for her for omeprazole 40mg. She was advised not to use any aspirin or NSAIDs long-term. Depending upon her clinical course, she may need further dilation or even consideration of surgery given the location of the stricture in which case we would have to refer her to either a thoracic surgeon or ENT physician. She will be followed up in the office. This has been discussed with her daughter. MD CHASE Stewart/RAY / [id number] MTDD
--- NOTE | 2024-09-06 09:40 | HO.POSTANES ---
Post Anesthesia Evaluation Post Anesthesia Evaluation Date of Service: 09/06/24 Vital Signs: Vital Signs Temp Pulse Resp BP Pulse Ox O2 Del Method 09/06/24 09:00 97.8 F 77 16 121/55 L 100 Room Air 09/06/24 08:08 97.6 F 74 18 123/50 L 100 Room Air Anesthesia: Monitored Mental Status: Awake Pain Control: Satisfactory Nausea/Vomiting: None Hydration: Adequate Anesthesia-Related Issues: No Anes. Related Issues
== END 2024-09-06 10:12 | disposition home or self-care (01) ==
PROVIDERS: PCP Internal Medicine; Visit Provider Internal Medicine
PROC: (CPT 43245; principal; 2024-09-06 08:20)
DX: R13.14 Dysphagia, pharyngoesophageal phase (principal); K22.2 Esophageal obstruction; K25.9 Gastric ulcer, unspecified as acute or chronic, without hemorrhage or perforation; K20.80 Other esophagitis without bleeding; K29.60 Other gastritis without bleeding; K44.9 Diaphragmatic hernia without obstruction or gangrene; I10 Essential (primary) hypertension; E78.5 Hyperlipidemia, unspecified; K52.9 Noninfective gastroenteritis and colitis, unspecified; J98.4 Other disorders of lung; R63.6 Underweight; Z68.1 Body mass index [BMI] 19.9 or less, adult; Z85.3 Personal history of malignant neoplasm of breast
CPT/HCPCS: 43245; 43249; 43239; 88305; 88312; 88313; 88342; C1726; J2003; J2704

== ENCOUNTER 2024-10-08 18:03 | Emergency (ER) | payer MEDICARE, SELFPAY ==
[2024-10-08 18:13] VITALS: BP 97/42; PULSE 75; RESP 16; TEMP 36.9; O2SAT 99; BMI 17.5
[2024-10-08 18:29] LABS: MANUAL DIFF FLAG NO
[2024-10-08 18:39] LABS: Hematocrit 33.8 % (37.0-47.0); Hemoglobin 10.7 g/dl (12.0-16.0); Imm Gran Abs Auto 0.04 X10*3/uL (0.00-0.03); Imm Gran Pct Auto 0.4 % (0.0-0.4); Lymphocytes Absolute Auto 1.1 X10*3/uL (1.2-4.9); Mean Corpuscular HGB Conc 31.7 g/dl (31.0-35.0); Mean Corpuscular Hemoglobin 27.0 pg (27.0-33.0); Mean Corpuscular Volume 85.4 fL (80.0-98.0); NRBC Abs Auto 0.050 X10*3/uL (0.0-0.012); NRBC Pct Auto 0.6 /100WBC (0.0-0.2); Platelet Count 105 X10*3/uL (160-400); Red Blood Count 3.96 X10*6/uL (4.20-5.50); White Blood Count 8.9 X10*3/uL (4.8-10.8)
--- NOTE | 2024-10-08 18:40 | ED.WEAKNESS ---
HPI - Weakness General Chief complaint: Weakness Stated complaint: weakness for a few days Time Seen by Provider: 10/08/24 18:15 Source: patient and family Mode of arrival: ambulatory Limitations: no limitations History of Present Illness ED Provider: HPI Narrative: Patient is 84 years old with a history of depression lives alone with history of breast cancer in remission brought by family for lack of appetite not eating well for last 2-3 months also noticed her legs were swollen patient denied any abdominal pain had CT scan done in 08/04 which was negative patient just says that she does not feel hungry and does not eat much patient has lots significant weight in last 3 months Related Data Home Medications ?Medication ?Instructions ?Recorded ?Confirmed aspirin 81 mg tablet,delayed 81 mg PO DAILY 01/20/21 09/04/24 release (Adult Low Dose Aspirin) loratadine 10 mg tablet 10 mg PO DAILY 07/17/24 09/04/24 Previous Rx's ?Medication ?Instructions ?Recorded famotidine 20 mg tablet 20 mg PO BEDTIME #90 tabs 02/07/23 metoprolol succinate 25 mg 12.5 mg (1/2 x 25 mg) PO DAILY 90 01/02/24 tablet,extended release 24 hr days #45 tabs calcium carbonate (Calcium 600) 600 mg PO BID #180 tabs 04/05/24 cholecalciferol (vitamin D3) 25 25 mcg PO DAILY #90 caps 04/05/24 mcg (1,000 unit) capsule amlodipine 5 mg tablet 5 mg PO DAILY #90 tabs 09/03/24 lactobacillus combo no.11 15 1 cap PO DAILY #90 caps 09/20/24 billion cell sprinkle capsule (Probiotic) magnesium oxide 400 mg PO DAILY #30 tabs 09/20/24 cefuroxime axetil 250 mg tablet 250 mg PO BID 7 days #14 tabs 10/08/24 megestrol 400 mg/10 mL (10 mL) 400 mg (10 mL) PO DAILY #300 mL 10/08/24 oral suspension Allergies Allergy/AdvReac Type Severity Reaction Status Date / Time codeine (CODEINE) Allergy Intermediate MOOD Verified 10/08/24 18:16 CHANGE, dizziness indigotindisulfonic acid Allergy Intermediate increased Verified 10/08/24 18:16 (Indigo [place]) blood pressure cephalexin (From KEFLEX) Allergy Unknown pt cannot Verified 10/08/24 18:16 remember reaction lisinopril (LISINOPRIL) AdvReac Intermediate dry cough Verified 10/08/24 18:16 simvastatin (From ZOCOR) AdvReac Unknown pt can't Verified 10/08/24 18:16 remember reaction Review of Systems Review of Systems: Yes all other systems are reviewed and are negative [facility] Past Medical History Medical History Hyperlipidemia GERD (gastroesophageal reflux disease) Colitis HTN (hypertension) Cavitary lesion of lung History of breast cancer Diarrhea Surgical History History of hip surgery History of mammogram History of excision of mass History of esophagogastroduodenoscopy (EGD) History of colonoscopy History of lumpectomy of right breast History of hysterectomy Family History Family History Father CHF (congestive heart failure) Mother Diabetes mellitus Brother No problems noted. Sister No problems noted. Daughter No problems noted. Son No problems noted. Son No problems noted. Social History Social History Household Members: None Housing: House Are you a primary certified caregiver to a significant other at home: No Do you presently have visiting nurse or other home services: No Alcohol intake: never Patient Tobacco Use Status: Never used Tobacco e-Cigarette/Vaping Use: Never Used Second Hand Smoke Exposure: No Advance Directives: Yes Advance Directives on File: Yes Advance Directives Date on File: 12/16/19 Do you have a plan to hurt others: No Plan service: No Current occupational status: retired Cognitive needs: No Hearing needs: No Vision needs: Yes Physical Exam Vital Signs: Vital Signs: Last Vital Signs Temp 98.1 F 10/08/24 21:31 Pulse 76 10/08/24 21:31 Resp 19 10/08/24 21:31 BP 109/61 10/08/24 21:31 Pulse Ox 100 10/08/24 21:31 O2 Del Method Room Air 10/08/24 21:31 BMI result Body Mass Index 17.5 Appearance: Alert. Oriented X3. No acute distress. Thin emaciated patient Eyes: No pallor or icterus ENT: Pharynx normal. Oral Mucosa moist thyroid not palpable Neck: Normal inspection. Neck supple. CVS: Normal heart rate and rhythm. Pulses normal. Respiratory: No respiratory distress. Equal air entry bilateral, no wheezing/rales/rhonchi Abdomen: Soft and nontender. Bowel sounds are present, no mass palpable, no CVA tenderness Skin: Skin warm and dry. Normal skin color. Normal skin turgor. Extremities: 1+ lower extremity edema. No calf tenderness Neuro: Oriented X 3. No motor deficit. No sensory deficit.No cerebellar signs , cranial nerves II-XII intact Medications Administered Discontinued Medications Generic Name Dose Route Start Last Admin Trade Name Freq PRN Reason Stop Dose Admin Ceftriaxone Sodium 1 gm 10/08/24 21:08 10/08/24 21:21 Ceftriaxone Sodium 1 Gm Vial IVPUSH 10/08/24 21:09 1 gm ONCE ONE Administration Sodium Chloride 1,000 mls @ 999 mls/hr 10/08/24 19:06 10/08/24 21:11 Ns IV 10/08/24 20:06 Infused .Q1H1M ONE Infusion Medical Decision Making Medical Decision Making [facility] Narrative: Patient's depression with decreased oral intake family at bedside will like to take care of her at home labs are stable discharge patient home Lab Data [facility] Lab Attestation statement: I reviewed the patient's lab results. 10/08/24 18:24 10/08/24 18:24 Labs: Lab Results 10/08/24 10/08/24 10/08/24 Range/Units 18:24 20:33 20:46 WBC 8.9 (4.8-10.8) X10*3/uL RBC 3.96 L (4.20-5.50) X10*6/uL Hgb 10.7 L (12.0-16.0) g/dl Hct 33.8 L (37.0-47.0) % MCV 85.4 (80.0-98.0) fL MCH 27.0 (27.0-33.0) pg MCHC 31.7 (31.0-35.0) g/dl RDW 24.4 H (11.0-16.0) % Plt Count 105 L (160-400) X10*3/uL MPV 11.2 (9.4-12.3) fL Immature Gran % (Auto) 0.4 (0.0-0.4) % Neut % (Auto) 82.1 H (45-73) % Lymph % (Auto) 12.5 L (20-40) % [place]vert % (Auto) 4.2 (2-11) % Eos % (Auto) 0.2 (0-4) % Baso % (Auto) 0.6 (0-2) % Lymph # (Auto) 1.1 L (1.2-4.9) X10*3/uL [place]vert # (Auto) 0.4 (0.1-1.2) X10*3/uL Eos # (Auto) 0.0 (0.0-0.4) X10*3/uL Baso # (Auto) 0.1 (0.0-0.2) X10*3/uL Abs Immat Gran (auto) 0.04 H (0.00-0.03) X10*3/uL Absolute Neuts (auto) 7.3 (2.0-8.3) x10*3/uL Absolute Nucleated RBC 0.050 H (0.0-0.012) X10*3/uL Nucleated RBC % (auto) 0.6 H (0.0-0.2) /100WBC ESR 2 (0-20) MM/HR Sodium 131 L (135-145) mmol/L Potassium 4.3 (3.3-5.1) mmol/L Chloride 105 (96-108) mmol/L Carbon Dioxide 20 L (22-29) mmol/L Anion Gap 10 L (12-20) BUN 13 (9-16) mg/dL Creatinine 0.92 (0.5-1.4) mg/dL Estim Creat Clear Calc 29.7 Estimated GFR 58 Random Glucose 77 (60-115) mg/dL Calcium 6.9 L (8.4-10.2) mg/dL Magnesium 1.7 (1.6-2.6) mg/dL Total Bilirubin 1.1 H (0.0-1.0) mg/dL AST 20 (5-31) U/L ALT < 6 (0-31) U/L Alkaline Phosphatase 77 (39-117) U/L C-Reactive Protein 7.37 H (< or = 0.50) mg/dL B-Natriuretic Peptide 97 (<100) pg/mL Total Protein 5.0 L (6.5-8.0) g/dL Albumin 2.1 L (3.5-5.0) g/dL Carcinoembryonic Ag 2.50 ng/mL TSH 9.89 H (0.32-4.0) uIU/mL Urine Color Yellow Urine Appearance Clear Urine pH 7.0 (5.0-9.0) Ur Specific Wallace <= 1.005 (1.005-1.025) Urine Protein Negative (Neg-Trace) mg/dL Urine Glucose (UA) Negative (Negative) mg/dL Urine Ketones Negative (Negative) mg/dL Urine Blood Negative (Negative) Urine Nitrite Positive H (Negative) Ur Leukocyte Esterase Moderate (2+) H (Negative) Urine RBC 0-2 (0-2) /HPF Urine WBC 11-20 H (0-5) /HPF Ur Squamous Epith Cells 0-2 (0-2) /HPF Urine Bacteria 4+ (None Seen) Hyaline Casts 3-5 (0-2) /LPF Discharge Plan Discharge Clinical Impression: Adult failure to thrive, Acute UTI Patient Disposition: Home, Self-Care Instructions: Urinary Tract Infection in Older Adults (ED) Additional Instructions: Drink plenty of fluids Have food continue high-protein Antibiotic as prescribed for urinary tract infection Take megestrol 400 mg daily to increased appetite Prescriptions: New megestrol 400 mg/10 mL (10 mL) suspension 400 mg PO DAILY Qty: 300 0RF cefuroxime axetil 250 mg tablet 250 mg PO BID 7 Days Qty: 14 0RF No Action famotidine 20 mg tablet 20 mg PO BEDTIME Qty: 90 0RF metoprolol succinate 25 mg tablet extended release 24 hr 12.5 mg PO DAILY 90 Days Qty: 45 3RF amlodipine 5 mg tablet 5 mg PO DAILY Qty: 90 1RF calcium carbonate [Calcium 600] 600 mg calcium (1,500 mg) Tablet 600 mg PO BID Qty: 180 4RF cholecalciferol (vitamin D3) 25 mcg (1,000 unit) capsule 25 mcg PO DAILY Qty: 90 3RF Probiotic 15 billion cell Capsule, Sprinkle 1 cap PO DAILY Qty: 90 1RF Rx Instructions: do not crush/chew/cut; swallow whole OR may open and sprinkle in cold drink/food magnesium oxide 400 mg magnesium Tablet 400 mg PO DAILY Qty: 30 0RF loratadine 10 mg Tablet 10 mg PO DAILY aspirin [Adult Low Dose Aspirin] 81 mg tablet,delayed release (DR/EC) 81 mg PO DAILY Interventions: ED Discharge Assessment Last Done: 10/08/24 21:31 Discharge Date/Time: 10/08/24 21:56 Print Language: Irish
[2024-10-08 18:47] LABS: Alanine Aminotransferase < 6 U/L (0-31); Albumin Level 2.1 g/dL (3.5-5.0); Alkaline Phosphatase 77 U/L (39-117); Anion Gap 10 (12-20); Aspartate Amino Transferase 20 U/L (5-31); Blood Urea Nitrogen 13 mg/dL (9-16); Calcium 6.9 mg/dL (8.4-10.2); Carbon Dioxide 20 mmol/L (22-29); Chloride 105 mmol/L (96-108); Creatinine Clr Calc Pharmacy 29.7; Estimated Glomerular Filt Rate 58; Potassium 4.3 mmol/L (3.3-5.1); Sodium 131 mmol/L (135-145); Total Protein 5.0 g/dL (6.5-8.0)
[2024-10-08 19:27] LABS: Magnesium 1.7 mg/dL (1.6-2.6)
[2024-10-08 19:45] LABS: B Type Natriuretic Peptide 97 pg/mL (<100)
--- NOTE | 2024-10-08 19:52 | PC.NURSE ---
this rn assumed care of pt, pt medicated per mar, offers no complaints at this time, family at bedside
[2024-10-08 20:34] VITALS: BP 116/48; PULSE 75; RESP 18; TEMP 36.6; O2SAT 100
--- OUTSIDE RECORDS SUMMARY | 2024-10-08 20:40 | XMS_ITS | Patient Health Record ---
Author Organization [facility] Address [address] [place] [address] Care Team Providers Care Tool Checker Name Role Phone Douglas OWENS, [facility] Primary [facility] Provider John Diane [phone] Allergies Allergen (clinical drug ingredient) Drug/Non Drug Allergy documented on EMR Reaction Allergy Type Onset Date Status simvastatin Zocor Unknown Drug Allergy Activ e lisinopril Lisinopril Unknown Drug Allergy Activ e Keflex Unknown Drug Allergy Active Indigo [place] Unknown Drug Allergy Ac tive codeine Codeine Sulfate Unknown Drug Allergy A ctive cephalexin Cephalexin Unknown Drug Allergy Activ e blue dye (uncoded) Unknown Allergy A ctive Results Component Value Reference Range Notes Pathology Reviewed date:10/06/2024 10:16:26 PM Interpretation: Performing Lab:[facility], [address] [place] [id number] Notes/Report: Reason For Referral No Information Medications Medication SIG (Take, Route, Frequency, Duration) Notes Start Date End Date Status Procrit 0 Injection Active Tylenol PRN Active Calcium-Vitamin D3 250-125 MG-UNIT TAKE 1 TABLET BY MOUTH TWICE A DAY Oral for 90 Active Famotidine 20 MG TAKE 2 TABLETS BY MOUTH EVERY DAY AT BEDTIME for 90 Active Aspir-81 81mg Active dexAMETHasone 0.5 MG/5ML 10 mL swish in mouth for 3 to 5 minutes and then spit out. Do not eat, drink, nor rinse for 30 minutes afterwards Orally every 6 hours if needed for mouth ulcers for 30 days Active Omeprazole 40 MG 1 capsule Orally Every morning for 90 days Please remind her to stop her Famotidine and 81mg aspirin, Thanks 09/06/2024 Active Claritin 10 MG 1 tablet Orally Once a day Active amLODIPine-Atorvastati n 5-10 MG 1 tablet Orally Once a day for 30 day(s) Active Immunizations Vaccine Route Administration Date Status Comme nts Flu vaccine no Preserv 3 and > Unknown 11/20/2013 Admin istered Influenza Unknown 11/11/2018 Administered Influenza Unknown 12/18/2019 Administered Influenza Unknown 12/30/2020 Administered Influenza Unknown 01/03/2023 Administered Problems Problem Type SNOMED Code ICD Code Onset Dates Problem Status W/U Status Risk Notes Problem 50057232 Weight loss (R63.4) Active confirmed Problem Dysphagia (68673830) Dysphagia (R13.10) Active confirmed Problem 28408577 Other iron deficiency anemia (D50.8) Active confirmed Problem Achalasia (15278494) Achalasia (K22.0) Active confirmed Problem 48808444 Pharyngoesophage al dysphagia (R13.14) Active confirmed Problem 939058817 Abnormal barium swallow (R93.3) Active confirmed Problem 394809963 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 Problem 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 Problem 03120976 Mouth ulcers (K12.1) Active confirmed Procedures Procedure Date Ordered Date Performed Result Body Sit e UPPER GI ENDOSCOPY BALLOOON DILATION OF ESOPH 07/31/2024 N/A Encounters Encounter Location Date Provider Diagnosis [facility] [address] [place] [phone] 09/06/2024 John Amaya Esophageal dysphagia R13.14 ; Esophageal stricture K22.2 ; Hiatal hernia K44.9 and Gastritis K29.70 [facility] [address] [place] [phone] 07/31/2024 John Amaya Dysphagia R13.10 and Cricopharyngeal achalasia K22.0 [facility] [address] [place] [phone] 08/28/2024 John Amaya [facility] [address] [place] [phone] 09/06/2024 John Amaya [facility] [address] [place] [phone] 09/09/2024 John Amaya Assessments Encounter Date Diagnosis (ICD Code) Assessment Notes Treatment Notes Treatment Clinical Notes Section Notes 09/06/2024 Esophageal stricture (ICD-10 - K22.2) 09/06/2024 Esophageal dysphagia (ICD-10 - R13.14) 07/31/2024 Dysphagia (ICD-10 - R13.10) 07/31/2024 Cricopharyngeal achalasia (ICD-10 - K22.0) 09/06/2024 Hiatal hernia (ICD-10 - K44.9) 09/06/2024 Gastritis (ICD-10 - K29.70) Plan Of Treatment Pending Test Test Name Order Date UPPER GI ENDOSCOPY BALLOOON DILATION OF ESOPH 07/31/2024 CRP 12/10/2019 VITAMIN B12 AND FOLATE 12/22/2010 STOOL WBC 06/20/2019 ENDOMYSIAL IGA 12/22/2010 TRANSGLUTAMINASE AB IGA 12/22/2010 TRANSGLUTAMINASE AB IGG 12/22/2010 GIARDIA AG, STOOL EIA 06/20/2019 OVA & PARASITES (O&P) 06/20/2019 ROUTINE CULTURE 06/20/2019 XR BARIUM SWALLOW-ESOPHAGUS 11/25/2022 C DIFFICILE RFLX PCR 06/20/2019 Future Test Test Name Order Date UPPER GI ENDOSCOPY 10/30/2013 UPPER GI ENDOSCOPY BALLOOON DILATION OF ESOPH 12/29/2022 Next Appt Details Provider Name:John Amaya , 01/10/2025 01:20:00 PM, [address] [place] [address], [place] [address], [place], [address], Insurance Providers Payer Name Payer Address Payer Phone Subscriber Number Group Number Insured Name Patient Relationship to Insured Coverage Start Date Coverage End Date MEDICARE [place] [address] [place] [address] [id number] ABRIL TOUSSAINT Self - patient is the insured MED[employer] ATTN CLAIMS [address] [place] [phone] [id number] NORBERT ABRIL Self - patient is the insured Medical [...] of her liver studies Denies history of [place], stroke, lung disea se, nor kidney disease [...]
[2024-10-08 20:52] LABS: Appearance Urine Clear; Glucose Urine UA Negative (Negative); PH 7.0 (5.0-9.0); Specific Gravity - Urine <= 1.005 (1.005-1.025); UMIC TRIGGER UACC YES
--- NOTE | 2024-10-08 20:52 | PC.NURSE ---
pt assisted onto bedpan at this time, urine sample obtained, pt given warm blanket
[2024-10-08 20:57] LABS: UACC Culture Trigger YES
[2024-10-08 21:12] LABS: Carcinoembryonic Antigen 2.50 ng/mL; Thyroid Stimulating Hormone 9.89 uIU/mL (0.32-4.0)
--- NOTE | 2024-10-08 21:24 | PC.NURSE ---
pt medicated per may, per dr.anwer do to administer without blood cultures
[2024-10-08 21:31] VITALS: BP 109/61; PULSE 76; RESP 19; TEMP 36.7; O2SAT 100
== END 2024-10-08 21:56 | disposition home or self-care (01) ==
PROVIDERS: Emergency Provider Internal Medicine; PCP Internal Medicine
DX: N39.0 Urinary tract infection, site not specified (principal); B95.2 Enterococcus as the cause of diseases classified elsewhere; B96.89 Other specified bacterial agents as the cause of diseases classified elsewhere; R62.7 Adult failure to thrive; Z68.1 Body mass index [BMI] 19.9 or less, adult; R60.0 Localized edema; R53.1 Weakness; I10 Essential (primary) hypertension; E78.5 Hyperlipidemia, unspecified; Z79.899 Other long term (current) drug therapy; Z85.3 Personal history of malignant neoplasm of breast
CPT/HCPCS: 36415; 80053; 81001; 82378; 83735; 83880; 84443; 85025; 85652; 86140; 87086; 87088; 87186; 96361; 96374; 99284; J0696

== ENCOUNTER 2024-10-14 10:28 | Outpatient (AMB) | payer MEDICARE, SELFPAY ==
[2024-10-14 11:48] VITALS: BP 108/62; PULSE 74; TEMP 36.3; O2SAT 100; BMI 16.5
--- NOTE | 2024-10-14 11:48 | AM.OFFWIN_ITS ---
Intake Vital Signs 10/14/24 11:48 Height 5 ft Weight 84 lb 4 oz BMI 16.5 BP 108/62 Pulse 74 Pulse Source Pulse Oximeter Temp 97.4 F Temp Source Oral Pulse Oximetry (%) 100 Oxygen Delivery Method Room Air Intake Visit Reasons: EP Bilat leg swelling, discharge in foot/pain Patient Tobacco Use Status: Never used Tobacco Pediatric Dietician Required: No Is last menstrual period known: No Post menopausal: Yes Patient : No Allergies codeine (CODEINE) Allergy (Intermediate, Verified 10/14/24 11:58) MOOD CHANGE, dizziness indigotindisulfonic acid (Indigo [place]) Allergy (Intermediate, Verified 10/14/24 11:58) increased blood pressure cephalexin (From KEFLEX) Allergy (Unknown, Verified 10/14/24 11:58) pt cannot remember reaction lisinopril (LISINOPRIL) Adverse Reaction (Intermediate, Verified 10/14/24 11:58) dry cough simvastatin (From ZOCOR) Adverse Reaction (Unknown, Verified 10/14/24 11:58) pt can't remember reaction HPI HPI Comments History of Present Illness Details History of Present Illness - The patient is an 84-year-old female p resenting with her daughter for bilateral lower extremity edema and pain. - The swelling and pain in her legs and feet have been worsening, prompting a visit to the emergency room last Monday, where no specific treatment for her legs was provided. - Her daughter states that she has been having bilateral leg swelling and that she has fluid draining from her legs. - Her daughter states that she has been complaining of pain in the lower legs. - She states that her right foot is red and her toes are swollen. - The patient denies any chest pain or s hortness of breath. - There is a noted history of urinary tr act infection for which she was previously on antibiotics. - The patient has an upcoming appointmen t with a shank piece tacker for further evaluation. - She denies fever, chills, CHAPIN, numbnes s, or tingling. Physical Exam General: Cooperative, healthy appearing, comfortable, no acute distress and well developed Orientation: Patient oriented x3 Respiratory: Normal respiratory effort and able to speak in complete sentences. Clear to auscultation bilaterally Cardiovascular: Regular rate and rhythm. Normal S1 and S2 Skin: Redness to the right digits with swelling and erythema to the top of the foot. Warmth noted to the right foot. No streaking noted. No discharge noted. Neuro: Sensation is intact. Extremities: 3+ pitting edema noted on the legs bilaterally. No calf tenderness noted. Negative Blanca's noted bilaterally. Fluid noted. Patient was informed and verbally consented to the use of an ambient scribe for clinic note documentation during this visit. [facility] Medical History Hyperlipidemia GERD (gastroesophageal reflux disease) Colitis HTN (hypertension) Cavitary lesion of lung History of breast cancer Diarrhea Surgical History History of hip surgery History of mammogram History of excision of mass History of esophagogastroduodenoscopy (EGD) History of colonoscopy History of lumpectomy of right breast History of hysterectomy Family History Father CHF (congestive heart failure) Mother Diabetes mellitus Brother No problems noted. Sister No problems noted. Daughter No problems noted. Son No problems noted. Son No problems noted. Social History Household Members: None Housing: House Are you a primary behavioral health care manager to a significant other at home: No Do you presently have visiting nurse or other home services: No Alcohol intake: never Patient Tobacco Use Status: Never used Tobacco e-Cigarette/Vaping Use: Never Used Second Hand Smoke Exposure: No Advance Directives Date on File: 12/16/19 service: No Current occupational status: retired Cognitive needs: No Hearing needs: No Vision needs: Yes Review of Systems Const All systems reviewed & are unremarkable except as noted in HPI and below Physical Exam Vital Signs: Last Vital Signs Temp 97.4 F 10/14/24 11:48 Pulse 74 10/14/24 11:48 BP 108/62 10/14/24 11:48 Pulse Ox 100 10/14/24 11:48 Oxygen Delivery Method Room Air 10/14/24 11:48 BMI result Body Mass Index 16.5 Assessment & Plan Assessment & Plan (1) Bilateral edema of lower extremity: Code(s): R60.0 - Localized edema (2) Cellulitis of right foot: Code(s): L03.115 - Cellulitis of right lower limb Plan Most likely cellulitis vs lymphedema vs DVT Plan - An ultrasound of the legs is planned to rule out deep vein thrombosis. - Initiation of antibiotics for cellulitis is recommended. - Elevate her legs - Lasix for 3 days - Follow-up with PCP Orders: Orders US venous duplex LE RT 10/14/24 R60.0 - Localized edema Medications: New furosemide (Lasix) 20 mg PO DAILY 3 tabs 0RF 3 days doxycycline hyclate 100 mg PO BID 14 tabs 0RF Coding Level of Care Code Est Pt Level 4 (12212) Diagnoses Bilateral edema of lower extremity R60.0 Cellulitis of right foot L03.115
== END 2024-10-14 13:12 | disposition home or self-care (01) ==
PROVIDERS: PCP Internal Medicine; Visit Provider Physician Assistant Medical
DX: R60.0 Localized edema (principal); L03.115 Cellulitis of right lower limb

== ENCOUNTER 2024-10-14 15:17 | Outpatient (REF) | payer MEDICARE, SELFPAY ==
--- NOTE | ~2024-10-14 | US_ITS ---
EXAMINATION: US TRIPLEX LOWER EXTREMITY, BILATERAL CLINICAL INFORMATION: Bilateral lower extremity edema swelling COMPARISON: None available. TECHNIQUE: Color-flow triplex imaging with spectral analysis and compression Doppler were performed on the bilateral lower extremities. FINDINGS: Respiratory variation, normal compression and augmented flow are noted throughout the bilateral lower extremities. The visualized common femoral vein, superficial femoral vein, profunda femoral vein, popliteal vein and posterior tibial venous segments show no evidence of deep venous thrombosis bilaterally. Peroneal veins were not well demonstrated due to edema. US/US venous duplex LE BI IMPRESSION: No evidence of deep venous thrombosis involving the bilateral lower extremities. Electronically signed by: Bertram Strickland MD 10/14/2024 03:52 PM EDT
== END 2024-10-14 15:18 | disposition home or self-care (01) ==
LOC: HO.HMGCX 15:17
PROVIDERS: PCP Internal Medicine; Visit Provider Physician Assistant Medical
DX: L03.115 Cellulitis of right lower limb (principal); M79.89 Other specified soft tissue disorders; R60.0 Localized edema
CPT/HCPCS: 93970; 99212

== ENCOUNTER → 2024-10-14 15:21 | Outpatient (BNV) | payer MEDICARE, SELFPAY | PROVIDERS: PCP Internal Medicine; Visit Provider Radiology Diagnostic Radiology | DX: R60.0 Localized edema (principal) | CPT/HCPCS: 93970 ==

== ENCOUNTER → 2024-10-16 12:00 | Outpatient (BNV) | payer MEDICARE, SELFPAY | PROVIDERS: PCP Internal Medicine; Visit Provider Internal Medicine | DX: I10 Essential (primary) hypertension (principal); Z48.01 Encounter for change or removal of surgical wound dressing; K21.9 Gastro-esophageal reflux disease without esophagitis; E87.6 Hypokalemia | CPT/HCPCS: G0179 ==

== ENCOUNTER → 2024-10-22 06:59 | Outpatient (BNVA) | payer MEDICARE, SELFPAY | PROVIDERS: PCP Internal Medicine; Visit Provider Internal Medicine | DX: R60.0 Localized edema (principal); L03.115 Cellulitis of right lower limb; N18.31 Chronic kidney disease, stage 3a; D63.1 Anemia in chronic kidney disease | CPT/HCPCS: 99212 ==

== ENCOUNTER 2024-10-22 12:03 | Outpatient (AMB) | payer MEDICARE, SELFPAY ==
--- NOTE | 2024-10-22 12:07 | A.OFFPC_ITS ---
Vital Signs 10/22/24 12:08 BMI Reason not done Patient refused/unable BP 136/60 Blood Pressure Location Lt brachial Position Sitting Respiration 16 Pulse 75 Pulse Source Pulse Oximeter Temp 98.2 F Temp Source Oral Pulse Oximetry (%) 97 Oxygen Delivery Method Room Air Intake Visit Reasons: Follow up after being seen in walk in Allergies codeine (CODEINE) Allergy (Intermediate, Verified 10/22/24 12:10) MOOD CHANGE, dizziness indigotindisulfonic acid (Indigo [place]) Allergy (Intermediate, Verified 10/22/24 12:10) increased blood pressure cephalexin (From KEFLEX) Allergy (Unknown, Verified 10/22/24 12:10) pt cannot remember reaction lisinopril (LISINOPRIL) Adverse Reaction (Intermediate, Verified 10/22/24 12:10) dry cough simvastatin (From ZOCOR) Adverse Reaction (Unknown, Verified 10/22/24 12:10) pt can't remember reaction Medication List - Last Reconciled 10/22/24 by Regina Cole MD amlodipine 5 mg PO DAILY calcium carbonate (Calcium 600) 600 mg PO BID cholecalciferol (vitamin D3) 25 mcg PO DAILY doxycycline hyclate 100 mg PO BID furosemide (Lasix) 20 mg PO DAILY 3 days lactobacillus combo no.11 (Probiotic) 1 cap PO DAILY loratadine 10 mg PO DAILY magnesium oxide 1 tab PO DAILY metoprolol succinate ER 12.5 mg (1/2 x 25 mg) PO DAILY 90 days Tobacco use date assessed: 08/27/24 Fall risk assessment: No Falls in past year Last assessed Fall Risk: 10/22/24 Dental Screening Dental Screen Date: 08/27/24 HPI Follow up after being seen in walk in HPI Details Chief Complaint The patient presents for evaluation of swelling in the lower legs that has progressively worsened over the past month. History of Present Illness The patient is an 84-year-old female presenting with lower extremity swelling. Came in with her Son Lower extremity swelling: - First noted significant swelling in th e lower legs a few months ago, with worsening over the past month. - The swelling affects both legs, with t he right leg experiencing oozing fluid. - During episodes of swelling, patient v isited the emergency room but reported limited interventions. - Swelling is reportedly more pronounced at the end of the day. - Amlodipine was suspected to contribute to swelling but has since been discontinued. - No shortness of breath or problems lyi ng flat, suggesting no cardiac etiology. Cellulitis: - Diagnosed with cellulitis, likely seco ndary to skin breakdown due to swelling. - Treated initially with antibiotics, th ough recurrence of symptoms noted. - No report of fever or systemic symptom s, but noted scratch khan and redness. Anemia: - Persistent anemia patient is under johnnie atment with Hematology and Gastroen terology - Medical History: - History of recurrent urinary tract inf ections. - Anemia - Cellulitis of lower extremities likely secondary to vascular issues. Medications: - Doxycycline: Initially prescribed for cellulitis. - Amlodipine: Discontinued due to suspic ion of causing swelling. - Lasix Diagnostic Results: - Lower extremity ultrasound: No evidenc e of deep vein thrombosis. Problem List - Lower extremity swelling - Cellulitis - Anemia - Discontinued Amlodipine-related periph eral edema Patient Instructions - Continue doxycycline and water pill as prescribed for another week. - Avoid taking amlodipine due to associa tion with peripheral swelling. - Maintain foot hygiene and watch for si gns of infection such as increased redness, pain, or purulent discharge. - Ensure regular leg elevation throughou t the day to help reduce swelling. - Wear non-slip socks to prevent falls. Follow-up with vascular specialist Follow-up 1 week Review of Systems - General: No fever no chills - Neurological: No headaches no dizziness - Ear nose throat: No sore throat no hearing difficulty no ear pain - Cardiovascular: No syncope, no chest pain, no palpitations - Gastrointestinal: No nausea vomiting or diarrhea Physical Exam General: No acute distress HEENT: No acute findings Neck: Supple Respiratory system: Able to talk in full sentences, no audible wheeze, lungs are clear Cardiovascular: S1-S2 regular in rate and rhythm Gastrointestinal: No pain Extremities: Swelling of lower legs, right leg leaking fluid, redness and scratch khan present, infection noted on second and third toes [employer]ILDING [employer]PER[employer]: Alert awake oriented x3 sitting in wheelchair having difficulty walking because of swelling in feet Skin: Normal turgor FORMERLY [facility], 1928–1983 Medical History Hyperlipidemia GERD (gastroesophageal reflux disease) Colitis HTN (hypertension) Cavitary lesion of lung History of breast cancer Diarrhea Surgical History History of hip surgery History of mammogram History of excision of mass History of esophagogastroduodenoscopy (EGD) History of colonoscopy History of lumpectomy of right breast History of hysterectomy Family History Father CHF (congestive heart failure) Mother Diabetes mellitus Brother No problems noted. Sister No problems noted. Daughter No problems noted. Son No problems noted. Son No problems noted. Social History Household Members: None Housing: House Are you a primary child care specialist to a significant other at home: No Do you presently have visiting nurse or other home services: No Alcohol intake: never Patient Tobacco Use Status: Never used Tobacco e-Cigarette/Vaping Use: Never Used Second Hand Smoke Exposure: No Advance Directives Date on File: 12/16/19 service: No Current occupational status: retired Cognitive needs: No Hearing needs: No Vision needs: Yes Questionnaire Thrive Questionnaire Date Thrive assessed: 07/18/24 LIZZ-7 AMB Questionnaire LIZZ-7 Date LIZZ - 7 assessed: 04/02/24 Source: Developed by Drs. John Ndiaye, Naya Velasco, Mitch Lenz and colleagues, with an educational rhiannon from [employer]. Physical exam (Primary Care) Vital Signs: Last Vital Signs Temp 98.2 F 10/22/24 12:08 Pulse 75 10/22/24 12:08 Resp 16 10/22/24 12:08 BP 136/60 10/22/24 12:08 Pulse Ox 97 10/22/24 12:08 Oxygen Delivery Method Room Air 10/22/24 12:08 Tobacco/Smoking Status: Tobacco use Status Tobacco use date assessed 08/27/24 10/22/24 12:14 Patient Tobacco Use Status Never used Tobacco 10/22/24 12:14 e-Cigarette/Vaping Use Never Used 10/22/24 12:14 Thrive Assessment: Date of Thrive Assessment Date Thrive assessed 07/18/24 10/22/24 12:14 Coding Level of Care Code Est Pt Level 4 (91711) Diagnoses Edema, lower extremity R60.0 Cellulitis of right lower extremity L03.115 Anemia in stage 3a chronic kidney disease N18.31; D63.1 Chronic kidney disease stage: stage 3 (moderate) Chronic kidney disease stage 3 subtype: stage 3a (GFR 45-59) Comment [id number] with the patient and son Assessment & Plan Assessment & Plan (1) Edema, lower extremity: Code(s): R60.0 - Localized edema Category: Medical (2) Cellulitis of right lower extremity: Code(s): L03.115 - Cellulitis of right lower limb Category: Medical (3) Anemia in chronic kidney disease (CKD): Code(s): N18.9 - Chronic kidney disease, unspecified; D63.1 - Anemia in chronic kidney disease Category: Medical Qualifiers: Chronic kidney disease stage: stage 3 (moderate) Chronic kidney disease stage 3 subtype: stage 3a (GFR 45-59) Qualified Code(s): N18.31 - Chronic kidney disease, stage 3a; D63.1 - Anemia in chronic kidney disease Plan Chief Complaint The patient presents for evaluation of swelling in the lower legs that has progressively worsened over the past month. History of Present Illness The patient is an 84-year-old female presenting with lower extremity swelling. Came in with her Son Lower extremity swelling: - First noted significant swelling in the lower legs a few months ago, with worsening over the past month. - The swelling affects both legs, with the right leg experiencing oozing fluid. - During episodes of swelling, patient visited the emergency room but reported limited interventions. - Swelling is reportedly more pronounced at the end of the day. - Amlodipine was suspected to contribute to swelling but has since been discontinued. - No shortness of breath or problems lying flat, suggesting no cardiac etiology. Cellulitis: - Diagnosed with cellulitis, likely secondary to skin breakdown due to swelling. - Treated initially with antibiotics, though recurrence of symptoms noted. - No report of fever or systemic symptoms, but noted scratch khan and redness. Anemia: - Persistent anemia patient is under treatment with Hematology and Gastroenterology - Medical History: - History of recurrent urinary tract infections. - Anemia of chronic kidney disease - Cellulitis of lower extremities likely secondary to vascular issues. Medications: - Doxycycline: Initially prescribed for cellulitis. - Amlodipine: Discontinued due to suspicion of causing swelling. - Lasix Diagnostic Results: - Lower extremity ultrasound: No evidence of deep vein thrombosis. Problem List - Lower extremity swelling - Cellulitis - Anemia of chronic kidney disease - Discontinued Amlodipine-related peripheral edema Patient Instructions - Continue doxycycline and water pill as prescribed for another week. - Avoid taking amlodipine due to association with peripheral swelling. - Maintain foot hygiene and watch for signs of infection such as increased redness, pain, or purulent discharge. - Ensure regular leg elevation throughout the day to help reduce swelling. - Wear non-slip socks to prevent falls. Follow-up with vascular specialist Follow-up 1 week Medications: Changed From furosemide (Lasix) 20 mg PO DAILY 3 days 3 tabs 0RF To furosemide (Lasix) 20 mg PO DAILY 14 tabs 0RF 14 days Refilled doxycycline hyclate 100 mg PO BID 14 tabs 0RF Discontinued amlodipine Discontinued Reason: Doctor's Order 5 mg PO DAILY 90 tabs 1RF
[2024-10-22 12:08] VITALS: BP 136/60; PULSE 75; RESP 16; TEMP 36.8; O2SAT 97
--- OUTSIDE RECORDS SUMMARY | 2024-12-02 20:00 | XMS_ITS | Clinical Summary ---
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, JOSE Unavailable Unavailable LAZARO PT, GABE Unavailable Unavailable PIPPA RN, OSKAR Unavailable Unavailab le READING OT, NICA Unavailable Unavailable Payers Payer Name Policy Type Policy Number Effective Date Expira tion Date MEDICARE.NGS.PDGM [id number] Problems Condition Name Condition Details Condition Category Status Onset Date Resolution Date Last Treatment Date Treating Clinician Comments ESSENTIAL (PRIMARY) HYPERTENSION Active 10-01 00:00: 00 ENCOUNTER FOR CHANGE OR REMOVAL OF SURGICAL WOUND DRESSING Active 10-01 00:00: 00 GASTRO-ESOPH AGEAL REFLUX DISEASE WITHOUT ESOPHAGITIS Active 08-06 00:00: 00 HYPOKALEMIA Active 07-20 00:00: 00 AGE-RELATED OSTEOPOROSIS W/O CURRENT PATHOLOGICAL FRACTURE Active 08-06 00:00: 00 HYPO-OSMOLAL ITY AND HYPONATREMIA Active 08-06 00:00: 00 IRON DEFICIENCY ANEMIA, UNSPECIFIED Active 08-06 00:00: 00 DYSPHAGIA, UNSPECIFIED Active 07-20 00:00: 00 PERSONAL HISTORY OF MALIGNANT NEOPLASM [...] 07-10 00:00: 00 08-06 00:00 :00 No [id number] Per instruc tions EVERY DAY FOR 10 DAYS Per instructio ns EVERY DAY FOR 10 DAYS (route: oral) Med Classific ation: Anti-Infe ctive Agents Align (B.infantis ) 10.5 mg (10 million cell) chewable tablet 08-06 00:00: 00 Yes [id number] SUPPLEMENT 1 tablet DAILY 1 tablet DAILY (route: oral) Med Classific ation: Gastroint estinal Therapy Agents amlodipine 5 mg tablet 08-06 00:00: 00 10-01 23:59 :00 No [id number] HIGH BLOOD PRESSURE 1 tablet DAILY 1 tablet DAILY (route: oral) Med Classific ation: Cardiovas cular Therapy Agents aspirin 81 mg tablet,monica yed release 08-06 00:00: 00 09-10 23:59 :00 No [id number] HIGH LIPIDS 1 tablet DAILY 1 tablet DAILY (route: oral) Med Classific ation: Hematolog ical Agents Biotin Plus 5,000 mcg-10 mg tablet 08-06 00:00: 00 Yes [id number] SUPPLEMENT 1 tablet DAILY 1 tablet DAILY (route: oral) Med Classific ation: Alternati ve Therapy cholecalcif moshe (vitamin D3) 25 mcg (1,000 unit) tablet 08-06 00:00: 00 Yes [id number] SUPPLEMENT 1 tablet DAILY 1 tablet DAILY (route: oral) Med Classific ation: Electroly te Balance-N utritiona l Products famotidine 20 mg tablet 08-06 00:00: 00 09-10 23:59 :00 No [id number] GERD 1 tablet BEDTIME 1 tablet BEDTIME (route: oral) Med Classific ation: Gastroint estinal Therapy Agents loratadine 10 mg tablet 08-06 00:00: 00 Yes [id number] SEASONAL ALLERGIES 1 tablet DAILY 1 tablet DAILY (route: oral) Med Classific ation: Respirato ry Therapy Agents metoprolol succinate ER 25 mg tablet,exte nded release 24 hr 08-06 00:00: 00 Yes [id number] IRREGULAR HEART BEAT 0.5 tablet DAILY 0.5 tablet DAILY (route: oral) Med Classific ation: Cardiovas cular Therapy Agents Tums 200 mg (as calcium carbonate 500 mg) chewable tablet 08-06 00:00: 00 Yes [id number] GERD 2 tablet 2 TIMES DAILY 2 tablet 2 TIMES DAILY (route: oral) Med Classific ation: Gastroint estinal Therapy Agents Tylenol Extra Strength 500 mg tablet 08-06 00:00: 00 Yes [id number] PAIN 2 tablet EVERY 8 HOURS 2 tablet EVERY 8 HOURS (route: oral) Med Classific ation: Analgesic , Anti-infl ammatory or Antipyret ic omeprazole 40 mg capsule,del ayed release 09-10 00:00: 00 Yes [id number] GERD 1 capsule DAILY 1 capsule DAILY (route: oral) Med Classific ation: Gastroint estinal Therapy Agents magnesium oxide 400 mg (241.3 mg magnesium) tablet 09-20 00:00: 00 Yes [id number] CONSTIPATIO N 1 tablet DAILY 1 tablet DAILY (route: oral) Med Classific ation: Electroly te Balance-N utritiona l Products Vital Signs Vital Name Observation Time Observation Value Commen ts Temperature 2024-10-15 15:18:00.000 97.3 [degF] Temperature 2024-10-09 14:46:00.000 97.6 [degF] Pulse 2024-10-15 15:18:00.000 77 /min Pulse 2024-10-09 14:46:00.000 74 /min O2 Saturation (%) 2024-10-15 15:18:00.000 98 % O2 Saturation (%) 2024-10-09 14:46:00.000 100 % Respirations 2024-10-15 15:18:00.000 18 /min Respirations 2024-10-09 14:46:00.000 18 /min Systolic Blood Pressure 2024-10-15 15:18:00.000 95 mm[ Hg] Systolic Blood Pressure 2024-10-09 14:46:00.000 98 mm[ Hg] Diastolic Blood Pressure 2024-10-15 15:18:00.000 60 mm [Hg] Diastolic Blood Pressure 2024-10-09 14:46:00.000 62 mm [Hg] Plan of Treatment Planned Activity Planned Date Details Comments Future Scheduled Test RN TO OBSE RVE, ASSESS, EVALUATE, AND DEVELOP AN INDIVIDUALIZED PLAN OF CARE. AGENCY MAY ACCEPT ORDERS FROM CONSULTING PHYSICIANS. RN TO OBSERVE AND ASSESS, OVAL OR CIRCULAR GLASS CUTTER/STAKEHOLDER MANAGER TO OBSERVE FOR RISK FOR FALLS AND INSTRUCT IN FALL PREVENTION, HOME SAFETY, MEDICATION MANAGEMENT, INFECTION PREVENTION, AND NUTRITION MANAGEMENT. RN/OVAL OR CIRCULAR GLASS CUTTER/STAKEHOLDER MANAGER NURSE MAY PERFORM O2 SATURATION LEVEL ON ADMISSION AND PRN FOR RN TO ASSESS/OVAL OR CIRCULAR GLASS CUTTER TO OBSERVE PATIENT, WITH NOTIFICATION TO THE PHYSICIAN IF SATURATION IS 90% IN THE ABSENCE OF MORE SPECIFIC PARAMETERS FROM THE PHYSICIAN. AGENCY MAY PERFORM A RESUMPTION OF CARE VISIT FOLLOWING ANY HOSPITAL ADMISSION. RN/OVAL OR CIRCULAR GLASS CUTTER/STAKEHOLDER MANAGER TO MONITOR CO-MORBID CONDITIONS LISTED ON THE PLAN OF CARE AND ANY NEW CONDITIONS THAT PRESENT THEMSELVES DURING THIS EPISODE TO IDENTIFY CHANGES AND INTERVENE TO MINIMIZE COMPLICATIONS. [code = RN TO OBSERVE, ASSESS, EVALUATE, AND DEVELOP AN INDIVIDUALIZED PLAN OF CARE. AGENCY MAY ACCEPT ORDERS FROM CONSULTING PHYSICIANS. RN TO OBSERVE AND ASSESS, OVAL OR CIRCULAR GLASS CUTTER/STAKEHOLDER MANAGER TO OBSERVE FOR RISK FOR FALLS AND INSTRUCT IN FALL PREVENTION, HOME SAFETY, MEDICATION MANAGEMENT, INFECTION PREVENTION, AND NUTRITION MANAGEMENT. RN/OVAL OR CIRCULAR GLASS CUTTER/STAKEHOLDER MANAGER NURSE MAY PERFORM O2 SATURATION LEVEL ON ADMISSION AND PRN FOR RN TO ASSESS/OVAL OR CIRCULAR GLASS CUTTER TO OBSERVE PATIENT, WITH NOTIFICATION TO THE PHYSICIAN IF SATURATION IS 90% IN THE ABSENCE OF MORE SPECIFIC PARAMETERS FROM THE PHYSICIAN. AGENCY MAY PERFORM A RESUMPTION OF CARE VISIT FOLLOWING ANY HOSPITAL ADMISSION. RN/OVAL OR CIRCULAR GLASS CUTTER/STAKEHOLDER MANAGER TO MONITOR CO-MORBID CONDITIONS LISTED ON THE PLAN OF CARE AND ANY NEW CONDITIONS THAT PRESENT THEMSELVES DURING THIS EPISODE TO IDENTIFY CHANGES AND INTERVENE TO MINIMIZE COMPLICATIONS.] Future Scheduled Test MEDICATION MANAGEMENT; RN/OVAL OR CIRCULAR GLASS CUTTER/STAKEHOLDER MANAGER TO REVIEW MEDICATIONS FOR INTERACTIONS, EFFECTIVENESS OF DRUG THERAPY, AND SIGNS/SYMPTOMS OF ADVERSE REACTIONS. MAY INSTRUCT AND REINFORCE MEDICATION TEACHING RELATED TO THE USE OF MEDICATIONS, DOSAGE, FREQUENCY, PURPOSE, SIDE EFFECTS, AND TO REPORT COMPLICATIONS. [code = MEDICATION MANAGEMENT; RN/OVAL OR CIRCULAR GLASS CUTTER/STAKEHOLDER MANAGER TO REVIEW MEDICATIONS FOR INTERACTIONS, EFFECTIVENESS OF DRUG THERAPY, AND SIGNS/SYMPTOMS OF ADVERSE REACTIONS. MAY INSTRUCT AND REINFORCE MEDICATION TEACHING RELATED TO THE USE OF MEDICATIONS, DOSAGE, FREQUENCY, PURPOSE, SIDE EFFECTS, AND TO REPORT COMPLICATIONS.] Future Scheduled Test RISK FOR H OSPITALIZATION; RN TO ASSESS/TEACH, STAKEHOLDER MANAGER/OVAL OR CIRCULAR GLASS CUTTER TO OBSERVE/TEACH PATIENT/CAREGIVER ON RISK FOR HOSPITALIZATION/EMERGENCY ROOM VISITS, TEACH SIGNS AND SYMPTOMS THAT PUT PATIENT AT RISK, WHEN TO NOTIFY NURSE/PHYSICIAN OF COMPLICATIONS/DECLINE, AND WHEN TO CALL 911. [code = RISK FOR HOSPITALIZATION; RN TO ASSESS/TEACH, STAKEHOLDER MANAGER/OVAL OR CIRCULAR GLASS CUTTER TO OBSERVE/TEACH PATIENT/CAREGIVER ON RISK FOR HOSPITALIZATION/EMERGENCY ROOM VISITS, TEACH SIGNS AND SYMPTOMS THAT PUT PATIENT AT RISK, WHEN TO NOTIFY NURSE/PHYSICIAN OF COMPLICATIONS/DECLINE, AND WHEN TO CALL 911.] Future Scheduled Test CARDIOVASC ULAR SYSTEM; RN TO ASSESS/TEACH, OVAL OR CIRCULAR GLASS CUTTER/STAKEHOLDER MANAGER TO OBSERVE/TEACH RELATED TO ALTERED CARDIOVASCULAR STATUS TO MINIMIZE COMPLICATIONS AND REDUCE HOSPITALIZATION. [code = CARDIOVASCULAR SYSTEM; RN TO ASSESS/TEACH, OVAL OR CIRCULAR GLASS CUTTER/STAKEHOLDER MANAGER TO OBSERVE/TEACH RELATED TO ALTERED CARDIOVASCULAR STATUS TO MINIMIZE COMPLICATIONS AND REDUCE HOSPITALIZATION.] Future Scheduled Test HYPERTENSI ON MANAGEMENT; RN TO ASSESS AND TEACH, OVAL OR CIRCULAR GLASS CUTTER/STAKEHOLDER MANAGER TO OBSERVE AND TEACH WARNING SIGNS AND SYMPTOMS TO AVOID HOSPITALIZATION. [code = HYPERTENSION MANAGEMENT; RN TO ASSESS AND TEACH, OVAL OR CIRCULAR GLASS CUTTER/STAKEHOLDER MANAGER TO OBSERVE AND TEACH WARNING SIGNS AND SYMPTOMS TO AVOID HOSPITALIZATION.] Future Scheduled Test ARRHYTHMIA MANAGEMENT; RN TO ASSESS AND TEACH, OVAL OR CIRCULAR GLASS CUTTER/STAKEHOLDER MANAGER TO OBSERVE AND TEACH WARNING SIGNS AND SYMPTOMS TO AVOID HOSPITALIZATION. [code = ARRHYTHMIA MANAGEMENT; RN TO ASSESS AND TEACH, OVAL OR CIRCULAR GLASS CUTTER/STAKEHOLDER MANAGER TO OBSERVE AND TEACH WARNING SIGNS AND SYMPTOMS TO AVOID HOSPITALIZATION.] Future Scheduled Test PAIN MANAG EMENT; RN TO ASSESS AND TEACH, STAKEHOLDER MANAGER/OVAL OR CIRCULAR GLASS CUTTER TO OBSERVE AND TEACH AND PROVIDE EDUCATION ON PAIN MANAGEMENT TECHNIQUES. [code = PAIN MANAGEMENT; RN TO ASSESS AND TEACH, STAKEHOLDER MANAGER/OVAL OR CIRCULAR GLASS CUTTER TO OBSERVE AND TEACH AND PROVIDE EDUCATION ON PAIN MANAGEMENT TECHNIQUES.] Future Scheduled Test SKIN INTEG RITY RN TO ASSESS AND TEACH, OVAL OR CIRCULAR GLASS CUTTER/STAKEHOLDER MANAGER TO OBSERVE AND TEACH INTEGUMENTARY STATUS TO IDENTIFY CHANGES AND INTERVENE TO MINIMIZE COMPLICATIONS. PROVIDE SKILLED TEACHING OF GENERAL WOUND AND SKIN CARE AND PREVENTION RELATED TO ACTUAL ALTERED SKIN INTEGRITY [code = SKIN INTEGRITY RN TO ASSESS AND TEACH, OVAL OR CIRCULAR GLASS CUTTER/STAKEHOLDER MANAGER TO OBSERVE AND TEACH INTEGUMENTARY STATUS TO IDENTIFY CHANGES AND INTERVENE TO MINIMIZE COMPLICATIONS. PROVIDE SKILLED TEACHING OF GENERAL WOUND AND SKIN CARE AND PREVENTION RELATED TO ACTUAL ALTERED SKIN INTEGRITY ] Future Scheduled Test SN TO PERF ORM/TEACH PATIENT/CAREGIVER WOUND CARE TO PODIATRY PROCEDURE WOUND TO RIGHT SECOND TOE: CLEANSE WITH NORMAL SALINE, APPLY NEOSPORIN, COVER WITH DRY PROTECTIVE DRESSING, SECURE WITH TAPE. CHANGE DRESSING EVERY 2 DAYS AND PRN FOR SOILAGE OR DISPLACEMENT PATIENT AND DAUGHTER TO DO TREATMENT IN NURSING ABSENCE SN TO PERFORM/TEACH PATIENT/CAREGIVER WOUND CARE TO PODIATRY PROCUDURE WOUND TO RIGHT THIRD TOE: CLEANSE WITH NORMAL SALINE, APPLY NEOSPORIN, COVER WITH DRY PROTECTIVE DRESSING, SECURE WITH TAPE. CHANGE DRESSING EVERY 2 DAYS AND PRN FOR SOILAGE OR DISPLACEMENT PATIENT AND DAUGHTER TO DO TREATMENT IN NURSING ABSENCE [code = SN TO PERFORM/TEACH PATIENT/CAREGIVER WOUND CARE TO PODIATRY PROCEDURE WOUND TO RIGHT SECOND TOE: CLEANSE WITH NORMAL SALINE, APPLY NEOSPORIN, COVER WITH DRY PROTECTIVE DRESSING, SECURE WITH TAPE. CHANGE DRESSING EVERY 2 DAYS AND PRN FOR SOILAGE OR DISPLACEMENT PATIENT AND DAUGHTER TO DO TREATMENT IN NURSING ABSENCE SN TO PERFORM/TEACH PATIENT/CAREGIVER WOUND CARE TO PODIATRY PROCUDURE WOUND TO RIGHT THIRD TOE: CLEANSE WITH NORMAL SALINE, APPLY NEOSPORIN, COVER WITH DRY PROTECTIVE DRESSING, SECURE WITH TAPE. CHANGE DRESSING EVERY 2 DAYS AND PRN FOR SOILAGE OR DISPLACEMENT PATIENT AND DAUGHTER TO DO TREATMENT IN NURSING ABSENCE] Future Scheduled Test FALL REDUC TION MANAGEMENT; RN TO ASSESS AND OBSERVE, OVAL OR CIRCULAR GLASS CUTTER/STAKEHOLDER MANAGER TO OBSERVE FALL RISK FACTORS AND EDUCATE PATIENT/CAREGIVER ON STRATEGIES TO MINIMIZE THE RISK OF FALLING. [code = FALL REDUCTION MANAGEMENT; RN TO ASSESS AND OBSERVE, OVAL OR CIRCULAR GLASS CUTTER/STAKEHOLDER MANAGER TO OBSERVE FALL RISK FACTORS AND EDUCATE PATIENT/CAREGIVER ON STRATEGIES TO MINIMIZE THE RISK OF FALLING.] Goal 2024-10-01 Patient Goal - GET BETTER Goal Patient Goal - H EAL TOES, MAKE SURE BLOOD PRESSURE STABLE Goal Provider Goal - A PLAN OF CARE WILL BE ESTABLISHED THAT MEETS THE PATIENTS NEEDS. PATIENT WILL DEMONSTRATE OXYGEN SATURATION WITHIN NORMAL LIMITS OR PATIENTS OPTIMAL LEVEL ESTABLISHED BY THE PHYSICIAN THROUGHOUT CARE. CHANGES TO CO-MORBID CONDITIONS AND ANY NEW CONDITIONS WILL BE IDENTIFIED AND REPORTED TO THE PHYSICIAN. Goal Provider Goal - PATIENT/CAREGIVER TO VERBALIZE, AND CONSISTENTLY DEMONSTRATE EFFECTIVE, SAFE MANAGEMENT OF MEDICATION INCLUDING KNOWLEDGE OF EFFECTIVENESS, POTENTIAL SIDE EFFECTS AND DRUG REACTIONS AND WHEN TO CONTACT THE APPROPRIATE CARE PROVIDER. PATIENT/CAREGIVER WILL BE ABLE TO VERBALIZE UNDERSTANDING OF MEDICATION REGIMEN AND ACCURATELY TAKE MEDICATIONS PRESCRIBED WITHOUT ADVERSE EFFECTS BY EOE Goal Provider Goal - PATIENT/CAREGIVER WILL VERBALIZE UNDERSTANDING OF SIGNS AND SYMPTOMS THAT PUT THE PATIENT AT RISK FOR HOSPITALIZATION /EMERGENCY ROOM VISITS, WHEN TO NOTIFY NURSE/PHYSICIAN OF COMPLICATIONS/DECLINE AND WHEN TO CALL 911. Goal Provider Goal - PATIENT / CAREGIVER WILL VERBALIZE/DEMONSTRATE UNDERSTANDING OF MEASURES TO MANAGE ALTERED CARDIOVASCULAR STATUS BY EOE Goal Provider Goal - PATIENT / CAREGIVER WILL VERBALIZE/DEMONSTRATE AN ABILITY TO ADHERE TO SELF-MANAGEMENT OF HTN TO MINIMIZE COMPLICATIONS AND AVOID HOSPITALIZATION BY END OF EPISODE. Goal Provider Goal - PATIENT / CAREGIVER WILL VERBALIZE/DEMONSTRATE AN ABILITY TO ADHERE TO SELF-MANAGEMENT OF HEART ARRHYTHMIA TO MINIMIZE COMPLICATIONS AND AVOID HOSPITALIZATION BY END OF EPISODE. Goal Provider Goal - PATIENT / CAREGIVER WILL VERBALIZE / DEMONSTRATE UNDERSTANDING OF PAIN CONTROL MEASURES BY EOE Goal Provider Goal - CHANGES IN SKIN INTEGRITY STATUS WILL BE IDENTIFIED AND REPORTED TO THE PHYSICIAN FOR PROMPT INTERVENTION. PATIENT / CAREGIVER WILL VERBALIZE/DEMONSTRATE ADEQUATE KNOWLEDGE OF INTEGUMENTARY STATUS AND APPROPRIATE MEASURES TO PROMOTE SKIN INTEGRITY AND PREVENT INJURY BY EOE Goal Provider Goal - PATIENT / CAREGIVER WILL VERBALIZE/DEMONSTRATE ABILITY TO PERFORM WOUND CARE. WOUND STATUS WILL IMPROVE EVIDENCED BY A DECREASE IN SIZE, DRAINAGE, ABSENCE OF INFECTION, AND DECREASED PAIN BY EOE Goal Provider Goal - PATIENT/CAREGIVER WILL VERBALIZE/DEMONSTRATE UNDERSTANDING OF FALL RISK FACTORS AND IMPLEMENT STRATEGIES TO MINIMIZE FALL RISK. PATIENT/CAREGIVER WILL VERBALIZE/DEMONSTRATE AN ABILITY TO ADHERE TO FALL REDUCTION SELF-MANAGEMENT AND LIFE-STYLE CHANGES BY EOE Encounters Start Date/Time End Date/Time Encounter Type Admission Type Attending [facility] Care Department Encounter ID Discharge Date Discharge Status Discharge Condition Discharge Reason Percent Goals Met 2024-10-05 00:00:00 2024-12-03 00:00:00 [facility] [id number] [phone]
== END 2024-10-22 12:57 | disposition home or self-care (01) ==
PROVIDERS: PCP Internal Medicine; Visit Provider Internal Medicine
DX: R60.0 Localized edema (principal); L03.115 Cellulitis of right lower limb; N18.31 Chronic kidney disease, stage 3a; D63.1 Anemia in chronic kidney disease

== ENCOUNTER 2024-10-25 12:46 | Emergency (ER) | payer MEDICARE, SELFPAY ==
[2024-10-25 12:58] VITALS: BP 133/79; PULSE 90; RESP 18; TEMP 36.3; BMI 16.1
[2024-10-25 13:39] VITALS: BP 136/88; PULSE 95; RESP 20; O2SAT 100
--- NOTE | 2024-10-25 13:54 | PC.NURSE ---
Addendum entered by Nery Jordan RN 10/25/24 13:56: Patient is an 84-year-old female presenting with lower extremity swelling. Lower extremity swelling: - First noted significant swelling in the lower legs a few months ago, with worsening over the past month. - The swelling affects both legs, with the right leg experiencing oozing fluid. - During episodes of swelling, patient visited the emergency room but reported limited interventions. - Swelling is reportedly more pronounced at the end of the day. - Amlodipine was suspected to contribute to swelling but has since been discontinued. - No shortness of breath or problems lying flat, suggesting no cardiac etiology. Cellulitis: - Diagnosed with cellulitis, likely secondary to skin breakdown due to swelling. - Treated initially with antibiotics, though recurrence of symptoms noted. - No report of fever or systemic symptoms, but noted scratch Patient presents with same symptoms as above from oncologists office. Alert and oriented. noteman maintained and NSR noted. Lungs clear bilat. Respirations even and non-labored. Abdomen soft, flat, non-tender with positive bowel sounds. Positive pedal pulses with LE edema noted. Right LE sl reddened with small open blister. Patient has been on abx therapy since 10/14. Original Note: Medical History Hyperlipidemia GERD (gastroesophageal reflux disease) Colitis HTN (hypertension) Cavitary lesion of lung History of breast cancer Diarrhea
--- NOTE | 2024-10-25 13:56 | ED.GENADULT ---
HPI - General Adult General Chief complaint: General Medical Stated complaint: cellulitis Time Seen by Provider: 10/25/24 13:55 Source: patient, RN notes reviewed and old records reviewed Mode of arrival: wheelchair Limitations: no limitations History of Present Illness ED Provider: Myrtle REEDER narrative: Patient is an 84-year-old female with history of right lower extremity cellulitis, breast cancer in the past, hypertension, cavitary lesion of lung, colitis, GERD, hyperlipidemia presenting to the emergency department from oncology office for evaluation of right lower extremity cellulitis, was also noted to have hypomagnesemia. She states that she typically ambulates with a walker but lately that has been difficult due to right foot pain. Denies fevers, chills, body aches. Denies any chest pain, shortness of breath, palpitations, dizziness or lightheadedness. MD complaint: Cellulitis, abnormal labs Related Data Home Medications ?Medication ?Instructions ?Recorded ?Confirmed loratadine 10 mg tablet 10 mg PO DAILY 07/17/24 10/26/24 Bifidobacterium longum 10 million 10,000,000 cell PO DAILY 10/26/24 10/26/24 cell capsule (Align (B.longum)) loperamide 1 mg/7.5 mL oral liquid 2 mg PO DAILY 10/26/24 10/26/24 (Imodium A-D) metoprolol succinate 25 mg 12.5 mg PO DAILY 10/26/24 10/26/24 tablet,extended release 24 hr omeprazole 40 mg capsule,delayed 40 mg PO DAILY@0630 10/26/24 10/26/24 release Previous Rx's ?Medication ?Instructions ?Recorded calcium carbonate (Calcium 600) 600 mg PO BID #180 tabs 04/05/24 cholecalciferol (vitamin D3) 25 25 mcg PO DAILY #90 caps 04/05/24 mcg (1,000 unit) capsule doxycycline hyclate 100 mg tablet 100 mg PO BID #14 tabs 10/22/24 furosemide 20 mg tablet (Lasix) 20 mg PO DAILY 14 days #14 tabs 10/22/24 magnesium oxide 400 mg (241.3 mg 1 tab PO DAILY #90 tabs 10/22/24 magnesium) tablet doxycycline hyclate 100 mg tablet 100 mg PO BID 7 days #14 tabs 10/26/24 Allergies Allergy/AdvReac Type Severity Reaction Status Date / Time codeine (CODEINE) Allergy Intermediate MOOD Verified 10/25/24 13:06 CHANGE, dizziness indigotindisulfonic acid Allergy Intermediate increased Verified 10/25/24 13:06 (Indigo [place]) blood pressure cephalexin (From KEFLEX) Allergy Unknown pt cannot Verified 10/25/24 13:06 remember reaction lisinopril (LISINOPRIL) AdvReac Intermediate dry cough Verified 10/25/24 13:06 simvastatin (From ZOCOR) AdvReac Unknown pt can't Verified 10/25/24 13:06 remember reaction Review of Systems Review of Systems: As per HPI Yes all other systems are reviewed and are negative Constitutional: Constitutional: Reports as per HPI PMFSH Past Medical History Medical History Hyperlipidemia GERD (gastroesophageal reflux disease) Colitis HTN (hypertension) Cavitary lesion of lung History of breast cancer Diarrhea Surgical History History of hip surgery History of mammogram History of excision of mass History of esophagogastroduodenoscopy (EGD) History of colonoscopy History of lumpectomy of right breast History of hysterectomy Family History Family History Father CHF (congestive heart failure) Mother Diabetes mellitus Brother No problems noted. Sister No problems noted. Daughter No problems noted. Son No problems noted. Son No problems noted. Social History Social History Household Members: None Housing: House Are you a primary intensive care ambulance paramedic to a significant other at home: No Do you presently have visiting nurse or other home services: No Alcohol intake: never Patient Tobacco Use Status: Never used Tobacco Smoked in Last 30 Days: No e-Cigarette/Vaping Use: Never Used Second Hand Smoke Exposure: No Use of substances other than those prescribed or required for medical reasons: No Advance Directives: Yes Advance Directives on File: Yes Advance Directives Date on File: 12/16/19 Do you have a plan to hurt others: No Plan service: No Current occupational status: retired Cognitive needs: No Hearing needs: No Vision needs: Yes Physical Exam ED Vital Signs: Vital Signs - 24 hr 10/25/24 13:39 10/25/24 14:47 10/25/24 16:00 Temperature 98.0 F Pulse Rate 95 80 81 Respiratory Rate 20 16 16 Blood Pressure 136/88 138/55 L 125/71 Pulse Oximetry 100 100 100 Oxygen Delivery Method Room Air Room Air Room Air 10/25/24 18:00 10/25/24 21:22 10/26/24 06:00 Temperature 97.8 F 97.8 F Pulse Rate 77 73 75 Respiratory Rate 16 14 14 Blood Pressure 120/36 L 149/68 H 136/61 Pulse Oximetry 100 100 100 Oxygen Delivery Method Room Air Room Air Room Air 10/26/24 13:14 Temperature Pulse Rate 75 Respiratory Rate Blood Pressure 136/61 Pulse Oximetry Oxygen Delivery Method BMI result Body Mass Index 16.1 Vital signs have been reviewed and appear to be correct. Blood pressure normal. Heart rate normal. Respiratory rate normal. Temperature normal. Oxygen saturation normal. Const General: cooperative, healthy appearing and no acute distress Nutritional Appearance: thin Orientation/consciousness: oriented to person, oriented to place, oriented to time and patient oriented x3 HENMT Head: Yes normocephalic and Yes atraumatic Ears: external ears normal General nose exam: Normal external nose present Face and sinus: Yes face symmetric Mouth: oropharynx normal and moist mucous membranes Throat: Yes uvula midline Eyes Pupils: Equal, round and reactive pupils present Neck Neck: Yes normal visual inspection and Yes supple Resp Effort & Inspection: normal respiratory effort and able to speak in complete sentences Auscultation: clear to auscultation bilaterally Cardio Rate: regular rate Rhythm: regular rhythm Heart sounds: S1 normal heart sound present and S2 normal heart sound present GI Palpation (GI): Soft to palpation and nontender Auscultation: normoactive bowel sounds General: Yes no CVA tenderness Back/Spine/Pelvis Back: no CVA tenderness Skin General skin exam: elasticity normal and turgor normal Neuro General: oriented to person, oriented to place, oriented to time, patient oriented x3, moves all extremities, no focal motor deficits and CN's II-XI intact bilaterally Cranial nerves: Yes Equal, round and reactive pupils present Cognition (Neuro): normal cognition Extrem Other: General: Yes full ROM, Yes no pedal edema and Yes no calf tenderness Right lower extremity: lower leg (wound to distal posterior leg, see photos, assoc erythema/warmth) and foot (erythema with wound to dorsal foot, scab to plantar foot) Details: normal capillary refill, tenderness Location: of the dorsal foot, toes with normal ROM and warmth Psych Mental Status: mental status grossly normal Affect: normal affect Thought process: Normal thought process present Course Course Course Narrative: 10/26/2024 0915 Chery Mary PA-C ---> Observation continues. Case management continues to follow. 10/26/2024 1334 Chery Mary PA-C ---> Observation care revealed the the patient does not meet medical necessity for hospitalization. Final disposition discussed with the patient of discharge to [facility]. Patient completed observation care at 1334 on 10/26/2024, total time spent in observation care was 19 hours, and 1 minute. Medications Administered Generic Name Dose Route Start Last Admin Trade Name Freq PRN Reason Stop Dose Admin Acetaminophen 975 mg 10/25/24 22:18 10/25/24 22:49 Acetaminophen 325 Mg Tablet PO 975 mg Q6H PRN Administration Pain, Moderate(Pain Scale 4-6) Doxycycline Monohydrate 100 mg 10/25/24 21:00 10/26/24 08:30 Doxycycline Monohydrate 100 Mg Capsule PO 11/01/24 09:01 100 mg BID АЛЕКСАНДР Administration Furosemide 20 mg 10/26/24 10:45 10/26/24 10:44 Furosemide 20 Mg Tablet PO 20 mg DAILY АЛЕКСАНДР Administration Protocol Loratadine 10 mg 10/26/24 10:45 10/26/24 10:44 Loratadine 10 Mg Tablet PO 10 mg DAILY АЛЕКСАНДР Administration Magnesium Oxide 400 mg 10/26/24 10:45 10/26/24 13:15 Magnesium Oxide 400 Mg Tablet PO 400 mg DAILY АЛЕКСАНДР Administration Metoprolol Succinate 12.5 mg 10/26/24 10:45 10/26/24 13:14 Metoprolol Succinate Er 12.5 Mg Halftab.Er.24h PO 12.5 mg DAILY АЛЕКСАНДР Administration Protocol Vitamin D 25 mcg 10/26/24 10:45 10/26/24 10:44 Cholecalciferol (Vitamin D3) 25 Mcg Tablet PO 25 mcg DAILY АЛЕКСАНДР Administration Discontinued Medications Generic Name Dose Route Start Last Admin Trade Name Freq PRN Reason Stop Dose Admin Ceftriaxone Sodium 1 gm 10/25/24 15:43 10/25/24 15:59 Ceftriaxone Sodium 1 Gm Vial IVPUSH 10/25/24 15:44 1 gm ONCE ONE Administration Magnesium Sulfate 2 gm in 50 mls @ 150 mls/hr 10/25/24 15:28 10/25/24 18:58 Magnesium Sulfate/H2o IV 10/25/24 15:47 Infused ONCE ONE Infusion Medical Decision Making Medical Decision Making [facility] Narrative: Patient is an 84-year-old female with history of right lower extremity cellulitis, breast cancer in the past, hypertension, cavitary lesion of lung, colitis, GERD, hyperlipidemia presenting to the emergency department from oncology office for evaluation of right lower extremity cellulitis, was also noted to have hypomagnesemia. On exam patient is awake, A+Ox3, VS WNL, afebrile, normal neurological exam without focal deficits, physical exam findings as above. Given reported symptoms and physical exam findings, initial differential includes but is not limited to cellulitis, hypomagnesemia, other electrolyte abnormality. Labs notable for no leukocytosis, hypomagnesemia of 1.1, hypocalcemia, elevated CRP. 2 g IV magnesium ordered as well as ceftriaxone. Case discussed with hospitalist, Dr. Kaba who does not feel patient requires inpatient admission. Nurse spoke with patient's daughter via telephone who states that the patient lives home alone and has not been able to get around on her own the past few days, does not feel she is safe for discharge home. Magnesium level improved on repeat labs after IV repletion. Will place patient on physician observation for PT and CM evaluation. Differential Diagnosis Differential Diagnoses: The differential diagnosis associated with the presentation includes as per [facility] Admission/Observation Consideration of admission/observation: Escalation of care including admission/observation considered Hospitalist, Dr. Kaba declined admission Consult Healthcare Provider Management of the patient was discussed with: Hospitalist Lab Data [facility] Lab Attestation statement: I reviewed the patient's lab results. as per [facility] 10/25/24 15:02 10/25/24 15:02 Labs: Lab Results 10/25/24 10/25/24 Range/Units 15:02 18:04 WBC 6.0 (4.8-10.8) X10*3/uL RBC 3.29 L (4.20-5.50) X10*6/uL Hgb 9.1 L (12.0-16.0) g/dl Hct 29.6 L (37.0-47.0) % MCV 90.0 (80.0-98.0) fL MCH 27.7 (27.0-33.0) pg MCHC 30.7 L (31.0-35.0) g/dl RDW 19.6 H (11.0-16.0) % Plt Count 138 L (160-400) X10*3/uL MPV 9.1 L (9.4-12.3) fL Immature Gran % (Auto) 0.3 (0.0-0.4) % Neut % (Auto) 75.0 H (45-73) % Lymph % (Auto) 17.6 L (20-40) % [place] % (Auto) 5.9 (2-11) % Eos % (Auto) 0.5 (0-4) % Baso % (Auto) 0.7 (0-2) % Lymph # (Auto) 1.1 L (1.2-4.9) X10*3/uL [place] # (Auto) 0.4 (0.1-1.2) X10*3/uL Eos # (Auto) 0.0 (0.0-0.4) X10*3/uL Baso # (Auto) 0.0 (0.0-0.2) X10*3/uL Abs Immat Gran (auto) 0.02 (0.00-0.03) X10*3/uL Absolute Neuts (auto) 4.5 (2.0-8.3) x10*3/uL Absolute Nucleated RBC 0.000 (0.0-0.012) X10*3/uL Nucleated RBC % (auto) 0.0 (0.0-0.2) /100WBC ESR 38 H (0-20) MM/HR Sodium 133 L (135-145) mmol/L Potassium 3.8 (3.3-5.1) mmol/L Chloride 100 (96-108) mmol/L Carbon Dioxide 27 (22-29) mmol/L Anion Gap 10 L (12-20) BUN 13 (9-16) mg/dL Creatinine 0.74 (0.5-1.4) mg/dL Estim Creat Clear Calc 34.1 Estimated GFR > 60 Random Glucose 102 (60-115) mg/dL Calcium 7.8 L (8.4-10.2) mg/dL Magnesium 1.1 L* 2.9 H (1.6-2.6) mg/dL Total Bilirubin 0.7 (0.0-1.0) mg/dL AST 18 (5-31) U/L ALT < 6 (0-31) U/L Alkaline Phosphatase 59 (39-117) U/L C-Reactive Protein 6.53 H (< or = 0.50) mg/dL Total Protein 5.8 L (6.5-8.0) g/dL Albumin 2.7 L (3.5-5.0) g/dL Independent Historian Clinical information obtained from an independent historian. History obtained from or confirmed by: Other (daughter) External Record Review External record reviewed: Inpatient record, Office record and Outpatient record Prescription Management I considered prescription management with: Antibiotic and Other Discharge Plan Discharge Clinical Impression: Cellulitis of right lower leg, Hypomagnesemia Patient Disposition: Xfer SNF Transfer Details: [facility] Instructions: Cellulitis (ED), Hypomagnesemia (ED) Additional Instructions: You were evaluated in the emergency department today for an infection of your right lower leg called cellulitis. You are being prescribed a course of antibiotics, complete the full course as prescribed even if symptoms improve. Your magnesium was also noted to be low in the emergency department today. Continue to take your magnesium supplements as prescribed. Prescriptions: New doxycycline hyclate 100 mg tablet 100 mg PO BID 7 Days Qty: 14 0RF No Action calcium carbonate [Calcium 600] 600 mg calcium (1,500 mg) Tablet 600 mg PO BID Qty: 180 4RF cholecalciferol (vitamin D3) 25 mcg (1,000 unit) capsule 25 mcg PO DAILY Qty: 90 3RF magnesium oxide 400 mg (241.3 mg magnesium) Tablet 1 tab PO DAILY Qty: 90 1RF loratadine 10 mg Tablet 10 mg PO DAILY omeprazole 40 mg capsule,delayed release(DR/EC) 40 mg PO DAILY@0630 metoprolol succinate 25 mg tablet extended release 24 hr 12.5 mg PO DAILY Align (B.longum) 10 million cell Capsule 10,000,000 cell PO DAILY loperamide [Imodium A-D] 1 mg/7.5 mL Liquid 2 mg PO DAILY doxycycline hyclate 100 mg tablet 100 mg PO BID Qty: 14 0RF furosemide [Lasix] 20 mg tablet 20 mg PO DAILY 14 Days Qty: 14 0RF Referrals: Regina Cole MD [Primary Care Provider, Internal Medicine] Print Language: [place] Island[place]
[2024-10-25 14:47] VITALS: BP 138/55; PULSE 80; RESP 16; TEMP 36.7; O2SAT 100
[2024-10-25 15:08] LABS: MANUAL DIFF FLAG NO
[2024-10-25 15:12] LABS: Hematocrit 29.6 % (37.0-47.0); Hemoglobin 9.1 g/dl (12.0-16.0); Imm Gran Abs Auto 0.02 X10*3/uL (0.00-0.03); Imm Gran Pct Auto 0.3 % (0.0-0.4); Lymphocytes Absolute Auto 1.1 X10*3/uL (1.2-4.9); Mean Corpuscular HGB Conc 30.7 g/dl (31.0-35.0); Mean Corpuscular Hemoglobin 27.7 pg (27.0-33.0); Mean Corpuscular Volume 90.0 fL (80.0-98.0); NRBC Abs Auto 0.000 X10*3/uL (0.0-0.012); NRBC Pct Auto 0.0 /100WBC (0.0-0.2); Platelet Count 138 X10*3/uL (160-400); Red Blood Count 3.29 X10*6/uL (4.20-5.50); White Blood Count 6.0 X10*3/uL (4.8-10.8)
[2024-10-25 15:29] LABS: Alanine Aminotransferase < 6 U/L (0-31); Albumin Level 2.7 g/dL (3.5-5.0); Alkaline Phosphatase 59 U/L (39-117); Anion Gap 10 (12-20); Aspartate Amino Transferase 18 U/L (5-31); Blood Urea Nitrogen 13 mg/dL (9-16); Calcium 7.8 mg/dL (8.4-10.2); Carbon Dioxide 27 mmol/L (22-29); Chloride 100 mmol/L (96-108); Creatinine Clr Calc Pharmacy 34.1; Estimated Glomerular Filt Rate > 60; Magnesium 1.1 mg/dL (1.6-2.6); Potassium 3.8 mmol/L (3.3-5.1); Sodium 133 mmol/L (135-145); Total Protein 5.8 g/dL (6.5-8.0)
[2024-10-25] MEDS: Magnesium Sulfate/H2O 2 GM/50 ML PIGGYBACK IV (15:58)
[2024-10-25 16:00] VITALS: BP 125/71; PULSE 81; RESP 16; O2SAT 100
--- NOTE | 2024-10-25 16:23 | PC.NURSE ---
Updated family regarding plan of care.
[2024-10-25 18:00] VITALS: BP 120/36; PULSE 77; RESP 16; O2SAT 100
[2024-10-25 18:24] LABS: Magnesium 2.9 mg/dL (1.6-2.6)
--- NOTE | 2024-10-25 19:03 | PC.NURSE ---
this rn assumed care of pt, pt resting in stretcher, no acute distress noted.
[2024-10-25 21:22] VITALS: BP 149/68; PULSE 73; RESP 14; TEMP 36.6; O2SAT 100
[2024-10-26 06:00] VITALS: BP 136/61; PULSE 75; RESP 14; TEMP 36.6; O2SAT 100
--- NOTE | 2024-10-26 07:01 | PC.NURSE ---
patient arrived to overflow and oriented to staff and unit. She reported 6/10 pain to reddened R leg. small open wound to top of foot open to air. Pt with 4 small scabbed wounds to base of foot. medicated with apap with + effect.
--- NOTE | 2024-10-26 08:30 | PC.NURSE ---
pt is on a 14 dose course of doxy - she states she cannot take pills whole. she insists that she cannot swallow the doxy. after conversation with pharmacy, OK to open doxy capsule and give in pudding. Pt drank full glass of water after and will be in upright position for 30 minutes after.
--- NOTE | 2024-10-26 08:49 | PC.NURSE ---
med rec - completed with pharmacy claims and confirmed with patient. pt states her doctor stopped her metoprolol and is instead taking amlodipine
--- NOTE | 2024-10-26 10:28 | PHA.MEDREC ---
Pharmacy Consult ? Medication Reconciliation Pharmacy has completed the medication reconciliation.PHARMACY REVIEWED MED REC DONE BY NURSING AND FOUND SEVERAL INCONSISTENCIES. AFTER SPEAKING TO PATIENT AND FAMILY MEMBER AT BEDSIDE IT WAS DETERMINED THAT AMLODIPINE WAS ADDED TO HOME MED LIST IN ERROR IT WAS DISCONTINUED BY PCP DUE TO INCREASED SWELLING. ALSO MISSING FROM THE HOME MED LIST WERE DAILY LOPERAMIDE TAKEN DUE TO CHRONIC DIARRHEA, METOPROLOL, AND OMEPRAZOLE. CLAIMS AND MEDICAL RECORDS USED TO CONFIRM DOSES FREQUENCY PT IS SOMEWHAT UNSURE OF THOSE.
--- NOTE | 2024-10-26 11:32 | MHC.CM.PN ---
Addendum entered by Coco Medina 10/26/24 14:08: PT HAS BEEN ACCEPTED AT [facility]. PT/DAUGHTER ARE IN AGREEMENT WITH PLAN. RN/PROVIDER MADE AWARE. BLS TRANSPORT BOOKED FOR 3: 30 PM VIA [facility]. Original Note: CM RECEIVED ED CM CONSULT. CM MET WITH PT/FAMILY AT BEDSIDE. PT HAS BEEN RECOMMENDED FOR STR BUT HAS NO QHS. PT IS AGREEABLE TO ACUTE REHAB REFERRALS AND IF NOT ACCEPTED, WILL RETURN HOME WITH INCREASED FAMILY SUPPORT AND [facility]. CM HAS PLACED A [facility] REFERRAL FOR REQUEST FOR ASSIST IN THE HOME. PT USES WALKER FOR MOBILITY. + HCP ON FILE AND VERIFIED. PCP DR. HENDRICKS. DP: [facility] VS HOME WITH SERVICES. BLS TRANSPORT VS FAMILY. CM WILL AWAIT RESPONSES FROM [facility] REFERRALS.
--- NOTE | 2024-10-26 12:59 | PC.NURSE ---
Following up w/ pharmacy on missing meds. Per pharmacist, will send down shortly
[2024-10-26 13:14] VITALS: BP 136/61; PULSE 75
[2024-10-26] MEDS: Metoprolol Succinate ER 12.5 MG HALFTAB.ER.24H PO (13:14)
[2024-10-26 14:00] VITALS: BP 106/60; PULSE 85; RESP 15; TEMP 36.9; O2SAT 100
[2024-10-26 14:49] VITALS: BP 106/60; PULSE 85; RESP 15; TEMP 36.9; O2SAT 100
[2024-10-26 15:30] VITALS: BP 106/60; PULSE 85; RESP 15; TEMP 36.9; O2SAT 100
== END 2024-10-26 15:50 | disposition skilled nursing facility (03) ==
PROVIDERS: Registered Nurse Emergency; Emergency Provider Emergency Medicine; PCP Internal Medicine
DX: L03.115 Cellulitis of right lower limb (principal); E83.42 Hypomagnesemia; R79.89 Other specified abnormal findings of blood chemistry; R26.2 Difficulty in walking, not elsewhere classified; Z79.899 Other long term (current) drug therapy
CPT/HCPCS: 36415; 80053; 83735; 85025; 85652; 86140; 96365; 96366; 96375; 97162; 99285; J0696; J3475

== ENCOUNTER 2024-11-08 06:28 | Emergency (ER) | payer MEDICARE, SELFPAY ==
[2024-11-08] VITALS (8 sets, daily range): BP systolic 103–157; BP diastolic 43–73; PULSE 78–92; RESP 15–18; TEMP 36.3–36.9; O2SAT 93–100; BMI 17.6
--- NOTE | ~2024-11-08 | US_ITS ---
EXAMINATION: US NONINVASIVE ASSESSMENT OF THE RIGHT LOWER EXTREMITY WITH ARTERIAL DUPLEX. CLINICAL INFORMATION: Rule out vascular thrombosis, evaluate for leg ischemia. COMPARISON: None available. TECHNIQUE: Duplex Doppler techniques with waveform analysis and measurement of velocities in the right common femoral, profunda femoris, superficial femoral, popliteal and tibial arteries were performed. FINDINGS: Atheromatous Plaque: There is calcific atheromatous plaque present diffusely. RIGHT FEMORAL RUNOFF VELOCITIES: The right common femoral artery measures 86 cm/s and triphasic. The right profunda femoral artery is 60 cm/s and is monophasic. The right proximal superficial femoral artery measures 83 cm/s and triphasic. The right mid superficial femoral artery is 62 cm/s and biphasic. The right distal right superficial femoral artery could not be well seen due to calcified plaque. The right popliteal velocity measures 23 cm/s and is monophasic. The right posterior tibial artery velocity measures 20 cm/s and is monophasic. The right peroneal artery velocity measures 28 cm/s and is monophasic. US/US arterial duplex LE RT IMPRESSION: 1. Extensive calcific atheromatous disease of the right lower extremity arterial structures. 2. No acute thrombus is identified. 3. There is evidence for significant peripheral vascular disease. Electronically signed by: Erasmo Ahn MD 11/08/2024 10:39 AM EDT
--- NOTE | ~2024-11-08 | XR_ITS ---
EXAMINATION: XR SHOULDER, RIGHT CLINICAL INFORMATION: fall, pain COMPARISON: None available. TECHNIQUE: Two views of the right shoulder. FINDINGS: There is osteopenia. No definitive fracture, dislocation, or suspicious bone lesion. Normal alignment. The glenohumeral joint demonstrates mild degenerative arthritis. The AC joint is normal. There is a type II acromion. No undersurface spurring. The subacromial space is preserved. Soft tissues demonstrate vascular calcifications. XR/XR shoulder RT min 2V IMPRESSION: 1. No definite acute bony abnormality of the right shoulder. Electronically signed by: Erasmo Ahn MD 11/08/2024 09:01 AM EDT
--- NOTE | 2024-11-08 07:15 | PC.NURSE ---
Addendum entered by Nery Jordan RN 11/08/24 07:17: Patient is an 84-year-old female with history of right lower extremity cellulitis, breast cancer in the past, hypertension, cavitary lesion of lung, colitis, GERD, hyperlipidemia presenting to the emergency department from home s/p mechanical fall. Patient states legs felt shaky and she fell. Was unable to get off the floor and pressed life alert for the fire department to assist. Patient sent to [facility] with last visit and was discharged yesterday. Alert and oriented but frail. Lungs clear bilat. Respirations even and non-labored. Abdomen soft, flat, non-tender with positive bowel sounds. Positive pedal pulses with trace edema. Dressing CD@I to right foot for some mild cellulitis. Original Note: Medical History Hyperlipidemia GERD (gastroesophageal reflux disease) Colitis HTN (hypertension) Cavitary lesion of lung History of breast cancer Diarrhea
--- NOTE | 2024-11-08 08:09 | PC.NURSE ---
Dressing to right foot removed. Skin reddened and thick. Several dark scabbed areas noted. One open area to the top of her foot with purplish surrounding tissue draining some [place] drainage. Please refer to pictures provided.
--- NOTE | 2024-11-08 08:16 | ED.GENADULT ---
HPI - General Adult General Chief complaint: Fall Stated complaint: Fall Time Seen by Provider: 11/08/24 07:06 Source: patient Mode of arrival: ambulatory Limitations: no limitations History of Present Illness ED Provider: HPI narrative: 84-year-old woman just released from rehab facility was home, and states her legs were giving out and she started fall on the ground, she bumped his shoulder on the right no head strike no LOC no headache no neck pain, has wounds in the right lower extremities that has been getting changed reportedly by her daughter and in the process of obtain a VNA. Related Data Home Medications ?Medication ?Instructions ?Recorded ?Confirmed loratadine 10 mg tablet 10 mg PO DAILY 07/17/24 11/08/24 Bifidobacterium longum 10 million 10,000,000 cell PO DAILY 10/26/24 11/08/24 cell capsule (Align (B.longum)) loperamide 1 mg/7.5 mL oral liquid 2 mg PO DAILY 10/26/24 11/08/24 (Imodium A-D) metoprolol succinate 25 mg 12.5 mg PO DAILY 10/26/24 11/08/24 tablet,extended release 24 hr omeprazole 40 mg capsule,delayed 40 mg PO DAILY@0630 10/26/24 11/08/24 release gabapentin 100 mg capsule 100 mg PO DIRECTED 11/08/24 11/08/24 Previous Rx's ?Medication ?Instructions ?Recorded calcium carbonate (Calcium 600) 600 mg PO BID #180 tabs 04/05/24 cholecalciferol (vitamin D3) 25 25 mcg PO DAILY #90 caps 04/05/24 mcg (1,000 unit) capsule furosemide 20 mg tablet (Lasix) 20 mg PO DAILY 14 days #14 tabs 10/22/24 magnesium oxide 400 mg (241.3 mg 1 tab PO DAILY #90 tabs 10/22/24 magnesium) tablet Allergies Allergy/AdvReac Type Severity Reaction Status Date / Time codeine (CODEINE) Allergy Intermediate MOOD Verified 11/08/24 06:53 CHANGE, dizziness indigotindisulfonic acid Allergy Intermediate increased Verified 11/08/24 06:53 (Indigo [place]) blood pressure cephalexin (From KEFLEX) Allergy Unknown pt cannot Verified 11/08/24 06:53 remember reaction lisinopril (LISINOPRIL) AdvReac Intermediate dry cough Verified 11/08/24 06:53 simvastatin (From ZOCOR) AdvReac Unknown pt can't Verified 11/08/24 06:53 remember reaction Review of Systems Constitutional: Constitutional: Reports as per [facility] Past Medical History Medical History Hyperlipidemia GERD (gastroesophageal reflux disease) Colitis HTN (hypertension) Cavitary lesion of lung History of breast cancer Diarrhea Surgical History History of hip surgery History of mammogram History of excision of mass History of esophagogastroduodenoscopy (EGD) History of colonoscopy History of lumpectomy of right breast History of hysterectomy Family History Family History Father CHF (congestive heart failure) Mother Diabetes mellitus Brother No problems noted. Sister No problems noted. Daughter No problems noted. Son No problems noted. Son No problems noted. Social History Social History Household Members: None Housing: House Are you a primary career specialist to a significant other at home: No Do you presently have visiting nurse or other home services: No Alcohol intake: never Patient Tobacco Use Status: Never used Tobacco e-Cigarette/Vaping Use: Never Used Second Hand Smoke Exposure: No Advance Directives Date on File: 12/16/19 service: No Current occupational status: retired Cognitive needs: No Hearing needs: No Vision needs: Yes Physical Exam ED Vital Signs: Vital Signs - 24 hr 11/08/24 10:13 11/08/24 12:21 11/08/24 13:55 Temperature 97.9 F 97.3 F Pulse Rate 81 78 90 Respiratory Rate 16 18 18 Blood Pressure 134/49 L 141/58 H 116/57 L Pulse Oximetry 99 93 100 Oxygen Delivery Method Room Air Room Air Room Air 11/08/24 21:42 11/09/24 05:31 11/09/24 07:49 Temperature 98.4 F 98.8 F Pulse Rate 92 80 81 Respiratory Rate 15 15 Blood Pressure 103/49 L 108/48 L 107/57 L Pulse Oximetry 98 99 Oxygen Delivery Method Room Air Room Air BMI result Body Mass Index 17.6 Const Other: See pictures of the foot, appears that patient has likely arterial insufficiency, poorly palpable pulses, erythema, these are likely necrotic lesions Atraumatic head, no tenderness along the neck Full range of motion without deformity over the right shoulder S1-S2 plus radial pulses bilaterally Abdomen on exam is benign Pelvis is stable Full range of motion of the hips knees ankles with pes planus deformities and skin changes as described above Course Reevaluation(s) Reevaluation #1: See me a call from [facility], the patient is complaining of leg pain, she takes gabapentin, she received her nighttime dose, she is still complaining of discomfort. We will order p.r.n. Tylenol Time: 00:37 Reevaluation #2: Time: 08:14 Date: 11/09/24 Provider: CHERRIE Walters Patient in physician observation for case management needs. No acute events reported overnight.? No current issues or complaints. VS stable. physical therapy has evaluated patient, is recommending STR. Patient is pending placement at [facility]. Will continue to monitor. Time: : Date: 11/09/24 Provider: CHERRIE Walters Physician observation ended at 09. Per case management, patient will be discharged to short-term rehab at [facility] - patient agreeable. stable at this time. Medications Administered Discontinued Medications Generic Name Dose Route Start Last Admin Trade Name Freq PRN Reason Stop Dose Admin Acetaminophen 650 mg 11/08/24 17:36 11/08/24 17:57 Acetaminophen 325 Mg Tablet PO 11/08/24 17:37 650 mg ONCE ONE Administration Acetaminophen 650 mg 11/09/24 00:34 11/09/24 03:33 Acetaminophen 325 Mg Tablet PO 650 mg Q6H PRN Administration pain,mild Calcium Carbonate 750 mg 11/08/24 21:00 11/09/24 07:49 Calcium Carbonate 750 Mg Tab.Chew PO 750 mg BID АЛЕКСАНДР Administration Furosemide 20 mg 11/09/24 09:00 11/09/24 07:49 Furosemide 20 Mg Tablet PO 20 mg DAILY АЛЕКСАНДР Administration Protocol Gabapentin 100 mg 11/09/24 08:00 11/09/24 07:49 Gabapentin 100 Mg Capsule PO 100 mg BID@0800,1200 АЛЕКСАНДР Administration Gabapentin 200 mg 11/08/24 21:00 11/08/24 20:16 Gabapentin 100 Mg Capsule PO 200 mg BEDTIME АЛЕКСАНДР Administration Loperamide HCl 2 mg 11/09/24 09:00 11/09/24 09:34 Loperamide Hcl Oral Liquid 2 Mg/15 Ml Liquid PO 2 mg DAILY АЛЕКСАНДР Administration Loratadine 10 mg 11/09/24 09:00 11/09/24 07:49 Loratadine 10 Mg Tablet PO 10 mg DAILY АЛЕКСАНДР Administration Magnesium Oxide 400 mg 11/09/24 09:00 11/09/24 07:49 Magnesium Oxide 400 Mg Tablet PO 400 mg DAILY АЛЕКСАНДР Administration Metoprolol Succinate 12.5 mg 11/09/24 09:00 11/09/24 07:49 Metoprolol Succinate Er 12.5 Mg Halftab.Er.24h PO 12.5 mg DAILY АЛЕКСАНДР Administration Protocol Omeprazole 40 mg 11/09/24 06:30 11/09/24 05:58 Omeprazole 40 Mg Capsule. PO 40 mg DAILY@0630 АЛЕКСАНДР Administration Vitamin D 25 mcg 11/09/24 09:00 11/09/24 07:50 Cholecalciferol (Vitamin D3) 25 Mcg Tablet PO 25 mcg DAILY АЛЕКСАНДР Administration Medical Decision Making Medical Decision Making [facility] Narrative: Patient is presenting with a fall at home, we will obtain imaging of the shoulder, did not feel further imaging of the head and neck is indicated she did not have a head strike no LOC, the extremity swelling and redness that was considered to be cellulitis to my evaluation is likely necrosis from arterial insufficiency, we will obtain ultrasound of the arteries to evaluate for clots, we will hold off heparinization for now, I had our time palpating pulse in the right lower extremity, prior ultrasound of the leg was negative for DVT. This does not appear to be infectious etiology necessitating need for antibiotics. If workup is unremarkable we will plan for case management rehab 1100: 1. Extensive calcific atheromatous disease of the right lower extremity arterial structures. 2. No acute thrombus is identified. 3. There is evidence for significant peripheral vascular disease. I consulted vascular to discuss if there is any action regarding her exam and US findings is recc., but no acute ischemia 1133: Dr. Gillespie agrees that this is arterial insufficiency, recommended silver I will silver alendronate dressings to be changed every other day and to see Dr. Harman on outpatien basis next week Differential Diagnosis Differential Diagnoses: The differential diagnosis associated with the presentation includes (Head injury, neck injury, shoulder fracture, hip fracture, arterial insufficiency) Admission/Observation Consideration of admission/observation: Escalation of care including admission/observation considered 2022 Emergency Medicine Coding Guide from [employer] on 11/08/2024 All calculations should be rechecked by clinician prior to use RESULT SUMMARY: 5 Estimated Level of Service Problems: High (5) Risk: High (5) Data: Extensive (5) NARRATIVE MDM: This patient's problem complexity is High as patient: with chronic illness(es) with severe exacerbation/progression/side effects. This patient's risk is High due to: overall presentation requiring evaluation for a potentially High-risk process. This patient's data complexity is Extensive due to: -multiple tests ordered/reviewed -independent interpretation of imaging or EKG -discussion of management/testing with external professional INPUTS: Number and Complexity ?> 1 = 5: chronic illness w/severe exacerbation (a) Risk level ?> 4 = High Tests ordered ?> 3 = >= Tests results reviewed (excluding labs) ?> 2 = 2 Prior external notes reviewed ?> 0 = 0 Assessment requiring and independent historian ?> 0 = No Independent interpretation of tests ?> 1 = Yes Discussed management/test interpretation w/external professional ?> 1 = Yes Consult Healthcare Provider Management of the patient was discussed with: [employer] (Dr. Gillespie) Lab Data [facility] Lab Attestation statement: I reviewed the patient's lab results. 11/08/24 08:17 11/08/24 08:17 Labs: Lab Results 11/08/24 Range/Units 08:17 WBC 5.6 (4.8-10.8) X10*3/uL RBC 3.02 L (4.20-5.50) X10*6/uL Hgb 8.5 L (12.0-16.0) g/dl Hct 27.9 L (37.0-47.0) % MCV 92.4 (80.0-98.0) fL MCH 28.1 (27.0-33.0) pg MCHC 30.5 L (31.0-35.0) g/dl RDW 17.1 H (11.0-16.0) % Plt Count 197 (160-400) X10*3/uL MPV 9.4 (9.4-12.3) fL Immature Gran % (Auto) 0.7 H (0.0-0.4) % Neut % (Auto) 76.0 H (45-73) % Lymph % (Auto) 15.0 L (20-40) % Yancey % (Auto) 6.7 (2-11) % Eos % (Auto) 0.5 (0-4) % Baso % (Auto) 1.1 (0-2) % Lymph # (Auto) 0.8 L (1.2-4.9) X10*3/uL [place] # (Auto) 0.4 (0.1-1.2) X10*3/uL Eos # (Auto) 0.0 (0.0-0.4) X10*3/uL Baso # (Auto) 0.1 (0.0-0.2) X10*3/uL Abs Immat Gran (auto) 0.04 H (0.00-0.03) X10*3/uL Absolute Neuts (auto) 4.2 (2.0-8.3) x10*3/uL Absolute Nucleated RBC 0.000 (0.0-0.012) X10*3/uL Nucleated RBC % (auto) 0.0 (0.0-0.2) /100WBC Sodium 138 (135-145) mmol/L Potassium 4.8 D (3.3-5.1) mmol/L Chloride 106 (96-108) mmol/L Carbon Dioxide 24 (22-29) mmol/L Anion Gap 13 (12-20) BUN 37 H (9-16) mg/dL Creatinine 1.07 (0.5-1.4) mg/dL Estim Creat Clear Calc 25.7 Estimated GFR 49 Random Glucose 103 (60-115) mg/dL Calcium 8.7 D (8.4-10.2) mg/dL COVID-19 ([facility]) Negative (Negative) COVID-19 Clin Com See Note Critical Care Time Critical Care Time Critical Care Time: Yes Total Critical Care Time: 35 Attestation: Time is exclusive of separately billable procedures. Time includes: direct patient care, patient reassessment, coordination of patient care, interpretation of data (laboratory data, pulse oximetry, arterial blood gases and chest xrays), review of patient's medical records, medical consultation and documentation of patient care. Procedures excluded from critical care time: central intravenous line placement and electrocardiography. Discharge Plan Discharge Clinical Impression: Lower extremity arterial insufficiency, severe, right, Fall Patient Disposition: er SNF Transfer Details: [facility] Instructions: Peripheral Artery Disease (ED) Additional Instructions: You were evaluated in the ED following a fall. Your work up is reassuring. You have arterial insufficiency of your lower legs. General surgery was consulted, recommending silver alendronate dressings to be changed every other day. It is also recommended that you follow up with vascular surgery (dr. harman) outpatient. Referral starla go provided. Return with any new/ worsening symptoms. In the case of an emergency call 911. Prescriptions: No Action calcium carbonate [Calcium 600] 600 mg calcium (1,500 mg) Tablet 600 mg PO BID Qty: 180 4RF cholecalciferol (vitamin D3) 25 mcg (1,000 unit) capsule 25 mcg PO DAILY Qty: 90 3RF magnesium oxide 400 mg (241.3 mg magnesium) Tablet 1 tab PO DAILY Qty: 90 1RF loratadine 10 mg Tablet 10 mg PO DAILY omeprazole 40 mg capsule,delayed release(DR/EC) 40 mg PO DAILY@0630 metoprolol succinate 25 mg tablet extended release 24 hr 12.5 mg PO DAILY Align (B.longum) 10 million cell Capsule 10,000,000 cell PO DAILY loperamide [Imodium A-D] 1 mg/7.5 mL Liquid 2 mg PO DAILY gabapentin 100 mg capsule 100 mg PO DIRECTED Rx Instructions: Pt reports that she takes 100mg in morning, 100mg at noon, and 200mg at bedtime. furosemide [Lasix] 20 mg tablet 20 mg PO DAILY 14 Days Qty: 14 0RF Referrals: [facility] [Outside] - 1 day Referral Note: SHORT TERM REHAB Interventions: ED Discharge Assessment Last Done: 11/09/24 10:53 Discharge Date/Time: 11/09/24 11:29 Print Language: Sinhala
[2024-11-08 08:20] LABS: MANUAL DIFF FLAG NO
[2024-11-08 08:22] LABS: Hematocrit 27.9 % (37.0-47.0); Hemoglobin 8.5 g/dl (12.0-16.0); Imm Gran Abs Auto 0.04 X10*3/uL (0.00-0.03); Imm Gran Pct Auto 0.7 % (0.0-0.4); Lymphocytes Absolute Auto 0.8 X10*3/uL (1.2-4.9); Mean Corpuscular HGB Conc 30.5 g/dl (31.0-35.0); Mean Corpuscular Hemoglobin 28.1 pg (27.0-33.0); Mean Corpuscular Volume 92.4 fL (80.0-98.0); NRBC Abs Auto 0.000 X10*3/uL (0.0-0.012); NRBC Pct Auto 0.0 /100WBC (0.0-0.2); Platelet Count 197 X10*3/uL (160-400); Red Blood Count 3.02 X10*6/uL (4.20-5.50); White Blood Count 5.6 X10*3/uL (4.8-10.8)
[2024-11-08 08:33] LABS: Anion Gap 13 (12-20); Blood Urea Nitrogen 37 mg/dL (9-16); Calcium 8.7 mg/dL (8.4-10.2); Carbon Dioxide 24 mmol/L (22-29); Chloride 106 mmol/L (96-108); Creatinine Clr Calc Pharmacy 25.7; Estimated Glomerular Filt Rate 49; Potassium 4.8 mmol/L (3.3-5.1); Sodium 138 mmol/L (135-145)
[2024-11-08 08:57] LABS: COVID-19 Test Negative (Negative); IDNOW Serial# 55D5AD1C
--- NOTE | 2024-11-08 12:10 | P.CONGS_ITS ---
History of Present Illness Consult details Consult date: 11/08/24 Requesting physician: Gato Smith Narrative: The patient is an 84-year-old female who comes into the emergency room from her rehab facility secondary to a fall. She is doing okay but today further evaluation is being carried out for her right foot. She was seen here on and at that point these wounds and some erythema of her right foot was noted and she was treated for cellulitis. Venous duplex was carried out to rule out any DVT and no DVT was noted. She was noted so most likely have some type of arterial insufficiency and an outpatient appointment was scheduled to see Dr. Mike. Now while back in the emergency room this right foot is re-evaluate it and the actual open wounds on the dorsum looks larger and there still erythema. Arterial ultrasound was carried out which reveals peripheral vascular disease extending into the foot. On questioning the patient does the bit some degree of rest pain and says that the foot feels better dangling at the side of the bed. She does not do a lot of walking. She has never had any peripheral vascular disease issues before. She does not have diabetes in his not anticoagulated PMFSH Past Medical History Medical History Hyperlipidemia GERD (gastroesophageal reflux disease) Colitis HTN (hypertension) Cavitary lesion of lung History of breast cancer Diarrhea Family History Family History Father CHF (congestive heart failure) Mother Diabetes mellitus Brother No problems noted. Sister No problems noted. Daughter No problems noted. Son No problems noted. Son No problems noted. Surgical History Surgical History History of hip surgery History of mammogram History of excision of mass History of esophagogastroduodenoscopy (EGD) History of colonoscopy History of lumpectomy of right breast History of hysterectomy Social History Social History Household Members: None Housing: House Are you a primary residential child care counselor to a significant other at home: No Do you presently have visiting nurse or other home services: No Alcohol intake: never Patient Tobacco Use Status: Never used Tobacco Smoked in Last 30 Days: No e-Cigarette/Vaping Use: Never Used Second Hand Smoke Exposure: No Use of substances other than those prescribed or required for medical reasons: No Advance Directives: Yes Advance Directives on File: Yes Advance Directives Date on File: 12/16/19 Do you have a plan to hurt others: No Plan service: No Current occupational status: retired Cognitive needs: No Hearing needs: No Vision needs: Yes Meds Allergies Allergy/AdvReac Type Severity Reaction Status Date / Time codeine (CODEINE) Allergy Intermediate MOOD Verified 11/08/24 06:53 CHANGE, dizziness indigotindisulfonic acid Allergy Intermediate increased Verified 11/08/24 06:53 (Indigo [place]) blood pressure cephalexin (From KEFLEX) Allergy Unknown pt cannot Verified 11/08/24 06:53 remember reaction lisinopril (LISINOPRIL) AdvReac Intermediate dry cough Verified 11/08/24 06:53 simvastatin (From ZOCOR) AdvReac Unknown pt can't Verified 11/08/24 06:53 remember reaction Home Medications ?Medication ?Instructions ?Recorded ?Confirmed ?Last Taken ?Type loratadine 10 mg tablet 10 mg PO DAILY 07/17/2410/1110/25/24 History Bifidobacterium longum 10 million 10,000,000 cell PO D AILY 10/26/24 10/26/24 10/25/24 History cell capsule (Align (B.longum)) loperamide 1 mg/7.5 mL oral liquid 2 mg PO DAILY 10/2610/26/24 10/25/24 History (Imodium A-D) metoprolol succinate 25 mg 12.5 mg PO DAILY 10/26/24 0 10/26/24 10/25/24 History tablet,extended release 24 hr omeprazole 40 mg capsule,delayed 40 mg PO DAILY@0630 0 10/26/24 10/26/24 10/25/24 History release Physical Exam 2 Vital Signs: Vital Signs: Last Vital Signs Temp 97.8 F 11/08/24 08:22 Pulse 81 11/08/24 10:13 Resp 16 11/08/24 10:13 BP 134/49 L 11/08/24 10:13 Pulse Ox 99 11/08/24 10:13 O2 Del Method Room Air 11/08/24 10:13 BMI result Body Mass Index 17.6 Const: General: cooperative Nutritional Appearance: underweight and other (Frail) Orientation/consciousness: patient oriented x3 Neuro: General: patient oriented x3 Extrem: Other: Right lower extremity has a wound on the dorsal foot superficial measuring 2-1/2 by 2.1 cm into the dermal tissue. There some erythema around the dorsal foot and going up to the distal lower leg. The left foot is within normal limits. No palpable pedal pulses noted on the right foot but there maybe a slight monophasic dorsalis pedis heard. Results Labs 11/08/24 08:17 11/08/24 08:17 Labs: Abnormal lab results 11/08/24 Range/Units 08:17 RBC 3.02 L (4.20-5.50) X10*6/uL Hgb 8.5 L (12.0-16.0) g/dl Hct 27.9 L (37.0-47.0) % MCHC 30.5 L (31.0-35.0) g/dl RDW 17.1 H (11.0-16.0) % Immature Gran % (Auto) 0.7 H (0.0-0.4) % Neut % (Auto) 76.0 H (45-73) % Lymph % (Auto) 15.0 L (20-40) % Lymph # (Auto) 0.8 L (1.2-4.9) X10*3/uL Abs Immat Gran (auto) 0.04 H (0.00-0.03) X10*3/uL BUN 37 H (9-16) mg/dL Short CBC 11/08/24 Range/Units 08:17 WBC 5.6 (4.8-10.8) X10*3/uL Hgb 8.5 L (12.0-16.0) g/dl Hct 27.9 L (37.0-47.0) % Plt Count 197 (160-400) X10*3/uL BMP 11/08/24 08:17 Sodium 138 Potassium 4.8 D Chloride 106 Carbon Dioxide 24 BUN 37 H Creatinine 1.07 Calcium 8.7 D All other labs normal. Imaging Additional studies: Patient: Jyoti Wooten MR#: [id number] : 1940 Acct:[id number] Age/Sex: 84 / F ADM Date: 11/08/24 Loc: .ED Attending Dr: Ordering Physician: Gato Smith DO Date of Service: 11/08/24 Procedure(s): US arterial duplex LE RT Accession Number(s): [id number] cc: Regina Cole MD; Gato Smith DO~ EXAMINATION: US NONINVASIVE ASSESSMENT OF THE RIGHT LOWER EXTREMITY WITH ARTERIAL DUPLEX. CLINICAL INFORMATION: Rule out vascular thrombosis, evaluate for leg ischemia. COMPARISON: None available. TECHNIQUE: Duplex Doppler techniques with waveform analysis and measurement of velocities in the right common femoral, profunda femoris, superficial femoral, popliteal and tibial arteries were performed. FINDINGS: Atheromatous Plaque: There is calcific atheromatous plaque present diffusely. RIGHT FEMORAL RUNOFF VELOCITIES: The right common femoral artery measures 86 cm/s and triphasic. The right profunda femoral artery is 60 cm/s and is monophasic. The right proximal superficial femoral artery measures 83 cm/s and triphasic. The right mid superficial femoral artery is 62 cm/s and biphasic. The right distal right superficial femoral artery could not be well seen due to calcified plaque. The right popliteal velocity measures 23 cm/s and is monophasic. The right posterior tibial artery velocity measures 20 cm/s and is monophasic. The right peroneal artery velocity measures 28 cm/s and is monophasic. US/US arterial duplex LE RT IMPRESSION: 1. Extensive calcific atheromatous disease of the right lower extremity arterial structures. 2. No acute thrombus is identified. 3. There is evidence for significant peripheral vascular disease. 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 Patient already has an appointment with Dr. Mike but we will try to see if we can expedite that visit so that he can see her with a plan to carry out arterial angiography with possible stent placement. Patient understands and agrees with the above plan. In the meantime patient says that she has a already a wound care regimen for the wounds and I think that whatever that is can be continued. Procedures Date of Service Date of Service: 11/08/24
--- NOTE | 2024-11-08 13:05 | PC.NURSE ---
Patient placed in a hospital bed
--- NOTE | 2024-11-08 13:05 | MHC.EDTECH ---
pt transferred to hospital bed, bed alarm on, call within reach, bedside table within reach
--- NOTE | 2024-11-08 13:06 | MHC.EDTECH ---
pt was found incontinent of stool, cheryl care given, no other needs at this time
--- NOTE | 2024-11-08 13:32 | PC.NURSE ---
Report given to overflow. Patient transitioned in a hospital bed. Pending PT/CM
--- NOTE | 2024-11-08 14:14 | MHC.CM.ED ---
Received case management consult from Dr Smith. Patient came to the ER due to a fall. Work up essentially negative. Physical therapy eval ordered and pending. Met with patient in regards to discharge planning. Patient was at [facility] and d/c'd home on 11/07. Patient fell and came to the ER. If rehab is recommended, patient is hoping to return to [facility]. If [facility] is unable to offer a bed, patient aware referral will be broadcasted locally for bed offers. Copy of HCP verified to be on file. PCP verified. Continue to monitor for d/c needs.
--- NOTE | 2024-11-08 15:29 | PC.NURSE ---
Med rec done at pt bedside. Pt requesting something for pain. Takes gabapentin and tylenol at home.
--- NOTE | 2024-11-08 15:57 | P.CONGS_ITS ---
ON LICENSE OF [facility] Past Medical History Medical History Hyperlipidemia GERD (gastroesophageal reflux disease) Colitis HTN (hypertension) Cavitary lesion of lung History of breast cancer Diarrhea Family History Family History Father CHF (congestive heart failure) Mother Diabetes mellitus Brother No problems noted. Sister No problems noted. Daughter No problems noted. Son No problems noted. Son No problems noted. Surgical History Surgical History History of hip surgery History of mammogram History of excision of mass History of esophagogastroduodenoscopy (EGD) History of colonoscopy History of lumpectomy of right breast History of hysterectomy Social History Social History Household Members: None Housing: House Are you a primary medicare sales executive to a significant other at home: No Do you presently have visiting nurse or other home services: No Alcohol intake: never Patient Tobacco Use Status: Never used Tobacco Smoked in Last 30 Days: No e-Cigarette/Vaping Use: Never Used Second Hand Smoke Exposure: No Use of substances other than those prescribed or required for medical reasons: No Advance Directives: Yes Advance Directives on File: Yes Advance Directives Date on File: 12/16/19 Do you have a plan to hurt others: No Plan service: No Current occupational status: retired Cognitive needs: No Hearing needs: No Vision needs: Yes Meds Allergies Allergy/AdvReac Type Severity Reaction Status Date / Time codeine (CODEINE) Allergy Intermediate MOOD Verified 11/08/24 06:53 CHANGE, dizziness indigotindisulfonic acid Allergy Intermediate increased Verified 11/08/24 06:53 (Indigo [place]) blood pressure cephalexin (From KEFLEX) Allergy Unknown pt cannot Verified 11/08/24 06:53 remember reaction lisinopril (LISINOPRIL) AdvReac Intermediate dry cough Verified 11/08/24 06:53 simvastatin (From ZOCOR) AdvReac Unknown pt can't Verified 11/08/24 06:53 remember reaction Active Medications: Current Medications Furosemide (Furosemide 20 Mg Tablet) 20 mg PO DAILY АЛЕКСАНДР; Protocol Gabapentin (Gabapentin 100 Mg Capsule) 100 mg PO DIRECTED [facility] Loperamide HCl (Loperamide Hcl Oral Liquid 2 Mg/15 Ml Liquid) 2 mg PO DAILY [facility] Loratadine (Loratadine 10 Mg Tablet) 10 mg PO DAILY [facility] Magnesium Oxide (Magnesium Oxide 400 Mg Tablet) mg PO DAILY [facility] Metoprolol Succinate (Metoprolol Succinate Er 12.5 Mg Halftab.Er.24h) 12.5 mg PO DAILY [facility]; Protocol Non-Formulary Medication (Bifidobacterium Longum [Align (B.Longum)]) 10,000,000 cell PO DAILY [facility] Non-Formulary Medication (Calcium Carbonate [Calcium 600]) 600 mg PO BID [facility] Omeprazole (Omeprazole 40 Mg Capsule.Dr) 40 mg PO DAILY@0630 [facility] Vitamin D (Cholecalciferol (Vitamin D3) 25 Mcg Tablet) 25 mcg PO DAILY [facility] Home Medications ?Medication ?Instructions ?Recorded ?Confirmed ?Last Taken ?Type loratadine 10 mg tablet 10 mg PO DAILY 07/17/2410/1110/25/24 History Bifidobacterium longum 10 million 10,000,000 cell PO D AILY 10/26/24 10/26/24 10/25/24 History cell capsule (Align (B.longum)) loperamide 1 mg/7.5 mL oral liquid 2 mg PO DAILY 10/2610/26/24 10/25/24 History (Imodium A-D) metoprolol succinate 25 mg 12.5 mg PO DAILY 10/26/24 0 10/26/24 10/25/24 History tablet,extended release 24 hr omeprazole 40 mg capsule,delayed 40 mg PO DAILY@0630 0 10/26/24 10/26/24 10/25/24 History release gabapentin 100 mg capsule 100 mg PO DIRECTED 11/08/24 Unknown History Physical Exam 2 Vital Signs: Vital Signs: Last Vital Signs Temp 97.3 F 11/08/24 13:55 Pulse 90 11/08/24 13:55 Resp 18 11/08/24 13:55 BP 116/57 L 11/08/24 13:55 Pulse Ox 100 11/08/24 13:55 O2 Del Method Room Air 11/08/24 13:55 BMI result Body Mass Index 17.6 Results Labs 11/08/24 08:17 11/08/24 08:17 Labs: Abnormal lab results 11/08/24 Range/Units 08:17 RBC 3.02 L (4.20-5.50) X10*6/uL Hgb 8.5 L (12.0-16.0) g/dl Hct 27.9 L (37.0-47.0) % MCHC 30.5 L (31.0-35.0) g/dl RDW 17.1 H (11.0-16.0) % Immature Gran % (Auto) 0.7 H (0.0-0.4) % Neut % (Auto) 76.0 H (45-73) % Lymph % (Auto) 15.0 L (20-40) % Lymph # (Auto) 0.8 L (1.2-4.9) X10*3/uL Abs Immat Gran (auto) 0.04 H (0.00-0.03) X10*3/uL BUN 37 H (9-16) mg/dL Short CBC 11/08/24 Range/Units 08:17 WBC 5.6 (4.8-10.8) X10*3/uL Hgb 8.5 L (12.0-16.0) g/dl Hct 27.9 L (37.0-47.0) % Plt Count 197 (160-400) X10*3/uL BMP 11/08/24 08:17 Sodium 138 Potassium 4.8 D Chloride 106 Carbon Dioxide 24 BUN 37 H Creatinine 1.07 Calcium 8.7 D All other labs normal. Procedures Date of Service Date of Service: 11/08/24
--- NOTE | 2024-11-08 16:37 | MHC.CM.ED ---
Addendum entered by Whit Armendariz 11/08/24 20:02: Family accepts bed offer at [facility]. Facility made aware via [facility]. Will reach out in the am regarding discharge time. Pt will need BLS booked. Original Note: CM met with patient to discuss discharge planning. [facility] declined admission. STR referrals made. Multiple facilities have offered beds. Reviewed with patient. Pt requests that CM call her daughter. CM called her daughter, Karie Castorena. She is currently driving and will call me back.
--- NOTE | 2024-11-08 18:10 | PHA.MEDREC ---
Pharmacy Consult ? Medication Reconciliation Pharmacy has completed the medication reconciliation.CHECKED MED REC DONE BY NURSING
--- NOTE | 2024-11-08 18:15 | PC.NURSE ---
Pt alert and orientedx4. Complaining of lower leg pain, normally takes Gabapentin TID. Reports that she was using walker independently at home when she fell. She is using a bedpan at this time to avoid getting out of bed.
[2024-11-09 05:31] VITALS: BP 108/48; PULSE 80; RESP 15; TEMP 37.1; O2SAT 99
[2024-11-09 07:49] VITALS: BP 107/57; PULSE 81
[2024-11-09] MEDS: Metoprolol Succinate ER 12.5 MG HALFTAB.ER.24H PO (07:49)
--- NOTE | 2024-11-09 09:23 | MHC.CM.PN ---
PT IN [place], PER MICHAEL LAMAR PT CAN TRANSFER AFTER 11AM, [facility] FOR BLS TRANSPORT AT 11:30AM, CM CONTACTED PT'S DTR MATTIE AT 8:55AM #ON FILE, RAIMUNDO TAO IS AGREEABLE TO PLAN, [place] RN AND ED PROVIDER AWARE.
[2024-11-09] MEDS: Loperamide HCl Oral Liquid 2 MG/15 ML LIQUID PO (09:34)
[2024-11-09 10:53] VITALS: BP 108/48; PULSE 80; RESP 16; TEMP 37.1; O2SAT 100
== END 2024-11-09 11:29 | disposition skilled nursing facility (03) ==
PROVIDERS: Emergency Provider Emergency Medicine; PCP Internal Medicine
DX: I73.9 Peripheral vascular disease, unspecified (principal); I10 Essential (primary) hypertension; E78.5 Hyperlipidemia, unspecified; M25.511 Pain in right shoulder; S91.301D Unspecified open wound, right foot, subsequent encounter; Z03.818 Encounter for observation for suspected exposure to other biological agents ruled out; Z91.81 History of falling
CPT/HCPCS: 73030; 80048; 85025; 87635; 93926; 97162; 99285

== ENCOUNTER → 2024-11-08 07:18 | Outpatient (BNV) | payer MEDICARE, SELFPAY | PROVIDERS: Emergency Provider Emergency Medicine; PCP Internal Medicine; Visit Provider Surgery | DX: I73.9 Peripheral vascular disease, unspecified (principal) | CPT/HCPCS: 99283 ==

== ENCOUNTER → 2024-11-08 07:46 | Outpatient (BNV) | payer MEDICARE, SELFPAY | PROVIDERS: Emergency Provider Emergency Medicine; PCP Internal Medicine; Visit Provider Radiology Diagnostic Radiology | DX: I70.201 Unspecified atherosclerosis of native arteries of extremities, right leg (principal); M25.511 Pain in right shoulder; W19.XXXA Unspecified fall, initial encounter | CPT/HCPCS: 73030; 93926 ==

== ENCOUNTER 2024-11-19 13:54 | Outpatient (AMB) | payer MEDICARE, SELFPAY ==
--- NOTE | 2024-11-19 13:58 | MHC.OFFVIS ---
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 Pt states she gets wounds dressed QOD. Has wound on the top of her foot and on her ankle Optical Glass Inspector Required: No Accompanied by: Self / Same As Patient Allergies codeine (CODEINE) Allergy (Intermediate, Verified 11/19/24 14:00) MOOD CHANGE, dizziness indigotindisulfonic acid (Indigo [place]) Allergy (Intermediate, Verified 11/19/24 14:00) increased blood pressure cephalexin (From KEFLEX) Allergy (Unknown, Verified 11/19/24 14:00) pt cannot remember reaction lisinopril (LISINOPRIL) Adverse Reaction (Intermediate, Verified 11/19/24 14:00) dry cough simvastatin (From ZOCOR) Adverse Reaction (Unknown, Verified 11/19/24 14:00) pt can't remember reaction HPI HPI 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 For nonhealing right lower extremity ulcer. It had significant swelling and had developed a ulcer on the dorsum of the foot. It had been going on for several months and has progressively gotten worse. Of note she has CKD 3. She has been diagnosed with anemia and most recently had a transfusion. She now presents to us for vascular evaluation. [facility] Medical History Hyperlipidemia GERD (gastroesophageal reflux disease) Colitis HTN (hypertension) Cavitary lesion of lung History of breast cancer Diarrhea Surgical History History of hip surgery History of mammogram History of excision of mass History of esophagogastroduodenoscopy (EGD) History of colonoscopy History of lumpectomy of right breast History of hysterectomy Family History Father CHF (congestive heart failure) Mother Diabetes mellitus Brother No problems noted. Sister No problems noted. Daughter No problems noted. Son No problems noted. Son No problems noted. Social History Household Members: None Housing: House Are you a primary child care education coordinator to a significant other at home: No Do you presently have visiting nurse or other home services: No Alcohol intake: never Patient Tobacco Use Status: Never used Tobacco e-Cigarette/Vaping Use: Never Used Second Hand Smoke Exposure: No Advance Directives Date on File: 12/16/19 service: No Current occupational status: retired Cognitive needs: No Hearing needs: No Vision needs: Yes Review of Systems Const All systems reviewed & are unremarkable except as noted in HPI and below Reports no additional complaints ENT Reports Normal hearing present Card Denies chest pain, Denies chest pain at rest, Denies chest pain with activity and Denies pedal edema Resp Denies cough GI Denies abdominal pain Musc Denies abnormal gait, Denies muscle cramps and Denies radiating pain into limb Skin/Breast Denies skin ulcer and Denies wounds Neuro Reports Normal hearing present and Denies abnormal gait Psych Reports no additional complaints Physical Exam Const General: cooperative, healthy appearing and comfortable Orientation/consciousness: oriented to person, oriented to place and oriented to time HEENT Head: Yes normal to inspection Neck Neck: Yes normal visual inspection Carotids: no bruits Chest Chest palpation & inspection: normal inspection of the chest Resp Effort & Inspection: normal respiratory effort and able to speak in complete sentences Auscultation: clear to auscultation bilaterally, no crackles, no rales, no rhonchi and no wheezes Cardio Rate: regular rate Rhythm: regular rhythm Heart sounds: S1 normal heart sound present and S2 normal heart sound present Bruits: no carotid bruits Peripheral pulses: Peripheral pulses 2+ throughout GI Inspection: Yes normal to inspection Skin Other: Nonhealing ulcer on the dorsum and lateral aspect of right foot. Digits and foot look ischemic. Wounds: no wounds Hair: normal Neuro General: oriented to person, oriented to place and oriented to time Cranial nerves: Yes CN's II-XII intact bilaterally and Yes Normal hearing present Cognition (Neuro): normal cognition Motor exam (neuro): 5/5 motor strength present throughout Extrem Other: venous exam: No significant superficial varicosities or spider telangiectasias, minimal edema General: No clubbing, No cyanosis and No edema Psych Appearance: grossly normal Mental Status: mental status grossly normal Speech and movement: Normal speech and movement present Results Reviewed Results Reviewed: Noninvasive arterial testing dated 11/08/2024 demonstrates extensive calcifications throughout the right lower extremity. 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 The challenge here is her anemia. The hopes that her hemoglobin does stabilize. Should any vascular intervention be required would require significant amounts of anticoagulation which she may not be able to tolerate. We will get a CT angiogram to better elucidate her arterial status. (2) PAD (peripheral artery disease): Code(s): I73.9 - Peripheral vascular disease, unspecified Category: Medical Plan: Will obtain CT angiogram to evaluate arterial status and possible interventions. Orders: Orders Blood Urea Nitrogen Today I73.9 - Peripheral vascular disease, unspecified Creatinine Today I73.9 - Peripheral vascular disease, unspecified CT angio abd aorta runoff Today I73.9 - Peripheral vascular disease, unspecified Coding Level of Care Code New Pt Level 4 (61618) Complex EM visit Add On G2211 Diagnoses Critical limb ischemia of right lower extremity with ulceration of foot I70.235 PAD (peripheral artery disease) I73.9
== END 2024-11-19 15:00 | disposition home or self-care (01) ==
PROVIDERS: PCP Internal Medicine; Visit Provider Surgery Vascular Surgery
DX: I70.235 Atherosclerosis of native arteries of right leg with ulceration of other part of foot (principal)
CPT/HCPCS: 99204; G2211

== ENCOUNTER → 2024-11-19 13:54 | Outpatient (BNVA) | payer MEDICARE, SELFPAY | PROVIDERS: PCP Internal Medicine; Visit Provider Surgery Vascular Surgery | DX: I70.235 Atherosclerosis of native arteries of right leg with ulceration of other part of foot (principal); D64.9 Anemia, unspecified; N18.30 Chronic kidney disease, stage 3 unspecified | CPT/HCPCS: 99202 ==

== ENCOUNTER 2024-11-22 08:54 | Outpatient (REF) | payer MEDICARE, SELFPAY ==
--- NOTE | ~2024-11-22 | CT_ITS ---
CLINICAL HISTORY: I73.9 - Peripheral vascular disease, unspecified --- Additional Notes or Special Instructions: Nonhealing right lower extremity ulcer. Significant aortic disease. CT angio abdomen with bilateral lower extremity runoff and 3D post-processing Comparison: CT/REG/NM/SR - CT ABDOMEN PELVIS W IV CON - 07/17/24 09:[address] - CT ABDOMEN PELVIS WITH IV CONTRAST - 07/17/24 09:[address]/NM/SR - CT ABDOMEN PELVIS WO IV CON - 07/15/24 12:21 EDT Findings: No dissection or aneurysm of the abdominal aorta and its major branches. There is severe calcified atherosclerotic disease. There is occlusion versus near-complete occlusion of the proximal celiac artery for a length of 1.2 cm. There is significant stenosis of superior mesenteric and left renal arteries. There is near-complete occlusion of the origin of the right renal artery. There is significant stenosis of the origin of the inferior mesenteric artery. The right common femoral, deep femoral and proximal to mid femoral arteries are patent. There is multifocal significant stenosis of the right proximal and mid femoral arteries. There is occlusion of the right distal femoral artery with distal reconstitution. There is some flow within the popliteal artery with multifocal significant stenosis. There is flow within the right anterior/posterior tibial, peroneal and dorsalis pedis arteries, although the vessels are heavily calcified and there is multifocal significant stenosis. Left common femoral, deep femoral, proximal/mid/distal femoral and popliteal arteries are patent. There is multifocal significant stenosis of proximal/mid/distal femoral and popliteal arteries. There is flow within the left anterior/posterior tibial, peroneal and dorsalis pedis arteries, although the vessels are heavily calcified and there is multifocal significant stenosis. Small right and trace left pleural effusions with a mild amount of adjacent compressive atelectasis. Status post cholecystectomy. Dilation of the intrahepatic and extrahepatic bile ducts greater than expected status post cholecystectomy, stable. Persistent pneumobilia. The spleen is enlarged, measuring 13.8 cm in anterior-posterior dimension. Bilateral renal cysts and subcentimeter low attenuating lesions which are too small to characterize. Calcifications in the right renal pelvis are favored to be vascular. The bladder is distended, measuring 22.3 cm in craniocaudal dimension. There is subsequent mild fullness of the bilateral renal collecting systems, [id number]-left. Status post hysterectomy. The other solid organs are unremarkable. Small hiatal hernia. No bowel wall thickening or dilation. The appendix is not visualized. No secondary signs of acute appendicitis. No lymphadenopathy. No ascites. Severe height loss of T9, age indeterminate and not included in the field of view on the prior studies. Mild height loss T11, new and mild height loss of T12, unchanged. Status post fixation of the left femur with a long stem intramedullary kalani and screw fixation. The hardware is intact. Impression: Severe calcified atherosclerotic disease. 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 Near-complete occlusion of the origin of the right renal artery. Multifocal significant stenosis, detailed above. Distention of the bladder with subsequent mild fullness of the bilateral renal collecting systems. Small right and trace left pleural effusions. This document has been electronically signed by: Kathrin Fortune MD on 11/22/2024 16:37:07
[2024-11-22] MEDS: iohexoL 350 MG/ML 100 ML INFUS..BTL IV (10:00)
== END 2024-11-22 08:55 | disposition home or self-care (01) ==
LOC: HO.CT 08:54
PROVIDERS: PCP Internal Medicine; Visit Provider Surgery Vascular Surgery
DX: I73.9 Peripheral vascular disease, unspecified (principal)
CPT/HCPCS: 75635; Q9967

== ENCOUNTER → 2024-11-22 08:58 | Outpatient (BNV) | payer MEDICARE, SELFPAY | PROVIDERS: PCP Internal Medicine; Visit Provider Radiology Diagnostic Radiology | DX: I70.90 Unspecified atherosclerosis (principal) | CPT/HCPCS: 75635 ==

== ENCOUNTER 2024-11-26 13:44 | Outpatient (AMB) | payer MEDICARE, SELFPAY ==
--- NOTE | 2024-11-26 13:57 | MHC.OFFVIS ---
Vital Signs 11/26/24 13:57 Height 5 ft Intake Visit Reasons: follow up CTA w/ runoff 11/22/24 Intake Note: follow up CTA w/ runoff 11/22/24. Pt states dressing changed QOD Right foot non-healing wound Gas Or Petroleum Operator Required: No Accompanied by: Son Allergies codeine (CODEINE) Allergy (Intermediate, Verified 11/26/24 14:00) MOOD CHANGE, dizziness indigotindisulfonic acid (Indigo [place]) Allergy (Intermediate, Verified 11/26/24 14:00) increased blood pressure cephalexin (From KEFLEX) Allergy (Unknown, Verified 11/26/24 14:00) pt cannot remember reaction lisinopril (LISINOPRIL) Adverse Reaction (Intermediate, Verified 11/26/24 14:00) dry cough simvastatin (From ZOCOR) Adverse Reaction (Unknown, Verified 11/26/24 14:00) pt can't remember reaction HPI HPI follow up CTA w/ runoff 11/22/24: Details: Very complex and frail 84-year-old female presents for follow-up evaluation regarding nonhealing ulcers of the right lower extremity. According to the family they report she was independent and ambulating 3-4 months prior to the current time. Proximally 2 months ago she started to develop a nonhealing ulcer of the right lower extremity. [facility] in a completely evolved from there. Became a significant foot ulcer along with a new ankle ulcer over the past 2-3 weeks. She has a history of breast cancer. In addition she has a history of anemia of chronic disease. She was treated by Hematology-Oncology and at 1 point her lowest hemoglobin was 6.5. She has undergone CT angiogram and now presents for follow-up. [facility] Medical History Hyperlipidemia GERD (gastroesophageal reflux disease) Colitis HTN (hypertension) Cavitary lesion of lung History of breast cancer Diarrhea Surgical History History of hip surgery History of mammogram History of excision of mass History of esophagogastroduodenoscopy (EGD) History of colonoscopy History of lumpectomy of right breast History of hysterectomy Family History Father CHF (congestive heart failure) Mother Diabetes mellitus Brother No problems noted. Sister No problems noted. Daughter No problems noted. Son No problems noted. Son No problems noted. Social History Household Members: None Housing: House Are you a primary child care centre director to a significant other at home: No Do you presently have visiting nurse or other home services: No Alcohol intake: never Patient Tobacco Use Status: Never used Tobacco e-Cigarette/Vaping Use: Never Used Second Hand Smoke Exposure: No Advance Directives Date on File: 12/16/19 service: No Current occupational status: retired Cognitive needs: No Hearing needs: No Vision needs: Yes Review of Systems Const All systems reviewed & are unremarkable except as noted in HPI and below Reports no additional complaints ENT Reports Normal hearing present Card Denies chest pain, Denies chest pain at rest, Denies chest pain with activity and Denies pedal edema Resp Denies cough GI Denies abdominal pain Musc Denies abnormal gait, Denies muscle cramps and Denies radiating pain into limb Skin/Breast Denies skin ulcer and Denies wounds Neuro Reports Normal hearing present and Denies abnormal gait Psych Reports no additional complaints Physical Exam Const General: cooperative, healthy appearing and comfortable Orientation/consciousness: oriented to person, oriented to place and oriented to time HEENT Head: Yes normal to inspection Neck Neck: Yes normal visual inspection Carotids: no bruits Chest Chest palpation & inspection: normal inspection of the chest Resp Effort & Inspection: normal respiratory effort and able to speak in complete sentences Auscultation: clear to auscultation bilaterally, no crackles, no rales, no rhonchi and no wheezes Cardio Other: Right lower extremity no pulses. Rate: regular rate Rhythm: regular rhythm Heart sounds: S1 normal heart sound present and S2 normal heart sound present Bruits: no carotid bruits GI Inspection: Yes normal to inspection Skin Other: Ischemic forefoot. Lateral ankle ulcer. Wounds: wounds noted Hair: normal Neuro General: oriented to person, oriented to place and oriented to time Cranial nerves: Yes CN's II-XII intact bilaterally and Yes Normal hearing present Cognition (Neuro): normal cognition Motor exam (neuro): 5/5 motor strength present throughout Extrem Other: venous exam: No significant superficial varicosities or spider telangiectasias, minimal edema General: No clubbing, No cyanosis and No edema Psych Appearance: grossly normal Mental Status: mental status grossly normal Speech and movement: Normal speech and movement present Results Reviewed Results Reviewed: CT angiogram dated 11/22/2024 demonstrates significant atherosclerotic disease throughout the aorta. Right lower extremity includes occlusion of the right distal femoral artery with distal reconstitution some flow distally in the tibial vessels. Heavily calcified. In addition occlusion of celiac artery with high-grade stenosis of superior mesenteric and inferior mesenteric arteries. 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 Unfortunately I do not believe there is any safe arterial reconstruction opportunities for her. Especially in light of her overall comorbidities and anemia of chronic disease. She will require right below-knee amputation. Risks benefits complications of the operation were discussed in detail with the patient and the patient's family who was at bedside. They agreed and would like to move forward. We will try to schedule her as soon as possible. Thank you for allowing us to assist in her care. Coding Level of Care Code Est Pt Level 4 (80587) Complex EM visit Add On G2211 Diagnoses Critical limb ischemia of right lower extremity with ulceration of foot I70.235
== END 2024-11-26 14:40 | disposition home or self-care (01) ==
LOC: HO.HVS 13:44
PROVIDERS: PCP Internal Medicine; Visit Provider Surgery Vascular Surgery
DX: I70.235 Atherosclerosis of native arteries of right leg with ulceration of other part of foot (principal)
CPT/HCPCS: 99214; G2211

== ENCOUNTER → 2024-11-26 13:44 | Outpatient (BNVA) | payer MEDICARE, SELFPAY | PROVIDERS: PCP Internal Medicine; Visit Provider Surgery Vascular Surgery | DX: I70.235 Atherosclerosis of native arteries of right leg with ulceration of other part of foot (principal) | CPT/HCPCS: 99212 ==